=== PATIENT | female | born 1965 | race Two or more races ===

== ENCOUNTER 2016-11-06 18:39 | Inpatient (IN) | payer MEDICARE, OTHER ==
--- NOTE | 2016-11-06 19:38 | C.PDOC ---
History Of Present Illness pt presents with an expanding left upper breast mass. Worsening over the last few months. No f/c. Serous sanguineous drainage, some moderate discomfort. No f/ c/n/v. Time Seen by Provider: 11/06/16 19:35 Chief Complaint (Nursing): Abnormal Skin Integrity History Per: Patient, Family History/Exam Limitations: no limitations Onset/Duration Of Symptoms: Days (90), Gradual Current Symptoms Are (Timing): Worse Location Of Injury: Left: Chest (breast) Quality Of Symptoms: Painful, Swollen, Draining Severity: Moderate Pain Scale Rating Of: 6 Recent travel outside of the [place]: No Additional History Per: Family Past Medical History Reviewed: Historical Data, Nursing Documentation, Vital Signs Vital Signs: Last Vital Signs Temp 98.4 F 11/06/16 18:57 Pulse 120 H 11/06/16 20:30 Resp 20 11/06/16 20:30 BP 124/79 11/06/16 20:30 Pulse Ox 98 11/06/16 21:29 - Medical History PMH: Anemia, Arthritis, Rheumatoid Arthritis Family History: States: No Known Family Hx - Social History Hx Tobacco Use: No Hx Alcohol Use: No Hx Substance Use: No - Immunization History Hx Tetanus Toxoid Vaccination: No Hx Influenza Vaccination: Yes Hx Pneumococcal Vaccination: Yes Review Of Systems Constitutional: Negative for: Fever, Chills ENT: Negative for: Throat Pain Cardiovascular: Negative for: Chest Pain, Palpitations Respiratory: Negative for: Shortness of Breath Gastrointestinal: Negative for: Nausea, Vomiting, Abdominal Pain Genitourinary: Negative for: Dysuria Musculoskeletal: Negative for: Back Pain Skin: Positive for: Lesions (left breast) Neurological: Negative for: Weakness Psych: Negative for: Anxiety Physical Exam - Physical Exam Appears: Non-toxic Skin: Warm, Other (4x6 cm raised mass, tender, with some bloody exudates oozing) Head: Normacephalic Eye(s): bilateral: Normal Inspection Oral Mucosa: Moist Neck: Trachea Midline, Supple Lymphatic: Adenopathy (left axilla) Chest: Symmetrical, Other (left upper quadrant mass, tender, oozing sero sanguinous material,) Cardiovascular: Rhythm Regular Respiratory: No Rales, No Rhonchi, No Wheezing Gastrointestinal/Abdominal: Soft, No Tenderness Back: No CVA Tenderness Extremity: Tenderness, Other (b/l hand arthitis changes) Extremity: Bilateral: Atraumatic Neurological/Psych: Oriented x3, Normal Speech, Normal Cognition Gait: Steady ED Course And Treatment - Laboratory Results Result Diagrams: 11/06/16 19:59 11/06/16 19:59 O2 Sat by Pulse Oximetry: 98 (RA) Pulse Ox Interpretation: Normal - CT Scan/US CT Chest w/o contrast Other Rad Studies (CT/US): Interpreted By Me, Read By Radiologist CT/US Interpretation: EXAM: CT Chest Without Intravenous Contrast. CLINICAL HISTORY: 50 years old, female; Signs and symptoms; Mass, lump, or swelling in the chest; Additional info: Left. breast mass. TECHNIQUE: Axial computed tomography images of the chest without intravenous contrast. This CT exam was. performed using one or more of the following dose reduction techniques: automated exposure. control, adjustment of the mA and/or kV according to patient size, and/or use of iterative. reconstruction technique. Coronal and sagittal reformatted images were created and reviewed. EXAM DATE/TIME: 2016 7:51 PM. COMPARISON: There are no prior studies for comparison. FINDINGS : Lungs and pleural spaces: Trachea and main bronchi are patent. There is a 5.3 mm right lower lobe. pulmonary nodule. There is a 3 mm right upper lobe peripheral pulmonary nodule. There is a 7.6. mm left upper lobe nodule. There is minimal atelectasis and scarring at the right base. There is a left. effusion. There is compressive atelectasis at the left base. Heart and vasculature: Heart size is normal. There is no pericardial effusion.Aorta and main. pulmonary artery are normal in caliber.There are vascular calcifications. Mediastinum: Esophagus is not optimally demonstrated. There is shotty mediastinal nodes.[facility] are. not optimally evaluated without contrast material. Thyroid: Thyroid is unremarkable. Bones/joints: There is a focal lucent lesion in the L1 vertebral body. There is an infiltrative lesion at. T8. Soft tissues: There is edema in the left chest wall. There is paucity of body fat. Lymph nodes: There is a mass in the left breast. Mass is incompletely imaged. Lesion measures. at least 5.2 x 4 x 4.3 cm. there is left axillary adenopathy. There are shotty right axillary nodes. Upper abdomen: Streak and motion limited evaluation of the upper abdomen. There are bilateral. nonobstructing renal stones. IMPRESSION: 5.2 x 4 x 4.3 cm incompletely imaged left breast mass, left axillary adenopathy,. pulmonary nodules and bone lesions. Findings are suspicious for malignancy and metastatic disease. Biopsy and PET CT advised Progress Note: blood work, ct chest Disposition Discussed With Dr.: Shan Martinez Comment: accepted the pt on his service adn took over the care at 9:26 PM Doctor Will See Patient In The: Hospital Counseled Patient/Family Regarding: Studies Performed, Diagnosis - Disposition Disposition: HOSPITALIZED Disposition Time: 19:38 Condition: FAIR - POA Present On Arrival: Poor Glycemic Control - Clinical Impression Clinical Impression: Breast mass, left, Anemia Decision To Admit - Pt Status Changed To: Hospital Disposition Of: Inpatient - Admit Certification Admit to Inpatient:: After my assessment, the patient will require hospitalization for at least two midnights. This is because of the severity of symptoms shown, intensity of services needed, and/or the medical risk in this patient being treated as an outpatient. - InPatient: Physician Admission Certification: I certify that this patient requires 2 or more midnights of care for the following reason:: After my assessment, the patient will require hospitalization for at least two midnights. This is because of the severity of symptoms shown, intensity of services needed, and/or the medical risk in this patient being treated as an outpatient. - . Bed Request Type: Regular Admitting Physician: Shan Martinez Patient Diagnosis: Breast mass, left, Anemia
[2016-11-06] MEDS ORDERED: Sodium Chloride 0.9% 1,000 ML IV ONE (19:51)
[2016-11-06 20:04] LABS: BASO # 0.1 K/uL (0.0-0.2); EOS # 0.2 K/uL (0.0-0.7); EOS % 3.6 % (0.0-4.0); LYMPH # 1.4 K/uL (1.0-4.3); MONO # 0.2 K/uL (0.0-0.8); WHITE BLOOD COUNT 6.9 K/uL (4.8-10.8)
[2016-11-06 20:12] LABS: BASO % 1.8 % (0.0-2.0); HEMATOCRIT 24.7 % (34.0-47.0); LYMPH % 20.5 % (20.0-40.0); MEAN CORPUSCULAR HEMOGLOBIN 15.2 pg (27.0-31.0); MEAN CORPUSCULAR HGB CONC 28.9 g/dL (33.0-37.0); NRBC % 0.1 % (0.0-2.0); RED CELL DISTRIBUTION WIDTH 21.3 % (11.5-14.5)
[2016-11-06 20:13] LABS: MEAN CELL VOLUME 52.5 fL (81.0-99.0)
[2016-11-06 20:14] LABS: CHLORIDE 101 mmol/L (98-107); INR 1.1
[2016-11-06 20:15] LABS: POTASSIUM 4.1 mmol/L (3.6-5.2); SODIUM 135 mmol/L (132-148)
[2016-11-06 20:17] LABS: GFR AFRICAN-AMERICAN > 60
[2016-11-06 20:18] LABS: ALB/GLOB RATIO 0.7 (1.0-2.1); ALKALINE PHOSPHATASE 111 U/L (38-126); ALT/SGPT 17 U/L (9-52); AST/SGOT 31 U/L (14-36); BILIRUBIN,TOTAL 0.6 mg/dL (0.2-1.3); BLOOD UREA NITROGEN 13 mg/dL (7-17); CALCIUM 8.9 mg/dl (8.6-10.4); CARBON DIOXIDE 22 mmol/L (22-30); GLUCOSE,RANDOM 145 mg/dL (65-105)
--- NOTE | 2016-11-06 21:15 | CT ---
EXAM: CT Chest Without Intravenous Contrast CLINICAL HISTORY: 50 years old, female; Signs and symptoms; Mass, lump, or swelling in the chest; Additional info: Left breast mass TECHNIQUE: Axial computed tomography images of the chest without intravenous contrast. This CT exam was performed using one or more of the following dose reduction techniques: automated exposure control, adjustment of the mA and/or kV according to patient size, and/or use of iterative reconstruction technique. Coronal and sagittal reformatted images were created and reviewed. EXAM DATE/TIME: 11/06/2016 7:51 PM COMPARISON: There are no prior studies for comparison. FINDINGS: Lungs and pleural spaces: Trachea and main bronchi are patent. There is a 5.3 mm right lower lobe pulmonary nodule. There is a 3 mm right upper lobe peripheral pulmonary nodule. There is a 7.6 mm left upper lobe nodule. There is minimal atelectasis and scarring at the right base. There is a left effusion. There is compressive atelectasis at the left base Heart and vasculature: Heart size is normal. There is no pericardial effusion.Aorta and main pulmonary artery are normal in caliber.There are vascular calcifications. Mediastinum: Esophagus is not optimally demonstrated. There is shotty mediastinal nodes.Mercy are not optimally evaluated without contrast material. Thyroid: Thyroid is unremarkable. Bones/joints: There is a focal lucent lesion in the L1 vertebral body. There is an infiltrative lesion at T8. Soft tissues: There is edema in the left chest wall. There is paucity of body fat. Lymph nodes: There is a mass in the left breast. Mass is incompletely imaged. Lesion measures at least 5.2 x 4 x 4.3 cm. there is left axillary adenopathy. There are shotty right axillary nodes. Upper abdomen: Streak and motion limited evaluation of the upper abdomen. There are bilateral nonobstructing renal stones IMPRESSION: 5.2 x 4 x 4.3 cm incompletely imaged left breast mass, left axillary adenopathy, pulmonary nodules and bone lesions Findings are suspicious for malignancy and metastatic disease Biopsy and PET CT advised
[2016-11-07] MEDS ORDERED: DiphenhydrAMINE 50 mg/ml Inj IVP ONE (04:00)
[2016-11-07] MEDS ORDERED: Acetaminophen 650mg/20.3ml solution UD PO ONE (04:41)
--- NOTE | 2016-11-07 06:45 | CP.PCM.CON ---
History of Present Illness - History of Present Illness History of Present Illness: Surgery: Dr. Trinidad CC: L Breast mass HPI: 50F w. PMH of RA and anxiety presents w. L side breast mass. Pt states that she first noticed breast mass about a yr ago. She states that the mass was initially small but gradually grew over time. She states that the growth was rapid over the last 2 months. This is the first time she has seen a doctor to address the mass. She denies any pain. She states that over the last 2 month the mass bleeds on a daily basis, sometime there is a moderate amount of bleeding. She does report an unintentional 40lb weight loss over past yr. She reports decreased appetite, no N/V. She has constipation. She reports chronic neck/back pain. She denies fever, reports chills. No SANTOS, + blurred vision, no CP /palpitations, no SOB/cough. No Hematuria/dysuria PMH: see above PSH: x 2 Meds: MAR reviewed ALL: cipro, PCN Social: No ETOH/tobacco/drugs Fhx: No family hx of breast CA Review of Systems - Review of Systems All systems: reviewed and no additional remarkable complaints except (HPI) Past Patient History - Infectious Disease Hx of Infectious Diseases: None - Past Medical History & Family History Past Medical History?: Yes - Past Social History Smoking Status: Never Smoked - CARDIAC Hx Cardiac Disorders: No - PULMONARY Hx Respiratory Disorders: No - NEUROLOGICAL Hx Neurological Disorder: No - HEENT Hx HEENT Problems: No - RENAL Hx Chronic Kidney Disease: No - ENDOCRINE/METABOLIC Hx Endocrine Disorders: No - HEMATOLOGICAL/ONCOLOGICAL Hx Anemia: Yes Hx Blood Transfusions: Yes (2016) Hx Blood Transfusion Reaction: Yes (elevated temp) - INTEGUMENTARY Hx Dermatological Problems: Yes Other/Comment: left upper chest mass - MUSCULOSKELETAL/RHEUMATOLOGICAL Hx Musculoskeletal Disorders: Yes Hx Arthritis: Yes (severe athritis) Hx Falls: No Hx Rheumatoid Arthritis: Yes - GASTROINTESTINAL Hx Gastrointestinal Disorders: No - GENITOURINARY/GYNECOLOGICAL Other/Comment: menopausal - PSYCHIATRIC Hx Anxiety: Yes Hx Substance Use: No - SURGICAL HISTORY Hx Surgeries: Yes Hx Section: Yes (x2) Other/Comment: d&c - ANESTHESIA Hx Anesthesia: Yes Hx Anesthesia Reactions: No Meds Allergies/Adverse Reactions: Allergies Allergy/AdvReac Type Severity Reaction Status Date / Time ciprofloxacin [From Cipro] Allergy Verified 11/06/16 19:50 magnesium Allergy Verified 11/06/16 19:50 Penicillins Allergy Verified 11/06/16 19:50 - Medications Medications: Current Medications Morphine Sulfate (Morphine) 2 mg IVP Q6 PRN PRN Reason: pain Physical Exam - Constitutional Appears: Non-toxic, No Acute Distress - Head Exam Head Exam: ATRAUMATIC, NORMOCEPHALIC - Eye Exam Eye Exam: EOMI - ENT Exam ENT Exam: Mucous Membranes Moist, Normal External Ear Exam - Neck Exam Neck exam: Positive for: Full Rom - Respiratory Exam Respiratory Exam: NORMAL BREATHING PATTERN. absent: Accessory Muscle Use, Respiratory Distress - GI/Abdominal Exam GI & Abdominal Exam: Soft. absent: Tenderness - Extremities Exam Extremities exam: Negative for: calf tenderness, pedal edema - Skin Additional comments: R Breast: No palpable masses, no lymphadenopathy L Breast: ~4x5cm exophytic mass in LUQ, hard, nontender, +erythema w. bleeding, no fluctuance, + axillary lymphadenopathy Nurse present for exam Results - Vital Signs Recent Vital Signs: Last Vital Signs Temp 98.0 F 11/07/16 06:14 Pulse 92 H 11/07/16 06:14 Resp 20 11/07/16 06:14 BP 110/67 11/07/16 06:14 Pulse Ox 98 11/06/16 23:21 - Labs Result Diagrams: 11/06/16 19:59 11/06/16 19:59 - Imaging and Cardiology CT scan - chest Status: Image reviewed by me, Report reviewed by me Assessment & Plan - Assessment and Plan (Free Text) Assessment: 50F w. L breast mass -will plan for core needle bx at bedside today -d/w attending Marii PGY2
--- NOTE | 2016-11-07 12:08 | CP.PCM.PN ---
Subjective - Date & Time of Evaluation Date of Evaluation: 11/07/16 Time of Evaluation: 08:10 - Subjective Subjective: HPI: 50F w. PMH of RA, anemia, and anxiety presents w. L side breast mass. Pt states that she first noticed breast mass about 1 year ago. She states that the mass was initially small but gradually grew over time. She states that the growth was rapid over the last 2 months. This is the first time she has seen a doctor to address the mass. She denies any pain. She states that over the last 2 month the mass bleeds on a daily basis, sometime there is a moderate amount of bleeding. Over the past year, she admits to decreased appetite, but denies any major weight loss (daughter agrees, stating she has always had a hard time gaining weight). She has constipation. She reports chronic neck/back pain. She denies fever, reports chills. No SANTOS, + blurred vision, no CP/palpitations, no SOB/cough. No Hematuria/dysuria. PMH: RA, Anemia, anxiety, L breast mass PSH: x 2 Meds: MAR reviewed ALL: cipro, PCN Social: No ETOH/tobacco/drugs Fhx: No family hx of breast CA Objective - Vital Signs/Intake and Output Vital Signs (last 24 hours): Temp Pulse Resp BP Pulse Ox 98.2 F 82 20 121/72 99 11/07/16 08:32 11/07/16 08:32 11/07/16 08:32 11/07/16 08:32 11/07/16 07:27 Intake and Output: 11/07/16 11/07/16 06:59 18:59 Intake Total 130 475 Balance 130 475 - Medications Medications: Current Medications Morphine Sulfate (Morphine) 2 mg IVP Q6 PRN PRN Reason: pain - Labs Labs: PT 12.7 SECONDS (9.7-12.2) H 11/06/16 19:59 INR 1.1 11/06/16 19:59 APTT 22 SECONDS (21-34) 11/06/16 19:59 - Additional Findings Additional findings: - Constitutional Appears: Non-toxic, No Acute Distress - Head Exam Head Exam: ATRAUMATIC, NORMOCEPHALIC - Eye Exam Eye Exam: EOMI - ENT Exam ENT Exam: Mucous Membranes Moist, Normal External Ear Exam - Neck Exam Neck exam: Positive for: Full Rom - Respiratory Exam Respiratory Exam: NORMAL BREATHING PATTERN. absent: Accessory Muscle Use, Respiratory Distress - Cardiovascular Exam Cardiovascular Exam: REGULAR RHYTHM, +S1, +S2 - GI/Abdominal Exam GI & Abdominal Exam: Soft. absent: Tenderness - Extremities Exam Extremities exam: Negative for: calf tenderness, pedal edema - Skin Additional comments: R Breast: No palpable masses, no lymphadenopathy L Breast: 4x4cm mass in LUQ (hard, nontender, +erythema, + axillary lymphadenopathy) Assessment and Plan - Assessment and Plan (Free Text) Assessment: Breast Mass - Left -CT chest w/o contrast - 5.2 x 4 x 4.3 cm incompletely imaged left breast mass , left axillary adenopathy, pulmonary nodules and bone lesions. Findings are suspicious for malignancy and metastatic disease. Biopsy and PET CT advised -Consult Surgery, Dr. Trinidad, f/u recs -Plan for core needle bx at bedside today -Morphine Sulfate (Morphine) 2 mg IVP Q6 PRN, pain -Consult Pulm, Dr. Acosta, f/u recs (lung nodule, r/o mets) Anemia - Hgb 7.7, mcv 56.3 - Hgb 7.1 on admission -> transfused 1u PRBC - type and screen - UA with trace leuk esterase, negative nitrate, +squamous epith cells, likely contaminant. Patient asymptomatic. Prophylaxis - regular diet - pepcid 20mg po qd
[2016-11-07 13:15] LABS: RBC URINE 25 /hpf (0-3); URINE BACTERIA RARE (<OCC); URINE BILIRUBIN NEGATIVE (NEGATIVE); URINE BLOOD 1+ (NEGATIVE); URINE COLOR Yellow (YELLOW); URINE GLUCOSE (UA) NORMAL (Normal); URINE KETONE NEGATIVE (NEGATIVE); URINE LEUKOCYTE ESTERASE TRACE Leu/uL (Negative); URINE PROTEIN 1+ mg/dL (NEGATIVE); URINE UROBILINOGEN NORMAL mg/dL (0.2-1.0); WBC URINE 13 /hpf (0-5)
[2016-11-07 14:42] LABS: BASO % 0.3 % (0.0-2.0); EOS # 0.1 K/uL (0.0-0.7); EOS % 0.9 % (0.0-4.0); HEMATOCRIT 25.2 % (34.0-47.0); LYMPH # 0.7 K/uL (1.0-4.3); LYMPH % 6.7 % (20.0-40.0); MEAN CORPUSCULAR HEMOGLOBIN 17.1 pg (27.0-31.0); MEAN CORPUSCULAR HGB CONC 30.4 g/dL (33.0-37.0); MEAN PLATELET VOLUME 8.6 fL (7.2-11.7); MONO # 0.4 K/uL (0.0-0.8); MONO % 3.6 % (0.0-10.0)
[2016-11-07 14:50] LABS: WHITE BLOOD COUNT 10.5 K/uL (4.8-10.8)
[2016-11-07 14:51] LABS: MEAN CELL VOLUME 56.3 fL (81.0-99.0); PLATELET COUNT 448 K/uL (130-400)
[2016-11-07 14:55] LABS: CHLORIDE 105 mmol/L (98-107); POTASSIUM 3.6 mmol/L (3.6-5.2); SODIUM 137 mmol/L (132-148)
[2016-11-07 14:57] LABS: ALB/GLOB RATIO 0.7 (1.0-2.1); ALKALINE PHOSPHATASE 86 U/L (38-126); ALT/SGPT 8 U/L (9-52); AST/SGOT 22 U/L (14-36); BILIRUBIN,TOTAL 1.4 mg/dL (0.2-1.3); BLOOD UREA NITROGEN 14 mg/dL (7-17); CARBON DIOXIDE 24 mmol/L (22-30); GFR AFRICAN-AMERICAN > 60; TOTAL PROTEIN 7.6 g/dL (6.3-8.3)
[2016-11-07 14:58] LABS: CALCIUM 8.4 mg/dl (8.6-10.4); GLUCOSE,RANDOM 117 mg/dL (65-105); MAGNESIUM 1.9 mg/dL (1.6-2.3); PHOSPHOROUS 3.3 mg/dL (2.5-4.5)
--- NOTE | 2016-11-07 15:43 | CP.PCM.CON ---
Past Patient History - Infectious Disease Hx of Infectious Diseases: None - Past Medical History & Family History Past Medical History?: Yes - Past Social History Smoking Status: Never Smoked - CARDIAC Hx Cardiac Disorders: No - PULMONARY Hx Respiratory Disorders: No - NEUROLOGICAL Hx Neurological Disorder: No - HEENT Hx HEENT Problems: No - RENAL Hx Chronic Kidney Disease: No - ENDOCRINE/METABOLIC Hx Endocrine Disorders: No - HEMATOLOGICAL/ONCOLOGICAL Hx Anemia: Yes Hx Blood Transfusions: Yes (2016) Hx Blood Transfusion Reaction: Yes (elevated temp) - INTEGUMENTARY Hx Dermatological Problems: Yes Other/Comment: left upper chest mass - MUSCULOSKELETAL/RHEUMATOLOGICAL Hx Musculoskeletal Disorders: Yes Hx Arthritis: Yes (severe athritis) Hx Falls: No Hx Rheumatoid Arthritis: Yes - GASTROINTESTINAL Hx Gastrointestinal Disorders: No - GENITOURINARY/GYNECOLOGICAL Other/Comment: menopausal - PSYCHIATRIC Hx Anxiety: Yes Hx Substance Use: No - SURGICAL HISTORY Hx Surgeries: Yes Hx Section: Yes (x2) Other/Comment: d&c - ANESTHESIA Hx Anesthesia: Yes Hx Anesthesia Reactions: No Meds Allergies/Adverse Reactions: Allergies Allergy/AdvReac Type Severity Reaction Status Date / Time ciprofloxacin [From Cipro] Allergy Verified 11/06/16 19:50 magnesium Allergy Verified 11/06/16 19:50 Penicillins Allergy Verified 11/06/16 19:50 - Medications Medications: Current Medications Morphine Sulfate (Morphine) 2 mg IVP Q6 PRN PRN Reason: pain Results - Vital Signs Recent Vital Signs: Last Vital Signs Temp 98.2 F 11/07/16 08:32 Pulse 82 11/07/16 08:32 Resp 20 11/07/16 08:32 BP 121/72 11/07/16 08:32 Pulse Ox 99 11/07/16 07:27 - Labs Result Diagrams: 11/07/16 14:25 11/07/16 14:25 Labs: Laboratory Results - last 24 hr 11/07/16 11/07/16 11/07/16 12:53 14:25 14:25 WBC 10.5 D RBC 4.48 Hgb 7.7 L Hct 25.2 L MCV 56.3 L D MCH 17.1 L MCHC 30.4 L RDW 25.0 H Plt Count 448 H D MPV 8.6 Neut % (Auto) 88.5 H Lymph % (Auto) 6.7 L Nelson % (Auto) 3.6 Eos % (Auto) 0.9 Baso % (Auto) 0.3 Neut # 9.3 H Lymph # 0.7 L Nelson # 0.4 Eos # 0.1 Baso # 0.0 Sodium 137 Potassium 3.6 Chloride 105 Carbon Dioxide 24 Anion Gap 12 BUN 14 Creatinine 0.5 L Est GFR ( Amer) > 60 Est GFR (Non-Af Amer) > 60 Random Glucose 117 H Calcium 8.4 L Phosphorus 3.3 Magnesium 1.9 Total Bilirubin 1.4 H AST 22 ALT 8 L D Alkaline Phosphatase 86 Total Protein 7.6 Albumin 3.2 L Globulin 4.4 H Albumin/Globulin Ratio 0.7 L Urine Color Yellow Urine Clarity Clear Urine pH 5.0 Ur Specific [place] 1.028 Urine Protein 1+ H Urine Glucose (UA) Normal Urine Ketones Negative Urine Blood 1+ H Urine Nitrate Negative Urine Bilirubin Negative Urine Urobilinogen Normal Ur Leukocyte Esterase Trace Urine WBC (Auto) 13 H Urine RBC (Auto) 25 H Ur Squamous Epith Cells 7 H Urine Bacteria Rare Urine HCG, Qual Negative
[2016-11-07 16:06] LABS: NEUTROPHIL 90 % (50-75); TOTAL CELLS COUNTED 100
--- NOTE | 2016-11-07 16:06 | CP.PCM.HP ---
Past Patient History - Infectious Disease Hx of Infectious Diseases: None - Past Medical History & Family History Past Medical History?: Yes - Past Social History Smoking Status: Never Smoked - CARDIAC Hx Cardiac Disorders: No - PULMONARY Hx Respiratory Disorders: No - NEUROLOGICAL Hx Neurological Disorder: No - HEENT Hx HEENT Problems: No - RENAL Hx Chronic Kidney Disease: No - ENDOCRINE/METABOLIC Hx Endocrine Disorders: No - HEMATOLOGICAL/ONCOLOGICAL Hx Anemia: Yes Hx Blood Transfusions: Yes (2016) Hx Blood Transfusion Reaction: Yes (elevated temp) - INTEGUMENTARY Hx Dermatological Problems: Yes Other/Comment: left upper chest mass - MUSCULOSKELETAL/RHEUMATOLOGICAL Hx Musculoskeletal Disorders: Yes Hx Arthritis: Yes (severe athritis) Hx Falls: No Hx Rheumatoid Arthritis: Yes - GASTROINTESTINAL Hx Gastrointestinal Disorders: No - GENITOURINARY/GYNECOLOGICAL Other/Comment: menopausal - PSYCHIATRIC Hx Anxiety: Yes Hx Substance Use: No - SURGICAL HISTORY Hx Surgeries: Yes Hx Section: Yes (x2) Other/Comment: d&c - ANESTHESIA Hx Anesthesia: Yes Hx Anesthesia Reactions: No Meds Allergies/Adverse Reactions: Allergies Allergy/AdvReac Type Severity Reaction Status Date / Time ciprofloxacin [From Cipro] Allergy Verified 11/06/16 19:50 magnesium Allergy Verified 11/06/16 19:50 Penicillins Allergy Verified 11/06/16 19:50 Physical Exam - Constitutional Appears: Well - Head Exam Head Exam: ATRAUMATIC, NORMAL INSPECTION, NORMOCEPHALIC - Eye Exam Eye Exam: EOMI, Normal appearance, PERRL Pupil Exam: NORMAL ACCOMODATION, PERRL - ENT Exam ENT Exam: Mucous Membranes Moist, Normal Exam - Neck Exam Neck exam: Positive for: Normal Inspection - Respiratory Exam Respiratory Exam: Decreased Breath Sounds - Cardiovascular Exam Cardiovascular Exam: REGULAR RHYTHM, +S1, +S2 - GI/Abdominal Exam GI & Abdominal Exam: Diminished Bowel Sounds, Soft - Rectal Exam Rectal Exam: Deferred Results - Vital Signs Recent Vital Signs: Last Vital Signs Temp 98.2 F 11/07/16 08:32 Pulse 82 11/07/16 08:32 Resp 20 11/07/16 08:32 BP 121/72 11/07/16 08:32 Pulse Ox 99 11/07/16 07:27 - Labs Result Diagrams: 11/07/16 14:25 11/07/16 14:25 Labs: Laboratory Results - last 24 hr 11/07/16 11/07/16 11/07/16 12:53 14:25 14:25 WBC 10.5 D RBC 4.48 Hgb 7.7 L Hct 25.2 L MCV 56.3 L D MCH 17.1 L MCHC 30.4 L RDW 25.0 H Plt Count 448 H D MPV 8.6 Neut % (Auto) 88.5 H Lymph % (Auto) 6.7 L Elliott % (Auto) 3.6 Eos % (Auto) 0.9 Baso % (Auto) 0.3 Neut # 9.3 H Lymph # 0.7 L Elliott # 0.4 Eos # 0.1 Baso # 0.0 Sodium 137 Potassium 3.6 Chloride 105 Carbon Dioxide 24 Anion Gap 12 BUN 14 Creatinine 0.5 L Est GFR ( Amer) > 60 Est GFR (Non-Af Amer) > 60 Random Glucose 117 H Calcium 8.4 L Phosphorus 3.3 Magnesium 1.9 Total Bilirubin 1.4 H AST 22 ALT 8 L D Alkaline Phosphatase 86 Total Protein 7.6 Albumin 3.2 L Globulin 4.4 H Albumin/Globulin Ratio 0.7 L Urine Color Yellow Urine Clarity Clear Urine pH 5.0 Ur Specific [place] 1.028 Urine Protein 1+ H Urine Glucose (UA) Normal Urine Ketones Negative Urine Blood 1+ H Urine Nitrate Negative Urine Bilirubin Negative Urine Urobilinogen Normal Ur Leukocyte Esterase Trace Urine WBC (Auto) 13 H Urine RBC (Auto) 25 H Ur Squamous Epith Cells 7 H Urine Bacteria Rare Urine HCG, Qual Negative
[2016-11-08 06:34] LABS: BASO % 0.6 % (0.0-2.0); EOS # 0.3 K/uL (0.0-0.7); EOS % 5.8 % (0.0-4.0); HEMATOCRIT 23.5 % (34.0-47.0); LYMPH # 1.4 K/uL (1.0-4.3); LYMPH % 23.4 % (20.0-40.0); MEAN CELL VOLUME 56.2 fL (81.0-99.0); MEAN CORPUSCULAR HGB CONC 30.2 g/dL (33.0-37.0); MEAN PLATELET VOLUME 8.7 fL (7.2-11.7); MONO # 0.3 K/uL (0.0-0.8); RED CELL DISTRIBUTION WIDTH 25.7 % (11.5-14.5); WHITE BLOOD COUNT 5.9 K/uL (4.8-10.8)
[2016-11-08 06:54] LABS: CHLORIDE 107 mmol/L (98-107)
[2016-11-08 06:55] LABS: POTASSIUM 3.6 mmol/L (3.6-5.2); SODIUM 139 mmol/L (132-148)
[2016-11-08 06:57] LABS: ALB/GLOB RATIO 0.7 (1.0-2.1); ALKALINE PHOSPHATASE 80 U/L (38-126); AST/SGOT 30 U/L (14-36); BILIRUBIN,TOTAL 0.5 mg/dL (0.2-1.3); BLOOD UREA NITROGEN 13 mg/dL (7-17); CARBON DIOXIDE 25 mmol/L (22-30); GFR AFRICAN-AMERICAN > 60; TOTAL PROTEIN 7.3 g/dL (6.3-8.3)
[2016-11-08 06:58] LABS: CALCIUM 8.2 mg/dl (8.6-10.4); GLUCOSE,RANDOM 85 mg/dL (65-105); PHOSPHOROUS 3.2 mg/dL (2.5-4.5)
[2016-11-08 07:05] LABS: ALT/SGPT < 6 U/L (9-52)
--- NOTE | 2016-11-08 07:42 | PCM.SURG1 ---
Surgeon's Initial Post Op Note - Surgeon's Notes Surgeon: Amos Straw Hat Washer Operator: Constanza Pre-Operative Diagnosis: left breast mass Operative Findings: left breast mass Post-Operative Diagnosis: left breast mass Operation Performed: Left breast mass core biopsy. Patient was prepped and draped in sterile fashion at bedside with betadine and sterile towels. Prepped region was anesthesized with 5cc of 1% lidocaine. Sal-Cut biopsy needle was inserted through anesthesized region and via the mechanism on the device, 6 biopsy samples were taken and places in a formalin solution. Pressure dressing with surgicell and 4by4 was used to stop the oozing from the incision site. Specimen/Specimens Removed: left breat mass samples Estimated Blood Loss: EBL {In ML}: 20 Date of Surgery/Procedure: 11/08/16 Time of Surgery/Procedure: 16:30
--- NOTE | 2016-11-08 07:46 | CP.PCM.PN ---
Subjective - Date & Time of Evaluation Date of Evaluation: 11/08/16 Time of Evaluation: 07:43 - Subjective Subjective: SURGERY NOTE FOR DR. HINES 50F seen and examined at bedside. Patient resting comfortably, denies pain and denies further oozing of blood from the left breast mass. Objective - Vital Signs/Intake and Output Vital Signs (last 24 hours): Temp Pulse Resp BP Pulse Ox 98.5 F 106 H 20 112/72 98 11/07/16 23:19 11/07/16 23:19 11/07/16 23:19 11/07/16 23:19 11/07/16 23:19 Intake and Output: 11/08/16 11/08/16 06:59 18:59 Intake Total 320 Balance 320 - Medications Medications: Current Medications Famotidine (Pepcid) 20 mg PO DAILY DANNA Morphine Sulfate (Morphine) 2 mg IVP Q6 PRN PRN Reason: pain - Labs Labs: 11/08/16 06:15 11/08/16 06:15 PT 12.7 SECONDS (9.7-12.2) H 11/06/16 19:59 INR 1.1 11/06/16 19:59 APTT 22 SECONDS (21-34) 11/06/16 19:59 - Constitutional Appears: Non-toxic, No Acute Distress - Cardiovascular Exam Cardiovascular Exam: REGULAR RHYTHM, +S1, +S2 - GI/Abdominal Exam GI & Abdominal Exam: Soft. absent: Distended, Firm, Guarding, Rigid, Tenderness , Rebound - Neurological Exam Neurological Exam: Alert, Awake - Skin Skin Exam: Dry, Intact, Normal Color, Warm Additional comments: left breast mass present, erythematous skin on top of the mass, dressing and surgicell in place Assessment and Plan - Assessment and Plan (Free Text) Assessment: 50F with left breast mass, s/p bedside core needle biopsy POD1 - await pathology report - monitor dressing site Further recs discuss with Dr. Amos Apodaca, PGY1
--- NOTE | 2016-11-08 08:00 | CP.PCM.PN ---
Subjective - Date & Time of Evaluation Date of Evaluation: 11/07/16 Time of Evaluation: 16:00 - Subjective Subjective: Surgeon: Amos Pearl Diver: Constanza Date of procedure: 11/07/16 Left breast mass core biopsy. Patient was prepped and draped in sterile fashion at bedside with betadine and sterile towels. Prepped region was anesthesized with 5cc of 1% lidocaine. Sal-Cut biopsy needle was inserted through anesthesized region and via the mechanism on the device, 6 biopsy samples were taken and places in a formalin solution. Pressure dressing with surgicell and 4by4 was used to stop the oozing from the incision site. Nicolas Apodaca, PGY1 Objective - Vital Signs/Intake and Output Vital Signs (last 24 hours): Temp Pulse Resp BP Pulse Ox 98.5 F 106 H 20 112/72 98 11/07/16 23:19 11/07/16 23:19 11/07/16 23:19 11/07/16 23:19 11/07/16 23:19 Intake and Output: 11/08/16 11/08/16 06:59 18:59 Intake Total 320 Balance 320 - Medications Medications: Current Medications Famotidine (Pepcid) 20 mg PO DAILY [facility] Morphine Sulfate (Morphine) 2 mg IVP Q6 PRN PRN Reason: pain - Labs Labs: 11/08/16 06:15 11/08/16 06:15 PT 12.7 SECONDS (9.7-12.2) H 11/06/16 19:59 INR 1.1 11/06/16 19:59 APTT 22 SECONDS (21-34) 11/06/16 19:59
--- NOTE | 2016-11-08 11:30 | CP.PCM.PN ---
Subjective - Date & Time of Evaluation Date of Evaluation: 11/08/16 Time of Evaluation: 07:40 - Subjective Subjective: PGY2 Medicine Note - Dr. Martinez's Service Patient seen and examined at bedside. No overnight events per nursing. Patient reports biopsy procedure of L breast mass went well on 11/07. Awaiting path results. Patient denies pain at site of breast mass. Denies further oozing. Patient complains of mild constipation. Denies f/c, headache, blurry vision, chest pain, palpitations, SOB, abdominal pain, n/v, diarrhea, dysuria, urinary frequency, or any other acute complaints. Objective - Vital Signs/Intake and Output Vital Signs (last 24 hours): Temp Pulse Resp BP Pulse Ox 97.9 F 89 20 110/67 99 11/08/16 08:54 11/08/16 08:54 11/08/16 08:54 11/08/16 08:54 11/08/16 08:54 Intake and Output: 11/08/16 11/08/16 06:59 18:59 Intake Total 320 Balance 320 - Medications Medications: Current Medications Famotidine (Pepcid) 20 mg PO DAILY [facility] Last Admin: 11/08/16 10:32 Dose: 20 mg Morphine Sulfate (Morphine) 2 mg IVP Q6 PRN PRN Reason: pain - Labs Labs: 11/08/16 06:15 11/08/16 06:15 PT 12.7 SECONDS (9.7-12.2) H 11/06/16 19:59 INR 1.1 11/06/16 19:59 APTT 22 SECONDS (21-34) 11/06/16 19:59 - Additional Findings Additional findings: - Constitutional Appears: Non-toxic, No Acute Distress - Head Exam Head Exam: ATRAUMATIC, NORMOCEPHALIC - Eye Exam Eye Exam: EOMI - ENT Exam ENT Exam: Mucous Membranes Moist, Normal External Ear Exam - Neck Exam Neck exam: Positive for: Full Rom - Respiratory Exam Respiratory Exam: NORMAL BREATHING PATTERN. absent: Accessory Muscle Use, Respiratory Distress - Cardiovascular Exam Cardiovascular Exam: REGULAR RHYTHM, +S1, +S2 - GI/Abdominal Exam GI & Abdominal Exam: Soft. absent: Tenderness - Extremities Exam Extremities exam: Negative for: calf tenderness, pedal edema - Skin Additional comments: R Breast: No palpable masses, no lymphadenopathy L Breast: 4x4cm mass in LUQ (hard, nontender, +erythema, + axillary lymphadenopathy) - biopsy performed 11/07, site is CDI, no pain. Assessment and Plan - Assessment and Plan (Free Text) Assessment: Breast Mass - Left 11/08: f/u Core needle biopsy results (pending). f/u Dr. Acosta (Pulm) regarding recs for lung nodule, r/o mets. -CT chest w/o contrast - 5.2 x 4 x 4.3 cm incompletely imaged left breast mass , left axillary adenopathy, pulmonary nodules and bone lesions. Findings are suspicious for malignancy and metastatic disease. Biopsy and PET CT advised -Consult Surgery, Dr. Trniidad, f/u recs -Plan for core needle bx at bedside today -Morphine Sulfate (Morphine) 2 mg IVP Q6 PRN, pain -Consult Pulm, Dr. Acosta, f/u recs (lung nodule, r/o mets) Anemia 11/09: f/u Hgb (patient will receive 1u PRBC at 8AM 11/09) 11/08: Hgb 7.1 -> transfuse 1u PRBC today, and 1u PRBC tomorrow. - Hgb 7.7, mcv 56.3 - Hgb 7.1 on admission -> transfused 1u PRBC - type and screen - UA with trace leuk esterase, negative nitrate, +squamous epith cells, likely contaminant. Patient asymptomatic. Constipation - Colace 100mg PO BID Prophylaxis - regular diet - pepcid 20mg po qd - Heparin 5k u SC Q12
[2016-11-08] MEDS ORDERED: DiphenhydrAMINE 50 mg/ml Inj IVP ONE (11:43)
[2016-11-08] MEDS ORDERED: DiphenhydrAMINE 50 mg/ml Inj IVP STA (13:45)
[2016-11-08] MEDS ORDERED: Potassium Chloride 20 mEq ER Tab PO ONE (14:00)
--- NOTE | 2016-11-08 14:57 | CP.PCM.PN ---
Subjective - Date & Time of Evaluation Date of Evaluation: 11/08/16 Time of Evaluation: 14:57 Objective - Vital Signs/Intake and Output Vital Signs (last 24 hours): Temp Pulse Resp BP Pulse Ox 97.9 F 89 20 110/67 99 11/08/16 08:54 11/08/16 08:54 11/08/16 08:54 11/08/16 08:54 11/08/16 08:54 Intake and Output: 11/08/16 11/08/16 06:59 18:59 Intake Total 320 Balance 320 - Medications Medications: Current Medications Famotidine (Pepcid) 20 mg PO DAILY [facility] Last Admin: 11/08/16 10:32 Dose: 20 mg Morphine Sulfate (Morphine) 2 mg IVP Q6 PRN PRN Reason: pain - Labs Labs: 11/08/16 06:15 11/08/16 06:15 PT 12.7 SECONDS (9.7-12.2) H 11/06/16 19:59 INR 1.1 11/06/16 19:59 APTT 22 SECONDS (21-34) 11/06/16 19:59
--- NOTE | 2016-11-08 15:28 | CP.PCM.PN ---
Subjective - Date & Time of Evaluation Date of Evaluation: 11/08/16 Time of Evaluation: 09:20 - Subjective Subjective: clinically same Objective - Vital Signs/Intake and Output Vital Signs (last 24 hours): Temp Pulse Resp BP Pulse Ox 98.4 F 93 H 20 119/73 99 11/08/16 15:19 11/08/16 15:19 11/08/16 15:19 11/08/16 15:19 11/08/16 08:54 Intake and Output: 11/08/16 11/08/16 06:59 18:59 Intake Total 320 0 Balance 320 0 - Medications Medications: Current Medications Famotidine (Pepcid) 20 mg PO DAILY [facility] Last Admin: 11/08/16 10:32 Dose: 20 mg Morphine Sulfate (Morphine) 2 mg IVP Q6 PRN PRN Reason: pain - Labs Labs: 11/08/16 06:15 11/08/16 06:15 PT 12.7 SECONDS (9.7-12.2) H 11/06/16 19:59 INR 1.1 11/06/16 19:59 APTT 22 SECONDS (21-34) 11/06/16 19:59 - Constitutional Appears: Well - Head Exam Head Exam: ATRAUMATIC, NORMAL INSPECTION, NORMOCEPHALIC - Eye Exam Eye Exam: EOMI, Normal appearance, PERRL Pupil Exam: NORMAL ACCOMODATION, PERRL - ENT Exam ENT Exam: Mucous Membranes Moist, Normal Exam - Neck Exam Neck Exam: Full ROM, Normal Inspection. absent: Lymphadenopathy - Respiratory Exam Respiratory Exam: Decreased Breath Sounds - Cardiovascular Exam Cardiovascular Exam: REGULAR RHYTHM, +S1, +S2 - GI/Abdominal Exam GI & Abdominal Exam: Soft, Diminished Bowel Sounds - Rectal Exam Rectal Exam: Deferred
[2016-11-09 06:48] LABS: IRON 11 ug/dL (37-170)
[2016-11-09 06:54] LABS: CHLORIDE 104 mmol/L (98-107); POTASSIUM 3.4 mmol/L (3.6-5.2); SODIUM 137 mmol/L (132-148)
[2016-11-09 06:56] LABS: ALB/GLOB RATIO 0.7 (1.0-2.1); ALKALINE PHOSPHATASE 74 U/L (38-126); AST/SGOT 19 U/L (14-36); BASO % 0.5 % (0.0-2.0); BILIRUBIN,TOTAL 0.4 mg/dL (0.2-1.3); BLOOD UREA NITROGEN 11 mg/dL (7-17); CARBON DIOXIDE 25 mmol/L (22-30); EOS # 0.4 K/uL (0.0-0.7); EOS % 6.2 % (0.0-4.0); GFR AFRICAN-AMERICAN > 60; HEMATOCRIT 27.7 % (34.0-47.0); LYMPH # 1.2 K/uL (1.0-4.3); MEAN CORPUSCULAR HEMOGLOBIN 18.1 pg (27.0-31.0); MEAN CORPUSCULAR HGB CONC 30.6 g/dL (33.0-37.0); MEAN PLATELET VOLUME 8.6 fL (7.2-11.7); MONO # 0.4 K/uL (0.0-0.8); MONO % 5.9 % (0.0-10.0); NRBC % 0.1 % (0.0-2.0); RED CELL DISTRIBUTION WIDTH 28.7 % (11.5-14.5); TOTAL PROTEIN 7.4 g/dL (6.3-8.3); WHITE BLOOD COUNT 6.6 K/uL (4.8-10.8)
[2016-11-09 06:57] LABS: ALT/SGPT 9 U/L (9-52); CALCIUM 8.6 mg/dl (8.6-10.4); GLUCOSE,RANDOM 118 mg/dL (65-105); MAGNESIUM 1.9 mg/dL (1.6-2.3); PHOSPHOROUS 3.4 mg/dL (2.5-4.5)
--- NOTE | 2016-11-09 09:50 | CP.PCM.PN ---
Subjective - Date & Time of Evaluation Date of Evaluation: 11/09/16 Time of Evaluation: 07:05 - Subjective Subjective: PGY2 Medicine Note - Dr. Martinez's Service Patient seen and examined at bedside. No overnight events per nursing. Patient reports biopsy procedure of L breast mass went well on 11/07. Awaiting path results. Patient denies pain at site of breast mass. Denies further oozing. Patient reports constipation resolved with Colace. Denies f/c, headache, blurry vision, chest pain, palpitations, SOB, abdominal pain, n/v, diarrhea, dysuria, urinary frequency, or any other acute complaints. Objective - Vital Signs/Intake and Output Vital Signs (last 24 hours): Temp Pulse Resp BP Pulse Ox 97.8 F 73 20 110/63 97 11/09/16 07:32 11/09/16 07:32 11/09/16 07:32 11/09/16 07:32 11/09/16 07:32 Intake and Output: 11/09/16 11/09/16 06:59 18:59 Intake Total 770 Balance 770 - Medications Medications: Current Medications Famotidine (Pepcid) 20 mg PO DAILY [facility] Last Admin: 11/08/16 10:32 Dose: 20 mg Heparin Sodium (Porcine) (Heparin) 5,000 units SC Q12 [facility] Last Admin: 11/08/16 22:12 Dose: Not Given Lactulose (Enulose) 20 gm PO HS [facility] Last Admin: 11/08/16 22:09 Dose: Not Given Morphine Sulfate (Morphine) 2 mg IVP Q6 PRN PRN Reason: pain - Labs Labs: 11/09/16 06:23 11/09/16 06:23 PT 12.7 SECONDS (9.7-12.2) H 11/06/16 19:59 INR 1.1 11/06/16 19:59 APTT 29 SECONDS (21-34) D 11/09/16 06:23 - Additional Findings Additional findings: - Additional Findings Additional findings: - Constitutional Appears: Non-toxic, No Acute Distress - Head Exam Head Exam: ATRAUMATIC, NORMOCEPHALIC - Eye Exam Eye Exam: EOMI - ENT Exam ENT Exam: Mucous Membranes Moist, Normal External Ear Exam - Neck Exam Neck exam: Positive for: Full Rom - Respiratory Exam Respiratory Exam: NORMAL BREATHING PATTERN. absent: Accessory Muscle Use, Respiratory Distress - Cardiovascular Exam Cardiovascular Exam: REGULAR RHYTHM, +S1, +S2 - GI/Abdominal Exam GI & Abdominal Exam: Soft. absent: Tenderness - Extremities Exam Extremities exam: Negative for: calf tenderness, pedal edema - Skin Additional comments: R Breast: No palpable masses, no lymphadenopathy L Breast: 4x4cm mass in LUQ (hard, nontender, +erythema, + axillary lymphadenopathy) - biopsy performed 11/07, site is CDI, no pain. Assessment and Plan - Assessment and Plan (Free Text) Assessment: Breast Mass - Left 11/08-11/09: f/u Core needle biopsy results (pending). f/u Dr. Acosta (Pulm) regarding recs for lung nodule, r/o mets. -CT chest w/o contrast - 5.2 x 4 x 4.3 cm incompletely imaged left breast mass , left axillary adenopathy, pulmonary nodules and bone lesions. Findings are suspicious for malignancy and metastatic disease. Biopsy and PET CT advised -Consult Surgery, Dr. Trinidad, f/u recs -Plan for core needle bx at bedside today -Morphine Sulfate (Morphine) 2 mg IVP Q6 PRN, pain -Consult Pulm, Dr. Acosta, f/u recs (lung nodule, r/o mets) -Consult HemeOnc, Dr. Kenia Holt, f/u recs (breast mass) Anemia 11/09: Hg 8.5, Fe 11L, TIBC 325, %SAT 3L, Ferritin 36. -> Ferrlecit 125mg IVPB qd (5 doses total). Patient to receive 1u PRBC today. 11/08: Hgb 7.1 -> transfuse 1u PRBC today. - Hgb 7.7, mcv 56.3 - Hgb 7.1 on admission -> transfused 1u PRBC - type and screen - UA with trace leuk esterase, negative nitrate, +squamous epith cells, likely contaminant. Patient asymptomatic. Constipation - Resolving - Colace 100mg PO BID - Lactulose 20mg PO HS Prophylaxis - regular diet - pepcid 20mg po qd - Heparin 5k u SC Q12
[2016-11-09] MEDS ORDERED: Potassium Chloride 20 mEq ER Tab PO ONE ×4 (13:00→18:00)
[2016-11-09] MEDS ORDERED: Ferric Sodium Gluconat Complex 62.5 mg/5 ml Vial IVPB SCH (16:15)
--- NOTE | 2016-11-09 16:53 | CP.PCM.PN ---
Subjective - Date & Time of Evaluation Date of Evaluation: 11/09/16 Time of Evaluation: 08:20 - Subjective Subjective: clinically same Objective - Vital Signs/Intake and Output Vital Signs (last 24 hours): Temp Pulse Resp BP Pulse Ox 98.9 F 102 H 20 137/77 100 11/09/16 16:00 11/09/16 16:00 11/09/16 16:00 11/09/16 16:00 11/09/16 16:00 Intake and Output: 11/09/16 11/09/16 06:59 18:59 Intake Total 770 375 Balance 770 375 - Medications Medications: Current Medications Famotidine (Pepcid) 20 mg PO DAILY [facility] Last Admin: 11/09/16 10:52 Dose: Not Given Ferric Sodium Gluconate Complex (Ferrlecit) 125 mg IVPB DAILY [facility] Stop: 11/13/16 10:01 Heparin Sodium (Porcine) (Heparin) 5,000 units SC Q12 [facility] Last Admin: 11/09/16 10:52 Dose: Not Given Lactulose (Enulose) 20 gm PO HS [facility] Last Admin: 11/08/16 22:09 Dose: Not Given Morphine Sulfate (Morphine) 2 mg IVP Q6 PRN PRN Reason: pain Potassium Chloride (K-Dur 20 Meq Er Tab) 20 meq PO ONCE ONE Stop: 11/09/16 18:01 - Labs Labs: 11/09/16 06:23 11/09/16 06:23 PT 12.7 SECONDS (9.7-12.2) H 11/06/16 19:59 INR 1.1 11/06/16 19:59 APTT 29 SECONDS (21-34) D 11/09/16 06:23
--- NOTE | 2016-11-09 17:37 | CP.PCM.PN ---
Subjective - Date & Time of Evaluation Date of Evaluation: 11/09/16 Time of Evaluation: 17:36 Objective - Vital Signs/Intake and Output Vital Signs (last 24 hours): Temp Pulse Resp BP Pulse Ox 98.9 F 102 H 20 137/77 100 11/09/16 16:00 11/09/16 16:00 11/09/16 16:00 11/09/16 16:00 11/09/16 16:00 Intake and Output: 11/09/16 11/09/16 06:59 18:59 Intake Total 770 375 Balance 770 375 - Medications Medications: Current Medications Famotidine (Pepcid) 20 mg PO DAILY [facility] Last Admin: 11/09/16 10:52 Dose: Not Given Ferric Sodium Gluconate Complex (Ferrlecit) 125 mg IVPB DAILY [facility] Stop: 11/13/16 10:01 Heparin Sodium (Porcine) (Heparin) 5,000 units SC Q12 [facility] Last Admin: 11/09/16 10:52 Dose: Not Given Lactulose (Enulose) 20 gm PO HS [facility] Last Admin: 11/08/16 22:09 Dose: Not Given Morphine Sulfate (Morphine) 2 mg IVP Q6 PRN PRN Reason: pain Potassium Chloride (K-Dur 20 Meq Er Tab) 20 meq PO ONCE ONE Stop: 11/09/16 18:01 - Labs Labs: 11/09/16 06:23 11/09/16 06:23 PT 12.7 SECONDS (9.7-12.2) H 11/06/16 19:59 INR 1.1 11/06/16 19:59 APTT 29 SECONDS (21-34) D 11/09/16 06:23
[2016-11-09] MEDS ORDERED: DiphenhydrAMINE 50 mg/ml Inj IVP STA (18:11)
[2016-11-09] MEDS ORDERED: Sodium Chloride 0.9% 500 ML IV ONE (20:35)
[2016-11-09] MEDS: MethylPREDNISolone 40 mg Vial IVP SCH (21:38)
[2016-11-10] MEDS: MethylPREDNISolone 40 mg Vial IVP SCH ×3 (06:42→21:48)
[2016-11-10 08:04] LABS: BASO % 0.6 % (0.0-2.0); EOS # 0.3 K/uL (0.0-0.7); EOS % 4.2 % (0.0-4.0); HEMATOCRIT 30.5 % (34.0-47.0); LYMPH # 1.1 K/uL (1.0-4.3); LYMPH % 17.3 % (20.0-40.0); MEAN CORPUSCULAR HEMOGLOBIN 20.3 pg (27.0-31.0); MEAN CORPUSCULAR HGB CONC 32.4 g/dL (33.0-37.0); MEAN PLATELET VOLUME 8.8 fL (7.2-11.7); MONO # 0.4 K/uL (0.0-0.8); MONO % 5.8 % (0.0-10.0); RED CELL DISTRIBUTION WIDTH 32.2 % (11.5-14.5); WHITE BLOOD COUNT 6.2 K/uL (4.8-10.8)
[2016-11-10 08:23] LABS: MEAN CELL VOLUME 62.7 fL (81.0-99.0)
[2016-11-10 08:29] LABS: CHLORIDE 107 mmol/L (98-107)
[2016-11-10 08:30] LABS: POTASSIUM 3.5 mmol/L (3.6-5.2); SODIUM 140 mmol/L (132-148)
[2016-11-10 08:32] LABS: ALB/GLOB RATIO 0.6 (1.0-2.1); AST/SGOT 18 U/L (14-36); BILIRUBIN,TOTAL 0.6 mg/dL (0.2-1.3); CARBON DIOXIDE 24 mmol/L (22-30); GFR AFRICAN-AMERICAN > 60; TOTAL PROTEIN 7.3 g/dL (6.3-8.3)
[2016-11-10 08:33] LABS: ALKALINE PHOSPHATASE 69 U/L (38-126); ALT/SGPT 10 U/L (9-52); BLOOD UREA NITROGEN 12 mg/dL (7-17); CALCIUM 8.4 mg/dl (8.6-10.4); GLUCOSE,RANDOM 88 mg/dL (65-105); PHOSPHOROUS 3.6 mg/dL (2.5-4.5)
--- NOTE | 2016-11-10 09:13 | CP.PCM.PN ---
Subjective - Date & Time of Evaluation Date of Evaluation: 11/10/16 Time of Evaluation: 07:30 - Subjective Subjective: Medicine Note- Dr. Martinez's service Patient was seen and examined at bedside. Patient reports no acute complaints at this time. Per patient, she developed a fever last night while being transfused, so it was immediately stopped. Patient denies any chest pain, palpitations, dyspnea or fever at this time. Objective - Vital Signs/Intake and Output Vital Signs (last 24 hours): Temp Pulse Resp BP Pulse Ox 98.2 F 82 20 100/60 100 11/10/16 08:00 11/10/16 08:00 11/10/16 08:00 11/10/16 08:00 11/10/16 08:00 Intake and Output: 11/10/16 11/10/16 06:59 18:59 Intake Total 440 Balance 440 - Medications Medications: Current Medications Famotidine (Pepcid) 20 mg PO DAILY [facility] Last Admin: 11/09/16 10:52 Dose: Not Given Ferric Sodium Gluconate Complex (Ferrlecit) 125 mg IVPB DAILY [facility] Stop: 11/14/16 10:01 Heparin Sodium (Porcine) (Heparin) 5,000 units SC Q12 [facility] Last Admin: 11/09/16 21:37 Dose: Not Given Lactulose (Enulose) 20 gm PO HS [facility] Last Admin: 11/09/16 21:37 Dose: Not Given Methylprednisolone (Solu-Medrol) 40 mg IVP Q8 [facility] Last Admin: 11/10/16 06:42 Dose: Not Given Morphine Sulfate (Morphine) 2 mg IVP Q6 PRN PRN Reason: pain Potassium Chloride (K-Dur 20 Meq Er Tab) 40 meq PO ONCE ONE Stop: 11/10/16 09:11 - Labs Labs: 11/10/16 07:39 11/10/16 07:39 PT 12.7 SECONDS (9.7-12.2) H 11/06/16 19:59 INR 1.1 11/06/16 19:59 APTT 29 SECONDS (21-34) D 11/09/16 06:23 - Constitutional Appears: Non-toxic, No Acute Distress - Head Exam Head Exam: ATRAUMATIC, NORMAL INSPECTION, NORMOCEPHALIC - Eye Exam Pupil Exam: NORMAL ACCOMODATION, PERRL - ENT Exam ENT Exam: Mucous Membranes Moist - Neck Exam Neck Exam: Normal Inspection - Respiratory Exam Respiratory Exam: Clear to Ausculation Bilateral, NORMAL BREATHING PATTERN. absent: Rales, Rhonchi, Wheezes - Cardiovascular Exam Cardiovascular Exam: REGULAR RHYTHM, +S1, +S2 - GI/Abdominal Exam GI & Abdominal Exam: Soft, Normal Bowel Sounds - Extremities Exam Extremities Exam: Normal Capillary Refill - Neurological Exam Neurological Exam: Alert, Awake, Oriented x3 - Psychiatric Exam Psychiatric exam: Normal Affect, Normal Mood - Skin Skin Exam: Dry, Intact, Normal Color, Warm Assessment and Plan - Assessment and Plan (Free Text) Assessment: Breast Mass - Left 11/08-11/09: f/u Core needle biopsy results (pending). f/u Dr. Acosta (Pulm) regarding recs for lung nodule, r/o mets. -CT chest w/o contrast - 5.2 x 4 x 4.3 cm incompletely imaged left breast mass , left axillary adenopathy, pulmonary nodules and bone lesions. Findings are suspicious for malignancy and metastatic disease. Biopsy and PET CT advised -Consult Surgery, Dr. Trinidad, f/u recs -Plan for core needle bx at bedside today -Morphine Sulfate (Morphine) 2 mg IVP Q6 PRN, pain -Consult Pulm, Dr. Acosta, f/u recs (lung nodule, r/o mets) -Consult HemeOnc, Dr. Kenia Holt, f/u recs (breast mass) Anemia 11/10: Hgb 9.9, added Vitamin C for iron supplementation. PRBC transfusion interrupted due to developing fever. Currently on Solumedrol 40mg Q8h, refusing as per nursing notes. 11/09: Hg 8.5, Fe 11L, TIBC 325, %SAT 3L, Ferritin 36. -> Ferrlecit 125mg IVPB qd (5 doses total). Patient to receive 1u PRBC today. 11/08: Hgb 7.1 -> transfuse 1u PRBC today. - Hgb 7.7, mcv 56.3 - Hgb 7.1 on admission -> transfused 1u PRBC - type and screen - UA with trace leuk esterase, negative nitrate, +squamous epith cells, likely contaminant. Patient asymptomatic. Constipation - Resolving - Colace 100mg PO BID - Lactulose 20mg PO HS Prophylaxis - regular diet - pepcid 20mg po qd - Heparin 5k u SC Q12 Disposition: Will likely discharge tomorrow to followup in office if biopsy study has not resulted
[2016-11-10] MEDS ORDERED: Potassium Chloride 20 mEq ER Tab PO ONE ×2 (09:30→13:09)
[2016-11-10] MEDS: Ferric Sodium Gluconat Complex 62.5 mg/5 ml Vial IVPB SCH (10:24)
--- NOTE | 2016-11-10 13:36 | CP.PCM.CON ---
History of Present Illness - History of Present Illness History of Present Illness: 50 year old bed bound female with a history of rheumatoid arthritis admitted with breast mass s/p biopsy. The patient reports to rapidly enlarging breast mass in the last 2 months. She initially noticed this mass 1 year ago but was not concerned about it until it started to grow. She notes to oozing of blood from the mass. She also has had a diminished appetite with weightloss. CT chest revealed axillary, lung, bone lesions. Past medical history: rheumatoid arthritis Past surgical history: Family history: Denies hematologic and oncologic problems Social history: Denies tobacco, alcohol,and illicit drug use. Allergies: Several, see allergy list. Review of systems: All remaining review of systems including HEENT, cardiovascular, respiratory, gastrointestinal, genitourinary, musculoskeletal, dermatologic, neurologic, and psychiatric are negative unless mentioned in the HPI. Past Patient History - Infectious Disease Hx of Infectious Diseases: None - Past Medical History & Family History Past Medical History?: Yes - Past Social History Smoking Status: Never Smoked - CARDIAC Hx Cardiac Disorders: No - PULMONARY Hx Respiratory Disorders: No - NEUROLOGICAL Hx Neurological Disorder: No - HEENT Hx HEENT Problems: No - RENAL Hx Chronic Kidney Disease: No - ENDOCRINE/METABOLIC Hx Endocrine Disorders: No - HEMATOLOGICAL/ONCOLOGICAL Hx Anemia: Yes Hx Blood Transfusions: Yes (2016) Hx Blood Transfusion Reaction: Yes (elevated temp) - INTEGUMENTARY Hx Dermatological Problems: Yes Other/Comment: left upper chest mass - MUSCULOSKELETAL/RHEUMATOLOGICAL Hx Musculoskeletal Disorders: Yes Hx Arthritis: Yes (severe athritis) Hx Falls: No Hx Rheumatoid Arthritis: Yes - GASTROINTESTINAL Hx Gastrointestinal Disorders: No - GENITOURINARY/GYNECOLOGICAL Other/Comment: menopausal - PSYCHIATRIC Hx Anxiety: Yes Hx Substance Use: No - SURGICAL HISTORY Hx Surgeries: Yes Hx Section: Yes (x2) Other/Comment: d&c - ANESTHESIA Hx Anesthesia: Yes Hx Anesthesia Reactions: No Meds Allergies/Adverse Reactions: Allergies Allergy/AdvReac Type Severity Reaction Status Date / Time ciprofloxacin [From Cipro] Allergy SWELLING Verified 11/09/16 18:41 magnesium Allergy CONGESTION Verified 11/09/16 18:41 Penicillins Allergy SWELLING Verified 11/09/16 18:41 diphenhydramine AdvReac numbness Verified 11/09/16 18:41 [From Benadryl] on tongue and throath - Medications Medications: Current Medications Ascorbic Acid (Vitamin C 500 Mg Tab) 500 mg PO DAILY [facility] Last Admin: 11/10/16 10:03 Dose: Not Given Famotidine (Pepcid) 20 mg PO DAILY [facility] Last Admin: 11/10/16 10:02 Dose: 20 mg Ferric Sodium Gluconate Complex (Ferrlecit) 125 mg IVPB DAILY [facility] Stop: 11/14/16 10:01 Last Admin: 11/10/16 10:24 Dose: 125 mg Heparin Sodium (Porcine) (Heparin) 5,000 units SC Q12 [facility] Last Admin: 11/10/16 10:01 Dose: Not Given Lactulose (Enulose) 20 gm PO HS [facility] Last Admin: 11/09/16 21:37 Dose: Not Given Methylprednisolone (Solu-Medrol) 40 mg IVP Q8 [facility] Last Admin: 11/10/16 06:42 Dose: Not Given Morphine Sulfate (Morphine) 2 mg IVP Q6 PRN PRN Reason: pain Physical Exam - Head Exam Head Exam: ATRAUMATIC - Eye Exam Eye Exam: Normal appearance - ENT Exam ENT Exam: Mucous Membranes Dry - Respiratory Exam Respiratory Exam: NORMAL BREATHING PATTERN - Cardiovascular Exam Cardiovascular Exam: +S1, +S2 - GI/Abdominal Exam GI & Abdominal Exam: Normal Bowel Sounds - Neurological Exam Neurological exam: Oriented x3 - Psychiatric Exam Psychiatric exam: Normal Affect, Normal Mood - Skin Skin Exam: Warm Results - Vital Signs Recent Vital Signs: Last Vital Signs Temp 98.2 F 11/10/16 08:00 Pulse 82 11/10/16 08:00 Resp 20 11/10/16 08:00 BP 100/60 11/10/16 08:00 Pulse Ox 100 11/10/16 08:00 - Labs Result Diagrams: 11/10/16 07:39 11/10/16 07:39 Labs: Laboratory Results - last 24 hr 11/10/16 11/10/16 07:39 07:39 WBC 6.2 RBC 4.86 Hgb 9.9 L Hct 30.5 L MCV 62.7 L D MCH 20.3 L MCHC 32.4 L RDW 32.2 H Plt Count 388 MPV 8.8 Neut % (Auto) 72.1 Lymph % (Auto) 17.3 L [place] % (Auto) 5.8 Eos % (Auto) 4.2 H Baso % (Auto) 0.6 Neut # 4.5 Lymph # 1.1 [place] # 0.4 Eos # 0.3 Baso # 0.0 Differential Comment Sodium 140 Potassium 3.5 L Chloride 107 Carbon Dioxide 24 Anion Gap 12 BUN 12 Creatinine 0.4 L Est GFR ( Amer) > 60 Est GFR (Non-Af Amer) > 60 Random Glucose 88 Calcium 8.4 L Phosphorus 3.6 Magnesium 2.0 Total Bilirubin 0.6 AST 18 ALT 10 Alkaline Phosphatase 69 Total Protein 7.3 Albumin 2.8 L Globulin 4.5 H Albumin/Globulin Ratio 0.6 L Assessment & Plan (1) Breast mass, left Assessment and Plan: concerning for breast cancer with axillary LN, lung, bone metastasis s/p biopsy f/u pathology Status: Acute (2) Anemia Assessment and Plan: work up consistent with iron deficiency anemia ? related to chronic breast mass blood loss agree with IV iron transfusion support PRN Thank you for this interesting consult. Status: Acute
--- NOTE | 2016-11-10 15:51 | CP.PCM.PN ---
Subjective - Date & Time of Evaluation Date of Evaluation: 11/10/16 Time of Evaluation: 08:00 - Subjective Subjective: clinically same Objective - Vital Signs/Intake and Output Vital Signs (last 24 hours): Temp Pulse Resp BP Pulse Ox 98.2 F 82 20 100/60 100 11/10/16 08:00 11/10/16 08:00 11/10/16 08:00 11/10/16 08:00 11/10/16 08:00 Intake and Output: 11/10/16 11/10/16 06:59 18:59 Intake Total 440 340 Balance 440 340 - Medications Medications: Current Medications Ascorbic Acid (Vitamin C 500 Mg Tab) 500 mg PO DAILY [facility] Last Admin: 11/10/16 10:03 Dose: Not Given Famotidine (Pepcid) 20 mg PO DAILY [facility] Last Admin: 11/10/16 10:02 Dose: 20 mg Ferric Sodium Gluconate Complex (Ferrlecit) 125 mg IVPB DAILY [facility] Stop: 11/14/16 10:01 Last Admin: 11/10/16 10:24 Dose: 125 mg Heparin Sodium (Porcine) (Heparin) 5,000 units SC Q12 [facility] Last Admin: 11/10/16 10:01 Dose: Not Given Lactulose (Enulose) 20 gm PO HS [facility] Last Admin: 11/09/16 21:37 Dose: Not Given Methylprednisolone (Solu-Medrol) 40 mg IVP Q8 [facility] Last Admin: 11/10/16 14:37 Dose: Not Given Morphine Sulfate (Morphine) 2 mg IVP Q6 PRN PRN Reason: pain - Labs Labs: 11/10/16 07:39 11/10/16 07:39 PT 12.7 SECONDS (9.7-12.2) H 11/06/16 19:59 INR 1.1 11/06/16 19:59 APTT 29 SECONDS (21-34) D 11/09/16 06:23 - Constitutional Appears: Well - Head Exam Head Exam: ATRAUMATIC, NORMAL INSPECTION, NORMOCEPHALIC - Eye Exam Eye Exam: EOMI, Normal appearance, PERRL Pupil Exam: NORMAL ACCOMODATION, PERRL - ENT Exam ENT Exam: Mucous Membranes Moist, Normal Exam - Neck Exam Neck Exam: Full ROM, Normal Inspection. absent: Lymphadenopathy - Respiratory Exam Respiratory Exam: Decreased Breath Sounds - Cardiovascular Exam Cardiovascular Exam: REGULAR RHYTHM, +S1, +S2 - GI/Abdominal Exam GI & Abdominal Exam: Soft, Diminished Bowel Sounds - Rectal Exam Rectal Exam: Deferred
--- NOTE | 2016-11-10 16:50 | CP.PCM.PN ---
Subjective - Date & Time of Evaluation Date of Evaluation: 11/10/16 Time of Evaluation: 16:47 - Subjective Subjective: Pathology report reviewed. Patient has poorly differentiated infiltrating carcinoma of breast, ER/AK- and HER2+. Will need chemotherapy with targeted Herceptin; No role for surgery at this time unless for palliation of tumor ulceration if she does not respond to medical treatment. Objective - Vital Signs/Intake and Output Vital Signs (last 24 hours): Temp Pulse Resp BP Pulse Ox 98.3 F 86 20 119/77 99 11/10/16 15:20 11/10/16 15:20 11/10/16 15:20 11/10/16 15:20 11/10/16 15:20 Intake and Output: 11/10/16 11/10/16 06:59 18:59 Intake Total 440 340 Balance 440 340 - Medications Medications: Current Medications Ascorbic Acid (Vitamin C 500 Mg Tab) 500 mg PO DAILY [facility] Last Admin: 11/10/16 10:03 Dose: Not Given Famotidine (Pepcid) 20 mg PO DAILY [facility] Last Admin: 11/10/16 10:02 Dose: 20 mg Ferric Sodium Gluconate Complex (Ferrlecit) 125 mg IVPB DAILY [facility] Stop: 11/14/16 10:01 Last Admin: 11/10/16 10:24 Dose: 125 mg Heparin Sodium (Porcine) (Heparin) 5,000 units SC Q12 [facility] Last Admin: 11/10/16 10:01 Dose: Not Given Lactulose (Enulose) 20 gm PO HS [facility] Last Admin: 11/09/16 21:37 Dose: Not Given Methylprednisolone (Solu-Medrol) 40 mg IVP Q8 [facility] Last Admin: 11/10/16 14:37 Dose: Not Given Morphine Sulfate (Morphine) 2 mg IVP Q6 PRN PRN Reason: pain - Labs Labs: 11/10/16 07:39 11/10/16 07:39 PT 12.7 SECONDS (9.7-12.2) H 11/06/16 19:59 INR 1.1 11/06/16 19:59 APTT 29 SECONDS (21-34) D 11/09/16 06:23
--- NOTE | 2016-11-10 17:34 | CP.PCM.PN ---
Objective - Vital Signs/Intake and Output Vital Signs (last 24 hours): Temp Pulse Resp BP Pulse Ox 98.3 F 86 20 119/77 99 11/10/16 15:20 11/10/16 15:20 11/10/16 15:20 11/10/16 15:20 11/10/16 15:20 Intake and Output: 11/10/16 11/10/16 06:59 18:59 Intake Total 440 340 Balance 440 340 - Medications Medications: Current Medications Ascorbic Acid (Vitamin C 500 Mg Tab) 500 mg PO DAILY [facility] Last Admin: 11/10/16 10:03 Dose: Not Given Famotidine (Pepcid) 20 mg PO DAILY [facility] Last Admin: 11/10/16 10:02 Dose: 20 mg Ferric Sodium Gluconate Complex (Ferrlecit) 125 mg IVPB DAILY [facility] Stop: 11/14/16 10:01 Last Admin: 11/10/16 10:24 Dose: 125 mg Heparin Sodium (Porcine) (Heparin) 5,000 units SC Q12 [facility] Last Admin: 11/10/16 10:01 Dose: Not Given Lactulose (Enulose) 20 gm PO HS [facility] Last Admin: 11/09/16 21:37 Dose: Not Given Methylprednisolone (Solu-Medrol) 40 mg IVP Q8 [facility] Last Admin: 11/10/16 14:37 Dose: Not Given Morphine Sulfate (Morphine) 2 mg IVP Q6 PRN PRN Reason: pain - Labs Labs: 11/10/16 07:39 11/10/16 07:39 PT 12.7 SECONDS (9.7-12.2) H 11/06/16 19:59 INR 1.1 11/06/16 19:59 APTT 29 SECONDS (21-34) D 11/09/16 06:23
--- NOTE | 2016-11-11 01:27 | CP.PCM.PN ---
Subjective - Date & Time of Evaluation Date of Evaluation: 11/10/16 Time of Evaluation: 19:00 - Subjective Subjective: No complaints. Objective - Vital Signs/Intake and Output Vital Signs (last 24 hours): Temp Pulse Resp BP Pulse Ox 98.5 F 80 20 110/71 98 11/10/16 23:19 11/10/16 23:19 11/10/16 23:19 11/10/16 23:19 11/10/16 23:19 Intake and Output: 11/10/16 11/11/16 18:59 06:59 Intake Total 340 300 Balance 340 300 - Medications Medications: Current Medications Ascorbic Acid (Vitamin C 500 Mg Tab) 500 mg PO DAILY [facility] Last Admin: 11/10/16 10:03 Dose: Not Given Famotidine (Pepcid) 20 mg PO DAILY [facility] Last Admin: 11/10/16 10:02 Dose: 20 mg Ferric Sodium Gluconate Complex (Ferrlecit) 125 mg IVPB DAILY [facility] Stop: 11/14/16 10:01 Last Admin: 11/10/16 10:24 Dose: 125 mg Heparin Sodium (Porcine) (Heparin) 5,000 units SC Q12 [facility] Last Admin: 11/10/16 21:48 Dose: Not Given Lactulose (Enulose) 20 gm PO HS [facility] Last Admin: 11/10/16 21:48 Dose: Not Given Methylprednisolone (Solu-Medrol) 40 mg IVP Q8 [facility] Last Admin: 11/10/16 21:48 Dose: Not Given Morphine Sulfate (Morphine) 2 mg IVP Q6 PRN PRN Reason: pain - Labs Labs: 11/10/16 07:39 11/10/16 07:39 PT 12.7 SECONDS (9.7-12.2) H 11/06/16 19:59 INR 1.1 11/06/16 19:59 APTT 29 SECONDS (21-34) D 11/09/16 06:23 - Head Exam Head Exam: ATRAUMATIC - Eye Exam Eye Exam: Normal appearance - ENT Exam ENT Exam: Mucous Membranes Dry - Respiratory Exam Respiratory Exam: NORMAL BREATHING PATTERN - Cardiovascular Exam Cardiovascular Exam: +S1, +S2 - GI/Abdominal Exam GI & Abdominal Exam: Normal Bowel Sounds Assessment and Plan (1) Breast mass, left Assessment & Plan: path reveals invasive breast cancer ER/MI negative; HER2 positive portacath placement if pt agreeable to chemotherapy Status: Acute (2) Anemia Status: Acute
[2016-11-11] MEDS: MethylPREDNISolone 40 mg Vial IVP SCH ×3 (05:28→22:00)
[2016-11-11 08:18] LABS: BASO # 0.1 K/uL (0.0-0.2); BASO % 0.8 % (0.0-2.0); EOS # 0.4 K/uL (0.0-0.7); EOS % 6.6 % (0.0-4.0); HEMATOCRIT 31.5 % (34.0-47.0); LYMPH # 1.3 K/uL (1.0-4.3); LYMPH % 19.4 % (20.0-40.0); MEAN CELL VOLUME 62.6 fL (81.0-99.0); MEAN CORPUSCULAR HEMOGLOBIN 19.7 pg (27.0-31.0); MEAN CORPUSCULAR HGB CONC 31.4 g/dL (33.0-37.0); MEAN PLATELET VOLUME 8.6 fL (7.2-11.7); MONO # 0.4 K/uL (0.0-0.8); MONO % 5.9 % (0.0-10.0); RED CELL DISTRIBUTION WIDTH 32.6 % (11.5-14.5); WHITE BLOOD COUNT 6.5 K/uL (4.8-10.8)
[2016-11-11 08:35] LABS: CHLORIDE 108 mmol/L (98-107); POTASSIUM 3.7 mmol/L (3.6-5.2); SODIUM 139 mmol/L (132-148)
[2016-11-11 08:37] LABS: ALB/GLOB RATIO 0.6 (1.0-2.1); ALKALINE PHOSPHATASE 76 U/L (38-126); AST/SGOT 21 U/L (14-36); BILIRUBIN,TOTAL 0.5 mg/dL (0.2-1.3); CARBON DIOXIDE 25 mmol/L (22-30); GFR AFRICAN-AMERICAN > 60; TOTAL PROTEIN 7.4 g/dL (6.3-8.3)
[2016-11-11 08:38] LABS: ALT/SGPT 9 U/L (9-52); BLOOD UREA NITROGEN 11 mg/dL (7-17); CALCIUM 8.8 mg/dl (8.6-10.4); GLUCOSE,RANDOM 85 mg/dL (65-105); MAGNESIUM 2.1 mg/dL (1.6-2.3); PHOSPHOROUS 3.5 mg/dL (2.5-4.5)
--- NOTE | 2016-11-11 09:25 | CP.PCM.PN ---
Subjective - Date & Time of Evaluation Date of Evaluation: 11/11/16 Time of Evaluation: 09:25 - Subjective Subjective: Medicine Progress Note- Dr. Gisella Martinez's service: Patient seen and examined at bedside this morning. Patient is very weak, but was able to sleep through the night. She denies pain at this time. Patient is high dependent on all ADLs. She has been eating very poorly. Patient requesting dressing over left breast to be changed. No other complaints at this time. Objective - Vital Signs/Intake and Output Vital Signs (last 24 hours): Temp Pulse Resp BP Pulse Ox 98.2 F 88 20 108/69 98 11/11/16 08:00 11/11/16 08:00 11/11/16 08:00 11/11/16 08:00 11/11/16 08:00 Intake and Output: 11/11/16 11/11/16 06:59 18:59 Intake Total 540 Balance 540 - Medications Medications: Current Medications Ascorbic Acid (Vitamin C 500 Mg Tab) 500 mg PO DAILY [facility] Last Admin: 11/10/16 10:03 Dose: Not Given Famotidine (Pepcid) 20 mg PO DAILY [facility] Last Admin: 11/10/16 10:02 Dose: 20 mg Ferric Sodium Gluconate Complex (Ferrlecit) 125 mg IVPB DAILY [facility] Stop: 11/14/16 10:01 Last Admin: 11/10/16 10:24 Dose: 125 mg Heparin Sodium (Porcine) (Heparin) 5,000 units SC Q12 [facility] Last Admin: 11/10/16 21:48 Dose: Not Given Lactulose (Enulose) 20 gm PO HS [facility] Last Admin: 11/10/16 21:48 Dose: Not Given Methylprednisolone (Solu-Medrol) 40 mg IVP Q8 [facility] Last Admin: 11/11/16 05:28 Dose: Not Given Morphine Sulfate (Morphine) 2 mg IVP Q6 PRN PRN Reason: pain - Labs Labs: 11/11/16 08:04 11/11/16 08:04 PT 12.7 SECONDS (9.7-12.2) H 11/06/16 19:59 INR 1.1 11/06/16 19:59 APTT 29 SECONDS (21-34) D 11/09/16 06:23 - Constitutional Appears: No Acute Distress, Cachectic, Chronically Ill - Head Exam Head Exam: NORMAL INSPECTION, NORMOCEPHALIC - Eye Exam Eye Exam: EOMI, Normal appearance - ENT Exam ENT Exam: Mucous Membranes Dry - Neck Exam Neck Exam: Full ROM, Normal Inspection - Respiratory Exam Respiratory Exam: Clear to Ausculation Bilateral, NORMAL BREATHING PATTERN - Cardiovascular Exam Cardiovascular Exam: REGULAR RHYTHM, +S1, +S2 - GI/Abdominal Exam GI & Abdominal Exam: Soft. absent: Distended, Tenderness - Extremities Exam Extremities Exam: Full ROM, Normal Inspection. absent: Pedal Edema - Back Exam Back Exam: NORMAL INSPECTION - Neurological Exam Neurological Exam: Alert, Awake, Oriented x3 - Psychiatric Exam Psychiatric exam: Normal Affect, Normal Mood - Skin Skin Exam: Dry, Pallor, Warm Additional comments: +dressing over left breast. Assessment and Plan (1) Invasive ductal carcinoma of breast, stage 3 Assessment & Plan: Mas seen on chest CT .Biopsy report returned positive for Invasive Ductal Carcinoma of breast, Stage 3. Consult [facility], Dr. Kenia Holt- help appreciated As per Dr. Holt: ER/AZ negative; HER2 positive portacath placement if pt agreeable to chemotherapy Consult Surgery, Dr. Trinidad- help appreciated s/p bedside needle biopsy. As per Dr. Trinidad- Will need chemotherapy with targeted Herceptin; No role for surgery at this time unless for palliation of tumor ulceration if she does not respond to medical treatment. Dressings to be changed as per surgery team. Consult Pulm, Dr. Acosta for lung nodule, r/o mets- help appreciated f/u recommendations Continue Morphine Sulfate (Morphine) 2 mg IVP Q6 PRN, pain -CT chest w/o contrast - 5.2 x 4 x 4.3 cm incompletely imaged left breast mass , left axillary adenopathy, pulmonary nodules and bone lesions. Findings are suspicious for malignancy and metastatic disease. Status: Acute (2) Clinical decompensation Assessment & Plan: Patient is bed bound due to weakness secondary to advanced carcinoma of breast with possible metastasis to lung and anemia. Patient is fragile and highly dependent on others for ADLs. She is too weak to reposition herself. Patient will need hospital bed and wheelchair when stable for discharge. Follow up physical therapy evaluation. Status: Acute (3) Anemia Assessment & Plan: 11/11: Hgb: 9.9 this AM. Hemodynamically stable. 11/10: Hgb 9.9, added Vitamin C for iron supplementation. PRBC transfusion interrupted due to developing fever. Currently on Solumedrol 40mg Q8h, refusing as per nursing notes. 11/09: Hg 8.5, Fe 11L, TIBC 325, %SAT 3L, Ferritin 36. -> Ferrlecit 125mg IVPB qd (5 doses total). Patient to receive 1u PRBC today. 11/08: Hgb 7.1 -> transfuse 1u PRBC today. - Hgb 7.7, mcv 56.3 - Hgb 7.1 on admission -> transfused 1u PRBC - type and screen - UA with trace leuk esterase, negative nitrate, +squamous epith cells, likely contaminant. Patient asymptomatic. Status: Acute (4) Constipation Assessment & Plan: - Resolving - Colace 100mg PO BID - Lactulose 20mg PO HS Status: Acute (5) Prophylactic measure Assessment & Plan: - pepcid 20mg po qd - Heparin 5000 u SC Q12 Status: Acute - Assessment and Plan (Free Text) Assessment: All management as per Dr. Gisella Martinez.
[2016-11-11] MEDS: Ferric Sodium Gluconat Complex 62.5 mg/5 ml Vial IVPB SCH (10:50)
--- NOTE | 2016-11-11 10:54 | CP.PCM.PCO ---
Physician Communication Note - Physician Communication Note Physician Communication Note: dressing changed. OK change by nursing. Wet-2- dry 4x4 w/ tegaderm on top
--- NOTE | 2016-11-11 14:29 | CP.PCM.CON ---
History of Present Illness - History of Present Illness History of Present Illness: Palliative consult Requested by Gisella Martinez MD Reason: Goals of care discussion Patient is a 50 yo lady looking older than stated age, admitted from home with left breast mass. The mass begun as a small palpable nodule, which patient checked in Doctor's office and was advised to put on a worm compresse as per patient. Over the last few months , the size of nodule increased in size and begun draining serious discharge. Upon admission to the hospital Chest CT was significant for pulmonary nodules to [place] and RLL, left breast mass 5.2X4X4.3 cm and bone lesions. The Bx of left breast was significant for invasive left breast ductal Cancer, stage III. Patient was seen by Doctor Holt and decision onchemo Tx is pending by the patient. Family meeting today at [address] Jonathon to present patient and family with findings of Bx. PMH: severe OA with body image deformities, bed ridden X 5 years Soc. 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, daughter takes care of younger brother and most of house work Fam: Hx: patient denies knowledge of cancer in family, mother alive, has asthma , father alive has DM, 8 more siblings, all in [facility] Review of Systems - Constitutional Constitutional: Malaise, Weakness - EENT Eyes: absent: As Per HPI, Blind Spots, Blurred Vision, Change in Vision, Decreased Night Vision, Diplopia, Discharge, Dry Eye, Exophthalmos, Floaters, Irritation, Itchy Eyes, Loss of Peripheral Vision, Pain, Photophobia, Requires Corrective Lenses, Sees Flashes, Spots in Vision, Tunnel Vision, Other Visual Disturbances, Loss of Vision, Other Ears: absent: As Per HPI, Decreased Hearing, Ear Discharge, Ear Pain, Tinnitus, Abnormal Hearing, Disequilibrium, Dizziness, Other Nose/Mouth/Throat: absent: As Per HPI, Epistaxis, Nasal Congestion, Nasal Discharge, Nasal Obstruction, Nasal Trauma, Nose Pain, Post Nasal Drip, Sinus Pain, Sinus Pressure, Bleeding Gums, Change in Voice, Dental Pain, Dry Mouth, Dysphagia, Halitosis, Hoarsness, Lip Swelling, Mouth Lesions, Mouth Pain, Odynophagia, Sore Throat, Throat Swelling, Tongue Swelling, Facial Pain, Neck Pain, Neck Mass, Other - Breasts Breasts: Change in Shape, Mass, Nipple Discharge, Skin Changes, Swelling Additional comments: Left breast mass - Cardiovascular Cardiovascular: absent: As Per HPI, Acrocyanosis, Chest Pain, Chest Pain at Rest , Chest Pain with Activity, Claudication, Diaphoresis, Dyspnea, Dyspnea on Exertion, Edema, Irregular Heart Rhythm, Pain Radiating to Arm/Neck/Jaw, Leg Edema, Leg Ulcers, Lightheadedness, Orthopnea, Palpitations, Paroxysmal Nocturnal Dyspnea, Pedal Edema, Radiating Pain, Rapid Heart Rate, Slow Heart Rate, Syncope, Other - Respiratory Respiratory: absent: As Per HPI, Cough, Dyspnea, Hemoptysis, Dyspnea on Exertion , Wheezing, Snoring, Stridor, Pain on Inspiration, Chest Congestion, Excessive Mucous Production, Change in Mucous Color, Pain with Coughing, Other - Gastrointestinal Gastrointestinal: absent: As Per HPI, Abdominal Pain, Belching, Bloating, Change in Bowel Habits, Change in Stool Character, Coffee Ground Emesis, Constipation, Cramping, Diarrhea, Dyspepsia, Dysphagia, Early Satiety, Excessive Flatus, Fecal Incontinence, Heartburn, Hematemesis, Hematochezia, Loose Stools, Melena, Nausea, Odynophagia, Temesmus, Vomiting, Other - Genitourinary Genitourinary: absent: As Per HPI, Change in Urinary Stream, Difficulty Urinating, Dysuria, Flank Pain, Hematuria, Pyuria, Nocturia, Urinary Incontinence, Urinary Frequency, Urinary Hesitance, Urinary Urgency, Voiding Freq/Small Amts, Freq UTI, Hx Renal/Bladder Calculi, Hx /Renal Surgery, Bladder Distension, Other - Reproductive: Female Reproductive:Female: Post Menopausal - Menstruation Menstruation: Post Menopausal - Musculoskeletal Musculoskeletal: Arthralgias, Deformity, Joint Swelling, Limited Range of Motion , Loss of Height, Stiffness - Integumentary Integumentary: Lesions, Wounds - Neurological Neurological: Weakness - Psychiatric Psychiatric: Anxiety, Hopelessness - Endocrine Endocrine: absent: As Per HPI, Change in Body Appearance, Change in Libido, Cold Intolorance, Deepening of Voice, Excessive Sweating, Fatigue, Flushing, Heat Intolorance, Increase in Ring/Shoe/Hat Size, Palpitations, Polydipsia, Polyphagia, Polyuria, Other - Hematologic/Lymphatic Hematologic: absent: As Per HPI, Easy Bleeding, Easy Bruising, Lymphadenopathy, Other Past Patient History - Infectious Disease Hx of Infectious Diseases: None - Past Medical History & Family History Past Medical History?: Yes - Past Social History Smoking Status: Never Smoked - CARDIAC Hx Cardiac Disorders: No - PULMONARY Hx Respiratory Disorders: No - NEUROLOGICAL Hx Neurological Disorder: No - HEENT Hx HEENT Problems: No - RENAL Hx Chronic Kidney Disease: No - ENDOCRINE/METABOLIC Hx Endocrine Disorders: No - HEMATOLOGICAL/ONCOLOGICAL Hx Anemia: Yes Hx Blood Transfusions: Yes (2016) Hx Blood Transfusion Reaction: Yes (elevated temp) - INTEGUMENTARY Hx Dermatological Problems: Yes Other/Comment: left upper chest mass - MUSCULOSKELETAL/RHEUMATOLOGICAL Hx Musculoskeletal Disorders: Yes Hx Arthritis: Yes (severe athritis) Hx Falls: No Hx Rheumatoid Arthritis: Yes - GASTROINTESTINAL Hx Gastrointestinal Disorders: No - GENITOURINARY/GYNECOLOGICAL Other/Comment: menopausal - PSYCHIATRIC Hx Anxiety: Yes Hx Substance Use: No - SURGICAL HISTORY Hx Surgeries: Yes Hx Section: Yes (x2) Other/Comment: d&c - ANESTHESIA Hx Anesthesia: Yes Hx Anesthesia Reactions: No Meds Allergies/Adverse Reactions: Allergies Allergy/AdvReac Type Severity Reaction Status Date / Time ciprofloxacin [From Cipro] Allergy SWELLING Verified 11/09/16 18:41 magnesium Allergy CONGESTION Verified 11/09/16 18:41 Penicillins Allergy SWELLING Verified 11/09/16 18:41 diphenhydramine AdvReac numbness Verified 11/09/16 18:41 [From Benadryl] on tongue and throath - Medications Medications: Current Medications Ascorbic Acid (Vitamin C 500 Mg Tab) 500 mg PO DAILY [facility] Last Admin: 11/11/16 10:50 Dose: 500 mg Famotidine (Pepcid) 20 mg PO DAILY [facility] Last Admin: 11/11/16 10:50 Dose: 20 mg Ferric Sodium Gluconate Complex (Ferrlecit) 125 mg IVPB DAILY [facility] Stop: 11/14/16 10:01 Last Admin: 11/11/16 10:50 Dose: 125 mg Heparin Sodium (Porcine) (Heparin) 5,000 units SC Q12 [facility] Last Admin: 11/11/16 10:51 Dose: 5,000 units Lactulose (Enulose) 20 gm PO HS [facility] Last Admin: 11/10/16 21:48 Dose: Not Given Methylprednisolone (Solu-Medrol) 40 mg IVP Q8 [facility] Last Admin: 11/11/16 14:07 Dose: Not Given Morphine Sulfate (Morphine) 2 mg IVP Q6 PRN PRN Reason: pain Physical Exam - Constitutional Appears: Chronically Ill - Head Exam Head Exam: ATRAUMATIC, NORMAL INSPECTION, NORMOCEPHALIC - Eye Exam Eye Exam: EOMI, Normal appearance, PERRL Pupil Exam: NORMAL ACCOMODATION, PERRL - ENT Exam ENT Exam: Mucous Membranes Moist, Normal Exam - Neck Exam Neck exam: Positive for: Normal Inspection - Respiratory Exam Respiratory Exam: Clear to Auscultation Bilateral, NORMAL BREATHING PATTERN - Cardiovascular Exam Cardiovascular Exam: REGULAR RHYTHM, +S1, +S2 - GI/Abdominal Exam GI & Abdominal Exam: Normal Bowel Sounds, Soft - Rectal Exam Rectal Exam: Deferred - Extremities Exam Extremities exam: Positive for: joint swelling Additional comments: limited ROM, stifness, bed ridden - Back Exam Back exam: NORMAL INSPECTION - Neurological Exam Neurological exam: Alert, Oriented x3 - Psychiatric Exam Psychiatric exam: Normal Affect, Normal Mood - Skin Skin Exam: Normal Color Results - Vital Signs Recent Vital Signs: Last Vital Signs Temp 98.2 F 11/11/16 08:00 Pulse 88 11/11/16 08:00 Resp 20 11/11/16 08:00 BP 108/69 11/11/16 08:00 Pulse Ox 98 11/11/16 08:00 - Labs Result Diagrams: 11/11/16 08:04 11/11/16 08:04 Labs: Laboratory Results - last 24 hr 11/11/16 11/11/16 08:04 08:04 WBC 6.5 RBC 5.03 Hgb 9.9 L Hct 31.5 L MCV 62.6 L MCH 19.7 L MCHC 31.4 L RDW 32.6 H Plt Count 372 MPV 8.6 Neut % (Auto) 67.3 Lymph % (Auto) 19.4 L [place] % (Auto) 5.9 Eos % (Auto) 6.6 H Baso % (Auto) 0.8 Neut # 4.4 Lymph # 1.3 [place] # 0.4 Eos # 0.4 Baso # 0.1 Sodium 139 Potassium 3.7 Chloride 108 H Carbon Dioxide 25 Anion Gap 10 BUN 11 Creatinine 0.4 L Est GFR ( Amer) > 60 Est GFR (Non-Af Amer) > 60 Random Glucose 85 Calcium 8.8 Phosphorus 3.5 Magnesium 2.1 Total Bilirubin 0.5 AST 21 ALT 9 Alkaline Phosphatase 76 Total Protein 7.4 Albumin 2.9 L Globulin 4.5 H Albumin/Globulin Ratio 0.6 L Assessment & Plan - Assessment and Plan (Free Text) Plan: Palliative consult Code status Full Code, no advance directive on the chart, PPS 20% I reviewed medical records, all diagnostic studies, examined and interviewed patient in nt bed with her daughter at bed side. Patient is alert, oriented X 3, in no acute distress, looking chronically ill. There is severe joints deformity due to OA and patient is bed ridden requiring max assistance with ADLs. Patient denied any pain to left breast. States concern about the cancer diagnosis and is waiting for Doctor Holt to further discuss treatments option with the patient. patient is not awre of cancer stage and mets to bones and lungs. Patient aware of chemo tx as only option for her condition. her concern is that her existing anemia would get even worse onchemo. Further patient states feeling weak and eating very little at present and is afraid that chemo would further affect her appetite. I did not want to disclose any further information to patient before taking to Doctor Holt. After discussing the patient Doctor Holt said I could tell patient about her diagnosis and options of chemo vs Hospice care. Impression * This is newly diagnosed left breast cancer with mets to bones and lungs * Patient is already severely deformed by the OA * patient is partially aware of diagnosis but does not know details, she expecting to hear the worse * Patient is debiting about the chemo Tx; afraid it will make her feeling even weaker * Oncology suggests chemo vs Hospice Suggestion * Patient to chose between chemo and hospice after presented with diagnosis and her options * Patient will need a lot of emotional and spiritual support as she is already expecting to hear bad news * Doctor Holt will speak to patient and family later this evening I will update my notes once I speak to patient and family about her diagnosis and treatment options
--- NOTE | 2016-11-11 17:39 | CP.PCM.PN ---
Subjective - Date & Time of Evaluation Date of Evaluation: 11/11/16 Time of Evaluation: 08:00 - Subjective Subjective: clinically same Objective - Vital Signs/Intake and Output Vital Signs (last 24 hours): Temp Pulse Resp BP Pulse Ox 98.9 F 90 19 112/69 98 11/11/16 15:00 11/11/16 15:00 11/11/16 15:00 11/11/16 15:00 11/11/16 15:00 Intake and Output: 11/11/16 11/11/16 06:59 18:59 Intake Total 540 500 Balance 540 500 - Medications Medications: Current Medications Ascorbic Acid (Vitamin C 500 Mg Tab) 500 mg PO DAILY [facility] Last Admin: 11/11/16 10:50 Dose: 500 mg Famotidine (Pepcid) 20 mg PO DAILY [facility] Last Admin: 11/11/16 10:50 Dose: 20 mg Ferric Sodium Gluconate Complex (Ferrlecit) 125 mg IVPB DAILY [facility] Stop: 11/14/16 10:01 Last Admin: 11/11/16 10:50 Dose: 125 mg Heparin Sodium (Porcine) (Heparin) 5,000 units SC Q12 [facility] Last Admin: 11/11/16 10:51 Dose: 5,000 units Lactulose (Enulose) 20 gm PO HS [facility] Last Admin: 11/10/16 21:48 Dose: Not Given Methylprednisolone (Solu-Medrol) 40 mg IVP Q8 [facility] Last Admin: 11/11/16 14:07 Dose: Not Given Morphine Sulfate (Morphine) 2 mg IVP Q6 PRN PRN Reason: pain - Labs Labs: 11/11/16 08:04 11/11/16 08:04 PT 12.7 SECONDS (9.7-12.2) H 11/06/16 19:59 INR 1.1 11/06/16 19:59 APTT 29 SECONDS (21-34) D 11/09/16 06:23 - Constitutional Appears: Well - Head Exam Head Exam: ATRAUMATIC, NORMAL INSPECTION, NORMOCEPHALIC - Eye Exam Eye Exam: EOMI, Normal appearance, PERRL Pupil Exam: NORMAL ACCOMODATION, PERRL - ENT Exam ENT Exam: Mucous Membranes Moist, Normal Exam - Neck Exam Neck Exam: Full ROM, Normal Inspection. absent: Lymphadenopathy - Respiratory Exam Respiratory Exam: Decreased Breath Sounds - Cardiovascular Exam Cardiovascular Exam: REGULAR RHYTHM, +S1, +S2 - GI/Abdominal Exam GI & Abdominal Exam: Soft, Diminished Bowel Sounds - Rectal Exam Rectal Exam: Deferred
[2016-11-12 01:39] VITALS: RESP 20; O2SAT 97
--- NOTE | 2016-11-12 03:49 | CP.PCM.PN ---
Subjective - Date & Time of Evaluation Date of Evaluation: 11/11/16 Time of Evaluation: 19:30 - Subjective Subjective: No complaints. Discussed biopsy results, systemic treatment options and portacath insertion with pt and her family at length pt to think about options outpatient f/u Objective - Vital Signs/Intake and Output Vital Signs (last 24 hours): Temp Pulse Resp BP Pulse Ox 98.7 F 96 H 20 117/78 97 11/12/16 00:00 11/12/16 00:00 11/12/16 00:00 11/12/16 00:00 11/12/16 00:00 Intake and Output: 11/11/16 11/12/16 18:59 06:59 Intake Total 500 Balance 500 - Medications Medications: Current Medications Ascorbic Acid (Vitamin C 500 Mg Tab) 500 mg PO DAILY [facility] Last Admin: 11/11/16 10:50 Dose: 500 mg Famotidine (Pepcid) 20 mg PO DAILY [facility] Last Admin: 11/11/16 10:50 Dose: 20 mg Ferric Sodium Gluconate Complex (Ferrlecit) 125 mg IVPB DAILY [facility] Stop: 11/14/16 10:01 Last Admin: 11/11/16 10:50 Dose: 125 mg Lactulose (Enulose) 20 gm PO HS [facility] Last Admin: 11/11/16 22:44 Dose: Not Given Methylprednisolone (Solu-Medrol) 40 mg IVP Q8 [facility] Last Admin: 11/11/16 22:00 Dose: Not Given Morphine Sulfate (Morphine) 2 mg IVP Q6 PRN PRN Reason: pain - Labs Labs: 11/11/16 08:04 11/11/16 08:04 PT 12.7 SECONDS (9.7-12.2) H 11/06/16 19:59 INR 1.1 11/06/16 19:59 APTT 29 SECONDS (21-34) D 11/09/16 06:23 - Head Exam Head Exam: ATRAUMATIC - Eye Exam Eye Exam: Normal appearance - ENT Exam ENT Exam: Mucous Membranes Dry - Neck Exam Neck Exam: Normal Inspection - Cardiovascular Exam Cardiovascular Exam: +S1, +S2 - GI/Abdominal Exam GI & Abdominal Exam: Normal Bowel Sounds Assessment and Plan (1) Breast mass, left Status: Acute (2) Anemia Status: Acute
[2016-11-12] MEDS: MethylPREDNISolone 40 mg Vial IVP SCH (06:00)
[2016-11-12 07:29] LABS: BASO % 0.6 % (0.0-2.0); EOS # 0.4 K/uL (0.0-0.7); EOS % 6.1 % (0.0-4.0); HEMATOCRIT 29.9 % (34.0-47.0); LYMPH # 1.3 K/uL (1.0-4.3); LYMPH % 20.2 % (20.0-40.0); MEAN CELL VOLUME 62.9 fL (81.0-99.0); MEAN CORPUSCULAR HEMOGLOBIN 19.8 pg (27.0-31.0); MEAN CORPUSCULAR HGB CONC 31.4 g/dL (33.0-37.0); MEAN PLATELET VOLUME 8.7 fL (7.2-11.7); MONO # 0.4 K/uL (0.0-0.8); RED CELL DISTRIBUTION WIDTH 33.3 % (11.5-14.5); WHITE BLOOD COUNT 6.5 K/uL (4.8-10.8)
[2016-11-12 07:40] LABS: CHLORIDE 107 mmol/L (98-107); POTASSIUM 3.6 mmol/L (3.6-5.2); SODIUM 138 mmol/L (132-148)
[2016-11-12 07:42] VITALS: BP 96/62; PULSE 88; TEMP 98
[2016-11-12 07:42] LABS: ALB/GLOB RATIO 0.7 (1.0-2.1); ALKALINE PHOSPHATASE 79 U/L (38-126); AST/SGOT 21 U/L (14-36); BILIRUBIN,TOTAL 0.6 mg/dL (0.2-1.3); BLOOD UREA NITROGEN 11 mg/dL (7-17); CARBON DIOXIDE 24 mmol/L (22-30); GFR AFRICAN-AMERICAN > 60; TOTAL PROTEIN 7.3 g/dL (6.3-8.3)
[2016-11-12 07:43] LABS: ALT/SGPT 15 U/L (9-52); CALCIUM 8.7 mg/dl (8.6-10.4); GLUCOSE,RANDOM 88 mg/dL (65-105); PHOSPHOROUS 3.8 mg/dL (2.5-4.5)
[2016-11-12] MEDS: Ferric Sodium Gluconat Complex 62.5 mg/5 ml Vial IVPB SCH (10:07)
--- NOTE | 2016-11-12 10:09 | CP.PCM.PN ---
Subjective - Date & Time of Evaluation Date of Evaluation: 11/12/16 Time of Evaluation: 08:00 - Subjective Subjective: clinically same Objective - Vital Signs/Intake and Output Vital Signs (last 24 hours): Temp Pulse Resp BP Pulse Ox 98 F 88 20 96/62 L 97 11/12/16 07:39 11/12/16 07:39 11/12/16 07:39 11/12/16 07:39 11/12/16 07:39 - Medications Medications: Current Medications Ascorbic Acid (Vitamin C 500 Mg Tab) 500 mg PO DAILY [facility] Last Admin: 11/11/16 10:50 Dose: 500 mg Famotidine (Pepcid) 20 mg PO DAILY [facility] Last Admin: 11/11/16 10:50 Dose: 20 mg Ferric Sodium Gluconate Complex (Ferrlecit) 125 mg IVPB DAILY [facility] Stop: 11/14/16 10:01 Last Admin: 11/11/16 10:50 Dose: 125 mg Lactulose (Enulose) 20 gm PO HS [facility] Last Admin: 11/11/16 22:44 Dose: Not Given Methylprednisolone (Solu-Medrol) 40 mg IVP Q8 [facility] Last Admin: 11/12/16 06:00 Dose: Not Given Morphine Sulfate (Morphine) 2 mg IVP Q6 PRN PRN Reason: pain - Labs Labs: 11/12/16 07:15 11/12/16 07:11 PT 12.7 SECONDS (9.7-12.2) H 11/06/16 19:59 INR 1.1 11/06/16 19:59 APTT 29 SECONDS (21-34) D 11/09/16 06:23 - Constitutional Appears: Well - Head Exam Head Exam: ATRAUMATIC, NORMAL INSPECTION, NORMOCEPHALIC - Eye Exam Eye Exam: EOMI, Normal appearance, PERRL Pupil Exam: NORMAL ACCOMODATION, PERRL - ENT Exam ENT Exam: Mucous Membranes Moist, Normal Exam - Neck Exam Neck Exam: Full ROM, Normal Inspection. absent: Lymphadenopathy - Respiratory Exam Respiratory Exam: Decreased Breath Sounds - Cardiovascular Exam Cardiovascular Exam: REGULAR RHYTHM, +S1, +S2 - GI/Abdominal Exam GI & Abdominal Exam: Soft, Diminished Bowel Sounds - Rectal Exam Rectal Exam: Deferred
--- NOTE | 2016-11-12 10:30 | CP.PCM.PN ---
Objective - Vital Signs/Intake and Output Vital Signs (last 24 hours): Temp Pulse Resp BP Pulse Ox 98 F 88 20 96/62 L 97 11/12/16 07:39 11/12/16 07:39 11/12/16 07:39 11/12/16 07:39 11/12/16 07:39 - Medications Medications: Current Medications Ascorbic Acid (Vitamin C 500 Mg Tab) 500 mg PO DAILY [facility] Last Admin: 11/12/16 10:07 Dose: Not Given Famotidine (Pepcid) 20 mg PO DAILY [facility] Last Admin: 11/12/16 10:07 Dose: Not Given Ferric Sodium Gluconate Complex (Ferrlecit) 125 mg IVPB DAILY [facility] Stop: 11/14/16 10:01 Last Admin: 11/12/16 10:07 Dose: Not Given Lactulose (Enulose) 20 gm PO HS [facility] Last Admin: 11/11/16 22:44 Dose: Not Given Methylprednisolone (Solu-Medrol) 40 mg IVP Q8 [facility] Last Admin: 11/12/16 06:00 Dose: Not Given Morphine Sulfate (Morphine) 2 mg IVP Q6 PRN PRN Reason: pain - Labs Labs: 11/12/16 07:15 11/12/16 07:11 PT 12.7 SECONDS (9.7-12.2) H 11/06/16 19:59 INR 1.1 11/06/16 19:59 APTT 29 SECONDS (21-34) D 11/09/16 06:23
== END 2016-11-12 11:40 | disposition home or self-care (01) | DRG 584 ==
LOC: C.ER 18:39 → C.9E 21:29 → C.3T 22:30
PROVIDERS: ADMIT Internal Medicine Nephrology; ATTEND Internal Medicine Nephrology
PROC: 0HBU0ZX Excision of Left Breast, Open Approach, Diagnostic (ICD-10-PCS; principal; 2016-11-07)
DX: C50.812 Malignant neoplasm of overlapping sites of left female breast (principal); C78.01 Secondary malignant neoplasm of right lung; C79.51 Secondary malignant neoplasm of bone; C78.02 Secondary malignant neoplasm of left lung; K59.00 Constipation, unspecified; M06.9 Rheumatoid arthritis, unspecified; D50.9 Iron deficiency anemia, unspecified; Z74.01 Bed confinement status

== ENCOUNTER 2016-11-18 14:36 | Emergency (ER) | payer MEDICARE, OTHER ==
[2016-11-18 14:59] VITALS: RESP 18; O2SAT 100
--- NOTE | 2016-11-18 15:25 | C.PDOC ---
History Of Present Illness 50 YO FEMALE, HISTORY OF METASTATIC BREAST CANCER, PRESENTS TO ED STATUS POST LEFT BREAST BIOPSY C/O BLEEDING FROM BIOPSY SITE. PT STATES BLEEDING HAS BENE PERSISTENT. DENIES FEVER, CHILLS, VOMITING, DIARRHEA. PT STATES SHE HAS BEEN EATING AND DRINKING NORMALLY AT HOME. DENIES ANY OTHER COMPLAINTS AT THIS TIME. Time Seen by Provider: 11/18/16 14:57 Chief Complaint (Nursing): Abnormal Skin Integrity History Per: Patient History/Exam Limitations: no limitations Onset/Duration Of Symptoms: Persistent Current Symptoms Are (Timing): Still Present Location Of Injury: Left: Chest, Anterior: Chest Recent travel outside of the [place]: No Past Medical History Reviewed: Historical Data, Nursing Documentation, Vital Signs Vital Signs: Last Vital Signs Temp 98.2 F 11/18/16 14:54 Pulse 102 H 11/18/16 14:54 Resp 18 11/18/16 14:54 BP 99/68 L 11/18/16 14:54 Pulse Ox 100 11/18/16 17:01 - Medical History PMH: Anemia, Anxiety, Arthritis (severe athritis), Malignancy, Rheumatoid Arthritis Denies: Chronic Kidney Disease - [facility] Procedures EXCISION OF LEFT BREAST, OPEN APPROACH, DIAGNOSTIC (11/06/16) Family History: States: Unknown Family Hx - Social History Hx Tobacco Use: No Hx Alcohol Use: No Hx Substance Use: No - Immunization History Hx Tetanus Toxoid Vaccination: No Hx Influenza Vaccination: No Hx Pneumococcal Vaccination: No Review Of Systems Except As Marked, All Systems Reviewed And Found Negative. Constitutional: Negative for: Fever, Chills Cardiovascular: Negative for: Chest Pain, Palpitations Respiratory: Negative for: Cough, Shortness of Breath, Wheezing Gastrointestinal: Negative for: Nausea, Vomiting Skin: Positive for: Other (BLEEDING FROM LEFT BREAST BIOPSY SITE). Negative for : Rash Physical Exam - Physical Exam Appears: Non-toxic, No Acute Distress Skin: Warm, Dry Head: Atraumatic, Normacephalic Chest: Symmetrical, Other (FUNGATING LEFT BREAST MASS LEFT CHEST, NO ACTIVE BLEEDING, DRIED ON BLOOD AND SURGISEAL ON MASS) Cardiovascular: Rhythm Regular Respiratory: Normal Breath Sounds, No Rales, No Rhonchi, No Wheezing Gastrointestinal/Abdominal: Soft, No Tenderness, No Guarding, No Rebound Back: Normal Inspection Extremity: Normal ROM, Capillary Refill (< 2 SEC.) Neurological/Psych: Oriented x3, Normal Speech, Normal Cognition ED Course And Treatment - Laboratory Results Result Diagrams: 11/18/16 15:41 11/18/16 15:41 O2 Sat by Pulse Oximetry: 100 (RA) Pulse Ox Interpretation: Normal Progress - Re-Evaluation Re-evaluation Note: 11/18/16 17:00 D/W SURG RESIDENT WILL EVAL IN ER - Data Reviewed Data Reviewed: Lab, Old records - Continuity of Care Discussed pt. case with consultant rn/specialty: General Surgery Disposition Counseled Patient/Family Regarding: Studies Performed, Diagnosis, Need For Followup - Disposition Referrals: YOUR,PMD [Other] Disposition: HOME/ ROUTINE Disposition Time: 17:45 Condition: IMPROVED Instructions: Chronic Wound Care (ED) - Clinical Impression Clinical Impression: Bleeding from breast, Breast mass, left - Scribe Statement The provider has reviewed the documentation as recorded by the Scribe Provider Attestation: LISA JUDGE All medical record entries made by the Scribe were at my direction and personally dictated by me. I have reviewed the chart and agree that the record accurately reflects my personal performance of the history, physical exam, medical decision making, and the department course for this patient. I have also personally directed, reviewed, and agree with the discharge instructions and disposition.
[2016-11-18 15:46] LABS: BASO # 0.1 K/uL (0.0-0.2); BASO % 1.1 % (0.0-2.0); EOS # 0.3 K/uL (0.0-0.7); EOS % 4.5 % (0.0-4.0); HEMATOCRIT 30.1 % (34.0-47.0); LYMPH # 0.8 K/uL (1.0-4.3); LYMPH % 11.3 % (20.0-40.0); MEAN CELL VOLUME 64.4 fL (81.0-99.0); MEAN CORPUSCULAR HEMOGLOBIN 19.5 pg (27.0-31.0); MEAN CORPUSCULAR HGB CONC 30.2 g/dL (33.0-37.0); MEAN PLATELET VOLUME 8.9 fL (7.2-11.7); MONO # 0.4 K/uL (0.0-0.8); MONO % 4.9 % (0.0-10.0); RED CELL DISTRIBUTION WIDTH 33.9 % (11.5-14.5); WHITE BLOOD COUNT 7.2 K/uL (4.8-10.8)
[2016-11-18 15:57] LABS: CHLORIDE 101 mmol/L (98-107); SODIUM 134 mmol/L (132-148)
[2016-11-18 16:00] LABS: CARBON DIOXIDE 24 mmol/L (22-30); GFR AFRICAN-AMERICAN > 60
[2016-11-18 16:01] LABS: BLOOD UREA NITROGEN 18 mg/dL (7-17); CALCIUM 8.1 mg/dl (8.6-10.4); GLUCOSE,RANDOM 115 mg/dL (65-105)
[2016-11-18 16:04] LABS: POTASSIUM 4.3 mmol/L (3.6-5.2)
[2016-11-18] MEDS ORDERED: Absorbable Gelatin Sponge Size 12-7 ONE (17:16)
[2016-11-18 19:13] VITALS: BP 113/77; PULSE 86; TEMP 98.5
== END 2016-11-18 19:05 | disposition home or self-care (01) ==
LOC: C.ER 14:36
DX: N63 Unspecified lump in breast (principal); N64.89 Other specified disorders of breast

== ENCOUNTER 2016-12-18 17:17 | Inpatient (IN) | payer MEDICARE, OTHER ==
--- NOTE | 2016-12-18 17:39 | C.PDOC ---
History Of Present Illness 50 year old female presents to the emergency department with complaints of drainage of a tumor on the left breast beginning 30 minutes prior to arrival. Patient denies fever, trauma, or any other complaints at this time. Time Seen by Provider: 12/18/16 17:27 Chief Complaint (Nursing): Abnormal Skin Integrity History Per: Patient History/Exam Limitations: no limitations Onset/Duration Of Symptoms: Mins (drainage beginning just prior to arrival ), Persistent (left breast tumor present for over one year) Current Symptoms Are (Timing): Still Present Quality Of Symptoms: Draining Recent travel outside of the [place]: No Past Medical History Reviewed: Historical Data, Nursing Documentation, Vital Signs Vital Signs: Last Vital Signs Temp 98.6 F 12/23/16 16:00 Pulse 91 H 12/23/16 16:00 Resp 20 12/23/16 16:00 BP 112/72 12/23/16 16:00 Pulse Ox 99 12/23/16 16:00 - Medical History PMH: Anemia, Anxiety, Arthritis (severe athritis), Malignancy, Rheumatoid Arthritis - [facility] Procedures EXCISION OF LEFT BREAST, OPEN APPROACH, DIAGNOSTIC (11/06/16) Family History: States: Unknown Family Hx - Social History Hx Tobacco Use: No Hx Alcohol Use: No Hx Substance Use: No - Immunization History Hx Tetanus Toxoid Vaccination: No Hx Influenza Vaccination: No Hx Pneumococcal Vaccination: No Review Of Systems Except As Marked, All Systems Reviewed And Found Negative. Constitutional: Negative for: Fever, Chills Cardiovascular: Negative for: Chest Pain, Palpitations Respiratory: Negative for: Cough, Shortness of Breath Gastrointestinal: Negative for: Nausea, Vomiting Skin: Positive for: Other (Tumor in the left breast present for over one year ) Physical Exam - Physical Exam Appears: Non-toxic, No Acute Distress Skin: Warm, Dry Head: Atraumatic Eye(s): bilateral: Normal Inspection, PERRL, EOMI Ear(s): Bilateral: Normal Oral Mucosa: Moist Neck: Supple Chest: Symmetrical, Other (Large fungating mass in the left lateral breast with foul order and purulent discharge. No active bleeding. ) Cardiovascular: Rhythm Regular Respiratory: Normal Breath Sounds, No Rhonchi, No Wheezing Gastrointestinal/Abdominal: Soft, No Tenderness, No Distention, No Guarding, No Rebound Extremity: Normal ROM, No Tenderness, No Calf Tenderness, Capillary Refill ( good capillary refill, less than two seconds ), No Swelling Neurological/Psych: Oriented x3, Normal Speech, Normal Cognition, Normal Cranial Nerves, Normal Motor, Normal Sensation ED Course And Treatment - Laboratory Results Result Diagrams: 12/23/16 06:44 12/23/16 06:44 O2 Sat by Pulse Oximetry: 100 Disposition - Disposition Disposition: HOSPITALIZED Disposition Time: 18:06 Condition: STABLE - Clinical Impression Clinical Impression: Breast mass, left, Bleeding from breast, Invasive ductal carcinoma of breast, stage 3 - Scribe Statement The provider has reviewed the documentation as recorded by the Leslyibravindra Alston All medical record entries made by the Grant were at my direction and personally dictated by me. I have reviewed the chart and agree that the record accurately reflects my personal performance of the history, physical exam, medical decision making, and the department course for this patient. I have also personally directed, reviewed, and agree with the discharge instructions and disposition.
[2016-12-18 18:16] LABS: BASO # 0.1 K/uL (0.0-0.2); BASO % 0.8 % (0.0-2.0); EOS # 0.3 K/uL (0.0-0.7); EOS % 3.4 % (0.0-4.0); HEMOGLOBIN 9.3 g/dL (11.0-16.0); LYMPH # 1.4 K/uL (1.0-4.3); MEAN CELL VOLUME 68.2 fL (81.0-99.0); MEAN CORPUSCULAR HEMOGLOBIN 21.8 pg (27.0-31.0); MEAN CORPUSCULAR HGB CONC 31.9 g/dL (33.0-37.0); MEAN PLATELET VOLUME 8.5 fL (7.2-11.7); MONO # 0.4 K/uL (0.0-0.8); MONO % 4.9 % (0.0-10.0); NEUT # 6.1 K/uL (1.8-7.0); NEUT % 73.9 % (50.0-75.0); RBC 4.27 Mil/uL (3.80-5.20); RED CELL DISTRIBUTION WIDTH 31.7 % (11.5-14.5); WHITE BLOOD COUNT 8.3 K/uL (4.8-10.8)
[2016-12-18 18:25] LABS: ALBUMIN 3.3 g/dL (3.5-5.0)
[2016-12-18 18:28] LABS: ALB/GLOB RATIO 0.7 (1.0-2.1); AST/SGOT 28 U/L (14-36); BLOOD UREA NITROGEN 15 mg/dL (7-17); GFR AFRICAN-AMERICAN > 60; GFR NON-AFRICAN AMERICAN > 60
[2016-12-18 18:29] LABS: ALT/SGPT 23 U/L (9-52); CALCIUM 8.5 mg/dl (8.6-10.4)
[2016-12-18] MEDS ORDERED: HYDROmorphone 0.5 mg/0.5 ml ISec IVP PRN (20:10)
--- NOTE | 2016-12-18 21:05 | CP.PCM.CON ---
History of Present Illness - History of Present Illness History of Present Illness: 50F w/ PMHx of rheumatoid arthritis, anxiety, vertigo, breast CA, presented to the ED w/ complaints of bloody drainage from tumor located on the left breast along left upper and left lower breast quadrants. At time of examination patient has multiple vaseline gauze dressings and 4x4's which appeared to be stuck on tumor. Patient admits to not having change the dressings on the tumor since last Monday. Patient reported she was scared of removing the dressings in fear that the mass may bleed. Today she noticed blood seeping through the dressings on breast and decided to come into ED. Patient also complains of malodor coming from site. At times of examination patient appeared anxious. Old dressings were soaked with normal saline irrigation and slowly peeled away. No active bleeding was encountered. Patient has large fungating mass which according to son who was at bedside, has grown in size. Site was irrigated and clean moist sterile dressings were applied to the area. Patient denies f/c, chest pain, SOB, abdominal pain. PMHx: as stated above Allergies: Cipro, ibuprofren, Penicillins, Benadryl Review of Systems - Review of Systems Review of Systems: 12 pt ROS carried out, unremarkable, except as stated in HPI Past Patient History - Infectious Disease Hx of Infectious Diseases: None - Past Medical History & Family History Past Medical History?: Yes - Past Social History Smoking Status: Never Smoked - CARDIAC Hx Cardiac Disorders: No - PULMONARY Hx Respiratory Disorders: No - NEUROLOGICAL Hx Neurological Disorder: No - HEENT Hx HEENT Problems: No - RENAL Hx Chronic Kidney Disease: No - ENDOCRINE/METABOLIC Hx Endocrine Disorders: No - HEMATOLOGICAL/ONCOLOGICAL Hx Anemia: Yes - INTEGUMENTARY Hx Dermatological Problems: Yes Other/Comment: left upper chest mass - MUSCULOSKELETAL/RHEUMATOLOGICAL Hx Arthritis: Yes (severe athritis) Hx Rheumatoid Arthritis: Yes - GASTROINTESTINAL Hx Gastrointestinal Disorders: No - GENITOURINARY/GYNECOLOGICAL Other/Comment: menopausal - PSYCHIATRIC Hx Anxiety: Yes Hx Substance Use: No - SURGICAL HISTORY Hx Surgeries: Yes Hx Section: Yes (x2) Other/Comment: d&c - ANESTHESIA Hx Anesthesia: Yes Hx Anesthesia Reactions: No Meds Allergies/Adverse Reactions: Allergies Allergy/AdvReac Type Severity Reaction Status Date / Time ciprofloxacin [From Cipro] Allergy SWELLING Verified 11/09/16 18:41 ibuprofen Allergy Verified 12/18/16 17:32 magnesium Allergy CONGESTION Verified 11/09/16 18:41 Penicillins Allergy SWELLING Verified 11/09/16 18:41 diphenhydramine AdvReac numbness Verified 11/09/16 18:41 [From Benadryl] on tongue and throath - Medications Medications: Current Medications Hydromorphone HCl (Dilaudid) 0.5 mg IVP Q8H PRN PRN Reason: pain Clindamycin Phosphate 300 mg/ (Dextrose) 52 mls @ 100 mls/hr IVPB Q6H [facility] Last Admin: 12/18/16 18:38 Dose: 100 mls/hr Pantoprazole Sodium (Protonix Inj) 40 mg IVP DAILY [facility] Physical Exam - Constitutional Appears: Cachectic, Chronically Ill - Head Exam Head Exam: NORMOCEPHALIC - Eye Exam Eye Exam: Normal appearance - ENT Exam ENT Exam: Mucous Membranes Moist - Respiratory Exam Respiratory Exam: NORMAL BREATHING PATTERN - Cardiovascular Exam Cardiovascular Exam: +S1, +S2 - GI/Abdominal Exam GI & Abdominal Exam: Soft - Extremities Exam Extremities exam: Negative for: pedal edema - Neurological Exam Neurological exam: Alert, Oriented x3 - Skin Additional comments: large fungating mass along 3-5 o'clock region of left breast w/ malodor emanating from site No palpable masses felt on opposing breast Patient lacks upper extremity mobility 2/2 RA Results - Vital Signs Recent Vital Signs: Last Vital Signs Temp 99.3 F 12/18/16 17:29 Pulse 123 H 12/18/16 18:39 Resp 16 12/18/16 18:39 BP 136/66 12/18/16 18:39 Pulse Ox 100 12/18/16 18:41 - Labs Result Diagrams: 12/18/16 18:10 12/18/16 18:10 Labs: Laboratory Results - last 24 hr 12/18/16 12/18/16 18:10 18:10 WBC 8.3 RBC 4.27 Hgb 9.3 L Hct 29.2 L MCV 68.2 L D MCH 21.8 L MCHC 31.9 L RDW 31.7 H Plt Count 351 MPV 8.5 Neut % (Auto) 73.9 Lymph % (Auto) 17.0 L [place] % (Auto) 4.9 Eos % (Auto) 3.4 Baso % (Auto) 0.8 Neut # 6.1 Lymph # 1.4 [place] # 0.4 Eos # 0.3 Baso # 0.1 Sodium 138 Potassium 4.6 Chloride 99 Carbon Dioxide 25 Anion Gap 18 BUN 15 Creatinine 0.4 L Est GFR ( Amer) > 60 Est GFR (Non-Af Amer) > 60 Random Glucose 118 H Calcium 8.5 L Total Bilirubin 0.5 AST 28 ALT 23 Alkaline Phosphatase 115 Total Protein 7.9 Albumin 3.3 L Globulin 4.6 H Albumin/Globulin Ratio 0.7 L Assessment & Plan - Assessment and Plan (Free Text) Assessment: 50F w/ large left fungating breast tumor found to be invasive ductal CA.Her-2 dave + -Abx -Sterile dressing changes -Monitor site for bleeding -F/u heme onc recs -Further recs per Dr. Godinez
[2016-12-19 00:52] VITALS: RESP 20
--- NOTE | 2016-12-19 15:58 | CP.PCM.PN ---
Subjective - Date & Time of Evaluation Date of Evaluation: 12/19/16 Time of Evaluation: 15:49 - Subjective Subjective: Surgery: Dr. Trinidad Patient states the mass is no longer bleeding. She reports dressing being changed last night. She denies any new complaints. She states that she does not want any further surgeries for mass because it will only make it bleed. Objective - Vital Signs/Intake and Output Vital Signs (last 24 hours): Temp Pulse Resp BP Pulse Ox 99.1 F 97 H 20 110/72 99 12/19/16 15:44 12/19/16 15:44 12/19/16 15:44 12/19/16 15:44 12/19/16 15:44 Intake and Output: 12/19/16 12/19/16 06:59 18:59 Intake Total 100 100 Balance 100 100 - Medications Medications: Current Medications Hydromorphone HCl (Dilaudid) 0.5 mg IVP Q8H PRN PRN Reason: pain Clindamycin Phosphate 300 mg/ (Dextrose) 52 mls @ 100 mls/hr IVPB Q6H [facility] Last Admin: 12/19/16 12:03 Dose: 100 mls/hr Pantoprazole Sodium (Protonix Inj) 40 mg IVP DAILY [facility] Last Admin: 12/19/16 09:48 Dose: 40 mg Pneumococcal Polyvalent Vaccine (Pneumovax 23 Vaccine) 0.5 ml IM .ONCE ONE Stop: 12/20/16 10:01 - Labs Labs: 12/18/16 18:10 12/18/16 18:10 - Constitutional Appears: Cachectic, Chronically Ill - Head Exam Head Exam: ATRAUMATIC, NORMOCEPHALIC - Eye Exam Eye Exam: EOMI - ENT Exam ENT Exam: Mucous Membranes Dry - Respiratory Exam Respiratory Exam: NORMAL BREATHING PATTERN. absent: Respiratory Distress - Cardiovascular Exam Cardiovascular Exam: REGULAR RHYTHM. absent: Tachycardia - Skin Additional comments: large fungating breast mass in left axilla, tissue appears friable. no active bleeding noted. Dressing is clean and dry Assessment and Plan - Assessment and Plan (Free Text) Assessment: 50 y/o female w/ left axilla breast mass, biopsy proven breast invasive CA, HER2 + Plan: -keep mass covered with dressing -tissue friable so irrigate w/ saline prior to dressing changes to prevent bleeding -biopsy performed 1 month ago -further recs per Dr. Trinidad -rec heme/onc evalution -no acute surgical intervention at this time -d/w Dr. Trinidad [facility] PGY3
--- NOTE | 2016-12-19 18:11 | CP.PCM.HP ---
Past Patient History - Infectious Disease Hx of Infectious Diseases: None - Past Medical History & Family History Past Medical History?: Yes - Past Social History Smoking Status: Never Smoked - CARDIAC Hx Cardiac Disorders: No - PULMONARY Hx Respiratory Disorders: No - NEUROLOGICAL Hx Neurological Disorder: No - HEENT Hx HEENT Problems: No - RENAL Hx Chronic Kidney Disease: No - ENDOCRINE/METABOLIC Hx Endocrine Disorders: No - HEMATOLOGICAL/ONCOLOGICAL Hx Anemia: Yes - INTEGUMENTARY Hx Dermatological Problems: Yes Other/Comment: left upper chest mass - MUSCULOSKELETAL/RHEUMATOLOGICAL Hx Arthritis: Yes (severe athritis) Hx Rheumatoid Arthritis: Yes - GASTROINTESTINAL Hx Gastrointestinal Disorders: No - GENITOURINARY/GYNECOLOGICAL Other/Comment: menopausal - PSYCHIATRIC Hx Anxiety: Yes Hx Substance Use: No - SURGICAL HISTORY Hx Surgeries: Yes Hx Section: Yes (x2) Other/Comment: d&c - ANESTHESIA Hx Anesthesia: Yes Hx Anesthesia Reactions: No Meds Allergies/Adverse Reactions: Allergies Allergy/AdvReac Type Severity Reaction Status Date / Time ciprofloxacin [From Cipro] Allergy SWELLING Verified 11/09/16 18:41 ibuprofen Allergy Verified 12/18/16 17:32 magnesium Allergy CONGESTION Verified 11/09/16 18:41 Penicillins Allergy SWELLING Verified 11/09/16 18:41 diphenhydramine AdvReac numbness Verified 11/09/16 18:41 [From Benadryl] on tongue and throath Physical Exam - Constitutional Appears: Well - Head Exam Head Exam: ATRAUMATIC, NORMAL INSPECTION, NORMOCEPHALIC - Eye Exam Eye Exam: EOMI, Normal appearance, PERRL Pupil Exam: NORMAL ACCOMODATION, PERRL - ENT Exam ENT Exam: Mucous Membranes Moist, Normal Exam - Neck Exam Neck exam: Positive for: Normal Inspection - Respiratory Exam Respiratory Exam: Decreased Breath Sounds - Cardiovascular Exam Cardiovascular Exam: REGULAR RHYTHM, +S1, +S2 - GI/Abdominal Exam GI & Abdominal Exam: Diminished Bowel Sounds, Soft - Rectal Exam Rectal Exam: Deferred Results - Vital Signs Recent Vital Signs: Last Vital Signs Temp 99.1 F 12/19/16 15:44 Pulse 97 H 12/19/16 15:44 Resp 20 12/19/16 15:44 BP 110/72 12/19/16 15:44 Pulse Ox 99 12/19/16 15:44 - Labs Result Diagrams: 12/18/16 18:10 12/18/16 18:10 Labs: Laboratory Results - last 24 hr 12/18/16 12/18/16 18:10 18:10 WBC 8.3 RBC 4.27 Hgb 9.3 L Hct 29.2 L MCV 68.2 L D MCH 21.8 L MCHC 31.9 L RDW 31.7 H Plt Count 351 MPV 8.5 Neut % (Auto) 73.9 Lymph % (Auto) 17.0 L [place] % (Auto) 4.9 Eos % (Auto) 3.4 Baso % (Auto) 0.8 Neut # 6.1 Lymph # 1.4 [place] # 0.4 Eos # 0.3 Baso # 0.1 Sodium 138 Potassium 4.6 Chloride 99 Carbon Dioxide 25 Anion Gap 18 BUN 15 Creatinine 0.4 L Est GFR ( Amer) > 60 Est GFR (Non-Af Amer) > 60 Random Glucose 118 H Calcium 8.5 L Total Bilirubin 0.5 AST 28 ALT 23 Alkaline Phosphatase 115 Total Protein 7.9 Albumin 3.3 L Globulin 4.6 H Albumin/Globulin Ratio 0.7 L
[2016-12-20] MEDS ORDERED: Pneumococcal 23-Valent Vaccine IM ONE (10:00)
--- NOTE | 2016-12-20 12:00 | CP.PCM.PN ---
Subjective - Date & Time of Evaluation Date of Evaluation: 12/20/16 Time of Evaluation: 07:55 - Subjective Subjective: General Surgery- Dr. Trinidad Pt S&E at bedside this AM. No acute events overnight. Dressing changed at bedside. Blood oozing from the inferior portion of the mass. Denies F/C SOB N/ V. Tolerating diet. Objective - Vital Signs/Intake and Output Vital Signs (last 24 hours): Temp Pulse Resp BP Pulse Ox 97.6 F 98 H 20 108/68 99 12/20/16 07:57 12/20/16 07:57 12/20/16 07:57 12/20/16 07:57 12/20/16 07:57 Intake and Output: 12/20/16 12/20/16 06:59 18:59 Intake Total 120 Balance 120 - Medications Medications: Current Medications Hydromorphone HCl (Dilaudid) 0.5 mg IVP Q8H PRN PRN Reason: pain Clindamycin Phosphate 300 mg/ (Dextrose) 52 mls @ 100 mls/hr IVPB Q6H [facility] Last Admin: 12/20/16 11:20 Dose: Not Given Pantoprazole Sodium (Protonix Inj) 40 mg IVP DAILY [facility] Last Admin: 12/20/16 09:51 Dose: Not Given - Labs Labs: 12/18/16 18:10 12/18/16 18:10 - Constitutional Appears: No Acute Distress - Eye Exam Eye Exam: EOMI - Respiratory Exam Respiratory Exam: NORMAL BREATHING PATTERN. absent: Accessory Muscle Use - Cardiovascular Exam Cardiovascular Exam: +S1, +S2 - GI/Abdominal Exam GI & Abdominal Exam: Soft, Normal Bowel Sounds. absent: Tenderness, Diminished Bowel Sounds - Neurological Exam Neurological Exam: Awake, Oriented x3 - Skin Additional comments: Left breast mass. peduncaluated. Oozing from inferior boarder of the mass. Dressing changed with xeroform, gauze, abd, then tape Assessment and Plan - Assessment and Plan (Free Text) Assessment: 50 y/o female w/ left axilla breast mass, biopsy proven breast invasive CA, HER2 + Plan: -change dressing q2-3 days. -irrigate w/ saline prior to dressing changeso -further recs per Dr. Trinidad -no acute surgical intervention at this time d/w Dr. Amos Ma PGY1
--- NOTE | 2016-12-20 16:52 | CP.PCM.PN ---
Subjective - Date & Time of Evaluation Date of Evaluation: 12/20/16 Time of Evaluation: 09:20 - Subjective Subjective: clinically same Objective - Vital Signs/Intake and Output Vital Signs (last 24 hours): Temp Pulse Resp BP Pulse Ox 97.6 F 98 H 20 108/68 99 12/20/16 07:57 12/20/16 07:57 12/20/16 07:57 12/20/16 07:57 12/20/16 07:57 - Medications Medications: Current Medications Hydromorphone HCl (Dilaudid) 0.5 mg IVP Q8H PRN PRN Reason: pain Clindamycin Phosphate 300 mg/ (Dextrose) 52 mls @ 100 mls/hr IVPB Q6H [facility] Last Admin: 12/20/16 11:20 Dose: Not Given Pantoprazole Sodium (Protonix Inj) 40 mg IVP DAILY [facility] Last Admin: 12/20/16 09:51 Dose: Not Given - Constitutional Appears: Well - Head Exam Head Exam: ATRAUMATIC, NORMAL INSPECTION, NORMOCEPHALIC - Eye Exam Eye Exam: EOMI, Normal appearance, PERRL Pupil Exam: NORMAL ACCOMODATION, PERRL - ENT Exam ENT Exam: Mucous Membranes Moist, Normal Exam - Neck Exam Neck Exam: Full ROM, Normal Inspection. absent: Lymphadenopathy - Respiratory Exam Respiratory Exam: Decreased Breath Sounds - Cardiovascular Exam Cardiovascular Exam: REGULAR RHYTHM, +S1, +S2 - GI/Abdominal Exam GI & Abdominal Exam: Soft, Diminished Bowel Sounds - Rectal Exam Rectal Exam: Deferred Assessment and Plan - Assessment and Plan (Free Text) Plan: Follow-up the surgery follow-up with the child playing follow-up with the oncologist and discussed with Dr. Rice today to discuss with the patient about possible does not don'ts of the chemotherapy continue same
--- NOTE | 2016-12-20 19:25 | CP.PCM.CON ---
History of Present Illness - History of Present Illness History of Present Illness: 50 year old bed bound female with a history of rheumatoid arthritis, stage IV ER /[place] negative, HER 2 positive breast cancer diagnosed 10/2016, admitted with bleeding breast mass. The patient reports to rapidly enlarging breast mass in the last 3 months. She initially noticed this mass 1 year ago but was not concerned about it until it started to grow. She notes to oozing of blood from the mass. She also has had a diminished appetite with weightloss. CT chest revealed axillary, lung, bone lesions. She has been hesitant to start systemic treatment due to possibility of side effects. Past medical history: rheumatoid arthritis Past surgical history: Family history: Denies hematologic and oncologic problems Social history: Denies tobacco, alcohol,and illicit drug use. Allergies: Several, see allergy list. Review of systems: All remaining review of systems including HEENT, cardiovascular, respiratory, gastrointestinal, genitourinary, musculoskeletal, dermatologic, neurologic, and psychiatric are negative unless mentioned in the HPI. Past Patient History - Infectious Disease Hx of Infectious Diseases: None - Past Medical History & Family History Past Medical History?: Yes - Past Social History Smoking Status: Never Smoked - CARDIAC Hx Cardiac Disorders: No - PULMONARY Hx Respiratory Disorders: No - NEUROLOGICAL Hx Neurological Disorder: No - HEENT Hx HEENT Problems: No - RENAL Hx Chronic Kidney Disease: No - ENDOCRINE/METABOLIC Hx Endocrine Disorders: No - HEMATOLOGICAL/ONCOLOGICAL Hx Anemia: Yes - INTEGUMENTARY Hx Dermatological Problems: Yes Other/Comment: left upper chest mass - MUSCULOSKELETAL/RHEUMATOLOGICAL Hx Arthritis: Yes (severe athritis) Hx Rheumatoid Arthritis: Yes - GASTROINTESTINAL Hx Gastrointestinal Disorders: No - GENITOURINARY/GYNECOLOGICAL Other/Comment: menopausal - PSYCHIATRIC Hx Anxiety: Yes Hx Substance Use: No - SURGICAL HISTORY Hx Surgeries: Yes Hx Section: Yes (x2) Other/Comment: d&c - ANESTHESIA Hx Anesthesia: Yes Hx Anesthesia Reactions: No Meds Allergies/Adverse Reactions: Allergies Allergy/AdvReac Type Severity Reaction Status Date / Time ciprofloxacin [From Cipro] Allergy SWELLING Verified 11/09/16 18:41 ibuprofen Allergy Verified 12/18/16 17:32 magnesium Allergy CONGESTION Verified 11/09/16 18:41 Penicillins Allergy SWELLING Verified 11/09/16 18:41 diphenhydramine AdvReac numbness Verified 11/09/16 18:41 [From Benadryl] on tongue and throath - Medications Medications: Current Medications Hydromorphone HCl (Dilaudid) 0.5 mg IVP Q8H PRN PRN Reason: pain Clindamycin Phosphate 300 mg/ (Dextrose) 52 mls @ 100 mls/hr IVPB Q6H [facility] Last Admin: 12/20/16 17:44 Dose: 100 mls/hr Pantoprazole Sodium (Protonix Inj) 40 mg IVP DAILY [facility] Last Admin: 12/20/16 09:51 Dose: Not Given Physical Exam - Head Exam Head Exam: ATRAUMATIC - ENT Exam ENT Exam: Mucous Membranes Dry - Respiratory Exam Respiratory Exam: NORMAL BREATHING PATTERN - Cardiovascular Exam Cardiovascular Exam: +S1, +S2 - GI/Abdominal Exam GI & Abdominal Exam: Normal Bowel Sounds - Extremities Exam Extremities exam: Positive for: normal inspection - Neurological Exam Neurological exam: Oriented x3 - Psychiatric Exam Psychiatric exam: Normal Affect, Normal Mood - Skin Skin Exam: Warm Results - Vital Signs Recent Vital Signs: Last Vital Signs Temp 98.8 F 12/20/16 15:05 Pulse 90 12/20/16 15:05 Resp 20 12/20/16 15:05 BP 102/66 12/20/16 15:05 Pulse Ox 97 12/20/16 15:05 - Labs Result Diagrams: 12/18/16 18:10 12/18/16 18:10 Assessment & Plan (1) Anemia Assessment and Plan: prior iron deficiency related to chronic breast mass bleeding will repeat ferritin to evaluate iron stores Status: Acute (2) Breast cancer Assessment and Plan: stage IV hesistant to start treatment due to possibility of side effects supportive care Thank you for this interesting consult. Status: Acute
--- NOTE | 2016-12-20 19:27 | CP.PCM.PN ---
Subjective - Date & Time of Evaluation Date of Evaluation: 12/20/16 Time of Evaluation: 13:10 - Subjective Subjective: No complaints. Objective - Vital Signs/Intake and Output Vital Signs (last 24 hours): Temp Pulse Resp BP Pulse Ox 98.8 F 90 20 102/66 97 12/20/16 15:05 12/20/16 15:05 12/20/16 15:05 12/20/16 15:05 12/20/16 15:05 - Medications Medications: Current Medications Hydromorphone HCl (Dilaudid) 0.5 mg IVP Q8H PRN PRN Reason: pain Clindamycin Phosphate 300 mg/ (Dextrose) 52 mls @ 100 mls/hr IVPB Q6H [facility] Last Admin: 12/20/16 17:44 Dose: 100 mls/hr Pantoprazole Sodium (Protonix Inj) 40 mg IVP DAILY [facility] Last Admin: 12/20/16 09:51 Dose: Not Given - Head Exam Head Exam: ATRAUMATIC - Eye Exam Eye Exam: Normal appearance - ENT Exam ENT Exam: Mucous Membranes Dry - Respiratory Exam Respiratory Exam: NORMAL BREATHING PATTERN - Cardiovascular Exam Cardiovascular Exam: +S1, +S2 - GI/Abdominal Exam GI & Abdominal Exam: Normal Bowel Sounds - Extremities Exam Extremities Exam: Normal Inspection Assessment and Plan (1) Anemia Assessment & Plan: f/u ferritin Status: Acute (2) Breast cancer Assessment & Plan: stage IV hesitant to start treatment due to possibility of side effects supportive care Status: Acute
--- NOTE | 2016-12-21 08:33 | CP.PCM.PN ---
Subjective - Date & Time of Evaluation Date of Evaluation: 12/21/16 Time of Evaluation: 07:50 - Subjective Subjective: SURGERY NOTE FOR DR HINES 50F seen and examined at bedside. Patient resting comfortable, states that left breast mass continues to ooze blood on and off. Objective - Vital Signs/Intake and Output Vital Signs (last 24 hours): Temp Pulse Resp BP Pulse Ox 98.0 F 96 H 20 98/63 L 96 12/21/16 08:02 12/21/16 08:02 12/21/16 08:02 12/21/16 08:02 12/21/16 08:02 Intake and Output: 12/21/16 12/21/16 06:59 18:59 Intake Total 230 100 Balance 230 100 - Medications Medications: Current Medications Hydromorphone HCl (Dilaudid) 0.5 mg IVP Q8H PRN PRN Reason: pain Clindamycin Phosphate 300 mg/ (Dextrose) 52 mls @ 100 mls/hr IVPB Q6H [facility] Last Admin: 12/21/16 06:12 Dose: Not Given Pantoprazole Sodium (Protonix Inj) 40 mg IVP DAILY [facility] Last Admin: 12/20/16 09:51 Dose: Not Given - Constitutional Appears: Non-toxic, No Acute Distress, Cachectic - Respiratory Exam Respiratory Exam: Clear to Ausculation Bilateral, NORMAL BREATHING PATTERN - Cardiovascular Exam Cardiovascular Exam: REGULAR RHYTHM, +S1, +S2 - Neurological Exam Neurological Exam: Alert, Awake - Additional Findings Additional findings: breast mass dressed with multiple layers of 4*4 gauze, no active oozing appreciated Assessment and Plan - Assessment and Plan (Free Text) Assessment: 50F with left breast mass, invasive ductal carcinoma, oozing blood, controlled Plan: - monitor for further bleeding, dressing changes Q2days Further recs discuss with Dr. Amos Apodaca, PGY2
--- NOTE | 2016-12-21 11:02 | CP.PCM.PN ---
Subjective - Date & Time of Evaluation Date of Evaluation: 12/21/16 Time of Evaluation: 09:00 - Subjective Subjective: clinically same Objective - Vital Signs/Intake and Output Vital Signs (last 24 hours): Temp Pulse Resp BP Pulse Ox 98.0 F 96 H 20 98/63 L 96 12/21/16 08:02 12/21/16 08:02 12/21/16 08:02 12/21/16 08:02 12/21/16 08:02 Intake and Output: 12/21/16 12/21/16 06:59 18:59 Intake Total 230 100 Balance 230 100 - Medications Medications: Current Medications Hydromorphone HCl (Dilaudid) 0.5 mg IVP Q8H PRN PRN Reason: pain Clindamycin Phosphate 300 mg/ (Dextrose) 52 mls @ 100 mls/hr IVPB Q6H [facility] Last Admin: 12/21/16 06:12 Dose: Not Given Pantoprazole Sodium (Protonix Inj) 40 mg IVP DAILY [facility] Last Admin: 12/20/16 09:51 Dose: Not Given - Constitutional Appears: Well - Head Exam Head Exam: ATRAUMATIC, NORMAL INSPECTION, NORMOCEPHALIC - Eye Exam Eye Exam: EOMI, Normal appearance, PERRL Pupil Exam: NORMAL ACCOMODATION, PERRL - ENT Exam ENT Exam: Mucous Membranes Moist, Normal Exam - Neck Exam Neck Exam: Full ROM, Normal Inspection. absent: Lymphadenopathy - Respiratory Exam Respiratory Exam: Decreased Breath Sounds - Cardiovascular Exam Cardiovascular Exam: REGULAR RHYTHM, +S1, +S2 - GI/Abdominal Exam GI & Abdominal Exam: Soft, Diminished Bowel Sounds - Rectal Exam Rectal Exam: Deferred Assessment and Plan (1) Breast cancer Status: Acute (2) Anemia Status: Acute (3) Bleeding from breast Status: Acute (4) Breast mass, left Status: Acute (5) Chest pain Status: Acute (6) Clinical decompensation Status: Acute (7) Constipation Status: Acute (8) Invasive ductal carcinoma of breast, stage 3 Status: Acute (9) Prophylactic measure Status: Acute - Assessment and Plan (Free Text) Plan: Extensive discussion with the patient's about going to the rehab S patient's especially LTAC patient advised that does not don'ts patient still have a bleeding somewhat and the pain at the left breast mass patient was seen and discussed about the different chemotherapy options by Dr. perla and will continue to talk to the patient's
[2016-12-21 11:16] LABS: BASO % 0.5 % (0.0-2.0); EOS # 0.3 K/uL (0.0-0.7); EOS % 5.9 % (0.0-4.0); HEMOGLOBIN 8.3 g/dL (11.0-16.0); LYMPH # 0.9 K/uL (1.0-4.3); LYMPH % 15.3 % (20.0-40.0); MEAN CELL VOLUME 68.5 fL (81.0-99.0); MEAN CORPUSCULAR HEMOGLOBIN 22.1 pg (27.0-31.0); MEAN CORPUSCULAR HGB CONC 32.3 g/dL (33.0-37.0); MEAN PLATELET VOLUME 8.6 fL (7.2-11.7); MONO # 0.3 K/uL (0.0-0.8); MONO % 5.8 % (0.0-10.0); NEUT # 4.2 K/uL (1.8-7.0); NEUT % 72.5 % (50.0-75.0); RBC 3.74 Mil/uL (3.80-5.20); RED CELL DISTRIBUTION WIDTH 30.2 % (11.5-14.5); WHITE BLOOD COUNT 5.8 K/uL (4.8-10.8)
[2016-12-21 11:37] LABS: ALB/GLOB RATIO 0.7 (1.0-2.1); ALT/SGPT 17 U/L (9-52); AST/SGOT 23 U/L (14-36); BLOOD UREA NITROGEN 11 mg/dL (7-17); CALCIUM 8.3 mg/dl (8.6-10.4); GFR AFRICAN-AMERICAN > 60; GFR NON-AFRICAN AMERICAN > 60
--- NOTE | 2016-12-21 11:57 | CP.PCM.PN ---
Subjective - Date & Time of Evaluation Date of Evaluation: 12/21/16 Time of Evaluation: 10:00 - Subjective Subjective: PGY3 on heme/onc Dr. Holt service: Pt seen and examined at bedside this morning. No complaints at this time. No acute distress and resting well on bed. Objective - Vital Signs/Intake and Output Vital Signs (last 24 hours): Temp Pulse Resp BP Pulse Ox 98.0 F 96 H 20 98/63 L 96 12/21/16 08:02 12/21/16 08:02 12/21/16 08:02 12/21/16 08:02 12/21/16 08:02 Intake and Output: 12/21/16 12/21/16 06:59 18:59 Intake Total 230 100 Balance 230 100 - Medications Medications: Current Medications Hydromorphone HCl (Dilaudid) 0.5 mg IVP Q8H PRN PRN Reason: pain Clindamycin Phosphate 300 mg/ (Dextrose) 52 mls @ 100 mls/hr IVPB Q6H [facility] Last Admin: 12/21/16 06:12 Dose: Not Given Pantoprazole Sodium (Protonix Inj) 40 mg IVP DAILY [facility] Last Admin: 12/20/16 09:51 Dose: Not Given - Labs Labs: 12/21/16 11:06 12/21/16 11:06 - Constitutional Appears: Non-toxic, No Acute Distress - Head Exam Head Exam: NORMOCEPHALIC - Eye Exam Eye Exam: Normal appearance - Respiratory Exam Respiratory Exam: NORMAL BREATHING PATTERN - Cardiovascular Exam Cardiovascular Exam: REGULAR RHYTHM, +S1, +S2. absent: Gallop, Rubs - GI/Abdominal Exam GI & Abdominal Exam: Normal Bowel Sounds - Neurological Exam Neurological Exam: Alert, Awake, Oriented x3 - Psychiatric Exam Psychiatric exam: Normal Mood Assessment and Plan - Assessment and Plan (Free Text) Assessment: (1) Anemia Assessment & Plan: F/U ferritin Status: Acute (2) Breast cancer Assessment & Plan: stage IV hesitant to start treatment due to possibility of side effects supportive care for now Status: Acute
[2016-12-21 12:10] LABS: FERRITIN 35.6 ng/mL
--- NOTE | 2016-12-22 10:22 | CP.PCM.PN ---
Subjective - Date & Time of Evaluation Date of Evaluation: 12/22/16 Time of Evaluation: 09:45 - Subjective Subjective: SURGERY NOTE FOR DR. HINES 50F seen and examined at bedside. Patient is resting in bed, continuos to complain of watery oozing from the mass under the bandages. No F/C overnight. Objective - Vital Signs/Intake and Output Vital Signs (last 24 hours): Temp Pulse Resp BP Pulse Ox 98.6 F 91 H 20 98/63 L 100 12/22/16 07:45 12/22/16 07:45 12/22/16 07:45 12/22/16 07:45 12/22/16 07:45 Intake and Output: 12/22/16 12/22/16 06:59 18:59 Intake Total 450 Balance 450 - Medications Medications: Current Medications Hydromorphone HCl (Dilaudid) 0.5 mg IVP Q8H PRN PRN Reason: pain Clindamycin Phosphate 300 mg/ (Dextrose) 52 mls @ 100 mls/hr IVPB Q6H [facility] Last Admin: 12/22/16 07:15 Dose: Not Given Pantoprazole Sodium (Protonix Inj) 40 mg IVP DAILY [facility] Last Admin: 12/21/16 12:09 Dose: Not Given - Labs Labs: 12/21/16 11:06 12/21/16 11:06 - Constitutional Appears: Non-toxic, No Acute Distress, Cachectic - Cardiovascular Exam Cardiovascular Exam: REGULAR RHYTHM, +S1, +S2 - Neurological Exam Neurological Exam: Alert, Awake - Additional Findings Additional findings: left breast mass bandaged with 4by4 gauze, stained with serousang fluid Assessment and Plan - Assessment and Plan (Free Text) Assessment: 50F with left breast mass, invasive ductal carcinoma, oozing blood, controlled - Dressing change today with further evaluation - dressing changes Q2 Further recs discuss with Dr. Amos Apodaca, PGY2
[2016-12-22 14:11] LABS: BASO % 0.4 % (0.0-2.0); EOS # 0.3 K/uL (0.0-0.7); HEMOGLOBIN 8.2 g/dL (11.0-16.0); LYMPH # 0.9 K/uL (1.0-4.3); LYMPH % 12.7 % (20.0-40.0); MEAN CELL VOLUME 68.6 fL (81.0-99.0); MEAN CORPUSCULAR HGB CONC 32.1 g/dL (33.0-37.0); MEAN PLATELET VOLUME 8.5 fL (7.2-11.7); MONO # 0.2 K/uL (0.0-0.8); MONO % 3.2 % (0.0-10.0); NEUT # 5.4 K/uL (1.8-7.0); NEUT % 79.7 % (50.0-75.0); RBC 3.72 Mil/uL (3.80-5.20); WHITE BLOOD COUNT 6.8 K/uL (4.8-10.8)
[2016-12-22 14:24] LABS: ALBUMIN 3.1 g/dL (3.5-5.0)
[2016-12-22 14:27] LABS: ALB/GLOB RATIO 0.7 (1.0-2.1); ALT/SGPT 20 U/L (9-52); AST/SGOT 21 U/L (14-36); BLOOD UREA NITROGEN 12 mg/dL (7-17); GFR AFRICAN-AMERICAN > 60; GFR NON-AFRICAN AMERICAN > 60
[2016-12-22 14:28] LABS: CALCIUM 8.3 mg/dl (8.6-10.4)
--- NOTE | 2016-12-22 15:17 | CP.PCM.PN ---
Subjective - Date & Time of Evaluation Date of Evaluation: 12/22/16 Time of Evaluation: 08:40 - Subjective Subjective: clinically same Objective - Vital Signs/Intake and Output Vital Signs (last 24 hours): Temp Pulse Resp BP Pulse Ox 98.6 F 91 H 20 98/63 L 100 12/22/16 07:45 12/22/16 07:45 12/22/16 07:45 12/22/16 07:45 12/22/16 07:45 Intake and Output: 12/22/16 12/22/16 06:59 18:59 Intake Total 450 Balance 450 - Medications Medications: Current Medications Hydromorphone HCl (Dilaudid) 0.5 mg IVP Q8H PRN PRN Reason: pain Clindamycin Phosphate 300 mg/ (Dextrose) 52 mls @ 100 mls/hr IVPB Q6H [facility] Last Admin: 12/22/16 14:46 Dose: Not Given Pantoprazole Sodium (Protonix Inj) 40 mg IVP DAILY [facility] Last Admin: 12/22/16 10:39 Dose: 40 mg - Labs Labs: 12/22/16 14:03 12/22/16 14:03 - Constitutional Appears: Well - Head Exam Head Exam: ATRAUMATIC, NORMAL INSPECTION, NORMOCEPHALIC - Eye Exam Eye Exam: EOMI, Normal appearance, PERRL Pupil Exam: NORMAL ACCOMODATION, PERRL - ENT Exam ENT Exam: Mucous Membranes Moist, Normal Exam - Neck Exam Neck Exam: Full ROM, Normal Inspection. absent: Lymphadenopathy - Respiratory Exam Respiratory Exam: Decreased Breath Sounds - Cardiovascular Exam Cardiovascular Exam: REGULAR RHYTHM, +S1, +S2 - GI/Abdominal Exam GI & Abdominal Exam: Soft, Diminished Bowel Sounds - Rectal Exam Rectal Exam: Deferred Assessment and Plan (1) Breast cancer Status: Acute (2) Anemia Status: Acute (3) Bleeding from breast Status: Acute (4) Breast mass, left Status: Acute (5) Chest pain Status: Acute (6) Clinical decompensation Status: Acute (7) Constipation Status: Acute (8) Invasive ductal carcinoma of breast, stage 3 Status: Acute (9) Prophylactic measure Status: Acute
[2016-12-22] MEDS: Ferric Sodium Gluconat Complex 62.5 mg/5 ml Vial IVPB SCH (17:45)
--- NOTE | 2016-12-22 17:47 | CP.PCM.PN ---
Subjective - Date & Time of Evaluation Date of Evaluation: 12/22/16 Time of Evaluation: 10:00 - Subjective Subjective: PGY3 on heme/onc Dr. Holt service: Pt seen and examined at bedside this morning. Resting on bed with poor appetite. No acute distress. Patient wishes to go home. Objective - Vital Signs/Intake and Output Vital Signs (last 24 hours): Temp Pulse Resp BP Pulse Ox 98.8 F 110 H 20 122/61 98 12/22/16 15:00 12/22/16 15:00 12/22/16 15:00 12/22/16 15:00 12/22/16 15:00 Intake and Output: 12/22/16 12/22/16 06:59 18:59 Intake Total 450 Balance 450 - Medications Medications: Current Medications Ferric Sodium Gluconate Complex (Ferrlecit) 125 mg IVPB DAILY [facility] Stop: 12/30/16 17:16 Hydromorphone HCl (Dilaudid) 0.5 mg IVP Q8H PRN PRN Reason: pain Clindamycin Phosphate 300 mg/ (Dextrose) 52 mls @ 100 mls/hr IVPB Q6H [facility] Last Admin: 12/22/16 14:46 Dose: Not Given Pantoprazole Sodium (Protonix Inj) 40 mg IVP DAILY [facility] Last Admin: 12/22/16 10:39 Dose: 40 mg - Labs Labs: 12/22/16 14:03 12/22/16 14:03 - Constitutional Appears: Non-toxic, No Acute Distress, Cachectic - Head Exam Head Exam: ATRAUMATIC - Eye Exam Eye Exam: Normal appearance Pupil Exam: NORMAL ACCOMODATION - Respiratory Exam Respiratory Exam: NORMAL BREATHING PATTERN - Cardiovascular Exam Cardiovascular Exam: REGULAR RHYTHM - GI/Abdominal Exam GI & Abdominal Exam: Soft - Neurological Exam Neurological Exam: Alert, Awake, Oriented x3 - Psychiatric Exam Psychiatric exam: Normal Mood Assessment and Plan - Assessment and Plan (Free Text) Assessment: (1) Anemia Assessment & Plan: Ferritin 35.8 Will start Ferrlecit 125mg IVPB daily Patient may benefit from PO iron outpatient Status: Acute (2) Breast cancer Assessment & Plan: stage IV hesitant to start treatment due to possibility of side effects supportive care for now Status: Acute
--- NOTE | 2016-12-22 18:02 | CP.PCM.PN ---
Subjective - Date & Time of Evaluation Date of Evaluation: 12/22/16 Time of Evaluation: 17:59 - Subjective Subjective: PT SEEN AND EXAMINED TODAY BY DR Dani GRAMAJO, GAY NAY PAIN, SOB, RESP EASY AND UNLABORED. NAD Objective - Vital Signs/Intake and Output Vital Signs (last 24 hours): Temp Pulse Resp BP Pulse Ox 98.8 F 110 H 20 122/61 98 12/22/16 15:00 12/22/16 15:00 12/22/16 15:00 12/22/16 15:00 12/22/16 15:00 Intake and Output: 12/22/16 12/22/16 06:59 18:59 Intake Total 450 Balance 450 - Medications Medications: Current Medications Ferric Sodium Gluconate Complex (Ferrlecit) 125 mg IVPB DAILY [facility] Stop: 12/30/16 17:16 Hydromorphone HCl (Dilaudid) 0.5 mg IVP Q8H PRN PRN Reason: pain Clindamycin Phosphate 300 mg/ (Dextrose) 52 mls @ 100 mls/hr IVPB Q6H [facility] Last Admin: 12/22/16 14:46 Dose: Not Given Pantoprazole Sodium (Protonix Inj) 40 mg IVP DAILY [facility] Last Admin: 12/22/16 10:39 Dose: 40 mg - Labs Labs: 12/22/16 14:03 12/22/16 14:03 Assessment and Plan - Assessment and Plan (Free Text) Plan: PT ADMITTED FOR LEFT BREAST CANCER STAGE IV, BLEEDING BREAST TUMOR, ANEMIA IV CLINDAMYCIN PICC INSERTION IN AM FOR OUTPT IV ABX THERAPY IV FERRLECIT PER DR DUKE IRON PO UPON DISCHARGE AM LABS, PROPHYLAXIS DVT FOLLOW UP WITH PMD, DR DUKE
[2016-12-23 07:08] LABS: ALB/GLOB RATIO 0.7 (1.0-2.1); ALT/SGPT 16 U/L (9-52); AST/SGOT 20 U/L (14-36); BLOOD UREA NITROGEN 11 mg/dL (7-17); CALCIUM 8.3 mg/dl (8.6-10.4); GFR AFRICAN-AMERICAN > 60; GFR NON-AFRICAN AMERICAN > 60
[2016-12-23 08:27] LABS: BASO % 0.7 % (0.0-2.0); EOS # 0.4 K/uL (0.0-0.7); EOS % 6.5 % (0.0-4.0); HEMOGLOBIN 8.3 g/dL (11.0-16.0); LYMPH # 1.5 K/uL (1.0-4.3); LYMPH % 23.1 % (20.0-40.0); MEAN CELL VOLUME 69.4 fL (81.0-99.0); MEAN CORPUSCULAR HGB CONC 31.7 g/dL (33.0-37.0); MEAN PLATELET VOLUME 8.9 fL (7.2-11.7); MONO # 0.4 K/uL (0.0-0.8); MONO % 5.3 % (0.0-10.0); NEUT # 4.3 K/uL (1.8-7.0); NEUT % 64.4 % (50.0-75.0); NRBC % 0.7 % (0.0-2.0); RBC 3.79 Mil/uL (3.80-5.20); WHITE BLOOD COUNT 6.6 K/uL (4.8-10.8)
--- NOTE | 2016-12-23 08:42 | CP.PCM.PN ---
Subjective - Date & Time of Evaluation Date of Evaluation: 12/23/16 Time of Evaluation: 06:50 - Subjective Subjective: Surgery Note- Dr. Trinidad Pt S&E at bedside this AM. No acute events overnight. Dressing C/D/I. did not change dressing this AM. Tolerating current diet. Denies N/V CP/SOB F/C/SANTOS Objective - Vital Signs/Intake and Output Vital Signs (last 24 hours): Temp Pulse Resp BP Pulse Ox 98.5 F 89 20 106/64 97 12/23/16 00:15 12/23/16 00:15 12/23/16 00:15 12/23/16 00:15 12/23/16 00:15 - Medications Medications: Current Medications Ferric Sodium Gluconate Complex (Ferrlecit) 125 mg IVPB DAILY [facility] Stop: 12/30/16 17:16 Last Admin: 12/22/16 17:45 Dose: Not Given Clindamycin Phosphate 300 mg/ (Dextrose) 52 mls @ 100 mls/hr IVPB Q6H [facility] Last Admin: 12/23/16 07:30 Dose: Not Given Pantoprazole Sodium (Protonix Inj) 40 mg IVP DAILY [facility] Last Admin: 12/22/16 10:39 Dose: 40 mg - Labs Labs: 12/23/16 06:44 12/23/16 06:44 - Constitutional Appears: Well, No Acute Distress - Eye Exam Eye Exam: EOMI - Respiratory Exam Respiratory Exam: NORMAL BREATHING PATTERN. absent: Accessory Muscle Use, Rales , Rhonchi, Wheezes - Cardiovascular Exam Cardiovascular Exam: RRR, +S1, +S2 - GI/Abdominal Exam GI & Abdominal Exam: Soft, Normal Bowel Sounds. absent: Distended, Rigid, Tenderness - Neurological Exam Neurological Exam: Alert, Awake, Oriented x3 - Psychiatric Exam Psychiatric exam: Normal Affect - Skin Additional comments: Left breast dressing C/D/I no strike through. Assessment and Plan - Assessment and Plan (Free Text) Assessment: 50F with left breast mass, invasive ductal carcinoma, oozing blood, controlled Plan: - Dressing change tomorrow with further evaluation - dressing changes Q2 - no surgical intervention at this time Further rec[facility]
[2016-12-23] MEDS: Ferric Sodium Gluconat Complex 62.5 mg/5 ml Vial IVPB SCH (10:47)
--- NOTE | 2016-12-23 12:03 | CP.PCM.PN ---
Subjective - Date & Time of Evaluation Date of Evaluation: 12/23/16 Time of Evaluation: 12:03 - Subjective Subjective: PT TO BE D/C HOME TODAY WITH PICC LINE AND 2 WEEKS IV CLINDAMYCIN. JALEESA, PICC RN UNABLE TO DO INSERTION AT BEDSIDE 2/2 PT LIMITED TO RIGHT ARM ONLY AND SHE IS CONTRACTED. DR. CREWS IN IR AND PT REFUSED TO HAVE PICC DONE WITH HIM BECAUSE SHE WAS "NERVOUS AND WANTED TO WAIT A COUPLE HOURS." DISCUSSED CONCERNS W PT. ALSO MUST BE NOTED THAT THE PT HAS BEEN CONTINUOUSLY REFUSING IV CLINDA HERE INPATIENT, MISSING ALMOST EVERY DOSE. I DISCUSSED WITH HER THAT IN ORDER FOR HER INFECTED WOUND TO BREAST TO HEAL SHE NEEDS TO ADHERE TO ABX REGIMEN. AFTER SEVERAL CONVERSATIONS W THE PT REGARDING THIS SHE ADMITS THAT TABLETS WOULD WORK BETTER FOR HER. DIRECTORY CARRIER DISCUSSED THIS WITH DR. GRAMAJO AND OK PER HIM. PT TO CONTINUE CLINDA PO X2 WEEKS. WOUND CARE PER SURGERY; DIRECTORY CARRIER PROVIDED RX FOR WOUND CARE SUPPLIES. TO F/U WITH DR. Gisella GRAMAJO ON MONDAY OR MONDAY IN OFFICE AND WITH DR. HINES WITHIN 1-2 WEEKS. NO FURTHER ORDERS. D/C INSTRUCTIONS PROVIDED: FOLLOW UP WITH DR. Dani GRAMAJO IN THE OFFICE ON MONDAY OR MONDAY---CALL THE OFFICE FOR APPT TIME. FOLLOW UP WITH DR. HINES (SURGEON) IN HER OFFICE IN 1-2 WEEKS--CALL THE OFFICE FOR APPT TIME. WOUND CARE FOR THE LEFT BREAST: Dressing change with xeroform gauze followed by 4x4 and ABD, then medipore tape placed on top to secure dressing. Change dressing every 2 days. ANY WORSENING APPEARANCE TO THE AREA, REPORT IT TO YOUR DOCTOR IMMEDIATELY. MAKE SURE YOU TAKE THE ANTIBIOTIC EVERY 6 HOURS AND EXACTLY PRESCRIBED. IT IS VERY IMPORTANT THAT YOU CONTINUE THE MEDICINE FOR 2 WEEKS TOTAL (START AND LAST DOSE TO BE GIVEN ON 01/07/17). IF YOU HAVE FURTHER CONCERNS OR QUESTIONS, CONTACT YOUR DOCTOR. Objective - Vital Signs/Intake and Output Vital Signs (last 24 hours): Temp Pulse Resp BP Pulse Ox 98.3 F 80 20 96/58 L 99 12/23/16 08:41 12/23/16 08:41 12/23/16 08:41 12/23/16 08:41 12/23/16 08:41 - Medications Medications: Current Medications Ferric Sodium Gluconate Complex (Ferrlecit) 125 mg IVPB DAILY [facility] Stop: 12/30/16 17:16 Last Admin: 12/23/16 10:47 Dose: 125 mg Clindamycin Phosphate 300 mg/ (Dextrose) 52 mls @ 100 mls/hr IVPB Q6H [facility] Last Admin: 12/23/16 07:30 Dose: Not Given Pantoprazole Sodium (Protonix Inj) 40 mg IVP DAILY [facility] Last Admin: 12/23/16 10:48 Dose: 40 mg - Labs Labs: 12/23/16 06:44 12/23/16 06:44
--- NOTE | 2016-12-23 14:52 | CP.PCM.PN ---
Subjective - Date & Time of Evaluation Date of Evaluation: 12/23/16 Time of Evaluation: 10:00 - Subjective Subjective: PGY3 on heme/onc Dr. Holt service: Pt seen and examined at bedside this morning. Complains of fatigue as usual. For PICC placement today. Objective - Vital Signs/Intake and Output Vital Signs (last 24 hours): Temp Pulse Resp BP Pulse Ox 98.3 F 80 20 96/58 L 99 12/23/16 08:41 12/23/16 08:41 12/23/16 08:41 12/23/16 08:41 12/23/16 08:41 - Medications Medications: Current Medications Ferric Sodium Gluconate Complex (Ferrlecit) 125 mg IVPB DAILY COUNTS INCLUDE 234 BEDS AT THE [facility] Stop: 12/30/16 17:16 Last Admin: 12/23/16 10:47 Dose: 125 mg Clindamycin Phosphate 300 mg/ (Dextrose) 52 mls @ 100 mls/hr IVPB Q6H COUNTS INCLUDE 234 BEDS AT THE [facility] Last Admin: 12/23/16 14:23 Dose: 100 mls/hr Pantoprazole Sodium (Protonix Inj) 40 mg IVP DAILY COUNTS INCLUDE 234 BEDS AT THE [facility] Last Admin: 12/23/16 10:48 Dose: 40 mg - Labs Labs: 12/23/16 06:44 12/23/16 06:44 - Constitutional Appears: Non-toxic, No Acute Distress, Chronically Ill - Head Exam Head Exam: NORMOCEPHALIC - Respiratory Exam Respiratory Exam: NORMAL BREATHING PATTERN - Cardiovascular Exam Cardiovascular Exam: REGULAR RHYTHM - Neurological Exam Neurological Exam: Alert, Awake, Oriented x3 - Psychiatric Exam Psychiatric exam: Normal Mood - Skin Additional comments: left chest dressing intact. Assessment and Plan - Assessment and Plan (Free Text) Assessment: (1) Anemia Assessment & Plan: Ferritin 35.8 Will start Ferrlecit 125mg IVPB daily Patient may benefit from PO iron outpatient Status: Acute (2) Breast cancer Assessment & Plan: stage IV hesitant to start treatment due to possibility of side effects supportive care for now Status: Acute
--- NOTE | 2016-12-23 16:29 | CP.PCM.PN ---
Subjective - Date & Time of Evaluation Date of Evaluation: 12/23/16 Time of Evaluation: 08:20 - Subjective Subjective: Clinically same Objective - Vital Signs/Intake and Output Vital Signs (last 24 hours): Temp Pulse Resp BP Pulse Ox 98.3 F 80 20 96/58 L 99 12/23/16 08:41 12/23/16 08:41 12/23/16 08:41 12/23/16 08:41 12/23/16 08:41 - Medications Medications: Current Medications Ferric Sodium Gluconate Complex (Ferrlecit) 125 mg IVPB DAILY [facility] Stop: 12/30/16 17:16 Last Admin: 12/23/16 10:47 Dose: 125 mg Clindamycin Phosphate 300 mg/ (Dextrose) 52 mls @ 100 mls/hr IVPB Q6H [facility] Last Admin: 12/23/16 14:23 Dose: 100 mls/hr Pantoprazole Sodium (Protonix Inj) 40 mg IVP DAILY [facility] Last Admin: 12/23/16 10:48 Dose: 40 mg - Labs Labs: 12/23/16 06:44 12/23/16 06:44 - Constitutional Appears: Well - Head Exam Head Exam: ATRAUMATIC, NORMAL INSPECTION, NORMOCEPHALIC - Eye Exam Eye Exam: EOMI, Normal appearance, PERRL Pupil Exam: NORMAL ACCOMODATION, PERRL - ENT Exam ENT Exam: Mucous Membranes Moist, Normal Exam - Neck Exam Neck Exam: Full ROM, Normal Inspection. absent: Lymphadenopathy - Respiratory Exam Respiratory Exam: Decreased Breath Sounds, Clear to Ausculation Bilateral, NORMAL BREATHING PATTERN - Cardiovascular Exam Cardiovascular Exam: REGULAR RHYTHM, +S1, +S2 - GI/Abdominal Exam GI & Abdominal Exam: Soft, Diminished Bowel Sounds - Rectal Exam Rectal Exam: Deferred Assessment and Plan (1) Breast cancer Status: Acute (2) Anemia Status: Acute (3) Bleeding from breast Status: Acute (4) Breast mass, left Status: Acute (5) Chest pain Status: Acute (6) Clinical decompensation Status: Acute (7) Constipation Status: Acute (8) Invasive ductal carcinoma of breast, stage 3 Status: Acute (9) Prophylactic measure Status: Acute
[2016-12-23 16:37] VITALS: BP 112/72; PULSE 91; TEMP 98.6
[2016-12-23 19:33] VITALS: O2SAT 100
== END 2016-12-23 20:35 | disposition home or self-care (01) | DRG 599 ==
LOC: C.ER 17:17 → C.9E 18:06 → C.3T 18:33 → OBSVTOIN 12-20 11:43
PROVIDERS: ADMIT Internal Medicine Nephrology; ATTEND Internal Medicine Nephrology
DX: C50.812 Malignant neoplasm of overlapping sites of left female breast (principal); E61.1 Iron deficiency; M06.9 Rheumatoid arthritis, unspecified; Z17.0 Estrogen receptor positive status [ER+]; Z74.01 Bed confinement status; K59.00 Constipation, unspecified

== ENCOUNTER 2017-01-08 22:48 | Inpatient (IN) | payer MEDICARE, OTHER ==
[2017-01-08] MEDS ORDERED: Sodium Chloride 0.9% 1,000 ML IV ONE (23:07)
--- NOTE | 2017-01-08 23:16 | C.PDOC ---
History Of Present Illness Patient BIBA for evaluation of bleeding from left breast tumor since approx 9: 30pm today. Patient has h/o breast CA, has had prior episodes of similar symptoms. Patient was seen by Dr. Trinidad & her team during prior admission, given surgicel to apply in case in bleeding. Patient states she tried the surgicel, but it has not worked. However she states it has not worked, and she has had a large amount of bleeding from area. Time Seen by Provider: 01/08/17 22:49 Chief Complaint (Nursing): Abnormal Skin Integrity History Per: Patient History/Exam Limitations: no limitations Onset/Duration Of Symptoms: Hrs Current Symptoms Are (Timing): Still Present Severity: Moderate Past Medical History Reviewed: Historical Data, Nursing Documentation, Vital Signs Vital Signs: Last Vital Signs Temp 98.4 F 01/13/17 15:54 Pulse 99 H 01/13/17 15:54 Resp 20 01/13/17 15:54 BP 125/72 01/13/17 15:54 Pulse Ox 99 01/13/17 15:54 - Medical History PMH: Anemia, Anxiety, Arthritis (severe athritis), Malignancy, Rheumatoid Arthritis - [facility] Procedures EXCISION OF LEFT BREAST, OPEN APPROACH, DIAGNOSTIC (11/06/16) Family History: States: No Known Family Hx - Social History Hx Tobacco Use: No Hx Alcohol Use: No Hx Substance Use: No - Immunization History Hx Tetanus Toxoid Vaccination: No Hx Influenza Vaccination: No Hx Pneumococcal Vaccination: No Review Of Systems Except As Marked, All Systems Reviewed And Found Negative. Constitutional: Negative for: Fever, Chills Cardiovascular: Negative for: Chest Pain Respiratory: Negative for: Cough, Shortness of Breath Skin: Positive for: Other (left breast tumor with bleeding) Physical Exam - Physical Exam Appears: Well, Non-toxic, In Acute Distress (mild), Chronically Ill, Other ( cachectic) Skin: Other (left breast lateral aspect - large, foul smelling breast mass with various areas of oozing/bleeding) Oral Mucosa: Moist Cardiovascular: Rhythm Regular (tachycardic ) Respiratory: Normal Breath Sounds, No Rales, No Rhonchi, No Wheezing Gastrointestinal/Abdominal: Normal Exam, Bowel Sounds, Soft, No Tenderness Neurological/Psych: Oriented x3 ED Course And Treatment - Laboratory Results Result Diagrams: 01/12/17 11:18 01/12/17 11:18 ECG: Interpreted By Me, Viewed By Me (sinus tachycardia 139 bpm, normal axis, no acute T/T wave changes) ECG Interpretation: Abnormal O2 Sat by Pulse Oximetry: 100 (RA) Pulse Ox Interpretation: Normal Progress Note: Blood work, EKG, CXR ordered and reviewed. Patient anemic and had had bleding for several hours from breast - transfusion of PRBcs ordered. 11:15pm- Surgery resident spoken with and aware of patient in ED/consult. 1: 40am- Discussed with PMD Dr. Gisella Martinez - he is away, would like admission under Dr. Acosta. 1:55am- Dr. Acosta spoken with, agrees with admission to his service. - Physician Consult Information Physician Contacted: Fawad Acosta Critical Care Time - Critical Care Note Total Time (in mins): 35 Documented critical care: time excludes all time spent performing seperately billable procedures. Disposition - Disposition Disposition: HOME/ ROUTINE Disposition Time: 01:41 Condition: FAIR - Clinical Impression Clinical Impression: Anemia, Breast cancer, Bleeding, Tachycardia Decision To Admit - Pt Status Changed To: Hospital Disposition Of: Inpatient - Admit Certification Admit to Inpatient:: After my assessment, the patient will require hospitalization for at least two midnights. This is because of the severity of symptoms shown, intensity of services needed, and/or the medical risk in this patient being treated as an outpatient. - InPatient: Physician Admission Certification: I certify that this patient requires 2 or more midnights of care for the following reason:: see notes - . Bed Request Type: Telemetry Admitting Physician: Fawad Acosta Patient Diagnosis: Breast cancer, Bleeding, Anemia, Tachycardia
[2017-01-09 00:36] LABS: BASO % 0.3 % (0.0-2.0); EOS # 0.1 K/uL (0.0-0.7); EOS % 1.2 % (0.0-4.0); HEMATOCRIT 26.8 % (34.0-47.0); LYMPH # 0.9 K/uL (1.0-4.3); LYMPH % 6.8 % (20.0-40.0); MEAN CELL VOLUME 68.9 fL (81.0-99.0); MEAN CORPUSCULAR HEMOGLOBIN 21.3 pg (27.0-31.0); MEAN CORPUSCULAR HGB CONC 30.9 g/dL (33.0-37.0); MEAN PLATELET VOLUME 8.7 fL (7.2-11.7); MONO # 0.4 K/uL (0.0-0.8); MONO % 3.4 % (0.0-10.0); PLATELET COUNT 408 K/uL (130-400); RED CELL DISTRIBUTION WIDTH 25.5 % (11.5-14.5); WHITE BLOOD COUNT 12.7 K/uL (4.8-10.8)
[2017-01-09 00:39] LABS: INR 1.2
[2017-01-09 00:51] LABS: ALB/GLOB RATIO 0.7 (1.0-2.1); ALKALINE PHOSPHATASE 108 U/L (38-126); ALT/SGPT 19 U/L (9-52); AST/SGOT 22 U/L (14-36); BILIRUBIN,TOTAL 0.1 mg/dL (0.2-1.3); BLOOD UREA NITROGEN 13 mg/dL (7-17); CALCIUM 8.7 mg/dl (8.6-10.4); CARBON DIOXIDE 23 mmol/L (22-30); CHLORIDE 100 mmol/L (98-107); GFR AFRICAN-AMERICAN > 60; GLUCOSE,RANDOM 161 mg/dL (65-105); POTASSIUM 4.2 mmol/L (3.6-5.2); SODIUM 134 mmol/L (132-148); TOTAL PROTEIN 7.4 g/dL (6.3-8.3)
--- NOTE | 2017-01-09 01:33 | CP.PCM.CON ---
History of Present Illness - History of Present Illness History of Present Illness: General Surgery Consult Re: Bleeding L breast mass HPI: 51F well known to surgical service presented to ED with bleeding from left breast tumor since approx 9:30pm. Patient has had prior episodes of same, was seen by the surgery team during prior admission, given surgicel to apply to stop bleeding. This has not worked this time, and she has had a large amount of bleeding from area. PMH: rheumatoid arthritis, anxiety, vertigo, breast CA PSH: C section x 2, D&C Meds: See MAR Allergies: Cipro, ibuprofren, Penicillins, Benadryl Review of Systems - Review of Systems All systems: reviewed and no additional remarkable complaints except (as per HPI ) Past Patient History - Infectious Disease Hx of Infectious Diseases: None - Past Medical History & Family History Past Medical History?: Yes - Past Social History Smoking Status: Never Smoked - CARDIAC Hx Cardiac Disorders: No - PULMONARY Hx Respiratory Disorders: No - NEUROLOGICAL Hx Neurological Disorder: No - HEENT Hx HEENT Problems: No - RENAL Hx Chronic Kidney Disease: No - ENDOCRINE/METABOLIC Hx Endocrine Disorders: No - HEMATOLOGICAL/ONCOLOGICAL Hx Anemia: Yes - INTEGUMENTARY Hx Dermatological Problems: Yes Other/Comment: left upper chest mass - MUSCULOSKELETAL/RHEUMATOLOGICAL Hx Arthritis: Yes (severe athritis) Hx Rheumatoid Arthritis: Yes - GASTROINTESTINAL Hx Gastrointestinal Disorders: No - GENITOURINARY/GYNECOLOGICAL Other/Comment: menopausal - PSYCHIATRIC Hx Anxiety: Yes Hx Substance Use: No - SURGICAL HISTORY Hx Surgeries: Yes Hx Section: Yes (x2) Other/Comment: d&c - ANESTHESIA Hx Anesthesia: Yes Hx Anesthesia Reactions: No Meds Allergies/Adverse Reactions: Allergies Allergy/AdvReac Type Severity Reaction Status Date / Time ciprofloxacin [From Cipro] Allergy SWELLING Verified 11/09/16 18:41 ibuprofen Allergy Verified 12/18/16 17:32 magnesium Allergy CONGESTION Verified 11/09/16 18:41 Penicillins Allergy SWELLING Verified 11/09/16 18:41 diphenhydramine AdvReac numbness Verified 11/09/16 18:41 [From Benadryl] on tongue and throath Physical Exam - Constitutional Appears: Non-toxic, Other (anxious) - Head Exam Head Exam: ATRAUMATIC, NORMOCEPHALIC - Eye Exam Eye Exam: EOMI. absent: Scleral icterus - ENT Exam ENT Exam: Mucous Membranes Moist - Respiratory Exam Respiratory Exam: NORMAL BREATHING PATTERN. absent: Respiratory Distress - Cardiovascular Exam Cardiovascular Exam: Tachycardia, +S1, +S2 - GI/Abdominal Exam GI & Abdominal Exam: Soft. absent: Distended, Tenderness - Extremities Exam Extremities exam: Positive for: normal capillary refill. Negative for: calf tenderness, pedal edema - Neurological Exam Neurological exam: Alert, Oriented x3 - Psychiatric Exam Psychiatric exam: Anxious - Skin Skin Exam: Dry, Warm - Additional Findings Additional findings: Left fungating, bleeding breast mass with most bleeding from posteriolateral aspect Results - Vital Signs Recent Vital Signs: Last Vital Signs Temp 99.9 F H 01/08/17 22:57 Pulse 144 H 01/08/17 22:57 Resp 18 01/08/17 22:57 BP 122/57 L 01/08/17 22:57 Pulse Ox 100 01/08/17 23:20 - Labs Result Diagrams: 01/09/17 00:27 01/09/17 00:27 Labs: Laboratory Results - last 24 hr 01/09/17 01/09/17 01/09/17 00:27 00:27 00:27 WBC 12.7 H D RBC 3.89 Hgb 8.3 L Hct 26.8 L MCV 68.9 L MCH 21.3 L MCHC 30.9 L RDW 25.5 H Plt Count 408 H D MPV 8.7 Neut % (Auto) 88.3 H Lymph % (Auto) 6.8 L [place] % (Auto) 3.4 Eos % (Auto) 1.2 Baso % (Auto) 0.3 Neut # 11.2 H Lymph # 0.9 L [place] # 0.4 Eos # 0.1 Baso # 0.0 PT 13.1 H INR 1.2 APTT 29 Sodium 134 Potassium 4.2 Chloride 100 Carbon Dioxide 23 Anion Gap 16 BUN 13 Creatinine 0.3 L Est GFR ( Amer) > 60 Est GFR (Non-Af Amer) > 60 Random Glucose 161 H Calcium 8.7 Total Bilirubin 0.1 L AST 22 ALT 19 Alkaline Phosphatase 108 Troponin I < 0.0120 Total Protein 7.4 Albumin 3.1 L Globulin 4.2 H Albumin/Globulin Ratio 0.7 L Assessment & Plan - Assessment and Plan (Free Text) Assessment: 51F with stage 4 breast CA with large bleeding mass on L breast Plan: IVF Transfuse as needed for Hgb < 7.0 AM Labs Cautery pen ready if needed. Surgicel dressing with xeroform and kerlex gauze over the top. Pressure applied x 10 minutes. Bleeding appears to have stopped at this time. Monitor for bleeding. Will D/W Dr. Amos Perez PGY4
[2017-01-09 02:52] LABS: NEUTROPHIL 87 % (50-75); TOTAL CELLS COUNTED 100
[2017-01-09] MEDS ORDERED: LANOLIN TP PRN (06:46)
[2017-01-09] MEDS ORDERED: PRAMOXINE HCL TP PRN (06:46)
[2017-01-09] MEDS ORDERED: PETROLATUM WHITE TP PRN (06:46)
--- NOTE | 2017-01-09 09:49 | RAD ---
PROCEDURE: CHEST RADIOGRAPH, 1 VIEW HISTORY: bleeding COMPARISON: Comparison made with chest radiograph 04/28/[address] scan of the abdomen and pelvis dated 11/06/2016. . . FINDINGS: LUNGS: Small nodule right lower lobe of less well seen on this exam compared to high-resolution CT scan. PLEURA: No pneumothorax or pleural fluid seen. CARDIOVASCULAR: Normal. OSSEOUS STRUCTURES: Mild multilevel degenerative spondylosis of the thoracic spine. Previously noted infiltrative lesion the T8 segment is not appreciated on this study compared to high-resolution CT scan. VISUALIZED UPPER ABDOMEN: Normal. OTHER FINDINGS: Re- demonstrated is a apparent left breast mass which overlies the axillary region. Previously noted left-sided effusion minor left basilar atelectasis resolved. IMPRESSION: No acute infiltrates. Small nodule right lung base poorly seen compared to high-resolution CT scan. Apparent resolution small left-sided effusion and minor left basilar atelectasis Large left breast mass.
[2017-01-09] MEDS ORDERED: FERROUS SULFATE 324 MG PO SCH (10:00)
[2017-01-09] MEDS ORDERED: Vitamins A & D Oint UD Foilpak EXT PRN (10:15)
[2017-01-09] MEDS: Ferrous Sulfate 300 mg/5 mL Liq UD PO SCH (10:58)
[2017-01-09] MEDS: Saccharomyces Boulardi 250 mg Cap PO SCH ×2 (10:58→17:35)
[2017-01-09] MEDS ORDERED: Sodium Chloride 0.9% 1,000 ML ONE (11:01)
[2017-01-09] MEDS: Sodium Chloride 0.9% 1,000 ML IV SCH ×2 (11:02→22:37)
--- NOTE | 2017-01-09 13:38 | CP.PCM.HP ---
History of Present Illness - History of Present Illness History of Present Illness: Patient MARGARITA for evaluation of bleeding from left breast tumor since approx 9: 30pm. Patient has had prior episodes of same, was seen by Dr. Trinidad & her surgery team during prior admission, given surgicel to apply. However she states it has not worked, and she has had a large amount of bleeding from area. Present on Admission - Present on Admission Any Indicators Present on Admission: No History of DVT/PE: No History of Uncontrolled Diabetes: No Urinary Catheter: No Decubitus Ulcer Present: No Review of Systems - Review of Systems All systems: reviewed and no additional remarkable complaints except (As per HPI ) Past Patient History - Infectious Disease Hx of Infectious Diseases: None - Past Medical History & Family History Past Medical History?: Yes - Past Social History Smoking Status: Never Smoked - CARDIAC Hx Cardiac Disorders: No - PULMONARY Hx Respiratory Disorders: No - NEUROLOGICAL Hx Neurological Disorder: No - HEENT Hx HEENT Problems: No - RENAL Hx Chronic Kidney Disease: No - ENDOCRINE/METABOLIC Hx Endocrine Disorders: No - HEMATOLOGICAL/ONCOLOGICAL Hx Anemia: Yes - INTEGUMENTARY Hx Dermatological Problems: Yes Other/Comment: left upper chest mass - MUSCULOSKELETAL/RHEUMATOLOGICAL Hx Arthritis: Yes (severe athritis) Hx Rheumatoid Arthritis: Yes - GASTROINTESTINAL Hx Gastrointestinal Disorders: No - GENITOURINARY/GYNECOLOGICAL Other/Comment: menopausal - PSYCHIATRIC Hx Anxiety: Yes Hx Substance Use: No - SURGICAL HISTORY Hx Surgeries: Yes Hx Section: Yes (x2) Other/Comment: d&c - ANESTHESIA Hx Anesthesia: Yes Hx Anesthesia Reactions: No Meds Allergies/Adverse Reactions: Allergies Allergy/AdvReac Type Severity Reaction Status Date / Time ciprofloxacin [From Cipro] Allergy SWELLING Verified 11/09/16 18:41 ibuprofen Allergy Verified 12/18/16 17:32 magnesium Allergy CONGESTION Verified 11/09/16 18:41 Penicillins Allergy SWELLING Verified 11/09/16 18:41 diphenhydramine AdvReac numbness Verified 11/09/16 18:41 [From Benadryl] on tongue and throath Physical Exam - Head Exam Head Exam: NORMAL INSPECTION - Eye Exam Eye Exam: Normal appearance - ENT Exam ENT Exam: Mucous Membranes Moist - Respiratory Exam Respiratory Exam: Clear to Auscultation Bilateral, NORMAL BREATHING PATTERN - Cardiovascular Exam Cardiovascular Exam: REGULAR RHYTHM, +S1, +S2 - GI/Abdominal Exam GI & Abdominal Exam: Normal Bowel Sounds, Soft - Extremities Exam Extremities exam: Positive for: normal inspection - Psychiatric Exam Psychiatric exam: Normal Affect, Normal Mood Results - Vital Signs Recent Vital Signs: Last Vital Signs Temp 98.7 F 01/09/17 10:54 Pulse 96 H 01/09/17 10:54 Resp 15 01/09/17 10:54 BP 98/58 L 01/09/17 10:54 Pulse Ox 100 01/09/17 10:54 - Labs Result Diagrams: 01/09/17 14:13 01/09/17 14:13 Assessment & Plan (1) Anemia Status: Acute (2) Bleeding from breast Status: Acute (3) Breast cancer Status: Acute - Assessment and Plan (Free Text) Assessment: Surgery consult Wound care Transfuse 2 units PRBCs Oncology consult Pain control DVT GI prophylaxis
[2017-01-09 14:18] LABS: BASO % 0.2 % (0.0-2.0); EOS # 0.1 K/uL (0.0-0.7); EOS % 1.4 % (0.0-4.0); HEMATOCRIT 23.8 % (34.0-47.0); LYMPH # 1.1 K/uL (1.0-4.3); LYMPH % 17.2 % (20.0-40.0); MEAN CORPUSCULAR HEMOGLOBIN 23.2 pg (27.0-31.0); MEAN CORPUSCULAR HGB CONC 31.7 g/dL (33.0-37.0); MEAN PLATELET VOLUME 8.4 fL (7.2-11.7); MONO # 0.4 K/uL (0.0-0.8); MONO % 6.3 % (0.0-10.0); RED CELL DISTRIBUTION WIDTH 23.3 % (11.5-14.5)
[2017-01-09 14:19] LABS: MEAN CELL VOLUME 73.2 fL (81.0-99.0); WHITE BLOOD COUNT 6.2 K/uL (4.8-10.8)
[2017-01-09 14:25] LABS: CHLORIDE 106 mmol/L (98-107); POTASSIUM 3.9 mmol/L (3.6-5.2); SODIUM 136 mmol/L (132-148)
[2017-01-09 14:26] LABS: INR 1.2
[2017-01-09 14:28] LABS: BLOOD UREA NITROGEN 9 mg/dL (7-17); CARBON DIOXIDE 22 mmol/L (22-30); GFR AFRICAN-AMERICAN > 60
[2017-01-09 14:29] LABS: CALCIUM 7.7 mg/dl (8.6-10.4); GLUCOSE,RANDOM 108 mg/dL (65-105)
[2017-01-09] MEDS: Vitamins A & D Oint UD Foilpak EXT PRN (17:37)
[2017-01-10] MEDS: Sodium Chloride 0.9% 1,000 ML IV SCH ×2 (10:25→21:20)
[2017-01-10] MEDS: Vitamins A & D Oint UD Foilpak EXT PRN (10:54)
[2017-01-10] MEDS: Ferrous Sulfate 300 mg/5 mL Liq UD PO SCH (11:00)
[2017-01-10] MEDS: Saccharomyces Boulardi 250 mg Cap PO SCH ×3 (11:00→18:11)
--- NOTE | 2017-01-10 16:24 | CP.PCM.PN ---
Subjective - Date & Time of Evaluation Date of Evaluation: 01/10/17 Time of Evaluation: 16:24 - Subjective Subjective: Patient seen and examined No reported bleeding from the breast mass Objective - Vital Signs/Intake and Output Vital Signs (last 24 hours): Temp Pulse Resp BP Pulse Ox 98.2 F 87 18 106/64 100 01/10/17 07:30 01/10/17 12:13 01/10/17 07:30 01/10/17 07:30 01/10/17 07:30 Intake and Output: 01/10/17 01/10/17 06:59 18:59 Intake Total 1105 1000 Balance 1105 1000 - Medications Medications: Current Medications Acetaminophen (Tylenol 325mg Tab) 325 mg PO Q4 PRN PRN Reason: pain Ferrous Sulfate (Feosol Liq) 300 mg PO DAILY [facility] Last Admin: 01/10/17 11:00 Dose: Not Given Sodium Chloride (Sodium Chloride 0.9%) 1,000 mls @ 75 mls/hr IV .[id number] [facility] Last Admin: 01/10/17 10:25 Dose: Not Given Ondansetron HCl (Zofran Inj) 4 mg IVP Q6 PRN PRN Reason: nausea and vomiting Saccharomyces Boulardii (Florastor) 250 mg PO TID [facility] Last Admin: 01/10/17 13:33 Dose: Not Given Vitamin A (Vitamin A & D Oint Ud Foilpak) 1 ea EXT BID PRN PRN Reason: Dry skin Last Admin: 01/10/17 10:54 Dose: 1 ea - Labs Labs: 01/09/17 14:13 01/09/17 14:13 PT 13.8 SECONDS (9.7-12.2) H 01/09/17 14:13 INR 1.2 01/09/17 14:13 APTT 29 SECONDS (21-34) 01/09/17 14:13 - Head Exam Head Exam: NORMAL INSPECTION - Eye Exam Eye Exam: Normal appearance - ENT Exam ENT Exam: Mucous Membranes Moist - Respiratory Exam Respiratory Exam: Clear to Ausculation Bilateral, NORMAL BREATHING PATTERN - Cardiovascular Exam Cardiovascular Exam: REGULAR RHYTHM, +S1, +S2 - GI/Abdominal Exam GI & Abdominal Exam: Soft, Hypoactive Bowel Sounds - Extremities Exam Extremities Exam: absent: Normal Inspection - Skin Additional comments: Left breast mass with the dressing Assessment and Plan (1) Malnutrition Status: Acute (2) Anemia Status: Acute (3) Bleeding from breast Status: Acute (4) Breast cancer Status: Acute (5) Breast mass, left Status: Acute - Assessment and Plan (Free Text) Assessment: Transfuse 1 unit PRBC Wound care Oncology consult Pain control Repeat CBC in the morning DVT GI prophylaxis
--- NOTE | 2017-01-10 19:02 | CARD ---
APPROVED REPORT EKG Measurement Heart [id number] <Conclusion> Sinus tachycardia Otherwise normal ECG
[2017-01-11 07:41] LABS: HEMATOCRIT 25.9 % (34.0-47.0); MEAN CELL VOLUME 75.1 fL (81.0-99.0); MEAN CORPUSCULAR HEMOGLOBIN 24.3 pg (27.0-31.0); MEAN CORPUSCULAR HGB CONC 32.3 g/dL (33.0-37.0); MEAN PLATELET VOLUME 8.6 fL (7.2-11.7); RED CELL DISTRIBUTION WIDTH 22.9 % (11.5-14.5); WHITE BLOOD COUNT 7.8 K/uL (4.8-10.8)
[2017-01-11 07:49] LABS: INR 1.1
[2017-01-11 07:55] LABS: CHLORIDE 108 mmol/L (98-107); POTASSIUM 3.3 mmol/L (3.6-5.2); SODIUM 137 mmol/L (132-148)
[2017-01-11 07:57] LABS: GFR AFRICAN-AMERICAN > 60
[2017-01-11 07:58] LABS: ALB/GLOB RATIO 0.6 (1.0-2.1); ALKALINE PHOSPHATASE 83 U/L (38-126); ALT/SGPT 20 U/L (9-52); AST/SGOT 18 U/L (14-36); BILIRUBIN,TOTAL 0.4 mg/dL (0.2-1.3); BLOOD UREA NITROGEN 6 mg/dL (7-17); CARBON DIOXIDE 24 mmol/L (22-30); GLUCOSE,RANDOM 82 mg/dL (65-105)
[2017-01-11] MEDS: Ferrous Sulfate 300 mg/5 mL Liq UD PO SCH (11:00)
[2017-01-11] MEDS: Saccharomyces Boulardi 250 mg Cap PO SCH ×3 (11:00→17:14)
[2017-01-11] MEDS: Sodium Chloride 0.9% 1,000 ML IV SCH ×2 (13:00→15:00)
--- NOTE | 2017-01-11 14:49 | CP.PCM.PN ---
Subjective - Date & Time of Evaluation Date of Evaluation: 01/11/17 Time of Evaluation: 14:49 - Subjective Subjective: Patient seen and examined Feels better today Denies any bleeding from the breast mass Reports orders smell from the wound Objective - Vital Signs/Intake and Output Vital Signs (last 24 hours): Temp Pulse Resp BP Pulse Ox 98.1 F 68 20 110/67 96 01/11/17 08:25 01/11/17 08:25 01/11/17 08:25 01/11/17 08:25 01/11/17 08:25 Intake and Output: 01/11/17 01/11/17 06:59 18:59 Intake Total 720 Balance 720 - Labs Labs: 01/11/17 07:34 01/11/17 07:34 PT 12.6 SECONDS (9.7-12.2) H 01/11/17 07:34 INR 1.1 01/11/17 07:34 APTT 29 SECONDS (21-34) 01/11/17 07:34 - Head Exam Head Exam: NORMAL INSPECTION - Eye Exam Eye Exam: Normal appearance - ENT Exam ENT Exam: Mucous Membranes Moist - Respiratory Exam Respiratory Exam: Clear to Ausculation Bilateral, NORMAL BREATHING PATTERN - Cardiovascular Exam Cardiovascular Exam: REGULAR RHYTHM, +S1, +S2 - GI/Abdominal Exam GI & Abdominal Exam: Soft, Normal Bowel Sounds - Extremities Exam Extremities Exam: Normal Inspection Assessment and Plan (1) Anemia Status: Acute (2) Bleeding from breast Status: Acute (3) Breast cancer Status: Acute (4) Malnutrition Status: Acute - Assessment and Plan (Free Text) Plan: Dr. Holt to evaluate patient for adjunctive chemotherapy Patient agrees she will need Port-A-Cath placement We will request surgery follow-up for wound inspection this patient reports orders drainage from wound Pain control Follow CBC DVT GI prophylaxis Megace Encourage oral intake
[2017-01-11] MEDS ORDERED: Potassium Chloride 20 mEq ER Tab PO ONE (15:30)
[2017-01-12] MEDS: Sodium Chloride 0.9% 1,000 ML IV SCH ×2 (03:15→13:40)
--- NOTE | 2017-01-12 08:49 | CP.PCM.CON ---
History of Present Illness - History of Present Illness History of Present Illness: 51 year old bed bound female with a history of rheumatoid arthritis, stage IV ER /MS negative, HER 2 positive breast cancer diagnosed 10/2016, admitted with recurrent bleeding breast mass. The patient reports to rapidly enlarging breast mass in the last 3 months. She initially noticed this mass 1 year ago but was not concerned about it until it started to grow. She notes to oozing of blood from the mass. She also has had a diminished appetite with weightloss. CT chest revealed axillary, lung, bone lesions. I have seen her several times in the past with discussions of systemic chemotherapy with her and her family. She has been hesitant to start systemic treatment due to possibility of side effects. Past medical history: rheumatoid arthritis Past surgical history: Family history: Denies hematologic and oncologic problems Social history: Denies tobacco, alcohol,and illicit drug use. Allergies: Several, see allergy list. Review of systems: All remaining review of systems including HEENT, cardiovascular, respiratory, gastrointestinal, genitourinary, musculoskeletal, dermatologic, neurologic, and psychiatric are negative unless mentioned in the HPI. Past Patient History - Infectious Disease Hx of Infectious Diseases: None - Past Medical History & Family History Past Medical History?: Yes - Past Social History Smoking Status: Never Smoked - CARDIAC Hx Cardiac Disorders: No - PULMONARY Hx Respiratory Disorders: No - NEUROLOGICAL Hx Neurological Disorder: No - HEENT Hx HEENT Problems: No - RENAL Hx Chronic Kidney Disease: No - ENDOCRINE/METABOLIC Hx Endocrine Disorders: No - HEMATOLOGICAL/ONCOLOGICAL Hx Anemia: Yes - INTEGUMENTARY Hx Dermatological Problems: Yes Other/Comment: left upper chest mass - MUSCULOSKELETAL/RHEUMATOLOGICAL Hx Arthritis: Yes (severe athritis) Hx Rheumatoid Arthritis: Yes - GASTROINTESTINAL Hx Gastrointestinal Disorders: No - GENITOURINARY/GYNECOLOGICAL Other/Comment: menopausal - PSYCHIATRIC Hx Anxiety: Yes Hx Substance Use: No - SURGICAL HISTORY Hx Surgeries: Yes Hx Section: Yes (x2) Other/Comment: d&c - ANESTHESIA Hx Anesthesia: Yes Hx Anesthesia Reactions: No Meds Allergies/Adverse Reactions: Allergies Allergy/AdvReac Type Severity Reaction Status Date / Time ciprofloxacin [From Cipro] Allergy SWELLING Verified 11/09/16 18:41 ibuprofen Allergy Verified 12/18/16 17:32 magnesium Allergy CONGESTION Verified 11/09/16 18:41 Penicillins Allergy SWELLING Verified 11/09/16 18:41 diphenhydramine AdvReac numbness Verified 11/09/16 18:41 [From Benadryl] on tongue and throath - Medications Medications: Current Medications Acetaminophen (Tylenol 325mg Tab) 325 mg PO Q4 PRN PRN Reason: pain Ferrous Sulfate (Feosol Liq) 300 mg PO DAILY [facility] Last Admin: 01/11/17 11:00 Dose: Not Given Sodium Chloride (Sodium Chloride 0.9%) 1,000 mls @ 75 mls/hr IV .[id number] [facility] Last Admin: 01/12/17 03:15 Dose: 75 mls/hr Ondansetron HCl (Zofran Inj) 4 mg IVP Q6 PRN PRN Reason: nausea and vomiting Saccharomyces Boulardii (Florastor) 250 mg PO TID [facility] Last Admin: 01/11/17 17:14 Dose: Not Given Vitamin A (Vitamin A & D Oint Ud Foilpak) 1 ea EXT BID PRN PRN Reason: Dry skin Last Admin: 01/10/17 10:54 Dose: 1 ea Physical Exam - Head Exam Head Exam: ATRAUMATIC - Eye Exam Eye Exam: Normal appearance - ENT Exam ENT Exam: Mucous Membranes Dry - Respiratory Exam Respiratory Exam: NORMAL BREATHING PATTERN - Cardiovascular Exam Cardiovascular Exam: +S1, +S2 - GI/Abdominal Exam GI & Abdominal Exam: Normal Bowel Sounds Results - Vital Signs Recent Vital Signs: Last Vital Signs Temp 98.4 F 01/12/17 07:10 Pulse 89 01/12/17 07:10 Resp 18 01/12/17 07:10 BP 109/70 01/12/17 07:10 Pulse Ox 100 01/12/17 07:10 - Labs Result Diagrams: 01/11/17 07:34 01/11/17 07:34 Assessment & Plan (1) Anemia Assessment and Plan: iron deficiency from chronic bleeding from breast tumor will start IV ferrlecit Status: Acute (2) Breast cancer Assessment and Plan: stage IV I had an at length discussion with her about systemic chemotherapy; she cont. to be hesistant about this she would like to think about it some more with her family I will f/u with her tomorrow Thank you for this interesting consult. Status: Acute
[2017-01-12] MEDS: Ferric Sodium Gluconat Complex 62.5 mg/5 ml Vial IVPB SCH (09:27)
[2017-01-12] MEDS: Ferrous Sulfate 300 mg/5 mL Liq UD PO SCH (09:28)
[2017-01-12] MEDS: Saccharomyces Boulardi 250 mg Cap PO SCH ×3 (09:28→17:38)
[2017-01-12] MEDS: Vitamins A & D Oint UD Foilpak EXT PRN (11:32)
[2017-01-12 11:33] LABS: HEMATOCRIT 27.1 % (34.0-47.0); MEAN CELL VOLUME 75.8 fL (81.0-99.0); MEAN CORPUSCULAR HEMOGLOBIN 24.2 pg (27.0-31.0); MEAN CORPUSCULAR HGB CONC 31.9 g/dL (33.0-37.0); MEAN PLATELET VOLUME 8.7 fL (7.2-11.7); RED CELL DISTRIBUTION WIDTH 23.3 % (11.5-14.5)
[2017-01-12 11:43] LABS: CHLORIDE 107 mmol/L (98-107); POTASSIUM 3.7 mmol/L (3.6-5.2); SODIUM 139 mmol/L (132-148)
[2017-01-12 11:45] LABS: GFR AFRICAN-AMERICAN > 60
[2017-01-12 11:46] LABS: BLOOD UREA NITROGEN 4 mg/dL (7-17); CALCIUM 8.1 mg/dl (8.6-10.4); CARBON DIOXIDE 24 mmol/L (22-30); GLUCOSE,RANDOM 82 mg/dL (65-105)
--- NOTE | 2017-01-12 16:33 | CP.PCM.PN ---
Subjective - Date & Time of Evaluation Date of Evaluation: 01/12/17 Time of Evaluation: 14:40 - Subjective Subjective: No complaints, family at bedside Objective - Vital Signs/Intake and Output Vital Signs (last 24 hours): Temp Pulse Resp BP Pulse Ox 98.4 F 89 20 107/65 100 01/12/17 16:27 01/12/17 16:27 01/12/17 16:27 01/12/17 16:27 01/12/17 16:27 Intake and Output: 01/12/17 01/12/17 06:59 18:59 Intake Total 700 900 Balance 700 900 - Medications Medications: Current Medications Acetaminophen (Tylenol 325mg Tab) 325 mg PO Q4 PRN PRN Reason: pain Ferric Sodium Gluconate Complex (Ferrlecit) 125 mg IVPB DAILY [facility] Stop: 01/20/17 10:01 Last Admin: 01/12/17 09:27 Dose: 125 mg Ferrous Sulfate (Feosol Liq) 300 mg PO DAILY [facility] Last Admin: 01/12/17 09:28 Dose: Not Given Sodium Chloride (Sodium Chloride 0.9%) 1,000 mls @ 75 mls/hr IV .[id number] [facility] Last Admin: 01/12/17 13:40 Dose: Not Given Ondansetron HCl (Zofran Inj) 4 mg IVP Q6 PRN PRN Reason: nausea and vomiting Saccharomyces Boulardii (Florastor) 250 mg PO TID [facility] Last Admin: 01/12/17 13:29 Dose: Not Given Vitamin A (Vitamin A & D Oint Ud Foilpak) 1 ea EXT BID PRN PRN Reason: Dry skin Last Admin: 01/12/17 11:32 Dose: 1 ea - Labs Labs: 01/12/17 11:18 01/12/17 11:18 PT 12.6 SECONDS (9.7-12.2) H 01/11/17 07:34 INR 1.1 01/11/17 07:34 APTT 29 SECONDS (21-34) 01/11/17 07:34 - Head Exam Head Exam: ATRAUMATIC, NORMAL INSPECTION - ENT Exam ENT Exam: Mucous Membranes Dry - Respiratory Exam Respiratory Exam: NORMAL BREATHING PATTERN - Cardiovascular Exam Cardiovascular Exam: +S1, +S2 - GI/Abdominal Exam GI & Abdominal Exam: Normal Bowel Sounds Assessment and Plan (1) Anemia Assessment & Plan: iron deficiency from chronic bleeding from breast mass on IV iron Status: Acute (2) Breast cancer Assessment & Plan: stage IV ER/RI negative, HER2 positive declined systemic treatment Status: Acute
--- NOTE | 2017-01-12 19:30 | CP.PCM.PN ---
Subjective - Date & Time of Evaluation Date of Evaluation: 01/12/17 Time of Evaluation: 19:30 - Subjective Subjective: Patient seen and examined No events overnight Patient refused chemotherapy Objective - Vital Signs/Intake and Output Vital Signs (last 24 hours): Temp Pulse Resp BP Pulse Ox 98.4 F 86 20 107/65 100 01/12/17 15:27 01/12/17 16:00 01/12/17 15:27 01/12/17 15:27 01/12/17 15:27 Intake and Output: 01/12/17 01/13/17 18:59 06:59 Intake Total 900 Balance 900 - Medications Medications: Current Medications Acetaminophen (Tylenol 325mg Tab) 325 mg PO Q4 PRN PRN Reason: pain Ferric Sodium Gluconate Complex (Ferrlecit) 125 mg IVPB DAILY [facility] Stop: 01/20/17 10:01 Last Admin: 01/12/17 09:27 Dose: 125 mg Ferrous Sulfate (Feosol Liq) 300 mg PO DAILY [facility] Last Admin: 01/12/17 09:28 Dose: Not Given Sodium Chloride (Sodium Chloride 0.9%) 1,000 mls @ 75 mls/hr IV .[id number] [facility] Last Admin: 01/12/17 13:40 Dose: Not Given Ondansetron HCl (Zofran Inj) 4 mg IVP Q6 PRN PRN Reason: nausea and vomiting Saccharomyces Boulardii (Florastor) 250 mg PO TID [facility] Last Admin: 01/12/17 17:38 Dose: Not Given Vitamin A (Vitamin A & D Oint Ud Foilpak) 1 ea EXT BID PRN PRN Reason: Dry skin Last Admin: 01/12/17 11:32 Dose: 1 ea - Labs Labs: 01/12/17 11:18 01/12/17 11:18 PT 12.6 SECONDS (9.7-12.2) H 01/11/17 07:34 INR 1.1 01/11/17 07:34 APTT 29 SECONDS (21-34) 01/11/17 07:34 - Head Exam Head Exam: NORMAL INSPECTION - Eye Exam Eye Exam: Normal appearance - ENT Exam ENT Exam: Mucous Membranes Moist - Respiratory Exam Respiratory Exam: Clear to Ausculation Bilateral, NORMAL BREATHING PATTERN - Cardiovascular Exam Cardiovascular Exam: REGULAR RHYTHM, +S1, +S2 - GI/Abdominal Exam GI & Abdominal Exam: Soft, Normal Bowel Sounds - Extremities Exam Extremities Exam: Normal Inspection - Neurological Exam Neurological Exam: Alert, Oriented x3 Assessment and Plan (1) Anemia Status: Acute (2) Bleeding from breast Status: Acute (3) Breast cancer Status: Acute (4) Malnutrition Status: Acute - Assessment and Plan (Free Text) Plan: Patient refused chemotherapy Pain control Follow CBC DVT GI prophylaxis Megace Encourage oral intake DC planning for a.m. DVT GI prophylaxis
[2017-01-13] MEDS: Sodium Chloride 0.9% 1,000 ML IV SCH (08:00)
[2017-01-13] MEDS: Saccharomyces Boulardi 250 mg Cap PO SCH ×2 (10:30→14:08)
[2017-01-13] MEDS: Ferrous Sulfate 300 mg/5 mL Liq UD PO SCH (10:30)
[2017-01-13] MEDS: Ferric Sodium Gluconat Complex 62.5 mg/5 ml Vial IVPB SCH (10:30)
--- NOTE | 2017-01-13 11:01 | CP.PCM.PN ---
Subjective - Date & Time of Evaluation Date of Evaluation: 01/13/17 Time of Evaluation: 11:24 - Subjective Subjective: PT SEEN AND EXAMINED TODAY, DENIES ANY PAIN, SOB, RESP EASY AND UNLABORED. NAD. DAUGHTER AT THE BEDSIDE. Objective - Vital Signs/Intake and Output Vital Signs (last 24 hours): Temp Pulse Resp BP Pulse Ox 98.1 F 98 H 18 117/72 99 01/13/17 08:00 01/13/17 08:00 01/13/17 08:00 01/13/17 08:00 01/13/17 08:00 Intake and Output: 01/13/17 01/13/17 06:59 18:59 Intake Total 1620 Balance 1620 - Medications Medications: Current Medications Acetaminophen (Tylenol 325mg Tab) 325 mg PO Q4 PRN PRN Reason: pain Ferric Sodium Gluconate Complex (Ferrlecit) 125 mg IVPB DAILY [facility] Stop: 01/20/17 10:01 Last Admin: 01/12/17 09:27 Dose: 125 mg Ferrous Sulfate (Feosol Liq) 300 mg PO DAILY [facility] Last Admin: 01/12/17 09:28 Dose: Not Given Sodium Chloride (Sodium Chloride 0.9%) 1,000 mls @ 75 mls/hr IV .[id number] [facility] Last Admin: 01/12/17 13:40 Dose: Not Given Ondansetron HCl (Zofran Inj) 4 mg IVP Q6 PRN PRN Reason: nausea and vomiting Saccharomyces Boulardii (Florastor) 250 mg PO TID [facility] Last Admin: 01/12/17 17:38 Dose: Not Given Vitamin A (Vitamin A & D Oint Ud Foilpak) 1 ea EXT BID PRN PRN Reason: Dry skin Last Admin: 01/12/17 11:32 Dose: 1 ea - Labs Labs: 01/12/17 11:18 01/12/17 11:18 PT 12.6 SECONDS (9.7-12.2) H 01/11/17 07:34 INR 1.1 01/11/17 07:34 APTT 29 SECONDS (21-34) 01/11/17 07:34 Assessment and Plan - Assessment and Plan (Free Text) Plan: 51 Y/O FEMALE WITH PMHX BREAST CANCER PT ADMITTED FOR BLEEDING FROM BREAST, ANEMIA DR DUKE AND DR SEGURA (SURGERY) CONSULTED PT CLEARED FOR DISCHARGE PER DR RANDALL, DR HINES, DR DUKE WOUND CARE INSTRUCTION GIVEN, PO IRON PER DR DUKE F/U W/DR GRAMAJO, DR DUKE IN THE OFFICE RETURN TO ED IF ANY WORSENING S/S AGREE, VERBALIZE UNDERSTANDING
--- NOTE | 2017-01-13 13:31 | CP.PCM.PN ---
Subjective - Date & Time of Evaluation Date of Evaluation: 01/13/17 Time of Evaluation: 10:30 - Subjective Subjective: No complaints. Objective - Vital Signs/Intake and Output Vital Signs (last 24 hours): Temp Pulse Resp BP Pulse Ox 98.1 F 98 H 18 117/72 99 01/13/17 08:00 01/13/17 08:00 01/13/17 08:00 01/13/17 08:00 01/13/17 08:00 Intake and Output: 01/13/17 01/13/17 06:59 18:59 Intake Total 1620 Balance 1620 - Medications Medications: Current Medications Acetaminophen (Tylenol 325mg Tab) 325 mg PO Q4 PRN PRN Reason: pain Ferric Sodium Gluconate Complex (Ferrlecit) 125 mg IVPB DAILY [facility] Stop: 01/20/17 10:01 Last Admin: 01/13/17 10:30 Dose: 125 mg Ferrous Sulfate (Feosol Liq) 300 mg PO DAILY [facility] Last Admin: 01/13/17 10:30 Dose: Not Given Sodium Chloride (Sodium Chloride 0.9%) 1,000 mls @ 75 mls/hr IV .[id number] [facility] Last Admin: 01/13/17 08:00 Dose: 75 mls/hr Ondansetron HCl (Zofran Inj) 4 mg IVP Q6 PRN PRN Reason: nausea and vomiting Saccharomyces Boulardii (Florastor) 250 mg PO TID [facility] Last Admin: 01/13/17 10:30 Dose: Not Given Vitamin A (Vitamin A & D Oint Ud Foilpak) 1 ea EXT BID PRN PRN Reason: Dry skin Last Admin: 01/12/17 11:32 Dose: 1 ea - Labs Labs: 01/12/17 11:18 01/12/17 11:18 PT 12.6 SECONDS (9.7-12.2) H 01/11/17 07:34 INR 1.1 01/11/17 07:34 APTT 29 SECONDS (21-34) 01/11/17 07:34 - Head Exam Head Exam: ATRAUMATIC - Eye Exam Eye Exam: Normal appearance - ENT Exam ENT Exam: Mucous Membranes Dry - Respiratory Exam Respiratory Exam: NORMAL BREATHING PATTERN - Cardiovascular Exam Cardiovascular Exam: +S1, +S2 - GI/Abdominal Exam GI & Abdominal Exam: Normal Bowel Sounds Assessment and Plan (1) Anemia Assessment & Plan: iron deficiency s/p IV iron D/C with PO iron Status: Acute (2) Breast cancer Assessment & Plan: stage IV deferred treatment Status: Acute
[2017-01-13] MEDS: Vitamins A & D Oint UD Foilpak EXT PRN (14:17)
--- NOTE | 2017-01-13 14:42 | CP.PCM.PN ---
Subjective - Date & Time of Evaluation Date of Evaluation: 01/13/17 Time of Evaluation: 14:42 Objective - Vital Signs/Intake and Output Vital Signs (last 24 hours): Temp Pulse Resp BP Pulse Ox 98.1 F 98 H 18 117/72 99 01/13/17 08:00 01/13/17 08:00 01/13/17 08:00 01/13/17 08:00 01/13/17 08:00 Intake and Output: 01/13/17 01/13/17 06:59 18:59 Intake Total 1620 720 Balance 1620 720 - Medications Medications: Current Medications Acetaminophen (Tylenol 325mg Tab) 325 mg PO Q4 PRN PRN Reason: pain Ferric Sodium Gluconate Complex (Ferrlecit) 125 mg IVPB DAILY [facility] Stop: 01/20/17 10:01 Last Admin: 01/13/17 10:30 Dose: 125 mg Ferrous Sulfate (Feosol Liq) 300 mg PO DAILY [facility] Last Admin: 01/13/17 10:30 Dose: Not Given Sodium Chloride (Sodium Chloride 0.9%) 1,000 mls @ 75 mls/hr IV .[id number] [facility] Last Admin: 01/13/17 08:00 Dose: 75 mls/hr Ondansetron HCl (Zofran Inj) 4 mg IVP Q6 PRN PRN Reason: nausea and vomiting Saccharomyces Boulardii (Florastor) 250 mg PO TID [facility] Last Admin: 01/13/17 14:08 Dose: Not Given Vitamin A (Vitamin A & D Oint Ud Foilpak) 1 ea EXT BID PRN PRN Reason: Dry skin Last Admin: 01/13/17 14:17 Dose: 1 ea - Labs Labs: 01/12/17 11:18 01/12/17 11:18 PT 12.6 SECONDS (9.7-12.2) H 01/11/17 07:34 INR 1.1 01/11/17 07:34 APTT 29 SECONDS (21-34) 01/11/17 07:34 Assessment and Plan (1) Anemia Status: Acute (2) Bleeding from breast Status: Acute (3) Breast cancer Status: Acute (4) Malnutrition Status: Acute
[2017-01-13 15:56] VITALS: BP 125/72; PULSE 99; RESP 20; TEMP 98.4
[2017-01-14 12:20] VITALS: O2SAT 100
--- NOTE | 2017-01-17 02:19 | CP.PCM.DIS ---
Provider - Provider Date of Admission: 01/09/17 01:41 Attending physician: Fawad Acosta MD Time Spent in preparation of Discharge (in minutes): 25 Diagnosis - Discharge Diagnosis (1) Anemia Status: Acute (2) Bleeding from breast Status: Acute (3) Breast cancer Status: Acute (4) Malnutrition Status: Acute Hospital Course - Lab Results Lab Results: Most Recent Lab Values WBC 6.0 K/uL (4.8-10.8) 01/12/17 11:18 RBC 3.57 Mil/uL (3.80-5.20) L 01/12/17 11:18 Hgb 8.6 g/dL (11.0-16.0) L 01/12/17 11:18 Hct 27.1 % (34.0-47.0) L 01/12/17 11:18 MCV 75.8 fL (81.0-99.0) L 01/12/17 11:18 MCH 24.2 pg (27.0-31.0) L 01/12/17 11:18 MCHC 31.9 g/dL (33.0-37.0) L 01/12/17 11:18 RDW 23.3 % (11.5-14.5) H 01/12/17 11:18 Plt Count 268 K/uL (130-400) 01/12/17 11:18 MPV 8.7 fL (7.2-11.7) 01/12/17 11:18 Neut % (Auto) 74.9 % (50.0-75.0) 01/09/17 14:13 Lymph % (Auto) 17.2 % (20.0-40.0) L 01/09/17 14:13 [place] % (Auto) 6.3 % (0.0-10.0) 01/09/17 14:13 Eos % (Auto) 1.4 % (0.0-4.0) 01/09/17 14:13 Baso % (Auto) 0.2 % (0.0-2.0) 01/09/17 14:13 Neut # 4.7 K/uL (1.8-7.0) 01/09/17 14:13 Lymph # 1.1 K/uL (1.0-4.3) 01/09/17 14:13 [place] # 0.4 K/uL (0.0-0.8) 01/09/17 14:13 Eos # 0.1 K/uL (0.0-0.7) 01/09/17 14:13 Baso # 0.0 K/uL (0.0-0.2) 01/09/17 14:13 Neutrophils % (Manual) 87 % (50-75) H 01/09/17 00:27 Band Neutrophils % 1 % (0-2) 01/09/17 00:27 Lymphocytes % (Manual) 8 % (20-40) L 01/09/17 00:27 Monocytes % (Manual) 4 % (0-10) 01/09/17 00:27 Platelet Estimate Normal (NORMAL) 01/09/17 00:27 Poikilocytosis (manual Moderate 01/09/17 00:27 Anisocytosis (manual) Moderate 01/09/17 00:27 PT 12.6 SECONDS (9.7-12.2) H 01/11/17 07:34 INR 1.1 01/11/17 07:34 APTT 29 SECONDS (21-34) 01/11/17 07:34 Sodium 139 mmol/L (132-148) 01/12/17 11:18 Potassium 3.7 mmol/L (3.6-5.2) 01/12/17 11:18 Chloride 107 mmol/L (98-107) 01/12/17 11:18 Carbon Dioxide 24 mmol/L (22-30) 01/12/17 11:18 Anion Gap 12 (10-20) 01/12/17 11:18 BUN 4 mg/dL (7-17) L 01/12/17 11:18 Creatinine 0.3 MG/DL (0.7-1.2) L 01/12/17 11:18 Est GFR ( Amer) > 60 01/12/17 11:18 Est GFR (Non-Af Amer) > 60 01/12/17 11:18 Random Glucose 82 mg/dL (65-105) 01/12/17 11:18 Calcium 8.1 mg/dl (8.6-10.4) L 01/12/17 11:18 Total Bilirubin 0.4 mg/dL (0.2-1.3) 01/11/17 07:34 AST 18 U/L (14-36) 01/11/17 07:34 ALT 20 U/L (9-52) 01/11/17 07:34 Alkaline Phosphatase 83 U/L (38-126) 01/11/17 07:34 Troponin I < 0.0120 ng/mL (0.00-0.120) 01/09/17 00:27 Total Protein 6.0 g/dL (6.3-8.3) L 01/11/17 07:34 Albumin 2.3 g/dL (3.5-5.0) L D 01/11/17 07:34 Globulin 3.7 gm/dL (2.2-3.9) 01/11/17 07:34 Albumin/Globulin Ratio 0.6 (1.0-2.1) L 01/11/17 07:34 Blood Type B POSITIVE 01/09/17 00:27 Antibody Screen Positive 01/09/17 00:27 Antibody Identification Anti C Anti K 01/09/17 00:27 Antibody Identification Anti C Anti K 01/09/17 00:27 - Hospital Course Hospital Course: Patient initially presented with bleeding from her breast mass. Patient was evaluated by surgery and bleeding stopped after initial packing. Patient was also evaluated by oncology for adjunctive chemotherapy which she again refused. Patient was discharged home to be followed up as outpatient by PMD and oncology. Discharge Exam - Head Exam Head Exam: ATRAUMATIC - ENT Exam ENT Exam: Mucous Membranes Moist - Respiratory Exam Respiratory Exam: Chest Wall Tenderness, Clear to PA & Lateral - Cardiovascular Exam Cardiovascular Exam: REGULAR RHYTHM, +S1, +S2 - GI/Abdominal Exam GI & Abdominal Exam: Normal Bowel Sounds - Extremities Exam Extremities exam: normal inspection Discharge Plan - Discharge Medications Prescriptions: Ferrous Sulfate [Feosol] 324 mg PO DAILY #30 ect Petrolatum,White/Lanolin [Vitamin A & D Ointment] 113 gm TP BID PRN #1 tub PRN Reason: Dry Skin - Follow Up Plan Condition: FAIR Disposition: HOME/ ROUTINE Instructions: Iron Supplements (By mouth), Anemia (DC) Additional Instructions: FOLLOW UP WITH DR Dani MARTINEZ IN THE OFFICE IN 3-5 DAYS-- CALL FOR AN APPOINTMENT FOLLOW UP WITH DR HOLT IN THE OFFICE IN 3-5 DAYS-- CALL FOR AN APPOINTMENT CONTINUE MEDS PER MED REC CLEAN WOUND WITH NS, SURGICAL DRESSING WITH XEROFOAM AND KERLEX GAUZE OVER THE TOP. CALL DR MARTINEZ'S OFFICE IF ANY FURTHER QUESTIONS Referrals: Sam Holt MD [Staff Provider] - Jocelyn Trinidad MD [Staff Provider] - Shan Martinez MD [Staff Provider] -
== END 2017-01-13 16:28 | disposition home or self-care (01) | DRG 598 ==
LOC: C.ER 22:48 → C.9E 01-09 01:41 → C.6T 01-09 14:15 → UNDODISIN 01-11 14:45 → C.6T 01-13 02:23
PROVIDERS: ADMIT Internal Medicine Critical Care Medicine; ATTEND Internal Medicine Critical Care Medicine
DX: C50.912 Malignant neoplasm of unspecified site of left female breast (principal); E46 Unspecified protein-calorie malnutrition; Z68.1 Body mass index [BMI] 19.9 or less, adult; E61.1 Iron deficiency; R00.0 Tachycardia, unspecified; Z74.01 Bed confinement status; M06.9 Rheumatoid arthritis, unspecified

== ENCOUNTER 2017-02-20 18:16 | Inpatient (IN) | payer MEDICARE, OTHER ==
[2017-02-20 18:33] VITALS: BMI 18.1
--- NOTE | 2017-02-20 18:55 | C.PDOC ---
History Of Present Illness 51 year old female with a history of rheumatoid arthritis, vertigo, and breast cancer presents to the ED with complaints of bloody drainage from left breast. Patient is requesting for her surgeon to be the only person to open her dressing to evaluate wound. According to patient, she has had bleeding from the left breast to the point of needing transfusions. She called her surgeon but they did not answer. Patient called her PMD, Dr. Nikolas Martinez, who referred her to the ED for evaluation. She denies fever, nausea, or vomiting. Chief Complaint (Nursing): Abnormal Skin Integrity History Per: Patient History/Exam Limitations: no limitations Onset/Duration Of Symptoms: Persistent (chronic ) Current Symptoms Are (Timing): Still Present Location Of Injury: Left: Chest (breast) Quality Of Symptoms: Draining (bloody drainage ) Recent travel outside of the [place]: No Additional History Per: Prior Records Past Medical History Reviewed: Historical Data, Nursing Documentation, Vital Signs Vital Signs: Last Vital Signs Temp 98.6 F 02/20/17 18:34 Pulse 108 H 02/20/17 19:53 Resp 16 02/20/17 19:53 BP 115/63 02/20/17 19:53 Pulse Ox 100 02/20/17 21:11 - Medical History PMH: Anemia, Anxiety, Arthritis (severe athritis), Malignancy, Rheumatoid Arthritis - [facility] Procedures EXCISION OF LEFT BREAST, OPEN APPROACH, DIAGNOSTIC (11/06/16) Family History: States: Unknown Family Hx - Social History Hx Tobacco Use: No Hx Alcohol Use: No Hx Substance Use: No - Immunization History Hx Tetanus Toxoid Vaccination: No Hx Influenza Vaccination: No Hx Pneumococcal Vaccination: No Review Of Systems Constitutional: Negative for: Fever, Chills Cardiovascular: Negative for: Chest Pain, Palpitations Respiratory: Negative for: Cough, Shortness of Breath Gastrointestinal: Negative for: Nausea, Vomiting Skin: Positive for: Other (bloody drainage of left breast ) Physical Exam - Physical Exam Appears: Non-toxic, Other (cachectic, generalized wasting ) Skin: Warm, Dry Head: Atraumatic, Normacephalic Eye(s): bilateral: Normal Inspection, PERRL, EOMI Oral Mucosa: Moist Neck: Supple Chest: Other (left breast tumor eroding through skin, active bleeding at site of tumor erosin of skin. 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 Martinez regarding patient, agrees to come see patient at bed side before determining if patient will be admitted. Disposition - Disposition Disposition: HOSPITALIZED Disposition Time: 21:11 Condition: FAIR Forms: Kahub (Estonian) - Clinical Impression Clinical Impression: Breast cancer - Scribe Statement The provider has reviewed the documentation as recorded by the Scribe Stacey Alston All medical record entries made by the Scribe were at my direction and personally dictated by me. I have reviewed the chart and agree that the record accurately reflects my personal performance of the history, physical exam, medical decision making, and the department course for this patient. I have also personally directed, reviewed, and agree with the discharge instructions and disposition.
[2017-02-20] MEDS ORDERED: Vancomycin 1 GM 1 GM/250 ML BAG IVPB ONE (23:19)
[2017-02-20] MEDS: Sodium Chloride 0.9% 1,000 ML IV SCH (23:21)
[2017-02-21 01:19] LABS: BASO % 0.3 % (0.0-2.0); EOS # 0.3 K/uL (0.0-0.7); EOS % 3.8 % (0.0-4.0); HEMATOCRIT 29.4 % (34.0-47.0); LYMPH # 0.9 K/uL (1.0-4.3); LYMPH % 10.9 % (20.0-40.0); MEAN CELL VOLUME 72.4 fL (81.0-99.0); MEAN CORPUSCULAR HEMOGLOBIN 23.8 pg (27.0-31.0); MEAN CORPUSCULAR HGB CONC 32.9 g/dL (33.0-37.0); MEAN PLATELET VOLUME 7.1 fL (7.2-11.7); MONO # 0.4 K/uL (0.0-0.8); MONO % 5.1 % (0.0-10.0); RED CELL DISTRIBUTION WIDTH 18.3 % (11.5-14.5); WHITE BLOOD COUNT 8.4 K/uL (4.8-10.8)
[2017-02-21 01:20] LABS: CHLORIDE 101 mmol/L (98-107); POTASSIUM 3.6 mmol/L (3.6-5.2); SODIUM 136 mmol/L (132-148)
[2017-02-21 01:22] LABS: ALB/GLOB RATIO 0.6 (1.0-2.1); ALKALINE PHOSPHATASE 88 U/L (38-126); AST/SGOT 18 U/L (14-36); BILIRUBIN,TOTAL 0.2 mg/dL (0.2-1.3); CARBON DIOXIDE 21 mmol/L (22-30); GFR AFRICAN-AMERICAN > 60; TOTAL PROTEIN 7.6 g/dL (6.3-8.3)
[2017-02-21 01:23] LABS: ALT/SGPT 18 U/L (9-52); BLOOD UREA NITROGEN 11 mg/dL (7-17); CALCIUM 8.3 mg/dl (8.6-10.4); GLUCOSE,RANDOM 127 mg/dL (65-105)
--- NOTE | 2017-02-21 01:32 | CP.PCM.CON ---
History of Present Illness - History of Present Illness History of Present Illness: General Surgery consult note for Dr. Godinez Consulted for: bleeding left breast mass Patient is a 51F with PMH significant for anemia and an unresectable left breast invasive ductal carcinoma mass with PSH of breast mass biopsy by Dr. Trinidad 4 months ago. Patient states that she is supposed to have her dressing over the mass changed every 5 days, but that it can begin to bleed heavily when changed inappropriately. Patient states that after a previous bleed after a dressing change she had to receive a blood transfusion. Patient states the her home nurses refuse to change the dressing and that her PMD says she should come to the hospital when she needs it changed. Patient states that it bled a little yesterday but it is no longer bleeding. Dressing was due to be changed today and that it needs surgicel in case of bleeding. Patient denies any chest pain, Dyspnea, fevers, chills, focal weakness or any other symptoms PMH: Rheumatoid arthritis, breast carcinoma with fungating mass, anemia, vertigo PSH: core needle biopsy left breast mass All: cipro, ibuprofen, magnesium, PCN, diphenhydramine Review of Systems - Review of Systems All systems: reviewed and no additional remarkable complaints except (as per HPI ) - Constitutional Constitutional: absent: Chills, Fever - Breasts Breasts: Change in Shape, Mass, Pain Additional comments: bleeding mass - Cardiovascular Cardiovascular: absent: Chest Pain, Chest Pain at Rest, Dyspnea - Respiratory Respiratory: absent: Cough, Dyspnea, Dyspnea on Exertion - Gastrointestinal Gastrointestinal: absent: Abdominal Pain, Diarrhea, Nausea - Musculoskeletal Musculoskeletal: absent: Muscle Weakness, Numbness, Tingling - Integumentary Additional comments: chronic skin ulceration over left breast - Neurological Neurological: Dizziness. absent: Numbness, Tingling - Hematologic/Lymphatic Hematologic: Easy Bleeding. absent: Easy Bruising Past Patient History - Infectious Disease Hx of Infectious Diseases: None - Past Medical History & Family History Past Medical History?: Yes - Past Social History Smoking Status: Never Smoked - CARDIAC Hx Cardiac Disorders: No - PULMONARY Hx Respiratory Disorders: No - NEUROLOGICAL Hx Neurological Disorder: No - HEENT Hx HEENT Problems: No - RENAL Hx Chronic Kidney Disease: No - ENDOCRINE/METABOLIC Hx Endocrine Disorders: No - HEMATOLOGICAL/ONCOLOGICAL Hx Anemia: Yes - INTEGUMENTARY Hx Dermatological Problems: Yes Other/Comment: left upper chest mass - MUSCULOSKELETAL/RHEUMATOLOGICAL Hx Arthritis: Yes (severe athritis) Hx Rheumatoid Arthritis: Yes - GASTROINTESTINAL Hx Gastrointestinal Disorders: No - GENITOURINARY/GYNECOLOGICAL Other/Comment: menopausal. breast CA - PSYCHIATRIC Hx Anxiety: Yes Hx Substance Use: No - SURGICAL HISTORY Hx Surgeries: Yes Hx Breast Biopsy: Yes Hx Section: Yes (x2) Other/Comment: d&c - ANESTHESIA Hx Anesthesia: Yes Hx Anesthesia Reactions: No Meds Allergies/Adverse Reactions: Allergies Allergy/AdvReac Type Severity Reaction Status Date / Time ciprofloxacin [From Cipro] Allergy SWELLING Verified 02/20/17 18:32 ibuprofen Allergy Verified 02/20/17 18:32 magnesium Allergy CONGESTION Verified 02/20/17 18:32 Penicillins Allergy SWELLING Verified 02/20/17 18:32 diphenhydramine AdvReac numbness Verified 02/20/17 18:32 [From Benadryl] on tongue and throath - Medications Medications: Current Medications Enoxaparin Sodium (Lovenox) 40 mg SC DAILY [facility] Sodium Chloride (Sodium Chloride 0.9%) 1,000 mls @ 50 mls/hr IV .Q20H [facility] Last Admin: 02/20/17 23:21 Dose: 50 mls/hr Vancomycin HCl 1 gm/ Sodium (Chloride) 250 mls @ 166.7 mls/hr IVPB Q24H [facility] Last Admin: 02/20/17 23:26 Dose: 166.7 mls/hr Physical Exam - Constitutional Appears: Non-toxic, No Acute Distress, Older Than Stated Age, Chronically Ill - Head Exam Head Exam: ATRAUMATIC, NORMOCEPHALIC - Eye Exam Eye Exam: Normal appearance. absent: Conjunctival injection, Scleral icterus - ENT Exam ENT Exam: Mucous Membranes Moist, Normal Oropharynx Additional comments: poor dental hygiene - Neck Exam Neck exam: Positive for: Full Rom, Normal Inspection - Respiratory Exam Respiratory Exam: NORMAL BREATHING PATTERN. absent: Accessory Muscle Use, Respiratory Distress - Cardiovascular Exam Cardiovascular Exam: RRR - GI/Abdominal Exam GI & Abdominal Exam: Soft. absent: Distended, Tenderness - Extremities Exam Extremities exam: Negative for: calf tenderness, pedal edema, tenderness Additional comments: deviated fingers d/t RA - Neurological Exam Neurological exam: Alert, Oriented x3 - Psychiatric Exam Psychiatric exam: Normal Affect, Normal Mood - Skin Skin Exam: Dry, Normal Color, Warm - Additional Findings Additional findings: left lateral breast covered in a bulky dressing C/D/I with a foul smelling odor but no sanguinous saturation Results - Vital Signs Recent Vital Signs: Last Vital Signs Temp 98.6 F 02/20/17 18:34 Pulse 107 H 02/20/17 23:10 Resp 15 02/20/17 23:10 BP 123/74 02/20/17 23:10 Pulse Ox 99 02/20/17 23:10 - Labs Result Diagrams: 02/21/17 01:06 02/21/17 01:06 Labs: Laboratory Results - last 24 hr 02/21/17 02/21/17 01:06 01:06 WBC 8.4 RBC 4.06 Hgb 9.7 L Hct 29.4 L MCV 72.4 L D MCH 23.8 L MCHC 32.9 L RDW 18.3 H Plt Count 321 MPV 7.1 L Neut % (Auto) 79.9 H Lymph % (Auto) 10.9 L [place] % (Auto) 5.1 Eos % (Auto) 3.8 Baso % (Auto) 0.3 Neut # 6.7 Lymph # 0.9 L [place] # 0.4 Eos # 0.3 Baso # 0.0 Sodium 136 Potassium 3.6 Chloride 101 Carbon Dioxide 21 L Anion Gap 18 BUN 11 Creatinine 0.3 L Est GFR ( Amer) > 60 Est GFR (Non-Af Amer) > 60 Random Glucose 127 H Calcium 8.3 L Total Bilirubin 0.2 AST 18 ALT 18 Alkaline Phosphatase 88 Total Protein 7.6 Albumin 3.0 L D Globulin 4.7 H Albumin/Globulin Ratio 0.6 L Assessment & Plan - Assessment and Plan (Free Text) Assessment: 51F with large invasive ductal carcinoma mass with chronic skin and soft-tissue breakdown Plan: - Patient is currently hemodynamically stable with H/H higher than her normal level - Mass not currently bleeding - Change dressing tomorrow AM with possible surgicel dressing - Monitor for bleeding Thank you for this consult Further recs per Dr. Gretchen Monsivais, PGY2
[2017-02-21] MEDS ORDERED: Enoxaparin 40 mg Syringe SC SCH (10:00)
--- NOTE | 2017-02-21 11:10 | CP.PCM.CON ---
<Carlyn PalmerJose Luis - Last Filed: 02/21/17 13:04> History of Present Illness - History of Present Illness History of Present Illness: Patient is a 51 year old female with past medical history of anemia and rheumatoid arthritis, who initially presents to the hospital with a bleeding left breast mass. She reports she noticed the mass approximately one year ago, but at that time, it was very small. She states the mass grew rapidly and started to bleed in September 2016. She had a biopsy of the breast mass in October, which showed invasive ductal carcinoma, grade 3, HER2 positive. She reports she was sent home with 3 months worth of wound care materials, and recently ran out 1 month ago, which is why she came to the hospital. She is requesting Surgicel for home care. She reports she changes the bandage every 1-3 days. She notes that when she changes the bandage, there is black tissue, clear "water" draining , and blood- sometimes there is "a lot of bleeding that won't stop", which is why she states she needs the Surgicel. She says that "it has bled so much that it worsens her anemia". Currently, she has no complaints and is only requesting a supply of Surgicel because she cannot get it at the pharmacy. Mother is at bedside. PMHx: anemia, RA, invasive ductal carcinoma, grade 3, HER2+ SurgHx: Cesarian section (1995, 2003); left breast biopsy 10/2016 FamHx: denies Heme/Onc Hx: left invasive ductal carcinoma, grade 3, HER2+ SocHx: denies tobacco, alcohol, and drug use; unemployed; bedridden since 2006 due to pain/RA Allergies: Advil, Penicillin, Ciprofloxacin, Benadryl, Magnesium Medications: Iron, Tylenol Review of Systems - Constitutional Constitutional: absent: Fever, Headache - EENT Ears: Dizziness ("due to antibiotics") - Breasts Breasts: Mass (left breast). absent: Pain - Cardiovascular Cardiovascular: absent: Chest Pain, Dyspnea - Respiratory Respiratory: absent: Cough, Dyspnea - Gastrointestinal Gastrointestinal: absent: Abdominal Pain, Constipation, Diarrhea, Nausea, Vomiting - Musculoskeletal Musculoskeletal: Arthralgias, Limited Range of Motion - Integumentary Integumentary: Bleeding Lesions (left breast mass) Past Patient History - Infectious Disease Hx of Infectious Diseases: None - Past Medical History & Family History Past Medical History?: Yes - Past Social History Smoking Status: Never Smoked - CARDIAC Hx Cardiac Disorders: No - PULMONARY Hx Respiratory Disorders: No - NEUROLOGICAL Hx Neurological Disorder: No - HEENT Hx HEENT Problems: No - RENAL Hx Chronic Kidney Disease: No - ENDOCRINE/METABOLIC Hx Endocrine Disorders: No - HEMATOLOGICAL/ONCOLOGICAL Hx Anemia: Yes - INTEGUMENTARY Hx Dermatological Problems: Yes Other/Comment: left upper chest mass - MUSCULOSKELETAL/RHEUMATOLOGICAL Hx Arthritis: Yes (severe athritis) Hx Rheumatoid Arthritis: Yes - GASTROINTESTINAL Hx Gastrointestinal Disorders: No - GENITOURINARY/GYNECOLOGICAL Other/Comment: menopausal. breast CA - PSYCHIATRIC Hx Anxiety: Yes Hx Substance Use: No - SURGICAL HISTORY Hx Surgeries: Yes Hx Breast Biopsy: Yes Hx Section: Yes (x2) Other/Comment: d&c - ANESTHESIA Hx Anesthesia: Yes Hx Anesthesia Reactions: No Meds Allergies/Adverse Reactions: Allergies Allergy/AdvReac Type Severity Reaction Status Date / Time ciprofloxacin [From Cipro] Allergy SWELLING Verified 02/20/17 18:32 ibuprofen Allergy Verified 02/20/17 18:32 magnesium Allergy CONGESTION Verified 02/20/17 18:32 Penicillins Allergy SWELLING Verified 02/20/17 18:32 diphenhydramine AdvReac numbness Verified 02/20/17 18:32 [From Benadryl] on tongue and throath - Medications Medications: Current Medications Sodium Chloride (Sodium Chloride 0.9%) 1,000 mls @ 50 mls/hr IV .Q20H [facility] Last Admin: 02/20/17 23:21 Dose: 50 mls/hr Vancomycin HCl 1 gm/ Sodium (Chloride) 250 mls @ 166.7 mls/hr IVPB Q24H [facility] Last Admin: 02/20/17 23:26 Dose: 166.7 mls/hr Physical Exam - Head Exam Head Exam: ATRAUMATIC, NORMAL INSPECTION - Eye Exam Eye Exam: EOMI, Normal appearance - ENT Exam ENT Exam: Mucous Membranes Dry - Respiratory Exam Respiratory Exam: Decreased Breath Sounds, NORMAL BREATHING PATTERN. absent: Rhonchi, Wheezes, Respiratory Distress - Cardiovascular Exam Cardiovascular Exam: REGULAR RHYTHM, +S1, +S2 - GI/Abdominal Exam GI & Abdominal Exam: Normal Bowel Sounds, Soft. absent: Tenderness - Extremities Exam Extremities exam: Negative for: full ROM, normal inspection, pedal edema Additional comments: Joint and extremity changes secondary to RA - Neurological Exam Neurological exam: Alert, Oriented x3 - Psychiatric Exam Psychiatric exam: Normal Affect, Normal Mood - Skin Skin Exam: Normal Color, Warm Additional comments: Patient deferred left breast exam. Bandage clean, dry, intact; Foul odor present. Results - Vital Signs Recent Vital Signs: Last Vital Signs Temp 98.6 F 02/21/17 08:39 Pulse 90 02/21/17 08:39 Resp 21 02/21/17 08:39 BP 104/66 02/21/17 08:39 Pulse Ox 100 02/21/17 08:39 - Labs Result Diagrams: 02/21/17 01:06 02/21/17 01:06 Labs: Laboratory Results - last 24 hr 02/21/17 02/21/17 01:06 01:06 WBC 8.4 RBC 4.06 Hgb 9.7 L Hct 29.4 L MCV 72.4 L D MCH 23.8 L MCHC 32.9 L RDW 18.3 H Plt Count 321 MPV 7.1 L Neut % (Auto) 79.9 H Lymph % (Auto) 10.9 L [place] % (Auto) 5.1 Eos % (Auto) 3.8 Baso % (Auto) 0.3 Neut # 6.7 Lymph # 0.9 L [place] # 0.4 Eos # 0.3 Baso # 0.0 Sodium 136 Potassium 3.6 Chloride 101 Carbon Dioxide 21 L Anion Gap 18 BUN 11 Creatinine 0.3 L Est GFR ( Amer) > 60 Est GFR (Non-Af Amer) > 60 Random Glucose 127 H Calcium 8.3 L Total Bilirubin 0.2 AST 18 ALT 18 Alkaline Phosphatase 88 Total Protein 7.6 Albumin 3.0 L D Globulin 4.7 H Albumin/Globulin Ratio 0.6 L Assessment & Plan (1) Invasive ductal carcinoma of breast, stage 3 Assessment and Plan: Stage IV, ER/PA negative, HER2 positive. Declined systemic treatment. Supportive treatment and wound care. Status: Acute (2) Anemia Assessment and Plan: Iron deficiency anemia. Repeat ferritin- follow up results. Replace iron as needed. Status: Acute <Sam Holt - Last Filed: 02/21/17 19:23> Meds - Medications Medications: Current Medications Sodium Chloride (Sodium Chloride 0.9%) 1,000 mls @ 50 mls/hr IV .Q20H [facility] Last Admin: 02/20/17 23:21 Dose: 50 mls/hr Vancomycin HCl 1 gm/ Sodium (Chloride) 250 mls @ 166.7 mls/hr IVPB Q24H [facility] Last Admin: 02/20/17 23:26 Dose: 166.7 mls/hr Doxycycline Hyclate 100 mg/ (Sodium Chloride) 100 mls @ 100 mls/hr IVPB Q12H [facility] Last Admin: 02/21/17 14:40 Dose: 100 mls/hr Results - Vital Signs Recent Vital Signs: Last Vital Signs Temp 98.7 F 02/21/17 15:00 Pulse 94 H 02/21/17 15:00 Resp 20 02/21/17 15:00 BP 106/67 02/21/17 15:00 Pulse Ox 99 02/21/17 15:00 - Labs Result Diagrams: 02/21/17 01:06 02/21/17 01:06 Labs: Laboratory Results - last 24 hr 02/21/17 02/21/17 01:06 01:06 WBC 8.4 RBC 4.06 Hgb 9.7 L Hct 29.4 L MCV 72.4 L D MCH 23.8 L MCHC 32.9 L RDW 18.3 H Plt Count 321 MPV 7.1 L Neut % (Auto) 79.9 H Lymph % (Auto) 10.9 L [place] % (Auto) 5.1 Eos % (Auto) 3.8 Baso % (Auto) 0.3 Neut # 6.7 Lymph # 0.9 L [place] # 0.4 Eos # 0.3 Baso # 0.0 Sodium 136 Potassium 3.6 Chloride 101 Carbon Dioxide 21 L Anion Gap 18 BUN 11 Creatinine 0.3 L Est GFR ( Amer) > 60 Est GFR (Non-Af Amer) > 60 Random Glucose 127 H Calcium 8.3 L Total Bilirubin 0.2 AST 18 ALT 18 Alkaline Phosphatase 88 Total Protein 7.6 Albumin 3.0 L D Globulin 4.7 H Albumin/Globulin Ratio 0.6 L Assessment & Plan - Assessment and Plan (Free Text) Assessment: Pt seen and examined, agree with residents consult. Pt well known to me with ER /PA negative, HER2 positive breast cancer. She has deferred systemic therapy and prefers local wound care. Pt to notify me in the future if she is agreeable to systemic therapy. Hx of iron deficiency anemia secondary to bleeding breast mass; repeat ferritin and will treat with IV iron if iron deficient. Thank you for this interesting consult.
--- NOTE | 2017-02-21 11:27 | CP.PCM.CON ---
History of Present Illness - History of Present Illness History of Present Illness: INFECTIOUS DISEASE CONSULT; HPI; Patient is a 51F with PMH significant for anemia and an unresectable left breast invasive ductal carcinoma mass with PSH of breast mass biopsy IN October by Dr. Trinidad. Patient states that she is supposed to have her dressing over the mass changed every 5 days, but that it can begin to bleed heavily when changed inappropriately. Patient states that after a previous bleed after a dressing change she had to receive a blood transfusion. Patient states the her home nurses refuse to change the dressing and that her PMD says she should come to the hospital when she needs it changed. Patient states that it bled a little yesterday but it is no longer bleeding. Dressing was due to be changed today and that it needs surgicel in case of bleeding. Patient denies any chest pain, Dyspnea, fevers, chills, focal weakness or any other symptoms. pt was started on iv vancomycin by PMD. PT HAS MANY ALLERGIES. INFECTIOUS DISEASE CONSULT REQUESTED BY PMD FOR EVALUATION AND ANTIBIOTICS. PMH: Rheumatoid arthritis, breast carcinoma with fungating mass, anemia, vertigo PSH: core needle biopsy left breast mass All: cipro, ibuprofen, magnesium, PCN, diphenhydramine Review of Systems - Constitutional Constitutional: absent: Chills, Fever, Headache - EENT Eyes: absent: Change in Vision Nose/Mouth/Throat: absent: Mouth Lesions - Cardiovascular Cardiovascular: absent: Chest Pain, Dyspnea - Respiratory Respiratory: absent: Cough, Change in Mucous Color, Pain with Coughing - Gastrointestinal Gastrointestinal: absent: Abdominal Pain, Constipation, Diarrhea - Genitourinary Genitourinary: absent: Dysuria, Freq UTI - Reproductive: Female Reproductive:Female: Post Menopausal - Musculoskeletal Musculoskeletal: Deformity, Loss of Height - Integumentary Integumentary: Skin Ulcer (left breast with fungating mass/serosanguineous drainage and malodorous discharge.) - Hematologic/Lymphatic Hematologic: As Per HPI Past Patient History - Infectious Disease Hx of Infectious Diseases: None - Past Medical History & Family History Past Medical History?: Yes - Past Social History Smoking Status: Never Smoked - CARDIAC Hx Cardiac Disorders: No - PULMONARY Hx Respiratory Disorders: No - NEUROLOGICAL Hx Neurological Disorder: No - HEENT Hx HEENT Problems: No - RENAL Hx Chronic Kidney Disease: No - ENDOCRINE/METABOLIC Hx Endocrine Disorders: No - HEMATOLOGICAL/ONCOLOGICAL Hx Anemia: Yes - INTEGUMENTARY Hx Dermatological Problems: Yes Other/Comment: left upper chest mass - MUSCULOSKELETAL/RHEUMATOLOGICAL Hx Arthritis: Yes (severe athritis) Hx Rheumatoid Arthritis: Yes - GASTROINTESTINAL Hx Gastrointestinal Disorders: No - GENITOURINARY/GYNECOLOGICAL Other/Comment: menopausal. breast CA - PSYCHIATRIC Hx Anxiety: Yes Hx Substance Use: No - SURGICAL HISTORY Hx Surgeries: Yes Hx Breast Biopsy: Yes Hx Section: Yes (x2) Other/Comment: d&c - ANESTHESIA Hx Anesthesia: Yes Hx Anesthesia Reactions: No Meds Allergies/Adverse Reactions: Allergies Allergy/AdvReac Type Severity Reaction Status Date / Time ciprofloxacin [From Cipro] Allergy SWELLING Verified 02/20/17 18:32 ibuprofen Allergy Verified 02/20/17 18:32 magnesium Allergy CONGESTION Verified 02/20/17 18:32 Penicillins Allergy SWELLING Verified 02/20/17 18:32 diphenhydramine AdvReac numbness Verified 02/20/17 18:32 [From Benadryl] on tongue and throath - Medications Medications: Current Medications Sodium Chloride (Sodium Chloride 0.9%) 1,000 mls @ 50 mls/hr IV .Q20H [facility] Last Admin: 02/20/17 23:21 Dose: 50 mls/hr Vancomycin HCl 1 gm/ Sodium (Chloride) 250 mls @ 166.7 mls/hr IVPB Q24H [facility] Last Admin: 02/20/17 23:26 Dose: 166.7 mls/hr Physical Exam - Constitutional Appears: No Acute Distress, Older Than Stated Age, Cachectic, Chronically Ill - Head Exam Head Exam: NORMAL INSPECTION - Eye Exam Eye Exam: EOMI, PERRL - ENT Exam ENT Exam: Mucous Membranes Moist (poor oral hygiene with many tooth missing.) - Neck Exam Neck exam: Positive for: Normal Inspection. Negative for: Thyromegaly - Respiratory Exam Respiratory Exam: Chest Wall Tenderness (dressing in place on left breast. Patient refuses to open the dressing.), Decreased Breath Sounds - Cardiovascular Exam Cardiovascular Exam: REGULAR RHYTHM, +S1, +S2 - GI/Abdominal Exam GI & Abdominal Exam: Normal Bowel Sounds, Soft. absent: Tenderness - Extremities Exam Extremities exam: Positive for: pedal pulses present. Negative for: calf tenderness, pedal edema Additional comments: deformity of both hands secondary to rheumatoid arthritis. Onychomycosis of the nails. - Neurological Exam Neurological exam: Alert, CN II-XII Intact, Oriented x3 - Psychiatric Exam Psychiatric exam: Normal Mood - Skin Skin Exam: Dry, Warm - Additional Findings Additional findings: left breast with a bulky dressing which is C/D/I. MALODOROUS SMELL WITH BLACKISH ESHCAR SEEN FROM THE PERIPHERY OF THE DRESSING. Patient denies to have the dressing removed. Results - Vital Signs Recent Vital Signs: Last Vital Signs Temp 98.6 F 02/21/17 08:39 Pulse 90 02/21/17 08:39 Resp 21 02/21/17 08:39 BP 104/66 02/21/17 08:39 Pulse Ox 100 02/21/17 08:39 - Labs Result Diagrams: 02/21/17 01:06 02/21/17 01:06 Labs: Laboratory Results - last 24 hr 02/21/17 02/21/17 01:06 01:06 WBC 8.4 RBC 4.06 Hgb 9.7 L Hct 29.4 L MCV 72.4 L D MCH 23.8 L MCHC 32.9 L RDW 18.3 H Plt Count 321 MPV 7.1 L Neut % (Auto) 79.9 H Lymph % (Auto) 10.9 L [place] % (Auto) 5.1 Eos % (Auto) 3.8 Baso % (Auto) 0.3 Neut # 6.7 Lymph # 0.9 L [place] # 0.4 Eos # 0.3 Baso # 0.0 Sodium 136 Potassium 3.6 Chloride 101 Carbon Dioxide 21 L Anion Gap 18 BUN 11 Creatinine 0.3 L Est GFR ( Amer) > 60 Est GFR (Non-Af Amer) > 60 Random Glucose 127 H Calcium 8.3 L Total Bilirubin 0.2 AST 18 ALT 18 Alkaline Phosphatase 88 Total Protein 7.6 Albumin 3.0 L D Globulin 4.7 H Albumin/Globulin Ratio 0.6 L Assessment & Plan (1) Breast mass, left Status: Acute (2) Invasive ductal carcinoma of breast, stage 3 Status: Acute (3) Bleeding from breast Status: Acute (4) Anemia Status: Acute (5) Malnutrition Status: Acute - Assessment and Plan (Free Text) Plan: PLAN; pANCULTURES WOUND CULTURE LEFT BREAST. CONTINUE iv VANCOMYCIN 1 G ONCE A DAY DAILY.02/20/17 ADD iv VIBRAMYCIN 100 MG EVERY 12 HOURLY FOR GRAM-NEGATIVE COVERAGE WHILE AWAITING CULTURES.02/21/17. LOCAL WOUND CARE INCREASE NUTRITION. DIETITIAN TO SEE THE PATIENT. SURGERY ON BOARD ..
[2017-02-21 16:07] VITALS: RESP 20
--- NOTE | 2017-02-21 17:40 | CP.PCM.HP ---
History of Present Illness - History of Present Illness History of Present Illness: A 51 year old female with P/M/HRA, vertigo and unresectable left breast invasive ductal carcinoma presents to the ER with C/Obloody drainage from her left breast. Left breast mass biopsy was done by Dr. Trinidad 4 months ago and she was advised to have her dressing changed every 5 days or it wouls start bleeding heavily and inappropriately. The home nurses also refused to change her dressing as she was advised to go to the hospital and get it done. Patient also states that during her last dressing it bled to the extent that she needed transfusion. Dressing is due to be changed today and it might need a Surgicel in case of continuous bleeding according to the patient. The patient denies any C/Ochest pain, SOB, fever, chills or pain in the left breast. Past Patient History - Infectious Disease Hx of Infectious Diseases: None - Past Medical History & Family History Past Medical History?: Yes - Past Social History Smoking Status: Never Smoked - CARDIAC Hx Cardiac Disorders: No - PULMONARY Hx Respiratory Disorders: No - NEUROLOGICAL Hx Neurological Disorder: No - HEENT Hx HEENT Problems: No - RENAL Hx Chronic Kidney Disease: No - ENDOCRINE/METABOLIC Hx Endocrine Disorders: No - HEMATOLOGICAL/ONCOLOGICAL Hx Anemia: Yes - INTEGUMENTARY Hx Dermatological Problems: Yes Other/Comment: left upper chest mass - MUSCULOSKELETAL/RHEUMATOLOGICAL Hx Arthritis: Yes (severe athritis) Hx Rheumatoid Arthritis: Yes - GASTROINTESTINAL Hx Gastrointestinal Disorders: No - GENITOURINARY/GYNECOLOGICAL Other/Comment: menopausal. breast CA - PSYCHIATRIC Hx Anxiety: Yes Hx Substance Use: No - SURGICAL HISTORY Hx Surgeries: Yes Hx Breast Biopsy: Yes Hx Section: Yes (x2) Other/Comment: d&c - ANESTHESIA Hx Anesthesia: Yes Hx Anesthesia Reactions: No Meds Home Medications: Home Medication List Medication Instructions Recorded Confirmed Type Doxycycline Oral Susp [Vibramycin 25 mg PO BID 10 Days #400 ml 02/23/17 Rx Oral Susp] Ondansetron ODT [Zofran ODT] 8 mg PO Q8H PRN #20 odt 02/23/17 Rx Saccharomyces Boulardi [Florastor] 250 mg PO DAILY #30 cap 02/23/17 Rx Allergies/Adverse Reactions: Allergies Allergy/AdvReac Type Severity Reaction Status Date / Time ciprofloxacin [From Cipro] Allergy SWELLING Verified 02/20/17 18:32 ibuprofen Allergy Verified 02/20/17 18:32 magnesium Allergy CONGESTION Verified 02/20/17 18:32 Penicillins Allergy SWELLING Verified 02/20/17 18:32 diphenhydramine AdvReac numbness Verified 02/20/17 18:32 [From Benadryl] on tongue and throath Physical Exam - Constitutional Appears: Well - Head Exam Head Exam: ATRAUMATIC, NORMAL INSPECTION, NORMOCEPHALIC - Eye Exam Eye Exam: EOMI, Normal appearance, PERRL Pupil Exam: NORMAL ACCOMODATION, PERRL - ENT Exam ENT Exam: Mucous Membranes Moist, Normal Exam - Neck Exam Neck exam: Positive for: Normal Inspection - Respiratory Exam Respiratory Exam: Decreased Breath Sounds - Cardiovascular Exam Cardiovascular Exam: REGULAR RHYTHM, +S1, +S2 - GI/Abdominal Exam GI & Abdominal Exam: Diminished Bowel Sounds, Soft - Rectal Exam Rectal Exam: Deferred Results - Vital Signs Recent Vital Signs: Last Vital Signs Temp 98.7 F 02/21/17 15:00 Pulse 94 H 02/21/17 15:00 Resp 20 02/21/17 15:00 BP 106/67 02/21/17 15:00 Pulse Ox 99 02/21/17 15:00 - Labs Result Diagrams: 02/23/17 08:09 02/23/17 08:09 Labs: Laboratory Results - last 24 hr 02/21/17 02/21/17 01:06 01:06 WBC 8.4 RBC 4.06 Hgb 9.7 L Hct 29.4 L MCV 72.4 L D MCH 23.8 L MCHC 32.9 L RDW 18.3 H Plt Count 321 MPV 7.1 L Neut % (Auto) 79.9 H Lymph % (Auto) 10.9 L Sutton % (Auto) 5.1 Eos % (Auto) 3.8 Baso % (Auto) 0.3 Neut # 6.7 Lymph # 0.9 L Sutton # 0.4 Eos # 0.3 Baso # 0.0 Sodium 136 Potassium 3.6 Chloride 101 Carbon Dioxide 21 L Anion Gap 18 BUN 11 Creatinine 0.3 L Est GFR ( Amer) > 60 Est GFR (Non-Af Amer) > 60 Random Glucose 127 H Calcium 8.3 L Total Bilirubin 0.2 AST 18 ALT 18 Alkaline Phosphatase 88 Total Protein 7.6 Albumin 3.0 L D Globulin 4.7 H Albumin/Globulin Ratio 0.6 L
[2017-02-21] MEDS: Sodium Chloride 0.9% 1,000 ML IV SCH (19:42)
--- NOTE | 2017-02-22 09:46 | CP.PCM.PN ---
Subjective - Date & Time of Evaluation Date of Evaluation: 02/22/17 Time of Evaluation: 09:44 - Subjective Subjective: Patient was seen and examined at bedside in no acute distress. Family was at bedside. She reports she feels a little dizzy from the antibiotics, but otherwise has no complaints. Dressing was changed yesterday. Patient reports there was "a lot of bleeding" when the dressing was removed. Patient denies having fevers, chest pain, nausea, vomiting, pain at the left breast mass, and difficulty breathing. Objective - Vital Signs/Intake and Output Vital Signs (last 24 hours): Temp Pulse Resp BP Pulse Ox 98.1 F 97 H 20 103/58 L 99 02/22/17 08:23 02/22/17 08:23 02/22/17 08:23 02/22/17 08:23 02/22/17 08:23 Intake and Output: 02/22/17 02/22/17 06:59 18:59 Intake Total 600 400 Balance 600 400 - Medications Medications: Current Medications Sodium Chloride (Sodium Chloride 0.9%) 1,000 mls @ 50 mls/hr IV .Q20H [facility] Last Admin: 02/21/17 19:42 Dose: 50 mls/hr Vancomycin HCl 1 gm/ Sodium (Chloride) 250 mls @ 166.7 mls/hr IVPB Q24H [facility] Last Admin: 02/21/17 22:37 Dose: 166.7 mls/hr Doxycycline Hyclate 100 mg/ (Sodium Chloride) 100 mls @ 100 mls/hr IVPB Q12H [facility] Last Admin: 02/22/17 02:23 Dose: Not Given - Labs Labs: 02/21/17 01:06 02/21/17 01:06 - Head Exam Head Exam: ATRAUMATIC, NORMAL INSPECTION - Eye Exam Eye Exam: EOMI, Normal appearance - ENT Exam ENT Exam: Mucous Membranes Dry - Respiratory Exam Respiratory Exam: Decreased Breath Sounds, Clear to Ausculation Bilateral, NORMAL BREATHING PATTERN. absent: Rhonchi, Wheezes, Respiratory Distress - Cardiovascular Exam Cardiovascular Exam: REGULAR RHYTHM, +S1, +S2 - GI/Abdominal Exam GI & Abdominal Exam: Soft, Normal Bowel Sounds. absent: Distended, Tenderness - Extremities Exam Extremities Exam: Normal Inspection (Joint and extremity changes secondary to RA ). absent: Pedal Edema - Neurological Exam Neurological Exam: Alert, Awake, Oriented x3 - Psychiatric Exam Psychiatric exam: Normal Affect, Normal Mood - Skin Skin Exam: Dry, Intact, Normal Color, Warm Additional comments: Left breast- dressing clean, dry, and intact. Assessment and Plan (1) Invasive ductal carcinoma of breast, stage 3 Assessment & Plan: Stage IV, ER/NH negative, HER2 positive. Patient declined systemic treatment. Continue supportive treatment and local wound care. Status: Acute (2) Anemia Assessment & Plan: Iron deficiency anemia. Repeat ferritin- follow up results. Replace iron as needed. Status: Acute
--- NOTE | 2017-02-22 10:07 | CP.PCM.PN ---
<Ke Fisher - Last Filed: 02/22/17 18:22> Subjective - Date & Time of Evaluation Date of Evaluation: 02/22/17 Time of Evaluation: 10:00 - Subjective Subjective: PGY3 on medicine Dr. Martinez service: Pt seen and examined at bedside this morning. S/P dressing change yesterday with bleeding, but not anymore. Pt also reports dizziness from antibiotics use. Pt also request having daughter to stay with her overnight. No other complaints at this time. Objective - Vital Signs/Intake and Output Vital Signs (last 24 hours): Temp Pulse Resp BP Pulse Ox 98.1 F 97 H 20 103/58 L 99 02/22/17 08:23 02/22/17 08:23 02/22/17 08:23 02/22/17 08:23 02/22/17 08:23 Intake and Output: 02/22/17 02/22/17 06:59 18:59 Intake Total 600 400 Balance 600 400 - Medications Medications: Current Medications Sodium Chloride (Sodium Chloride 0.9%) 1,000 mls @ 50 mls/hr IV .Q20H [facility] Last Admin: 02/21/17 19:42 Dose: 50 mls/hr Vancomycin HCl 1 gm/ Sodium (Chloride) 250 mls @ 166.7 mls/hr IVPB Q24H [facility] Last Admin: 02/21/17 22:37 Dose: 166.7 mls/hr Doxycycline Hyclate 100 mg/ (Sodium Chloride) 100 mls @ 100 mls/hr IVPB Q12H [facility] Last Admin: 02/22/17 02:23 Dose: Not Given - Labs Labs: 02/21/17 01:06 02/21/17 01:06 - Constitutional Appears: Non-toxic, No Acute Distress, Cachectic, Chronically Ill - Head Exam Head Exam: NORMOCEPHALIC - Eye Exam Eye Exam: Normal appearance Pupil Exam: NORMAL ACCOMODATION - Respiratory Exam Respiratory Exam: Clear to Ausculation Bilateral, NORMAL BREATHING PATTERN. absent: Chest Wall Tenderness, Wheezes Additional comments: left chest dressing c/d/i - Cardiovascular Exam Cardiovascular Exam: REGULAR RHYTHM, +S1, +S2. absent: Gallop, Rubs - GI/Abdominal Exam GI & Abdominal Exam: Soft, Normal Bowel Sounds. absent: Tenderness - Neurological Exam Neurological Exam: Alert, Awake, Oriented x3 - Psychiatric Exam Psychiatric exam: Normal Mood - Skin Skin Exam: Intact Assessment and Plan - Assessment and Plan (Free Text) Assessment: Left breast wound ID Dr. Lopez consulted, help appreciated. Wound culture positive for gram negative xena. Vanco 1g IV q24 (02/20) Pt refused Vibramycin IV, will attempt Vibramycin 100mg PO q12H. F/U final wound culture. Stage IV invasive ductal carcinoma Heme/onc Dr. Holt consulted, help appreciated. Declined systemic treatment. Continue wound care. Anemia Heme/onc Dr. Holt consulted, help appreciated. Management as per Dr. Holt. Prophylactic measure SCD. Management as per Dr. Martinez. <Shan Martinez S - Last Filed: 03/27/17 18:07> Objective - Vital Signs/Intake and Output Vital Signs (last 24 hours): Temp Pulse Resp BP Pulse Ox 99.0 F 91 H 20 116/64 99 02/23/17 15:00 02/23/17 15:00 02/23/17 15:00 02/23/17 15:00 02/23/17 15:00 - Labs Labs: 02/23/17 08:09 02/23/17 08:09 Attending/Attestation - Attestation I have personally seen and examined this patient.: Yes I have fully participated in the care of the patient.: Yes I have reviewed all pertinent clinical information, including history, physical exam and plan: Yes Notes (Text): Patient examined. No bleeding from dressing since yesterday. Continue antibiotic vancomycin.
[2017-02-22] MEDS: Sodium Chloride 0.9% 1,000 ML IV SCH ×2 (14:00→15:04)
[2017-02-22 17:28] LABS: BASO % 0.5 % (0.0-2.0); EOS # 0.3 K/uL (0.0-0.7); EOS % 4.3 % (0.0-4.0); HEMATOCRIT 28.8 % (34.0-47.0); MEAN CORPUSCULAR HEMOGLOBIN 23.8 pg (27.0-31.0); MEAN CORPUSCULAR HGB CONC 32.2 g/dL (33.0-37.0); MEAN PLATELET VOLUME 7.9 fL (7.2-11.7); MONO # 0.2 K/uL (0.0-0.8); MONO % 3.5 % (0.0-10.0); NRBC % 0.1 % (0.0-2.0)
[2017-02-22 17:32] LABS: CHLORIDE 107 mmol/L (98-107); POTASSIUM 4.2 mmol/L (3.6-5.2); SODIUM 135 mmol/L (132-148)
[2017-02-22 17:35] LABS: BLOOD UREA NITROGEN 11 mg/dL (7-17); CARBON DIOXIDE 20 mmol/L (22-30); GFR AFRICAN-AMERICAN > 60; GLUCOSE,RANDOM 115 mg/dL (65-105)
[2017-02-22 17:36] LABS: CALCIUM 8.4 mg/dl (8.6-10.4)
--- NOTE | 2017-02-22 18:28 | CP.PCM.PN ---
Subjective - Date & Time of Evaluation Date of Evaluation: 02/22/17 Time of Evaluation: 07:00 - Subjective Subjective: General Surgery Dr. Trinidad Pt S&E @bedside. NAEO. no complaints. denies N/V, F/C. tolerating diet Objective - Vital Signs/Intake and Output Vital Signs (last 24 hours): Temp Pulse Resp BP Pulse Ox 98.6 F 77 20 113/78 96 02/22/17 16:00 02/22/17 16:00 02/22/17 16:00 02/22/17 16:00 02/22/17 16:00 Intake and Output: 02/22/17 02/22/17 06:59 18:59 Intake Total 600 800 Balance 600 800 - Medications Medications: Current Medications Doxycycline Hyclate (Doryx) 100 mg PO Q12H [facility] Sodium Chloride (Sodium Chloride 0.9%) 1,000 mls @ 50 mls/hr IV .Q20H [facility] Last Admin: 02/22/17 15:04 Dose: 50 mls/hr Vancomycin HCl 1 gm/ Sodium (Chloride) 250 mls @ 166.7 mls/hr IVPB Q24H [facility] Last Admin: 02/21/17 22:37 Dose: 166.7 mls/hr - Labs Labs: 02/22/17 17:14 02/22/17 17:14 - Constitutional Appears: Non-toxic, No Acute Distress - Head Exam Head Exam: NORMAL INSPECTION - Eye Exam Eye Exam: Normal appearance - ENT Exam ENT Exam: Mucous Membranes Moist - Respiratory Exam Respiratory Exam: NORMAL BREATHING PATTERN. absent: Accessory Muscle Use, Respiratory Distress - GI/Abdominal Exam GI & Abdominal Exam: absent: Distended - Extremities Exam Extremities Exam: Normal Inspection - Neurological Exam Neurological Exam: Alert, Awake, Oriented x3 - Psychiatric Exam Psychiatric exam: Normal Affect, Normal Mood - Skin Skin Exam: Dry, Intact, Normal Color, Warm Assessment and Plan - Assessment and Plan (Free Text) Assessment: 51 y/o F w/ bleeding L breast cancer - dressing changes PRN - recommend wound care consult - discussed palliative mass excision - cont medical management Pt discussed w/ Dr. Amos Banuelos DO PGY2
--- NOTE | 2017-02-22 19:39 | CP.PCM.PN ---
Subjective - Date & Time of Evaluation Date of Evaluation: 02/22/17 Time of Evaluation: 07:40 - Subjective Subjective: clinically same Objective - Vital Signs/Intake and Output Vital Signs (last 24 hours): Temp Pulse Resp BP Pulse Ox 98.6 F 77 20 113/78 96 02/22/17 16:00 02/22/17 16:00 02/22/17 16:00 02/22/17 16:00 02/22/17 16:00 Intake and Output: 02/22/17 02/23/17 18:59 06:59 Intake Total 800 Balance 800 - Medications Medications: Current Medications Doxycycline Hyclate (Doryx) 100 mg PO Q12H [facility] Sodium Chloride (Sodium Chloride 0.9%) 1,000 mls @ 50 mls/hr IV .Q20H [facility] Last Admin: 02/22/17 15:04 Dose: 50 mls/hr Vancomycin HCl 1 gm/ Sodium (Chloride) 250 mls @ 166.7 mls/hr IVPB Q24H [facility] Last Admin: 02/21/17 22:37 Dose: 166.7 mls/hr - Labs Labs: 02/22/17 17:14 02/22/17 17:14 - Constitutional Appears: Well - Head Exam Head Exam: ATRAUMATIC, NORMAL INSPECTION, NORMOCEPHALIC - Eye Exam Eye Exam: EOMI, Normal appearance, PERRL Pupil Exam: NORMAL ACCOMODATION, PERRL - ENT Exam ENT Exam: Mucous Membranes Moist, Normal Exam - Neck Exam Neck Exam: Full ROM, Normal Inspection. absent: Lymphadenopathy - Respiratory Exam Respiratory Exam: Decreased Breath Sounds - Cardiovascular Exam Cardiovascular Exam: REGULAR RHYTHM, +S1, +S2 - GI/Abdominal Exam GI & Abdominal Exam: Soft, Diminished Bowel Sounds - Rectal Exam Rectal Exam: Deferred - Back Exam Back Exam: NORMAL INSPECTION - Neurological Exam Neurological Exam: Alert, Awake, CN II-XII Intact, Normal Gait, Oriented x3 - Psychiatric Exam Psychiatric exam: Normal Affect, Normal Mood - Skin Skin Exam: Dry, Intact, Normal Color, Warm Assessment and Plan (1) Anemia Status: Acute (2) Anemia Status: Acute (3) Bleeding Status: Acute (4) Bleeding from breast Status: Acute (5) Breast cancer Status: Acute (6) Breast cancer Status: Acute (7) Breast mass, left Status: Acute (8) Chest pain Status: Acute (9) Clinical decompensation Status: Acute (10) Constipation Status: Acute (11) Invasive ductal carcinoma of breast, stage 3 Status: Acute (12) Malnutrition Status: Acute (13) 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 Minimal discharge from the breast dressing. Continue supportive care.
--- NOTE | 2017-02-22 22:53 | CP.PCM.PN ---
Subjective - Date & Time of Evaluation Date of Evaluation: 02/22/17 Time of Evaluation: 22:53 - Subjective Subjective: afebrile, No acute events overnight DRESSING CHANGED YESTERDAY WITH SOME BLEEDING. dENIES ANY NAUSEA OR VOMITING. REFUSING iv VIBRAMYCIN. LABS; WOUND CULTURE +VE GRAM-NEGATIVE MARIE. BLOOD CULTURES NEGATIVE TO DATE. Objective - Vital Signs/Intake and Output Vital Signs (last 24 hours): Temp Pulse Resp BP Pulse Ox 98.6 F 77 20 113/78 96 02/22/17 16:00 02/22/17 16:00 02/22/17 16:00 02/22/17 16:00 02/22/17 16:00 Intake and Output: 02/22/17 02/23/17 18:59 06:59 Intake Total 800 Balance 800 - Medications Medications: Current Medications Doxycycline Hyclate (Doryx) 100 mg PO Q12H [facility] Last Admin: 02/22/17 22:17 Dose: 100 mg Sodium Chloride (Sodium Chloride 0.9%) 1,000 mls @ 50 mls/hr IV .Q20H [facility] Last Admin: 02/22/17 15:04 Dose: 50 mls/hr Vancomycin HCl 1 gm/ Sodium (Chloride) 250 mls @ 166.7 mls/hr IVPB Q24H [facility] Last Admin: 02/22/17 22:15 Dose: 166.7 mls/hr - Labs Labs: 02/22/17 17:14 02/22/17 17:14 - Constitutional Appears: No Acute Distress, Cachectic, Chronically Ill - Head Exam Head Exam: NORMAL INSPECTION - Eye Exam Eye Exam: EOMI, PERRL (POOR ORAL HYGIENE ,MANY TEETH MISSING.) - ENT Exam ENT Exam: Mucous Membranes Moist - Respiratory Exam Respiratory Exam: Clear to Ausculation Bilateral, NORMAL BREATHING PATTERN - Cardiovascular Exam Cardiovascular Exam: REGULAR RHYTHM, +S1, +S2 - GI/Abdominal Exam GI & Abdominal Exam: Soft, Normal Bowel Sounds - Extremities Exam Extremities Exam: absent: Calf Tenderness, Pedal Edema - Neurological Exam Neurological Exam: Awake, CN II-XII Intact, Oriented x3, Reflexes Normal - Skin Skin Exam: Warm - Additional Findings Additional findings: Chest Wall Tenderness (dressing in place on left breast. Patient refuses to open the dressing.). MALODOROUS DISCHARGE. Assessment and Plan (1) Breast mass, left Status: Acute (2) Invasive ductal carcinoma of breast, stage 3 Status: Acute (3) Bleeding from breast Status: Acute (4) Anemia Status: Acute (5) Protein calorie malnutrition Status: Acute - Assessment and Plan (Free Text) Plan: WOUND CULTURE LEFT BREAST-P -IDENTIFICATION. F/U CULTURES TO ADJUST ANTIBIOTICS. CONTINUE iv VANCOMYCIN 1 G ONCE A DAY DAILY.02/20/17 DC iv VIBRAMYCIN 100 MG EVERY 12 HOURLY FOR GRAM-NEGATIVE COVERAGE WHILE AWAITING CULTURES.02/21/17. CAN SWITCH TO BY MOUTH vIBRAMYCIN 100 MG TWICE A DAY CASE DISCUSSED WITH RESIDENT DR HERMELINDA GALLAGHER. LOCAL WOUND CARE PER SURGERY INCREASE NUTRITION. HIGH-CALORIE DIET HIGH PROTEINS. DIETITIAN TO SEE THE PATIENT. SURGERY ON BOARD ..
[2017-02-23 08:31] LABS: CHLORIDE 107 mmol/L (98-107); POTASSIUM 3.4 mmol/L (3.6-5.2); SODIUM 137 mmol/L (132-148)
[2017-02-23 08:32] LABS: BASO % 0.3 % (0.0-2.0); EOS # 0.4 K/uL (0.0-0.7); EOS % 6.7 % (0.0-4.0); HEMATOCRIT 27.4 % (34.0-47.0); LYMPH # 1.1 K/uL (1.0-4.3); MEAN CELL VOLUME 73.9 fL (81.0-99.0); MEAN CORPUSCULAR HEMOGLOBIN 23.7 pg (27.0-31.0); MEAN CORPUSCULAR HGB CONC 32.1 g/dL (33.0-37.0); MEAN PLATELET VOLUME 7.4 fL (7.2-11.7); MONO # 0.4 K/uL (0.0-0.8); MONO % 5.5 % (0.0-10.0); NRBC % 0.1 % (0.0-2.0); RED CELL DISTRIBUTION WIDTH 17.8 % (11.5-14.5); WHITE BLOOD COUNT 6.5 K/uL (4.8-10.8)
[2017-02-23 08:33] LABS: BILIRUBIN,TOTAL 0.3 mg/dL (0.2-1.3); GFR AFRICAN-AMERICAN > 60
[2017-02-23 08:34] LABS: ALB/GLOB RATIO 0.6 (1.0-2.1); ALKALINE PHOSPHATASE 76 U/L (38-126); ALT/SGPT 18 U/L (9-52); AST/SGOT 22 U/L (14-36); BLOOD UREA NITROGEN 7 mg/dL (7-17); CARBON DIOXIDE 21 mmol/L (22-30); GLUCOSE,RANDOM 77 mg/dL (65-105); TOTAL PROTEIN 7.2 g/dL (6.3-8.3)
[2017-02-23 08:35] LABS: CALCIUM 8.3 mg/dl (8.6-10.4)
--- NOTE | 2017-02-23 09:29 | CP.PCM.PN ---
Subjective - Date & Time of Evaluation Date of Evaluation: 02/23/17 Time of Evaluation: 07:40 - Subjective Subjective: clinically same Objective - Vital Signs/Intake and Output Vital Signs (last 24 hours): Temp Pulse Resp BP Pulse Ox 98.0 F 87 20 104/62 97 02/23/17 08:07 02/23/17 08:07 02/23/17 08:07 02/23/17 08:07 02/23/17 08:07 Intake and Output: 02/23/17 02/23/17 06:59 18:59 Intake Total 500 Balance 500 - Medications Medications: Current Medications Acetaminophen (Tylenol 325mg Tab) 975 mg PO Q6 PRN PRN Reason: Fever >100.4 F Docusate Sodium (Colace) 100 mg PO BID [facility] Doxycycline Hyclate (Doryx) 100 mg PO Q12H [facility] Last Admin: 02/22/17 22:17 Dose: 100 mg Sodium Chloride (Sodium Chloride 0.9%) 1,000 mls @ 50 mls/hr IV .Q20H [facility] Last Admin: 02/22/17 15:04 Dose: 50 mls/hr Vancomycin HCl 1 gm/ Sodium (Chloride) 250 mls @ 166.7 mls/hr IVPB Q24H [facility] Last Admin: 02/22/17 22:15 Dose: 166.7 mls/hr Morphine Sulfate (Morphine) 2 mg IVP Q6H PRN PRN Reason: Pain, severe (8-10) Tramadol HCl (Ultram) 50 mg PO TID PRN PRN Reason: Pain, moderate (4-7) - Labs Labs: 02/23/17 08:09 02/23/17 08:09 - Constitutional Appears: Well - Head Exam Head Exam: ATRAUMATIC, NORMAL INSPECTION, NORMOCEPHALIC - Eye Exam Eye Exam: EOMI, Normal appearance, PERRL Pupil Exam: NORMAL ACCOMODATION, PERRL - ENT Exam ENT Exam: Mucous Membranes Moist, Normal Exam - Neck Exam Neck Exam: Full ROM, Normal Inspection. absent: Lymphadenopathy - Respiratory Exam Respiratory Exam: Decreased Breath Sounds - Cardiovascular Exam Cardiovascular Exam: REGULAR RHYTHM, +S1, +S2 - GI/Abdominal Exam GI & Abdominal Exam: Soft, Diminished Bowel Sounds - Rectal Exam Rectal Exam: Deferred - Back Exam Back Exam: NORMAL INSPECTION - Neurological Exam Neurological Exam: Alert, Awake, CN II-XII Intact, Normal Gait, Oriented x3 - Psychiatric Exam Psychiatric exam: Normal Affect, Normal Mood - Skin Skin Exam: Dry, Intact, Normal Color, Warm Assessment and Plan (1) Anemia Status: Acute (2) Anemia Status: Acute (3) Bleeding Status: Acute (4) Bleeding from breast Status: Acute (5) Breast cancer Status: Acute (6) Breast cancer Status: Acute (7) Breast mass, left Status: Acute (8) Chest pain Status: Acute (9) Clinical decompensation Status: Acute (10) Constipation Status: Acute (11) Invasive ductal carcinoma of breast, stage 3 Status: Acute (12) Malnutrition Status: Acute (13) 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 Patient better. Minimal discharge. Continue supportive care.
--- NOTE | 2017-02-23 10:05 | CP.PCM.PN ---
Addendum entered and electronically signed by Deejay Hernández DO 02/23/17 15:43: we are recommending wound care at home, as printed in a home prescription and discussed with social work/case management at length. Original Note: <Deejay Hernández - Last Filed: 02/23/17 14:21> Subjective - Date & Time of Evaluation Date of Evaluation: 02/23/17 Time of Evaluation: 10:05 - Subjective Subjective: Patient seen and examined at bedside this AM; denies any complaints; denies fevers/chills, SANTOS, CP, SOB, abdominal pain, N/V/D, dysuria/freq/urg. Patient is stable for d/c as per Dr. Gisella shoemaker. Patient will need to crush all of her medicines as she cannot swallow pills but is not dysphagic to foods; will need to mix them all in to pudding/oatmeal. Objective - Vital Signs/Intake and Output Vital Signs (last 24 hours): Temp Pulse Resp BP Pulse Ox 98.0 F 87 20 104/62 97 02/23/17 08:07 02/23/17 08:07 02/23/17 08:07 02/23/17 08:07 02/23/17 08:07 Intake and Output: 02/23/17 02/23/17 06:59 18:59 Intake Total 500 Balance 500 - Medications Medications: Current Medications Acetaminophen (Tylenol 325mg Tab) 975 mg PO Q6 PRN PRN Reason: Fever >100.4 F Docusate Sodium (Colace) 100 mg PO BID [facility] Doxycycline Hyclate (Doryx) 100 mg PO Q12H [facility] Last Admin: 02/22/17 22:17 Dose: 100 mg Sodium Chloride (Sodium Chloride 0.9%) 1,000 mls @ 50 mls/hr IV .Q20H [facility] Last Admin: 02/22/17 15:04 Dose: 50 mls/hr Vancomycin HCl 1 gm/ Sodium (Chloride) 250 mls @ 166.7 mls/hr IVPB Q24H [facility] Last Admin: 02/22/17 22:15 Dose: 166.7 mls/hr Morphine Sulfate (Morphine) 2 mg IVP Q6H PRN PRN Reason: Pain, severe (8-10) Tramadol HCl (Ultram) 50 mg PO TID PRN PRN Reason: Pain, moderate (4-7) - Labs Labs: 02/23/17 08:09 02/23/17 08:09 - Constitutional Appears: Non-toxic - Head Exam Head Exam: ATRAUMATIC - Eye Exam Eye Exam: EOMI Pupil Exam: PERRL - ENT Exam ENT Exam: Mucous Membranes Moist - Neck Exam Neck Exam: absent: Lymphadenopathy - Respiratory Exam Respiratory Exam: Wheezes, NORMAL BREATHING PATTERN. absent: Clear to Ausculation Bilateral, Rales, Rhonchi - Cardiovascular Exam Cardiovascular Exam: REGULAR RHYTHM - GI/Abdominal Exam GI & Abdominal Exam: Soft, Normal Bowel Sounds - Extremities Exam Extremities Exam: absent: Calf Tenderness, Full ROM - Back Exam Back Exam: absent: CVA tenderness (L), CVA tenderness (R) - Neurological Exam Neurological Exam: Alert, Awake, Oriented x3 - Psychiatric Exam Psychiatric exam: Normal Affect Assessment and Plan - Assessment and Plan (Free Text) Assessment: Left breast wound; resolving ID Dr. Lopez consulted, help appreciated. Wound culture positive for gram negative xena. Vanco 1g IV q24 (02/20) Pt refused Vibramycin IV, will attempt Vibramycin 100mg PO q12H; patient is still refusing; says upsets stomach too much pt will be d/c on PO Vibramycin 100mg PO BID; will crush and mix into food Stage IV invasive ductal carcinoma Heme/onc Dr. Holt consulted, help appreciated. Declined systemic treatment; patient is very reluctant about all treatments Continue wound care. patient will need to f/u with Dr. Holt as an outpatient Dysphagia -as per son patient is having trouble swallowing food -patient denies; and is refusing swallow evaluation -aspiration precautions Anemia Heme/onc Dr. Holt consulted, help appreciated. Management as per Dr. Holt. Prophylactic measure SCD. Management as per Dr. Shoemaker. The patient is stable for d/c <Shan Shoemaker - Last Filed: 03/27/17 18:08> Objective - Vital Signs/Intake and Output Vital Signs (last 24 hours): Temp Pulse Resp BP Pulse Ox 99.0 F 91 H 20 116/64 99 02/23/17 15:00 02/23/17 15:00 02/23/17 15:00 02/23/17 15:00 02/23/17 15:00 - Labs Labs: 02/23/17 08:09 02/23/17 08:09 Attending/Attestation - Attestation I have personally seen and examined this patient.: Yes I have fully participated in the care of the patient.: Yes I have reviewed all pertinent clinical information, including history, physical exam and plan: Yes Notes (Text): Patient examined. No symptoms. Can be discharge. Continue supportive medications.
[2017-02-23] MEDS ORDERED: Potassium Chloride 20 mEq ER Tab PO ONE ×2 (10:07→14:00)
--- NOTE | 2017-02-23 11:03 | CP.PCM.PN ---
<Carlyn Palmer - Last Filed: 02/23/17 12:33> Subjective - Date & Time of Evaluation Date of Evaluation: 02/23/17 Time of Evaluation: 11:00 - Subjective Subjective: Patient was seen and examined at bedside. Patient was accompanied by her son at bedside. She reports she is feeling well and has no complaints. She states her dizziness (which she feels is due to the medication) is improving. 12 point review of systems otherwise negative. Objective - Vital Signs/Intake and Output Vital Signs (last 24 hours): Temp Pulse Resp BP Pulse Ox 98.0 F 87 20 104/62 97 02/23/17 08:07 02/23/17 08:07 02/23/17 08:07 02/23/17 08:07 02/23/17 08:07 Intake and Output: 02/23/17 02/23/17 06:59 18:59 Intake Total 500 Balance 500 - Medications Medications: Current Medications Acetaminophen (Tylenol 325mg Tab) 975 mg PO Q6 PRN PRN Reason: Fever >100.4 F Docusate Sodium (Colace) 100 mg PO BID [facility] Last Admin: 02/23/17 09:56 Dose: 100 mg Doxycycline Hyclate (Doryx) 100 mg PO Q12H [facility] Last Admin: 02/23/17 09:00 Dose: Not Given Sodium Chloride (Sodium Chloride 0.9%) 1,000 mls @ 50 mls/hr IV .Q20H [facility] Last Admin: 02/22/17 15:04 Dose: 50 mls/hr Vancomycin HCl 1 gm/ Sodium (Chloride) 250 mls @ 166.7 mls/hr IVPB Q24H [facility] Last Admin: 02/22/17 22:15 Dose: 166.7 mls/hr Morphine Sulfate (Morphine) 2 mg IVP Q6H PRN PRN Reason: Pain, severe (8-10) Tramadol HCl (Ultram) 50 mg PO TID PRN PRN Reason: Pain, moderate (4-7) - Labs Labs: 02/23/17 08:09 02/23/17 08:09 - Head Exam Head Exam: ATRAUMATIC, NORMAL INSPECTION - Eye Exam Eye Exam: EOMI - ENT Exam ENT Exam: Mucous Membranes Dry - Respiratory Exam Respiratory Exam: Decreased Breath Sounds, Clear to Ausculation Bilateral, NORMAL BREATHING PATTERN. absent: Rhonchi, Wheezes - Cardiovascular Exam Cardiovascular Exam: REGULAR RHYTHM, +S1, +S2 - GI/Abdominal Exam GI & Abdominal Exam: Soft, Normal Bowel Sounds. absent: Distended, Tenderness - Extremities Exam Extremities Exam: absent: Normal Inspection (joint deformities and changes secondary to RA.), Pedal Edema, Tenderness - Neurological Exam Neurological Exam: Alert, Awake, Oriented x3 - Psychiatric Exam Psychiatric exam: Normal Affect, Normal Mood - Skin Skin Exam: Dry, Normal Color, Warm Additional comments: Left breast dressing- clean, dry, intact. Assessment and Plan (1) Invasive ductal carcinoma of breast, stage 3 Assessment & Plan: Stage IV, ER/ME negative, HER2 positive. Patient declined systemic treatment. Continue supportive treatment and local wound care. Status: Acute (2) Anemia Assessment & Plan: Iron deficiency anemia. Replace iron as needed. Status: Acute <Sam Hlot - Last Filed: 02/23/17 12:42> Objective - Vital Signs/Intake and Output Vital Signs (last 24 hours): Temp Pulse Resp BP Pulse Ox 98.0 F 87 20 104/62 97 02/23/17 08:07 02/23/17 08:07 02/23/17 08:07 02/23/17 08:07 02/23/17 08:07 Intake and Output: 02/23/17 02/23/17 06:59 18:59 Intake Total 500 Balance 500 - Medications Medications: Current Medications Acetaminophen (Tylenol 325mg Tab) 975 mg PO Q6 PRN PRN Reason: Fever >100.4 F Docusate Sodium (Colace) 100 mg PO BID [facility] Last Admin: 02/23/17 09:56 Dose: 100 mg Doxycycline Hyclate (Doryx) 100 mg PO Q12H [facility] Last Admin: 02/23/17 09:00 Dose: Not Given Sodium Chloride (Sodium Chloride 0.9%) 1,000 mls @ 50 mls/hr IV .Q20H [facility] Last Admin: 02/22/17 15:04 Dose: 50 mls/hr Vancomycin HCl 1 gm/ Sodium (Chloride) 250 mls @ 166.7 mls/hr IVPB Q24H [facility] Last Admin: 02/22/17 22:15 Dose: 166.7 mls/hr Morphine Sulfate (Morphine) 2 mg IVP Q6H PRN PRN Reason: Pain, severe (8-10) Tramadol HCl (Ultram) 50 mg PO TID PRN PRN Reason: Pain, moderate (4-7) - Labs Labs: 02/23/17 08:09 02/23/17 08:09 Assessment and Plan - Assessment and Plan (Free Text) Assessment: Pt seen and examined, agree with residents note. Deferred systemic chemotherapy for breast cancer. Local wound care for chest wall/breast tumor.
--- NOTE | 2017-02-23 13:16 | CP.PCM.PN ---
Subjective - Date & Time of Evaluation Date of Evaluation: 02/23/17 Time of Evaluation: 10:45 - Subjective Subjective: General Surgery Dr. Trinidad Pt S&E @bedside. NAEO. no complaints. tolerating diet Objective - Vital Signs/Intake and Output Vital Signs (last 24 hours): Temp Pulse Resp BP Pulse Ox 98.0 F 87 20 104/62 97 02/23/17 08:07 02/23/17 08:07 02/23/17 08:07 02/23/17 08:07 02/23/17 08:07 Intake and Output: 02/23/17 02/23/17 06:59 18:59 Intake Total 500 Balance 500 - Medications Medications: Current Medications Acetaminophen (Tylenol 325mg Tab) 975 mg PO Q6 PRN PRN Reason: Fever >100.4 F Docusate Sodium (Colace) 100 mg PO BID [facility] Last Admin: 02/23/17 09:56 Dose: 100 mg Doxycycline Hyclate (Doryx) 100 mg PO Q12H [facility] Last Admin: 02/23/17 09:00 Dose: Not Given Sodium Chloride (Sodium Chloride 0.9%) 1,000 mls @ 50 mls/hr IV .Q20H [facility] Last Admin: 02/22/17 15:04 Dose: 50 mls/hr Vancomycin HCl 1 gm/ Sodium (Chloride) 250 mls @ 166.7 mls/hr IVPB Q24H [facility] Last Admin: 02/22/17 22:15 Dose: 166.7 mls/hr Morphine Sulfate (Morphine) 2 mg IVP Q6H PRN PRN Reason: Pain, severe (8-10) Tramadol HCl (Ultram) 50 mg PO TID PRN PRN Reason: Pain, moderate (4-7) - Labs Labs: 02/23/17 08:09 02/23/17 08:09 - Constitutional Appears: Non-toxic, No Acute Distress, Chronically Ill - Head Exam Head Exam: NORMAL INSPECTION - Eye Exam Eye Exam: Normal appearance - ENT Exam ENT Exam: Mucous Membranes Moist - Respiratory Exam Respiratory Exam: NORMAL BREATHING PATTERN. absent: Accessory Muscle Use, Respiratory Distress - Cardiovascular Exam Cardiovascular Exam: absent: Bradycardia, Tachycardia - GI/Abdominal Exam GI & Abdominal Exam: Soft. absent: Tenderness - Extremities Exam Extremities Exam: Normal Inspection - Neurological Exam Neurological Exam: Alert, Awake, Oriented x3 - Psychiatric Exam Psychiatric exam: Normal Affect, Normal Mood - Skin Skin Exam: Dry, Normal Color, Warm - Additional Findings Additional findings: L breast dressing c/d/i Assessment and Plan - Assessment and Plan (Free Text) Assessment: 51 y/o F w/ recurrent bleeding L breast mass - dressing changes QOD - discussed possible palliative chemo/radiation/surgery for recurrent bleeding - cont medical management - pt cleared for discharge fro surgical standpoint - Pt to follow up in clinic if needed Pt discussed w/ Dr. Amos Banuelos DO PGY2
[2017-02-23] MEDS: Sodium Chloride 0.9% 1,000 ML IV SCH (13:53)
--- NOTE | 2017-02-23 15:57 | CP.PCM.CON ---
History of Present Illness - History of Present Illness History of Present Illness: Palliative consult Requested by OceanaKaleb BARBOSA Reason: Goals of care discussion Patient is a 51 yo female admitted with infected left breast, draining wound. Patient was diagnosed with breast CA 4 months ago here at [facility]. Patient was fallowing up with Doctor jonathon and Doctor Amos as an outpatient. Patient declined chemo Tx all along. Recently the left beast mass begun bleeding. patient was given VNS for dressing changes, but as per patient, every time dressing was changed, bleeding was justin pronaunced. Once, the bleeding was severe to the point, that she needed blood transfusion. On this admission the left breast wound was positive for Pseudomonas and Gram Positive cocci. Vanco IV initiated. PMH: RA, bed ridden, body image disturbance, anemia, breast cancer Soc. hx: lives with parents and son and daughter Fam> Hx: father with HTN, mother with DM Review of Systems - Constitutional Constitutional: Weakness - EENT Eyes: absent: As Per HPI, Blind Spots, Blurred Vision, Change in Vision, Decreased Night Vision, Diplopia, Discharge, Dry Eye, Exophthalmos, Floaters, Irritation, Itchy Eyes, Loss of Peripheral Vision, Pain, Photophobia, Requires Corrective Lenses, Sees Flashes, Spots in Vision, Tunnel Vision, Other Visual Disturbances, Loss of Vision, Other Ears: absent: As Per HPI, Decreased Hearing, Ear Discharge, Ear Pain, Tinnitus, Abnormal Hearing, Disequilibrium, Dizziness, Other Nose/Mouth/Throat: absent: As Per HPI, Epistaxis, Nasal Congestion, Nasal Discharge, Nasal Obstruction, Nasal Trauma, Nose Pain, Post Nasal Drip, Sinus Pain, Sinus Pressure, Bleeding Gums, Change in Voice, Dental Pain, Dry Mouth, Dysphagia, Halitosis, Hoarsness, Lip Swelling, Mouth Lesions, Mouth Pain, Odynophagia, Sore Throat, Throat Swelling, Tongue Swelling, Facial Pain, Neck Pain, Neck Mass, Other - Breasts Additional comments: left breast wound - Cardiovascular Cardiovascular: absent: As Per HPI, Acrocyanosis, Chest Pain, Chest Pain at Rest , Chest Pain with Activity, Claudication, Diaphoresis, Dyspnea, Dyspnea on Exertion, Edema, Irregular Heart Rhythm, Pain Radiating to Arm/Neck/Jaw, Leg Edema, Leg Ulcers, Lightheadedness, Orthopnea, Palpitations, Paroxysmal Nocturnal Dyspnea, Pedal Edema, Radiating Pain, Rapid Heart Rate, Slow Heart Rate, Syncope, Other - Respiratory Respiratory: absent: As Per HPI, Cough, Dyspnea, Hemoptysis, Dyspnea on Exertion , Wheezing, Snoring, Stridor, Pain on Inspiration, Chest Congestion, Excessive Mucous Production, Change in Mucous Color, Pain with Coughing, Other - Gastrointestinal Gastrointestinal: absent: As Per HPI, Abdominal Pain, Belching, Bloating, Change in Bowel Habits, Change in Stool Character, Coffee Ground Emesis, Constipation, Cramping, Diarrhea, Dyspepsia, Dysphagia, Early Satiety, Excessive Flatus, Fecal Incontinence, Heartburn, Hematemesis, Hematochezia, Loose Stools, Melena, Nausea, Odynophagia, Temesmus, Vomiting, Other - Genitourinary Genitourinary: absent: As Per HPI, Change in Urinary Stream, Difficulty Urinating, Dysuria, Flank Pain, Hematuria, Pyuria, Nocturia, Urinary Incontinence, Urinary Frequency, Urinary Hesitance, Urinary Urgency, Voiding Freq/Small Amts, Freq UTI, Hx Renal/Bladder Calculi, Hx /Renal Surgery, Bladder Distension, Other - Reproductive: Female Reproductive:Female: Post Menopausal - Menstruation Menstruation: Post Menopausal - Musculoskeletal Musculoskeletal: Arthralgias, Deformity, Joint Swelling, Limited Range of Motion , Myalgias, Stiffness - Integumentary Integumentary: Non-Healing Lesions, Wounds - Neurological Neurological: absent: As Per HPI, Abnormal Gait, Abnormal Hearing, Abnormal Movements, Abnormal Speech, Behavioral Changes, Burning Sensations, Confusion, Convulsions, Disequilibrium, Dizziness, Numbness, Focal Weakness, Frequent Falls , Headaches, Lack of Coordination, Loss of Vision, Memory Loss, Paresthesias, Radicular Pain, Restless Legs, Sensory Deficit, Syncope, Tingling, Tremor, Vertigo, Weakness, Other Visual Disturbances, Other - Psychiatric Psychiatric: Anxiety - Endocrine Endocrine: absent: As Per HPI, Change in Body Appearance, Change in Libido, Cold Intolorance, Deepening of Voice, Excessive Sweating, Fatigue, Flushing, Heat Intolorance, Increase in Ring/Shoe/Hat Size, Palpitations, Polydipsia, Polyphagia, Polyuria, Other - Hematologic/Lymphatic Hematologic: absent: As Per HPI, Easy Bleeding, Easy Bruising, Lymphadenopathy, Other Past Patient History - Infectious Disease Hx of Infectious Diseases: None - Past Medical History & Family History Past Medical History?: Yes - Past Social History Smoking Status: Never Smoked - CARDIAC Hx Cardiac Disorders: No - PULMONARY Hx Respiratory Disorders: No - NEUROLOGICAL Hx Neurological Disorder: No - HEENT Hx HEENT Problems: No - RENAL Hx Chronic Kidney Disease: No - ENDOCRINE/METABOLIC Hx Endocrine Disorders: No - HEMATOLOGICAL/ONCOLOGICAL Hx Anemia: Yes - INTEGUMENTARY Hx Dermatological Problems: Yes Other/Comment: left upper chest mass - MUSCULOSKELETAL/RHEUMATOLOGICAL Hx Arthritis: Yes (severe athritis) Hx Rheumatoid Arthritis: Yes - GASTROINTESTINAL Hx Gastrointestinal Disorders: No - GENITOURINARY/GYNECOLOGICAL Other/Comment: menopausal. breast CA - PSYCHIATRIC Hx Anxiety: Yes Hx Substance Use: No - SURGICAL HISTORY Hx Surgeries: Yes Hx Breast Biopsy: Yes Hx Section: Yes (x2) Other/Comment: d&c - ANESTHESIA Hx Anesthesia: Yes Hx Anesthesia Reactions: No Meds Home Medications: Home Medication List Medication Instructions Recorded Confirmed Type Doxycycline Oral Susp [Vibramycin 25 mg PO BID 10 Days #400 ml 02/23/17 Rx Oral Susp] Ondansetron ODT [Zofran ODT] 8 mg PO Q8H PRN #20 odt 02/23/17 Rx Saccharomyces Boulardi [Florastor] 250 mg PO DAILY #30 cap 02/23/17 Rx Allergies/Adverse Reactions: Allergies Allergy/AdvReac Type Severity Reaction Status Date / Time ciprofloxacin [From Cipro] Allergy SWELLING Verified 02/20/17 18:32 ibuprofen Allergy Verified 02/20/17 18:32 magnesium Allergy CONGESTION Verified 02/20/17 18:32 Penicillins Allergy SWELLING Verified 02/20/17 18:32 diphenhydramine AdvReac numbness Verified 02/20/17 18:32 [From Benadryl] on tongue and throath - Medications Medications: Current Medications Acetaminophen (Tylenol 325mg Tab) 975 mg PO Q6 PRN PRN Reason: Fever >100.4 F Docusate Sodium (Colace) 100 mg PO BID [facility] Last Admin: 02/23/17 09:56 Dose: 100 mg Doxycycline Hyclate (Doryx) 100 mg PO Q12H [facility] Last Admin: 02/23/17 09:00 Dose: Not Given Sodium Chloride (Sodium Chloride 0.9%) 1,000 mls @ 50 mls/hr IV .Q20H [facility] Last Admin: 02/23/17 13:53 Dose: Not Given Vancomycin HCl 1 gm/ Sodium (Chloride) 250 mls @ 166.7 mls/hr IVPB Q24H [facility] Last Admin: 02/22/17 22:15 Dose: 166.7 mls/hr Morphine Sulfate (Morphine) 2 mg IVP Q6H PRN PRN Reason: Pain, severe (8-10) Tramadol HCl (Ultram) 50 mg PO TID PRN PRN Reason: Pain, moderate (4-7) Physical Exam - Constitutional Appears: Chronically Ill - Head Exam Head Exam: ATRAUMATIC, NORMAL INSPECTION, NORMOCEPHALIC - Eye Exam Eye Exam: EOMI, Normal appearance, PERRL Pupil Exam: NORMAL ACCOMODATION - ENT Exam ENT Exam: Mucous Membranes Moist, Normal Exam - Neck Exam Neck exam: Positive for: Normal Inspection - Respiratory Exam Respiratory Exam: Clear to Auscultation Bilateral, NORMAL BREATHING PATTERN - Cardiovascular Exam Cardiovascular Exam: REGULAR RHYTHM - GI/Abdominal Exam GI & Abdominal Exam: Normal Bowel Sounds, Soft - Rectal Exam Rectal Exam: Deferred - Extremities Exam Extremities exam: Positive for: normal inspection Additional comments: deformities to hands and feet due to osteoarthritis - Back Exam Back exam: NORMAL INSPECTION - Neurological Exam Neurological exam: Alert, Oriented x3 - Psychiatric Exam Psychiatric exam: Depressed - Skin Skin Exam: Normal Color, Warm Results - Vital Signs Recent Vital Signs: Last Vital Signs Temp 98.0 F 02/23/17 08:07 Pulse 87 02/23/17 08:07 Resp 20 02/23/17 08:07 BP 104/62 02/23/17 08:07 Pulse Ox 97 02/23/17 08:07 - Labs Result Diagrams: 02/23/17 08:09 02/23/17 08:09 Labs: Laboratory Results - last 24 hr 02/22/17 02/22/17 02/23/17 17:14 17:14 08:09 WBC 6.0 6.5 RBC 3.90 3.71 L Hgb 9.3 L 8.8 L Hct 28.8 L 27.4 L MCV 74.0 L 73.9 L MCH 23.8 L 23.7 L MCHC 32.2 L 32.1 L RDW 18.0 H 17.8 H Plt Count 164 D 302 D MPV 7.9 7.4 Neut % (Auto) 75.7 H 70.5 Lymph % (Auto) 16.0 L 17.0 L Alexander % (Auto) 3.5 5.5 Eos % (Auto) 4.3 H 6.7 H Baso % (Auto) 0.5 0.3 Neut # 4.5 4.6 Lymph # 1.0 1.1 Alexander # 0.2 0.4 Eos # 0.3 0.4 Baso # 0.0 0.0 Sodium 135 Potassium 4.2 Chloride 107 Carbon Dioxide 20 L Anion Gap 12 BUN 11 Creatinine 0.3 L Est GFR ( Amer) > 60 Est GFR (Non-Af Amer) > 60 Random Glucose 115 H Calcium 8.4 L Ferritin 85.8 Total Bilirubin AST ALT Alkaline Phosphatase Total Protein Albumin Globulin Albumin/Globulin Ratio 02/23/17 08:09 WBC RBC Hgb Hct MCV MCH MCHC RDW Plt Count MPV Neut % (Auto) Lymph % (Auto) Alexander % (Auto) Eos % (Auto) Baso % (Auto) Neut # Lymph # Alexander # Eos # Baso # Sodium 137 Potassium 3.4 L Chloride 107 Carbon Dioxide 21 L Anion Gap 12 BUN 7 Creatinine 0.4 L Est GFR ( Amer) > 60 Est GFR (Non-Af Amer) > 60 Random Glucose 77 Calcium 8.3 L Ferritin Total Bilirubin 0.3 AST 22 ALT 18 Alkaline Phosphatase 76 Total Protein 7.2 Albumin 2.7 L Globulin 4.5 H Albumin/Globulin Ratio 0.6 L Assessment & Plan - Assessment and Plan (Free Text) Assessment: Palliative consult Code status Full Code, no Advance Directive/ Living Will on chart. I reviewed medical records, all diagnostic studies, examined and interviewed patient in the bed. patient is alert, oriented X 3, looking chronically ill, in no acute distress. The fingers and oes are deformed due to OA. Limited ROM to LEs. Patient is bedridden. Left breast dressing in place. Patient prefers patient not to be touched as it is causing excessive bleeding. Denies pain. All organ systems reviewed and are negative except mentioned above. Goals of care discussed. Patient aware of her diagnosis. Doctor jonathon suggests chemo Tx what patient declines. I elicited her reason against chemo Tx. Patient is concerned with possible side effects. I corrected her knowledge on ususal progress of cancer. its symptoms and consequences if not treated. i also discussed the possible side effects of chemo therapy. However, I occuraged patient to reconsider one more time her decision against chemo Tx. This was discussed to Doctor Jonathon. Code status discussed. I reviewed Allow natural meaning. Patient was very clear that if her condition worsens and she looses quality of life where meaningful recovery was not expected, she woul want to be allowed natural . I suggest we put those wishes on the paper. By the time I returned with ADARSH, patient said she changed her mind after talking to her mother. Patient chose not to decide on Code status at this time . She would want her parents and her childrn to advocate for her if she looses ability making decision. Impression * This is a chronically ill patient diagnosed with breast cancer 4 months ago * Disease has progressed and is stage 3 now * patient refuses chemo tx s she is conceded with possible side effects * patient is undecided on Code status and wants her children and parents to advocate for her in case she looses ability to do so Suggestion * Symptoms treatment * Full Code * Discharge home with VNS for left breast wound care
[2017-02-23 16:21] VITALS: BP 116/64; PULSE 91; TEMP 99; O2SAT 99
[2017-02-23] MEDS ORDERED: Influenza Vaccine 60 mcg/0.5 mL SYR (4YR UP) IM ONE (17:00)
--- NOTE | 2017-02-23 22:44 | CP.PCM.PN ---
Subjective - Date & Time of Evaluation Date of Evaluation: 02/23/17 Time of Evaluation: 22:44 - Subjective Subjective: afebrile, TMAX 99.0 No acute events overnight. FEELING BETTER WOUND CULTURE LEFT BREAST +VE PSEUDOMONAS/GRAM-POSITIVE COCCI. ON iv VANCOMYCIN PO VIBRAMYCIN Objective - Vital Signs/Intake and Output Vital Signs (last 24 hours): Temp Pulse Resp BP Pulse Ox 99.0 F 91 H 20 116/64 99 02/23/17 15:00 02/23/17 15:00 02/23/17 15:00 02/23/17 15:00 02/23/17 15:00 - Medications Medications: Current Medications Acetaminophen (Tylenol 325mg Tab) 975 mg PO Q6 PRN PRN Reason: Fever >100.4 F Docusate Sodium (Colace) 100 mg PO BID [facility] Last Admin: 02/23/17 18:02 Dose: Not Given Doxycycline Hyclate (Doryx) 100 mg PO Q12H [facility] Last Admin: 02/23/17 20:14 Dose: Not Given Sodium Chloride (Sodium Chloride 0.9%) 1,000 mls @ 50 mls/hr IV .Q20H [facility] Last Admin: 02/23/17 13:53 Dose: Not Given Vancomycin HCl 1 gm/ Sodium (Chloride) 250 mls @ 166.7 mls/hr IVPB Q24H [facility] Last Admin: 02/22/17 22:15 Dose: 166.7 mls/hr Morphine Sulfate (Morphine) 2 mg IVP Q6H PRN PRN Reason: Pain, severe (8-10) Tramadol HCl (Ultram) 50 mg PO TID PRN PRN Reason: Pain, moderate (4-7) - Labs Labs: 02/23/17 08:09 02/23/17 08:09 - Constitutional Appears: No Acute Distress, Cachectic, Chronically Ill - Head Exam Head Exam: NORMAL INSPECTION - Eye Exam Eye Exam: EOMI, PERRL - ENT Exam ENT Exam: Mucous Membranes Moist (poor oral hygiene. Many teeth missing.) - Neck Exam Neck Exam: Normal Inspection - Respiratory Exam Respiratory Exam: Decreased Breath Sounds, NORMAL BREATHING PATTERN - Cardiovascular Exam Cardiovascular Exam: REGULAR RHYTHM, +S1, +S2 - GI/Abdominal Exam GI & Abdominal Exam: Soft, Normal Bowel Sounds - Extremities Exam Extremities Exam: absent: Calf Tenderness, Pedal Edema (bilateral feet and hands deformity secondary to rheumatoid arthritis. Onychomycosis of the nails.) - Neurological Exam Neurological Exam: Awake, Oriented x3 - Psychiatric Exam Psychiatric exam: Normal Mood - Skin Skin Exam: Rash (LEFT BREAST COVERED WITH DRESSING.), Warm Assessment and Plan (1) Breast mass, left Status: Acute (2) Invasive ductal carcinoma of breast, stage 3 Status: Acute (3) Bleeding from breast Status: Acute (4) Anemia Status: Acute (5) Protein calorie malnutrition Status: Acute - Assessment and Plan (Free Text) Plan: CONTINUE iv VANCOMYCIN 1 G ONCE A DAY DAILY.02/20/17 DC PO VIBRAMYCIN. START iv AZACTAM 500 MG EVERY 12 HOURLY IN A.M.( GIVE TEST DOSE 50 MG iv PIGGYBACK TO INFUSE OVER IN 90 MIN ) iF TOLERATED CAN START 500 EVERY 12 HOURLY. LOCAL WOUND CARE PER SURGERY. ADDENDUM; PER DISCUSSION WITH STAFF PT GABBY NOW DC AT 11.30PM.
== END 2017-02-23 23:37 | disposition home or self-care (01) | DRG 598 ==
LOC: C.ER 18:16 → C.9E 21:05 → C.3T 22:57 → OBSVTOIN 02-22 15:31
PROVIDERS: ADMIT Internal Medicine Nephrology; ATTEND Internal Medicine Nephrology
DX: C50.912 Malignant neoplasm of unspecified site of left female breast (principal); N61.1 Abscess of the breast and nipple; E46 Unspecified protein-calorie malnutrition; D50.9 Iron deficiency anemia, unspecified; M06.9 Rheumatoid arthritis, unspecified; R13.10 Dysphagia, unspecified; Z17.0 Estrogen receptor positive status [ER+]; Z74.01 Bed confinement status; Z88.1 Allergy status to other antibiotic agents; Z88.0 Allergy status to penicillin; Z88.8 Allergy status to other drugs, medicaments and biological substances

== ENCOUNTER 2017-04-05 16:47 | Inpatient (IN) | payer MEDICARE, OTHER ==
[2017-04-05 17:03] VITALS: BMI 23.2
[2017-04-05] MEDS ORDERED: Sodium Chloride 0.9% 1,000 ML IV ONE ×7 (18:07→22:50)
[2017-04-05] MEDS ORDERED: Sodium Chloride 0.9% 1,000 ML ONE (18:08)
[2017-04-05 18:11] LABS: BASO # 0.1 K/uL (0.0-0.2); BASO % 0.5 % (0.0-2.0); EOS # 0.2 K/uL (0.0-0.7); HEMATOCRIT 24.7 % (34.0-47.0); MEAN CORPUSCULAR HEMOGLOBIN 21.1 pg (27.0-31.0); MEAN PLATELET VOLUME 7.4 fL (7.2-11.7); MONO # 0.7 K/uL (0.0-0.8); MONO % 4.2 % (0.0-10.0); RED CELL DISTRIBUTION WIDTH 17.5 % (11.5-14.5)
[2017-04-05 18:14] LABS: MEAN CELL VOLUME 70.3 fL (81.0-99.0); PLATELET COUNT 492 K/uL (130-400); WHITE BLOOD COUNT 17.2 K/uL (4.8-10.8)
[2017-04-05 18:18] LABS: ALKALINE PHOSPHATASE 82 U/L (38-126); ALT/SGPT 26 U/L (9-52); AST/SGOT 25 U/L (14-36); BILIRUBIN,TOTAL 0.4 mg/dL (0.2-1.3); BLOOD UREA NITROGEN 16 mg/dL (7-17); CALCIUM 7.5 mg/dl (8.6-10.4); CARBON DIOXIDE 23 mmol/L (22-30); CHLORIDE 101 mmol/L (98-107); GFR AFRICAN-AMERICAN > 60; GLUCOSE,RANDOM 205 mg/dL (65-105); POTASSIUM 4.1 mmol/L (3.6-5.2); SODIUM 131 mmol/L (132-148); TOTAL PROTEIN 6.1 g/dL (6.3-8.3)
[2017-04-05 18:19] LABS: ALB/GLOB RATIO 0.7 (1.0-2.1)
[2017-04-05 18:27] LABS: NEUTROPHIL 88 % (50-75); TOTAL CELLS COUNTED 100
--- NOTE | 2017-04-05 18:30 | C.PDOC ---
History Of Present Illness 51 y/o female with a hx of metastatic left breast cancer, comes in c/o periodic bleeding to the left breast tissue that last occurred today. Patient reports that she refused surgery and chemotherapy for the cancer, but has to change the dressing covering her breast tissue periodically. Due to it being raw, it bleeds periodically and the dressing has to be changed periodically as well. Today while the visiting nurse was changing the dressing, her left breast began to bleed, which prompted the visit. Patient denies fever, chills, chest pain, SOB, or rash. Time Seen by Provider: 04/05/17 16:50 Chief Complaint (Nursing): Abnormal Skin Integrity History Per: Patient History/Exam Limitations: no limitations Onset/Duration Of Symptoms: Hrs Current Symptoms Are (Timing): Still Present Severity: Mild Recent travel outside of the [place]: No Additional History Per: Patient Past Medical History Reviewed: Historical Data, Nursing Documentation, Vital Signs Vital Signs: Last Vital Signs Temp 99.3 F 04/05/17 17:00 Pulse 110 H 04/05/17 18:31 Resp 16 04/05/17 18:31 BP 105/66 04/05/17 18:31 Pulse Ox 100 04/05/17 18:43 - Medical History PMH: Anemia, Anxiety, Arthritis (severe athritis), Malignancy, Rheumatoid Arthritis Denies: Chronic Kidney Disease - [facility] Procedures EXCISION OF LEFT BREAST, OPEN APPROACH, DIAGNOSTIC (11/06/16) Family History: States: Unknown Family Hx - Social History Hx Tobacco Use: No Hx Alcohol Use: No Hx Substance Use: No - Immunization History Hx Tetanus Toxoid Vaccination: No Hx Influenza Vaccination: No Hx Pneumococcal Vaccination: No Review Of Systems Except As Marked, All Systems Reviewed And Found Negative. Constitutional: Negative for: Fever, Chills Cardiovascular: Negative for: Chest Pain Respiratory: Negative for: Shortness of Breath Skin: Positive for: Other ( bleeding to the left breast tissue ). Negative for : Rash Physical Exam - Physical Exam Appears: No Acute Distress, Chronically Ill Skin: Warm, Dry, No Rash, Other (Dressing over left breast and axilla) Head: Atraumatic, Normacephalic Chest: Other (dressing over left axilla and breast moderate amounts ob bloody drainage) Cardiovascular: Rhythm Regular Respiratory: Normal Breath Sounds, No Rales, No Rhonchi, No Wheezing Gastrointestinal/Abdominal: Soft, No Tenderness Neurological/Psych: Oriented x3 ED Course And Treatment - Laboratory Results Result Diagrams: 04/05/17 18:02 04/05/17 18:02 Lab Interpretation: Abnormal O2 Sat by Pulse Oximetry: 100 (RA) Pulse Ox Interpretation: Normal Progress Note: Patient arrived via BLS with bleeding from left breast. Patient refuses to alow anyone to remove dressing in ED and request surgery to be notifies. Case discussed with resident manager who will evaluate in ED. Patient arrived tachycardic and hypotensive. treated with IVF NSS and B/P 100/ 60. Case discussed with Dr Gisella Martinez and agrees to admit Reassessment Condition: Improved - Physician Consult Information Physician Contacted: Shan Martinez Outcome Of Conversation: admit Medical Decision Making Medical Decision Making: Plans: * Blood labs * IV fluids * Admit Disposition Discussed With Dr.: Shan Martinez Doctor Will See Patient In The: Hospital - Disposition Disposition: HOSPITALIZED Disposition Time: 18:40 Condition: STABLE - POA Present On Arrival: None - Clinical Impression Clinical Impression: Skin irritation, Bleeding, Tachycardia, Breast cancer, Bleeding from breast - Scribe Statement The provider has reviewed the documentation as recorded by the Scribe Mini shipman All medical record entries made by the Scribe were at my direction and personally dictated by me. I have reviewed the chart and agree that the record accurately reflects my personal performance of the history, physical exam, medical decision making, and the department course for this patient. I have also personally directed, reviewed, and agree with the discharge instructions and disposition.
--- NOTE | 2017-04-05 19:38 | CP.PCM.HP ---
History of Present Illness - History of Present Illness History of Present Illness: A 51-year-old female with PMHmetastatic left breast cancer presents to the ER for C/Obleeding from her left breast tissue. C/Obleeding from the left breast tissue since 1 day. Patient has previously refused surgery and chemotherapy for cancer but has to change her dressing of her breast tissue periodically for 3-4 days. Bleeding was moderate in quantity , soaking 3-4 quadrant pain. C/O-raw area over the breast tissue. No C/Ofever, chills, chest pain, shortness of breath. Present on Admission - Present on Admission Any Indicators Present on Admission: No Past Patient History - Infectious Disease Hx of Infectious Diseases: None - Past Medical History & Family History Past Medical History?: Yes - Past Social History Smoking Status: Never Smoked - CARDIAC Hx Cardiac Disorders: No - PULMONARY Hx Respiratory Disorders: No - NEUROLOGICAL Hx Neurological Disorder: No - HEENT Hx HEENT Problems: No - RENAL Hx Chronic Kidney Disease: No - ENDOCRINE/METABOLIC Hx Endocrine Disorders: No - HEMATOLOGICAL/ONCOLOGICAL Hx Anemia: Yes - INTEGUMENTARY Hx Dermatological Problems: Yes Other/Comment: left upper chest mass - MUSCULOSKELETAL/RHEUMATOLOGICAL Hx Arthritis: Yes (severe athritis) Hx Rheumatoid Arthritis: Yes - GASTROINTESTINAL Hx Gastrointestinal Disorders: No - GENITOURINARY/GYNECOLOGICAL Other/Comment: menopausal. breast CA - PSYCHIATRIC Hx Anxiety: Yes Hx Substance Use: No - SURGICAL HISTORY Hx Surgeries: Yes Hx Breast Biopsy: Yes Hx Section: Yes (x2) Other/Comment: d&c - ANESTHESIA Hx Anesthesia: Yes Hx Anesthesia Reactions: No Meds Allergies/Adverse Reactions: Allergies Allergy/AdvReac Type Severity Reaction Status Date / Time ciprofloxacin [From Cipro] Allergy SWELLING Verified 04/05/17 17:03 ibuprofen Allergy Verified 04/05/17 17:03 magnesium Allergy CONGESTION Verified 04/05/17 17:03 Penicillins Allergy SWELLING Verified 04/05/17 17:03 diphenhydramine AdvReac numbness Verified 04/05/17 17:03 [From Benadryl] on tongue and throath Physical Exam - Constitutional Appears: Well - Head Exam Head Exam: ATRAUMATIC, NORMAL INSPECTION, NORMOCEPHALIC - Eye Exam Eye Exam: EOMI, Normal appearance, PERRL Pupil Exam: NORMAL ACCOMODATION, PERRL - ENT Exam ENT Exam: Mucous Membranes Moist, Normal Exam - Neck Exam Neck exam: Positive for: Normal Inspection - Respiratory Exam Respiratory Exam: Decreased Breath Sounds - Cardiovascular Exam Cardiovascular Exam: REGULAR RHYTHM, +S1, +S2 - GI/Abdominal Exam GI & Abdominal Exam: Diminished Bowel Sounds, Soft - Rectal Exam Rectal Exam: Deferred Results - Vital Signs Recent Vital Signs: Last Vital Signs Temp 99.3 F 04/05/17 17:00 Pulse 118 H 04/05/17 19:32 Resp 13 04/05/17 19:32 BP 95/49 L 04/05/17 19:32 Pulse Ox 100 04/05/17 19:32 - Labs Result Diagrams: 04/06/17 12:43 04/06/17 06:15 Labs: Laboratory Results - last 24 hr 04/05/17 04/05/17 04/05/17 18:02 18:02 18:07 WBC 17.2 H D RBC 3.51 L Hgb 7.4 L Hct 24.7 L MCV 70.3 L D MCH 21.1 L MCHC 30.0 L RDW 17.5 H Plt Count 492 H D MPV 7.4 Neut % (Auto) 88.3 H Lymph % (Auto) 6.0 L [place] % (Auto) 4.2 Eos % (Auto) 1.0 Baso % (Auto) 0.5 Neut # 15.2 H Lymph # 1.0 [place] # 0.7 Eos # 0.2 Baso # 0.1 Neutrophils % (Manual) 88 H Band Neutrophils % 2 Lymphocytes % (Manual) 4 L Monocytes % (Manual) 6 Platelet Estimate Normal Hypochromasia (manual) Moderate Poikilocytosis (manual Moderate Anisocytosis (manual) Moderate Microcytosis (manual) Slight Macrocytosis (manual) Slight Target Cells Slight Tear Drop Cells Slight Ovalocytes Slight Suad Cells Slight Sodium 131 L Potassium 4.1 Chloride 101 Carbon Dioxide 23 Anion Gap 11 BUN 16 Creatinine 0.5 L Est GFR ( Amer) > 60 Est GFR (Non-Af Amer) > 60 POC Glucose (mg/dL) 245 H Random Glucose 205 H Calcium 7.5 L Total Bilirubin 0.4 AST 25 ALT 26 Alkaline Phosphatase 82 Total Protein 6.1 L Albumin 2.5 L Globulin 3.6 Albumin/Globulin Ratio 0.7 L
[2017-04-05] MEDS ORDERED: Potassium Ch 20mEq in D5-1/2NS 1,000 ML IV SCH (19:45)
[2017-04-05] MEDS ORDERED: Absorbable Gelatin Sponge Size 100 MM ONE (21:10)
--- NOTE | 2017-04-05 22:22 | CP.PCM.CON ---
History of Present Illness - History of Present Illness History of Present Illness: 51 y/o female with a hx of metastatic left breast invasive ductal carcinoma grade 3, Rheumatoid arthritis,bed bound,anemia comes in c/o profuse bleeding to the left breast mass since 4:00pm.. Patient reports that she refused surgery and chemotherapy for the cancer, but has to change the dressing covering her breast tissue periodically. Due to it being raw, it bleeds and the dressing has to be changed .. Today while the visiting nurse was changing the dressing, her left breast began to bleed, which prompted the visit. Patient denies fever, chills, chest pain, SOB, or rash. In ER dressing changed multiple times due to soaked gauze with episodes of hypotension. c/o dizziness.denies pain In Er initial Hb was 7.4.Patient states her baseline Hb is between 9-10.Hb on was 8.8 She has been admitted to in december and February 2017 for the same complaint CT Chest 10/2016- 5.2 x 4 x 4.3 cm left breast mass with left axillary lymphadenopathy,pulmonary nodules and bone lesions Review of Systems - Review of Systems Systems not reviewed;Unavailable: Unstable Vital Signs - Constitutional Constitutional: Fatigue, Weight Loss. absent: Anorexia, Chills, Fever - EENT Eyes: absent: Blurred Vision, Loss of Vision Nose/Mouth/Throat: absent: Nasal Congestion, Bleeding Gums, Dysphagia - Breasts Breasts: Mass, Skin Changes - Cardiovascular Cardiovascular: Lightheadedness. absent: Chest Pain, Edema, Pedal Edema - Respiratory Respiratory: absent: Cough, Dyspnea, Pain on Inspiration - Gastrointestinal Gastrointestinal: Nausea. absent: Abdominal Pain, Change in Stool Character, Constipation, Diarrhea, Vomiting - Genitourinary Genitourinary: absent: Change in Urinary Stream, Hematuria - Musculoskeletal Musculoskeletal: Atrophy, Joint Swelling - Integumentary Integumentary: absent: Dry Skin, Jaundice - Neurological Neurological: Dizziness. absent: Numbness, Loss of Vision, Memory Loss, Tremor - Endocrine Endocrine: absent: Cold Intolorance, Palpitations Past Patient History - Infectious Disease Hx of Infectious Diseases: None - Past Medical History & Family History Past Medical History?: Yes - Past Social History Smoking Status: Never Smoked Chewing Tobacco Use: No Cigar Use: No Occupation: unemployed.worked in "management" Alcohol: None Drugs: Denies Home Situation {Lives}: With Family - CARDIAC Hx Cardiac Disorders: No - PULMONARY Hx Respiratory Disorders: No - NEUROLOGICAL Hx Neurological Disorder: No - HEENT Hx HEENT Problems: No - RENAL Hx Chronic Kidney Disease: No - ENDOCRINE/METABOLIC Hx Endocrine Disorders: No - HEMATOLOGICAL/ONCOLOGICAL Hx Anemia: Yes Hx Blood Transfusions: Yes - INTEGUMENTARY Hx Dermatological Problems: Yes Other/Comment: left upper chest mass - MUSCULOSKELETAL/RHEUMATOLOGICAL Hx Arthritis: Yes (severe athritis) Hx Rheumatoid Arthritis: Yes - GASTROINTESTINAL Hx Gastrointestinal Disorders: No - GENITOURINARY/GYNECOLOGICAL Other/Comment: menopausal. breast CA - PSYCHIATRIC Hx Anxiety: Yes Hx Substance Use: No - SURGICAL HISTORY Hx Surgeries: Yes Hx Breast Biopsy: Yes Hx Section: Yes (x2) Other/Comment: d&c - ANESTHESIA Hx Anesthesia: Yes Hx Anesthesia Reactions: No Meds Allergies/Adverse Reactions: Allergies Allergy/AdvReac Type Severity Reaction Status Date / Time ciprofloxacin [From Cipro] Allergy SWELLING Verified 04/05/17 17:03 ibuprofen Allergy Verified 04/05/17 17:03 magnesium Allergy CONGESTION Verified 04/05/17 17:03 Penicillins Allergy SWELLING Verified 04/05/17 17:03 diphenhydramine AdvReac numbness Verified 04/05/17 17:03 [From Benadryl] on tongue and throath - Medications Medications: Current Medications Acetaminophen (Tylenol 325mg Tab) 325 mg PO Q4 PRN PRN Reason: pain Ferrous Sulfate (Feosol) 325 mg PO BID [facility] Sodium Chloride (Sodium Chloride 0.9%) 1,000 mls @ 100 mls/hr IV .Q10H ONE Stop: 04/06/17 04:42 Last Admin: 04/05/17 19:32 Dose: 100 mls/hr Potassium Chloride/Dextrose/Sod Cl (Potassium Chl 20 Meq In D5-1/2ns) 1,000 mls @ 75 mls/hr IV .[id number] DANNA Stop: 04/06/17 09:04 Last Admin: 04/05/17 20:19 Dose: 75 mls/hr Ondansetron HCl (Zofran Odt) 8 mg PO Q8H PRN PRN Reason: Nausea/Vomiting Pantoprazole Sodium (Protonix Ec Tab) 40 mg PO DAILY [facility] Saccharomyces Boulardii (Florastor) 250 mg PO DAILY [facility] Physical Exam - Constitutional Appears: No Acute Distress, Chronically Ill Additional comments: Pallor + - Head Exam Head Exam: ATRAUMATIC, NORMAL INSPECTION, NORMOCEPHALIC - Eye Exam Eye Exam: EOMI, Normal appearance, PERRL. absent: Scleral icterus - ENT Exam ENT Exam: Mucous Membranes Dry - Neck Exam Neck exam: Positive for: Normal Inspection - Respiratory Exam Respiratory Exam: Clear to Auscultation Bilateral, NORMAL BREATHING PATTERN. absent: Respiratory Distress Additional comments: clear to auscultaion anteriorly,unable to sit pt to listen posteriorly - Cardiovascular Exam Cardiovascular Exam: Tachycardia. absent: JVD, Systolic Murmur - GI/Abdominal Exam GI & Abdominal Exam: Normal Bowel Sounds, Soft. absent: Tenderness - Rectal Exam Rectal Exam: Deferred - Extremities Exam Extremities exam: Positive for: joint swelling. Negative for: calf tenderness, pedal edema Additional comments: bilateral knee swelling,knees flexed.atrophied muscles lower extremities - Neurological Exam Neurological exam: Alert, CN II-XII Intact, Oriented x3 - Psychiatric Exam Psychiatric exam: Normal Affect - Skin Skin Exam: Dry, Intact, Pallor, Warm Additional comments: large mass left breast upper outer quadrant with bleeding.Unable to see mass well due to profuse bleeding when dressing is removed Results - Vital Signs Recent Vital Signs: Last Vital Signs Temp 99.3 F 04/05/17 17:00 Pulse 140 H 04/05/17 21:55 Resp 19 04/05/17 21:55 BP 80/38 L 04/05/17 21:55 Pulse Ox 100 04/05/17 21:55 - Labs Result Diagrams: 04/05/17 18:02 04/05/17 18:02 Labs: Laboratory Results - last 24 hr 04/05/17 04/05/17 04/05/17 18:02 18:02 18:07 WBC 17.2 H D RBC 3.51 L Hgb 7.4 L Hct 24.7 L MCV 70.3 L D MCH 21.1 L MCHC 30.0 L RDW 17.5 H Plt Count 492 H D MPV 7.4 Neut % (Auto) 88.3 H Lymph % (Auto) 6.0 L [place] % (Auto) 4.2 Eos % (Auto) 1.0 Baso % (Auto) 0.5 Neut # 15.2 H Lymph # 1.0 [place] # 0.7 Eos # 0.2 Baso # 0.1 Neutrophils % (Manual) 88 H Band Neutrophils % 2 Lymphocytes % (Manual) 4 L Monocytes % (Manual) 6 Platelet Estimate Normal Hypochromasia (manual) Moderate Poikilocytosis (manual Moderate Anisocytosis (manual) Moderate Microcytosis (manual) Slight Macrocytosis (manual) Slight Target Cells Slight Tear Drop Cells Slight Ovalocytes Slight Suad Cells Slight Sodium 131 L Potassium 4.1 Chloride 101 Carbon Dioxide 23 Anion Gap 11 BUN 16 Creatinine 0.5 L Est GFR ( Amer) > 60 Est GFR (Non-Af Amer) > 60 POC Glucose (mg/dL) 245 H Random Glucose 205 H Calcium 7.5 L Total Bilirubin 0.4 AST 25 ALT 26 Alkaline Phosphatase 82 Total Protein 6.1 L Albumin 2.5 L Globulin 3.6 Albumin/Globulin Ratio 0.7 L Crossmatch Enhanced Crossmatch 04/05/17 20:50 WBC RBC Hgb Hct MCV MCH MCHC RDW Plt Count MPV Neut % (Auto) Lymph % (Auto) [place] % (Auto) Eos % (Auto) Baso % (Auto) Neut # Lymph # [place] # Eos # Baso # Neutrophils % (Manual) Band Neutrophils % Lymphocytes % (Manual) Monocytes % (Manual) Platelet Estimate Hypochromasia (manual) Poikilocytosis (manual Anisocytosis (manual) Microcytosis (manual) Macrocytosis (manual) Target Cells Tear Drop Cells Ovalocytes Suad Cells Sodium Potassium Chloride Carbon Dioxide Anion Gap BUN Creatinine Est GFR ( Amer) Est GFR (Non-Af Amer) POC Glucose (mg/dL) Random Glucose Calcium Total Bilirubin AST ALT Alkaline Phosphatase Total Protein Albumin Globulin Albumin/Globulin Ratio Crossmatch See Detail Enhanced Crossmatch See Detail - EKG Data EKG Interpreted by: Myself Rate: Tachycardia - EKG Data EKG comments: sinus tachycardia with inverted/flattened T waves in inferior leads - Imaging and Cardiology Chest x-ray Additional comment: not done Assessment & Plan - Assessment and Plan (Free Text) Assessment: 1.metastatic invasive ductal carcinoma grade 3 (10/2016) presenting with breast mass.Pressure dressings applied with continuous bleeding Transfuse PRBC seen by surgery residents refused treatment in the past 2.Microcytic Anemia-chronic with transfusions in the past. 3.Leucocytosis-last admission culture of breast mass positive for pseudomonas and gram positive cocci will culture and start antibiotics 4.Arthritis analgesics PRN 5.Elevate glucose HbAIC,Fs with coverage 6.Hyponatremia-f/u lytess I spoke to patients family.They want to discuss code status with patient.During her last admission a Palliative care consult done.Patient didnot want to make decision
[2017-04-06] MEDS ORDERED: Sodium Chloride 0.9% 1,000 ML IV ONE ×2 (01:00)
--- NOTE | 2017-04-06 01:08 | PCM.PROC ---
Procedures Attestation:: I certify that I have explained the specified Operation(s) or Procedure(s), risks, benefits and reasonable alternatives to the Patient and/or other person responsible. The opportunity was given to ask questions and all questions answered - Central Line Placement Left Femoral Aseptic technique was employed throughout the procedure: Hand Hygiene done prior to procedure, Full sterile barriers (mask, hair cover, sterile gown, sterile gloves), Chloraprep Antiseptic: 2 minute prep for Femoral CVP Time Out Performed: Yes Pt. Placed on Pulse Ox Monitor: Yes Central Line Prep: Povidone-Iodine 1% Local Anesthesia Used: Lidocaine 1% Ultrasound Used for Placement: No Central Line Lumen Inserted: triple Post Procedure: Sutured in Place, Good Blood Return, All Ports Aspirated, Flushed, Capped, Sterile Dressing Applied Secured by: Suture Post procedure dressing: Chlorhexidine disc (Biopatch) Post Procedure X-Ray: No Patient Tolerated Procedure: Well
[2017-04-06 01:31] LABS: BASO % 0.2 % (0.0-2.0); EOS % 0.1 % (0.0-4.0); MEAN CORPUSCULAR HEMOGLOBIN 27.2 pg (27.0-31.0); MONO # 0.4 K/uL (0.0-0.8); MONO % 3.4 % (0.0-10.0)
[2017-04-06 01:36] LABS: HEMATOCRIT 19.4 % (34.0-47.0); LYMPH # 1.7 K/uL (1.0-4.3); LYMPH % 12.5 % (20.0-40.0); MEAN PLATELET VOLUME 7.9 fL (7.2-11.7); WHITE BLOOD COUNT 13.4 K/uL (4.8-10.8)
--- NOTE | 2017-04-06 03:57 | CP.PCM.CON ---
History of Present Illness - History of Present Illness History of Present Illness: General Surgery consult note for Dr. 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 Patient states she was at home getting a the dressing changed when the breast mass began to bleed profusely. Patient states that her dressing is changed every other day by a home nurse. Patient states that she has received blood transfusions in past for bleeding. In the ED, dressing changed was attempted and the patient began to bleed heavily. Patient became pale and hypotensive. She was put in trendelenburg position and fluids were optimized. Copious amounts of surgicel were applied to try to acheive hemostasis. Also, Several large wilfrid bandages were wrapped around the mass and around her. Patient was eventually stabilized and transferred to ICU. Admits to chest pain, palpitations, SOB, dizziness, vertigo. Denies fever/ chills, abdominal pain, nausea/vomiting, diarrhea. PMH: Rheumatoid arthritis, breast carcinoma with fungating mass, anemia, vertigo Meds: As per EMR Allergy: Ciprofloxacin, ibuprofen, magnesium, PCN, diphenhydramine PSH: core needle biopsy left breast mass Hosp: numerous related to breast CA FH: unknown Social: denies tobacco, EtOH, illicit drug use Review of Systems - Review of Systems All systems: reviewed and no additional remarkable complaints except (chest pain , palpitations, SOB, dizziness, vertigo) Past Patient History - Infectious Disease Hx of Infectious Diseases: None - Past Medical History & Family History Past Medical History?: Yes - Past Social History Smoking Status: Never Smoked Chewing Tobacco Use: No Cigar Use: No Occupation: unemployed.worked in "management" Alcohol: None Drugs: Denies Home Situation {Lives}: With Family - CARDIAC Hx Cardiac Disorders: No - PULMONARY Hx Respiratory Disorders: No - NEUROLOGICAL Hx Neurological Disorder: No - HEENT Hx HEENT Problems: No - RENAL Hx Chronic Kidney Disease: No - ENDOCRINE/METABOLIC Hx Endocrine Disorders: No - HEMATOLOGICAL/ONCOLOGICAL Hx Anemia: Yes Hx Blood Transfusions: Yes - INTEGUMENTARY Hx Dermatological Problems: Yes Other/Comment: left upper chest mass - MUSCULOSKELETAL/RHEUMATOLOGICAL Hx Falls: No - GASTROINTESTINAL Hx Gastrointestinal Disorders: No - GENITOURINARY/GYNECOLOGICAL Other/Comment: menopausal. breast CA - PSYCHIATRIC Hx Anxiety: Yes Hx Substance Use: No - SURGICAL HISTORY Hx Surgeries: Yes Hx Breast Biopsy: Yes Hx Section: Yes (x2) Other/Comment: d&c - ANESTHESIA Hx Anesthesia: Yes Hx Anesthesia Reactions: No Meds Allergies/Adverse Reactions: Allergies Allergy/AdvReac Type Severity Reaction Status Date / Time ciprofloxacin [From Cipro] Allergy SWELLING Verified 04/05/17 17:03 ibuprofen Allergy Verified 04/05/17 17:03 magnesium Allergy CONGESTION Verified 04/05/17 17:03 Penicillins Allergy SWELLING Verified 04/05/17 17:03 diphenhydramine AdvReac numbness Verified 04/05/17 17:03 [From Benadryl] on tongue and throath - Medications Medications: Current Medications Acetaminophen (Tylenol 325mg Tab) 325 mg PO Q4 PRN PRN Reason: pain Ferrous Sulfate (Feosol) 325 mg PO BID [facility] Sodium Chloride (Sodium Chloride 0.9%) 1,000 mls @ 100 mls/hr IV .Q10H ONE Stop: 04/06/17 04:42 Last Admin: 04/05/17 19:32 Dose: 100 mls/hr Potassium Chloride/Dextrose/Sod Cl (Potassium Chl 20 Meq In D5-1/2ns) 1,000 mls @ 75 mls/hr IV .[id number] DANNA Stop: 04/06/17 09:04 Last Admin: 04/05/17 20:19 Dose: 75 mls/hr Ondansetron HCl (Zofran Odt) 8 mg PO Q8H PRN PRN Reason: Nausea/Vomiting Pantoprazole Sodium (Protonix Ec Tab) 40 mg PO DAILY DANNA Saccharomyces Boulardii (Florastor) 250 mg PO DAILY DANNA Physical Exam - Constitutional Appears: Toxic, Cachectic, Chronically Ill - Head Exam Head Exam: ATRAUMATIC, NORMOCEPHALIC - Eye Exam Eye Exam: EOMI Pupil Exam: PERRL - ENT Exam ENT Exam: Mucous Membranes Moist - Respiratory Exam Respiratory Exam: NORMAL BREATHING PATTERN - Cardiovascular Exam Cardiovascular Exam: Tachycardia - GI/Abdominal Exam GI & Abdominal Exam: Soft. absent: Tenderness - Extremities Exam Extremities exam: Negative for: calf tenderness, pedal edema - Back Exam Back exam: absent: CVA tenderness (L), CVA tenderness (R) - Neurological Exam Neurological exam: Alert, Oriented x3 - Psychiatric Exam Psychiatric exam: Flat Affect - Skin Skin Exam: Dry, Warm Additional comments: left lateral breast fungating mass with foul odorous smell with extensive bleeding Results - Vital Signs Recent Vital Signs: Last Vital Signs Temp 97.2 F L 04/06/17 03:21 Pulse 114 H 04/06/17 03:21 Resp 13 04/06/17 03:21 BP 91/52 L 04/06/17 03:21 Pulse Ox 100 04/06/17 03:21 - Labs Result Diagrams: 04/06/17 06:15 04/06/17 06:15 Labs: Laboratory Results - last 24 hr 04/05/17 04/05/17 04/05/17 18:02 18:02 18:07 WBC 17.2 H D RBC 3.51 L Hgb 7.4 L Hct 24.7 L MCV 70.3 L D MCH 21.1 L MCHC 30.0 L RDW 17.5 H Plt Count 492 H D MPV 7.4 Neut % (Auto) 88.3 H Lymph % (Auto) 6.0 L [place] % (Auto) 4.2 Eos % (Auto) 1.0 Baso % (Auto) 0.5 Neut # 15.2 H Lymph # 1.0 [place] # 0.7 Eos # 0.2 Baso # 0.1 Neutrophils % (Manual) 88 H Band Neutrophils % 2 Lymphocytes % (Manual) 4 L Monocytes % (Manual) 6 Platelet Estimate Normal Hypochromasia (manual) Moderate Poikilocytosis (manual Moderate Anisocytosis (manual) Moderate Microcytosis (manual) Slight Macrocytosis (manual) Slight Target Cells Slight Tear Drop Cells Slight Ovalocytes Slight Suad Cells Slight Sodium 131 L Potassium 4.1 Chloride 101 Carbon Dioxide 23 Anion Gap 11 BUN 16 Creatinine 0.5 L Est GFR ( Amer) > 60 Est GFR (Non-Af Amer) > 60 POC Glucose (mg/dL) 245 H Random Glucose 205 H Calcium 7.5 L Total Bilirubin 0.4 AST 25 ALT 26 Alkaline Phosphatase 82 Total Protein 6.1 L Albumin 2.5 L Globulin 3.6 Albumin/Globulin Ratio 0.7 L Blood Type Antibody Screen Antibody Identification Crossmatch Enhanced Crossmatch 04/05/17 04/06/17 04/06/17 20:50 01:00 01:26 WBC 13.4 H RBC 2.28 L Hgb 6.2 L* Hct 19.4 L MCV 85.0 D MCH 27.2 MCHC 32.0 L RDW 16.0 H Plt Count 160 D MPV 7.9 Neut % (Auto) 83.8 H Lymph % (Auto) 12.5 L [place] % (Auto) 3.4 Eos % (Auto) 0.1 Baso % (Auto) 0.2 Neut # 11.2 H Lymph # 1.7 [place] # 0.4 Eos # 0.0 Baso # 0.0 Neutrophils % (Manual) Band Neutrophils % Lymphocytes % (Manual) Monocytes % (Manual) Platelet Estimate Hypochromasia (manual) Poikilocytosis (manual Anisocytosis (manual) Microcytosis (manual) Macrocytosis (manual) Target Cells Tear Drop Cells Ovalocytes Suad Cells Sodium Potassium Chloride Carbon Dioxide Anion Gap BUN Creatinine Est GFR ( Amer) Est GFR (Non-Af Amer) POC Glucose (mg/dL) Random Glucose Calcium Total Bilirubin AST ALT Alkaline Phosphatase Total Protein Albumin Globulin Albumin/Globulin Ratio Blood Type B POSITIVE B POSITIVE Antibody Screen Positive Positive Antibody Identification Anti C Anti C Crossmatch See Detail Enhanced Crossmatch See Detail Assessment & Plan - Assessment and Plan (Free Text) Plan: 51F with large invasive ductal carcinoma mass with chronic skin and soft-tissue breakdown -Monitor H/H, Transfuse PRN -Do NOT remove dressing at this time - Monitor for bleeding -Patient and family refusing any intervention regarding the Breast CA -Management as per ICU -Discussed with Dr. Amos Rico PGY1
[2017-04-06 06:22] LABS: HEMATOCRIT 38.1 % (34.0-47.0); LYMPH # 1.8 K/uL (1.0-4.3); LYMPH % 8.3 % (20.0-40.0); MEAN CELL VOLUME 84.9 fL (81.0-99.0); MEAN CORPUSCULAR HEMOGLOBIN 28.3 pg (27.0-31.0); MEAN CORPUSCULAR HGB CONC 33.3 g/dL (33.0-37.0); MONO # 1.2 K/uL (0.0-0.8); MONO % 5.6 % (0.0-10.0); NRBC % 0.1 % (0.0-2.0); PLATELET COUNT 150 K/uL (130-400); RBC URINE < 1 /hpf (0-3); RED CELL DISTRIBUTION WIDTH 15.4 % (11.5-14.5); URINE BILIRUBIN NEGATIVE (NEGATIVE); URINE BLOOD NEGATIVE (NEGATIVE); URINE COLOR Straw (YELLOW); URINE GLUCOSE (UA) 2+ mg/dL (Normal); URINE KETONE NEGATIVE (NEGATIVE); URINE LEUKOCYTE ESTERASE NEG Leu/uL (Negative); URINE PROTEIN NEGATIVE (NEGATIVE); URINE UROBILINOGEN NORMAL mg/dL (0.2-1.0); WBC URINE < 1 /hpf (0-5); WHITE BLOOD COUNT 21.7 K/uL (4.8-10.8)
[2017-04-06] MEDS: (Novolin R) Insulin Human Regular 100 units/ml vial SC SCH ×4 (06:22→23:41)
[2017-04-06 06:30] LABS: IRON 92 ug/dL (37-170)
[2017-04-06 06:33] LABS: ALB/GLOB RATIO 0.6 (1.0-2.1); CARBON DIOXIDE 15 mmol/L (22-30); CHLORIDE 114 mmol/L (98-107); GFR AFRICAN-AMERICAN > 60; GLUCOSE,RANDOM 172 mg/dL (65-105); INR 1.3; PHOSPHOROUS 4.2 mg/dL (2.5-4.5); POTASSIUM 3.9 mmol/L (3.6-5.2); SODIUM 138 mmol/L (132-148)
[2017-04-06 06:49] LABS: ALKALINE PHOSPHATASE 37 U/L (38-126); ALT/SGPT 31 U/L (9-52); AST/SGOT 25 U/L (14-36); BILIRUBIN,TOTAL 0.9 mg/dL (0.2-1.3); BLOOD UREA NITROGEN 14 mg/dL (7-17); CALCIUM 5.5 mg/dl (8.6-10.4); MAGNESIUM 1.5 mg/dL (1.6-2.3)
[2017-04-06] MEDS ORDERED: Calcium Gluconate 4.65 mEq/10 ml Inj IVP ONE (08:00)
[2017-04-06 08:16] LABS: NEUTROPHIL 90 % (50-75); TOTAL CELLS COUNTED 100
[2017-04-06] MEDS ORDERED: Magnesium Sulfate 1 gm in D5W 1 GM/100 ML BAG IVPB ONE (09:06)
--- NOTE | 2017-04-06 09:07 | CP.PCM.PN ---
Subjective - Date & Time of Evaluation Date of Evaluation: 04/06/17 Time of Evaluation: 11:00 - Subjective Subjective: clinically same Objective - Vital Signs/Intake and Output Vital Signs (last 24 hours): Temp Pulse Resp BP Pulse Ox 98.4 F 119 H 16 96/61 L 90 L 04/06/17 07:04 04/06/17 07:12 04/06/17 07:12 04/06/17 07:12 04/06/17 07:12 Intake and Output: 04/06/17 04/06/17 06:59 18:59 Intake Total 2650 Output Total 200 Balance 2450 - Medications Medications: Current Medications Acetaminophen (Tylenol 325mg Tab) 325 mg PO Q4 PRN PRN Reason: pain Ferrous Sulfate (Feosol) 325 mg PO BID DANNA Piperacillin Sod/Tazobactam Sod (Zosyn 3.375 Gm Iv Premix) 3.375 gm in 50 mls @ 100 mls/hr IVPB Q6H DANNA Vancomycin/Sodium Chloride (Vancomycin 1 Gm/Ns 200 Ml) 1 gm in 200 mls @ 166.7 mls/hr IVPB Q24H DANNA Stop: 04/11/17 10:01 Insulin Human Regular (Novolin R) 0 unit SC Q6 DANNA PRN Reason: Protocol Last Admin: 04/06/17 06:22 Dose: Not Given Ondansetron HCl (Zofran Odt) 8 mg PO Q8H PRN PRN Reason: Nausea/Vomiting Pantoprazole Sodium (Protonix Ec Tab) 40 mg PO DAILY DANNA Saccharomyces Boulardii (Florastor) 250 mg PO DAILY DANNA - Labs Labs: 04/06/17 06:15 04/06/17 06:15 PT 14.4 SECONDS (9.7-12.2) H 04/06/17 06:15 INR 1.3 04/06/17 06:15 APTT 28 SECONDS (21-34) 04/06/17 06:15 - Constitutional Appears: Well - Head Exam Head Exam: ATRAUMATIC, NORMAL INSPECTION, NORMOCEPHALIC - Eye Exam Eye Exam: EOMI, Normal appearance, PERRL Pupil Exam: NORMAL ACCOMODATION, PERRL - ENT Exam ENT Exam: Mucous Membranes Moist, Normal Exam - Neck Exam Neck Exam: Full ROM, Normal Inspection. absent: Lymphadenopathy - Respiratory Exam Respiratory Exam: Decreased Breath Sounds - Cardiovascular Exam Cardiovascular Exam: REGULAR RHYTHM, +S1, +S2 - GI/Abdominal Exam GI & Abdominal Exam: Soft, Diminished Bowel Sounds - Rectal Exam Rectal Exam: Deferred Assessment and Plan (1) Bleeding Status: Acute (2) Bleeding from breast Status: Acute (3) Breast cancer Status: Acute (4) DIC (disseminated intravascular coagulation) Status: Acute (5) Leukocytosis Status: Acute (6) Skin irritation Status: Acute (7) Tachycardia Status: Acute (8) Thrombocytopenia Status: Acute (9) Anemia Status: Acute (10) Anemia Status: Acute (11) Breast cancer Status: Acute (12) Breast mass, left Status: Acute (13) Chest pain Status: Acute (14) Clinical decompensation Status: Acute (15) Constipation Status: Acute (16) Invasive ductal carcinoma of breast, stage 3 Status: Acute (17) Malnutrition Status: Acute (18) 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 - Assessment and Plan (Free Text) Plan: Patient examined. Blood pressure still low, tachycardia still present. Continue piperacillin tazobactam, vancomycin. 2 red cell concentrate were transfused. Continue supportive care.
[2017-04-06] MEDS ORDERED: Piperacill/Tazo 3.375gm in Dex 3.375 GM/50 ML BAG IVPB SCH ×2 (09:15→10:00)
[2017-04-06] MEDS ORDERED: Enoxaparin 40 mg Syringe SC SCH (10:00)
[2017-04-06] MEDS: Vancomycin 1 gm/NS 200 ml 1 GM/200 ML BAG IVPB SCH (10:15)
[2017-04-06] MEDS: Pantoprazole 40 mg EC Tab PO SCH (10:16)
[2017-04-06] MEDS: Saccharomyces Boulardi 250 mg Cap PO SCH (10:16)
[2017-04-06] MEDS ORDERED: Calcium Gluconate 4.65 mEq/10 ml Inj ONE (11:27)
[2017-04-06] MEDS: Cefepime IV 1 gm in Dextrose 1 GM/50 ML BAG IVPB SCH ×2 (12:00→23:16)
--- NOTE | 2017-04-06 12:07 | CP.PCM.CON ---
History of Present Illness - History of Present Illness History of Present Illness: 51 year old female with large left breast invasive ductal carcinoma presented with bleeding mass. Mass friable and started bleeding profusely after dressing change. Patient stabilized and transferred to ICU. Admits to chest pain, palpitations, SOB, dizziness, vertigo. Denies fever/chills, abdominal pain, nausea/vomiting, diarrhea. Mass previously cultured and grew pseudomonas and GPC. IR consulted to evaluate for angiography and possible embolization. PMH: RA, breast carcinoma with fungating mass, anemia, vertigo Meds: Per EMR Allergy: Ciprofloxacin, ibuprofen, magnesium, PCN, diphenhydramine PSH: core needle biopsy left breast mass FH: unknown Social: denies tobacco, EtOH, illicit drug use Past Patient History - Infectious Disease Hx of Infectious Diseases: None - Past Medical History & Family History Past Medical History?: Yes - Past Social History Smoking Status: Never Smoked Chewing Tobacco Use: No Cigar Use: No Occupation: unemployed.worked in "[employer] Alcohol: None Drugs: Denies Home Situation {Lives}: With Family - CARDIAC Hx Cardiac Disorders: No - PULMONARY Hx Respiratory Disorders: No - NEUROLOGICAL Hx Neurological Disorder: No - HEENT Hx HEENT Problems: No - RENAL Hx Chronic Kidney Disease: No - ENDOCRINE/METABOLIC Hx Endocrine Disorders: No - HEMATOLOGICAL/ONCOLOGICAL Hx Anemia: Yes Hx Blood Transfusions: Yes - INTEGUMENTARY Hx Dermatological Problems: Yes Other/Comment: left upper chest mass - MUSCULOSKELETAL/RHEUMATOLOGICAL Hx Falls: No - GASTROINTESTINAL Hx Gastrointestinal Disorders: No - GENITOURINARY/GYNECOLOGICAL Other/Comment: menopausal. breast CA - PSYCHIATRIC Hx Anxiety: Yes Hx Substance Use: No - SURGICAL HISTORY Hx Surgeries: Yes Hx Breast Biopsy: Yes Hx Section: Yes (x2) Other/Comment: d&c - ANESTHESIA Hx Anesthesia: Yes Hx Anesthesia Reactions: No Meds Allergies/Adverse Reactions: Allergies Allergy/AdvReac Type Severity Reaction Status Date / Time ciprofloxacin [From Cipro] Allergy SWELLING Verified 04/05/17 17:03 ibuprofen Allergy Verified 04/05/17 17:03 magnesium Allergy CONGESTION Verified 04/05/17 17:03 Penicillins Allergy SWELLING Verified 04/05/17 17:03 diphenhydramine AdvReac numbness Verified 04/05/17 17:03 [From Benadryl] on tongue and throath - Medications Medications: Current Medications Acetaminophen (Tylenol 325mg Tab) 325 mg PO Q4 PRN PRN Reason: pain Ferrous Sulfate (Feosol) 325 mg PO BID [facility] Last Admin: 04/06/17 10:21 Dose: 325 mg Vancomycin/Sodium Chloride (Vancomycin 1 Gm/Ns 200 Ml) 1 gm in 200 mls @ 166.7 mls/hr IVPB Q24H DANNA Stop: 04/11/17 10:01 Last Admin: 04/06/17 10:15 Dose: 166.7 mls/hr Magnesium Sulfate/Dextrose (Magnesium Sulfate 1 Gm/100 Ml D5w) 1 gm in 100 mls @ 25 mls/hr IVPB ONCE ONE Stop: 04/06/17 13:05 Last Admin: 04/06/17 10:14 Dose: 25 mls/hr Calcium Gluconate 4.65 meq/ (Sodium Chloride) 110 mls @ 100 mls/hr IV ONCE ONE Stop: 04/06/17 12:05 Cefepime HCl (Maxipime Iv 1 Gm Premix) 1 gm in 50 mls @ 100 mls/hr IVPB Q12H [facility] Insulin Human Regular (Novolin R) 0 unit SC Q6 DANNA PRN Reason: Protocol Last Admin: 04/06/17 06:22 Dose: Not Given Ondansetron HCl (Zofran Odt) 8 mg PO Q8H PRN PRN Reason: Nausea/Vomiting Pantoprazole Sodium (Protonix Ec Tab) 40 mg PO DAILY [facility] Last Admin: 04/06/17 10:16 Dose: 40 mg Saccharomyces Boulardii (Florastor) 250 mg PO DAILY [facility] Last Admin: 04/06/17 10:16 Dose: 250 mg Physical Exam - Constitutional Appears: Chronically Ill - Respiratory Exam Respiratory Exam: Clear to Auscultation Bilateral - Cardiovascular Exam Cardiovascular Exam: REGULAR RHYTHM - GI/Abdominal Exam GI & Abdominal Exam: Normal Bowel Sounds, Soft. absent: Tenderness - Skin Additional comments: large left breast/axillary region mass Results - Vital Signs Recent Vital Signs: Last Vital Signs Temp 98.4 F 04/06/17 07:04 Pulse 119 H 04/06/17 07:12 Resp 16 04/06/17 07:12 BP 96/61 L 04/06/17 07:12 Pulse Ox 90 L 04/06/17 07:12 - Labs Result Diagrams: 04/06/17 06:15 04/06/17 06:15 Labs: Laboratory Results - last 24 hr 04/05/17 04/05/17 04/05/17 18:02 18:02 18:07 WBC 17.2 H D RBC 3.51 L Hgb 7.4 L Hct 24.7 L MCV 70.3 L D MCH 21.1 L MCHC 30.0 L RDW 17.5 H Plt Count 492 H D MPV 7.4 Neut % (Auto) 88.3 H Lymph % (Auto) 6.0 L [place] % (Auto) 4.2 Eos % (Auto) 1.0 Baso % (Auto) 0.5 Neut # 15.2 H Lymph # 1.0 [place] # 0.7 Eos # 0.2 Baso # 0.1 Neutrophils % (Manual) 88 H Band Neutrophils % 2 Lymphocytes % (Manual) 4 L Monocytes % (Manual) 6 Platelet Estimate Normal Polychromasia Hypochromasia (manual) Moderate Poikilocytosis (manual Moderate Anisocytosis (manual) Moderate Microcytosis (manual) Slight Macrocytosis (manual) Slight Target Cells Slight Tear Drop Cells Slight Ovalocytes Slight Suad Cells Slight PT INR APTT Sodium 131 L Potassium 4.1 Chloride 101 Carbon Dioxide 23 Anion Gap 11 BUN 16 Creatinine 0.5 L Est GFR ( Amer) > 60 Est GFR (Non-Af Amer) > 60 POC Glucose (mg/dL) 245 H Random Glucose 205 H Hemoglobin A1c Calcium 7.5 L Phosphorus Magnesium Iron TIBC % Saturation Total Bilirubin 0.4 AST 25 ALT 26 Alkaline Phosphatase 82 Total Protein 6.1 L Albumin 2.5 L Globulin 3.6 Albumin/Globulin Ratio 0.7 L Urine Color Urine Clarity Urine pH Ur Specific [place] Urine Protein Urine Glucose (UA) Urine Ketones Urine Blood Urine Nitrate Urine Bilirubin Urine Urobilinogen Ur Leukocyte Esterase Urine WBC (Auto) Urine RBC (Auto) Ur Squamous Epith Cells Blood Type Antibody Screen Antibody Identification Crossmatch Enhanced Crossmatch 04/05/17 04/06/17 04/06/17 20:50 01:00 01:26 WBC 13.4 H RBC 2.28 L Hgb 6.2 L* Hct 19.4 L MCV 85.0 D MCH 27.2 MCHC 32.0 L RDW 16.0 H Plt Count 160 D MPV 7.9 Neut % (Auto) 83.8 H Lymph % (Auto) 12.5 L [place] % (Auto) 3.4 Eos % (Auto) 0.1 Baso % (Auto) 0.2 Neut # 11.2 H Lymph # 1.7 [place] # 0.4 Eos # 0.0 Baso # 0.0 Neutrophils % (Manual) Band Neutrophils % Lymphocytes % (Manual) Monocytes % (Manual) Platelet Estimate Polychromasia Hypochromasia (manual) Poikilocytosis (manual Anisocytosis (manual) Microcytosis (manual) Macrocytosis (manual) Target Cells Tear Drop Cells Ovalocytes Suad Cells PT INR APTT Sodium Potassium Chloride Carbon Dioxide Anion Gap BUN Creatinine Est GFR ( Amer) Est GFR (Non-Af Amer) POC Glucose (mg/dL) Random Glucose Hemoglobin A1c Calcium Phosphorus Magnesium Iron TIBC % Saturation Total Bilirubin AST ALT Alkaline Phosphatase Total Protein Albumin Globulin Albumin/Globulin Ratio Urine Color Urine Clarity Urine pH Ur Specific [place] Urine Protein Urine Glucose (UA) Urine Ketones Urine Blood Urine Nitrate Urine Bilirubin Urine Urobilinogen Ur Leukocyte Esterase Urine WBC (Auto) Urine RBC (Auto) Ur Squamous Epith Cells Blood Type B POSITIVE B POSITIVE Antibody Screen Positive Positive Antibody Identification Anti C Anti C Crossmatch See Detail Enhanced Crossmatch See Detail 04/06/17 04/06/17 04/06/17 05:55 06:15 06:15 WBC RBC Hgb Hct MCV MCH MCHC RDW Plt Count MPV Neut % (Auto) Lymph % (Auto) [place] % (Auto) Eos % (Auto) Baso % (Auto) Neut # Lymph # [place] # Eos # Baso # Neutrophils % (Manual) Band Neutrophils % Lymphocytes % (Manual) Monocytes % (Manual) Platelet Estimate Polychromasia Hypochromasia (manual) Poikilocytosis (manual Anisocytosis (manual) Microcytosis (manual) Macrocytosis (manual) Target Cells Tear Drop Cells Ovalocytes Suad Cells PT INR APTT Sodium Potassium Chloride Carbon Dioxide Anion Gap BUN Creatinine Est GFR ( Amer) Est GFR (Non-Af Amer) POC Glucose (mg/dL) 180 H Random Glucose Hemoglobin A1c Calcium Phosphorus Magnesium Iron 92 TIBC 168 L % Saturation 55 Total Bilirubin AST ALT Alkaline Phosphatase Total Protein Albumin Globulin Albumin/Globulin Ratio Urine Color Straw Urine Clarity Clear Urine pH 6.0 Ur Specific [place] 1.009 Urine Protein Negative Urine Glucose (UA) 2+ H Urine Ketones Negative Urine Blood Negative Urine Nitrate Negative Urine Bilirubin Negative Urine Urobilinogen Normal Ur Leukocyte Esterase Neg Urine WBC (Auto) < 1 Urine RBC (Auto) < 1 Ur Squamous Epith Cells < 1 Blood Type Antibody Screen Antibody Identification Crossmatch Enhanced Crossmatch 04/06/17 04/06/17 04/06/17 06:15 06:15 06:15 WBC 21.7 H D RBC 4.49 Hgb 12.7 D Hct 38.1 MCV 84.9 MCH 28.3 MCHC 33.3 RDW 15.4 H Plt Count 150 MPV 8.0 Neut % (Auto) 86.1 H Lymph % (Auto) 8.3 L [place] % (Auto) 5.6 Eos % (Auto) 0.0 Baso % (Auto) 0.0 Neut # 18.7 H Lymph # 1.8 [place] # 1.2 H Eos # 0.0 Baso # 0.0 Neutrophils % (Manual) 90 H Band Neutrophils % 7 H Lymphocytes % (Manual) 1 L Monocytes % (Manual) 2 Platelet Estimate Normal Polychromasia Slight Hypochromasia (manual) Poikilocytosis (manual Anisocytosis (manual) Slight Microcytosis (manual) Macrocytosis (manual) Target Cells Tear Drop Cells Ovalocytes Slight [place] Cells Slight PT INR APTT Sodium 138 Potassium 3.9 Chloride 114 H Carbon Dioxide 15 L Anion Gap 12 BUN 14 Creatinine 0.4 L Est GFR ( Amer) > 60 Est GFR (Non-Af Amer) > 60 POC Glucose (mg/dL) Random Glucose 172 H Hemoglobin A1c 5.8 Calcium 5.5 L* D Phosphorus 4.2 Magnesium 1.5 L Iron TIBC % Saturation Total Bilirubin 0.9 AST 25 ALT 31 Alkaline Phosphatase 37 L D Total Protein 4.0 L Albumin 1.4 L D Globulin 2.6 Albumin/Globulin Ratio 0.6 L Urine Color Urine Clarity Urine pH Ur Specific [place] Urine Protein Urine Glucose (UA) Urine Ketones Urine Blood Urine Nitrate Urine Bilirubin Urine Urobilinogen Ur Leukocyte Esterase Urine WBC (Auto) Urine RBC (Auto) Ur Squamous Epith Cells Blood Type Antibody Screen Antibody Identification Crossmatch Enhanced Crossmatch 04/06/17 04/06/17 06:15 11:53 WBC RBC Hgb Hct MCV MCH MCHC RDW Plt Count MPV Neut % (Auto) Lymph % (Auto) [place] % (Auto) Eos % (Auto) Baso % (Auto) Neut # Lymph # [place] # Eos # Baso # Neutrophils % (Manual) Band Neutrophils % Lymphocytes % (Manual) Monocytes % (Manual) Platelet Estimate Polychromasia Hypochromasia (manual) Poikilocytosis (manual Anisocytosis (manual) Microcytosis (manual) Macrocytosis (manual) Target Cells Tear Drop Cells Ovalocytes Suad Cells PT 14.4 H INR 1.3 APTT 28 Sodium Potassium Chloride Carbon Dioxide Anion Gap BUN Creatinine Est GFR ( Amer) Est GFR (Non-Af Amer) POC Glucose (mg/dL) 111 H Random Glucose Hemoglobin A1c Calcium Phosphorus Magnesium Iron TIBC % Saturation Total Bilirubin AST ALT Alkaline Phosphatase Total Protein Albumin Globulin Albumin/Globulin Ratio Urine Color Urine Clarity Urine pH Ur Specific [place] Urine Protein Urine Glucose (UA) Urine Ketones Urine Blood Urine Nitrate Urine Bilirubin Urine Urobilinogen Ur Leukocyte Esterase Urine WBC (Auto) Urine RBC (Auto) Ur Squamous Epith Cells Blood Type Antibody Screen Antibody Identification Crossmatch Enhanced Crossmatch Assessment & Plan - Assessment and Plan (Free Text) Assessment: 51 yo female w/ bleeding fungating LEFT LABC Plan: --chart reviewed --obtain CTA chest today to assess mass and vascular supply --will schedule for IR angiography and possible embolization tomorrow AM (04/07) --keep NPO after midnight --if embolized, risk of partial tumor necrosis which may become superinfected given hx of prior mass infection. if this happens will likely need surgical i&d/ debridement. --above discussed with Dr. Trinidad --please call IR with any questions
--- NOTE | 2017-04-06 12:53 | CP.CCUPN ---
CCU Subjective - Physician Review Events Since Last Encounter (Free Text): Dressing continues to soak with blood 04/06/17 12:51 Subjective (Free Text): Patient seen and examined at bedside. Patient refused examination of left breast mass. Patient denies any pain. denies any dizziness. denies any chest pain. 04/06/17 12:50 CCU Objective - Vital Signs / Intake & Output Vital Signs (Last 4 hours): Vital Signs Temp Pulse Resp BP Pulse Ox 04/06/17 12:00 98.3 F 101 H 18 107/54 L 100 04/06/17 11:00 98.2 F 102 H 18 93/51 L 100 04/06/17 10:00 98.2 F 100 H 18 99/51 L 100 04/06/17 09:00 98.2 F 101 H 18 109/63 100 Intake and Output (Last 8hrs): Intake & Output 04/05/17 04/06/17 04/06/17 22:59 06:59 14:59 Intake Total 2650 750 Output Total 200 Balance 2450 750 Weight 119 lb 0.794 oz 93 lb 14.4 oz Intake: Intake, IV Amount 2000 650 Left Femoral 2000 650 Oral 0 100 Blood Product 650 Red Blood Cells Cpd As1 0 Lr Unit [id number] Output: Urine 200 Urine, Voided 200 - Physical Exam Physical Exam Limitations: Negative for: Altered Mental Status Head: Positive for: Atraumatic, Normocephalic Respiratory/Chest: Positive for: Clear to Auscultation, Good Air Exchange Cardiovascular: Positive for: Regular Rate and Rhythm Abdomen: Positive for: Normal Bowel Sounds. Negative for: Tenderness, Distention Upper Extremity: Positive for: Other (atrophy, poor pulses b/l radail and DP/PT) Skin: Positive for: Warm - Medications Active Medications: Active Medications Generic Name Dose Route Start Last Admin Trade Name Freq PRN Reason Stop Dose Admin Acetaminophen 325 mg 04/05/17 19:34 Tylenol 325mg Tab PO Q4 PRN pain Ferrous Sulfate 325 mg 04/06/17 10:00 04/06/17 10:21 Feosol PO 325 mg BID DANNA Administration Vancomycin/Sodium Chloride 1 gm in 200 mls @ 166.7 mls/hr 04/06/17 10:00 10:15 Vancomycin 1 Gm/Ns 200 Ml IVPB 04/11/17 10:01 166.7 mls/hr Q24H DANNA Administration Magnesium Sulfate/Dextrose 1 gm in 100 mls @ 25 mls/hr 04/06/17 09:06 10:14 Magnesium Sulfate 1 Gm/100 Ml D5w IVPB 04/06/17 13:05 25 mls/hr ONCE ONE Administration Cefepime HCl 1 gm in 50 mls @ 100 mls/hr 04/06/17 12:00 Maxipime Iv 1 Gm Premix IVPB Q12H DANNA Insulin Human Regular 0 unit 04/06/17 06:00 04/06/17 06:22 Novolin R SC Not Given Q6 [facility] Protocol Ondansetron HCl 8 mg 04/05/17 19:34 Zofran Odt PO Q8H PRN Nausea/Vomiting Pantoprazole Sodium 40 mg 04/06/17 10:00 04/06/17 10:16 Protonix Ec Tab PO 40 mg DAILY DANNA Administration Saccharomyces Boulardii 250 mg 04/06/17 10:00 04/06/17 10:16 Florastor PO 250 mg DAILY DANNA Administration - Patient Studies Lab Studies: Lab Studies 04/06/17 04/06/17 04/06/17 Range/Units 11:53 06:15 06:15 WBC (4.8-10.8) K/uL RBC (3.80-5.20) Mil/uL Hgb (11.0-16.0) g/dL Hct (34.0-47.0) % MCV (81.0-99.0) fL MCH (27.0-31.0) pg MCHC (33.0-37.0) g/dL RDW (11.5-14.5) % Plt Count (130-400) K/uL MPV (7.2-11.7) fL Neut % (Auto) (50.0-75.0) % Lymph % (Auto) (20.0-40.0) % [place] % (Auto) (0.0-10.0) % Eos % (Auto) (0.0-4.0) % Baso % (Auto) (0.0-2.0) % Neut # (1.8-7.0) K/uL Lymph # (1.0-4.3) K/uL [place] # (0.0-0.8) K/uL Eos # (0.0-0.7) K/uL Baso # (0.0-0.2) K/uL Neutrophils % (Manual) (50-75) % Band Neutrophils % (0-2) % Lymphocytes % (Manual) (20-40) % Monocytes % (Manual) (0-10) % Platelet Estimate (NORMAL) Polychromasia Hypochromasia (manual) Poikilocytosis (manual Anisocytosis (manual) Microcytosis (manual) Macrocytosis (manual) Target Cells Tear Drop Cells Ovalocytes [place] Cells PT 14.4 H (9.7-12.2) SECONDS INR 1.3 APTT 28 (21-34) SECONDS Sodium (132-148) mmol/L Potassium (3.6-5.2) mmol/L Chloride (98-107) mmol/L Carbon Dioxide (22-30) mmol/L Anion Gap (10-20) BUN (7-17) mg/dL Creatinine (0.7-1.2) mg/dL Est GFR ( Amer) Est GFR (Non-Af Amer) POC Glucose (mg/dL) 111 H (65-110) mg/dL Random Glucose (65-105) mg/dL Hemoglobin A1c 5.8 (4.2-6.5) % Calcium (8.6-10.4) mg/dl Phosphorus (2.5-4.5) mg/dL Magnesium (1.6-2.3) mg/dL Iron (37-170) ug/dL TIBC (250-450) ug/dL % Saturation (20-55) Total Bilirubin (0.2-1.3) mg/dL AST (14-36) U/L ALT (9-52) U/L Alkaline Phosphatase (38-126) U/L Total Protein (6.3-8.3) g/dL Albumin (3.5-5.0) g/dL Globulin (2.2-3.9) gm/dL Albumin/Globulin Ratio (1.0-2.1) Urine Color (YELLOW) Urine Clarity (Clear) Urine pH (5.0-8.0) Ur Specific [place] (1.003-1.030) Urine Protein (NEGATIVE) mg/dL Urine Glucose (UA) (Normal) mg/dL Urine Ketones (NEGATIVE) mg/dL Urine Blood (NEGATIVE) Urine Nitrate (NEGATIVE) Urine Bilirubin (NEGATIVE) Urine Urobilinogen (0.2-1.0) mg/dL Ur Leukocyte Esterase (Negative) Cesar/uL Urine WBC (Auto) (0-5) /hpf Urine RBC (Auto) (0-3) /hpf Ur Squamous Epith Cells (0-5) /hpf Blood Type Antibody Screen Antibody Identification Crossmatch Enhanced Crossmatch 04/06/17 04/06/17 04/06/17 Range/Units 06:15 06:15 06:15 WBC 21.7 H D (4.8-10.8) K/uL RBC 4.49 (3.80-5.20) Mil/uL Hgb 12.7 D (11.0-16.0) g/dL Hct 38.1 (34.0-47.0) % MCV 84.9 (81.0-99.0) fL MCH 28.3 (27.0-31.0) pg MCHC 33.3 (33.0-37.0) g/dL RDW 15.4 H (11.5-14.5) % Plt Count 150 (130-400) K/uL MPV 8.0 (7.2-11.7) fL Neut % (Auto) 86.1 H (50.0-75.0) % Lymph % (Auto) 8.3 L (20.0-40.0) % [place] % (Auto) 5.6 (0.0-10.0) % Eos % (Auto) 0.0 (0.0-4.0) % Baso % (Auto) 0.0 (0.0-2.0) % Neut # 18.7 H (1.8-7.0) K/uL Lymph # 1.8 (1.0-4.3) K/uL [place] # 1.2 H (0.0-0.8) K/uL Eos # 0.0 (0.0-0.7) K/uL Baso # 0.0 (0.0-0.2) K/uL Neutrophils % (Manual) 90 H (50-75) % Band Neutrophils % 7 H (0-2) % Lymphocytes % (Manual) 1 L (20-40) % Monocytes % (Manual) 2 (0-10) % Platelet Estimate Normal (NORMAL) Polychromasia Slight Hypochromasia (manual) Poikilocytosis (manual Anisocytosis (manual) Slight Microcytosis (manual) Macrocytosis (manual) Target Cells Tear Drop Cells Ovalocytes Slight [place] Cells Slight PT (9.7-12.2) SECONDS INR APTT (21-34) SECONDS Sodium 138 (132-148) mmol/L Potassium 3.9 (3.6-5.2) mmol/L Chloride 114 H (98-107) mmol/L Carbon Dioxide 15 L (22-30) mmol/L Anion Gap 12 (10-20) BUN 14 (7-17) mg/dL Creatinine 0.4 L (0.7-1.2) mg/dL Est GFR ( Amer) > 60 Est GFR (Non-Af Amer) > 60 POC Glucose (mg/dL) (65-110) mg/dL Random Glucose 172 H (65-105) mg/dL Hemoglobin A1c (4.2-6.5) % Calcium 5.5 L* D (8.6-10.4) mg/dl Phosphorus 4.2 (2.5-4.5) mg/dL Magnesium 1.5 L (1.6-2.3) mg/dL Iron 92 (37-170) ug/dL TIBC 168 L (250-450) ug/dL % Saturation 55 (20-55) Total Bilirubin 0.9 (0.2-1.3) mg/dL AST 25 (14-36) U/L ALT 31 (9-52) U/L Alkaline Phosphatase 37 L D (38-126) U/L Total Protein 4.0 L (6.3-8.3) g/dL Albumin 1.4 L D (3.5-5.0) g/dL Globulin 2.6 (2.2-3.9) gm/dL Albumin/Globulin Ratio 0.6 L (1.0-2.1) Urine Color (YELLOW) Urine Clarity (Clear) Urine pH (5.0-8.0) Ur Specific [place] (1.003-1.030) Urine Protein (NEGATIVE) mg/dL Urine Glucose (UA) (Normal) mg/dL Urine Ketones (NEGATIVE) mg/dL Urine Blood (NEGATIVE) Urine Nitrate (NEGATIVE) Urine Bilirubin (NEGATIVE) Urine Urobilinogen (0.2-1.0) mg/dL Ur Leukocyte Esterase (Negative) Cesar/uL Urine WBC (Auto) (0-5) /hpf Urine RBC (Auto) (0-3) /hpf Ur Squamous Epith Cells (0-5) /hpf Blood Type Antibody Screen Antibody Identification Crossmatch Enhanced Crossmatch 04/06/17 04/06/17 04/06/17 Range/Units 06:15 05:55 01:26 WBC 13.4 H (4.8-10.8) K/uL RBC 2.28 L (3.80-5.20) Mil/uL Hgb 6.2 L* (11.0-16.0) g/dL Hct 19.4 L (34.0-47.0) % MCV 85.0 D (81.0-99.0) fL MCH 27.2 (27.0-31.0) pg MCHC 32.0 L (33.0-37.0) g/dL RDW 16.0 H (11.5-14.5) % Plt Count 160 D (130-400) K/uL MPV 7.9 (7.2-11.7) fL Neut % (Auto) 83.8 H (50.0-75.0) % Lymph % (Auto) 12.5 L (20.0-40.0) % [place] % (Auto) 3.4 (0.0-10.0) % Eos % (Auto) 0.1 (0.0-4.0) % Baso % (Auto) 0.2 (0.0-2.0) % Neut # 11.2 H (1.8-7.0) K/uL Lymph # 1.7 (1.0-4.3) K/uL [place] # 0.4 (0.0-0.8) K/uL Eos # 0.0 (0.0-0.7) K/uL Baso # 0.0 (0.0-0.2) K/uL Neutrophils % (Manual) (50-75) % Band Neutrophils % (0-2) % Lymphocytes % (Manual) (20-40) % Monocytes % (Manual) (0-10) % Platelet Estimate (NORMAL) Polychromasia Hypochromasia (manual) Poikilocytosis (manual Anisocytosis (manual) Microcytosis (manual) Macrocytosis (manual) Target Cells Tear Drop Cells Ovalocytes [place] Cells PT (9.7-12.2) SECONDS INR APTT (21-34) SECONDS Sodium (132-148) mmol/L Potassium (3.6-5.2) mmol/L Chloride (98-107) mmol/L Carbon Dioxide (22-30) mmol/L Anion Gap (10-20) BUN (7-17) mg/dL Creatinine (0.7-1.2) mg/dL Est GFR ( Amer) Est GFR (Non-Af Amer) POC Glucose (mg/dL) 180 H (65-110) mg/dL Random Glucose (65-105) mg/dL Hemoglobin A1c (4.2-6.5) % Calcium (8.6-10.4) mg/dl Phosphorus (2.5-4.5) mg/dL Magnesium (1.6-2.3) mg/dL Iron (37-170) ug/dL TIBC (250-450) ug/dL % Saturation (20-55) Total Bilirubin (0.2-1.3) mg/dL AST (14-36) U/L ALT (9-52) U/L Alkaline Phosphatase (38-126) U/L Total Protein (6.3-8.3) g/dL Albumin (3.5-5.0) g/dL Globulin (2.2-3.9) gm/dL Albumin/Globulin Ratio (1.0-2.1) Urine Color Straw (YELLOW) Urine Clarity Clear (Clear) Urine pH 6.0 (5.0-8.0) Ur Specific [place] 1.009 (1.003-1.030) Urine Protein Negative (NEGATIVE) mg/dL Urine Glucose (UA) 2+ H (Normal) mg/dL Urine Ketones Negative (NEGATIVE) mg/dL Urine Blood Negative (NEGATIVE) Urine Nitrate Negative (NEGATIVE) Urine Bilirubin Negative (NEGATIVE) Urine Urobilinogen Normal (0.2-1.0) mg/dL Ur Leukocyte Esterase Neg (Negative) Cesar/uL Urine WBC (Auto) < 1 (0-5) /hpf Urine RBC (Auto) < 1 (0-3) /hpf Ur Squamous Epith Cells < 1 (0-5) /hpf Blood Type Antibody Screen Antibody Identification Crossmatch Enhanced Crossmatch 04/06/17 04/05/17 04/05/17 Range/Units 01:00 20:50 18:07 WBC (4.8-10.8) K/uL RBC (3.80-5.20) Mil/uL Hgb (11.0-16.0) g/dL Hct (34.0-47.0) % MCV (81.0-99.0) fL MCH (27.0-31.0) pg MCHC (33.0-37.0) g/dL RDW (11.5-14.5) % Plt Count (130-400) K/uL MPV (7.2-11.7) fL Neut % (Auto) (50.0-75.0) % Lymph % (Auto) (20.0-40.0) % [place] % (Auto) (0.0-10.0) % Eos % (Auto) (0.0-4.0) % Baso % (Auto) (0.0-2.0) % Neut # (1.8-7.0) K/uL Lymph # (1.0-4.3) K/uL [place] # (0.0-0.8) K/uL Eos # (0.0-0.7) K/uL Baso # (0.0-0.2) K/uL Neutrophils % (Manual) (50-75) % Band Neutrophils % (0-2) % Lymphocytes % (Manual) (20-40) % Monocytes % (Manual) (0-10) % Platelet Estimate (NORMAL) Polychromasia Hypochromasia (manual) Poikilocytosis (manual Anisocytosis (manual) Microcytosis (manual) Macrocytosis (manual) Target Cells Tear Drop Cells Ovalocytes [place] Cells PT (9.7-12.2) SECONDS INR APTT (21-34) SECONDS Sodium (132-148) mmol/L Potassium (3.6-5.2) mmol/L Chloride (98-107) mmol/L Carbon Dioxide (22-30) mmol/L Anion Gap (10-20) BUN (7-17) mg/dL Creatinine (0.7-1.2) mg/dL Est GFR ( Amer) Est GFR (Non-Af Amer) POC Glucose (mg/dL) 245 H (65-110) mg/dL Random Glucose (65-105) mg/dL Hemoglobin A1c (4.2-6.5) % Calcium (8.6-10.4) mg/dl Phosphorus (2.5-4.5) mg/dL Magnesium (1.6-2.3) mg/dL Iron (37-170) ug/dL TIBC (250-450) ug/dL % Saturation (20-55) Total Bilirubin (0.2-1.3) mg/dL AST (14-36) U/L ALT (9-52) U/L Alkaline Phosphatase (38-126) U/L Total Protein (6.3-8.3) g/dL Albumin (3.5-5.0) g/dL Globulin (2.2-3.9) gm/dL Albumin/Globulin Ratio (1.0-2.1) Urine Color (YELLOW) Urine Clarity (Clear) Urine pH (5.0-8.0) Ur Specific [place] (1.003-1.030) Urine Protein (NEGATIVE) mg/dL Urine Glucose (UA) (Normal) mg/dL Urine Ketones (NEGATIVE) mg/dL Urine Blood (NEGATIVE) Urine Nitrate (NEGATIVE) Urine Bilirubin (NEGATIVE) Urine Urobilinogen (0.2-1.0) mg/dL Ur Leukocyte Esterase (Negative) Cesar/uL Urine WBC (Auto) (0-5) /hpf Urine RBC (Auto) (0-3) /hpf Ur Squamous Epith Cells (0-5) /hpf Blood Type B POSITIVE B POSITIVE Antibody Screen Positive Positive Antibody Identification Anti C Anti C Crossmatch See Detail Enhanced Crossmatch See Detail 04/05/17 04/05/17 Range/Units 18:02 18:02 WBC 17.2 H D (4.8-10.8) K/uL RBC 3.51 L (3.80-5.20) Mil/uL Hgb 7.4 L (11.0-16.0) g/dL Hct 24.7 L (34.0-47.0) % MCV 70.3 L D (81.0-99.0) fL MCH 21.1 L (27.0-31.0) pg MCHC 30.0 L (33.0-37.0) g/dL RDW 17.5 H (11.5-14.5) % Plt Count 492 H D (130-400) K/uL MPV 7.4 (7.2-11.7) fL Neut % (Auto) 88.3 H (50.0-75.0) % Lymph % (Auto) 6.0 L (20.0-40.0) % [place] % (Auto) 4.2 (0.0-10.0) % Eos % (Auto) 1.0 (0.0-4.0) % Baso % (Auto) 0.5 (0.0-2.0) % Neut # 15.2 H (1.8-7.0) K/uL Lymph # 1.0 (1.0-4.3) K/uL [place] # 0.7 (0.0-0.8) K/uL Eos # 0.2 (0.0-0.7) K/uL Baso # 0.1 (0.0-0.2) K/uL Neutrophils % (Manual) 88 H (50-75) % Band Neutrophils % 2 (0-2) % Lymphocytes % (Manual) 4 L (20-40) % Monocytes % (Manual) 6 (0-10) % Platelet Estimate Normal (NORMAL) Polychromasia Hypochromasia (manual) Moderate Poikilocytosis (manual Moderate Anisocytosis (manual) Moderate Microcytosis (manual) Slight Macrocytosis (manual) Slight Target Cells Slight Tear Drop Cells Slight Ovalocytes Slight [place] Cells Slight PT (9.7-12.2) SECONDS INR APTT (21-34) SECONDS Sodium 131 L (132-148) mmol/L Potassium 4.1 (3.6-5.2) mmol/L Chloride 101 (98-107) mmol/L Carbon Dioxide 23 (22-30) mmol/L Anion Gap 11 (10-20) BUN 16 (7-17) mg/dL Creatinine 0.5 L (0.7-1.2) mg/dL Est GFR ( Amer) > 60 Est GFR (Non-Af Amer) > 60 POC Glucose (mg/dL) (65-110) mg/dL Random Glucose 205 H (65-105) mg/dL Hemoglobin A1c (4.2-6.5) % Calcium 7.5 L (8.6-10.4) mg/dl Phosphorus (2.5-4.5) mg/dL Magnesium (1.6-2.3) mg/dL Iron (37-170) ug/dL TIBC (250-450) ug/dL % Saturation (20-55) Total Bilirubin 0.4 (0.2-1.3) mg/dL AST 25 (14-36) U/L ALT 26 (9-52) U/L Alkaline Phosphatase 82 (38-126) U/L Total Protein 6.1 L (6.3-8.3) g/dL Albumin 2.5 L (3.5-5.0) g/dL Globulin 3.6 (2.2-3.9) gm/dL Albumin/Globulin Ratio 0.7 L (1.0-2.1) Urine Color (YELLOW) Urine Clarity (Clear) Urine pH (5.0-8.0) Ur Specific [place] (1.003-1.030) Urine Protein (NEGATIVE) mg/dL Urine Glucose (UA) (Normal) mg/dL Urine Ketones (NEGATIVE) mg/dL Urine Blood (NEGATIVE) Urine Nitrate (NEGATIVE) Urine Bilirubin (NEGATIVE) Urine Urobilinogen (0.2-1.0) mg/dL Ur Leukocyte Esterase (Negative) Cesar/uL Urine WBC (Auto) (0-5) /hpf Urine RBC (Auto) (0-3) /hpf Ur Squamous Epith Cells (0-5) /hpf Blood Type Antibody Screen Antibody Identification Crossmatch Enhanced Crossmatch Laboratory Results - last 24 hr 04/05/17 04/05/17 04/05/17 18:02 18:02 18:07 WBC 17.2 H D RBC 3.51 L Hgb 7.4 L Hct 24.7 L MCV 70.3 L D MCH 21.1 L MCHC 30.0 L RDW 17.5 H Plt Count 492 H D MPV 7.4 Neut % (Auto) 88.3 H Lymph % (Auto) 6.0 L [place] % (Auto) 4.2 Eos % (Auto) 1.0 Baso % (Auto) 0.5 Neut # 15.2 H Lymph # 1.0 [place] # 0.7 Eos # 0.2 Baso # 0.1 Neutrophils % (Manual) 88 H Band Neutrophils % 2 Lymphocytes % (Manual) 4 L Monocytes % (Manual) 6 Platelet Estimate Normal Polychromasia Hypochromasia (manual) Moderate Poikilocytosis (manual Moderate Anisocytosis (manual) Moderate Microcytosis (manual) Slight Macrocytosis (manual) Slight Target Cells Slight Tear Drop Cells Slight Ovalocytes Slight [place] Cells Slight PT INR APTT Sodium 131 L Potassium 4.1 Chloride 101 Carbon Dioxide 23 Anion Gap 11 BUN 16 Creatinine 0.5 L Est GFR ( Amer) > 60 Est GFR (Non-Af Amer) > 60 POC Glucose (mg/dL) 245 H Random Glucose 205 H Hemoglobin A1c Calcium 7.5 L Phosphorus Magnesium Iron TIBC % Saturation Total Bilirubin 0.4 AST 25 ALT 26 Alkaline Phosphatase 82 Total Protein 6.1 L Albumin 2.5 L Globulin 3.6 Albumin/Globulin Ratio 0.7 L Urine Color Urine Clarity Urine pH Ur Specific [place] Urine Protein Urine Glucose (UA) Urine Ketones Urine Blood Urine Nitrate Urine Bilirubin Urine Urobilinogen Ur Leukocyte Esterase Urine WBC (Auto) Urine RBC (Auto) Ur Squamous Epith Cells Blood Type Antibody Screen Antibody Identification Crossmatch Enhanced Crossmatch 04/05/17 04/06/17 04/06/17 20:50 01:00 01:26 WBC 13.4 H RBC 2.28 L Hgb 6.2 L* Hct 19.4 L MCV 85.0 D MCH 27.2 MCHC 32.0 L RDW 16.0 H Plt Count 160 D MPV 7.9 Neut % (Auto) 83.8 H Lymph % (Auto) 12.5 L [place] % (Auto) 3.4 Eos % (Auto) 0.1 Baso % (Auto) 0.2 Neut # 11.2 H Lymph # 1.7 [place] # 0.4 Eos # 0.0 Baso # 0.0 Neutrophils % (Manual) Band Neutrophils % Lymphocytes % (Manual) Monocytes % (Manual) Platelet Estimate Polychromasia Hypochromasia (manual) Poikilocytosis (manual Anisocytosis (manual) Microcytosis (manual) Macrocytosis (manual) Target Cells Tear Drop Cells Ovalocytes [place] Cells PT INR APTT Sodium Potassium Chloride Carbon Dioxide Anion Gap BUN Creatinine Est GFR ( Amer) Est GFR (Non-Af Amer) POC Glucose (mg/dL) Random Glucose Hemoglobin A1c Calcium Phosphorus Magnesium Iron TIBC % Saturation Total Bilirubin AST ALT Alkaline Phosphatase Total Protein Albumin Globulin Albumin/Globulin Ratio Urine Color Urine Clarity Urine pH Ur Specific [place] Urine Protein Urine Glucose (UA) Urine Ketones Urine Blood Urine Nitrate Urine Bilirubin Urine Urobilinogen Ur Leukocyte Esterase Urine WBC (Auto) Urine RBC (Auto) Ur Squamous Epith Cells Blood Type B POSITIVE B POSITIVE Antibody Screen Positive Positive Antibody Identification Anti C Anti C Crossmatch See Detail Enhanced Crossmatch See Detail 04/06/17 04/06/17 04/06/17 05:55 06:15 06:15 WBC RBC Hgb Hct MCV MCH MCHC RDW Plt Count MPV Neut % (Auto) Lymph % (Auto) [place] % (Auto) Eos % (Auto) Baso % (Auto) Neut # Lymph # [place] # Eos # Baso # Neutrophils % (Manual) Band Neutrophils % Lymphocytes % (Manual) Monocytes % (Manual) Platelet Estimate Polychromasia Hypochromasia (manual) Poikilocytosis (manual Anisocytosis (manual) Microcytosis (manual) Macrocytosis (manual) Target Cells Tear Drop Cells Ovalocytes [place] Cells PT INR APTT Sodium Potassium Chloride Carbon Dioxide Anion Gap BUN Creatinine Est GFR ( Amer) Est GFR (Non-Af Amer) POC Glucose (mg/dL) 180 H Random Glucose Hemoglobin A1c Calcium Phosphorus Magnesium Iron 92 TIBC 168 L % Saturation 55 Total Bilirubin AST ALT Alkaline Phosphatase Total Protein Albumin Globulin Albumin/Globulin Ratio Urine Color Straw Urine Clarity Clear Urine pH 6.0 Ur Specific [place] 1.009 Urine Protein Negative Urine Glucose (UA) 2+ H Urine Ketones Negative Urine Blood Negative Urine Nitrate Negative Urine Bilirubin Negative Urine Urobilinogen Normal Ur Leukocyte Esterase Neg Urine WBC (Auto) < 1 Urine RBC (Auto) < 1 Ur Squamous Epith Cells < 1 Blood Type Antibody Screen Antibody Identification Crossmatch Enhanced Crossmatch 04/06/17 04/06/17 04/06/17 06:15 06:15 06:15 WBC 21.7 H D RBC 4.49 Hgb 12.7 D Hct 38.1 MCV 84.9 MCH 28.3 MCHC 33.3 RDW 15.4 H Plt Count 150 MPV 8.0 Neut % (Auto) 86.1 H Lymph % (Auto) 8.3 L [place] % (Auto) 5.6 Eos % (Auto) 0.0 Baso % (Auto) 0.0 Neut # 18.7 H Lymph # 1.8 [place] # 1.2 H Eos # 0.0 Baso # 0.0 Neutrophils % (Manual) 90 H Band Neutrophils % 7 H Lymphocytes % (Manual) 1 L Monocytes % (Manual) 2 Platelet Estimate Normal Polychromasia Slight Hypochromasia (manual) Poikilocytosis (manual Anisocytosis (manual) Slight Microcytosis (manual) Macrocytosis (manual) Target Cells Tear Drop Cells Ovalocytes Slight [place] Cells Slight PT INR APTT Sodium 138 Potassium 3.9 Chloride 114 H Carbon Dioxide 15 L Anion Gap 12 BUN 14 Creatinine 0.4 L Est GFR ( Amer) > 60 Est GFR (Non-Af Amer) > 60 POC Glucose (mg/dL) Random Glucose 172 H Hemoglobin A1c 5.8 Calcium 5.5 L* D Phosphorus 4.2 Magnesium 1.5 L Iron TIBC % Saturation Total Bilirubin 0.9 AST 25 ALT 31 Alkaline Phosphatase 37 L D Total Protein 4.0 L Albumin 1.4 L D Globulin 2.6 Albumin/Globulin Ratio 0.6 L Urine Color Urine Clarity Urine pH Ur Specific [place] Urine Protein Urine Glucose (UA) Urine Ketones Urine Blood Urine Nitrate Urine Bilirubin Urine Urobilinogen Ur Leukocyte Esterase Urine WBC (Auto) Urine RBC (Auto) Ur Squamous Epith Cells Blood Type Antibody Screen Antibody Identification Crossmatch Enhanced Crossmatch 04/06/17 04/06/17 06:15 11:53 WBC RBC Hgb Hct MCV MCH MCHC RDW Plt Count MPV Neut % (Auto) Lymph % (Auto) [place] % (Auto) Eos % (Auto) Baso % (Auto) Neut # Lymph # [place] # Eos # Baso # Neutrophils % (Manual) Band Neutrophils % Lymphocytes % (Manual) Monocytes % (Manual) Platelet Estimate Polychromasia Hypochromasia (manual) Poikilocytosis (manual Anisocytosis (manual) Microcytosis (manual) Macrocytosis (manual) Target Cells Tear Drop Cells Ovalocytes [place] Cells PT 14.4 H INR 1.3 APTT 28 Sodium Potassium Chloride Carbon Dioxide Anion Gap BUN Creatinine Est GFR ( Amer) Est GFR (Non-Af Amer) POC Glucose (mg/dL) 111 H Random Glucose Hemoglobin A1c Calcium Phosphorus Magnesium Iron TIBC % Saturation Total Bilirubin AST ALT Alkaline Phosphatase Total Protein Albumin Globulin Albumin/Globulin Ratio Urine Color Urine Clarity Urine pH Ur Specific Coral Urine Protein Urine Glucose (UA) Urine Ketones Urine Blood Urine Nitrate Urine Bilirubin Urine Urobilinogen Ur Leukocyte Esterase Urine WBC (Auto) Urine RBC (Auto) Ur Squamous Epith Cells Blood Type Antibody Screen Antibody Identification Crossmatch Enhanced Crossmatch EKG/Cardiology Studies: Cardiology / EKG Studies 04/05/17 17:03 EKG [ELECTROCARDIOGRAM] Stat Comment: Mode Of Transportation: BED Reason For Exam: cp Fingerstick Blood Sugar Results: 180 Review of Systems - Review of Systems Systems not reviewed;Unavailable: Uncooperative - Breasts Breasts: Other (pressure dressing left breast with bloody dressing) - Cardiovascular Cardiovascular: Rapid Heart Rate. absent: Chest Pain - Respiratory Respiratory: absent: Dyspnea on Exertion, Pain on Inspiration, Chest Congestion - Gastrointestinal Gastrointestinal: absent: Abdominal Pain - Genitourinary Genitourinary: absent: Change in Urinary Stream Critical Care Progress Note - Ventilator Checklist PUD Prophalyxis: Yes DVT Prophylaxis: Yes Oral Care with Chlorhexidine Gluconate {CHG}: Yes - Extremities/Vascular Does the Patient have a Central Venous Catheter?: Yes (Patient allows placement of femoral line only. Risks, benefits and alternat) Insertion Site: Femoral Vein Does the Patient need a Central Venous Catheter?: Yes Does the Patient have a Landry Catheter?: No Does the Patient need a [place] Catheter?: No - Nutrition Nutrition: Nutrition Category Date Time Status Liquid Diet [DIET] Diets 04/06/17 Breakfast Active Assessment/Plan - Assessment and Plan (Free Text) Plan: Acute Blood Loss Anemia: 2nd bleeding, left breast ca with possible invasion into axillary vasculature -Leukocytosis: with last culture grew pseudomonas and -DVT ppx scds -PUD ppx nexium/PPI -BGM q6hrs Proxy: Patient verbalized that she wanted Kinberly to be her proxy and her mother. (forms to be filled) -Patient informed of the benefits of source control. Surgery consult appreciated. IR for possible embolectomy. Patient claims to have allergies to magnesium and PCN. Patient notes she felt weakness and prasthesisa post mag sulfate infusion. Parethesia is not a contraindication to mag sulfate infusion and not a true allergy. Patient also claims to have allergy to IV contrast ( which family disagrees). Patient has likely metastatic breast cancer and underlying prognosis very poor. Patient has refused multiple diagnostic tests. -Palliative eval consulted due to patient's poor prognosis and refusal to diagnostic and treatment options. Patient was informed of possible shawn exsanguination and or possible left limb compromise with resultant left limb ischemia. Patient verbalized understanding. Risks benefits and alternatives explaiend to patient. -fibrinogen and lactic pending critical care time spent 40 minutes
[2017-04-06 12:57] LABS: HEMATOCRIT 21.8 % (34.0-47.0); MEAN CORPUSCULAR HEMOGLOBIN 28.1 pg (27.0-31.0); MEAN PLATELET VOLUME 7.9 fL (7.2-11.7); RED CELL DISTRIBUTION WIDTH 15.1 % (11.5-14.5); WHITE BLOOD COUNT 12.2 K/uL (4.8-10.8)
[2017-04-06 13:19] LABS: MEAN CELL VOLUME 82.7 fL (81.0-99.0)
--- NOTE | 2017-04-06 13:29 | CP.PCM.CON ---
History of Present Illness - History of Present Illness History of Present Illness: 51 year old bed bound female with a history of rheumatoid arthritis, stage IV ER /GA negative, HER 2 positive breast cancer diagnosed 10/2016, admitted with bleeding breast/axillary mass. The patient is well known to me from previous admissions. She has undergone surgical debridement of her breast/axillary mass in the past. She has deferred chemotherapy and radiation treatments. She has had significant bleeding with a decline in her hgb requiring several units of PRBC transfusion. She is being monitored closely by the ICU and surgical service. Past medical history: rheumatoid arthritis Past surgical history: Family history: Denies hematologic and oncologic problems Social history: Denies tobacco, alcohol,and illicit drug use. Allergies: Several, see allergy list. Review of systems: All remaining review of systems including HEENT, cardiovascular, respiratory, gastrointestinal, genitourinary, musculoskeletal, dermatologic, neurologic, and psychiatric are negative unless mentioned in the HPI. Past Patient History - Infectious Disease Hx of Infectious Diseases: None - Past Medical History & Family History Past Medical History?: Yes - Past Social History Smoking Status: Never Smoked Chewing Tobacco Use: No Cigar Use: No Occupation: unemployed.worked in "[employer]" Alcohol: None Drugs: Denies Home Situation {Lives}: With Family - CARDIAC Hx Cardiac Disorders: No - PULMONARY Hx Respiratory Disorders: No - NEUROLOGICAL Hx Neurological Disorder: No - HEENT Hx HEENT Problems: No - RENAL Hx Chronic Kidney Disease: No - ENDOCRINE/METABOLIC Hx Endocrine Disorders: No - HEMATOLOGICAL/ONCOLOGICAL Hx Anemia: Yes Hx Blood Transfusions: Yes - INTEGUMENTARY Hx Dermatological Problems: Yes Other/Comment: left upper chest mass - MUSCULOSKELETAL/RHEUMATOLOGICAL Hx Falls: No - GASTROINTESTINAL Hx Gastrointestinal Disorders: No - GENITOURINARY/GYNECOLOGICAL Other/Comment: menopausal. breast CA - PSYCHIATRIC Hx Anxiety: Yes Hx Substance Use: No - SURGICAL HISTORY Hx Surgeries: Yes Hx Breast Biopsy: Yes Hx Section: Yes (x2) Other/Comment: d&c - ANESTHESIA Hx Anesthesia: Yes Hx Anesthesia Reactions: No Meds Allergies/Adverse Reactions: Allergies Allergy/AdvReac Type Severity Reaction Status Date / Time ciprofloxacin [From Cipro] Allergy SWELLING Verified 04/05/17 17:03 ibuprofen Allergy Verified 04/05/17 17:03 magnesium Allergy CONGESTION Verified 04/05/17 17:03 Penicillins Allergy SWELLING Verified 04/05/17 17:03 diphenhydramine AdvReac numbness Verified 04/05/17 17:03 [From Benadryl] on tongue and throath - Medications Medications: Current Medications Acetaminophen (Tylenol 325mg Tab) 325 mg PO Q4 PRN PRN Reason: pain Diphenhydramine HCl (Benadryl) 50 mg IVP ONCE ONE Stop: 04/06/17 17:01 Ferrous Sulfate (Feosol) 325 mg PO BID [facility] Last Admin: 04/06/17 10:21 Dose: 325 mg Vancomycin/Sodium Chloride (Vancomycin 1 Gm/Ns 200 Ml) 1 gm in 200 mls @ 166.7 mls/hr IVPB Q24H [facility] Stop: 04/11/17 10:01 Last Admin: 04/06/17 10:15 Dose: 166.7 mls/hr Cefepime HCl (Maxipime Iv 1 Gm Premix) 1 gm in 50 mls @ 100 mls/hr IVPB Q12H [facility] Insulin Human Regular (Novolin R) 0 unit SC Q6 DANNA PRN Reason: Protocol Last Admin: 04/06/17 06:22 Dose: Not Given Ondansetron HCl (Zofran Odt) 8 mg PO Q8H PRN PRN Reason: Nausea/Vomiting Pantoprazole Sodium (Protonix Ec Tab) 40 mg PO DAILY [facility] Last Admin: 04/06/17 10:16 Dose: 40 mg Saccharomyces Boulardii (Florastor) 250 mg PO DAILY [facility] Last Admin: 04/06/17 10:16 Dose: 250 mg Physical Exam - Constitutional Appears: Cachectic - Head Exam Head Exam: ATRAUMATIC - ENT Exam ENT Exam: Mucous Membranes Dry - Respiratory Exam Respiratory Exam: NORMAL BREATHING PATTERN - Cardiovascular Exam Cardiovascular Exam: +S1, +S2 - GI/Abdominal Exam GI & Abdominal Exam: Normal Bowel Sounds - Neurological Exam Neurological exam: Oriented x3 - Psychiatric Exam Psychiatric exam: Anxious, Normal Affect - Skin Skin Exam: Warm Results - Vital Signs Recent Vital Signs: Last Vital Signs Temp 98.3 F 04/06/17 12:00 Pulse 101 H 04/06/17 12:00 Resp 18 04/06/17 12:00 BP 107/54 L 04/06/17 12:00 Pulse Ox 100 04/06/17 12:00 - Labs Result Diagrams: 04/06/17 12:43 04/06/17 06:15 Labs: Laboratory Results - last 24 hr 04/05/17 04/05/17 04/05/17 18:02 18:02 18:07 WBC 17.2 H D RBC 3.51 L Hgb 7.4 L Hct 24.7 L MCV 70.3 L D MCH 21.1 L MCHC 30.0 L RDW 17.5 H Plt Count 492 H D MPV 7.4 Neut % (Auto) 88.3 H Lymph % (Auto) 6.0 L [place] % (Auto) 4.2 Eos % (Auto) 1.0 Baso % (Auto) 0.5 Neut # 15.2 H Lymph # 1.0 [place] # 0.7 Eos # 0.2 Baso # 0.1 Neutrophils % (Manual) 88 H Band Neutrophils % 2 Lymphocytes % (Manual) 4 L Monocytes % (Manual) 6 Platelet Estimate Normal Polychromasia Hypochromasia (manual) Moderate Poikilocytosis (manual Moderate Anisocytosis (manual) Moderate Microcytosis (manual) Slight Macrocytosis (manual) Slight Target Cells Slight Tear Drop Cells Slight Ovalocytes Slight [place] Cells Slight PT INR APTT Fibrinogen Sodium 131 L Potassium 4.1 Chloride 101 Carbon Dioxide 23 Anion Gap 11 BUN 16 Creatinine 0.5 L Est GFR ( Amer) > 60 Est GFR (Non-Af Amer) > 60 POC Glucose (mg/dL) 245 H Random Glucose 205 H Hemoglobin A1c Lactic Acid Calcium 7.5 L Phosphorus Magnesium Iron TIBC % Saturation Total Bilirubin 0.4 AST 25 ALT 26 Alkaline Phosphatase 82 Total Protein 6.1 L Albumin 2.5 L Globulin 3.6 Albumin/Globulin Ratio 0.7 L Urine Color Urine Clarity Urine pH Ur Specific [place] Urine Protein Urine Glucose (UA) Urine Ketones Urine Blood Urine Nitrate Urine Bilirubin Urine Urobilinogen Ur Leukocyte Esterase Urine WBC (Auto) Urine RBC (Auto) Ur Squamous Epith Cells Blood Type Antibody Screen Antibody Identification Crossmatch Enhanced Crossmatch 04/05/17 04/06/17 04/06/17 20:50 01:00 01:26 WBC 13.4 H RBC 2.28 L Hgb 6.2 L* Hct 19.4 L MCV 85.0 D MCH 27.2 MCHC 32.0 L RDW 16.0 H Plt Count 160 D MPV 7.9 Neut % (Auto) 83.8 H Lymph % (Auto) 12.5 L [place] % (Auto) 3.4 Eos % (Auto) 0.1 Baso % (Auto) 0.2 Neut # 11.2 H Lymph # 1.7 [place] # 0.4 Eos # 0.0 Baso # 0.0 Neutrophils % (Manual) Band Neutrophils % Lymphocytes % (Manual) Monocytes % (Manual) Platelet Estimate Polychromasia Hypochromasia (manual) Poikilocytosis (manual Anisocytosis (manual) Microcytosis (manual) Macrocytosis (manual) Target Cells Tear Drop Cells Ovalocytes [place] Cells PT INR APTT Fibrinogen Sodium Potassium Chloride Carbon Dioxide Anion Gap BUN Creatinine Est GFR ( Amer) Est GFR (Non-Af Amer) POC Glucose (mg/dL) Random Glucose Hemoglobin A1c Lactic Acid Calcium Phosphorus Magnesium Iron TIBC % Saturation Total Bilirubin AST ALT Alkaline Phosphatase Total Protein Albumin Globulin Albumin/Globulin Ratio Urine Color Urine Clarity Urine pH Ur Specific [place] Urine Protein Urine Glucose (UA) Urine Ketones Urine Blood Urine Nitrate Urine Bilirubin Urine Urobilinogen Ur Leukocyte Esterase Urine WBC (Auto) Urine RBC (Auto) Ur Squamous Epith Cells Blood Type B POSITIVE B POSITIVE Antibody Screen Positive Positive Antibody Identification Anti C Anti C Crossmatch See Detail Enhanced Crossmatch See Detail 04/06/17 04/06/17 04/06/17 05:55 06:15 06:15 WBC RBC Hgb Hct MCV MCH MCHC RDW Plt Count MPV Neut % (Auto) Lymph % (Auto) [place] % (Auto) Eos % (Auto) Baso % (Auto) Neut # Lymph # [place] # Eos # Baso # Neutrophils % (Manual) Band Neutrophils % Lymphocytes % (Manual) Monocytes % (Manual) Platelet Estimate Polychromasia Hypochromasia (manual) Poikilocytosis (manual Anisocytosis (manual) Microcytosis (manual) Macrocytosis (manual) Target Cells Tear Drop Cells Ovalocytes [place] Cells PT INR APTT Fibrinogen Sodium Potassium Chloride Carbon Dioxide Anion Gap BUN Creatinine Est GFR ( Amer) Est GFR (Non-Af Amer) POC Glucose (mg/dL) 180 H Random Glucose Hemoglobin A1c Lactic Acid Calcium Phosphorus Magnesium Iron 92 TIBC 168 L % Saturation 55 Total Bilirubin AST ALT Alkaline Phosphatase Total Protein Albumin Globulin Albumin/Globulin Ratio Urine Color Straw Urine Clarity Clear Urine pH 6.0 Ur Specific [place] 1.009 Urine Protein Negative Urine Glucose (UA) 2+ H Urine Ketones Negative Urine Blood Negative Urine Nitrate Negative Urine Bilirubin Negative Urine Urobilinogen Normal Ur Leukocyte Esterase Neg Urine WBC (Auto) < 1 Urine RBC (Auto) < 1 Ur Squamous Epith Cells < 1 Blood Type Antibody Screen Antibody Identification Crossmatch Enhanced Crossmatch 04/06/17 04/06/17 04/06/17 06:15 06:15 06:15 WBC 21.7 H D RBC 4.49 Hgb 12.7 D Hct 38.1 MCV 84.9 MCH 28.3 MCHC 33.3 RDW 15.4 H Plt Count 150 MPV 8.0 Neut % (Auto) 86.1 H Lymph % (Auto) 8.3 L [place] % (Auto) 5.6 Eos % (Auto) 0.0 Baso % (Auto) 0.0 Neut # 18.7 H Lymph # 1.8 [place] # 1.2 H Eos # 0.0 Baso # 0.0 Neutrophils % (Manual) 90 H Band Neutrophils % 7 H Lymphocytes % (Manual) 1 L Monocytes % (Manual) 2 Platelet Estimate Normal Polychromasia Slight Hypochromasia (manual) Poikilocytosis (manual Anisocytosis (manual) Slight Microcytosis (manual) Macrocytosis (manual) Target Cells Tear Drop Cells Ovalocytes Slight [place] Cells Slight PT INR APTT Fibrinogen Sodium 138 Potassium 3.9 Chloride 114 H Carbon Dioxide 15 L Anion Gap 12 BUN 14 Creatinine 0.4 L Est GFR ( Amer) > 60 Est GFR (Non-Af Amer) > 60 POC Glucose (mg/dL) Random Glucose 172 H Hemoglobin A1c 5.8 Lactic Acid Calcium 5.5 L* D Phosphorus 4.2 Magnesium 1.5 L Iron TIBC % Saturation Total Bilirubin 0.9 AST 25 ALT 31 Alkaline Phosphatase 37 L D Total Protein 4.0 L Albumin 1.4 L D Globulin 2.6 Albumin/Globulin Ratio 0.6 L Urine Color Urine Clarity Urine pH Ur Specific [place] Urine Protein Urine Glucose (UA) Urine Ketones Urine Blood Urine Nitrate Urine Bilirubin Urine Urobilinogen Ur Leukocyte Esterase Urine WBC (Auto) Urine RBC (Auto) Ur Squamous Epith Cells Blood Type Antibody Screen Antibody Identification Crossmatch Enhanced Crossmatch 04/06/17 04/06/17 04/06/17 06:15 11:53 12:43 WBC 12.2 H RBC 2.63 L Hgb 7.4 L D Hct 21.8 L MCV 82.7 D MCH 28.1 MCHC 34.0 RDW 15.1 H Plt Count 107 L D MPV 7.9 Neut % (Auto) Lymph % (Auto) [place] % (Auto) Eos % (Auto) Baso % (Auto) Neut # Lymph # [place] # Eos # Baso # Neutrophils % (Manual) Band Neutrophils % Lymphocytes % (Manual) Monocytes % (Manual) Platelet Estimate Polychromasia Hypochromasia (manual) Poikilocytosis (manual Anisocytosis (manual) Microcytosis (manual) Macrocytosis (manual) Target Cells Tear Drop Cells Ovalocytes [place] Cells PT 14.4 H INR 1.3 APTT 28 Fibrinogen Sodium Potassium Chloride Carbon Dioxide Anion Gap BUN Creatinine Est GFR ( Amer) Est GFR (Non-Af Amer) POC Glucose (mg/dL) 111 H Random Glucose Hemoglobin A1c Lactic Acid Calcium Phosphorus Magnesium Iron TIBC % Saturation Total Bilirubin AST ALT Alkaline Phosphatase Total Protein Albumin Globulin Albumin/Globulin Ratio Urine Color Urine Clarity Urine pH Ur Specific [place] Urine Protein Urine Glucose (UA) Urine Ketones Urine Blood Urine Nitrate Urine Bilirubin Urine Urobilinogen Ur Leukocyte Esterase Urine WBC (Auto) Urine RBC (Auto) Ur Squamous Epith Cells Blood Type Antibody Screen Antibody Identification Crossmatch Enhanced Crossmatch 04/06/17 04/06/17 12:43 12:43 WBC RBC Hgb Hct MCV MCH MCHC RDW Plt Count MPV Neut % (Auto) Lymph % (Auto) [place] % (Auto) Eos % (Auto) Baso % (Auto) Neut # Lymph # [place] # Eos # Baso # Neutrophils % (Manual) Band Neutrophils % Lymphocytes % (Manual) Monocytes % (Manual) Platelet Estimate Polychromasia Hypochromasia (manual) Poikilocytosis (manual Anisocytosis (manual) Microcytosis (manual) Macrocytosis (manual) Target Cells Tear Drop Cells Ovalocytes [place] Cells PT INR APTT Fibrinogen 190 L Sodium Potassium Chloride Carbon Dioxide Anion Gap BUN Creatinine Est GFR ( Amer) Est GFR (Non-Af Amer) POC Glucose (mg/dL) Random Glucose Hemoglobin A1c Lactic Acid 0.9 Calcium Phosphorus Magnesium Iron TIBC % Saturation Total Bilirubin AST ALT Alkaline Phosphatase Total Protein Albumin Globulin Albumin/Globulin Ratio Urine Color Urine Clarity Urine pH Ur Specific [place] Urine Protein Urine Glucose (UA) Urine Ketones Urine Blood Urine Nitrate Urine Bilirubin Urine Urobilinogen Ur Leukocyte Esterase Urine WBC (Auto) Urine RBC (Auto) Ur Squamous Epith Cells Blood Type Antibody Screen Antibody Identification Crossmatch Enhanced Crossmatch Assessment & Plan (1) Anemia Assessment and Plan: acute blood loss from tumor ? vessel erosion surgical follow up transfusion support Status: Acute (2) DIC (disseminated intravascular coagulation) Assessment and Plan: dilutional coagulopathy recommend FFP transfusion alternating with PRBC cryopercipitate if fibrinogen < 100 Status: Acute (3) Thrombocytopenia Assessment and Plan: DIC; dilutional coagulopathy Status: Acute (4) Leukocytosis Assessment and Plan: on antibiotics Thank you for this interesting consult. Status: Acute (5) Breast cancer Assessment and Plan: has deferred treatment supportive care Thank you for this interesting consult Status: Acute
--- NOTE | 2017-04-06 13:54 | CP.PCM.CON ---
History of Present Illness - History of Present Illness History of Present Illness: Palliative consult requested by Marybeth FOSS for goals of care discussion Patient is a 51 yo female admitted from home with bleeding left breast wound. Patient was seeing by the VNS for the daily left breast wound change due to bleeding wound secondary to breast cancer. Patient was diagnosed recently with metastatic breast cancer and had refed any suggested surgery or chemo Tx. Upon admission to ED BP was 69/40, and Hb 6.2. patient was revitalized by NS IV bolus and blood transfusions. The Hb came up to 12.7 and dropped again to 7.4 this morning due to profuse bleeding. patient does not allow nursing to open the dressing and examine the bleeding wound. Doctoe Lydia the breast Sx, was to come and examine the patient. PMH: severe arthritis with physical debility, bed ridden, anxiety Soc. Hx: , has two children, parents alive Fam. Hx: no significant Hx Review of Systems - Constitutional Constitutional: Weakness - EENT Eyes: Decreased Night Vision Ears: absent: As Per HPI, Decreased Hearing, Ear Discharge, Ear Pain, Tinnitus, Abnormal Hearing, Disequilibrium, Dizziness, Other Nose/Mouth/Throat: absent: As Per HPI, Epistaxis, Nasal Congestion, Nasal Discharge, Nasal Obstruction, Nasal Trauma, Nose Pain, Post Nasal Drip, Sinus Pain, Sinus Pressure, Bleeding Gums, Change in Voice, Dental Pain, Dry Mouth, Dysphagia, Halitosis, Hoarsness, Lip Swelling, Mouth Lesions, Mouth Pain, Odynophagia, Sore Throat, Throat Swelling, Tongue Swelling, Facial Pain, Neck Pain, Neck Mass, Other - Breasts Additional comments: left breast bleeding wound covered with PAMELA wrap - Cardiovascular Cardiovascular: Rapid Heart Rate - Respiratory Respiratory: absent: As Per HPI, Cough, Dyspnea, Hemoptysis, Dyspnea on Exertion , Wheezing, Snoring, Stridor, Pain on Inspiration, Chest Congestion, Excessive Mucous Production, Change in Mucous Color, Pain with Coughing, Other - Gastrointestinal Gastrointestinal: absent: As Per HPI, Abdominal Pain, Belching, Bloating, Change in Bowel Habits, Change in Stool Character, Coffee Ground Emesis, Constipation, Cramping, Diarrhea, Dyspepsia, Dysphagia, Early Satiety, Excessive Flatus, Fecal Incontinence, Heartburn, Hematemesis, Hematochezia, Loose Stools, Melena, Nausea, Odynophagia, Temesmus, Vomiting, Other - Genitourinary Genitourinary: absent: As Per HPI, Change in Urinary Stream, Difficulty Urinating, Dysuria, Flank Pain, Hematuria, Pyuria, Nocturia, Urinary Incontinence, Urinary Frequency, Urinary Hesitance, Urinary Urgency, Voiding Freq/Small Amts, Freq UTI, Hx Renal/Bladder Calculi, Hx /Renal Surgery, Bladder Distension, Other - Reproductive: Female Reproductive:Female: Post Menopausal - Menstruation Menstruation: Post Menopausal - Musculoskeletal Musculoskeletal: Abnormal Gait, Arthralgias, Atrophy, Back Pain, Deformity, Joint Swelling, Limited Range of Motion, Muscle Weakness, Stiffness - Integumentary Integumentary: Bleeding Lesions - Neurological Neurological: Focal Weakness - Psychiatric Psychiatric: Anxiety - Endocrine Endocrine: absent: As Per HPI, Change in Body Appearance, Change in Libido, Cold Intolorance, Deepening of Voice, Excessive Sweating, Fatigue, Flushing, Heat Intolorance, Increase in Ring/Shoe/Hat Size, Palpitations, Polydipsia, Polyphagia, Polyuria, Other - Hematologic/Lymphatic Hematologic: Easy Bleeding Past Patient History - Infectious Disease Hx of Infectious Diseases: None - Past Medical History & Family History Past Medical History?: Yes - Past Social History Smoking Status: Never Smoked Chewing Tobacco Use: No Cigar Use: No Occupation: unemployed.worked in "management" Alcohol: None Drugs: Denies Home Situation {Lives}: With Family - CARDIAC Hx Cardiac Disorders: No - PULMONARY Hx Respiratory Disorders: No - NEUROLOGICAL Hx Neurological Disorder: No - HEENT Hx HEENT Problems: No - RENAL Hx Chronic Kidney Disease: No - ENDOCRINE/METABOLIC Hx Endocrine Disorders: No - HEMATOLOGICAL/ONCOLOGICAL Hx Anemia: Yes Hx Blood Transfusions: Yes - INTEGUMENTARY Hx Dermatological Problems: Yes Other/Comment: left upper chest mass - MUSCULOSKELETAL/RHEUMATOLOGICAL Hx Falls: No - GASTROINTESTINAL Hx Gastrointestinal Disorders: No - GENITOURINARY/GYNECOLOGICAL Other/Comment: menopausal. breast CA - PSYCHIATRIC Hx Anxiety: Yes Hx Substance Use: No - SURGICAL HISTORY Hx Surgeries: Yes Hx Breast Biopsy: Yes Hx Section: Yes (x2) Other/Comment: d&c - ANESTHESIA Hx Anesthesia: Yes Hx Anesthesia Reactions: No Meds Allergies/Adverse Reactions: Allergies Allergy/AdvReac Type Severity Reaction Status Date / Time ciprofloxacin [From Cipro] Allergy SWELLING Verified 04/05/17 17:03 ibuprofen Allergy Verified 04/05/17 17:03 magnesium Allergy CONGESTION Verified 04/05/17 17:03 Penicillins Allergy SWELLING Verified 04/05/17 17:03 diphenhydramine AdvReac numbness Verified 04/05/17 17:03 [From Benadryl] on tongue and throath - Medications Medications: Current Medications Acetaminophen (Tylenol 325mg Tab) 325 mg PO Q4 PRN PRN Reason: pain Diphenhydramine HCl (Benadryl) 50 mg IVP ONCE ONE Stop: 04/06/17 17:01 Ferrous Sulfate (Feosol) 325 mg PO BID [facility] Last Admin: 04/06/17 10:21 Dose: 325 mg Vancomycin/Sodium Chloride (Vancomycin 1 Gm/Ns 200 Ml) 1 gm in 200 mls @ 166.7 mls/hr IVPB Q24H [facility] Stop: 04/11/17 10:01 Last Admin: 04/06/17 10:15 Dose: 166.7 mls/hr Cefepime HCl (Maxipime Iv 1 Gm Premix) 1 gm in 50 mls @ 100 mls/hr IVPB Q12H [facility] Insulin Human Regular (Novolin R) 0 unit SC Q6 DANNA PRN Reason: Protocol Last Admin: 04/06/17 06:22 Dose: Not Given Ondansetron HCl (Zofran Odt) 8 mg PO Q8H PRN PRN Reason: Nausea/Vomiting Pantoprazole Sodium (Protonix Ec Tab) 40 mg PO DAILY [facility] Last Admin: 04/06/17 10:16 Dose: 40 mg Saccharomyces Boulardii (Florastor) 250 mg PO DAILY [facility] Last Admin: 04/06/17 10:16 Dose: 250 mg Physical Exam - Constitutional Appears: In Acute Distress, Chronically Ill - Head Exam Head Exam: ATRAUMATIC, NORMAL INSPECTION, NORMOCEPHALIC - Eye Exam Eye Exam: EOMI, Normal appearance, PERRL Pupil Exam: NORMAL ACCOMODATION, PERRL - ENT Exam ENT Exam: Mucous Membranes Moist, Normal Exam - Neck Exam Neck exam: Positive for: Normal Inspection - Respiratory Exam Respiratory Exam: Decreased Breath Sounds - Cardiovascular Exam Cardiovascular Exam: Tachycardia - GI/Abdominal Exam GI & Abdominal Exam: Normal Bowel Sounds, Soft - Rectal Exam Rectal Exam: Deferred - Extremities Exam Extremities exam: Positive for: joint swelling Additional comments: contractures, severe arthritis - Back Exam Back exam: NORMAL INSPECTION - Neurological Exam Neurological exam: Alert, Oriented x3 - Psychiatric Exam Psychiatric exam: Anxious - Skin Skin Exam: Pallor Results - Vital Signs Recent Vital Signs: Last Vital Signs Temp 98.3 F 04/06/17 12:00 Pulse 101 H 04/06/17 12:00 Resp 18 04/06/17 12:00 BP 107/54 L 04/06/17 12:00 Pulse Ox 100 04/06/17 12:00 - Labs Result Diagrams: 04/06/17 12:43 04/06/17 06:15 Labs: Laboratory Results - last 24 hr 04/05/17 04/05/17 04/05/17 18:02 18:02 18:07 WBC 17.2 H D RBC 3.51 L Hgb 7.4 L Hct 24.7 L MCV 70.3 L D MCH 21.1 L MCHC 30.0 L RDW 17.5 H Plt Count 492 H D MPV 7.4 Neut % (Auto) 88.3 H Lymph % (Auto) 6.0 L [place] % (Auto) 4.2 Eos % (Auto) 1.0 Baso % (Auto) 0.5 Neut # 15.2 H Lymph # 1.0 Mclennan # 0.7 Eos # 0.2 Baso # 0.1 Neutrophils % (Manual) 88 H Band Neutrophils % 2 Lymphocytes % (Manual) 4 L Monocytes % (Manual) 6 Platelet Estimate Normal Polychromasia Hypochromasia (manual) Moderate Poikilocytosis (manual Moderate Anisocytosis (manual) Moderate Microcytosis (manual) Slight Macrocytosis (manual) Slight Target Cells Slight Tear Drop Cells Slight Ovalocytes Slight Suad Cells Slight PT INR APTT Fibrinogen Sodium 131 L Potassium 4.1 Chloride 101 Carbon Dioxide 23 Anion Gap 11 BUN 16 Creatinine 0.5 L Est GFR ( Amer) > 60 Est GFR (Non-Af Amer) > 60 POC Glucose (mg/dL) 245 H Random Glucose 205 H Hemoglobin A1c Lactic Acid Calcium 7.5 L Phosphorus Magnesium Iron TIBC % Saturation Total Bilirubin 0.4 AST 25 ALT 26 Alkaline Phosphatase 82 Total Protein 6.1 L Albumin 2.5 L Globulin 3.6 Albumin/Globulin Ratio 0.7 L Urine Color Urine Clarity Urine pH Ur Specific [place] Urine Protein Urine Glucose (UA) Urine Ketones Urine Blood Urine Nitrate Urine Bilirubin Urine Urobilinogen Ur Leukocyte Esterase Urine WBC (Auto) Urine RBC (Auto) Ur Squamous Epith Cells Blood Type Antibody Screen Antibody Identification Crossmatch Enhanced Crossmatch 04/05/17 04/06/17 04/06/17 20:50 01:00 01:26 WBC 13.4 H RBC 2.28 L Hgb 6.2 L* Hct 19.4 L MCV 85.0 D MCH 27.2 MCHC 32.0 L RDW 16.0 H Plt Count 160 D MPV 7.9 Neut % (Auto) 83.8 H Lymph % (Auto) 12.5 L Mclennan % (Auto) 3.4 Eos % (Auto) 0.1 Baso % (Auto) 0.2 Neut # 11.2 H Lymph # 1.7 [place]cl[place]an # 0.4 Eos # 0.0 Baso # 0.0 Neutrophils % (Manual) Band Neutrophils % Lymphocytes % (Manual) Monocytes % (Manual) Platelet Estimate Polychromasia Hypochromasia (manual) Poikilocytosis (manual Anisocytosis (manual) Microcytosis (manual) Macrocytosis (manual) Target Cells Tear Drop Cells Ovalocytes Suad Cells PT INR APTT Fibrinogen Sodium Potassium Chloride Carbon Dioxide Anion Gap BUN Creatinine Est GFR ( Amer) Est GFR (Non-Af Amer) POC Glucose (mg/dL) Random Glucose Hemoglobin A1c Lactic Acid Calcium Phosphorus Magnesium Iron TIBC % Saturation Total Bilirubin AST ALT Alkaline Phosphatase Total Protein Albumin Globulin Albumin/Globulin Ratio Urine Color Urine Clarity Urine pH Ur Specific [place] Urine Protein Urine Glucose (UA) Urine Ketones Urine Blood Urine Nitrate Urine Bilirubin Urine Urobilinogen Ur Leukocyte Esterase Urine WBC (Auto) Urine RBC (Auto) Ur Squamous Epith Cells Blood Type B POSITIVE B POSITIVE Antibody Screen Positive Positive Antibody Identification Anti C Anti C Crossmatch See Detail Enhanced Crossmatch See Detail 04/06/17 04/06/17 04/06/17 05:55 06:15 06:15 WBC RBC Hgb Hct MCV MCH MCHC RDW Plt Count MPV Neut % (Auto) Lymph % (Auto) Mclennan % (Auto) Eos % (Auto) Baso % (Auto) Neut # Lymph # [place] # Eos # Baso # Neutrophils % (Manual) Band Neutrophils % Lymphocytes % (Manual) Monocytes % (Manual) Platelet Estimate Polychromasia Hypochromasia (manual) Poikilocytosis (manual Anisocytosis (manual) Microcytosis (manual) Macrocytosis (manual) Target Cells Tear Drop Cells Ovalocytes [place] Cells PT INR APTT Fibrinogen Sodium Potassium Chloride Carbon Dioxide Anion Gap BUN Creatinine Est GFR ( Amer) Est GFR (Non-Af Amer) POC Glucose (mg/dL) 180 H Random Glucose Hemoglobin A1c Lactic Acid Calcium Phosphorus Magnesium Iron 92 TIBC 168 L % Saturation 55 Total Bilirubin AST ALT Alkaline Phosphatase Total Protein Albumin Globulin Albumin/Globulin Ratio Urine Color Straw Urine Clarity Clear Urine pH 6.0 Ur Specific [place] 1.009 Urine Protein Negative Urine Glucose (UA) 2+ H Urine Ketones Negative Urine Blood Negative Urine Nitrate Negative Urine Bilirubin Negative Urine Urobilinogen Normal Ur Leukocyte Esterase Neg Urine WBC (Auto) < 1 Urine RBC (Auto) < 1 Ur Squamous Epith Cells < 1 Blood Type Antibody Screen Antibody Identification Crossmatch Enhanced Crossmatch 04/06/17 04/06/17 04/06/17 06:15 06:15 06:15 WBC 21.7 H D RBC 4.49 Hgb 12.7 D Hct 38.1 MCV 84.9 MCH 28.3 MCHC 33.3 RDW 15.4 H Plt Count 150 MPV 8.0 Neut % (Auto) 86.1 H Lymph % (Auto) 8.3 L Mclennan % (Auto) 5.6 Eos % (Auto) 0.0 Baso % (Auto) 0.0 Neut # 18.7 H Lymph # 1.8 Mclennan # 1.2 H Eos # 0.0 Baso # 0.0 Neutrophils % (Manual) 90 H Band Neutrophils % 7 H Lymphocytes % (Manual) 1 L Monocytes % (Manual) 2 Platelet Estimate Normal Polychromasia Slight Hypochromasia (manual) Poikilocytosis (manual Anisocytosis (manual) Slight Microcytosis (manual) Macrocytosis (manual) Target Cells Tear Drop Cells Ovalocytes Slight Suad Cells Slight PT INR APTT Fibrinogen Sodium 138 Potassium 3.9 Chloride 114 H Carbon Dioxide 15 L Anion Gap 12 BUN 14 Creatinine 0.4 L Est GFR ( Amer) > 60 Est GFR (Non-Af Amer) > 60 POC Glucose (mg/dL) Random Glucose 172 H Hemoglobin A1c 5.8 Lactic Acid Calcium 5.5 L* D Phosphorus 4.2 Magnesium 1.5 L Iron TIBC % Saturation Total Bilirubin 0.9 AST 25 ALT 31 Alkaline Phosphatase 37 L D Total Protein 4.0 L Albumin 1.4 L D Globulin 2.6 Albumin/Globulin Ratio 0.6 L Urine Color Urine Clarity Urine pH Ur Specific [place] Urine Protein Urine Glucose (UA) Urine Ketones Urine Blood Urine Nitrate Urine Bilirubin Urine Urobilinogen Ur Leukocyte Esterase Urine WBC (Auto) Urine RBC (Auto) Ur Squamous Epith Cells Blood Type Antibody Screen Antibody Identification Crossmatch Enhanced Crossmatch 04/06/17 04/06/17 04/06/17 06:15 11:53 12:43 WBC 12.2 H RBC 2.63 L Hgb 7.4 L D Hct 21.8 L MCV 82.7 D MCH 28.1 MCHC 34.0 RDW 15.1 H Plt Count 107 L D MPV 7.9 Neut % (Auto) Lymph % (Auto) Mclennan % (Auto) Eos % (Auto) Baso % (Auto) Neut # Lymph # [place] # Eos # Baso # Neutrophils % (Manual) Band Neutrophils % Lymphocytes % (Manual) Monocytes % (Manual) Platelet Estimate Polychromasia Hypochromasia (manual) Poikilocytosis (manual Anisocytosis (manual) Microcytosis (manual) Macrocytosis (manual) Target Cells Tear Drop Cells Ovalocytes Suad Cells PT 14.4 H INR 1.3 APTT 28 Fibrinogen Sodium Potassium Chloride Carbon Dioxide Anion Gap BUN Creatinine Est GFR ( Amer) Est GFR (Non-Af Amer) POC Glucose (mg/dL) 111 H Random Glucose Hemoglobin A1c Lactic Acid Calcium Phosphorus Magnesium Iron TIBC % Saturation Total Bilirubin AST ALT Alkaline Phosphatase Total Protein Albumin Globulin Albumin/Globulin Ratio Urine Color Urine Clarity Urine pH Ur Specific [place] Urine Protein Urine Glucose (UA) Urine Ketones Urine Blood Urine Nitrate Urine Bilirubin Urine Urobilinogen Ur Leukocyte Esterase Urine WBC (Auto) Urine RBC (Auto) Ur Squamous Epith Cells Blood Type Antibody Screen Antibody Identification Crossmatch Enhanced Crossmatch 04/06/17 04/06/17 12:43 12:43 WBC RBC Hgb Hct MCV MCH MCHC RDW Plt Count MPV Neut % (Auto) Lymph % (Auto) [place]clennan % (Auto) Eos % (Auto) Baso % (Auto) Neut # Lymph # [place] # Eos # Baso # Neutrophils % (Manual) Band Neutrophils % Lymphocytes % (Manual) Monocytes % (Manual) Platelet Estimate Polychromasia Hypochromasia (manual) Poikilocytosis (manual Anisocytosis (manual) Microcytosis (manual) Macrocytosis (manual) Target Cells Tear Drop Cells Ovalocytes [place] Cells PT INR APTT Fibrinogen 190 L Sodium Potassium Chloride Carbon Dioxide Anion Gap BUN Creatinine Est GFR ( Amer) Est GFR (Non-Af Amer) POC Glucose (mg/dL) Random Glucose Hemoglobin A1c Lactic Acid 0.9 Calcium Phosphorus Magnesium Iron TIBC % Saturation Total Bilirubin AST ALT Alkaline Phosphatase Total Protein Albumin Globulin Albumin/Globulin Ratio Urine Color Urine Clarity Urine pH Ur Specific [place] Urine Protein Urine Glucose (UA) Urine Ketones Urine Blood Urine Nitrate Urine Bilirubin Urine Urobilinogen Ur Leukocyte Esterase Urine WBC (Auto) Urine RBC (Auto) Ur Squamous Epith Cells Blood Type Antibody Screen Antibody Identification Crossmatch Enhanced Crossmatch Assessment & Plan - Assessment and Plan (Free Text) Plan: Palliative consult Code status DNR/DNI, advance directive on chart, PPS 10% I reviewed medical records, all diagnostic studies, examined and interviewed patient in the bed. Patient is alert, oriented X 3, very anxious, with pool of blood and blood cloths to her left breast. Patient has been bleeding since arrival to ED and was not allow any one to touch the wound unless Doctor Amos was present. The dressing is saturated with blood, the smell of blood is sensed in the room, the linen under patient is saturated with blood. Latest Hb 7.4 after blood and plasma transfusion. BP 107/54, HR 101. Two more units of PRBs were ordered. There is limited ROM to left arm and condition is guarded. The hands and feet joints are all deformed due to arthritis. Patient is bed ridden. The surgical dressing maker and Doctor Jonathon were at bed side discussing plan of care with patient. It was proposed that CT scan with contrast be administered when condition permits to identify the source of bleeding. Patient demonstrated severely anxious behavior during the discussion, sending mixed signals of fear, uncertainty, and denial . After being reassured of her safety , patient agreed with the diagnostic study. Due to active bleeding and stated allergies to IV contrast patient will be stabilized before any procedure done. I discussed goals of care with patient. two friends and the mother were at bed side. Patient admitted knowledge of her diagnosis and very critical condition . patient also admits to severe anxiety and fear of any interventions . Patient expresses desire to be feeling good, but when it comes to discussing details of care, patient admits to fear of pain and " fear of dying". Patient offers has not slept all night last night. In phone conversation with patient's daughter Jennifer, I was told that patient wanted her to be the surrogate decision maker. Jennifer feels that her mother has suffered a lot and her, her brother and father, all wanted patient to be allowed natural if all other prudent medical interventions do not bring about any benefices for the patient. Jennifer signed DNR/DNI last night . Impression * This is chronically and most likely ill patient with metastatic breast cancer and actively bleeding breast wound * Patient has refused surgical interventions in the past as well as chemo Tx * Patient is fully aware of her diagnosis but appears irrational when it comes to care planing * There is severe anxiety that prevents patient from receiving adequate care * There is a psychosocial distress * Family very supportive and is advocating or comfort care only Suggestion * Control bleeding * Would medicate for anxiety * Reassure of safety * Pastoral care for spiritual support * Agree with DNR/DNI I will fallow up with patient and family and offer support Thank you for consulting palliative care
[2017-04-06] MEDS ORDERED: Iodixanol 320 mg/ml 150 ml Bottle IV ONE (14:45)
--- NOTE | 2017-04-06 15:43 | VASCLAB ---
PROCEDURE: Lower Extremity Venous Duplex Exam. HISTORY: r/o dvt PRIORS: None. TECHNIQUE: Bilateral common femoral, femoral, popliteal and posterior tibial, peroneal and great saphenous veins were evaluated. Flow was assessed with color Doppler, compressibility, assessment of phasic flow and augmentation response. Report prepared by BLUE Amaro, RVT FINDINGS: RIGHT: 1. Common Femoral Vein: 1.1. Compressibility - Fully compressible: Thrombus - None : Flow - Phasic: Augmentation -Normal: Reflux - None. 2. Femoral Vein: 2.1. Not well visualized. 3. Popliteal Vein: 3.1. Compressibility - Fully compressible: Thrombus - None : Flow - Phasic: Augmentation -Normal: Reflux - None. 4. Posterior Tibial Vein: 4.1. Not well visualized. 5. Peroneal Vein: 5.1. Not well-visualized. 6. Great Saphenous Vein: 6.1. Not well-visualized. LEFT: 1. Common Femoral Vein: 1.1. Not well-visualized. 2. Femoral Vein: 2.1. Compressibility - Fully compressible: Thrombus - None: Flow - Phasic: Augmentation -Normal: Reflux - None. 3. Popliteal Vein: 3.1. Not well-visualized. 4. Posterior Tibial Vein: 4.1. Not well-visualized. 5. Peroneal Vein: 5.1. Not well visualized. 6. Great Saphenous Vein: 6.1. Not well-visualized. OTHER FINDINGS: Technically difficult and very limited study due to patient contracted body position. IMPRESSION: Right: No evidence of deep vein thrombosis of the right common femoral and popliteal veins. Left: No evidence of deep vein thrombosis of the left femoral vein.
--- NOTE | 2017-04-06 16:19 | CT ---
PROCEDURE: CT Chest with contrast HISTORY: Bleeding/Fungating L breast mass COMPARISON: 11/06/2016 TECHNIQUE: CT angiography/venography of the chest was performed following the intravenous administration of contrast material. Contiguous 2.5 mm axial sections were acquired through the chest. Sagittal and coronal images were reformatted from the axial images. Images were acquired both during the arterial and venous phases of enhancement. IV contrast: 100 mL Visipaque 320 Radiation dose (DLP): 535.81 mGy-cm. This CT exam was performed using one or more of the following dose reduction techniques: Automated exposure control, adjustment of the mA and/or kV according to patient size, and/or use of iterative reconstruction technique. FINDINGS: LUNGS: No pulmonary infiltrate. Stable 4 mm left upper lobe pulmonary nodule, abutting the major fissure. Stable 4 mm right lower lobe pulmonary nodule. Small bilateral pleural effusion, left greater than right. Left lower lobe compressive atelectasis. MEDIASTINUM: Unremarkable thoracic aorta. No aneurysm or dissection. Normal sized heart. Main pulmonary artery unremarkable. No vascular congestion. No mediastinal or hilar lymphadenopathy. Left axillary lymphadenopathy is noted. There is a left antro lateral fungating chest wall mass extending to the axillary tail of the left breast. This mass measures approximately 8.8 x 9.6 by 10.9 cm. This has increased in size from prior chest CT examination of 11/06/2016. The mass appears heterogeneously necrotic with ill-defined areas of nonenhancement. Small feeding arterial vessels are seen arising from the left lateral chest wall as well as the upper anterior left chest wall. . There is no evidence of encroachment upon or invasion of the left axillary/ brachial artery or vein. PLEURA: As above BONES: Multiple lytic osseous lesions. There is a mixed lytic and sclerotic lesion in the left side of the T8 vertebra extending into the posterior elements on the left side. This is not evident previously. There is a large lytic lesion of the T6 vertebral body new since prior. There is a new lytic lesion of the posterior T3 vertebral body, new since prior. There is a small lytic lesion of the posterior T4 vertebral body along its left side. This is new since prior. UPPER ABDOMEN: There is a 1.2 cm nonspecific low-density mass in the anterior right hepatic lobe and a 1.5 cm nonspecific low-attenuation mass in the lateral left hepatic lobe. There is a not evident on prior noncontrast chest CT examination of 11/06/2016. OTHER FINDINGS: None. IMPRESSION: Large partially necrotic left chest wall/ breast mass. Left axillary lymphadenopathy. Multiple lytic osseous metastases. No evidence of invasion of large vessels of the left axilla/upper extremity. Additional minor findings as above.
[2017-04-06] MEDS ORDERED: Lactated Ringer's 1,000 ML IV ONE (16:28)
[2017-04-06] MEDS ORDERED: DiphenhydrAMINE 50 mg/ml Inj IVP ONE (17:00)
[2017-04-06] MEDS: Lactated Ringer's 1,000 ML IV SCH (17:09)
--- NOTE | 2017-04-06 17:47 | CP.PCM.CON ---
History of Present Illness - History of Present Illness History of Present Illness: 51 year old female with large left breast invasive ductal carcinoma presented with bleeding mass. Mass friable and started bleeding profusely after dressing change. Patient stabilized and transferred to ICU. Admits to chest pain, palpitations, SOB, dizziness, vertigo. Denies fever/chills, abdominal pain, nausea/vomiting, diarrhea. Mass previously cultured and grew pseudomonas and GPC. ID consulted for antibiotic management PMH: RA, breast carcinoma with fungating mass, anemia, vertigo Meds: Per EMR Allergy: Ciprofloxacin, ibuprofen, magnesium, PCN, diphenhydramine PSH: core needle biopsy left breast mass FH: unknown Social: denies tobacco, EtOH, illicit drug use Review of Systems - Review of Systems All systems: reviewed and no additional remarkable complaints except - Constitutional Constitutional: As Per HPI - EENT Eyes: absent: As Per HPI, Blind Spots, Blurred Vision, Change in Vision, Decreased Night Vision, Diplopia, Discharge, Dry Eye, Exophthalmos, Floaters, Irritation, Itchy Eyes, Loss of Peripheral Vision, Pain, Photophobia, Requires Corrective Lenses, Sees Flashes, Spots in Vision, Tunnel Vision, Other Visual Disturbances, Loss of Vision, Other Ears: absent: As Per HPI, Decreased Hearing, Ear Discharge, Ear Pain, Tinnitus, Abnormal Hearing, Disequilibrium, Dizziness, Other Nose/Mouth/Throat: absent: As Per HPI, Epistaxis, Nasal Congestion, Nasal Discharge, Nasal Obstruction, Nasal Trauma, Nose Pain, Post Nasal Drip, Sinus Pain, Sinus Pressure, Bleeding Gums, Change in Voice, Dental Pain, Dry Mouth, Dysphagia, Halitosis, Hoarsness, Lip Swelling, Mouth Lesions, Mouth Pain, Odynophagia, Sore Throat, Throat Swelling, Tongue Swelling, Facial Pain, Neck Pain, Neck Mass, Other - Breasts Breasts: As Per HPI - Cardiovascular Cardiovascular: absent: As Per HPI, Acrocyanosis, Chest Pain, Chest Pain at Rest , Chest Pain with Activity, Claudication, Diaphoresis, Dyspnea, Dyspnea on Exertion, Edema, Irregular Heart Rhythm, Pain Radiating to Arm/Neck/Jaw, Leg Edema, Leg Ulcers, Lightheadedness, Orthopnea, Palpitations, Paroxysmal Nocturnal Dyspnea, Pedal Edema, Radiating Pain, Rapid Heart Rate, Slow Heart Rate, Syncope, Other - Respiratory Respiratory: absent: As Per HPI, Cough, Dyspnea, Hemoptysis, Dyspnea on Exertion , Wheezing, Snoring, Stridor, Pain on Inspiration, Chest Congestion, Excessive Mucous Production, Change in Mucous Color, Pain with Coughing, Other - Gastrointestinal Gastrointestinal: absent: As Per HPI, Abdominal Pain, Belching, Bloating, Change in Bowel Habits, Change in Stool Character, Coffee Ground Emesis, Constipation, Cramping, Diarrhea, Dyspepsia, Dysphagia, Early Satiety, Excessive Flatus, Fecal Incontinence, Heartburn, Hematemesis, Hematochezia, Loose Stools, Melena, Nausea, Odynophagia, Temesmus, Vomiting, Other - Genitourinary Genitourinary: absent: As Per HPI, Change in Urinary Stream, Difficulty Urinating, Dysuria, Flank Pain, Hematuria, Pyuria, Nocturia, Urinary Incontinence, Urinary Frequency, Urinary Hesitance, Urinary Urgency, Voiding Freq/Small Amts, Freq UTI, Hx Renal/Bladder Calculi, Hx /Renal Surgery, Bladder Distension, Other - Reproductive: Female Reproductive:Female: absent: As Per HPI, Amenorrhea, Amenorrhea/ Control, Currently Menstual, Cycle <21 Days, Cycle >35 Days, Cycle Variable, Menses 1-7 Days, Menses >/= 8 Days, Menses Variable, Cycle > 4 Weeks Between, No Menses for 6 Months, Heavy Menses, Light Menses, Normal Menses, Spotting Between Cycles , S/P Hysterectomy, Menopausal, Post Menopausal, Premenarche, Abnormal Vaginal Bleeding, Dysmenorrhea, Dyspareunia, Genital Lesions, Genital Pruritis, Pelvic Pain, Prolapse Symptoms, Sexual Dysfunction, Vaginal Discharge, Vaginal Dryness , Vaginal Odor, Vaginal Pruritis, Other - Menstruation Menstruation: absent: As Per HPI, Amenorrhea, Amenorrhea/ Control, Currently Menstual, Cycle <21 Days, Cycle >35 Days, Cycle Variable, Menses 1-7 Days, Menses >/= 8 Days, Menses Variable, Cycle > 4 Weeks Between, No Menses for 6 Months, Heavy Menses, Light Menses, Normal Menses, Spotting Between Cycles , S/P Hysterectomy, Menopausal, Post Menopausal, Premenarche, Abnormal Vaginal Bleeding, Dysmenorrhea, Other - Musculoskeletal Musculoskeletal: absent: As Per HPI, Abnormal Gait, Arthralgias, Atrophy, Back Pain, Deformity, Joint Swelling, Limited Range of Motion, Loss of Height, Muscle Cramps, Muscle Weakness, Myalgias, Neck Pain, Numbness, Radiating Pain into Limb, Stiffness, Tingling, Other - Integumentary Integumentary: As Per HPI - Neurological Neurological: absent: As Per HPI, Abnormal Gait, Abnormal Hearing, Abnormal Movements, Abnormal Speech, Behavioral Changes, Burning Sensations, Confusion, Convulsions, Disequilibrium, Dizziness, Numbness, Focal Weakness, Frequent Falls , Headaches, Lack of Coordination, Loss of Vision, Memory Loss, Paresthesias, Radicular Pain, Restless Legs, Sensory Deficit, Syncope, Tingling, Tremor, Vertigo, Weakness, Other Visual Disturbances, Other - Psychiatric Psychiatric: absent: As Per HPI, Abnormal Sleep Pattern, Anhedonia, Anxiety, Auditory Hallucinations, Behavioral Changes, Change in Appetite, Change in Libido, Confusion, Depression, Difficulty Concentrating, Hallucinations, Homicidal Ideation, Hopelessness, Irritability, Memory Loss, Mood Swings, Panic Attacks, Paranoia, Suicidal Ideation, Visual Hallucinations, Tactile Hallucinations, Other - Endocrine Endocrine: absent: As Per HPI, Change in Body Appearance, Change in Libido, Cold Intolorance, Deepening of Voice, Excessive Sweating, Fatigue, Flushing, Heat Intolorance, Increase in Ring/Shoe/Hat Size, Palpitations, Polydipsia, Polyphagia, Polyuria, Other - Hematologic/Lymphatic Hematologic: absent: As Per HPI, Easy Bleeding, Easy Bruising, Lymphadenopathy, Other Past Patient History - Infectious Disease Hx of Infectious Diseases: None - Past Medical History & Family History Past Medical History?: Yes - Past Social History Smoking Status: Never Smoked - CARDIAC Hx Cardiac Disorders: No - PULMONARY Hx Respiratory Disorders: No - NEUROLOGICAL Hx Neurological Disorder: No - HEENT Hx HEENT Problems: No - RENAL Hx Chronic Kidney Disease: No - ENDOCRINE/METABOLIC Hx Endocrine Disorders: No - HEMATOLOGICAL/ONCOLOGICAL Hx Anemia: Yes - INTEGUMENTARY Hx Dermatological Problems: Yes Other/Comment: left upper chest mass - MUSCULOSKELETAL/RHEUMATOLOGICAL Hx Arthritis: Yes (severe athritis) Hx Rheumatoid Arthritis: Yes - GASTROINTESTINAL Hx Gastrointestinal Disorders: No - GENITOURINARY/GYNECOLOGICAL Other/Comment: menopausal. breast CA - PSYCHIATRIC Hx Anxiety: Yes Hx Substance Use: No - SURGICAL HISTORY Hx Surgeries: Yes Hx Breast Biopsy: Yes Hx Section: Yes (x2) Other/Comment: d&c - ANESTHESIA Hx Anesthesia: Yes Hx Anesthesia Reactions: No Meds Allergies/Adverse Reactions: Allergies Allergy/AdvReac Type Severity Reaction Status Date / Time ciprofloxacin [From Cipro] Allergy SWELLING Verified 04/05/17 17:03 ibuprofen Allergy Verified 04/05/17 17:03 magnesium Allergy CONGESTION Verified 04/05/17 17:03 Penicillins Allergy SWELLING Verified 04/05/17 17:03 diphenhydramine AdvReac numbness Verified 04/05/17 17:03 [From Benadryl] on tongue and throath - Medications Medications: Current Medications Acetaminophen (Tylenol 325mg Tab) 325 mg PO Q4 PRN PRN Reason: pain Ferrous Sulfate (Feosol) 325 mg PO BID [facility] Last Admin: 04/06/17 10:21 Dose: 325 mg Vancomycin/Sodium Chloride (Vancomycin 1 Gm/Ns 200 Ml) 1 gm in 200 mls @ 166.7 mls/hr IVPB Q24H [facility] Stop: 04/11/17 10:01 Last Admin: 04/06/17 10:15 Dose: 166.7 mls/hr Cefepime HCl (Maxipime Iv 1 Gm Premix) 1 gm in 50 mls @ 100 mls/hr IVPB Q12H [facility] Last Admin: 04/06/17 12:00 Dose: 100 mls/hr Lactated Ringer's (Lactated Ringer's) 1,000 mls @ 105 mls/hr IV .[id number] [facility] Last Admin: 04/06/17 17:09 Dose: 105 mls/hr Insulin Human Regular (Novolin R) 0 unit SC Q6 DANNA PRN Reason: Protocol Last Admin: 04/06/17 12:00 Dose: Not Given Ondansetron HCl (Zofran Odt) 8 mg PO Q8H PRN PRN Reason: Nausea/Vomiting Pantoprazole Sodium (Protonix Ec Tab) 40 mg PO DAILY [facility] Last Admin: 04/06/17 10:16 Dose: 40 mg Saccharomyces Boulardii (Florastor) 250 mg PO DAILY [facility] Last Admin: 04/06/17 10:16 Dose: 250 mg Physical Exam - Constitutional Appears: Non-toxic, Chronically Ill - Head Exam Head Exam: NORMOCEPHALIC - Eye Exam Eye Exam: PERRL - ENT Exam ENT Exam: Mucous Membranes Dry - Neck Exam Neck exam: Negative for: Lymphadenopathy - Respiratory Exam Respiratory Exam: Decreased Breath Sounds - Cardiovascular Exam Cardiovascular Exam: REGULAR RHYTHM - GI/Abdominal Exam GI & Abdominal Exam: Diminished Bowel Sounds - Rectal Exam Rectal Exam: Deferred - Exam Exam: NORMAL INSPECTION - Extremities Exam Extremities exam: Negative for: pedal edema - Back Exam Back exam: absent: CVA tenderness (L), CVA tenderness (R) - Neurological Exam Neurological exam: Alert, CN II-XII Intact, Oriented x3, Reflexes Normal - Psychiatric Exam Psychiatric exam: Depressed - Skin Skin Exam: Dry Results - Vital Signs Recent Vital Signs: Last Vital Signs Temp 98.1 F 04/06/17 17:30 Pulse 91 H 04/06/17 17:30 Resp 18 04/06/17 17:30 BP 84/44 L 04/06/17 17:30 Pulse Ox 100 04/06/17 17:00 - Labs Result Diagrams: 04/06/17 12:43 04/06/17 06:15 Labs: Laboratory Results - last 24 hr 04/05/17 04/05/17 04/05/17 18:02 18:02 18:07 WBC 17.2 H D RBC 3.51 L Hgb 7.4 L Hct 24.7 L MCV 70.3 L D MCH 21.1 L MCHC 30.0 L RDW 17.5 H Plt Count 492 H D MPV 7.4 Neut % (Auto) 88.3 H Lymph % (Auto) 6.0 L [place] % (Auto) 4.2 Eos % (Auto) 1.0 Baso % (Auto) 0.5 Neut # 15.2 H Lymph # 1.0 [place] # 0.7 Eos # 0.2 Baso # 0.1 Neutrophils % (Manual) 88 H Band Neutrophils % 2 Lymphocytes % (Manual) 4 L Monocytes % (Manual) 6 Platelet Estimate Normal Polychromasia Hypochromasia (manual) Moderate Poikilocytosis (manual Moderate Anisocytosis (manual) Moderate Microcytosis (manual) Slight Macrocytosis (manual) Slight Target Cells Slight Tear Drop Cells Slight Ovalocytes Slight [place] Cells Slight PT INR APTT Fibrinogen Sodium 131 L Potassium 4.1 Chloride 101 Carbon Dioxide 23 Anion Gap 11 BUN 16 Creatinine 0.5 L Est GFR ( Amer) > 60 Est GFR (Non-Af Amer) > 60 POC Glucose (mg/dL) 245 H Random Glucose 205 H Hemoglobin A1c Lactic Acid Calcium 7.5 L Phosphorus Magnesium Iron TIBC % Saturation Total Bilirubin 0.4 AST 25 ALT 26 Alkaline Phosphatase 82 Total Protein 6.1 L Albumin 2.5 L Globulin 3.6 Albumin/Globulin Ratio 0.7 L Urine Color Urine Clarity Urine pH Ur Specific [place] Urine Protein Urine Glucose (UA) Urine Ketones Urine Blood Urine Nitrate Urine Bilirubin Urine Urobilinogen Ur Leukocyte Esterase Urine WBC (Auto) Urine RBC (Auto) Ur Squamous Epith Cells Blood Type Antibody Screen Antibody Identification Crossmatch Enhanced Crossmatch 04/05/17 04/06/17 04/06/17 20:50 01:00 01:26 WBC 13.4 H RBC 2.28 L Hgb 6.2 L* Hct 19.4 L MCV 85.0 D MCH 27.2 MCHC 32.0 L RDW 16.0 H Plt Count 160 D MPV 7.9 Neut % (Auto) 83.8 H Lymph % (Auto) 12.5 L [place] % (Auto) 3.4 Eos % (Auto) 0.1 Baso % (Auto) 0.2 Neut # 11.2 H Lymph # 1.7 [place] # 0.4 Eos # 0.0 Baso # 0.0 Neutrophils % (Manual) Band Neutrophils % Lymphocytes % (Manual) Monocytes % (Manual) Platelet Estimate Polychromasia Hypochromasia (manual) Poikilocytosis (manual Anisocytosis (manual) Microcytosis (manual) Macrocytosis (manual) Target Cells Tear Drop Cells Ovalocytes [place] Cells PT INR APTT Fibrinogen Sodium Potassium Chloride Carbon Dioxide Anion Gap BUN Creatinine Est GFR ( Amer) Est GFR (Non-Af Amer) POC Glucose (mg/dL) Random Glucose Hemoglobin A1c Lactic Acid Calcium Phosphorus Magnesium Iron TIBC % Saturation Total Bilirubin AST ALT Alkaline Phosphatase Total Protein Albumin Globulin Albumin/Globulin Ratio Urine Color Urine Clarity Urine pH Ur Specific [place] Urine Protein Urine Glucose (UA) Urine Ketones Urine Blood Urine Nitrate Urine Bilirubin Urine Urobilinogen Ur Leukocyte Esterase Urine WBC (Auto) Urine RBC (Auto) Ur Squamous Epith Cells Blood Type B POSITIVE B POSITIVE Antibody Screen Positive Positive Antibody Identification Anti C Anti C Crossmatch See Detail Enhanced Crossmatch See Detail 04/06/17 04/06/17 04/06/17 05:55 06:15 06:15 WBC RBC Hgb Hct MCV MCH MCHC RDW Plt Count MPV Neut % (Auto) Lymph % (Auto) [place] % (Auto) Eos % (Auto) Baso % (Auto) Neut # Lymph # [place] # Eos # Baso # Neutrophils % (Manual) Band Neutrophils % Lymphocytes % (Manual) Monocytes % (Manual) Platelet Estimate Polychromasia Hypochromasia (manual) Poikilocytosis (manual Anisocytosis (manual) Microcytosis (manual) Macrocytosis (manual) Target Cells Tear Drop Cells Ovalocytes [place] Cells PT INR APTT Fibrinogen Sodium Potassium Chloride Carbon Dioxide Anion Gap BUN Creatinine Est GFR ( Amer) Est GFR (Non-Af Amer) POC Glucose (mg/dL) 180 H Random Glucose Hemoglobin A1c Lactic Acid Calcium Phosphorus Magnesium Iron 92 TIBC 168 L % Saturation 55 Total Bilirubin AST ALT Alkaline Phosphatase Total Protein Albumin Globulin Albumin/Globulin Ratio Urine Color Straw Urine Clarity Clear Urine pH 6.0 Ur Specific [place] 1.009 Urine Protein Negative Urine Glucose (UA) 2+ H Urine Ketones Negative Urine Blood Negative Urine Nitrate Negative Urine Bilirubin Negative Urine Urobilinogen Normal Ur Leukocyte Esterase Neg Urine WBC (Auto) < 1 Urine RBC (Auto) < 1 Ur Squamous Epith Cells < 1 Blood Type Antibody Screen Antibody Identification Crossmatch Enhanced Crossmatch 04/06/17 04/06/17 04/06/17 06:15 06:15 06:15 WBC 21.7 H D RBC 4.49 Hgb 12.7 D Hct 38.1 MCV 84.9 MCH 28.3 MCHC 33.3 RDW 15.4 H Plt Count 150 MPV 8.0 Neut % (Auto) 86.1 H Lymph % (Auto) 8.3 L [place] % (Auto) 5.6 Eos % (Auto) 0.0 Baso % (Auto) 0.0 Neut # 18.7 H Lymph # 1.8 [place] # 1.2 H Eos # 0.0 Baso # 0.0 Neutrophils % (Manual) 90 H Band Neutrophils % 7 H Lymphocytes % (Manual) 1 L Monocytes % (Manual) 2 Platelet Estimate Normal Polychromasia Slight Hypochromasia (manual) Poikilocytosis (manual Anisocytosis (manual) Slight Microcytosis (manual) Macrocytosis (manual) Target Cells Tear Drop Cells Ovalocytes Slight [place] Cells Slight PT INR APTT Fibrinogen Sodium 138 Potassium 3.9 Chloride 114 H Carbon Dioxide 15 L Anion Gap 12 BUN 14 Creatinine 0.4 L Est GFR ( Amer) > 60 Est GFR (Non-Af Amer) > 60 POC Glucose (mg/dL) Random Glucose 172 H Hemoglobin A1c 5.8 Lactic Acid Calcium 5.5 L* D Phosphorus 4.2 Magnesium 1.5 L Iron TIBC % Saturation Total Bilirubin 0.9 AST 25 ALT 31 Alkaline Phosphatase 37 L D Total Protein 4.0 L Albumin 1.4 L D Globulin 2.6 Albumin/Globulin Ratio 0.6 L Urine Color Urine Clarity Urine pH Ur Specific [place] Urine Protein Urine Glucose (UA) Urine Ketones Urine Blood Urine Nitrate Urine Bilirubin Urine Urobilinogen Ur Leukocyte Esterase Urine WBC (Auto) Urine RBC (Auto) Ur Squamous Epith Cells Blood Type Antibody Screen Antibody Identification Crossmatch Enhanced Crossmatch 04/06/17 04/06/17 04/06/17 06:15 11:53 12:43 WBC 12.2 H RBC 2.63 L Hgb 7.4 L D Hct 21.8 L MCV 82.7 D MCH 28.1 MCHC 34.0 RDW 15.1 H Plt Count 107 L D MPV 7.9 Neut % (Auto) Lymph % (Auto) [place] % (Auto) Eos % (Auto) Baso % (Auto) Neut # Lymph # [place] # Eos # Baso # Neutrophils % (Manual) Band Neutrophils % Lymphocytes % (Manual) Monocytes % (Manual) Platelet Estimate Polychromasia Hypochromasia (manual) Poikilocytosis (manual Anisocytosis (manual) Microcytosis (manual) Macrocytosis (manual) Target Cells Tear Drop Cells Ovalocytes [place] Cells PT 14.4 H INR 1.3 APTT 28 Fibrinogen Sodium Potassium Chloride Carbon Dioxide Anion Gap BUN Creatinine Est GFR ( Amer) Est GFR (Non-Af Amer) POC Glucose (mg/dL) 111 H Random Glucose Hemoglobin A1c Lactic Acid Calcium Phosphorus Magnesium Iron TIBC % Saturation Total Bilirubin AST ALT Alkaline Phosphatase Total Protein Albumin Globulin Albumin/Globulin Ratio Urine Color Urine Clarity Urine pH Ur Specific [place] Urine Protein Urine Glucose (UA) Urine Ketones Urine Blood Urine Nitrate Urine Bilirubin Urine Urobilinogen Ur Leukocyte Esterase Urine WBC (Auto) Urine RBC (Auto) Ur Squamous Epith Cells Blood Type Antibody Screen Antibody Identification Crossmatch Enhanced Crossmatch 04/06/17 04/06/17 04/06/17 12:43 12:43 17:40 WBC RBC Hgb Hct MCV MCH MCHC RDW Plt Count MPV Neut % (Auto) Lymph % (Auto) [place] % (Auto) Eos % (Auto) Baso % (Auto) Neut # Lymph # [place] # Eos # Baso # Neutrophils % (Manual) Band Neutrophils % Lymphocytes % (Manual) Monocytes % (Manual) Platelet Estimate Polychromasia Hypochromasia (manual) Poikilocytosis (manual Anisocytosis (manual) Microcytosis (manual) Macrocytosis (manual) Target Cells Tear Drop Cells Ovalocytes [place] Cells PT INR APTT Fibrinogen 190 L Sodium Potassium Chloride Carbon Dioxide Anion Gap BUN Creatinine Est GFR ( Amer) Est GFR (Non-Af Amer) POC Glucose (mg/dL) 149 H Random Glucose Hemoglobin A1c Lactic Acid 0.9 Calcium Phosphorus Magnesium Iron TIBC % Saturation Total Bilirubin AST ALT Alkaline Phosphatase Total Protein Albumin Globulin Albumin/Globulin Ratio Urine Color Urine Clarity Urine pH Ur Specific [place] Urine Protein Urine Glucose (UA) Urine Ketones Urine Blood Urine Nitrate Urine Bilirubin Urine Urobilinogen Ur Leukocyte Esterase Urine WBC (Auto) Urine RBC (Auto) Ur Squamous Epith Cells Blood Type Antibody Screen Antibody Identification Crossmatch Enhanced Crossmatch Assessment & Plan (1) Bleeding from breast Status: Acute (2) Breast cancer Status: Acute - Assessment and Plan (Free Text) Assessment: hx of previously infected breast mass cultures sent IV rx in progress
--- NOTE | 2017-04-06 22:20 | CARD ---
APPROVED REPORT EKG Measurement Heart [id number] <Conclusion> Sinus tachycardia Nonspecific T wave abnormality, Abnormal ECG
[2017-04-06 22:22] LABS: BASO % 0.2 % (0.0-2.0); LYMPH # 1.4 K/uL (1.0-4.3); MEAN CORPUSCULAR HEMOGLOBIN 29.8 pg (27.0-31.0); MEAN CORPUSCULAR HGB CONC 34.4 g/dL (33.0-37.0); MEAN PLATELET VOLUME 7.3 fL (7.2-11.7); MONO # 0.6 K/uL (0.0-0.8); MONO % 4.4 % (0.0-10.0); NRBC % 0.1 % (0.0-2.0); RED CELL DISTRIBUTION WIDTH 16.2 % (11.5-14.5); WHITE BLOOD COUNT 13.7 K/uL (4.8-10.8)
[2017-04-06 22:39] LABS: MEAN CELL VOLUME 86.6 fL (81.0-99.0)
[2017-04-07] MEDS: Lactated Ringer's 1,000 ML IV SCH ×3 (03:00→21:27)
[2017-04-07] MEDS: (Novolin R) Insulin Human Regular 100 units/ml vial SC SCH ×3 (06:35→18:51)
[2017-04-07 06:59] LABS: BASO % 0.1 % (0.0-2.0); HEMATOCRIT 31.1 % (34.0-47.0); LYMPH # 1.6 K/uL (1.0-4.3); LYMPH % 13.1 % (20.0-40.0); MEAN CELL VOLUME 86.8 fL (81.0-99.0); MEAN CORPUSCULAR HEMOGLOBIN 30.2 pg (27.0-31.0); MEAN CORPUSCULAR HGB CONC 34.8 g/dL (33.0-37.0); MEAN PLATELET VOLUME 7.9 fL (7.2-11.7); MONO # 0.8 K/uL (0.0-0.8); MONO % 6.5 % (0.0-10.0); NRBC % 0.1 % (0.0-2.0); RED CELL DISTRIBUTION WIDTH 16.8 % (11.5-14.5); WHITE BLOOD COUNT 12.1 K/uL (4.8-10.8)
[2017-04-07 07:23] LABS: ALB/GLOB RATIO 0.8 (1.0-2.1); ALKALINE PHOSPHATASE 50 U/L (38-126); ALT/SGPT 25 U/L (9-52); AST/SGOT 29 U/L (14-36); BILIRUBIN,TOTAL 1.2 mg/dL (0.2-1.3); BLOOD UREA NITROGEN 10 mg/dL (7-17); CALCIUM 7.2 mg/dl (8.6-10.4); CARBON DIOXIDE 21 mmol/L (22-30); CHLORIDE 109 mmol/L (98-107); GFR AFRICAN-AMERICAN > 60; GLUCOSE,RANDOM 83 mg/dL (65-105); MAGNESIUM 1.9 mg/dL (1.6-2.3); PHOSPHOROUS 2.4 mg/dL (2.5-4.5); POTASSIUM 3.6 mmol/L (3.6-5.2); SODIUM 134 mmol/L (132-148); TOTAL PROTEIN 4.2 g/dL (6.3-8.3)
--- NOTE | 2017-04-07 08:37 | CP.CCUPN ---
CCU Subjective - Physician Review Subjective (Free Text): Patient seen and examined at bedside. Patient still has pain from left breast mass and bleeding. Patient to go for IR embolization this morning. CCU Objective - Vital Signs / Intake & Output Vital Signs (Last 4 hours): Vital Signs Pulse Resp BP Pulse Ox 04/07/17 06:00 88 11 L 100 04/07/17 05:51 88 13 96/51 L 04/07/17 05:00 82 14 100 04/07/17 04:51 74 12 103/57 L Intake and Output (Last 8hrs): Intake & Output 04/06/17 04/07/17 04/07/17 22:59 06:59 14:59 Intake Total 2290 840 Output Total 565 580 Balance 1725 260 Weight 93 lb Intake: Intake, IV Amount 1715 840 Left Femoral 1715 840 Oral 150 Blood Product 325 Apheresis Rbc Cp2d As3 Lr 325 2nd Unit [id number] Red Blood Cells Cpd As1 0 Lr Unit [id number] Other 100 Apheresis Rbc Cp2d As3 Lr 100 2nd Unit [id number] Output: Urine 565 580 Urethral (Landry) 565 580 Other: # Bowel Movements 1 - Physical Exam Head: Positive for: Atraumatic, Normocephalic Respiratory/Chest: Positive for: Clear to Auscultation, Good Air Exchange Cardiovascular: Positive for: Regular Rate and Rhythm Abdomen: Positive for: Normal Bowel Sounds. Negative for: Tenderness, Distention Breast/Axillary: Positive for: Other (left breast mass bleeding through dressing ) Upper Extremity: Positive for: Other (atrophy, poor pulses b/l radial and DP/PT) Skin: Positive for: Warm - Medications Active Medications: Active Medications Generic Name Dose Route Start Last Admin Trade Name Freq PRN Reason Stop Dose Admin Acetaminophen 325 mg 04/05/17 19:34 Tylenol 325mg Tab PO Q4 PRN pain Ferrous Sulfate 325 mg 04/06/17 10:00 04/06/17 18:11 Feosol PO Not Given BID DANNA Vancomycin/Sodium Chloride 1 gm in 200 mls @ 166.7 mls/hr 04/06/17 10:00 10:15 Vancomycin 1 Gm/Ns 200 Ml IVPB 04/11/17 10:01 166.7 mls/hr Q24H DANNA Administration Cefepime HCl 1 gm in 50 mls @ 100 mls/hr 04/06/17 12:00 04/06/17 23:16 Maxipime Iv 1 Gm Premix IVPB 100 mls/hr Q12H DANNA Administration Lactated Ringer's 1,000 mls @ 105 mls/hr 04/06/17 16:30 04/07/17 03:00 Lactated Ringer's IV 105 mls/hr .[id number] DANNA Administration Insulin Human Regular 0 unit 04/06/17 06:00 04/07/17 06:35 Novolin R SC Not Given Q6 [facility] Protocol Ondansetron HCl 8 mg 04/05/17 19:34 Zofran Odt PO Q8H PRN Nausea/Vomiting Pantoprazole Sodium 40 mg 04/06/17 10:00 04/06/17 10:16 Protonix Ec Tab PO 40 mg DAILY DANNA Administration Potassium Phos/Sodium Phos 1 pkt 04/07/17 08:00 Neutra-Phos PO BIDCC [facility] Saccharomyces Boulardii 250 mg 04/06/17 10:00 04/06/17 10:16 Florastor PO 250 mg DAILY DANNA Administration - Patient Studies Lab Studies: Microbiology Studies 04/06/17 00:30 Blood Culture - Preliminary Blood NO GROWTH AFTER 24 HOURS 04/06/17 00:30 Blood Culture - Preliminary Blood NO GROWTH AFTER 24 HOURS Lab Studies 04/07/17 04/07/17 04/07/17 Range/Units 06:44 06:44 06:44 WBC 12.1 H (4.8-10.8) K/uL RBC 3.58 L (3.80-5.20) Mil/uL Hgb 10.8 L (11.0-16.0) g/dL Hct 31.1 L (34.0-47.0) % MCV 86.8 (81.0-99.0) fL MCH 30.2 (27.0-31.0) pg MCHC 34.8 (33.0-37.0) g/dL RDW 16.8 H (11.5-14.5) % Plt Count 131 (130-400) K/uL MPV 7.9 (7.2-11.7) fL Neut % (Auto) 80.3 H (50.0-75.0) % Lymph % (Auto) 13.1 L (20.0-40.0) % [place] % (Auto) 6.5 (0.0-10.0) % Eos % (Auto) 0.0 (0.0-4.0) % Baso % (Auto) 0.1 (0.0-2.0) % Neut # 9.7 H (1.8-7.0) K/uL Lymph # 1.6 (1.0-4.3) K/uL [place] # 0.8 (0.0-0.8) K/uL Eos # 0.0 (0.0-0.7) K/uL Baso # 0.0 (0.0-0.2) K/uL PT 11.4 (9.7-12.2) SECONDS INR 1.0 APTT 24 (21-34) SECONDS Fibrinogen 191 L (200-400) mg/dL Sodium 134 (132-148) mmol/L Potassium 3.6 (3.6-5.2) mmol/L Chloride 109 H (98-107) mmol/L Carbon Dioxide 21 L (22-30) mmol/L Anion Gap 8 L (10-20) BUN 10 (7-17) mg/dL Creatinine 0.3 L (0.7-1.2) mg/dL Est GFR ( Amer) > 60 Est GFR (Non-Af Amer) > 60 POC Glucose (mg/dL) (65-110) mg/dL Random Glucose 83 (65-105) mg/dL Hemoglobin A1c (4.2-6.5) % Lactic Acid (0.7-2.1) mmol/L Calcium 7.2 L (8.6-10.4) mg/dl Phosphorus 2.4 L (2.5-4.5) mg/dL Magnesium 1.9 (1.6-2.3) mg/dL Total Bilirubin 1.2 (0.2-1.3) mg/dL AST 29 (14-36) U/L ALT 25 (9-52) U/L Alkaline Phosphatase 50 (38-126) U/L Total Protein 4.2 L (6.3-8.3) g/dL Albumin 1.9 L D (3.5-5.0) g/dL Globulin 2.3 (2.2-3.9) gm/dL Albumin/Globulin Ratio 0.8 L (1.0-2.1) Blood Type Antibody Screen Antibody Identification Crossmatch Enhanced Crossmatch 04/07/17 04/06/17 04/06/17 Range/Units 05:50 23:38 23:38 WBC (4.8-10.8) K/uL RBC (3.80-5.20) Mil/uL Hgb (11.0-16.0) g/dL Hct (34.0-47.0) % MCV (81.0-99.0) fL MCH (27.0-31.0) pg MCHC (33.0-37.0) g/dL RDW (11.5-14.5) % Plt Count (130-400) K/uL MPV (7.2-11.7) fL Neut % (Auto) (50.0-75.0) % Lymph % (Auto) (20.0-40.0) % [place] % (Auto) (0.0-10.0) % Eos % (Auto) (0.0-4.0) % Baso % (Auto) (0.0-2.0) % Neut # (1.8-7.0) K/uL Lymph # (1.0-4.3) K/uL [place] # (0.0-0.8) K/uL Eos # (0.0-0.7) K/uL Baso # (0.0-0.2) K/uL PT (9.7-12.2) SECONDS INR APTT (21-34) SECONDS Fibrinogen (200-400) mg/dL Sodium (132-148) mmol/L Potassium (3.6-5.2) mmol/L Chloride (98-107) mmol/L Carbon Dioxide (22-30) mmol/L Anion Gap (10-20) BUN (7-17) mg/dL Creatinine (0.7-1.2) mg/dL Est GFR ( Amer) Est GFR (Non-Af Amer) POC Glucose (mg/dL) 90 170 H 170 H (65-110) mg/dL Random Glucose (65-105) mg/dL Hemoglobin A1c (4.2-6.5) % Lactic Acid (0.7-2.1) mmol/L Calcium (8.6-10.4) mg/dl Phosphorus (2.5-4.5) mg/dL Magnesium (1.6-2.3) mg/dL Total Bilirubin (0.2-1.3) mg/dL AST (14-36) U/L ALT (9-52) U/L Alkaline Phosphatase (38-126) U/L Total Protein (6.3-8.3) g/dL Albumin (3.5-5.0) g/dL Globulin (2.2-3.9) gm/dL Albumin/Globulin Ratio (1.0-2.1) Blood Type Antibody Screen Antibody Identification Crossmatch Enhanced Crossmatch 04/06/17 04/06/17 04/06/17 Range/Units 22:19 17:40 12:43 WBC 13.7 H (4.8-10.8) K/uL RBC 3.35 L (3.80-5.20) Mil/uL Hgb 10.0 L D (11.0-16.0) g/dL Hct 29.0 L (34.0-47.0) % MCV 86.6 D (81.0-99.0) fL MCH 29.8 (27.0-31.0) pg MCHC 34.4 (33.0-37.0) g/dL RDW 16.2 H (11.5-14.5) % Plt Count 110 L (130-400) K/uL MPV 7.3 (7.2-11.7) fL Neut % (Auto) 85.4 H (50.0-75.0) % Lymph % (Auto) 10.0 L (20.0-40.0) % [place] % (Auto) 4.4 (0.0-10.0) % Eos % (Auto) 0.0 (0.0-4.0) % Baso % (Auto) 0.2 (0.0-2.0) % Neut # 11.7 H (1.8-7.0) K/uL Lymph # 1.4 (1.0-4.3) K/uL [place] # 0.6 (0.0-0.8) K/uL Eos # 0.0 (0.0-0.7) K/uL Baso # 0.0 (0.0-0.2) K/uL PT (9.7-12.2) SECONDS INR APTT (21-34) SECONDS Fibrinogen (200-400) mg/dL Sodium (132-148) mmol/L Potassium (3.6-5.2) mmol/L Chloride (98-107) mmol/L Carbon Dioxide (22-30) mmol/L Anion Gap (10-20) BUN (7-17) mg/dL Creatinine (0.7-1.2) mg/dL Est GFR ( Amer) Est GFR (Non-Af Amer) POC Glucose (mg/dL) 149 H (65-110) mg/dL Random Glucose (65-105) mg/dL Hemoglobin A1c (4.2-6.5) % Lactic Acid 0.9 (0.7-2.1) mmol/L Calcium (8.6-10.4) mg/dl Phosphorus (2.5-4.5) mg/dL Magnesium (1.6-2.3) mg/dL Total Bilirubin (0.2-1.3) mg/dL AST (14-36) U/L ALT (9-52) U/L Alkaline Phosphatase (38-126) U/L Total Protein (6.3-8.3) g/dL Albumin (3.5-5.0) g/dL Globulin (2.2-3.9) gm/dL Albumin/Globulin Ratio (1.0-2.1) Blood Type Antibody Screen Antibody Identification Crossmatch Enhanced Crossmatch 04/06/17 04/06/17 04/06/17 Range/Units 12:43 12:43 11:53 WBC 12.2 H (4.8-10.8) K/uL RBC 2.63 L (3.80-5.20) Mil/uL Hgb 7.4 L D (11.0-16.0) g/dL Hct 21.8 L (34.0-47.0) % MCV 82.7 D (81.0-99.0) fL MCH 28.1 (27.0-31.0) pg MCHC 34.0 (33.0-37.0) g/dL RDW 15.1 H (11.5-14.5) % Plt Count 107 L D (130-400) K/uL MPV 7.9 (7.2-11.7) fL Neut % (Auto) (50.0-75.0) % Lymph % (Auto) (20.0-40.0) % [place] % (Auto) (0.0-10.0) % Eos % (Auto) (0.0-4.0) % Baso % (Auto) (0.0-2.0) % Neut # (1.8-7.0) K/uL Lymph # (1.0-4.3) K/uL [place] # (0.0-0.8) K/uL Eos # (0.0-0.7) K/uL Baso # (0.0-0.2) K/uL PT (9.7-12.2) SECONDS INR APTT (21-34) SECONDS Fibrinogen 190 L (200-400) mg/dL Sodium (132-148) mmol/L Potassium (3.6-5.2) mmol/L Chloride (98-107) mmol/L Carbon Dioxide (22-30) mmol/L Anion Gap (10-20) BUN (7-17) mg/dL Creatinine (0.7-1.2) mg/dL Est GFR ( Amer) Est GFR (Non-Af Amer) POC Glucose (mg/dL) 111 H (65-110) mg/dL Random Glucose (65-105) mg/dL Hemoglobin A1c (4.2-6.5) % Lactic Acid (0.7-2.1) mmol/L Calcium (8.6-10.4) mg/dl Phosphorus (2.5-4.5) mg/dL Magnesium (1.6-2.3) mg/dL Total Bilirubin (0.2-1.3) mg/dL AST (14-36) U/L ALT (9-52) U/L Alkaline Phosphatase (38-126) U/L Total Protein (6.3-8.3) g/dL Albumin (3.5-5.0) g/dL Globulin (2.2-3.9) gm/dL Albumin/Globulin Ratio (1.0-2.1) Blood Type Antibody Screen Antibody Identification Crossmatch Enhanced Crossmatch 04/06/17 04/06/17 04/05/17 Range/Units 06:15 01:00 20:50 WBC (4.8-10.8) K/uL RBC (3.80-5.20) Mil/uL Hgb (11.0-16.0) g/dL Hct (34.0-47.0) % MCV (81.0-99.0) fL MCH (27.0-31.0) pg MCHC (33.0-37.0) g/dL RDW (11.5-14.5) % Plt Count (130-400) K/uL MPV (7.2-11.7) fL Neut % (Auto) (50.0-75.0) % Lymph % (Auto) (20.0-40.0) % [place] % (Auto) (0.0-10.0) % Eos % (Auto) (0.0-4.0) % Baso % (Auto) (0.0-2.0) % Neut # (1.8-7.0) K/uL Lymph # (1.0-4.3) K/uL [place] # (0.0-0.8) K/uL Eos # (0.0-0.7) K/uL Baso # (0.0-0.2) K/uL PT (9.7-12.2) SECONDS INR APTT (21-34) SECONDS Fibrinogen (200-400) mg/dL Sodium (132-148) mmol/L Potassium (3.6-5.2) mmol/L Chloride (98-107) mmol/L Carbon Dioxide (22-30) mmol/L Anion Gap (10-20) BUN (7-17) mg/dL Creatinine (0.7-1.2) mg/dL Est GFR ( Amer) Est GFR (Non-Af Amer) POC Glucose (mg/dL) (65-110) mg/dL Random Glucose (65-105) mg/dL Hemoglobin A1c 5.8 (4.2-6.5) % Lactic Acid (0.7-2.1) mmol/L Calcium (8.6-10.4) mg/dl Phosphorus (2.5-4.5) mg/dL Magnesium (1.6-2.3) mg/dL Total Bilirubin (0.2-1.3) mg/dL AST (14-36) U/L ALT (9-52) U/L Alkaline Phosphatase (38-126) U/L Total Protein (6.3-8.3) g/dL Albumin (3.5-5.0) g/dL Globulin (2.2-3.9) gm/dL Albumin/Globulin Ratio (1.0-2.1) Blood Type B POSITIVE Antibody Screen Positive Antibody Identification Anti C Crossmatch See Detail Enhanced Crossmatch See Detail Laboratory Results - last 24 hr 04/05/17 04/06/17 04/06/17 20:50 01:00 06:15 WBC RBC Hgb Hct MCV MCH MCHC RDW Plt Count MPV Neut % (Auto) Lymph % (Auto) [place] % (Auto) Eos % (Auto) Baso % (Auto) Neut # Lymph # [place] # Eos # Baso # PT INR APTT Fibrinogen Sodium Potassium Chloride Carbon Dioxide Anion Gap BUN Creatinine Est GFR ( Amer) Est GFR (Non-Af Amer) POC Glucose (mg/dL) Random Glucose Hemoglobin A1c 5.8 Lactic Acid Calcium Phosphorus Magnesium Total Bilirubin AST ALT Alkaline Phosphatase Total Protein Albumin Globulin Albumin/Globulin Ratio Blood Type B POSITIVE Antibody Screen Positive Antibody Identification Anti C Crossmatch See Detail Enhanced Crossmatch See Detail 04/06/17 04/06/17 04/06/17 11:53 12:43 12:43 WBC 12.2 H RBC 2.63 L Hgb 7.4 L D Hct 21.8 L MCV 82.7 D MCH 28.1 MCHC 34.0 RDW 15.1 H Plt Count 107 L D MPV 7.9 Neut % (Auto) Lymph % (Auto) [place] % (Auto) Eos % (Auto) Baso % (Auto) Neut # Lymph # [place] # Eos # Baso # PT INR APTT Fibrinogen 190 L Sodium Potassium Chloride Carbon Dioxide Anion Gap BUN Creatinine Est GFR ( Amer) Est GFR (Non-Af Amer) POC Glucose (mg/dL) 111 H Random Glucose Hemoglobin A1c Lactic Acid Calcium Phosphorus Magnesium Total Bilirubin AST ALT Alkaline Phosphatase Total Protein Albumin Globulin Albumin/Globulin Ratio Blood Type Antibody Screen Antibody Identification Crossmatch Enhanced Crossmatch 04/06/17 04/06/17 04/06/17 12:43 17:40 22:19 WBC 13.7 H RBC 3.35 L Hgb 10.0 L D Hct 29.0 L MCV 86.6 D MCH 29.8 MCHC 34.4 RDW 16.2 H Plt Count 110 L MPV 7.3 Neut % (Auto) 85.4 H Lymph % (Auto) 10.0 L [place] % (Auto) 4.4 Eos % (Auto) 0.0 Baso % (Auto) 0.2 Neut # 11.7 H Lymph # 1.4 [place] # 0.6 Eos # 0.0 Baso # 0.0 PT INR APTT Fibrinogen Sodium Potassium Chloride Carbon Dioxide Anion Gap BUN Creatinine Est GFR ( Amer) Est GFR (Non-Af Amer) POC Glucose (mg/dL) 149 H Random Glucose Hemoglobin A1c Lactic Acid 0.9 Calcium Phosphorus Magnesium Total Bilirubin AST ALT Alkaline Phosphatase Total Protein Albumin Globulin Albumin/Globulin Ratio Blood Type Antibody Screen Antibody Identification Crossmatch Enhanced Crossmatch 04/06/17 04/06/17 04/07/17 23:38 23:38 05:50 WBC RBC Hgb Hct MCV MCH MCHC RDW Plt Count MPV Neut % (Auto) Lymph % (Auto) [place] % (Auto) Eos % (Auto) Baso % (Auto) Neut # Lymph # [place] # Eos # Baso # PT INR APTT Fibrinogen Sodium Potassium Chloride Carbon Dioxide Anion Gap BUN Creatinine Est GFR ( Amer) Est GFR (Non-Af Amer) POC Glucose (mg/dL) 170 H 170 H 90 Random Glucose Hemoglobin A1c Lactic Acid Calcium Phosphorus Magnesium Total Bilirubin AST ALT Alkaline Phosphatase Total Protein Albumin Globulin Albumin/Globulin Ratio Blood Type Antibody Screen Antibody Identification Crossmatch Enhanced Crossmatch 04/07/17 04/07/17 04/07/17 06:44 06:44 06:44 WBC 12.1 H RBC 3.58 L Hgb 10.8 L Hct 31.1 L MCV 86.8 MCH 30.2 MCHC 34.8 RDW 16.8 H Plt Count 131 MPV 7.9 Neut % (Auto) 80.3 H Lymph % (Auto) 13.1 L [place] % (Auto) 6.5 Eos % (Auto) 0.0 Baso % (Auto) 0.1 Neut # 9.7 H Lymph # 1.6 [place] # 0.8 Eos # 0.0 Baso # 0.0 PT 11.4 INR 1.0 APTT 24 Fibrinogen 191 L Sodium 134 Potassium 3.6 Chloride 109 H Carbon Dioxide 21 L Anion Gap 8 L BUN 10 Creatinine 0.3 L Est GFR ( Amer) > 60 Est GFR (Non-Af Amer) > 60 POC Glucose (mg/dL) Random Glucose 83 Hemoglobin A1c Lactic Acid Calcium 7.2 L Phosphorus 2.4 L Magnesium 1.9 Total Bilirubin 1.2 AST 29 ALT 25 Alkaline Phosphatase 50 Total Protein 4.2 L Albumin 1.9 L D Globulin 2.3 Albumin/Globulin Ratio 0.8 L Blood Type Antibody Screen Antibody Identification Crossmatch Enhanced Crossmatch Fingerstick Blood Sugar Results: 180 Critical Care Progress Note - Nutrition Nutrition: Nutrition Category Date Time Status NPO Diet [DIET] Diets 04/07/17 Breakfast Active Assessment/Plan - Assessment and Plan (Free Text) Assessment: 51F with 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 Neuro: patient reluctant to accept any treatment Endo: ISS Heme: monitor H/H will transfuse as needed Skin: left breast mass ID: [id number] 1gm q24h
[2017-04-07] MEDS ORDERED: Ketamine 50 mg/ml Inj (10 ml) ONE (09:00)
[2017-04-07] MEDS ORDERED: Midazolam 2 MG/2 ML VIAL ONE ×2 (09:01→12:36)
[2017-04-07] MEDS ORDERED: Sodium Chloride 0.9% 1,000 ML IV ONE ×6 (09:56→22:40)
--- NOTE | 2017-04-07 10:04 | CP.PCM.PN ---
Subjective - Date & Time of Evaluation Date of Evaluation: 04/07/17 Time of Evaluation: 10:04 - Subjective Subjective: Patient came from [facility] tchycardia, hr 160s, left shoulder bleeding shawn blood. Massive transfusion protocol initiated (4 units blood, 4 units ffp and 2 units of platelets). Patient is having brisk bleeding from suspected vasular source, axillary branch. Will attempt to contact any surgeon for assistance. Objective - Vital Signs/Intake and Output Vital Signs (last 24 hours): Temp Pulse Resp BP Pulse Ox 98.1 F 73 11 L 99/51 L 100 04/07/17 04:00 04/07/17 08:00 04/07/17 08:00 04/07/17 07:51 04/07/17 08:00 Intake and Output: 04/07/17 04/07/17 06:59 18:59 Intake Total 1405 105 Output Total 1000 120 Balance 405 -15 - Medications Medications: Current Medications Acetaminophen (Tylenol 325mg Tab) 325 mg PO Q4 PRN PRN Reason: pain Ferrous Sulfate (Feosol) 325 mg PO BID [facility] Last Admin: 04/06/17 18:11 Dose: Not Given Vancomycin/Sodium Chloride (Vancomycin 1 Gm/Ns 200 Ml) 1 gm in 200 mls @ 166.7 mls/hr IVPB Q24H [facility] Stop: 04/11/17 10:01 Last Admin: 04/06/17 10:15 Dose: 166.7 mls/hr Cefepime HCl (Maxipime Iv 1 Gm Premix) 1 gm in 50 mls @ 100 mls/hr IVPB Q12H [facility] Last Admin: 04/06/17 23:16 Dose: 100 mls/hr Lactated Ringer's (Lactated Ringer's) 1,000 mls @ 105 mls/hr IV .[id number] [facility] Last Admin: 04/07/17 03:00 Dose: 105 mls/hr Norepinephrine Bitartrate 4 mg (/ Dextrose) 254 mls @ 15.24 mls/hr IV .[id number] PRN; Protocol; 4 MCG/MIN PRN Reason: TITRATE PER MD ORDER Sodium Chloride (Sodium Chloride 0.9%) 1,000 mls @ 1,000 mls/hr IV .Q1H ONE Stop: 04/07/17 10:55 Insulin Human Regular (Novolin R) 0 unit SC Q6 [facility] PRN Reason: Protocol Last Admin: 04/07/17 06:35 Dose: Not Given Ondansetron HCl (Zofran Odt) 8 mg PO Q8H PRN PRN Reason: Nausea/Vomiting Pantoprazole Sodium (Protonix Ec Tab) 40 mg PO DAILY [facility] Last Admin: 04/06/17 10:16 Dose: 40 mg Potassium Phos/Sodium Phos (Neutra-Phos) 1 pkt PO BIDCC [facility] Saccharomyces Boulardii (Florastor) 250 mg PO DAILY [facility] Last Admin: 04/06/17 10:16 Dose: 250 mg - Labs Labs: 04/07/17 06:44 04/07/17 06:44 PT 11.4 SECONDS (9.7-12.2) 04/07/17 06:44 INR 1.0 04/07/17 06:44 APTT 24 SECONDS (21-34) 04/07/17 06:44
[2017-04-07] MEDS ORDERED: Etomidate 20 mg/10ml Inj IV ONE ×2 (10:05→10:07)
[2017-04-07] MEDS ORDERED: Succinylcholine Chloride 20 mg/ml Syr (5 ml) IV ONE (10:05)
[2017-04-07] MEDS ORDERED: Phenylephrine 10 mg/ml Inj ONE (10:05)
[2017-04-07] MEDS ORDERED: ePHEDrine 50 mg/ml Inj ONE (10:05)
--- NOTE | 2017-04-07 12:35 | PCM.IRP ---
Chief Complaint: Extensive discussion was had with the patient and her son prior to the attempted embolization procedure with Dr. Scott from anesthesia present as well as full time staff interpreter. Patient and son are in agreement they would like to temporarily rescind DNR/DNI order for the procedure and post-procedure care. Code status is FULL CODE at the time of this progress note. DNR/DNI order to be reinstated after the procedure by the ICU team. Objective - Vital Signs/Intake and Output Vital Signs (last 24 hours): Vital Signs - 24 hr 04/06/17 04/06/17 04/06/17 13:00 13:42 13:45 Temperature 98.2 F 98.2 F 98.2 F Pulse Rate 102 H 102 H 110 H Respiratory 18 18 18 Rate Blood Pressure 128/57 L 113/53 L 113/53 L O2 Sat by Pulse 100 100 Oximetry 04/06/17 04/06/17 04/06/17 13:57 14:00 14:12 Temperature 98.3 F 98.3 F 98.1 F Pulse Rate 104 H 104 H 103 H Respiratory 18 20 18 Rate Blood Pressure 103/60 103/60 108/55 L O2 Sat by Pulse 100 Oximetry 04/06/17 04/06/17 04/06/17 14:15 14:42 15:00 Temperature 98.3 F 98.2 F 98.3 F Pulse Rate 108 H 101 H 98 H Respiratory 18 18 18 Rate Blood Pressure 97/48 L 98/55 L 102/55 L O2 Sat by Pulse 100 100 Oximetry 04/06/17 04/06/17 04/06/17 16:00 16:32 16:50 Temperature 98.2 F 98.1 F 98.2 F Pulse Rate 94 H 90 88 Respiratory 20 18 18 Rate Blood Pressure 80/40 L 86/42 L 86/42 L O2 Sat by Pulse 100 Oximetry 04/06/17 04/06/17 04/06/17 17:00 17:30 18:00 Temperature 98.3 F 98.1 F Pulse Rate 87 91 H 84 Respiratory 18 18 20 Rate Blood Pressure 86/42 L 84/44 L 101/46 L O2 Sat by Pulse 100 100 Oximetry 04/06/17 04/06/17 04/06/17 18:44 19:00 19:06 Temperature 97.6 F Pulse Rate 90 84 84 Respiratory 18 11 L 10 L Rate Blood Pressure 102/46 L 92/46 L 82/46 L O2 Sat by Pulse 100 100 Oximetry 04/06/17 04/06/17 04/06/17 19:32 19:34 19:36 Temperature Pulse Rate 82 80 82 Respiratory 10 L 11 L 10 L Rate Blood Pressure 82/46 L 82/46 L 82/43 L O2 Sat by Pulse 100 100 100 Oximetry 04/06/17 04/06/17 04/06/17 19:51 20:00 20:51 Temperature 97.8 F Pulse Rate 89 74 81 Respiratory 18 11 L 11 L Rate Blood Pressure 105/52 L 85/48 L O2 Sat by Pulse 95 100 100 Oximetry 04/06/17 04/06/17 04/06/17 21:00 21:51 22:00 Temperature Pulse Rate 82 92 H 102 H Respiratory 15 12 12 Rate Blood Pressure 99/57 L O2 Sat by Pulse 100 95 100 Oximetry 04/06/17 04/06/17 04/06/17 22:51 23:00 23:51 Temperature Pulse Rate 96 H 104 H 105 H Respiratory 13 15 13 Rate Blood Pressure 103/61 110/61 O2 Sat by Pulse 100 100 Oximetry 04/07/17 04/07/17 04/07/17 00:00 00:33 00:51 Temperature 98 F Pulse Rate 103 H 100 H 100 H Respiratory 14 13 12 Rate Blood Pressure 120/61 O2 Sat by Pulse 100 100 Oximetry 04/07/17 04/07/17 04/07/17 01:00 01:51 02:00 Temperature Pulse Rate 98 H 86 88 Respiratory 11 L 11 L 12 Rate Blood Pressure 106/52 L O2 Sat by Pulse 100 99 99 Oximetry 04/07/17 04/07/17 04/07/17 02:51 03:00 03:51 Temperature Pulse Rate 86 80 80 Respiratory 12 10 L 11 L Rate Blood Pressure 97/55 L 94/49 L O2 Sat by Pulse 100 99 Oximetry 04/07/17 04/07/17 04/07/17 04:00 04:51 05:00 Temperature 98.1 F Pulse Rate 81 74 82 Respiratory 11 L 12 14 Rate Blood Pressure 103/57 L O2 Sat by Pulse 99 100 Oximetry 04/07/17 04/07/17 04/07/17 05:51 06:00 06:51 Temperature Pulse Rate 88 88 84 Respiratory 13 11 L 14 Rate Blood Pressure 96/51 L 105/51 L O2 Sat by Pulse 100 100 Oximetry 04/07/17 04/07/17 04/07/17 07:00 07:51 08:00 Temperature Pulse Rate 79 82 73 Respiratory 12 13 11 L Rate Blood Pressure 99/51 L O2 Sat by Pulse 99 100 Oximetry 04/07/17 04/07/17 04/07/17 09:47 09:49 09:50 Temperature Pulse Rate 76 147 H 181 H Respiratory 13 18 17 Rate Blood Pressure 114/70 138/69 O2 Sat by Pulse 100 100 Oximetry 04/07/17 04/07/17 04/07/17 09:51 09:52 09:53 Temperature Pulse Rate 174 H 170 H 170 H Respiratory 16 14 16 Rate Blood Pressure 149/62 120/69 116/63 O2 Sat by Pulse 100 100 100 Oximetry 04/07/17 04/07/17 04/07/17 09:55 10:00 10:16 Temperature Pulse Rate 162 H 151 H 134 H Respiratory 17 14 13 Rate Blood Pressure 127/55 L 115/56 L O2 Sat by Pulse 100 100 100 Oximetry 04/07/17 04/07/17 04/07/17 10:24 10:30 10:39 Temperature Pulse Rate 118 H 115 H 113 H Respiratory 18 12 14 Rate Blood Pressure 124/61 129/68 141/57 L O2 Sat by Pulse 100 99 100 Oximetry 04/07/17 04/07/17 04/07/17 10:54 11:00 11:09 Temperature Pulse Rate 113 H 108 H 107 H Respiratory 17 14 13 Rate Blood Pressure 147/61 149/66 O2 Sat by Pulse 100 100 100 Oximetry Intake and Output (last 12 hours): Intake & Output 04/06/17 04/07/17 04/07/17 18:59 06:59 18:59 Intake Total 2575 1730 3807 Output Total 195 1000 450 Balance 2380 730 3357 Weight 93 lb Intake: Intake, IV Amount 2050 1255 3207 Left Distal Port 999 Left Femoral 2050 1255 210 Left Proximal Port 1998 Femoral Oral 100 150 0 Blood Product 325 325 600 Apheresis Rbc Cp2d As3 Lr 325 2nd Unit [id number] Red Blood Cells Cpd As1 325 Lr Unit [id number] Red Blood Cells Cpd As1 0 Lr Unit [id number] Other 100 Apheresis Rbc Cp2d As3 Lr 100 2nd Unit [id number] Output: Urine 195 1000 450 Urethral (Landry) 195 1000 450 Other: # Bowel Movements 1 - Medications Medications: Current Medications Acetaminophen (Tylenol 325mg Tab) 325 mg PO Q4 PRN PRN Reason: pain Ferrous Sulfate (Feosol) 325 mg PO BID [facility] Last Admin: 04/06/17 18:11 Dose: Not Given Vancomycin/Sodium Chloride (Vancomycin 1 Gm/Ns 200 Ml) 1 gm in 200 mls @ 166.7 mls/hr IVPB Q24H [facility] Stop: 04/11/17 10:01 Last Admin: 04/06/17 10:15 Dose: 166.7 mls/hr Cefepime HCl (Maxipime Iv 1 Gm Premix) 1 gm in 50 mls @ 100 mls/hr IVPB Q12H [facility] Last Admin: 04/06/17 23:16 Dose: 100 mls/hr Lactated Ringer's (Lactated Ringer's) 1,000 mls @ 105 mls/hr IV .Q9H32M [facility] Last Admin: 04/07/17 03:00 Dose: 105 mls/hr Norepinephrine Bitartrate 4 mg (/ Dextrose) 254 mls @ 15.24 mls/hr IV .[id number] PRN; Protocol; 4 MCG/MIN PRN Reason: TITRATE PER MD ORDER Insulin Human Regular (Novolin R) 0 unit SC Q6 [facility] PRN Reason: Protocol Last Admin: 04/07/17 06:35 Dose: Not Given Ondansetron HCl (Zofran Odt) 8 mg PO Q8H PRN PRN Reason: Nausea/Vomiting Pantoprazole Sodium (Protonix Ec Tab) 40 mg PO DAILY [facility] Last Admin: 04/06/17 10:16 Dose: 40 mg Potassium Phos/Sodium Phos (Neutra-Phos) 1 pkt PO [facility]ID[facility] Saccharomyces Boulardii (Florastor) 250 mg PO DAILY [facility] Last Admin: 04/06/17 10:16 Dose: 250 mg - Labs Labs (last 24 hours): Laboratory Results - last 24 hr 04/05/17 04/06/17 04/06/17 20:50 01:00 12:43 WBC 12.2 H RBC 2.63 L Hgb 7.4 L D Hct 21.8 L MCV 82.7 D MCH 28.1 MCHC 34.0 RDW 15.1 H Plt Count 107 L D MPV 7.9 Neut % (Auto) Lymph % (Auto) Bay % (Auto) Eos % (Auto) Baso % (Auto) Neut # Lymph # Bay # Eos # Baso # PT INR APTT Fibrinogen Sodium Potassium Chloride Carbon Dioxide Anion Gap BUN Creatinine Est GFR ( Amer) Est GFR (Non-Af Amer) POC Glucose (mg/dL) Random Glucose Lactic Acid Calcium Phosphorus Magnesium Total Bilirubin AST ALT Alkaline Phosphatase Total Protein Albumin Globulin Albumin/Globulin Ratio Blood Type B POSITIVE Antibody Screen Positive Antibody Identification Anti C Crossmatch See Detail Enhanced Crossmatch See Detail 04/06/17 04/06/17 04/06/17 12:43 12:43 17:40 WBC RBC Hgb Hct MCV MCH MCHC RDW Plt Count MPV Neut % (Auto) Lymph % (Auto) Bay % (Auto) Eos % (Auto) Baso % (Auto) Neut # Lymph # Bay # Eos # Baso # PT INR APTT Fibrinogen 190 L Sodium Potassium Chloride Carbon Dioxide Anion Gap BUN Creatinine Est GFR ( Amer) Est GFR (Non-Af Amer) POC Glucose (mg/dL) 149 H Random Glucose Lactic Acid 0.9 Calcium Phosphorus Magnesium Total Bilirubin AST ALT Alkaline Phosphatase Total Protein Albumin Globulin Albumin/Globulin Ratio Blood Type Antibody Screen Antibody Identification Crossmatch Enhanced Crossmatch 04/06/17 04/06/17 04/06/17 22:19 23:38 23:38 WBC 13.7 H RBC 3.35 L Hgb 10.0 L D Hct 29.0 L MCV 86.6 D MCH 29.8 MCHC 34.4 RDW 16.2 H Plt Count 110 L MPV 7.3 Neut % (Auto) 85.4 H Lymph % (Auto) 10.0 L Bay % (Auto) 4.4 Eos % (Auto) 0.0 Baso % (Auto) 0.2 Neut # 11.7 H Lymph # 1.4 Bay # 0.6 Eos # 0.0 Baso # 0.0 PT INR APTT Fibrinogen Sodium Potassium Chloride Carbon Dioxide Anion Gap BUN Creatinine Est GFR ( Amer) Est GFR (Non-Af Amer) POC Glucose (mg/dL) 170 H 170 H Random Glucose Lactic Acid Calcium Phosphorus Magnesium Total Bilirubin AST ALT Alkaline Phosphatase Total Protein Albumin Globulin Albumin/Globulin Ratio Blood Type Antibody Screen Antibody Identification Crossmatch Enhanced Crossmatch 04/07/17 04/07/17 04/07/17 05:50 06:44 06:44 WBC 12.1 H RBC 3.58 L Hgb 10.8 L Hct 31.1 L MCV 86.8 MCH 30.2 MCHC 34.8 RDW 16.8 H Plt Count 131 MPV 7.9 Neut % (Auto) 80.3 H Lymph % (Auto) 13.1 L Bay % (Auto) 6.5 Eos % (Auto) 0.0 Baso % (Auto) 0.1 Neut # 9.7 H Lymph # 1.6 Bay # 0.8 Eos # 0.0 Baso # 0.0 PT INR APTT Fibrinogen Sodium 134 Potassium 3.6 Chloride 109 H Carbon Dioxide 21 L Anion Gap 8 L BUN 10 Creatinine 0.3 L Est GFR ( Amer) > 60 Est GFR (Non-Af Amer) > 60 POC Glucose (mg/dL) 90 Random Glucose 83 Lactic Acid Calcium 7.2 L Phosphorus 2.4 L Magnesium 1.9 Total Bilirubin 1.2 AST 29 ALT 25 Alkaline Phosphatase 50 Total Protein 4.2 L Albumin 1.9 L D Globulin 2.3 Albumin/Globulin Ratio 0.8 L Blood Type Antibody Screen Antibody Identification Crossmatch Enhanced Crossmatch 04/07/17 04/07/17 06:44 11:21 WBC RBC Hgb Hct MCV MCH MCHC RDW Plt Count MPV Neut % (Auto) Lymph % (Auto) Bay % (Auto) Eos % (Auto) Baso % (Auto) Neut # Lymph # Bay # Eos # Baso # PT 11.4 INR 1.0 APTT 24 Fibrinogen 191 L Sodium Potassium Chloride Carbon Dioxide Anion Gap BUN Creatinine Est GFR ( Amer) Est GFR (Non-Af Amer) POC Glucose (mg/dL) 135 H Random Glucose Lactic Acid Calcium Phosphorus Magnesium Total Bilirubin AST ALT Alkaline Phosphatase Total Protein Albumin Globulin Albumin/Globulin Ratio Blood Type Antibody Screen Antibody Identification Crossmatch Enhanced Crossmatch
[2017-04-07] MEDS ORDERED: Absorbable Gelatin Sponge Size 12-7 ONE (13:48)
[2017-04-07] MEDS ORDERED: HEPARIN-NS 5,000 UNITS/500 ML 10,000 UNIT/1,000 ML BAG IV ONE (13:49)
[2017-04-07] MEDS ORDERED: Calcium Gluconate 4.65 mEq/10 ml Inj ONE (13:51)
[2017-04-07 14:28] LABS: BASO % 0.1 % (0.0-2.0); EOS % 0.1 % (0.0-4.0); HEMATOCRIT 20.6 % (34.0-47.0); LYMPH # 0.8 K/uL (1.0-4.3); LYMPH % 7.6 % (20.0-40.0); MEAN CELL VOLUME 88.3 fL (81.0-99.0); MEAN CORPUSCULAR HEMOGLOBIN 30.7 pg (27.0-31.0); MEAN CORPUSCULAR HGB CONC 34.7 g/dL (33.0-37.0); MEAN PLATELET VOLUME 7.6 fL (7.2-11.7); MONO # 0.2 K/uL (0.0-0.8); MONO % 2.4 % (0.0-10.0); NRBC % 0.1 % (0.0-2.0); RED CELL DISTRIBUTION WIDTH 15.2 % (11.5-14.5); WHITE BLOOD COUNT 10.4 K/uL (4.8-10.8)
[2017-04-07 14:35] LABS: VENOUS BLOOD GAS BASE EXCESS -8.8 mmol/L (0.0-2.0); VENOUS BLOOD GAS PCO2 41 mmHg (40-60); VENOUS BLOOD PH 7.25 (7.32-7.43)
[2017-04-07 14:39] LABS: INR 1.4
[2017-04-07] MEDS ORDERED: Racepinephrine 2.25% Inhal Soln 0.5 ML UD ONE ×2 (14:47→14:51)
[2017-04-07] MEDS ORDERED: Racepinephrine 2.25% Inhal Soln 0.5 ML UD INH STA ×2 (14:47→14:54)
[2017-04-07 14:48] LABS: PLATELET COUNT 97 K/uL (130-400)
[2017-04-07 14:54] LABS: ALKALINE PHOSPHATASE 35 U/L (38-126); ALT/SGPT 33 U/L (9-52); AST/SGOT 19 U/L (14-36); BILIRUBIN,TOTAL 1.4 mg/dL (0.2-1.3); BLOOD UREA NITROGEN 10 mg/dL (7-17); CALCIUM 7.5 mg/dl (8.6-10.4); CARBON DIOXIDE 22 mmol/L (22-30); CHLORIDE 107 mmol/L (98-107); GFR AFRICAN-AMERICAN > 60; GLUCOSE,RANDOM 147 mg/dL (65-105); POTASSIUM 2.9 mmol/L (3.6-5.2); SODIUM 136 mmol/L (132-148); TOTAL PROTEIN 3.3 g/dL (6.3-8.3)
[2017-04-07 15:29] LABS: NEUTROPHIL 78 % (50-75); NUCLEATED RED BLOOD CELL 1 % (0-0); TOTAL CELLS COUNTED 100
[2017-04-07] MEDS: Saccharomyces Boulardi 250 mg Cap PO SCH (16:01)
[2017-04-07] MEDS: Cefepime IV 1 gm in Dextrose 1 GM/50 ML BAG IVPB SCH (16:02)
[2017-04-07] MEDS: Potassium & Sodium Phosphate PO SCH ×2 (16:03→18:09)
[2017-04-07] MEDS: Vancomycin 1 gm/NS 200 ml 1 GM/200 ML BAG IVPB SCH (16:04)
[2017-04-07] MEDS: Pantoprazole 40 mg EC Tab PO SCH (16:07)
[2017-04-07 16:21] LABS: ABG ALLEN TEST POS; ARTERIAL BLOOD HGB O2 SAT 95.5 % (95.0-98.0); CARBOXYHEMOGLOBIN 2.6 % (0.5-1.5); DRAW SITE RRA; HHB 0.4 % (0.0-5.0); METHEMOGLOBIN 1.5 % (0.0-3.0)
--- NOTE | 2017-04-07 16:48 | CP.PCM.PN ---
Subjective - Date & Time of Evaluation Date of Evaluation: 04/07/17 Time of Evaluation: 07:00 - Subjective Subjective: GENERAL SURGERY PROGRESS NOTE FOR DR. HINES Patient seen and examined at bedside. She is going for IR embolization procedure today. She is NPO. Objective - Vital Signs/Intake and Output Vital Signs (last 24 hours): Temp Pulse Resp BP Pulse Ox 98 F 109 H 12 128/82 99 04/07/17 12:00 04/07/17 12:00 04/07/17 12:00 04/07/17 12:00 04/07/17 12:00 Intake and Output: 04/07/17 04/07/17 06:59 18:59 Intake Total 1730 4262 Output Total 1000 700 Balance 730 3562 - Medications Medications: Current Medications Acetaminophen (Tylenol 325mg Tab) 325 mg PO Q4 PRN PRN Reason: pain Ferrous Sulfate (Feosol) 325 mg PO BID [facility] Last Admin: 04/07/17 16:00 Dose: Not Given Vancomycin/Sodium Chloride (Vancomycin 1 Gm/Ns 200 Ml) 1 gm in 200 mls @ 166.7 mls/hr IVPB Q24H [facility] Stop: 04/11/17 10:01 Last Admin: 04/07/17 16:04 Dose: Not Given Cefepime HCl (Maxipime Iv 1 Gm Premix) 1 gm in 50 mls @ 100 mls/hr IVPB Q12H [facility] Last Admin: 04/07/17 16:02 Dose: Not Given Lactated Ringer's (Lactated Ringer's) 1,000 mls @ 105 mls/hr IV .Q9H32M [facility] Last Admin: 04/07/17 16:02 Dose: Not Given Norepinephrine Bitartrate 4 mg (/ Dextrose) 254 mls @ 15.24 mls/hr IV .[id number] PRN; Protocol; 4 MCG/MIN PRN Reason: TITRATE PER MD ORDER Insulin Human Regular (Novolin R) 0 unit SC Q6 [facility] PRN Reason: Protocol Last Admin: 04/07/17 16:03 Dose: Not Given Ondansetron HCl (Zofran Odt) 8 mg PO Q8H PRN PRN Reason: Nausea/Vomiting Pantoprazole Sodium (Protonix Ec Tab) 40 mg PO DAILY [facility] Last Admin: 04/07/17 16:07 Dose: Not Given Potassium Phos/Sodium Phos (Neutra-Phos) 1 pkt PO BIDCC [facility] Last Admin: 04/07/17 16:03 Dose: Not Given Saccharomyces Boulardii (Florastor) 250 mg PO DAILY [facility] Last Admin: 04/07/17 16:01 Dose: Not Given - Labs Labs: 04/07/17 14:22 04/07/17 14:22 PT 15.4 SECONDS (9.7-12.2) H 04/07/17 14:22 INR 1.4 04/07/17 14:22 APTT 34 SECONDS (21-34) D 04/07/17 14:22 - Constitutional Appears: No Acute Distress, Cachectic, Chronically Ill - Respiratory Exam Respiratory Exam: NORMAL BREATHING PATTERN. absent: Respiratory Distress - Cardiovascular Exam Cardiovascular Exam: +S1, +S2 - GI/Abdominal Exam GI & Abdominal Exam: absent: Distended, Firm - Neurological Exam Neurological Exam: Alert, Awake - Psychiatric Exam Psychiatric exam: Anxious - Skin Additional comments: Left breast mass with saturated dressing Assessment and Plan - Assessment and Plan (Free Text) Assessment: 51F with bleeding large invasive ductal carcinoma mass - Had CTA chest to evaluate tumor blood supply - Going for IR angiography and embolization today - Monitor H/H, Transfuse PRN - Monitor for bleeding - Patient and family refusing any intervention regarding the Breast CA including surgery and chemo - Management as per ICU - Discussed with Dr. Amos Fonseca PGY-3
--- NOTE | 2017-04-07 17:43 | PCM.SURG1 ---
Surgeon's Initial Post Op Note - Surgeon's Notes Surgeon: Rock Kennedy MD Producer Arborist Manager: None Type of Anesthesia: MAC Pre-Operative Diagnosis: Hemorrhagic left breast mass Operative Findings: multiple neovessels supplying left breast tumor arising from branches of internal mammary artery and thoracromial artery Post-Operative Diagnosis: successful particle embolization with significant tumoral devascularization Operation Performed: left upper extremity angiography; particle embolization Specimen/Specimens Removed: n/a Estimated Blood Loss: EBL {In ML}: 500 (see anesthesia record for more accurate estimate) Blood Products Given: PRBC (see anesthesia record), FFP (see anesthesia record) Post-Op Condition: Good Date of Surgery/Procedure: 04/07/17 Time of Surgery/Procedure: 16:15
[2017-04-07] MEDS ORDERED: HYDROmorphone 0.5 mg/0.5 ml ISec IVP PRN (18:18)
--- NOTE | 2017-04-07 18:50 | CP.PCM.PN ---
Subjective - Date & Time of Evaluation Date of Evaluation: 04/07/17 Time of Evaluation: 12:40 - Subjective Subjective: Spoke to the patient and her son via survey operations director Carlos Lamar, [phone] via in demand. Spoke in detail and the family and the patient agreed pt waNTED everything done ,all resuscitative measures, DNR/DNI to remain rescinded throughout the surgery , breast embolization. Objective - Vital Signs/Intake and Output Vital Signs (last 24 hours): Temp Pulse Resp BP Pulse Ox 95.5 F L 90 12 132/70 100 04/07/17 16:00 04/07/17 18:10 04/07/17 18:10 04/07/17 18:10 04/07/17 18:10 Intake and Output: 04/07/17 04/07/17 06:59 18:59 Intake Total 1730 4612 Output Total 1000 1500 Balance 730 3112 - Medications Medications: Current Medications Acetaminophen (Tylenol 325mg Tab) 325 mg PO Q4 PRN PRN Reason: pain Ferrous Sulfate (Feosol) 325 mg PO BID [facility] Last Admin: 04/07/17 18:08 Dose: Not Given Hydromorphone HCl (Dilaudid) 0.5 mg IVP Q5M PRN PRN Reason: Pain, moderate (4-7) Stop: 04/07/17 20:19 Vancomycin/Sodium Chloride (Vancomycin 1 Gm/Ns 200 Ml) 1 gm in 200 mls @ 166.7 mls/hr IVPB Q24H [facility] Stop: 04/11/17 10:01 Last Admin: 04/07/17 16:04 Dose: Not Given Cefepime HCl (Maxipime Iv 1 Gm Premix) 1 gm in 50 mls @ 100 mls/hr IVPB Q12H [facility] Last Admin: 04/07/17 16:02 Dose: Not Given Lactated Ringer's (Lactated Ringer's) 1,000 mls @ 105 mls/hr IV .Q9H32M [facility] Last Admin: 04/07/17 16:02 Dose: Not Given Norepinephrine Bitartrate 4 mg (/ Dextrose) 254 mls @ 15.24 mls/hr IV .[id number] PRN; Protocol; 4 MCG/MIN PRN Reason: TITRATE PER MD ORDER Insulin Human Regular (Novolin R) 0 unit SC Q6 [facility] PRN Reason: Protocol Last Admin: 04/07/17 16:03 Dose: Not Given Ondansetron HCl (Zofran Odt) 8 mg PO Q8H PRN PRN Reason: Nausea/Vomiting Ondansetron HCl (Zofran Inj) 4 mg IVP ONCE PRN PRN Reason: Nausea/Vomiting Stop: 04/07/17 20:19 Pantoprazole Sodium (Protonix Ec Tab) 40 mg PO DAILY [facility] Last Admin: 04/07/17 16:07 Dose: Not Given Potassium Phos/Sodium Phos (Neutra-Phos) 1 pkt PO BIDCC [facility] Last Admin: 04/07/17 18:09 Dose: Not Given Saccharomyces Boulardii (Florastor) 250 mg PO DAILY [facility] Last Admin: 04/07/17 16:01 Dose: Not Given - Labs Labs: 04/07/17 14:22 04/07/17 14:22 PT 15.4 SECONDS (9.7-12.2) H 04/07/17 14:22 INR 1.4 04/07/17 14:22 APTT 34 SECONDS (21-34) D 04/07/17 14:22
--- NOTE | 2017-04-07 19:55 | CP.PCM.PN ---
Subjective - Date & Time of Evaluation Date of Evaluation: 04/07/17 Time of Evaluation: 11:00 - Subjective Subjective: clinically same Objective - Vital Signs/Intake and Output Vital Signs (last 24 hours): Temp Pulse Resp BP Pulse Ox 95.5 F L 90 12 132/70 100 04/07/17 16:00 04/07/17 18:10 04/07/17 18:10 04/07/17 18:10 04/07/17 18:10 Intake and Output: 04/07/17 04/08/17 18:59 06:59 Intake Total 4612 Output Total 1500 Balance 3112 - Medications Medications: Current Medications Acetaminophen (Tylenol 325mg Tab) 325 mg PO Q4 PRN PRN Reason: pain Ferrous Sulfate (Feosol) 325 mg PO BID [facility] Last Admin: 04/07/17 18:08 Dose: Not Given Hydromorphone HCl (Dilaudid) 0.5 mg IVP Q5M PRN PRN Reason: Pain, moderate (4-7) Stop: 04/07/17 20:19 Vancomycin/Sodium Chloride (Vancomycin 1 Gm/Ns 200 Ml) 1 gm in 200 mls @ 166.7 mls/hr IVPB Q24H [facility] Stop: 04/11/17 10:01 Last Admin: 04/07/17 16:04 Dose: Not Given Cefepime HCl (Maxipime Iv 1 Gm Premix) 1 gm in 50 mls @ 100 mls/hr IVPB Q12H [facility] Last Admin: 04/07/17 16:02 Dose: Not Given Lactated Ringer's (Lactated Ringer's) 1,000 mls @ 105 mls/hr IV .Q9H32M [facility] Last Admin: 04/07/17 16:02 Dose: Not Given Norepinephrine Bitartrate 4 mg (/ Dextrose) 254 mls @ 15.24 mls/hr IV .[id number] PRN; Protocol; 4 MCG/MIN PRN Reason: TITRATE PER MD ORDER Insulin Human Regular (Novolin R) 0 unit SC Q6 [facility] PRN Reason: Protocol Last Admin: 04/07/17 18:51 Dose: Not Given Ondansetron HCl (Zofran Odt) 8 mg PO Q8H PRN PRN Reason: Nausea/Vomiting Ondansetron HCl (Zofran Inj) 4 mg IVP ONCE PRN PRN Reason: Nausea/Vomiting Stop: 04/07/17 20:19 Pantoprazole Sodium (Protonix Ec Tab) 40 mg PO DAILY [facility] Last Admin: 04/07/17 16:07 Dose: Not Given Potassium Phos/Sodium Phos (Neutra-Phos) 1 pkt PO BIDCC [facility] Last Admin: 04/07/17 18:09 Dose: Not Given Saccharomyces Boulardii (Florastor) 250 mg PO DAILY [facility] Last Admin: 04/07/17 16:01 Dose: Not Given - Labs Labs: 04/07/17 14:22 04/07/17 14:22 PT 15.4 SECONDS (9.7-12.2) H 04/07/17 14:22 INR 1.4 04/07/17 14:22 APTT 34 SECONDS (21-34) D 04/07/17 14:22 - Constitutional Appears: Well - Head Exam Head Exam: ATRAUMATIC, NORMAL INSPECTION, NORMOCEPHALIC - Eye Exam Eye Exam: EOMI, Normal appearance, PERRL Pupil Exam: NORMAL ACCOMODATION, PERRL - ENT Exam ENT Exam: Mucous Membranes Moist, Normal Exam - Neck Exam Neck Exam: Full ROM, Normal Inspection. absent: Lymphadenopathy - Respiratory Exam Respiratory Exam: Decreased Breath Sounds - Cardiovascular Exam Cardiovascular Exam: REGULAR RHYTHM, +S1, +S2 - GI/Abdominal Exam GI & Abdominal Exam: Soft, Diminished Bowel Sounds - Rectal Exam Rectal Exam: Deferred Assessment and Plan (1) Bleeding Status: Acute (2) Bleeding from breast Status: Acute (3) Breast cancer Status: Acute (4) DIC (disseminated intravascular coagulation) Status: Acute (5) Leukocytosis Status: Acute (6) Skin irritation Status: Acute (7) Tachycardia Status: Acute (8) Thrombocytopenia Status: Acute (9) Anemia Status: Acute (10) Anemia Status: Acute (11) Breast cancer Status: Acute (12) Breast mass, left Status: Acute (13) Chest pain Status: Acute (14) Clinical decompensation Status: Acute (15) Constipation Status: Acute (16) Invasive ductal carcinoma of breast, stage 3 Status: Acute (17) Malnutrition Status: Acute (18) 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
[2017-04-07 21:14] LABS: BASO % 0.1 % (0.0-2.0); LYMPH # 0.4 K/uL (1.0-4.3); LYMPH % 2.5 % (20.0-40.0); MEAN CORPUSCULAR HEMOGLOBIN 29.2 pg (27.0-31.0); MEAN CORPUSCULAR HGB CONC 34.5 g/dL (33.0-37.0); MEAN PLATELET VOLUME 7.4 fL (7.2-11.7); MONO # 0.3 K/uL (0.0-0.8); MONO % 1.7 % (0.0-10.0); RED CELL DISTRIBUTION WIDTH 14.8 % (11.5-14.5); WHITE BLOOD COUNT 14.8 K/uL (4.8-10.8)
[2017-04-07 21:21] LABS: MEAN CELL VOLUME 84.6 fL (81.0-99.0); PLATELET COUNT 57 K/uL (130-400)
[2017-04-07] MEDS ORDERED: [UNRECOGNIZED DRUG - OTHER] IV PRN (21:26)
[2017-04-07 22:07] LABS: NEUTROPHIL 96 % (50-75); TOTAL CELLS COUNTED 100
--- NOTE | 2017-04-07 22:30 | CP.PCM.PN ---
Subjective - Date & Time of Evaluation Date of Evaluation: 04/07/17 Time of Evaluation: 11:00 - Subjective Subjective: For IR embolization Objective - Vital Signs/Intake and Output Vital Signs (last 24 hours): Temp Pulse Resp BP Pulse Ox 96.6 F L 99 H 12 115/69 100 04/07/17 21:00 04/07/17 21:24 04/07/17 21:24 04/07/17 21:24 04/07/17 21:24 Intake and Output: 04/07/17 04/08/17 18:59 06:59 Intake Total 4662 255 Output Total 2200 1525 Balance 2462 -1270 - Medications Medications: Current Medications Acetaminophen (Tylenol 325mg Tab) 650 mg PO Q4 PRN PRN Reason: Pain, Mild (1-3) Ferrous Sulfate (Feosol) 325 mg PO BID [facility] Last Admin: 04/07/17 18:08 Dose: Not Given Vancomycin/Sodium Chloride (Vancomycin 1 Gm/Ns 200 Ml) 1 gm in 200 mls @ 166.7 mls/hr IVPB Q24H [facility] Stop: 04/11/17 10:01 Last Admin: 04/07/17 16:04 Dose: Not Given Cefepime HCl (Maxipime Iv 1 Gm Premix) 1 gm in 50 mls @ 100 mls/hr IVPB Q12H [facility] Last Admin: 04/07/17 16:02 Dose: Not Given Lactated Ringer's (Lactated Ringer's) 1,000 mls @ 105 mls/hr IV .Q9H32M [facility] Last Admin: 04/07/17 21:27 Dose: Not Given Norepinephrine Bitartrate 4 mg (/ Dextrose) 254 mls @ 15.24 mls/hr IV .[id number] PRN; Protocol; 4 MCG/MIN PRN Reason: TITRATE PER MD ORDER Insulin Human Regular (Novolin R) 0 unit SC Q6 [facility] PRN Reason: Protocol Last Admin: 04/07/17 18:51 Dose: Not Given Morphine Sulfate (Morphine) 2 mg IVP Q4 PRN PRN Reason: Pain, moderate (4-7) Last Admin: 04/07/17 21:39 Dose: 2 mg Morphine Sulfate (Morphine) 4 mg IV Q4 PRN PRN Reason: Pain, severe (8-10) Ondansetron HCl (Zofran Odt) 8 mg PO Q8H PRN PRN Reason: Nausea/Vomiting Pantoprazole Sodium (Protonix Ec Tab) 40 mg PO DAILY [facility] Last Admin: 04/07/17 16:07 Dose: Not Given Potassium Phos/Sodium Phos (Neutra-Phos) 1 pkt PO BIDCC [facility] Last Admin: 04/07/17 18:09 Dose: Not Given Saccharomyces Boulardii (Florastor) 250 mg PO DAILY [facility] Last Admin: 04/07/17 16:01 Dose: Not Given - Labs Labs: 04/07/17 21:11 04/07/17 14:22 PT 15.4 SECONDS (9.7-12.2) H 04/07/17 14:22 INR 1.4 04/07/17 14:22 APTT 34 SECONDS (21-34) D 04/07/17 14:22 - Head Exam Head Exam: ATRAUMATIC - Eye Exam Eye Exam: Normal appearance - ENT Exam ENT Exam: Mucous Membranes Dry - Respiratory Exam Respiratory Exam: NORMAL BREATHING PATTERN - Cardiovascular Exam Cardiovascular Exam: +S1, +S2 - GI/Abdominal Exam GI & Abdominal Exam: Normal Bowel Sounds Assessment and Plan (1) Anemia Assessment & Plan: acute blood loss; for embolization, surgical f/u transfusion support Status: Acute (2) DIC (disseminated intravascular coagulation) Assessment & Plan: dilutional from massive transfusion FFP and cryopercipitate Status: Acute (3) Thrombocytopenia Assessment & Plan: dilutional DIC plt transfusion PRN Status: Acute (4) Leukocytosis Assessment & Plan: on antibiotics likely reactive component to bleeding Status: Acute (5) Breast cancer Assessment & Plan: for IR embolization will rediscuss outpatient treatment Status: Acute
[2017-04-08] MEDS: Cefepime IV 1 gm in Dextrose 1 GM/50 ML BAG IVPB SCH ×3 (00:30→23:30)
[2017-04-08 06:41] LABS: HEMATOCRIT 19.6 % (34.0-47.0); LYMPH # 0.6 K/uL (1.0-4.3); MEAN CELL VOLUME 84.8 fL (81.0-99.0); MEAN CORPUSCULAR HEMOGLOBIN 30.1 pg (27.0-31.0); MEAN CORPUSCULAR HGB CONC 35.4 g/dL (33.0-37.0); MEAN PLATELET VOLUME 7.8 fL (7.2-11.7); MONO # 0.3 K/uL (0.0-0.8); PLATELET COUNT 65 K/uL (130-400); RED CELL DISTRIBUTION WIDTH 14.9 % (11.5-14.5); WHITE BLOOD COUNT 9.5 K/uL (4.8-10.8)
[2017-04-08 07:25] LABS: BLOOD UREA NITROGEN 8 mg/dL (7-17); CALCIUM 7.6 mg/dl (8.6-10.4); CARBON DIOXIDE 28 mmol/L (22-30); CHLORIDE 97 mmol/L (98-107); GFR AFRICAN-AMERICAN > 60; GLUCOSE,RANDOM 124 mg/dL (65-105); MAGNESIUM 1.4 mg/dL (1.6-2.3); PHOSPHOROUS 3.1 mg/dL (2.5-4.5); SODIUM 138 mmol/L (132-148)
[2017-04-08 07:26] LABS: ALB/GLOB RATIO 1.2 (1.0-2.1); ALKALINE PHOSPHATASE 50 U/L (38-126); ALT/SGPT 27 U/L (9-52); AST/SGOT 23 U/L (14-36); BILIRUBIN,TOTAL 1.6 mg/dL (0.2-1.3); TOTAL PROTEIN 4.7 g/dL (6.3-8.3)
[2017-04-08 07:27] LABS: POTASSIUM 2.1 mmol/L (3.6-5.2)
[2017-04-08] MEDS: Lactated Ringer's 1,000 ML IV SCH ×2 (07:38→16:00)
[2017-04-08 08:39] LABS: HEMATOCRIT 19.3 % (34.0-47.0); LYMPH # 0.6 K/uL (1.0-4.3); MEAN CELL VOLUME 84.9 fL (81.0-99.0); MEAN CORPUSCULAR HEMOGLOBIN 29.8 pg (27.0-31.0); MEAN CORPUSCULAR HGB CONC 35.1 g/dL (33.0-37.0); MEAN PLATELET VOLUME 7.6 fL (7.2-11.7); MONO # 0.4 K/uL (0.0-0.8); MONO % 4.4 % (0.0-10.0); RED CELL DISTRIBUTION WIDTH 14.7 % (11.5-14.5); WHITE BLOOD COUNT 8.9 K/uL (4.8-10.8)
[2017-04-08 08:49] LABS: NEUTROPHIL 91 % (50-75); TOTAL CELLS COUNTED 100
--- NOTE | 2017-04-08 08:49 | CP.PCM.PN ---
Subjective - Date & Time of Evaluation Date of Evaluation: 04/08/17 Time of Evaluation: 06:45 - Subjective Subjective: General Surgery Dr. Trinidad Pt S&E @bedside. Pt underwent IR embolization yesterday for bleeding breast mass. Surgery was present in case of significant bleeding. Pt received multiple blood products yesterday w/ no adverse reactions noted per nursing. Nursing reports some bleeding overnight which was reinforced w/ gauze and abd. This morning pt reports occasional dizziness and feeling hungry. pt deies F/C, N/V, SOB, CP. Objective - Vital Signs/Intake and Output Vital Signs (last 24 hours): Temp Pulse Resp BP Pulse Ox 98.3 F 88 14 102/52 L 100 04/08/17 02:45 04/08/17 07:33 04/08/17 07:33 04/08/17 07:33 04/08/17 07:33 Intake and Output: 04/08/17 04/08/17 06:59 18:59 Intake Total 429 Output Total 2800 Balance -2371 - Medications Medications: Current Medications Acetaminophen (Tylenol 325mg Tab) 650 mg PO Q4 PRN PRN Reason: Pain, Mild (1-3) Ferrous Sulfate (Feosol) 325 mg PO BID [facility] Last Admin: 04/07/17 18:08 Dose: Not Given Vancomycin/Sodium Chloride (Vancomycin 1 Gm/Ns 200 Ml) 1 gm in 200 mls @ 166.7 mls/hr IVPB Q24H [facility] Stop: 04/11/17 10:01 Last Admin: 04/07/17 16:04 Dose: Not Given Cefepime HCl (Maxipime Iv 1 Gm Premix) 1 gm in 50 mls @ 100 mls/hr IVPB Q12H [facility] Last Admin: 04/08/17 00:30 Dose: 100 mls/hr Lactated Ringer's (Lactated Ringer's) 1,000 mls @ 105 mls/hr IV .[id number] [facility] Last Admin: 04/08/17 07:38 Dose: 105 mls/hr Norepinephrine Bitartrate 4 mg (/ Dextrose) 254 mls @ 15.24 mls/hr IV .[id number] PRN; Protocol; 4 MCG/MIN PRN Reason: TITRATE PER MD ORDER Insulin Human Regular (Novolin R) 0 unit SC Q6 DANNA PRN Reason: Protocol Last Admin: 04/08/17 00:00 Dose: Not Given Morphine Sulfate (Morphine) 2 mg IVP Q4 PRN PRN Reason: Pain, moderate (4-7) Last Admin: 04/07/17 21:39 Dose: 2 mg Morphine Sulfate (Morphine) 4 mg IV Q4 PRN PRN Reason: Pain, severe (8-10) Ondansetron HCl (Zofran Odt) 8 mg PO Q8H PRN PRN Reason: Nausea/Vomiting Pantoprazole Sodium (Protonix Ec Tab) 40 mg PO DAILY [facility] Last Admin: 04/07/17 16:07 Dose: Not Given Potassium Phos/Sodium Phos (Neutra-Phos) 1 pkt PO BIDCC [facility] Last Admin: 04/07/17 18:09 Dose: Not Given Saccharomyces Boulardii (Florastor) 250 mg PO DAILY [facility] Last Admin: 04/07/17 16:01 Dose: Not Given - Labs Labs: 04/08/17 08:32 04/08/17 06:35 PT 15.4 SECONDS (9.7-12.2) H 04/07/17 14:22 INR 1.4 04/07/17 14:22 APTT 34 SECONDS (21-34) D 04/07/17 14:22 - Constitutional Appears: Non-toxic, No Acute Distress, Chronically Ill - Head Exam Head Exam: NORMAL INSPECTION - Eye Exam Eye Exam: Normal appearance - ENT Exam ENT Exam: Mucous Membranes Moist - Respiratory Exam Respiratory Exam: NORMAL BREATHING PATTERN. absent: Accessory Muscle Use, Respiratory Distress - Cardiovascular Exam Cardiovascular Exam: absent: Bradycardia, Tachycardia - GI/Abdominal Exam GI & Abdominal Exam: Soft. absent: Distended, Tenderness - Extremities Exam Extremities Exam: Normal Inspection - Neurological Exam Neurological Exam: Alert, Awake, Oriented x3 - Psychiatric Exam Psychiatric exam: Normal Affect, Normal Mood - Skin Skin Exam: Dry, Normal Color, Warm - Additional Findings Additional findings: L breast w/ large bleeding mass present blood pooling around axilla xeroform and jared drains in place. Assessment and Plan - Assessment and Plan (Free Text) Assessment: 51 y/ F w/ large, bleeding invasive ductal carcinoma POD#1 s/p IR embolization - CLD - pain management - Monitor H/H, Transfuse PRN - dressing changes PRN --> Xeroform covering mass w/ 4x4 and ABD reinforcement - cont medical management per Critical Care - GI PPx - encourage OOB to chair/IS use Pt discussed w/ Dr. Amos Banuelos DO PGY2
[2017-04-08] MEDS: (Novolin R) Insulin Human Regular 100 units/ml vial SC SCH ×4 (09:11→18:00)
[2017-04-08] MEDS: Potassium & Sodium Phosphate PO SCH (09:24)
[2017-04-08] MEDS: Saccharomyces Boulardi 250 mg Cap PO SCH (09:27)
[2017-04-08] MEDS: Pantoprazole 40 mg EC Tab PO SCH (09:28)
--- NOTE | 2017-04-08 09:48 | CP.CCUPN ---
CCU Subjective - Physician Review Events Since Last Encounter (Free Text): 04/08/17 09:45 patient is a 50-year-old female with a left breast ulcerated cancer, complicated with the bleeding arterial. Patient had a significant bleeding yesterday, and he received 6 units of PRBC, 4 units of FFP, cryoprecipitate, and platelets. She also underwent arterial embolization by interventional radiologist to be Today she is feeling slightly better. No weakness noted. The dressing in the left side the chest area soaked with the blood Today's labs revealed Vital signs otherwise stable. Temp Pulse Resp BP Pulse Ox 98.3 F 88 14 102/52 L 100 04/08/17 02:45 04/08/17 07:33 04/08/17 07:33 04/08/17 07:33 04/08/17 07:33 chest good air entry Melanie Abdomen soft Nontender abdomen 04/08/17 08:32 04/08/17 06:35 assessment and recommendation: 50-year-old female with ulcerated left breast mass, massive bleeding, status post multiple intervention. patient is still having significant bruising. Femoral catheter noted. Please given 1 more unit of blood transfusion now We'll repeat the CBCSupplement the potassium. procedure monitor. And will follow the patient. No aspirin. No anticoagulate at this time. CCU Objective - Vital Signs / Intake & Output Vital Signs (Last 4 hours): Vital Signs Pulse Resp BP Pulse Ox 04/08/17 07:33 88 14 102/52 L 100 04/08/17 07:00 76 14 100 04/08/17 06:00 74 11 L 99 Intake and Output (Last 8hrs): Intake & Output 04/07/17 04/08/17 04/08/17 22:59 06:59 14:59 Intake Total 655 539 Output Total 3275 1999 Balance -4356 -2002 Weight 92 lb 9.6 oz Intake: Blood Product 655 539 Output: Urine 3275 1999 Urethral (Landry) 3275 1999 - Physical Exam Head: Positive for: Atraumatic, Normocephalic Respiratory/Chest: Positive for: Clear to Auscultation, Good Air Exchange Cardiovascular: Positive for: Regular Rate and Rhythm Abdomen: Positive for: Normal Bowel Sounds. Negative for: Tenderness, Distention Breast/Axillary: Positive for: Other (left breast mass bleeding through dressing ) Upper Extremity: Positive for: Other (atrophy, poor pulses b/l radial and DP/PT) Skin: Positive for: Warm - Medications Active Medications: Active Medications Generic Name Dose Route Start Last Admin Trade Name Freq PRN Reason Stop Dose Admin Acetaminophen 650 mg 04/07/17 21:25 Tylenol 325mg Tab PO Q4 PRN Pain, Mild (1-3) Ferrous Sulfate 300 mg 04/08/17 10:00 Feosol Liq PO BID DANNA Vancomycin/Sodium Chloride 1 gm in 200 mls @ 166.7 mls/hr 04/06/17 10:00 16:04 Vancomycin 1 Gm/Ns 200 Ml IVPB 04/11/17 10:01 Not Given Q24H DANNA Cefepime HCl 1 gm in 50 mls @ 100 mls/hr 04/06/17 12:00 04/08/17 00:30 Maxipime Iv 1 Gm Premix IVPB 100 mls/hr Q12H DANNA Administration Lactated Ringer's 1,000 mls @ 105 mls/hr 04/06/17 16:30 04/08/17 07:38 Lactated Ringer's IV 105 mls/hr .[id number] DANNA Administration Norepinephrine Bitartrate 4 mg 254 mls @ 15.24 mls/hr 04/07/17 09:55 / Dextrose IV .[id number] PRN TITRATE PER MD ORDER Protocol 4 MCG/MIN Insulin Human Regular 0 unit 04/06/17 06:00 04/08/17 09:11 Novolin R SC Not Given Q6 DANNA Protocol Morphine Sulfate 2 mg 04/07/17 21:25 04/07/17 21:39 Morphine IVP 2 mg Q4 PRN Administration Pain, moderate (4-7) Morphine Sulfate 4 mg 04/07/17 21:26 Morphine IV Q4 PRN Pain, severe (8-10) Ondansetron HCl 8 mg 04/05/17 19:34 Zofran Odt PO Q8H PRN Nausea/Vomiting Pantoprazole Sodium 40 mg 04/06/17 10:00 04/08/17 09:28 Protonix Ec Tab PO Not Given DAILY DANNA Potassium Phos/Sodium Phos 1 pkt 04/07/17 08:00 04/08/17 09:24 Neutra-Phos PO 1 pkt BIDCC DANNA Administration Saccharomyces Boulardii 250 mg 04/06/17 10:00 04/08/17 09:27 Florastor PO 250 mg DAILY DANNA Administration - Patient Studies Lab Studies: Microbiology Studies 04/06/17 00:30 Blood Culture - Preliminary Blood NO GROWTH AFTER 48 HOURS 04/06/17 00:30 Blood Culture - Preliminary Blood NO GROWTH AFTER 48 HOURS 04/05/17 23:30 MRSA Culture (Admit) - Final Nose MRSA NOT DETECTED Lab Studies 04/08/17 04/08/17 04/08/17 Range/Units 08:32 06:35 06:35 WBC 8.9 9.5 (4.8-10.8) K/uL RBC 2.27 L 2.31 L (3.80-5.20) Mil/uL Hgb 6.8 L 6.9 L D (11.0-16.0) g/dL Hct 19.3 L 19.6 L (34.0-47.0) % MCV 84.9 84.8 (81.0-99.0) fL MCH 29.8 30.1 (27.0-31.0) pg MCHC 35.1 35.4 (33.0-37.0) g/dL RDW 14.7 H 14.9 H (11.5-14.5) % Plt Count 68 L 65 L (130-400) K/uL MPV 7.6 7.8 (7.2-11.7) fL Neut % (Auto) 88.6 H 91.0 H (50.0-75.0) % Lymph % (Auto) 7.0 L 6.0 L (20.0-40.0) % [place] % (Auto) 4.4 3.0 (0.0-10.0) % Eos % (Auto) 0.0 0.0 (0.0-4.0) % Baso % (Auto) 0.0 0.0 (0.0-2.0) % Neut # 7.8 H 8.6 H (1.8-7.0) K/uL Lymph # 0.6 L 0.6 L (1.0-4.3) K/uL [place] # 0.4 0.3 (0.0-0.8) K/uL Eos # 0.0 0.0 (0.0-0.7) K/uL Baso # 0.0 0.0 (0.0-0.2) K/uL Neutrophils % (Manual) 91 H (50-75) % Band Neutrophils % 2 (0-2) % Lymphocytes % (Manual) 4 L (20-40) % Monocytes % (Manual) 3 (0-10) % Nucleated RBC % (0-0) % Differential Comment Platelet Estimate Normal (NORMAL) Polychromasia Slight Hypochromasia (manual) Slight Poikilocytosis (manual Basophilic Stippling Slight Anisocytosis (manual) Slight Ovalocytes PT (9.7-12.2) SECONDS INR APTT (21-34) SECONDS Puncture Site pCO2 (35-45) mm/Hg pO2 (30-55) mm/Hg HCO3 (21-28) mmol/L ABG pH (7.35-7.45) ABG Total CO2 (22-28) mmol/L ABG O2 Saturation (95-98) % ABG Base Excess (-2.0-3.0) mmol/L ABG Hemoglobin (11.7-17.4) g/dL ABG Carboxyhemoglobin (0.5-1.5) % POC ABG HHb (Measured) (0.0-5.0) % ABG Methemoglobin (0.0-3.0) % Oswaldo Test VBG pH (7.32-7.43) VBG pCO2 (40-60) mmHg VBG HCO3 mmol/L VBG Total CO2 (22-28) mmol/L VBG O2 Sat (Calc) (40-65) % VBG Base Excess (0.0-2.0) mmol/L VBG Potassium (3.6-5.2) mmol/L A-a O2 Difference mm/Hg Respiratory Index Hgb O2 Saturation (95.0-98.0) % Glucose (65-105) mg/dl Lactate (0.7-2.1) mmol/L FiO2 % Crit Value Called To Crit Value Called By Crit Value Read Back Blood Gas Notified Time Sodium 138 (132-148) mmol/L Potassium 2.1 L* D (3.6-5.2) mmol/L Chloride 97 L (98-107) mmol/L Carbon Dioxide 28 (22-30) mmol/L Anion Gap 15 (10-20) BUN 8 (7-17) mg/dL Creatinine 0.5 L (0.7-1.2) mg/dL Est GFR ( Amer) > 60 Est GFR (Non-Af Amer) > 60 POC Glucose (mg/dL) (65-110) mg/dL Random Glucose 124 H (65-105) mg/dL Calcium 7.6 L (8.6-10.4) mg/dl Phosphorus 3.1 (2.5-4.5) mg/dL Magnesium 1.4 L (1.6-2.3) mg/dL Total Bilirubin 1.6 H (0.2-1.3) mg/dL AST 23 (14-36) U/L ALT 27 (9-52) U/L Alkaline Phosphatase 50 (38-126) U/L Total Protein 4.7 L (6.3-8.3) g/dL Albumin 2.6 L D (3.5-5.0) g/dL Globulin 2.2 (2.2-3.9) gm/dL Albumin/Globulin Ratio 1.2 (1.0-2.1) Venous Blood Potassium (3.6-5.2) mmol/L Blood Type Antibody Screen Antibody Identification 04/07/17 04/07/17 04/07/17 Range/Units 23:46 21:11 17:29 WBC 14.8 H (4.8-10.8) K/uL RBC 3.31 L (3.80-5.20) Mil/uL Hgb 9.7 L D (11.0-16.0) g/dL Hct 28.0 L (34.0-47.0) % MCV 84.6 D (81.0-99.0) fL MCH 29.2 (27.0-31.0) pg MCHC 34.5 (33.0-37.0) g/dL RDW 14.8 H (11.5-14.5) % Plt Count 57 L D (130-400) K/uL MPV 7.4 (7.2-11.7) fL Neut % (Auto) 95.7 H (50.0-75.0) % Lymph % (Auto) 2.5 L (20.0-40.0) % [place] % (Auto) 1.7 (0.0-10.0) % Eos % (Auto) 0.0 (0.0-4.0) % Baso % (Auto) 0.1 (0.0-2.0) % Neut # 14.1 H (1.8-7.0) K/uL Lymph # 0.4 L (1.0-4.3) K/uL [place] # 0.3 (0.0-0.8) K/uL Eos # 0.0 (0.0-0.7) K/uL Baso # 0.0 (0.0-0.2) K/uL Neutrophils % (Manual) 96 H (50-75) % Band Neutrophils % (0-2) % Lymphocytes % (Manual) 3 L (20-40) % Monocytes % (Manual) 1 (0-10) % Nucleated RBC % (0-0) % Differential Comment Platelet Estimate Markedly decreased L (NORMAL) Polychromasia Hypochromasia (manual) Poikilocytosis (manual Slight Basophilic Stippling Anisocytosis (manual) Slight Ovalocytes Slight PT (9.7-12.2) SECONDS INR APTT (21-34) SECONDS Puncture Site pCO2 (35-45) mm/Hg pO2 (30-55) mm/Hg HCO3 (21-28) mmol/L ABG pH (7.35-7.45) ABG Total CO2 (22-28) mmol/L ABG O2 Saturation (95-98) % ABG Base Excess (-2.0-3.0) mmol/L ABG Hemoglobin (11.7-17.4) g/dL ABG Carboxyhemoglobin (0.5-1.5) % POC ABG HHb (Measured) (0.0-5.0) % ABG Methemoglobin (0.0-3.0) % Oswaldo Test VBG pH (7.32-7.43) VBG pCO2 (40-60) mmHg VBG HCO3 mmol/L VBG Total CO2 (22-28) mmol/L VBG O2 Sat (Calc) (40-65) % VBG Base Excess (0.0-2.0) mmol/L VBG Potassium (3.6-5.2) mmol/L A-a O2 Difference mm/Hg Respiratory Index Hgb O2 Saturation (95.0-98.0) % Glucose (65-105) mg/dl Lactate (0.7-2.1) mmol/L FiO2 % Crit Value Called To Crit Value Called By Crit Value Read Back Blood Gas Notified Time Sodium (132-148) mmol/L Potassium (3.6-5.2) mmol/L Chloride (98-107) mmol/L Carbon Dioxide (22-30) mmol/L Anion Gap (10-20) BUN (7-17) mg/dL Creatinine (0.7-1.2) mg/dL Est GFR ( Amer) Est GFR (Non-Af Amer) POC Glucose (mg/dL) 175 H 173 H (65-110) mg/dL Random Glucose (65-105) mg/dL Calcium (8.6-10.4) mg/dl Phosphorus (2.5-4.5) mg/dL Magnesium (1.6-2.3) mg/dL Total Bilirubin (0.2-1.3) mg/dL AST (14-36) U/L ALT (9-52) U/L Alkaline Phosphatase (38-126) U/L Total Protein (6.3-8.3) g/dL Albumin (3.5-5.0) g/dL Globulin (2.2-3.9) gm/dL Albumin/Globulin Ratio (1.0-2.1) Venous Blood Potassium (3.6-5.2) mmol/L Blood Type Antibody Screen Antibody Identification 04/07/17 04/07/17 04/07/17 Range/Units 16:10 14:31 14:22 WBC (4.8-10.8) K/uL RBC (3.80-5.20) Mil/uL Hgb (11.0-16.0) g/dL Hct (34.0-47.0) % MCV (81.0-99.0) fL MCH (27.0-31.0) pg MCHC (33.0-37.0) g/dL RDW (11.5-14.5) % Plt Count (130-400) K/uL MPV (7.2-11.7) fL Neut % (Auto) (50.0-75.0) % Lymph % (Auto) (20.0-40.0) % [place] % (Auto) (0.0-10.0) % Eos % (Auto) (0.0-4.0) % Baso % (Auto) (0.0-2.0) % Neut # (1.8-7.0) K/uL Lymph # (1.0-4.3) K/uL [place] # (0.0-0.8) K/uL Eos # (0.0-0.7) K/uL Baso # (0.0-0.2) K/uL Neutrophils % (Manual) (50-75) % Band Neutrophils % (0-2) % Lymphocytes % (Manual) (20-40) % Monocytes % (Manual) (0-10) % Nucleated RBC % (0-0) % Differential Comment Platelet Estimate (NORMAL) Polychromasia Hypochromasia (manual) Poikilocytosis (manual Basophilic Stippling Anisocytosis (manual) Ovalocytes PT (9.7-12.2) SECONDS INR APTT (21-34) SECONDS Puncture Site Rra pCO2 45 (35-45) mm/Hg pO2 258 H 373 H (30-55) mm/Hg HCO3 23.3 (21-28) mmol/L ABG pH 7.33 L (7.35-7.45) ABG Total CO2 25.1 (22-28) mmol/L ABG O2 Saturation 99.6 H (95-98) % ABG Base Excess -2.1 L (-2.0-3.0) mmol/L ABG Hemoglobin 6.0 L (11.7-17.4) g/dL ABG Carboxyhemoglobin 2.6 H (0.5-1.5) % POC ABG HHb (Measured) 0.4 (0.0-5.0) % ABG Methemoglobin 1.5 (0.0-3.0) % Oswaldo Test Pos VBG pH 7.25 L (7.32-7.43) VBG pCO2 41 (40-60) mmHg VBG HCO3 18.1 mmol/L VBG Total CO2 19.3 L (22-28) mmol/L VBG O2 Sat (Calc) 100.0 H (40-65) % VBG Base Excess -8.8 L (0.0-2.0) mmol/L VBG Potassium 2.1 L* (3.6-5.2) mmol/L A-a O2 Difference 399.0 mm/Hg Respiratory Index 1.5 Hgb O2 Saturation 95.5 (95.0-98.0) % Glucose 127 H (65-105) mg/dl Lactate 1.1 (0.7-2.1) mmol/L FiO2 100.0 % Crit Value Called To electrode turner and finishermichael crum Crit Value Called By Jb rangel commercial account executive Crit Value Read Back Y Y Blood Gas Notified Time 1620 1440 Sodium 145.0 136 (132-148) mmol/L Potassium 2.9 L (3.6-5.2) mmol/L Chloride 121.0 H 107 (98-107) mmol/L Carbon Dioxide 22 (22-30) mmol/L Anion Gap 10 (10-20) BUN 10 (7-17) mg/dL Creatinine 0.3 L (0.7-1.2) mg/dL Est GFR ( Amer) > 60 Est GFR (Non-Af Amer) > 60 POC Glucose (mg/dL) (65-110) mg/dL Random Glucose 147 H (65-105) mg/dL Calcium 7.5 L (8.6-10.4) mg/dl Phosphorus (2.5-4.5) mg/dL Magnesium (1.6-2.3) mg/dL Total Bilirubin 1.4 H (0.2-1.3) mg/dL AST 19 (14-36) U/L ALT 33 (9-52) U/L Alkaline Phosphatase 35 L D (38-126) U/L Total Protein 3.3 L (6.3-8.3) g/dL Albumin 1.6 L (3.5-5.0) g/dL Globulin 1.7 L (2.2-3.9) gm/dL Albumin/Globulin Ratio 1.0 (1.0-2.1) Venous Blood Potassium 2.1 L* (3.6-5.2) mmol/L Blood Type Antibody Screen Antibody Identification 04/07/17 04/07/17 04/07/17 Range/Units 14:22 14:22 11:21 WBC 10.4 (4.8-10.8) K/uL RBC 2.33 L (3.80-5.20) Mil/uL Hgb 7.1 L D (11.0-16.0) g/dL Hct 20.6 L (34.0-47.0) % MCV 88.3 (81.0-99.0) fL MCH 30.7 (27.0-31.0) pg MCHC 34.7 (33.0-37.0) g/dL RDW 15.2 H (11.5-14.5) % Plt Count 97 L D (130-400) K/uL MPV 7.6 (7.2-11.7) fL Neut % (Auto) 89.8 H (50.0-75.0) % Lymph % (Auto) 7.6 L (20.0-40.0) % [place] % (Auto) 2.4 (0.0-10.0) % Eos % (Auto) 0.1 (0.0-4.0) % Baso % (Auto) 0.1 (0.0-2.0) % Neut # 9.3 H (1.8-7.0) K/uL Lymph # 0.8 L (1.0-4.3) K/uL [place] # 0.2 (0.0-0.8) K/uL Eos # 0.0 (0.0-0.7) K/uL Baso # 0.0 (0.0-0.2) K/uL Neutrophils % (Manual) 78 H (50-75) % Band Neutrophils % 14 H* (0-2) % Lymphocytes % (Manual) 5 L (20-40) % Monocytes % (Manual) 3 (0-10) % Nucleated RBC % 1 H (0-0) % Differential Comment Platelet Estimate Decreased L (NORMAL) Polychromasia Slight Hypochromasia (manual) Slight Poikilocytosis (manual Basophilic Stippling Anisocytosis (manual) Slight Ovalocytes PT 15.4 H (9.7-12.2) SECONDS INR 1.4 APTT 34 D (21-34) SECONDS Puncture Site pCO2 (35-45) mm/Hg pO2 (30-55) mm/Hg HCO3 (21-28) mmol/L ABG pH (7.35-7.45) ABG Total CO2 (22-28) mmol/L ABG O2 Saturation (95-98) % ABG Base Excess (-2.0-3.0) mmol/L ABG Hemoglobin (11.7-17.4) g/dL ABG Carboxyhemoglobin (0.5-1.5) % POC ABG HHb (Measured) (0.0-5.0) % ABG Methemoglobin (0.0-3.0) % Oswaldo Test VBG pH (7.32-7.43) VBG pCO2 (40-60) mmHg VBG HCO3 mmol/L VBG Total CO2 (22-28) mmol/L VBG O2 Sat (Calc) (40-65) % VBG Base Excess (0.0-2.0) mmol/L VBG Potassium (3.6-5.2) mmol/L A-a O2 Difference mm/Hg Respiratory Index Hgb O2 Saturation (95.0-98.0) % Glucose (65-105) mg/dl Lactate (0.7-2.1) mmol/L FiO2 % Crit Value Called To Crit Value Called By Crit Value Read Back Blood Gas Notified Time Sodium (132-148) mmol/L Potassium (3.6-5.2) mmol/L Chloride (98-107) mmol/L Carbon Dioxide (22-30) mmol/L Anion Gap (10-20) BUN (7-17) mg/dL Creatinine (0.7-1.2) mg/dL Est GFR ( Amer) Est GFR (Non-Af Amer) POC Glucose (mg/dL) 135 H (65-110) mg/dL Random Glucose (65-105) mg/dL Calcium (8.6-10.4) mg/dl Phosphorus (2.5-4.5) mg/dL Magnesium (1.6-2.3) mg/dL Total Bilirubin (0.2-1.3) mg/dL AST (14-36) U/L ALT (9-52) U/L Alkaline Phosphatase (38-126) U/L Total Protein (6.3-8.3) g/dL Albumin (3.5-5.0) g/dL Globulin (2.2-3.9) gm/dL Albumin/Globulin Ratio (1.0-2.1) Venous Blood Potassium (3.6-5.2) mmol/L Blood Type Antibody Screen Antibody Identification 04/06/17 Range/Units 01:00 WBC (4.8-10.8) K/uL RBC (3.80-5.20) Mil/uL Hgb (11.0-16.0) g/dL Hct (34.0-47.0) % MCV (81.0-99.0) fL MCH (27.0-31.0) pg MCHC (33.0-37.0) g/dL RDW (11.5-14.5) % Plt Count (130-400) K/uL MPV (7.2-11.7) fL Neut % (Auto) (50.0-75.0) % Lymph % (Auto) (20.0-40.0) % [place] % (Auto) (0.0-10.0) % Eos % (Auto) (0.0-4.0) % Baso % (Auto) (0.0-2.0) % Neut # (1.8-7.0) K/uL Lymph # (1.0-4.3) K/uL [place] # (0.0-0.8) K/uL Eos # (0.0-0.7) K/uL Baso # (0.0-0.2) K/uL Neutrophils % (Manual) (50-75) % Band Neutrophils % (0-2) % Lymphocytes % (Manual) (20-40) % Monocytes % (Manual) (0-10) % Nucleated RBC % (0-0) % Differential Comment Platelet Estimate (NORMAL) Polychromasia Hypochromasia (manual) Poikilocytosis (manual Basophilic Stippling Anisocytosis (manual) Ovalocytes PT (9.7-12.2) SECONDS INR APTT (21-34) SECONDS Puncture Site pCO2 (35-45) mm/Hg pO2 (30-55) mm/Hg HCO3 (21-28) mmol/L ABG pH (7.35-7.45) ABG Total CO2 (22-28) mmol/L ABG O2 Saturation (95-98) % ABG Base Excess (-2.0-3.0) mmol/L ABG Hemoglobin (11.7-17.4) g/dL ABG Carboxyhemoglobin (0.5-1.5) % POC ABG HHb (Measured) (0.0-5.0) % ABG Methemoglobin (0.0-3.0) % Oswaldo Test VBG pH (7.32-7.43) VBG pCO2 (40-60) mmHg VBG HCO3 mmol/L VBG Total CO2 (22-28) mmol/L VBG O2 Sat (Calc) (40-65) % VBG Base Excess (0.0-2.0) mmol/L VBG Potassium (3.6-5.2) mmol/L A-a O2 Difference mm/Hg Respiratory Index Hgb O2 Saturation (95.0-98.0) % Glucose (65-105) mg/dl Lactate (0.7-2.1) mmol/L FiO2 % Crit Value Called To Crit Value Called By Crit Value Read Back Blood Gas Notified Time Sodium (132-148) mmol/L Potassium (3.6-5.2) mmol/L Chloride (98-107) mmol/L Carbon Dioxide (22-30) mmol/L Anion Gap (10-20) BUN (7-17) mg/dL Creatinine (0.7-1.2) mg/dL Est GFR ( Amer) Est GFR (Non-Af Amer) POC Glucose (mg/dL) (65-110) mg/dL Random Glucose (65-105) mg/dL Calcium (8.6-10.4) mg/dl Phosphorus (2.5-4.5) mg/dL Magnesium (1.6-2.3) mg/dL Total Bilirubin (0.2-1.3) mg/dL AST (14-36) U/L ALT (9-52) U/L Alkaline Phosphatase (38-126) U/L Total Protein (6.3-8.3) g/dL Albumin (3.5-5.0) g/dL Globulin (2.2-3.9) gm/dL Albumin/Globulin Ratio (1.0-2.1) Venous Blood Potassium (3.6-5.2) mmol/L Blood Type B POSITIVE Antibody Screen Positive Antibody Identification Anti C Laboratory Results - last 24 hr 04/06/17 04/07/17 04/07/17 01:00 11:21 14:22 WBC 10.4 RBC 2.33 L Hgb 7.1 L D Hct 20.6 L MCV 88.3 MCH 30.7 MCHC 34.7 RDW 15.2 H Plt Count 97 L D MPV 7.6 Neut % (Auto) 89.8 H Lymph % (Auto) 7.6 L [place] % (Auto) 2.4 Eos % (Auto) 0.1 Baso % (Auto) 0.1 Neut # 9.3 H Lymph # 0.8 L [place] # 0.2 Eos # 0.0 Baso # 0.0 Neutrophils % (Manual) 78 H Band Neutrophils % 14 H* Lymphocytes % (Manual) 5 L Monocytes % (Manual) 3 Nucleated RBC % 1 H Differential Comment Platelet Estimate Decreased L Polychromasia Slight Hypochromasia (manual) Slight Poikilocytosis (manual Basophilic Stippling Anisocytosis (manual) Slight Ovalocytes PT INR APTT Puncture Site pCO2 pO2 HCO3 ABG pH ABG Total CO2 ABG O2 Saturation ABG Base Excess ABG Hemoglobin ABG Carboxyhemoglobin POC ABG HHb (Measured) ABG Methemoglobin Oswaldo Test VBG pH VBG pCO2 VBG HCO3 VBG Total CO2 VBG O2 Sat (Calc) VBG Base Excess VBG Potassium A-a O2 Difference Respiratory Index Hgb O2 Saturation Glucose Lactate FiO2 Crit Value Called To Crit Value Called By Crit Value Read Back Blood Gas Notified Time Sodium Potassium Chloride Carbon Dioxide Anion Gap BUN Creatinine Est GFR ( Amer) Est GFR (Non-Af Amer) POC Glucose (mg/dL) 135 H Random Glucose Calcium Phosphorus Magnesium Total Bilirubin AST ALT Alkaline Phosphatase Total Protein Albumin Globulin Albumin/Globulin Ratio Venous Blood Potassium Blood Type B POSITIVE Antibody Screen Positive Antibody Identification Anti C 04/07/17 04/07/17 04/07/17 14:22 14:22 14:31 WBC RBC Hgb Hct MCV MCH MCHC RDW Plt Count MPV Neut % (Auto) Lymph % (Auto) [place] % (Auto) Eos % (Auto) Baso % (Auto) Neut # Lymph # [place] # Eos # Baso # Neutrophils % (Manual) Band Neutrophils % Lymphocytes % (Manual) Monocytes % (Manual) Nucleated RBC % Differential Comment Platelet Estimate Polychromasia Hypochromasia (manual) Poikilocytosis (manual Basophilic Stippling Anisocytosis (manual) Ovalocytes PT 15.4 H INR 1.4 APTT 34 D Puncture Site pCO2 pO2 373 H HCO3 ABG pH ABG Total CO2 ABG O2 Saturation ABG Base Excess ABG Hemoglobin ABG Carboxyhemoglobin POC ABG HHb (Measured) ABG Methemoglobin Oswaldo Test VBG pH 7.25 L VBG pCO2 41 VBG HCO3 18.1 VBG Total CO2 19.3 L VBG O2 Sat (Calc) 100.0 H VBG Base Excess -8.8 L VBG Potassium 2.1 L* A-a O2 Difference Respiratory Index Hgb O2 Saturation Glucose 127 H Lactate 1.1 FiO2 Crit Value Called To Dr crum Crit Value Called By Sylwia rangel commercial account executive Crit Value Read Back Y Blood Gas Notified Time 1440 Sodium 136 145.0 Potassium 2.9 L Chloride 107 121.0 H Carbon Dioxide 22 Anion Gap 10 BUN 10 Creatinine 0.3 L Est GFR ( Amer) > 60 Est GFR (Non-Af Amer) > 60 POC Glucose (mg/dL) Random Glucose 147 H Calcium 7.5 L Phosphorus Magnesium Total Bilirubin 1.4 H AST 19 ALT 33 Alkaline Phosphatase 35 L D Total Protein 3.3 L Albumin 1.6 L Globulin 1.7 L Albumin/Globulin Ratio 1.0 Venous Blood Potassium 2.1 L* Blood Type Antibody Screen Antibody Identification 04/07/17 04/07/17 04/07/17 16:10 17:29 21:11 WBC 14.8 H RBC 3.31 L Hgb 9.7 L D Hct 28.0 L MCV 84.6 D MCH 29.2 MCHC 34.5 RDW 14.8 H Plt Count 57 L D MPV 7.4 Neut % (Auto) 95.7 H Lymph % (Auto) 2.5 L [place] % (Auto) 1.7 Eos % (Auto) 0.0 Baso % (Auto) 0.1 Neut # 14.1 H Lymph # 0.4 L [place] # 0.3 Eos # 0.0 Baso # 0.0 Neutrophils % (Manual) 96 H Band Neutrophils % Lymphocytes % (Manual) 3 L Monocytes % (Manual) 1 Nucleated RBC % Differential Comment Platelet Estimate Markedly decreased L Polychromasia Hypochromasia (manual) Poikilocytosis (manual Slight Basophilic Stippling Anisocytosis (manual) Slight Ovalocytes Slight PT INR APTT Puncture Site Rra pCO2 45 pO2 258 H HCO3 23.3 ABG pH 7.33 L ABG Total CO2 25.1 ABG O2 Saturation 99.6 H ABG Base Excess -2.1 L ABG Hemoglobin 6.0 L ABG Carboxyhemoglobin 2.6 H POC ABG HHb (Measured) 0.4 ABG Methemoglobin 1.5 Oswaldo Test Pos VBG pH VBG pCO2 VBG HCO3 VBG Total CO2 VBG O2 Sat (Calc) VBG Base Excess VBG Potassium A-a O2 Difference 399.0 Respiratory Index 1.5 Hgb O2 Saturation 95.5 Glucose Lactate FiO2 100.0 Crit Value Called To electrode turner and finishermichael rios Crit Value Called By Jb atm Crit Value Read Back Y Blood Gas Notified Time 1620 Sodium Potassium Chloride Carbon Dioxide Anion Gap BUN Creatinine Est GFR ( Amer) Est GFR (Non-Af Amer) POC Glucose (mg/dL) 173 H Random Glucose Calcium Phosphorus Magnesium Total Bilirubin AST ALT Alkaline Phosphatase Total Protein Albumin Globulin Albumin/Globulin Ratio Venous Blood Potassium Blood Type Antibody Screen Antibody Identification 04/07/17 04/08/17 04/08/17 23:46 06:35 06:35 WBC 9.5 RBC 2.31 L Hgb 6.9 L D Hct 19.6 L MCV 84.8 MCH 30.1 MCHC 35.4 RDW 14.9 H Plt Count 65 L MPV 7.8 Neut % (Auto) 91.0 H Lymph % (Auto) 6.0 L [place] % (Auto) 3.0 Eos % (Auto) 0.0 Baso % (Auto) 0.0 Neut # 8.6 H Lymph # 0.6 L [place] # 0.3 Eos # 0.0 Baso # 0.0 Neutrophils % (Manual) 91 H Band Neutrophils % 2 Lymphocytes % (Manual) 4 L Monocytes % (Manual) 3 Nucleated RBC % Differential Comment Platelet Estimate Normal Polychromasia Slight Hypochromasia (manual) Slight Poikilocytosis (manual Basophilic Stippling Slight Anisocytosis (manual) Slight Ovalocytes PT INR APTT Puncture Site pCO2 pO2 HCO3 ABG pH ABG Total CO2 ABG O2 Saturation ABG Base Excess ABG Hemoglobin ABG Carboxyhemoglobin POC ABG HHb (Measured) ABG Methemoglobin Oswaldo Test VBG pH VBG pCO2 VBG HCO3 VBG Total CO2 VBG O2 Sat (Calc) VBG Base Excess VBG Potassium A-a O2 Difference Respiratory Index Hgb O2 Saturation Glucose Lactate FiO2 Crit Value Called To Crit Value Called By Crit Value Read Back Blood Gas Notified Time Sodium 138 Potassium 2.1 L* D Chloride 97 L Carbon Dioxide 28 Anion Gap 15 BUN 8 Creatinine 0.5 L Est GFR ( Amer) > 60 Est GFR (Non-Af Amer) > 60 POC Glucose (mg/dL) 175 H Random Glucose 124 H Calcium 7.6 L Phosphorus 3.1 Magnesium 1.4 L Total Bilirubin 1.6 H AST 23 ALT 27 Alkaline Phosphatase 50 Total Protein 4.7 L Albumin 2.6 L D Globulin 2.2 Albumin/Globulin Ratio 1.2 Venous Blood Potassium Blood Type Antibody Screen Antibody Identification 04/08/17 08:32 WBC 8.9 RBC 2.27 L Hgb 6.8 L Hct 19.3 L MCV 84.9 MCH 29.8 MCHC 35.1 RDW 14.7 H Plt Count 68 L MPV 7.6 Neut % (Auto) 88.6 H Lymph % (Auto) 7.0 L [place] % (Auto) 4.4 Eos % (Auto) 0.0 Baso % (Auto) 0.0 Neut # 7.8 H Lymph # 0.6 L [place] # 0.4 Eos # 0.0 Baso # 0.0 Neutrophils % (Manual) Band Neutrophils % Lymphocytes % (Manual) Monocytes % (Manual) Nucleated RBC % Differential Comment Platelet Estimate Polychromasia Hypochromasia (manual) Poikilocytosis (manual Basophilic Stippling Anisocytosis (manual) Ovalocytes PT INR APTT Puncture Site pCO2 pO2 HCO3 ABG pH ABG Total CO2 ABG O2 Saturation ABG Base Excess ABG Hemoglobin ABG Carboxyhemoglobin POC ABG HHb (Measured) ABG Methemoglobin Oswaldo Test VBG pH VBG pCO2 VBG HCO3 VBG Total CO2 VBG O2 Sat (Calc) VBG Base Excess VBG Potassium A-a O2 Difference Respiratory Index Hgb O2 Saturation Glucose Lactate FiO2 Crit Value Called To Crit Value Called By Crit Value Read Back Blood Gas Notified Time Sodium Potassium Chloride Carbon Dioxide Anion Gap BUN Creatinine Est GFR ( Amer) Est GFR (Non-Af Amer) POC Glucose (mg/dL) Random Glucose Calcium Phosphorus Magnesium Total Bilirubin AST ALT Alkaline Phosphatase Total Protein Albumin Globulin Albumin/Globulin Ratio Venous Blood Potassium Blood Type Antibody Screen Antibody Identification Fingerstick Blood Sugar Results: 175 Critical Care Progress Note - Nutrition Nutrition: Nutrition Category Date Time Status Liquid Diet [DIET] Diets 11/18/17 Breakfast Active
[2017-04-08] MEDS: Vancomycin 1 gm/NS 200 ml 1 GM/200 ML BAG IVPB SCH (09:56)
[2017-04-08] MEDS ORDERED: Ferrous Sulfate 300 mg/5 mL Liq UD PO SCH (10:00)
[2017-04-08] MEDS: Pantoprazole 40 mg Susp UD PO SCH (10:00)
--- NOTE | 2017-04-08 16:08 | CP.PCM.PN ---
Subjective - Date & Time of Evaluation Date of Evaluation: 04/08/17 Time of Evaluation: 12:20 - Subjective Subjective: clinically same Objective - Vital Signs/Intake and Output Vital Signs (last 24 hours): Temp Pulse Resp BP Pulse Ox 98.5 F 79 13 111/58 L 100 04/08/17 15:00 04/08/17 15:00 04/08/17 15:00 04/08/17 15:00 04/08/17 07:33 Intake and Output: 04/08/17 04/08/17 06:59 18:59 Intake Total 794 325 Output Total 3775 Balance -2981 325 - Medications Medications: Current Medications Acetaminophen (Tylenol 325mg Tab) 650 mg PO Q4 PRN PRN Reason: Pain, Mild (1-3) Vancomycin/Sodium Chloride (Vancomycin 1 Gm/Ns 200 Ml) 1 gm in 200 mls @ 166.7 mls/hr IVPB Q24H [facility] Stop: 04/11/17 10:01 Last Admin: 04/08/17 09:56 Dose: 166.7 mls/hr Cefepime HCl (Maxipime Iv 1 Gm Premix) 1 gm in 50 mls @ 100 mls/hr IVPB Q12H [facility] Last Admin: 04/08/17 14:34 Dose: 100 mls/hr Lactated Ringer's (Lactated Ringer's) 1,000 mls @ 105 mls/hr IV .[id number] [facility] Last Admin: 04/08/17 07:38 Dose: 105 mls/hr Insulin Human Regular (Novolin R) 0 unit SC Q6 DANNA PRN Reason: Protocol Last Admin: 04/08/17 14:12 Dose: Not Given Morphine Sulfate (Morphine) 2 mg IVP Q4 PRN PRN Reason: Pain, moderate (4-7) Last Admin: 04/07/17 21:39 Dose: 2 mg Morphine Sulfate (Morphine) 4 mg IV Q4 PRN PRN Reason: Pain, severe (8-10) Ondansetron HCl (Zofran Odt) 8 mg PO Q8H PRN PRN Reason: Nausea/Vomiting Pantoprazole Sodium (Protonix Susp) 40 mg PO DAILY [facility] Last Admin: 04/08/17 10:00 Dose: 40 mg Pantoprazole Sodium (Protonix Susp) 40 mg PO 0600 [facility] Saccharomyces Boulardii (Florastor) 250 mg PO DAILY [facility] Last Admin: 04/08/17 09:27 Dose: 250 mg - Labs Labs: 04/08/17 08:32 04/08/17 06:35 PT 15.4 SECONDS (9.7-12.2) H 04/07/17 14:22 INR 1.4 04/07/17 14:22 APTT 34 SECONDS (21-34) D 04/07/17 14:22 - Constitutional Appears: Well - Head Exam Head Exam: ATRAUMATIC, NORMAL INSPECTION, NORMOCEPHALIC - Eye Exam Eye Exam: EOMI, Normal appearance, PERRL Pupil Exam: NORMAL ACCOMODATION, PERRL - ENT Exam ENT Exam: Mucous Membranes Moist, Normal Exam - Neck Exam Neck Exam: Full ROM, Normal Inspection. absent: Lymphadenopathy - Respiratory Exam Respiratory Exam: Decreased Breath Sounds - Cardiovascular Exam Cardiovascular Exam: REGULAR RHYTHM, +S1, +S2 - GI/Abdominal Exam GI & Abdominal Exam: Soft, Diminished Bowel Sounds - Rectal Exam Rectal Exam: Deferred Assessment and Plan (1) Bleeding Status: Acute (2) Bleeding from breast Status: Acute (3) Breast cancer Status: Acute (4) DIC (disseminated intravascular coagulation) Status: Acute (5) Leukocytosis Status: Acute (6) Skin irritation Status: Acute (7) Tachycardia Status: Acute (8) Thrombocytopenia Status: Acute (9) Anemia Status: Acute (10) Anemia Status: Acute (11) Breast cancer Status: Acute (12) Breast mass, left Status: Acute (13) Chest pain Status: Acute (14) Clinical decompensation Status: Acute (15) Constipation Status: Acute (16) Invasive ductal carcinoma of breast, stage 3 Status: Acute (17) Malnutrition Status: Acute (18) 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
[2017-04-08 17:45] LABS: BASO % 0.1 % (0.0-2.0); HEMATOCRIT 22.8 % (34.0-47.0); LYMPH # 0.9 K/uL (1.0-4.3); LYMPH % 8.2 % (20.0-40.0); MEAN CELL VOLUME 76.5 fL (81.0-99.0); MEAN CORPUSCULAR HEMOGLOBIN 25.5 pg (27.0-31.0); MEAN CORPUSCULAR HGB CONC 33.3 g/dL (33.0-37.0); MEAN PLATELET VOLUME 7.2 fL (7.2-11.7); MONO # 0.6 K/uL (0.0-0.8); MONO % 5.7 % (0.0-10.0); PLATELET COUNT 90 K/uL (130-400); RED CELL DISTRIBUTION WIDTH 25.5 % (11.5-14.5)
[2017-04-08 17:54] LABS: INR 1.2
[2017-04-08 18:13] LABS: ALKALINE PHOSPHATASE 50 U/L (38-126); ALT/SGPT 34 U/L (9-52); AST/SGOT 17 U/L (14-36); BILIRUBIN,TOTAL 1.3 mg/dL (0.2-1.3); BLOOD UREA NITROGEN 8 mg/dL (7-17); CALCIUM 7.3 mg/dl (8.6-10.4); CARBON DIOXIDE 25 mmol/L (22-30); CHLORIDE 98 mmol/L (98-107); GFR AFRICAN-AMERICAN > 60; GLUCOSE,RANDOM 100 mg/dL (65-105); POTASSIUM 2.5 mmol/L (3.6-5.2); SODIUM 136 mmol/L (132-148); TOTAL PROTEIN 4.5 g/dL (6.3-8.3)
[2017-04-08 19:11] LABS: LARGE PLATELETS PRESENT; NEUTROPHIL 85 % (50-75); TOTAL CELLS COUNTED 100
--- NOTE | 2017-04-08 21:31 | CP.PCM.PN ---
Subjective - Date & Time of Evaluation Date of Evaluation: 04/08/17 Time of Evaluation: 17:00 - Subjective Subjective: Feeling better post IR arterial embolization Objective - Vital Signs/Intake and Output Vital Signs (last 24 hours): Temp Pulse Resp BP Pulse Ox 98.5 F 67 19 114/54 L 100 04/08/17 19:34 04/08/17 20:00 04/08/17 20:00 04/08/17 20:00 04/08/17 20:00 Intake and Output: 04/08/17 04/09/17 18:59 06:59 Intake Total 1015 0 Output Total 540 45 Balance 475 -45 - Medications Medications: Current Medications Acetaminophen (Tylenol 325mg Tab) 650 mg PO Q4 PRN PRN Reason: Pain, Mild (1-3) Vancomycin/Sodium Chloride (Vancomycin 1 Gm/Ns 200 Ml) 1 gm in 200 mls @ 166.7 mls/hr IVPB Q24H [facility] Stop: 04/11/17 10:01 Last Admin: 04/08/17 09:56 Dose: 166.7 mls/hr Cefepime HCl (Maxipime Iv 1 Gm Premix) 1 gm in 50 mls @ 100 mls/hr IVPB Q12H [facility] Last Admin: 04/08/17 14:34 Dose: 100 mls/hr Insulin Human Regular (Novolin R) 0 unit SC Q6 [facility]AN[facility] PRN Reason: Protocol Last Admin: 04/08/17 18:00 Dose: Not Given Morphine Sulfate (Morphine) 2 mg IVP Q4 PRN PRN Reason: Pain, moderate (4-7) Last Admin: 04/07/17 21:39 Dose: 2 mg Morphine Sulfate (Morphine) 4 mg IV Q4 PRN PRN Reason: Pain, severe (8-10) Ondansetron HCl (Zofran Odt) 8 mg PO Q8H PRN PRN Reason: Nausea/Vomiting Pantoprazole Sodium (Protonix Susp) 40 mg PO DAILY [facility] Last Admin: 04/08/17 10:00 Dose: 40 mg Pantoprazole Sodium (Protonix Susp) 40 mg PO 0600 [facility] Saccharomyces Boulardii (Florastor) 250 mg PO DAILY [facility] Last Admin: 04/08/17 09:27 Dose: 250 mg - Labs Labs: 04/08/17 17:42 04/08/17 17:42 PT 13.4 SECONDS (9.7-12.2) H 04/08/17 17:42 INR 1.2 04/08/17 17:42 APTT 25 SECONDS (21-34) D 04/08/17 17:42 - Head Exam Head Exam: ATRAUMATIC - Eye Exam Eye Exam: Normal appearance - ENT Exam ENT Exam: Mucous Membranes Dry - Respiratory Exam Respiratory Exam: NORMAL BREATHING PATTERN - Cardiovascular Exam Cardiovascular Exam: +S1, +S2 - GI/Abdominal Exam GI & Abdominal Exam: Normal Bowel Sounds Assessment and Plan (1) Anemia Assessment & Plan: acute bleeding; s/p IR arterial embolization transfusion support PRN Status: Acute (2) DIC (disseminated intravascular coagulation) Assessment & Plan: dilutional coagulopathy s/p cryopercipitate and FFP Status: Acute (3) Thrombocytopenia Assessment & Plan: improved dilutional coagulopathy/DIC Status: Acute (4) Leukocytosis Assessment & Plan: on antibiotics Status: Acute (5) Breast cancer Assessment & Plan: s/p IR arterial embolization outpatient treatment if patient agreeable Status: Acute
[2017-04-09 05:45] LABS: EOS % 0.2 % (0.0-4.0); LYMPH % 8.9 % (20.0-40.0); MEAN CELL VOLUME 80.8 fL (81.0-99.0); MEAN CORPUSCULAR HEMOGLOBIN 26.9 pg (27.0-31.0); MEAN CORPUSCULAR HGB CONC 33.3 g/dL (33.0-37.0); MEAN PLATELET VOLUME 7.2 fL (7.2-11.7); MONO # 0.6 K/uL (0.0-0.8); MONO % 5.6 % (0.0-10.0); PLATELET COUNT 88 K/uL (130-400); RED CELL DISTRIBUTION WIDTH 24.5 % (11.5-14.5); WHITE BLOOD COUNT 11.5 K/uL (4.8-10.8)
[2017-04-09 06:27] LABS: ALB/GLOB RATIO 0.7 (1.0-2.1); ALKALINE PHOSPHATASE 53 U/L (38-126); ALT/SGPT 32 U/L (9-52); AST/SGOT 18 U/L (14-36); BILIRUBIN,TOTAL 0.8 mg/dL (0.2-1.3); BLOOD UREA NITROGEN 6 mg/dL (7-17); CALCIUM 7.4 mg/dl (8.6-10.4); CARBON DIOXIDE 25 mmol/L (22-30); CHLORIDE 100 mmol/L (98-107); GFR AFRICAN-AMERICAN > 60; GLUCOSE,RANDOM 64 mg/dL (65-105); MAGNESIUM 1.5 mg/dL (1.6-2.3); PHOSPHOROUS 2.1 mg/dL (2.5-4.5); POTASSIUM 3.5 mmol/L (3.6-5.2); SODIUM 134 mmol/L (132-148); TOTAL PROTEIN 5.5 g/dL (6.3-8.3)
[2017-04-09] MEDS: Pantoprazole 40 mg Susp UD PO SCH ×2 (07:30→10:10)
--- NOTE | 2017-04-09 08:26 | CP.PCM.PN ---
Subjective - Date & Time of Evaluation Date of Evaluation: 04/09/17 Time of Evaluation: 07:15 - Subjective Subjective: General Surgery- Dr. Trinidad Patient seen and examined at bedside this AM. No acute events overnight. Dressing Intact with no strikethrough. Coban still in place. Patient denies fevers, chills, shortness of breath, nausea, vomiting, diarrhea. Objective - Vital Signs/Intake and Output Vital Signs (last 24 hours): Temp Pulse Resp BP Pulse Ox 98.1 F 61 10 L 111/57 L 100 04/09/17 04:00 04/09/17 06:01 04/09/17 06:01 04/09/17 06:01 04/09/17 06:01 Intake and Output: 04/09/17 04/09/17 06:59 18:59 Intake Total 1100 Output Total 685 Balance 415 - Medications Medications: Current Medications Acetaminophen (Tylenol 325mg Tab) 650 mg PO Q4 PRN PRN Reason: Pain, Mild (1-3) Vancomycin/Sodium Chloride (Vancomycin 1 Gm/Ns 200 Ml) 1 gm in 200 mls @ 166.7 mls/hr IVPB Q24H [facility] Stop: 04/11/17 10:01 Last Admin: 04/08/17 09:56 Dose: 166.7 mls/hr Cefepime HCl (Maxipime Iv 1 Gm Premix) 1 gm in 50 mls @ 100 mls/hr IVPB Q12H [facility] Last Admin: 04/08/17 23:30 Dose: 100 mls/hr Morphine Sulfate (Morphine) 2 mg IVP Q4 PRN PRN Reason: Pain, moderate (4-7) Last Admin: 04/07/17 21:39 Dose: 2 mg Morphine Sulfate (Morphine) 4 mg IV Q4 PRN PRN Reason: Pain, severe (8-10) Ondansetron HCl (Zofran Odt) 8 mg PO Q8H PRN PRN Reason: Nausea/Vomiting Pantoprazole Sodium (Protonix Susp) 40 mg PO DAILY [facility] Last Admin: 04/08/17 10:00 Dose: 40 mg Pantoprazole Sodium (Protonix Susp) 40 mg PO 0600 [facility] Last Admin: 04/09/17 07:30 Dose: 40 mg Saccharomyces Boulardii (Florastor) 250 mg PO DAILY [facility] Last Admin: 04/08/17 09:27 Dose: 250 mg - Labs Labs: 04/09/17 05:42 04/09/17 05:42 PT 13.4 SECONDS (9.7-12.2) H 04/08/17 17:42 INR 1.2 04/08/17 17:42 APTT 25 SECONDS (21-34) D 04/08/17 17:42 - Constitutional Appears: No Acute Distress, Chronically Ill - Eye Exam Eye Exam: EOMI. absent: Scleral icterus - ENT Exam ENT Exam: Mucous Membranes Moist - Respiratory Exam Respiratory Exam: NORMAL BREATHING PATTERN. absent: Accessory Muscle Use, Respiratory Distress - Cardiovascular Exam Cardiovascular Exam: +S1, +S2. absent: Bradycardia, Tachycardia - GI/Abdominal Exam GI & Abdominal Exam: Soft. absent: Firm, Guarding, Rigid, Tenderness - Exam Additional comments: Breast exam. dressing xeroform, surgicel, abd, and coban. dressing dry and intact. - Neurological Exam Neurological Exam: Alert, Awake, Oriented x3 - Skin Skin Exam: Normal Color, Warm Assessment and Plan - Assessment and Plan (Free Text) Assessment: 51 y/ F w/ large, bleeding invasive ductal carcinoma, s/p IR embolization and jared placement POD#2 - Dressing change PRN (xeroform, surgicel, abd, coban) - pain control PRN - f/u Hg/Hct, Transfuse PRN - medical management per Critical Care - GI/ PPx - encourage IS - further recs per Dr. Amos Ma PGY1
[2017-04-09 08:46] LABS: NEUTROPHIL 88 % (50-75); TOTAL CELLS COUNTED 100
[2017-04-09] MEDS: Magnesium Sulfate 1 gm in D5W 1 GM/100 ML BAG IVPB SCH ×2 (09:43→10:11)
[2017-04-09] MEDS: Saccharomyces Boulardi 250 mg Cap PO SCH (09:43)
[2017-04-09] MEDS: Vancomycin 1 gm/NS 200 ml 1 GM/200 ML BAG IVPB SCH (09:48)
[2017-04-09] MEDS ORDERED: Potassium Phosphate 15 MMOLE in Sodium Chloride 0.9% 250 ML IVPB ONE (10:00)
[2017-04-09] MEDS: Cefepime IV 1 gm in Dextrose 1 GM/50 ML BAG IVPB SCH (11:49)
--- NOTE | 2017-04-09 12:16 | CP.CCUPN ---
CCU Subjective - Physician Review Events Since Last Encounter (Free Text): 04/09/17 12:14 Patient seen and examined in the intensive care unit. Case discussed with house staff 51-year-old female WITH large, bleeding invasive ductal carcinoma, s/p IR embolization and jared placement, status post transfusion of 6 units packed RBCs, 4 units of FFP, cryoprecipitate and platelets. No active bleeding Patient seen by surgery Patient is awake and responsive CCU Objective - Vital Signs / Intake & Output Vital Signs (Last 4 hours): Vital Signs Pulse Resp BP Pulse Ox 04/09/17 10:58 48 L 11 L 129/52 L 100 04/09/17 09:58 60 12 123/54 L 100 Intake and Output (Last 8hrs): Intake & Output 04/08/17 04/09/17 04/09/17 22:59 06:59 14:59 Intake Total 800 300 318.0 Output Total 475 390 140 Balance 325 -90 178.0 Weight 91 lb 12.8 oz Intake: Intake, IV Amount 50 300 218.0 Left Distal Port 50 250 85.0 Left Proximal Port 50 133 Femoral Oral 100 Blood Product 650 Red Blood Cells Cpd As1 325 Lr Unit [id number] Other 100 Red Blood Cells Cpd As1 50 Lr Unit [id number] Output: Urine 475 390 140 Urethral (Landry) 475 390 140 Other: # Bowel Movements 1 - Physical Exam Head: Positive for: Atraumatic, Normocephalic Mouth: Positive for: Moist Mucous Membranes Respiratory/Chest: Positive for: Clear to Auscultation, Good Air Exchange Cardiovascular: Positive for: Regular Rate and Rhythm Abdomen: Positive for: Normal Bowel Sounds. Negative for: Tenderness, Distention Breast/Axillary: Positive for: Other (left breast mass bleeding through dressing ) Upper Extremity: Positive for: Other (atrophy, poor pulses b/l radial and DP/PT) Skin: Positive for: Warm - Medications Active Medications: Active Medications Generic Name Dose Route Start Last Admin Trade Name Freq PRN Reason Stop Dose Admin Acetaminophen 650 mg 04/07/17 21:25 Tylenol 325mg Tab PO Q4 PRN Pain, Mild (1-3) Vancomycin/Sodium Chloride 1 gm in 200 mls @ 166.7 mls/hr 04/06/17 10:00 09:48 Vancomycin 1 Gm/Ns 200 Ml IVPB 04/11/17 10:01 166.7 mls/hr Q24H DANNA Administration Cefepime HCl 1 gm in 50 mls @ 100 mls/hr 04/06/17 12:00 04/09/17 11:49 Maxipime Iv 1 Gm Premix IVPB 100 mls/hr Q12H DANNA Administration Potassium Phosphate 15 mmole/ 255 mls @ 42.5 mls/hr 04/09/17 10:00 04/09/17 09:48 Sodium Chloride IVPB 04/09/17 15:59 42.5 mls/hr ONCE ONE Administration Morphine Sulfate 2 mg 04/07/17 21:25 04/07/17 21:39 Morphine IVP 2 mg Q4 PRN Administration Pain, moderate (4-7) Morphine Sulfate 4 mg 04/07/17 21:26 Morphine IV Q4 PRN Pain, severe (8-10) Ondansetron HCl 8 mg 04/05/17 19:34 Zofran Odt PO Q8H PRN Nausea/Vomiting Pantoprazole Sodium 40 mg 04/08/17 10:00 04/09/17 10:10 Protonix Susp PO Not Given DAILY [facility] Pantoprazole Sodium 40 mg 04/09/17 06:00 04/09/17 07:30 Protonix Susp PO 40 mg 0600 DANNA Administration Saccharomyces Boulardii 250 mg 04/06/17 10:00 04/09/17 09:43 Florastor PO 250 mg DAILY DANNA Administration - Patient Studies Lab Studies: Microbiology Studies 04/06/17 00:30 Blood Culture - Preliminary Blood NO GROWTH AFTER 3 DAYS 04/06/17 00:30 Blood Culture - Preliminary Blood NO GROWTH AFTER 3 DAYS Lab Studies 04/09/17 04/09/17 04/08/17 Range/Units 05:42 05:42 17:48 WBC 11.5 H (4.8-10.8) K/uL RBC 3.71 L (3.80-5.20) Mil/uL Hgb 10.0 L D (11.0-16.0) g/dL Hct 30.0 L (34.0-47.0) % MCV 80.8 L D (81.0-99.0) fL MCH 26.9 L (27.0-31.0) pg MCHC 33.3 (33.0-37.0) g/dL RDW 24.5 H (11.5-14.5) % Plt Count 88 L (130-400) K/uL MPV 7.2 (7.2-11.7) fL Neut % (Auto) 85.3 H (50.0-75.0) % Lymph % (Auto) 8.9 L (20.0-40.0) % [place] % (Auto) 5.6 (0.0-10.0) % Eos % (Auto) 0.2 (0.0-4.0) % Baso % (Auto) 0.0 (0.0-2.0) % Neut # 9.8 H (1.8-7.0) K/uL Lymph # 1.0 (1.0-4.3) K/uL [place] # 0.6 (0.0-0.8) K/uL Eos # 0.0 (0.0-0.7) K/uL Baso # 0.0 (0.0-0.2) K/uL Neutrophils % (Manual) 88 H (50-75) % Lymphocytes % (Manual) 8 L (20-40) % Monocytes % (Manual) 4 (0-10) % Platelet Estimate Decreased L (NORMAL) Large Platelets Polychromasia Slight Hypochromasia (manual) Slight Poikilocytosis (manual Slight Anisocytosis (manual) Moderate Microcytosis (manual) Slight Ovalocytes Slight Suad Cells Slight PT (9.7-12.2) SECONDS INR APTT (21-34) SECONDS Sodium 134 (132-148) mmol/L Potassium 3.5 L (3.6-5.2) mmol/L Chloride 100 (98-107) mmol/L Carbon Dioxide 25 (22-30) mmol/L Anion Gap 12 (10-20) BUN 6 L (7-17) mg/dL Creatinine 0.4 L (0.7-1.2) mg/dL Est GFR ( Amer) > 60 Est GFR (Non-Af Amer) > 60 POC Glucose (mg/dL) 133 H (65-110) mg/dL Random Glucose 64 L (65-105) mg/dL Calcium 7.4 L (8.6-10.4) mg/dl Phosphorus 2.1 L (2.5-4.5) mg/dL Magnesium 1.5 L (1.6-2.3) mg/dL Total Bilirubin 0.8 (0.2-1.3) mg/dL AST 18 (14-36) U/L ALT 32 (9-52) U/L Alkaline Phosphatase 53 (38-126) U/L Total Protein 5.5 L (6.3-8.3) g/dL Albumin 2.3 L (3.5-5.0) g/dL Globulin 3.2 (2.2-3.9) gm/dL Albumin/Globulin Ratio 0.7 L (1.0-2.1) Blood Type Antibody Screen Antibody Identification 04/08/17 04/08/17 04/08/17 Range/Units 17:42 17:42 17:42 WBC 11.0 H (4.8-10.8) K/uL RBC 2.98 L (3.80-5.20) Mil/uL Hgb 7.6 L (11.0-16.0) g/dL Hct 22.8 L (34.0-47.0) % MCV 76.5 L D (81.0-99.0) fL MCH 25.5 L (27.0-31.0) pg MCHC 33.3 (33.0-37.0) g/dL RDW 25.5 H (11.5-14.5) % Plt Count 90 L D (130-400) K/uL MPV 7.2 (7.2-11.7) fL Neut % (Auto) 86.0 H (50.0-75.0) % Lymph % (Auto) 8.2 L (20.0-40.0) % [place] % (Auto) 5.7 (0.0-10.0) % Eos % (Auto) 0.0 (0.0-4.0) % Baso % (Auto) 0.1 (0.0-2.0) % Neut # 9.5 H (1.8-7.0) K/uL Lymph # 0.9 L (1.0-4.3) K/uL [place] # 0.6 (0.0-0.8) K/uL Eos # 0.0 (0.0-0.7) K/uL Baso # 0.0 (0.0-0.2) K/uL Neutrophils % (Manual) 85 H (50-75) % Lymphocytes % (Manual) 12 L (20-40) % Monocytes % (Manual) 3 (0-10) % Platelet Estimate Decreased L (NORMAL) Large Platelets Present Polychromasia Slight Hypochromasia (manual) Moderate Poikilocytosis (manual Slight Anisocytosis (manual) Slight Microcytosis (manual) Moderate Ovalocytes Slight [place] Cells PT 13.4 H (9.7-12.2) SECONDS INR 1.2 APTT 25 D (21-34) SECONDS Sodium 136 (132-148) mmol/L Potassium 2.5 L* (3.6-5.2) mmol/L Chloride 98 (98-107) mmol/L Carbon Dioxide 25 (22-30) mmol/L Anion Gap 15 (10-20) BUN 8 (7-17) mg/dL Creatinine 0.5 L (0.7-1.2) mg/dL Est GFR ( Amer) > 60 Est GFR (Non-Af Amer) > 60 POC Glucose (mg/dL) (65-110) mg/dL Random Glucose 100 (65-105) mg/dL Calcium 7.3 L (8.6-10.4) mg/dl Phosphorus (2.5-4.5) mg/dL Magnesium (1.6-2.3) mg/dL Total Bilirubin 1.3 (0.2-1.3) mg/dL AST 17 (14-36) U/L ALT 34 (9-52) U/L Alkaline Phosphatase 50 (38-126) U/L Total Protein 4.5 L (6.3-8.3) g/dL Albumin 2.3 L (3.5-5.0) g/dL Globulin 2.2 (2.2-3.9) gm/dL Albumin/Globulin Ratio 1.0 (1.0-2.1) Blood Type Antibody Screen Antibody Identification 04/06/17 Range/Units 01:00 WBC (4.8-10.8) K/uL RBC (3.80-5.20) Mil/uL Hgb (11.0-16.0) g/dL Hct (34.0-47.0) % MCV (81.0-99.0) fL MCH (27.0-31.0) pg MCHC (33.0-37.0) g/dL RDW (11.5-14.5) % Plt Count (130-400) K/uL MPV (7.2-11.7) fL Neut % (Auto) (50.0-75.0) % Lymph % (Auto) (20.0-40.0) % [place] % (Auto) (0.0-10.0) % Eos % (Auto) (0.0-4.0) % Baso % (Auto) (0.0-2.0) % Neut # (1.8-7.0) K/uL Lymph # (1.0-4.3) K/uL [place] # (0.0-0.8) K/uL Eos # (0.0-0.7) K/uL Baso # (0.0-0.2) K/uL Neutrophils % (Manual) (50-75) % Lymphocytes % (Manual) (20-40) % Monocytes % (Manual) (0-10) % Platelet Estimate (NORMAL) Large Platelets Polychromasia Hypochromasia (manual) Poikilocytosis (manual Anisocytosis (manual) Microcytosis (manual) Ovalocytes [place] Cells PT (9.7-12.2) SECONDS INR APTT (21-34) SECONDS Sodium (132-148) mmol/L Potassium (3.6-5.2) mmol/L Chloride (98-107) mmol/L Carbon Dioxide (22-30) mmol/L Anion Gap (10-20) BUN (7-17) mg/dL Creatinine (0.7-1.2) mg/dL Est GFR ( Amer) Est GFR (Non-Af Amer) POC Glucose (mg/dL) (65-110) mg/dL Random Glucose (65-105) mg/dL Calcium (8.6-10.4) mg/dl Phosphorus (2.5-4.5) mg/dL Magnesium (1.6-2.3) mg/dL Total Bilirubin (0.2-1.3) mg/dL AST (14-36) U/L ALT (9-52) U/L Alkaline Phosphatase (38-126) U/L Total Protein (6.3-8.3) g/dL Albumin (3.5-5.0) g/dL Globulin (2.2-3.9) gm/dL Albumin/Globulin Ratio (1.0-2.1) Blood Type B POSITIVE Antibody Screen Positive Antibody Identification Anti C Laboratory Results - last 24 hr 04/06/17 04/08/17 04/08/17 01:00 17:42 17:42 WBC 11.0 H RBC 2.98 L Hgb 7.6 L Hct 22.8 L MCV 76.5 L D MCH 25.5 L MCHC 33.3 RDW 25.5 H Plt Count 90 L D MPV 7.2 Neut % (Auto) 86.0 H Lymph % (Auto) 8.2 L [place] % (Auto) 5.7 Eos % (Auto) 0.0 Baso % (Auto) 0.1 Neut # 9.5 H Lymph # 0.9 L [place] # 0.6 Eos # 0.0 Baso # 0.0 Neutrophils % (Manual) 85 H Lymphocytes % (Manual) 12 L Monocytes % (Manual) 3 Platelet Estimate Decreased L Large Platelets Present Polychromasia Slight Hypochromasia (manual) Moderate Poikilocytosis (manual Slight Anisocytosis (manual) Slight Microcytosis (manual) Moderate Ovalocytes Slight [place] Cells PT 13.4 H INR 1.2 APTT 25 D Sodium Potassium Chloride Carbon Dioxide Anion Gap BUN Creatinine Est GFR ( Amer) Est GFR (Non-Af Amer) POC Glucose (mg/dL) Random Glucose Calcium Phosphorus Magnesium Total Bilirubin AST ALT Alkaline Phosphatase Total Protein Albumin Globulin Albumin/Globulin Ratio Blood Type B POSITIVE Antibody Screen Positive Antibody Identification Anti C 04/08/17 04/08/17 04/09/17 17:42 17:48 05:42 WBC 11.5 H RBC 3.71 L Hgb 10.0 L D Hct 30.0 L MCV 80.8 L D MCH 26.9 L MCHC 33.3 RDW 24.5 H Plt Count 88 L MPV 7.2 Neut % (Auto) 85.3 H Lymph % (Auto) 8.9 L [place] % (Auto) 5.6 Eos % (Auto) 0.2 Baso % (Auto) 0.0 Neut # 9.8 H Lymph # 1.0 [place] # 0.6 Eos # 0.0 Baso # 0.0 Neutrophils % (Manual) 88 H Lymphocytes % (Manual) 8 L Monocytes % (Manual) 4 Platelet Estimate Decreased L Large Platelets Polychromasia Slight Hypochromasia (manual) Slight Poikilocytosis (manual Slight Anisocytosis (manual) Moderate Microcytosis (manual) Slight Ovalocytes Slight [place] Cells Slight PT INR APTT Sodium 136 Potassium 2.5 L* Chloride 98 Carbon Dioxide 25 Anion Gap 15 BUN 8 Creatinine 0.5 L Est GFR ( Amer) > 60 Est GFR (Non-Af Amer) > 60 POC Glucose (mg/dL) 133 H Random Glucose 100 Calcium 7.3 L Phosphorus Magnesium Total Bilirubin 1.3 AST 17 ALT 34 Alkaline Phosphatase 50 Total Protein 4.5 L Albumin 2.3 L Globulin 2.2 Albumin/Globulin Ratio 1.0 Blood Type Antibody Screen Antibody Identification 04/09/17 05:42 WBC RBC Hgb Hct MCV MCH MCHC RDW Plt Count MPV Neut % (Auto) Lymph % (Auto) [place] % (Auto) Eos % (Auto) Baso % (Auto) Neut # Lymph # [place] # Eos # Baso # Neutrophils % (Manual) Lymphocytes % (Manual) Monocytes % (Manual) Platelet Estimate Large Platelets Polychromasia Hypochromasia (manual) Poikilocytosis (manual Anisocytosis (manual) Microcytosis (manual) Ovalocytes G[place] Cells PT INR APTT Sodium 134 Potassium 3.5 L Chloride 100 Carbon Dioxide 25 Anion Gap 12 BUN 6 L Creatinine 0.4 L Est GFR ( Amer) > 60 Est GFR (Non-Af Amer) > 60 POC Glucose (mg/dL) Random Glucose 64 L Calcium 7.4 L Phosphorus 2.1 L Magnesium 1.5 L Total Bilirubin 0.8 AST 18 ALT 32 Alkaline Phosphatase 53 Total Protein 5.5 L Albumin 2.3 L Globulin 3.2 Albumin/Globulin Ratio 0.7 L Blood Type Antibody Screen Antibody Identification Fingerstick Blood Sugar Results: 133 Critical Care Progress Note - Nutrition Nutrition: Nutrition Category Date Time Status Liquid Diet [DIET] Diets 04/09/17 Lunch Active Assessment/Plan (1) Bleeding from breast Current Visit: Yes Status: Acute Comment: 51 y/ F w/ large, bleeding invasive ductal carcinoma, s/p IR embolization and jared placement Continue to monitor H&H Transfuse blood as necessary Dressing change per surgery Pain medication as needed
--- NOTE | 2017-04-09 12:39 | CP.PCM.PN ---
Subjective - Date & Time of Evaluation Date of Evaluation: 04/09/17 Time of Evaluation: 12:40 - Subjective Subjective: clinically same Objective - Vital Signs/Intake and Output Vital Signs (last 24 hours): Temp Pulse Resp BP Pulse Ox 98.2 F 48 L 11 L 129/52 L 100 04/09/17 08:00 04/09/17 10:58 04/09/17 10:58 04/09/17 10:58 04/09/17 10:58 Intake and Output: 04/09/17 04/09/17 06:59 18:59 Intake Total 1100 518.0 Output Total 685 80 Balance 415 438.0 - Medications Medications: Current Medications Acetaminophen (Tylenol 325mg Tab) 650 mg PO Q4 PRN PRN Reason: Pain, Mild (1-3) Vancomycin/Sodium Chloride (Vancomycin 1 Gm/Ns 200 Ml) 1 gm in 200 mls @ 166.7 mls/hr IVPB Q24H [facility] Stop: 04/11/17 10:01 Last Admin: 04/09/17 09:48 Dose: 166.7 mls/hr Cefepime HCl (Maxipime Iv 1 Gm Premix) 1 gm in 50 mls @ 100 mls/hr IVPB Q12H [facility] Last Admin: 04/09/17 11:49 Dose: 100 mls/hr Potassium Phosphate 15 mmole/ (Sodium Chloride) 255 mls @ 42.5 mls/hr IVPB ONCE ONE Stop: 04/09/17 15:59 Last Admin: 04/09/17 09:48 Dose: 42.5 mls/hr Morphine Sulfate (Morphine) 2 mg IVP Q4 PRN PRN Reason: Pain, moderate (4-7) Last Admin: 04/07/17 21:39 Dose: 2 mg Morphine Sulfate (Morphine) 4 mg IV Q4 PRN PRN Reason: Pain, severe (8-10) Ondansetron HCl (Zofran Odt) 8 mg PO Q8H PRN PRN Reason: Nausea/Vomiting Pantoprazole Sodium (Protonix Susp) 40 mg PO DAILY [facility] Last Admin: 04/09/17 10:10 Dose: Not Given Pantoprazole Sodium (Protonix Susp) 40 mg PO 0600 [facility] Last Admin: 04/09/17 07:30 Dose: 40 mg Saccharomyces Boulardii (Florastor) 250 mg PO DAILY [facility] Last Admin: 04/09/17 09:43 Dose: 250 mg - Labs Labs: 04/09/17 05:42 04/09/17 05:42 PT 13.4 SECONDS (9.7-12.2) H 04/08/17 17:42 INR 1.2 04/08/17 17:42 APTT 25 SECONDS (21-34) D 04/08/17 17:42 Assessment and Plan (1) Bleeding Status: Acute (2) Bleeding from breast Status: Acute (3) Breast cancer Status: Acute (4) DIC (disseminated intravascular coagulation) Status: Acute (5) Leukocytosis Status: Acute (6) Skin irritation Status: Acute (7) Tachycardia Status: Acute (8) Thrombocytopenia Status: Acute (9) Anemia Status: Acute (10) Anemia Status: Acute (11) Breast cancer Status: Acute (12) Breast mass, left Status: Acute (13) Chest pain Status: Acute (14) Clinical decompensation Status: Acute (15) Constipation Status: Acute (16) Invasive ductal carcinoma of breast, stage 3 Status: Acute (17) Malnutrition Status: Acute (18) 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
--- NOTE | 2017-04-09 12:49 | CP.PCM.PN ---
Subjective - Date & Time of Evaluation Date of Evaluation: 04/09/17 Time of Evaluation: 08:00 - Subjective Subjective: patient is resting comfortably in bed no recurrence of bleeding denies fever or chest pain Objective - Vital Signs/Intake and Output Vital Signs (last 24 hours): Temp Pulse Resp BP Pulse Ox 98.2 F 48 L 11 L 129/52 L 100 04/09/17 08:00 04/09/17 10:58 04/09/17 10:58 04/09/17 10:58 04/09/17 10:58 Intake and Output: 04/09/17 04/09/17 06:59 18:59 Intake Total 1100 518.0 Output Total 685 80 Balance 415 438.0 - Medications Medications: Current Medications Acetaminophen (Tylenol 325mg Tab) 650 mg PO Q4 PRN PRN Reason: Pain, Mild (1-3) Vancomycin/Sodium Chloride (Vancomycin 1 Gm/Ns 200 Ml) 1 gm in 200 mls @ 166.7 mls/hr IVPB Q24H [facility] Stop: 04/11/17 10:01 Last Admin: 04/09/17 09:48 Dose: 166.7 mls/hr Cefepime HCl (Maxipime Iv 1 Gm Premix) 1 gm in 50 mls @ 100 mls/hr IVPB Q12H [facility] Last Admin: 04/09/17 11:49 Dose: 100 mls/hr Potassium Phosphate 15 mmole/ (Sodium Chloride) 255 mls @ 42.5 mls/hr IVPB ONCE ONE Stop: 04/09/17 15:59 Last Admin: 04/09/17 09:48 Dose: 42.5 mls/hr Morphine Sulfate (Morphine) 2 mg IVP Q4 PRN PRN Reason: Pain, moderate (4-7) Last Admin: 04/07/17 21:39 Dose: 2 mg Morphine Sulfate (Morphine) 4 mg IV Q4 PRN PRN Reason: Pain, severe (8-10) Ondansetron HCl (Zofran Odt) 8 mg PO Q8H PRN PRN Reason: Nausea/Vomiting Pantoprazole Sodium (Protonix Susp) 40 mg PO DAILY [facility] Last Admin: 04/09/17 10:10 Dose: Not Given Pantoprazole Sodium (Protonix Susp) 40 mg PO 0600 [facility] Last Admin: 11/19/17 07:30 Dose: 40 mg Saccharomyces Boulardii (Florastor) 250 mg PO DAILY [facility] Last Admin: 04/09/17 09:43 Dose: 250 mg - Labs Labs: 04/09/17 05:42 04/09/17 05:42 PT 13.4 SECONDS (9.7-12.2) H 04/08/17 17:42 INR 1.2 04/08/17 17:42 APTT 25 SECONDS (21-34) D 04/08/17 17:42 - Constitutional Appears: Well, Non-toxic - Head Exam Head Exam: ATRAUMATIC, NORMAL INSPECTION, NORMOCEPHALIC - ENT Exam ENT Exam: Mucous Membranes Dry - Neck Exam Neck Exam: absent: Lymphadenopathy - Respiratory Exam Respiratory Exam: Decreased Breath Sounds, Clear to Ausculation Bilateral - Cardiovascular Exam Cardiovascular Exam: REGULAR RHYTHM, +S1, +S2 - GI/Abdominal Exam GI & Abdominal Exam: Distended, Soft. absent: Tenderness - Rectal Exam Rectal Exam: Deferred - Exam Exam: NORMAL INSPECTION - Extremities Exam Extremities Exam: absent: Pedal Edema - Back Exam Back Exam: absent: CVA tenderness (L), CVA tenderness (R) - Neurological Exam Neurological Exam: Alert, Awake, Oriented x3 Neuro motor strength exam: Left Upper Extremity: 5, Right Upper Extremity: 5, Left Lower Extremity: 5, Right Lower Extremity: 5 - Psychiatric Exam Psychiatric exam: Normal Mood - Skin Skin Exam: Dry Assessment and Plan (1) Bleeding from breast Status: Acute (2) Breast cancer Status: Acute - Assessment and Plan (Free Text) Assessment: cont iv rx and wound care all cultures neg to date
[2017-04-10] MEDS: Cefepime IV 1 gm in Dextrose 1 GM/50 ML BAG IVPB SCH ×2 (00:04→12:25)
[2017-04-10] MEDS: Pantoprazole 40 mg Susp UD PO SCH ×2 (06:07→09:01)
[2017-04-10 06:37] LABS: BASO % 0.1 % (0.0-2.0); EOS # 0.2 K/uL (0.0-0.7); EOS % 1.7 % (0.0-4.0); HEMATOCRIT 31.9 % (34.0-47.0); LYMPH # 1.2 K/uL (1.0-4.3); LYMPH % 8.3 % (20.0-40.0); MEAN CELL VOLUME 80.4 fL (81.0-99.0); MEAN CORPUSCULAR HEMOGLOBIN 27.8 pg (27.0-31.0); MEAN CORPUSCULAR HGB CONC 34.5 g/dL (33.0-37.0); MEAN PLATELET VOLUME 7.3 fL (7.2-11.7); MONO # 0.5 K/uL (0.0-0.8); MONO % 3.5 % (0.0-10.0); NRBC % 0.1 % (0.0-2.0); PLATELET COUNT 133 K/uL (130-400); RED CELL DISTRIBUTION WIDTH 24.6 % (11.5-14.5); WHITE BLOOD COUNT 14.2 K/uL (4.8-10.8)
[2017-04-10 06:49] LABS: ALB/GLOB RATIO 0.7 (1.0-2.1); ALKALINE PHOSPHATASE 61 U/L (38-126); ALT/SGPT 30 U/L (9-52); AST/SGOT 16 U/L (14-36); BILIRUBIN,TOTAL 0.9 mg/dL (0.2-1.3); BLOOD UREA NITROGEN 5 mg/dL (7-17); CALCIUM 7.6 mg/dl (8.6-10.4); CARBON DIOXIDE 28 mmol/L (22-30); CHLORIDE 97 mmol/L (98-107); GFR AFRICAN-AMERICAN > 60; GLUCOSE,RANDOM 70 mg/dL (65-105); MAGNESIUM 1.5 mg/dL (1.6-2.3); PHOSPHOROUS 2.7 mg/dL (2.5-4.5); POTASSIUM 2.6 mmol/L (3.6-5.2); SODIUM 134 mmol/L (132-148); TOTAL PROTEIN 5.5 g/dL (6.3-8.3)
[2017-04-10] MEDS ORDERED: Potassium Chloride 20 mEq ER Tab PO ONE (07:16)
[2017-04-10 08:22] LABS: EOSINOPHIL 3 % (0-4); NUCLEATED RED BLOOD CELL 1 % (0-0); TOTAL CELLS COUNTED 100
[2017-04-10 08:23] LABS: NEUTROPHIL 87 % (50-75)
[2017-04-10] MEDS: Saccharomyces Boulardi 250 mg Cap PO SCH (09:01)
--- NOTE | 2017-04-10 09:13 | CP.PCM.PN ---
Subjective - Date & Time of Evaluation Date of Evaluation: 04/10/17 Time of Evaluation: 07:00 - Subjective Subjective: GENERAL SURGERY PROGRESS NOTE FOR DR. HINES Patient seen and examined at bedside in the ICU. She does not report an more bleeding. Dressing in place. Pt refuses to move per nurse. Objective - Vital Signs/Intake and Output Vital Signs (last 24 hours): Temp Pulse Resp BP Pulse Ox 98.2 F 72 15 113/60 100 04/10/17 04:00 04/10/17 07:00 04/10/17 07:00 04/10/17 06:58 04/10/17 07:00 Intake and Output: 04/10/17 04/10/17 06:59 18:59 Intake Total 300 0 Output Total 430 30 Balance -130 -30 - Medications Medications: Current Medications Acetaminophen (Tylenol 325mg Tab) 650 mg PO Q4 PRN PRN Reason: Pain, Mild (1-3) Vancomycin/Sodium Chloride (Vancomycin 1 Gm/Ns 200 Ml) 1 gm in 200 mls @ 166.7 mls/hr IVPB Q24H [facility] Stop: 04/11/17 10:01 Last Admin: 04/09/17 09:48 Dose: 166.7 mls/hr Cefepime HCl (Maxipime Iv 1 Gm Premix) 1 gm in 50 mls @ 100 mls/hr IVPB Q12H [facility] Last Admin: 04/10/17 00:04 Dose: Not Given Potassium Chloride (Potassium Chloride 20 Meq/100 Ml) 20 meq in 100 mls @ 50 mls/hr IVPB ONCE ONE Stop: 04/10/17 09:19 Last Admin: 04/10/17 08:00 Dose: 50 mls/hr Potassium Chloride (Potassium Chloride 20 Meq/100 Ml) 20 meq in 100 mls @ 50 mls/hr IVPB ONCE ONE Stop: 04/10/17 11:20 Morphine Sulfate (Morphine) 2 mg IVP Q4 PRN PRN Reason: Pain, moderate (4-7) Last Admin: 04/07/17 21:39 Dose: 2 mg Morphine Sulfate (Morphine) 4 mg IV Q4 PRN PRN Reason: Pain, severe (8-10) Ondansetron HCl (Zofran Odt) 8 mg PO Q8H PRN PRN Reason: Nausea/Vomiting Pantoprazole Sodium (Protonix Susp) 40 mg PO DAILY [facility] Last Admin: 04/10/17 09:01 Dose: 40 mg Pantoprazole Sodium (Protonix Susp) 40 mg PO 0600 [facility] Last Admin: 04/10/17 06:07 Dose: 40 mg Saccharomyces Boulardii (Florastor) 250 mg PO DAILY [facility] Last Admin: 04/10/17 09:01 Dose: 250 mg - Labs Labs: 04/10/17 06:23 04/10/17 06:24 PT 13.4 SECONDS (9.7-12.2) H 04/08/17 17:42 INR 1.2 04/08/17 17:42 APTT 25 SECONDS (21-34) D 04/08/17 17:42 - Constitutional Appears: No Acute Distress, Cachectic, Chronically Ill - Head Exam Head Exam: ATRAUMATIC, NORMAL INSPECTION - Eye Exam Eye Exam: EOMI, Normal appearance - Respiratory Exam Respiratory Exam: NORMAL BREATHING PATTERN. absent: Respiratory Distress - Cardiovascular Exam Cardiovascular Exam: +S1, +S2 - Neurological Exam Neurological Exam: Alert, Awake - Psychiatric Exam Psychiatric exam: Normal Affect, Normal Mood - Skin Additional comments: Dressing clean/dry/intact Assessment and Plan - Assessment and Plan (Free Text) Assessment: 51 y/ F w/ large, bleeding invasive ductal carcinoma, s/p IR particle embolization POD#3 - Hemoglobin 11.0 today, no further bleeding noted - Hypokalemia K 2.6, being replaced by ICU team - Dressing loosened due to mild swelling on left arm - Dressing change PRN (xeroform, surgicel, abd, coban) - Pain control PRN - medical management per Critical Care - further recs per Dr. Amos Fonseca PGY-3
--- NOTE | 2017-04-10 10:17 | CP.CCUPN ---
CCU Subjective - Physician Review Subjective (Free Text): 04/10/17 10:14 Patient seen and examined at bedside this morning. Patient states her left breast pain has been well controlled. She has states her energy is much better today. She denies any reoccurrence of bleeding. CCU Objective - Vital Signs / Intake & Output Vital Signs (Last 4 hours): Vital Signs Pulse Resp BP Pulse Ox 04/10/17 09:00 87 13 100 04/10/17 08:58 82 12 116/58 L 100 04/10/17 08:00 80 14 119/84 100 04/10/17 07:58 88 15 121/63 100 04/10/17 07:00 72 15 100 04/10/17 06:58 72 14 113/60 100 Intake and Output (Last 8hrs): Intake & Output 04/09/17 04/10/17 04/10/17 22:59 06:59 14:59 Intake Total 200 100 120 Output Total 360 310 80 Balance -160 -210 40 Weight 88 lb 12.8 oz Intake: Oral 200 100 120 Output: Urine 360 310 80 Urethral (Landry) 360 310 80 Stool 0 - Physical Exam Head: Positive for: Atraumatic, Normocephalic Mouth: Positive for: Moist Mucous Membranes Respiratory/Chest: Positive for: Clear to Auscultation, Good Air Exchange Cardiovascular: Positive for: Regular Rate and Rhythm Abdomen: Positive for: Normal Bowel Sounds. Negative for: Tenderness, Distention Breast/Axillary: Positive for: Other (left breast mass bleeding through old dressing. Dressing has not been changed since procedure. Re-enforcing dressing for now. ) Upper Extremity: Positive for: Other (atrophy, poor pulses b/l radial and DP/PT) Skin: Positive for: Warm Psychiatric: Positive for: Alert, Oriented x 3, Normal Insight, Normal Concentration, Normal Affect, Normal Mood - Medications Active Medications: Active Medications Generic Name Dose Route Start Last Admin Trade Name Freq PRN Reason Stop Dose Admin Acetaminophen 650 mg 04/07/17 21:25 Tylenol 325mg Tab PO Q4 PRN Pain, Mild (1-3) Vancomycin/Sodium Chloride 1 gm in 200 mls @ 166.7 mls/hr 04/06/17 10:00 09:48 Vancomycin 1 Gm/Ns 200 Ml IVPB 04/11/17 10:01 166.7 mls/hr Q24H [facility] Administration Cefepime HCl 1 gm in 50 mls @ 100 mls/hr 04/06/17 12:00 04/10/17 00:04 Maxipime Iv 1 Gm Premix IVPB Not Given Q12H [facility] Potassium Chloride 20 meq in 100 mls @ 50 mls/hr 04/10/17 09:21 Potassium Chloride 20 Meq/100 Ml IVPB 04/10/17 11:20 ONCE ONE Morphine Sulfate 2 mg 04/07/17 21:25 04/07/17 21:39 Morphine IVP 2 mg Q4 PRN Administration Pain, moderate (4-7) Morphine Sulfate 4 mg 04/07/17 21:26 Morphine IV Q4 PRN Pain, severe (8-10) Ondansetron HCl 8 mg 04/05/17 19:34 Zofran Odt PO Q8H PRN Nausea/Vomiting Pantoprazole Sodium 40 mg 04/08/17 10:00 04/10/17 09:01 Protonix Susp PO 40 mg DAILY [facility] Administration Pantoprazole Sodium 40 mg 04/09/17 06:00 04/10/17 06:07 Protonix Susp PO 40 mg 0600 [facility] Administration Saccharomyces Boulardii 250 mg 04/06/17 10:00 04/10/17 09:01 Florastor PO 250 mg DAILY [facility] Administration - Patient Studies Lab Studies: Microbiology Studies 04/06/17 00:30 Blood Culture - Preliminary Blood NO GROWTH AFTER 4 DAYS 04/06/17 00:30 Blood Culture - Preliminary Blood NO GROWTH AFTER 4 DAYS Lab Studies 04/10/17 04/10/17 04/10/17 Range/Units 06:24 06:24 06:23 WBC 14.2 H (4.8-10.8) K/uL RBC 3.97 (3.80-5.20) Mil/uL Hgb 11.0 (11.0-16.0) g/dL Hct 31.9 L (34.0-47.0) % MCV 80.4 L (81.0-99.0) fL MCH 27.8 (27.0-31.0) pg MCHC 34.5 (33.0-37.0) g/dL RDW 24.6 H (11.5-14.5) % Plt Count 133 (130-400) K/uL MPV 7.3 (7.2-11.7) fL Neut % (Auto) 86.4 H (50.0-75.0) % Lymph % (Auto) 8.3 L (20.0-40.0) % [place] % (Auto) 3.5 (0.0-10.0) % Eos % (Auto) 1.7 (0.0-4.0) % Baso % (Auto) 0.1 (0.0-2.0) % Neut # 12.3 H (1.8-7.0) K/uL Lymph # 1.2 (1.0-4.3) K/uL [place] # 0.5 (0.0-0.8) K/uL Eos # 0.2 (0.0-0.7) K/uL Baso # 0.0 (0.0-0.2) K/uL Neutrophils % (Manual) 87 H (50-75) % Band Neutrophils % 1 (0-2) % Lymphocytes % (Manual) 6 L (20-40) % Monocytes % (Manual) 3 (0-10) % Eosinophils % (Manual) 3 (0-4) % Nucleated RBC % 1 H (0-0) % Platelet Estimate Normal (NORMAL) Hypochromasia (manual) Slight Poikilocytosis (manual Slight Anisocytosis (manual) Slight Sodium 134 (132-148) mmol/L Potassium 2.6 L (3.6-5.2) mmol/L Chloride 97 L (98-107) mmol/L Carbon Dioxide 28 (22-30) mmol/L Anion Gap 11 (10-20) BUN 5 L (7-17) mg/dL Creatinine 0.3 L (0.7-1.2) mg/dL Est GFR ( Amer) > 60 Est GFR (Non-Af Amer) > 60 Random Glucose 70 (65-105) mg/dL Calcium 7.6 L (8.6-10.4) mg/dl Phosphorus 2.7 (2.5-4.5) mg/dL Magnesium 1.5 L (1.6-2.3) mg/dL Total Bilirubin 0.9 (0.2-1.3) mg/dL AST 16 (14-36) U/L ALT 30 (9-52) U/L Alkaline Phosphatase 61 (38-126) U/L Total Protein 5.5 L (6.3-8.3) g/dL Albumin 2.3 L (3.5-5.0) g/dL Globulin 3.2 (2.2-3.9) gm/dL Albumin/Globulin Ratio 0.7 L (1.0-2.1) Vancomycin Trough 12.1 H (5.0-10.0) ug/mL Laboratory Results - last 24 hr 04/10/17 04/10/17 04/10/17 06:23 06:24 06:24 WBC 14.2 H RBC 3.97 Hgb 11.0 Hct 31.9 L MCV 80.4 L MCH 27.8 MCHC 34.5 RDW 24.6 H Plt Count 133 MPV 7.3 Neut % (Auto) 86.4 H Lymph % (Auto) 8.3 L [place] % (Auto) 3.5 Eos % (Auto) 1.7 Baso % (Auto) 0.1 Neut # 12.3 H Lymph # 1.2 [place] # 0.5 Eos # 0.2 Baso # 0.0 Neutrophils % (Manual) 87 H Band Neutrophils % 1 Lymphocytes % (Manual) 6 L Monocytes % (Manual) 3 Eosinophils % (Manual) 3 Nucleated RBC % 1 H Platelet Estimate Normal Hypochromasia (manual) Slight Poikilocytosis (manual Slight Anisocytosis (manual) Slight Sodium 134 Potassium 2.6 L Chloride 97 L Carbon Dioxide 28 Anion Gap 11 BUN 5 L Creatinine 0.3 L Est GFR ( Amer) > 60 Est GFR (Non-Af Amer) > 60 Random Glucose 70 Calcium 7.6 L Phosphorus 2.7 Magnesium 1.5 L Total Bilirubin 0.9 AST 16 ALT 30 Alkaline Phosphatase 61 Total Protein 5.5 L Albumin 2.3 L Globulin 3.2 Albumin/Globulin Ratio 0.7 L Vancomycin Trough 12.1 H Fingerstick Blood Sugar Results: 133 Review of Systems - Constitutional Constitutional: Weakness (improving). absent: Fever, Chills - EENT Eyes: UNREMARKABLE. absent: Change in Vision Ears: UNREMARKABLE Nose/Mouth/Throat: UNREMARKABLE - Breasts Breasts: Pain (well controlled) - Cardiovascular Cardiovascular: absent: Chest Pain - Respiratory Respiratory: UNREMARKABLE - Gastrointestinal Gastrointestinal: UNREMARKABLE (normal BM) - Genitourinary Genitourinary: UNREMARKABLE. absent: Change in Urinary Stream Critical Care Progress Note - Nutrition Nutrition: Nutrition Category Date Time Status Liquid Diet [DIET] Diets 04/09/17 Lunch Active Assessment/Plan - Assessment and Plan (Free Text) Assessment: 51F with large invasive ductal carcinoma mass of left breast with chronic skin and soft-tissue breakdown, s/p IR embolization and jared placement POD#3 Plan: Endo: K+ (2.6) - repleted with 40mEq oral and 20mEq IVPBx2 Heme: Monitor H/H - stable today .9 transfuse as needed : Landry cath discontinued Skin: Left breast mass, awaiting surgery for dressing changes. DO NOT change, re- enforce for now ID: Abx per ID, Cefepime 1gm IVPB q12h Vanco 1gm IVPB q24h Patient is stable and will be transferred to Med-Surg floor. Case discussed with Dr. Jimmy Silvan PGY1
[2017-04-10] MEDS: Vancomycin 1 gm/NS 200 ml 1 GM/200 ML BAG IVPB SCH (11:00)
--- NOTE | 2017-04-10 11:58 | RAD ---
PROCEDURE: Left breast mass embolization CLINICAL HISTORY: 51-year-old female with a fungating hemorrhagic left breast mass causing acute blood loss anemia from refused surgical intervention this referred to interventional radiology for angiography and possible embolization of the left breast mass. COMPARISON: CT angiography of the chest dated 04/06/2017. PROCEDURE: 1. Focused ultrasound of the left wrist vasculature. 2. Ultrasound-guided access. 3. Left subclavian artery angiography. 4. Left thoracoacromial artery and branch artery angiography. 5. Left thoracolumbar branch artery particle embolization x2. 6. Left internal mammary artery angiography. 7. Left internal mammary artery particle embolization. 8. Left lateral thoracic artery angiography. PRE-PROCEDURE FINDINGS: 1. Multiple small neovessels from branches of the left internal mammary artery and left thoracoacromial artery supplying exophytic left breast mass. POST-PROCEDURE FINDINGS: 1. Sluggish antegrade flow without appreciable flow to the exophytic mass. INTERVENTIONAL RADIOLOGIST: Rock Kennedy M.D. (the attending was present for the entire procedure.) ANESTHESIA: Provided by the attending anesthesiologist. Sedation was supervised by the anesthesiology attending with the presence of independent radiology nursing monitoring. Physiological data monitoring was performed throughout the entire procedure. The patient's blood pressure, EKG and pulse oximetry were recorded. The patient tolerated the procedure and sedation without untoward reactions. The intra-procedural sedation time was 180 minutes. MEDICATION: Lidocaine 1% for local subcutaneous analgesia. COMPLICATIONS: None. RADIATION DOSE: Fluoroscopy Time: 2454.7 seconds DAP: 206.0 mGy PROCEDURE DESCRIPTION AND FINDINGS: The risks, benefits, alternatives and possible complications of the procedure were fully discussed; all questions were answered and informed consent was obtained. The patient was brought into the interventional suite and a pre-procedure 'time-out' was performed. The patient was placed on the fluoroscopy table in the supine position. A modified Oswaldo test (Barbeau test) was performed on the left wrist to confirm patency of the ulnopalmar arch using pulse oximetry. A Barbeau B waveform was demonstrated. The left wrist was prepped and draped in the usual sterile fashion. Maximum sterile barrier precautions were maintained throughout the entire procedure. Preliminary ultrasound images of the left wrist vasculature demonstrate patency of the left radial artery. Following subcutaneous infiltration of 1% lidocaine for local analgesia, under ultrasound guidance, a 21-gauge needle was advanced into the left radial artery with real-time visualization of needle entry. The ultrasound images were permanently recorded and submitted to the PACS. A 0.018 guidewire was advanced centrally. A 6 Irish glide slender sheath was advanced over the guidewire. 5 Irish angled glide catheter was advanced over a Bentson wire into the subclavian artery. The left thoracoacromial artery was selected and digital subtraction angiography was performed which demonstrated multiple small neovessels supplying the exophytic left breast mass. 2.8 Irish Terumo Progreat micro catheter was coaxially loaded and used to sub select multiple distal branches of the thoraco acromial artery supplying the breast mass. Particle embolization was performed utilizing 500-700 micron embospheres. Post embolization angiography demonstrated sluggish antegrade flow without appreciable flow to the exophytic mass. The micro catheter was removed and the angled glide catheter was exchanged for an internal mammary angiographic catheter. The internal mammary artery was selected and digital subtraction angiography was performed which demonstrated multiple small neovessels supplying the exophytic left breast mass. The 2.8 Irish Terumo Progreat micro catheter was coaxially loaded. Small branches supplying the breast mass were too small to be catheterized. Particle embolization was performed from the main left internal mammary artery utilizing 500-700 micron embospheres. Post embolization angiography demonstrates sluggish antegrade flow without appreciable flow to the exophytic breast mass. The catheter was placed in the left subclavian artery and digital subtraction angiography was performed. No flow to the exophytic breast mass was appreciated. The lateral thoracic artery was selected and digital subtraction angiography was performed. No flow to the exophytic breast mass was appreciated. All catheters, guidewires and sheaths were removed. Adequate hemostasis was achieved utilizing a trans radial hemostatic bracelet. The patient tolerated the procedure well without immediate post-procedure complications and was transferred back to the ICU in stable condition. IMPRESSION: Numerous meal vessels from branches of the left internal mammary and thoracoacromial arteries supplying the exophytic left breast mass. Successful particle embolization of these vessels are without appreciable residual flow to the mass.
--- NOTE | 2017-04-10 18:56 | CP.PCM.PN ---
Subjective - Date & Time of Evaluation Date of Evaluation: 04/10/17 Time of Evaluation: 12:00 - Subjective Subjective: clinically same Objective - Vital Signs/Intake and Output Vital Signs (last 24 hours): Temp Pulse Resp BP Pulse Ox 98.2 F 86 20 118/51 L 100 04/10/17 16:00 04/10/17 17:00 04/10/17 17:00 04/10/17 16:58 04/10/17 17:00 Intake and Output: 04/10/17 04/10/17 06:59 18:59 Intake Total 300 580 Output Total 430 230 Balance -130 350 - Medications Medications: Current Medications Acetaminophen (Tylenol 325mg Tab) 650 mg PO Q4 PRN PRN Reason: Pain, Mild (1-3) Vancomycin/Sodium Chloride (Vancomycin 1 Gm/Ns 200 Ml) 1 gm in 200 mls @ 166.7 mls/hr IVPB Q24H [facility] Stop: 04/11/17 10:01 Last Admin: 04/10/17 11:00 Dose: 166.7 mls/hr Cefepime HCl (Maxipime Iv 1 Gm Premix) 1 gm in 50 mls @ 100 mls/hr IVPB Q12H [facility] Last Admin: 04/10/17 12:25 Dose: 100 mls/hr Morphine Sulfate (Morphine) 2 mg IVP Q4 PRN PRN Reason: Pain, moderate (4-7) Last Admin: 04/07/17 21:39 Dose: 2 mg Morphine Sulfate (Morphine) 4 mg IV Q4 PRN PRN Reason: Pain, severe (8-10) Ondansetron HCl (Zofran Odt) 8 mg PO Q8H PRN PRN Reason: Nausea/Vomiting Pantoprazole Sodium (Protonix Susp) 40 mg PO DAILY [facility] Last Admin: 04/10/17 09:01 Dose: 40 mg Pantoprazole Sodium (Protonix Susp) 40 mg PO 0600 [facility] Last Admin: 04/10/17 06:07 Dose: 40 mg Saccharomyces Boulardii (Florastor) 250 mg PO DAILY [facility] Last Admin: 04/10/17 09:01 Dose: 250 mg - Labs Labs: 04/10/17 06:23 04/10/17 06:24 PT 13.4 SECONDS (9.7-12.2) H 11/18/17 17:42 INR 1.2 04/08/17 17:42 APTT 25 SECONDS (21-34) D 04/08/17 17:42 Assessment and Plan (1) Bleeding Status: Acute (2) Bleeding from breast Status: Acute (3) Breast cancer Status: Acute (4) DIC (disseminated intravascular coagulation) Status: Acute (5) Leukocytosis Status: Acute (6) Skin irritation Status: Acute (7) Tachycardia Status: Acute (8) Thrombocytopenia Status: Acute (9) Anemia Status: Acute (10) Anemia Status: Acute (11) Breast cancer Status: Acute (12) Breast mass, left Status: Acute (13) Chest pain Status: Acute (14) Clinical decompensation Status: Acute (15) Constipation Status: Acute (16) Invasive ductal carcinoma of breast, stage 3 Status: Acute (17) Malnutrition Status: Acute (18) 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
[2017-04-11] MEDS: Cefepime IV 1 gm in Dextrose 1 GM/50 ML BAG IVPB SCH ×2 (00:21→12:34)
[2017-04-11 06:57] LABS: MAGNESIUM 1.6 mg/dL (1.6-2.3); PHOSPHOROUS 2.4 mg/dL (2.5-4.5)
--- NOTE | 2017-04-11 08:42 | CP.PCM.PN ---
Subjective - Date & Time of Evaluation Date of Evaluation: 04/11/17 Time of Evaluation: 07:00 - Subjective Subjective: GENERAL SURGERY PROGRESS NOTE FOR DR. HINES Patient seen and examined at bedside in the ICU. She does not report any more bleeding. Dressing in place. Landry was removed. Pt had BM yesterday. Objective - Vital Signs/Intake and Output Vital Signs (last 24 hours): Temp Pulse Resp BP Pulse Ox 97.7 F 65 12 112/57 L 100 04/11/17 04:00 04/11/17 05:00 04/11/17 05:00 04/11/17 04:00 04/11/17 05:00 - Medications Medications: Current Medications Acetaminophen (Tylenol 325mg Tab) 650 mg PO Q4 PRN PRN Reason: Pain, Mild (1-3) Vancomycin/Sodium Chloride (Vancomycin 1 Gm/Ns 200 Ml) 1 gm in 200 mls @ 166.7 mls/hr IVPB Q24H [facility] Stop: 04/11/17 10:01 Last Admin: 04/10/17 11:00 Dose: 166.7 mls/hr Cefepime HCl (Maxipime Iv 1 Gm Premix) 1 gm in 50 mls @ 100 mls/hr IVPB Q12H [facility] Last Admin: 04/11/17 00:21 Dose: 100 mls/hr Morphine Sulfate (Morphine) 2 mg IVP Q4 PRN PRN Reason: Pain, moderate (4-7) Last Admin: 04/07/17 21:39 Dose: 2 mg Morphine Sulfate (Morphine) 4 mg IV Q4 PRN PRN Reason: Pain, severe (8-10) Ondansetron HCl (Zofran Odt) 8 mg PO Q8H PRN PRN Reason: Nausea/Vomiting Pantoprazole Sodium (Protonix Susp) 40 mg PO DAILY [facility] Last Admin: 04/10/17 09:01 Dose: 40 mg Potassium Chloride (K-Dur 20 Meq Er Tab) 40 meq PO BRK [facility] Saccharomyces Boulardii (Florastor) 250 mg PO DAILY [facility] Last Admin: 04/10/17 09:01 Dose: 250 mg - Labs Labs: 04/10/17 06:23 04/10/17 06:24 PT 13.4 SECONDS (9.7-12.2) H 04/08/17 17:42 INR 1.2 04/08/17 17:42 APTT 25 SECONDS (21-34) D 04/08/17 17:42 - Constitutional Appears: Non-toxic, No Acute Distress, Cachectic, Chronically Ill - Eye Exam Eye Exam: EOMI, Normal appearance - Respiratory Exam Respiratory Exam: NORMAL BREATHING PATTERN. absent: Respiratory Distress - Cardiovascular Exam Cardiovascular Exam: +S1, +S2 - Neurological Exam Neurological Exam: Alert, Awake - Psychiatric Exam Psychiatric exam: Normal Affect, Normal Mood - Skin Skin Exam: Normal Color, Warm Additional comments: left breast dressing clean/dry/intact Assessment and Plan - Assessment and Plan (Free Text) Assessment: 51 y/ F w/ large, bleeding invasive ductal carcinoma, s/p IR particle embolization POD#4 - Afebrile, VSS - Hemoglobin 11.1 today (Hgb 11 yesterday) - No more bleeding noted - Will change dressing tomorrow - Pain control PRN - Patient up for transfer to floor - Pt requesting pureed diet, changed diet to pureed diet - Further recs per Dr. Amos Fonseca PGY-3
[2017-04-11 09:15] LABS: BASO % 0.1 % (0.0-2.0); EOS # 0.4 K/uL (0.0-0.7); EOS % 2.6 % (0.0-4.0); HEMATOCRIT 32.9 % (34.0-47.0); LYMPH # 1.1 K/uL (1.0-4.3); LYMPH % 7.8 % (20.0-40.0); MEAN CELL VOLUME 81.2 fL (81.0-99.0); MEAN CORPUSCULAR HEMOGLOBIN 27.5 pg (27.0-31.0); MEAN CORPUSCULAR HGB CONC 33.9 g/dL (33.0-37.0); MEAN PLATELET VOLUME 7.2 fL (7.2-11.7); MONO # 0.4 K/uL (0.0-0.8); PLATELET COUNT 178 K/uL (130-400); RED CELL DISTRIBUTION WIDTH 24.2 % (11.5-14.5); WHITE BLOOD COUNT 14.5 K/uL (4.8-10.8)
[2017-04-11 09:19] LABS: ALKALINE PHOSPHATASE 66 U/L (38-126); ALT/SGPT 31 U/L (9-52); AST/SGOT 19 U/L (14-36); BLOOD UREA NITROGEN 4 mg/dL (7-17); CALCIUM 7.4 mg/dl (8.6-10.4); CARBON DIOXIDE 28 mmol/L (22-30); CHLORIDE 99 mmol/L (98-107); GFR AFRICAN-AMERICAN > 60; GLUCOSE,RANDOM 78 mg/dL (65-105); POTASSIUM 2.8 mmol/L (3.6-5.2); SODIUM 132 mmol/L (132-148); TOTAL PROTEIN 4.7 g/dL (6.3-8.3)
[2017-04-11 09:21] LABS: ALB/GLOB RATIO 0.9 (1.0-2.1)
[2017-04-11 09:43] LABS: EOSINOPHIL 2 % (0-4); NEUTROPHIL 85 % (50-75); TOTAL CELLS COUNTED 100
[2017-04-11] MEDS: Saccharomyces Boulardi 250 mg Cap PO SCH (09:45)
[2017-04-11] MEDS: Vancomycin 1 gm/NS 200 ml 1 GM/200 ML BAG IVPB SCH (09:46)
[2017-04-11] MEDS: Potassium Chloride 20 mEq ER Tab PO SCH (09:46)
[2017-04-11] MEDS: Pantoprazole 40 mg EC Tab PO SCH (10:00)
[2017-04-11] MEDS ORDERED: Potassium Chloride 20 mEq ER Tab PO ONE ×2 (13:00→13:03)
--- NOTE | 2017-04-11 14:10 | CP.PCM.PN ---
Subjective - Date & Time of Evaluation Date of Evaluation: 04/10/17 Time of Evaluation: 20:40 - Subjective Subjective: Comfortable, bleeding appears resolved Objective - Vital Signs/Intake and Output Vital Signs (last 24 hours): Temp Pulse Resp BP Pulse Ox 97.7 F 65 12 112/57 L 100 04/11/17 04:00 04/11/17 05:00 04/11/17 05:00 04/11/17 04:00 04/11/17 05:00 - Medications Medications: Current Medications Acetaminophen (Tylenol 325mg Tab) 650 mg PO Q4 PRN PRN Reason: Pain, Mild (1-3) Potassium Chloride (Potassium Chloride 20 Meq/100 Ml) 20 meq in 100 mls @ 50 mls/hr IVPB ONCE ONE Stop: 04/11/17 15:00 Last Admin: 04/11/17 13:42 Dose: 50 mls/hr Morphine Sulfate (Morphine) 2 mg IVP Q4 PRN PRN Reason: Pain, moderate (4-7) Last Admin: 04/07/17 21:39 Dose: 2 mg Morphine Sulfate (Morphine) 4 mg IV Q4 PRN PRN Reason: Pain, severe (8-10) Ondansetron HCl (Zofran Odt) 8 mg PO Q8H PRN PRN Reason: Nausea/Vomiting Pantoprazole Sodium (Protonix Ec Tab) 40 mg PO DAILY [facility] Last Admin: 04/11/17 10:00 Dose: 40 mg Potassium Chloride (K-Dur 20 Meq Er Tab) 40 meq PO BRK [facility] Last Admin: 04/11/17 09:46 Dose: 40 meq Saccharomyces Boulardii (Florastor) 250 mg PO DAILY [facility] Last Admin: 04/11/17 09:45 Dose: 250 mg - Labs Labs: 04/11/17 09:00 04/11/17 06:36 PT 13.4 SECONDS (9.7-12.2) H 04/08/17 17:42 INR 1.2 04/08/17 17:42 APTT 25 SECONDS (21-34) D 04/08/17 17:42 - Head Exam Head Exam: ATRAUMATIC - Eye Exam Eye Exam: Normal appearance - ENT Exam ENT Exam: Mucous Membranes Dry - Respiratory Exam Respiratory Exam: NORMAL BREATHING PATTERN - Cardiovascular Exam Cardiovascular Exam: +S1, +S2 - GI/Abdominal Exam GI & Abdominal Exam: Normal Bowel Sounds Assessment and Plan (1) Anemia Assessment & Plan: anemia of blood loss; resolved anemia of chronic disease s/p PRBC transfusion Status: Acute (2) Thrombocytopenia Assessment & Plan: resolving dilutional Status: Acute (3) Leukocytosis Assessment & Plan: likely reactive Status: Acute (4) Breast cancer Assessment & Plan: outpatient treatment if agreeable Status: Acute
--- NOTE | 2017-04-11 14:11 | CP.PCM.PN ---
Subjective - Date & Time of Evaluation Date of Evaluation: 04/11/17 Time of Evaluation: 13:40 - Subjective Subjective: Comfortable, seen eating no bleeding Objective - Vital Signs/Intake and Output Vital Signs (last 24 hours): Temp Pulse Resp BP Pulse Ox 97.7 F 65 12 112/57 L 100 04/11/17 04:00 04/11/17 05:00 04/11/17 05:00 04/11/17 04:00 04/11/17 05:00 - Medications Medications: Current Medications Acetaminophen (Tylenol 325mg Tab) 650 mg PO Q4 PRN PRN Reason: Pain, Mild (1-3) Potassium Chloride (Potassium Chloride 20 Meq/100 Ml) 20 meq in 100 mls @ 50 mls/hr IVPB ONCE ONE Stop: 04/11/17 15:00 Last Admin: 04/11/17 13:42 Dose: 50 mls/hr Morphine Sulfate (Morphine) 2 mg IVP Q4 PRN PRN Reason: Pain, moderate (4-7) Last Admin: 04/07/17 21:39 Dose: 2 mg Morphine Sulfate (Morphine) 4 mg IV Q4 PRN PRN Reason: Pain, severe (8-10) Ondansetron HCl (Zofran Odt) 8 mg PO Q8H PRN PRN Reason: Nausea/Vomiting Pantoprazole Sodium (Protonix Ec Tab) 40 mg PO DAILY [facility] Last Admin: 04/11/17 10:00 Dose: 40 mg Potassium Chloride (K-Dur 20 Meq Er Tab) 40 meq PO BRK [facility] Last Admin: 04/11/17 09:46 Dose: 40 meq Saccharomyces Boulardii (Florastor) 250 mg PO DAILY [facility] Last Admin: 04/11/17 09:45 Dose: 250 mg - Labs Labs: 04/11/17 09:00 04/11/17 06:36 PT 13.4 SECONDS (9.7-12.2) H 04/08/17 17:42 INR 1.2 04/08/17 17:42 APTT 25 SECONDS (21-34) D 04/08/17 17:42 - Head Exam Head Exam: ATRAUMATIC - Eye Exam Eye Exam: Normal appearance - ENT Exam ENT Exam: Mucous Membranes Dry - Respiratory Exam Respiratory Exam: NORMAL BREATHING PATTERN - Cardiovascular Exam Cardiovascular Exam: +S1, +S2 - GI/Abdominal Exam GI & Abdominal Exam: Normal Bowel Sounds Assessment and Plan (1) Anemia Assessment & Plan: bleeding resolved anemia of chronic disease from malignancy Status: Acute (2) Leukocytosis Assessment & Plan: reactive Status: Acute (3) Breast cancer Assessment & Plan: outpatient treatment Status: Acute (4) Thrombocytopenia Assessment & Plan: resolved Status: Acute
--- NOTE | 2017-04-11 17:52 | CP.PCM.PN ---
Subjective - Date & Time of Evaluation Date of Evaluation: 04/11/17 Time of Evaluation: 11:20 - Subjective Subjective: clinically same Objective - Vital Signs/Intake and Output Vital Signs (last 24 hours): Temp Pulse Resp BP Pulse Ox 98.7 F 75 16 127/69 100 04/11/17 12:00 04/11/17 12:00 04/11/17 12:00 04/11/17 12:00 04/11/17 05:00 - Medications Medications: Current Medications Acetaminophen (Tylenol 325mg Tab) 650 mg PO Q4 PRN PRN Reason: Pain, Mild (1-3) Morphine Sulfate (Morphine) 2 mg IVP Q4 PRN PRN Reason: Pain, moderate (4-7) Last Admin: 04/07/17 21:39 Dose: 2 mg Morphine Sulfate (Morphine) 4 mg IV Q4 PRN PRN Reason: Pain, severe (8-10) Ondansetron HCl (Zofran Odt) 8 mg PO Q8H PRN PRN Reason: Nausea/Vomiting Pantoprazole Sodium (Protonix Ec Tab) 40 mg PO DAILY [facility] Last Admin: 04/11/17 10:00 Dose: 40 mg Potassium Chloride (K-Dur 20 Meq Er Tab) 40 meq PO BRK [facility] Last Admin: 04/11/17 09:46 Dose: 40 meq Saccharomyces Boulardii (Florastor) 250 mg PO DAILY [facility] Last Admin: 04/11/17 09:45 Dose: 250 mg - Labs Labs: 04/11/17 09:00 04/11/17 06:36 PT 13.4 SECONDS (9.7-12.2) H 04/08/17 17:42 INR 1.2 04/08/17 17:42 APTT 25 SECONDS (21-34) D 04/08/17 17:42 Assessment and Plan (1) Bleeding Status: Acute (2) Bleeding from breast Status: Acute (3) Breast cancer Status: Acute (4) DIC (disseminated intravascular coagulation) Status: Acute (5) Leukocytosis Status: Acute (6) Skin irritation Status: Acute (7) Tachycardia Status: Acute (8) Thrombocytopenia Status: Acute (9) Anemia Status: Acute (10) Anemia Status: Acute (11) Breast cancer Status: Acute (12) Breast mass, left Status: Acute (13) Chest pain Status: Acute (14) Clinical decompensation Status: Acute (15) Constipation Status: Acute (16) Invasive ductal carcinoma of breast, stage 3 Status: Acute (17) Malnutrition Status: Acute (18) 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
[2017-04-12 06:37] LABS: BASO % 0.2 % (0.0-2.0); EOS # 0.6 K/uL (0.0-0.7); EOS % 4.6 % (0.0-4.0); HEMATOCRIT 31.6 % (34.0-47.0); LYMPH # 1.3 K/uL (1.0-4.3); LYMPH % 10.6 % (20.0-40.0); MEAN CELL VOLUME 82.2 fL (81.0-99.0); MEAN CORPUSCULAR HEMOGLOBIN 27.4 pg (27.0-31.0); MEAN CORPUSCULAR HGB CONC 33.4 g/dL (33.0-37.0); MEAN PLATELET VOLUME 7.3 fL (7.2-11.7); MONO # 0.6 K/uL (0.0-0.8); MONO % 4.6 % (0.0-10.0); RED CELL DISTRIBUTION WIDTH 25.3 % (11.5-14.5); WHITE BLOOD COUNT 12.7 K/uL (4.8-10.8)
[2017-04-12 06:52] LABS: BLOOD UREA NITROGEN 5 mg/dL (7-17); CALCIUM 7.5 mg/dl (8.6-10.4); CARBON DIOXIDE 28 mmol/L (22-30); CHLORIDE 100 mmol/L (98-107); GFR AFRICAN-AMERICAN > 60; GLUCOSE,RANDOM 80 mg/dL (65-105); POTASSIUM 3.7 mmol/L (3.6-5.2); SODIUM 132 mmol/L (132-148)
[2017-04-12] MEDS: Potassium Chloride 20 mEq ER Tab PO SCH (08:03)
[2017-04-12] MEDS: Saccharomyces Boulardi 250 mg Cap PO SCH (10:00)
[2017-04-12] MEDS: Pantoprazole 40 mg EC Tab PO SCH ×2 (10:00→10:24)
--- NOTE | 2017-04-12 11:26 | CP.PCM.PN ---
Subjective - Date & Time of Evaluation Date of Evaluation: 04/12/17 Time of Evaluation: 11:00 - Subjective Subjective: General Surgery Note for Dr. Trinidad Patient seen and examined at bedside in the ICU. No acute event overnight. Patient states that she does not feel like mass is bleeding. She also states her arm is feeling better and seems like swelling has decreased. No complaints today. Dressing will be changed today. Objective - Vital Signs/Intake and Output Vital Signs (last 24 hours): Temp Pulse Resp BP Pulse Ox 98.1 F 78 20 121/60 100 04/12/17 08:00 04/12/17 08:00 04/12/17 08:00 04/12/17 08:00 04/12/17 08:00 Intake and Output: 04/12/17 04/12/17 06:59 18:59 Intake Total 720 Output Total 1000 Balance -280 - Medications Medications: Current Medications Acetaminophen (Tylenol 325mg Tab) 650 mg PO Q4 PRN PRN Reason: Pain, Mild (1-3) Morphine Sulfate (Morphine) 2 mg IVP Q4 PRN PRN Reason: Pain, moderate (4-7) Last Admin: 04/07/17 21:39 Dose: 2 mg Morphine Sulfate (Morphine) 4 mg IV Q4 PRN PRN Reason: Pain, severe (8-10) Ondansetron HCl (Zofran Odt) 8 mg PO Q8H PRN PRN Reason: Nausea/Vomiting Pantoprazole Sodium (Protonix Ec Tab) 40 mg PO DAILY [facility] Last Admin: 04/12/17 10:24 Dose: 40 mg Potassium Chloride (K-Dur 20 Meq Er Tab) 40 meq PO BRK [facility] Last Admin: 04/12/17 08:03 Dose: 40 meq Saccharomyces Boulardii (Florastor) 250 mg PO DAILY [facility] Last Admin: 04/11/17 09:45 Dose: 250 mg - Labs Labs: 04/12/17 06:25 04/12/17 06:26 PT 13.4 SECONDS (9.7-12.2) H 04/08/17 17:42 INR 1.2 04/08/17 17:42 APTT 25 SECONDS (21-34) D 04/08/17 17:42 - Constitutional Appears: No Acute Distress, Cachectic, Chronically Ill - Head Exam Head Exam: ATRAUMATIC, NORMOCEPHALIC - Eye Exam Eye Exam: Normal appearance - ENT Exam ENT Exam: Mucous Membranes Moist - Respiratory Exam Respiratory Exam: Clear to Ausculation Bilateral - Cardiovascular Exam Cardiovascular Exam: REGULAR RHYTHM - GI/Abdominal Exam GI & Abdominal Exam: Soft. absent: Tenderness - Extremities Exam Additional comments: LUE contracted and slightly edema LE's extremities contracted - Neurological Exam Neurological Exam: Alert, Awake, Oriented x3 - Psychiatric Exam Psychiatric exam: Normal Affect, Normal Mood - Skin Skin Exam: Dry, Warm Additional comments: left breast dressing is clean, dry, intact Assessment and Plan - Assessment and Plan (Free Text) Plan: 51 F with large, bleeding invasive ductal carcinoma, s/p IR particle embolization POD#5 - Hemoglobin stable - Dressing changes - Pain control PRN - Discussed with Dr. Amos Rico PGY1
--- NOTE | 2017-04-12 16:05 | CP.PCM.PN ---
Subjective - Date & Time of Evaluation Date of Evaluation: 04/12/17 Time of Evaluation: 09:00 - Subjective Subjective: EVENTS NOTED Objective - Vital Signs/Intake and Output Vital Signs (last 24 hours): Temp Pulse Resp BP Pulse Ox 98.6 F 113 H 17 128/62 100 04/12/17 12:00 04/12/17 14:40 04/12/17 14:40 04/12/17 14:40 04/12/17 14:40 Intake and Output: 04/12/17 04/12/17 06:59 18:59 Intake Total 720 600 Output Total 1000 Balance -280 600 - Medications Medications: Current Medications Acetaminophen (Tylenol 325mg Tab) 650 mg PO Q4 PRN PRN Reason: Pain, Mild (1-3) Morphine Sulfate (Morphine) 2 mg IVP Q4 PRN PRN Reason: Pain, moderate (4-7) Last Admin: 04/07/17 21:39 Dose: 2 mg Morphine Sulfate (Morphine) 4 mg IV Q4 PRN PRN Reason: Pain, severe (8-10) Last Admin: 04/12/17 14:42 Dose: 4 mg Ondansetron HCl (Zofran Odt) 8 mg PO Q8H PRN PRN Reason: Nausea/Vomiting Pantoprazole Sodium (Protonix Ec Tab) 40 mg PO DAILY [facility] Last Admin: 04/12/17 10:00 Dose: Not Given Potassium Chloride (K-Dur 20 Meq Er Tab) 40 meq PO BRK [facility] Last Admin: 04/12/17 08:03 Dose: 40 meq Saccharomyces Boulardii (Florastor) 250 mg PO DAILY [facility] Last Admin: 04/12/17 10:00 Dose: Not Given - Labs Labs: 04/12/17 06:25 04/12/17 06:26 PT 13.4 SECONDS (9.7-12.2) H 04/08/17 17:42 INR 1.2 04/08/17 17:42 APTT 25 SECONDS (21-34) D 04/08/17 17:42 - Constitutional Appears: Non-toxic, Cachectic, Chronically Ill - Head Exam Head Exam: NORMOCEPHALIC - Eye Exam Eye Exam: PERRL - ENT Exam ENT Exam: Mucous Membranes Dry - Neck Exam Neck Exam: absent: Lymphadenopathy - Respiratory Exam Respiratory Exam: Decreased Breath Sounds - Cardiovascular Exam Cardiovascular Exam: REGULAR RHYTHM - GI/Abdominal Exam GI & Abdominal Exam: Distended, Soft - Rectal Exam Rectal Exam: Deferred - Exam Exam: NORMAL INSPECTION Assessment and Plan (1) Bleeding from breast Status: Acute (2) Breast cancer Status: Acute
--- NOTE | 2017-04-12 19:19 | CP.PCM.PN ---
Subjective - Date & Time of Evaluation Date of Evaluation: 04/12/17 Time of Evaluation: 12:40 - Subjective Subjective: clinically same Objective - Vital Signs/Intake and Output Vital Signs (last 24 hours): Temp Pulse Resp BP Pulse Ox 98.6 F 89 16 124/72 100 04/12/17 16:00 04/12/17 16:00 04/12/17 16:00 04/12/17 16:00 04/12/17 16:00 Intake and Output: 04/12/17 04/13/17 18:59 06:59 Intake Total 720 Output Total 150 Balance 570 - Medications Medications: Current Medications Acetaminophen (Tylenol 325mg Tab) 650 mg PO Q4 PRN PRN Reason: Pain, Mild (1-3) Morphine Sulfate (Morphine) 2 mg IVP Q4 PRN PRN Reason: Pain, moderate (4-7) Last Admin: 04/07/17 21:39 Dose: 2 mg Morphine Sulfate (Morphine) 4 mg IV Q4 PRN PRN Reason: Pain, severe (8-10) Last Admin: 04/12/17 14:42 Dose: 4 mg Ondansetron HCl (Zofran Odt) 8 mg PO Q8H PRN PRN Reason: Nausea/Vomiting Pantoprazole Sodium (Protonix Ec Tab) 40 mg PO DAILY [facility] Last Admin: 04/12/17 10:00 Dose: Not Given Potassium Chloride (K-Dur 20 Meq Er Tab) 40 meq PO BRK [facility] Last Admin: 04/12/17 08:03 Dose: 40 meq Saccharomyces Boulardii (Florastor) 250 mg PO DAILY [facility] Last Admin: 04/12/17 10:00 Dose: Not Given - Labs Labs: 04/12/17 06:25 04/12/17 06:26 PT 13.4 SECONDS (9.7-12.2) H 04/08/17 17:42 INR 1.2 04/08/17 17:42 APTT 25 SECONDS (21-34) D 04/08/17 17:42 Assessment and Plan (1) Bleeding Status: Acute (2) Bleeding from breast Status: Acute (3) Breast cancer Status: Acute (4) DIC (disseminated intravascular coagulation) Status: Acute (5) Leukocytosis Status: Acute (6) Skin irritation Status: Acute (7) Tachycardia Status: Acute (8) Thrombocytopenia Status: Acute (9) Anemia Status: Acute (10) Anemia Status: Acute (11) Breast cancer Status: Acute (12) Breast mass, left Status: Acute (13) Chest pain Status: Acute (14) Clinical decompensation Status: Acute (15) Constipation Status: Acute (16) Invasive ductal carcinoma of breast, stage 3 Status: Acute (17) Malnutrition Status: Acute (18) 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
--- NOTE | 2017-04-13 07:37 | CP.PCM.PN ---
Subjective - Date & Time of Evaluation Date of Evaluation: 04/13/17 Time of Evaluation: 07:00 - Subjective Subjective: GENERAL SURGERY PROGRESS NOTE FOR DR. HINES Patient seen and examined at bedside. She was transferred out of the ICU to the floor this morning. The dressing was changed yesterday. She does not report any bleeding during or after the dressing change. Dressing in place. Patient refused dressing change this morning stating that she preferred to wait till tomorrow. She denies nausea or vomiting, fever or chills, CP or SOB. Objective - Vital Signs/Intake and Output Vital Signs (last 24 hours): Temp Pulse Resp BP Pulse Ox 98.1 F 90 20 111/68 98 04/13/17 07:00 04/13/17 07:00 04/13/17 07:00 04/13/17 07:00 04/13/17 07:00 Intake and Output: 04/13/17 04/13/17 06:59 18:59 Output Total 650 Balance -650 - Medications Medications: Current Medications Acetaminophen (Tylenol 325mg Tab) 650 mg PO Q4 PRN PRN Reason: Pain, Mild (1-3) Morphine Sulfate (Morphine) 2 mg IVP Q4 PRN PRN Reason: Pain, moderate (4-7) Last Admin: 04/07/17 21:39 Dose: 2 mg Morphine Sulfate (Morphine) 4 mg IV Q4 PRN PRN Reason: Pain, severe (8-10) Last Admin: 04/12/17 14:42 Dose: 4 mg Ondansetron HCl (Zofran Odt) 8 mg PO Q8H PRN PRN Reason: Nausea/Vomiting Pantoprazole Sodium (Protonix Ec Tab) 40 mg PO DAILY [facility] Last Admin: 04/12/17 10:00 Dose: Not Given Potassium Chloride (K-Dur 20 Meq Er Tab) 40 meq PO BRK [facility] Last Admin: 04/12/17 08:03 Dose: 40 meq Saccharomyces Boulardii (Florastor) 250 mg PO DAILY [facility] Last Admin: 04/12/17 10:00 Dose: Not Given - Labs Labs: 04/12/17 06:25 04/12/17 06:26 PT 13.4 SECONDS (9.7-12.2) H 04/08/17 17:42 INR 1.2 04/08/17 17:42 APTT 25 SECONDS (21-34) D 04/08/17 17:42 - Constitutional Appears: Non-toxic, No Acute Distress, Cachectic, Chronically Ill - Head Exam Head Exam: ATRAUMATIC, NORMAL INSPECTION - Respiratory Exam Respiratory Exam: NORMAL BREATHING PATTERN. absent: Respiratory Distress - Cardiovascular Exam Cardiovascular Exam: +S1, +S2 - Neurological Exam Neurological Exam: Alert, Awake - Psychiatric Exam Psychiatric exam: Normal Affect, Normal Mood - Skin Skin Exam: Normal Color, Warm Additional comments: Left breast dressing c/d/i Assessment and Plan - Assessment and Plan (Free Text) Assessment: 51 y/ F w/ large, bleeding invasive ductal carcinoma, s/p IR particle embolization POD#6 - Afebrile, VSS - Dressing changed yesterday, pt refused dressing change this morning - No more bleeding noted - Will change dressing tomorrow - Pain control PRN - Further recs per Dr. Amos Fonseca PGY-3
[2017-04-13] MEDS: Potassium Chloride 20 mEq ER Tab PO SCH (08:01)
[2017-04-13] MEDS: Saccharomyces Boulardi 250 mg Cap PO SCH (10:19)
[2017-04-13] MEDS: Pantoprazole 40 mg EC Tab PO SCH (10:19)
--- NOTE | 2017-04-13 16:53 | CP.PCM.PN ---
Subjective - Date & Time of Evaluation Date of Evaluation: 04/13/17 Objective - Vital Signs/Intake and Output Vital Signs (last 24 hours): Temp Pulse Resp BP Pulse Ox 97.7 F 81 21 112/69 98 04/13/17 08:36 04/13/17 08:36 04/13/17 08:36 04/13/17 08:36 04/13/17 08:36 Intake and Output: 04/13/17 04/13/17 06:59 18:59 Intake Total 325 Output Total 650 250 Balance -650 75 - Medications Medications: Current Medications Acetaminophen (Tylenol 325mg Tab) 650 mg PO Q4 PRN PRN Reason: Pain, Mild (1-3) Morphine Sulfate (Morphine) 2 mg IVP Q4 PRN PRN Reason: Pain, moderate (4-7) Last Admin: 04/07/17 21:39 Dose: 2 mg Morphine Sulfate (Morphine) 4 mg IV Q4 PRN PRN Reason: Pain, severe (8-10) Last Admin: 04/12/17 14:42 Dose: 4 mg Ondansetron HCl (Zofran Odt) 8 mg PO Q8H PRN PRN Reason: Nausea/Vomiting Pantoprazole Sodium (Protonix Ec Tab) 40 mg PO DAILY [facility] Last Admin: 04/13/17 10:19 Dose: Not Given Potassium Chloride (K-Dur 20 Meq Er Tab) 40 meq PO BRK [facility] Last Admin: 04/13/17 08:01 Dose: 40 meq Saccharomyces Boulardii (Florastor) 250 mg PO DAILY [facility] Last Admin: 04/13/17 10:19 Dose: Not Given - Labs Labs: 04/12/17 06:25 04/12/17 06:26 PT 13.4 SECONDS (9.7-12.2) H 04/08/17 17:42 INR 1.2 04/08/17 17:42 APTT 25 SECONDS (21-34) D 04/08/17 17:42 Assessment and Plan (1) Bleeding Status: Acute (2) Bleeding from breast Status: Acute (3) Breast cancer Status: Acute (4) DIC (disseminated intravascular coagulation) Status: Acute (5) Leukocytosis Status: Acute (6) Skin irritation Status: Acute (7) Tachycardia Status: Acute (8) Thrombocytopenia Status: Acute (9) Anemia Status: Acute (10) Anemia Status: Acute (11) Breast cancer Status: Acute (12) Breast mass, left Status: Acute (13) Chest pain Status: Acute (14) Clinical decompensation Status: Acute (15) Constipation Status: Acute (16) Invasive ductal carcinoma of breast, stage 3 Status: Acute (17) Malnutrition Status: Acute (18) 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
[2017-04-14 07:25] LABS: BASO % 0.3 % (0.0-2.0); EOS # 0.5 K/uL (0.0-0.7); EOS % 6.8 % (0.0-4.0); HEMATOCRIT 30.2 % (34.0-47.0); LYMPH # 1.2 K/uL (1.0-4.3); LYMPH % 15.6 % (20.0-40.0); MEAN CELL VOLUME 81.7 fL (81.0-99.0); MEAN CORPUSCULAR HEMOGLOBIN 28.2 pg (27.0-31.0); MEAN CORPUSCULAR HGB CONC 34.5 g/dL (33.0-37.0); MEAN PLATELET VOLUME 7.5 fL (7.2-11.7); MONO # 0.6 K/uL (0.0-0.8); RED CELL DISTRIBUTION WIDTH 24.6 % (11.5-14.5)
[2017-04-14 08:28] LABS: BLOOD UREA NITROGEN 8 mg/dL (7-17); CALCIUM 7.9 mg/dl (8.6-10.4); CARBON DIOXIDE 26 mmol/L (22-30); CHLORIDE 101 mmol/L (98-107); GFR AFRICAN-AMERICAN > 60; GLUCOSE,RANDOM 74 mg/dL (65-105); POTASSIUM 3.8 mmol/L (3.6-5.2); SODIUM 131 mmol/L (132-148)
[2017-04-14] MEDS: Potassium Chloride 20 mEq ER Tab PO SCH (08:52)
[2017-04-14] MEDS: Saccharomyces Boulardi 250 mg Cap PO SCH ×2 (08:52→10:01)
[2017-04-14] MEDS: Pantoprazole 40 mg EC Tab PO SCH ×2 (08:52→10:00)
--- NOTE | 2017-04-14 10:48 | CP.PCM.PN ---
Subjective - Date & Time of Evaluation Date of Evaluation: 04/14/17 Time of Evaluation: 06:40 - Subjective Subjective: General Surgery Note for Dr. Trinidad Patient seen and examined at bedside. No acute event overnight. Patient has no complaints. She states she is feeling much better in genral. Denies pain and bleeding. Dressing will be changed today. Objective - Vital Signs/Intake and Output Vital Signs (last 24 hours): Temp Pulse Resp BP Pulse Ox 98.5 F 67 20 116/72 97 04/14/17 00:00 04/14/17 00:00 04/14/17 00:00 04/14/17 00:00 04/14/17 00:00 Intake and Output: 04/14/17 04/14/17 06:59 18:59 Intake Total 540 Output Total 900 Balance -360 - Medications Medications: Current Medications Acetaminophen (Tylenol 325mg Tab) 650 mg PO Q4 PRN PRN Reason: Pain, Mild (1-3) Ondansetron HCl (Zofran Odt) 8 mg PO Q8H PRN PRN Reason: Nausea/Vomiting Pantoprazole Sodium (Protonix Ec Tab) 40 mg PO DAILY [facility] Last Admin: 04/14/17 10:00 Dose: Not Given Potassium Chloride (K-Dur 20 Meq Er Tab) 40 meq PO BRK [facility] Last Admin: 04/14/17 08:52 Dose: 40 meq Saccharomyces Boulardii (Florastor) 250 mg PO DAILY [facility] Last Admin: 04/14/17 10:01 Dose: Not Given - Labs Labs: 04/14/17 07:10 04/14/17 07:10 PT 13.4 SECONDS (9.7-12.2) H 04/08/17 17:42 INR 1.2 04/08/17 17:42 APTT 25 SECONDS (21-34) D 04/08/17 17:42 - Constitutional Appears: No Acute Distress, Cachectic, Chronically Ill - Eye Exam Eye Exam: Normal appearance - ENT Exam ENT Exam: Mucous Membranes Moist - Respiratory Exam Respiratory Exam: NORMAL BREATHING PATTERN - Cardiovascular Exam Cardiovascular Exam: REGULAR RHYTHM - GI/Abdominal Exam GI & Abdominal Exam: Soft. absent: Tenderness - Neurological Exam Neurological Exam: Alert, Awake, Oriented x3 - Psychiatric Exam Psychiatric exam: Normal Affect, Normal Mood - Skin Skin Exam: Dry, Warm Additional comments: breast dressing is clean, dry and intact Assessment and Plan - Assessment and Plan (Free Text) Plan: 51 F with fungating breast mass, invasive ductal CA, HER2+ -Dressing change today -Analgesics PRN -Discussed with Dr. Amos Rico PGY1
--- NOTE | 2017-04-14 12:07 | CP.PCM.PN ---
Subjective - Date & Time of Evaluation Date of Evaluation: 04/14/17 Time of Evaluation: 12:06 - Subjective Subjective: PGY2 Note for Dr. Gisella Martinez; all management as per Dr. Gisella Martinez This patient was seen and examined without attending physician Dr. Gisella Martinez; patient offers no complaints today and wishes to go home if she can. Denies bleeding since monday, denies fevers/'chills, SANTOS, CP, SOB, abdominal pain, N/V /D, dysuria/freq, urg or lower extremity pain/swelling. Objective - Vital Signs/Intake and Output Vital Signs (last 24 hours): Temp Pulse Resp BP Pulse Ox 98.5 F 67 20 116/72 97 04/14/17 00:00 04/14/17 00:00 04/14/17 00:00 04/14/17 00:00 04/14/17 00:00 Intake and Output: 04/14/17 04/14/17 06:59 18:59 Intake Total 540 Output Total 900 Balance -360 - Medications Medications: Current Medications Acetaminophen (Tylenol 325mg Tab) 650 mg PO Q4 PRN PRN Reason: Pain, Mild (1-3) Ondansetron HCl (Zofran Odt) 8 mg PO Q8H PRN PRN Reason: Nausea/Vomiting Pantoprazole Sodium (Protonix Ec Tab) 40 mg PO DAILY [facility] Last Admin: 04/14/17 10:00 Dose: Not Given Potassium Chloride (K-Dur 20 Meq Er Tab) 40 meq PO BRK [facility] Last Admin: 04/14/17 08:52 Dose: 40 meq Saccharomyces Boulardii (Florastor) 250 mg PO DAILY [facility] Last Admin: 04/14/17 10:01 Dose: Not Given - Labs Labs: 04/14/17 07:10 04/14/17 07:10 PT 13.4 SECONDS (9.7-12.2) H 04/08/17 17:42 INR 1.2 04/08/17 17:42 APTT 25 SECONDS (21-34) D 04/08/17 17:42 - Constitutional Appears: Non-toxic - Head Exam Head Exam: ATRAUMATIC - Eye Exam Eye Exam: EOMI - ENT Exam ENT Exam: Mucous Membranes Moist - Neck Exam Neck Exam: Full ROM - Respiratory Exam Respiratory Exam: Clear to Ausculation Bilateral Additional comments: no bleeding noted wound clean dry and intact - Cardiovascular Exam Cardiovascular Exam: REGULAR RHYTHM - Extremities Exam Extremities Exam: Full ROM. absent: Calf Tenderness - Back Exam Back Exam: absent: CVA tenderness (L), CVA tenderness (R) - Neurological Exam Neurological Exam: Alert, Awake, Oriented x3 - Psychiatric Exam Psychiatric exam: Normal Affect - Skin Skin Exam: Warm Assessment and Plan - Assessment and Plan (Free Text) Assessment: 51yo F admitted for symptomatic anemia 2/2 to bleeding invasive ductal carcinoma Anemia 2/2 to bleeding ductal carcinoma -stable at this point; H/H stable -dressing changes as per surgery -pain control Proph SCD 2/2 to bleeding; no lovenox even though in hypercoaguable state; patient understands risks Protonix OOB as tolerated Case discussed with attending physician; all management as per Dr. Gisella Martinez
--- NOTE | 2017-04-14 16:42 | CP.PCM.PN ---
Subjective - Date & Time of Evaluation Date of Evaluation: 04/14/17 Time of Evaluation: 07:20 - Subjective Subjective: clinically same Objective - Vital Signs/Intake and Output Vital Signs (last 24 hours): Temp Pulse Resp BP Pulse Ox 98.5 F 67 20 116/72 97 04/14/17 00:00 04/14/17 00:00 04/14/17 00:00 04/14/17 00:00 04/14/17 00:00 Intake and Output: 04/14/17 04/14/17 06:59 18:59 Intake Total 540 Output Total 900 Balance -360 - Medications Medications: Current Medications Acetaminophen (Tylenol 325mg Tab) 650 mg PO Q4 PRN PRN Reason: Pain, Mild (1-3) Ondansetron HCl (Zofran Odt) 8 mg PO Q8H PRN PRN Reason: Nausea/Vomiting Pantoprazole Sodium (Protonix Ec Tab) 40 mg PO DAILY [facility] Last Admin: 04/14/17 10:00 Dose: Not Given Potassium Chloride (K-Dur 20 Meq Er Tab) 40 meq PO BRK [facility] Last Admin: 04/14/17 08:52 Dose: 40 meq Saccharomyces Boulardii (Florastor) 250 mg PO DAILY [facility] Last Admin: 04/14/17 10:01 Dose: Not Given - Labs Labs: 04/14/17 07:10 04/14/17 07:10 PT 13.4 SECONDS (9.7-12.2) H 04/08/17 17:42 INR 1.2 04/08/17 17:42 APTT 25 SECONDS (21-34) D 04/08/17 17:42 - Constitutional Appears: Well - Head Exam Head Exam: ATRAUMATIC, NORMAL INSPECTION, NORMOCEPHALIC - Eye Exam Eye Exam: EOMI, Normal appearance, PERRL Pupil Exam: NORMAL ACCOMODATION, PERRL - ENT Exam ENT Exam: Mucous Membranes Moist, Normal Exam - Neck Exam Neck Exam: Full ROM, Normal Inspection. absent: Lymphadenopathy - Respiratory Exam Respiratory Exam: Decreased Breath Sounds - Cardiovascular Exam Cardiovascular Exam: REGULAR RHYTHM, +S1, +S2 - GI/Abdominal Exam GI & Abdominal Exam: Soft, Diminished Bowel Sounds - Rectal Exam Rectal Exam: Deferred Assessment and Plan (1) Bleeding Status: Acute (2) Bleeding from breast Status: Acute (3) Breast cancer Status: Acute (4) DIC (disseminated intravascular coagulation) Status: Acute (5) Leukocytosis Status: Acute (6) Skin irritation Status: Acute (7) Tachycardia Status: Acute (8) Thrombocytopenia Status: Acute (9) Anemia Status: Acute (10) Anemia Status: Acute (11) Breast cancer Status: Acute (12) Breast mass, left Status: Acute (13) Chest pain Status: Acute (14) Clinical decompensation Status: Acute (15) Constipation Status: Acute (16) Invasive ductal carcinoma of breast, stage 3 Status: Acute (17) Malnutrition Status: Acute (18) 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
[2017-04-15 00:25] VITALS: RESP 20
[2017-04-15] MEDS: Potassium Chloride 20 mEq ER Tab PO SCH (08:05)
[2017-04-15] MEDS: Saccharomyces Boulardi 250 mg Cap PO SCH (09:22)
[2017-04-15] MEDS: Pantoprazole 40 mg EC Tab PO SCH (09:22)
--- NOTE | 2017-04-15 14:16 | CP.PCM.PN ---
Subjective - Date & Time of Evaluation Date of Evaluation: 04/15/17 Time of Evaluation: 07:20 - Subjective Subjective: clinically same Objective - Vital Signs/Intake and Output Vital Signs (last 24 hours): Temp Pulse Resp BP Pulse Ox 98 F 82 20 99/63 L 99 04/15/17 08:00 04/15/17 08:00 04/15/17 08:00 04/15/17 08:00 04/15/17 08:00 Intake and Output: 04/15/17 04/15/17 06:59 18:59 Intake Total 620 Output Total 650 Balance -30 - Medications Medications: Current Medications Acetaminophen (Tylenol 325mg Tab) 650 mg PO Q4 PRN PRN Reason: Pain, Mild (1-3) Ondansetron HCl (Zofran Odt) 8 mg PO Q8H PRN PRN Reason: Nausea/Vomiting Pantoprazole Sodium (Protonix Ec Tab) 40 mg PO DAILY [facility] Last Admin: 04/15/17 09:22 Dose: Not Given Potassium Chloride (K-Dur 20 Meq Er Tab) 40 meq PO BRK [facility] Last Admin: 04/15/17 08:05 Dose: 40 meq Saccharomyces Boulardii (Florastor) 250 mg PO DAILY [facility] Last Admin: 04/15/17 09:22 Dose: Not Given - Labs Labs: 04/14/17 07:10 04/14/17 07:10 PT 13.4 SECONDS (9.7-12.2) H 04/08/17 17:42 INR 1.2 04/08/17 17:42 APTT 25 SECONDS (21-34) D 04/08/17 17:42 - Constitutional Appears: Well - Head Exam Head Exam: ATRAUMATIC, NORMAL INSPECTION, NORMOCEPHALIC - Eye Exam Eye Exam: EOMI, Normal appearance, PERRL Pupil Exam: NORMAL ACCOMODATION, PERRL - ENT Exam ENT Exam: Mucous Membranes Moist, Normal Exam - Neck Exam Neck Exam: Full ROM, Normal Inspection. absent: Lymphadenopathy - Respiratory Exam Respiratory Exam: Decreased Breath Sounds - Cardiovascular Exam Cardiovascular Exam: REGULAR RHYTHM, +S1, +S2 - GI/Abdominal Exam GI & Abdominal Exam: Soft, Diminished Bowel Sounds - Rectal Exam Rectal Exam: Deferred Assessment and Plan (1) Bleeding Status: Acute (2) Bleeding from breast Status: Acute (3) Breast cancer Status: Acute (4) DIC (disseminated intravascular coagulation) Status: Acute (5) Leukocytosis Status: Acute (6) Skin irritation Status: Acute (7) Tachycardia Status: Acute (8) Thrombocytopenia Status: Acute (9) Anemia Status: Acute (10) Anemia Status: Acute (11) Breast cancer Status: Acute (12) Breast mass, left Status: Acute (13) Chest pain Status: Acute (14) Clinical decompensation Status: Acute (15) Constipation Status: Acute (16) Invasive ductal carcinoma of breast, stage 3 Status: Acute (17) Malnutrition Status: Acute (18) 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
[2017-04-16] MEDS: Potassium Chloride 20 mEq ER Tab PO SCH (07:45)
[2017-04-16 08:17] LABS: BASO % 0.6 % (0.0-2.0); EOS # 0.4 K/uL (0.0-0.7); EOS % 5.5 % (0.0-4.0); HEMATOCRIT 28.2 % (34.0-47.0); LYMPH # 1.1 K/uL (1.0-4.3); MEAN CELL VOLUME 81.3 fL (81.0-99.0); MEAN CORPUSCULAR HEMOGLOBIN 28.4 pg (27.0-31.0); MEAN PLATELET VOLUME 7.2 fL (7.2-11.7); MONO # 0.7 K/uL (0.0-0.8); MONO % 10.7 % (0.0-10.0); NRBC % 0.1 % (0.0-2.0); RED CELL DISTRIBUTION WIDTH 24.5 % (11.5-14.5)
[2017-04-16 08:35] LABS: ALB/GLOB RATIO 0.9 (1.0-2.1); ALKALINE PHOSPHATASE 81 U/L (38-126); ALT/SGPT 15 U/L (9-52); AST/SGOT 16 U/L (14-36); BILIRUBIN,TOTAL 0.6 mg/dL (0.2-1.3); BLOOD UREA NITROGEN 10 mg/dL (7-17); CARBON DIOXIDE 26 mmol/L (22-30); CHLORIDE 101 mmol/L (98-107); GFR AFRICAN-AMERICAN > 60; GLUCOSE,RANDOM 80 mg/dL (65-105); POTASSIUM 3.6 mmol/L (3.6-5.2); SODIUM 133 mmol/L (132-148); TOTAL PROTEIN 5.8 g/dL (6.3-8.3)
[2017-04-16] MEDS: Saccharomyces Boulardi 250 mg Cap PO SCH (09:05)
[2017-04-16] MEDS: Pantoprazole 40 mg EC Tab PO SCH (09:05)
--- NOTE | 2017-04-16 12:09 | CP.PCM.PN ---
Subjective - Date & Time of Evaluation Date of Evaluation: 04/15/17 Time of Evaluation: 06:20 - Subjective Subjective: General Surgery- Dr. Trinidad Patient seen and examined at bedside this AM. no acute events overnight. Dressing was changed at bedside this AM. tolerating diet. Denies F/C CP/SOB N/V/ D SANTOS Objective - Vital Signs/Intake and Output Vital Signs (last 24 hours): Temp Pulse Resp BP Pulse Ox 98.2 F 87 20 102/64 98 04/16/17 08:16 04/16/17 08:16 04/16/17 08:16 04/16/17 08:16 04/16/17 08:16 Intake and Output: 04/16/17 04/16/17 06:59 18:59 Intake Total 440 Output Total 600 Balance -160 - Medications Medications: Current Medications Acetaminophen (Tylenol 325mg Tab) 650 mg PO Q4 PRN PRN Reason: Pain, Mild (1-3) Ondansetron HCl (Zofran Odt) 8 mg PO Q8H PRN PRN Reason: Nausea/Vomiting Pantoprazole Sodium (Protonix Ec Tab) 40 mg PO DAILY [facility] Last Admin: 04/16/17 09:05 Dose: Not Given Potassium Chloride (K-Dur 20 Meq Er Tab) 40 meq PO BRK [facility] Last Admin: 04/16/17 07:45 Dose: 40 meq Saccharomyces Boulardii (Florastor) 250 mg PO DAILY [facility] Last Admin: 04/16/17 09:05 Dose: Not Given - Labs Labs: 04/16/17 07:45 04/16/17 07:45 PT 13.4 SECONDS (9.7-12.2) H 04/08/17 17:42 INR 1.2 04/08/17 17:42 APTT 25 SECONDS (21-34) D 04/08/17 17:42 - Constitutional Appears: Non-toxic, No Acute Distress - Eye Exam Eye Exam: EOMI. absent: Scleral icterus - ENT Exam ENT Exam: absent: Mucous Membranes Moist - Respiratory Exam Respiratory Exam: NORMAL BREATHING PATTERN. absent: Accessory Muscle Use, Respiratory Distress - Cardiovascular Exam Cardiovascular Exam: +S1, +S2. absent: Bradycardia, Tachycardia - GI/Abdominal Exam GI & Abdominal Exam: Soft. absent: Distended, Firm, Guarding, Tenderness - Exam Additional comments: Breast exam: dressing changed at bedside. extensively irrigated, xeroform 4x4, abd, and tape was applied. - Neurological Exam Neurological Exam: Alert, Awake, Oriented x3 - Skin Skin Exam: Normal Color, Warm Assessment and Plan - Assessment and Plan (Free Text) Assessment: 51F L. invasive ductal CA w/ pedunculated fungating breast mass s/p embolization & jared placement Plan: - dressing change today * dressing change q2 - pain control PRN - monitor bandage - d/w Dr. Amos Ma PGY1
--- NOTE | 2017-04-16 16:47 | CP.PCM.PN ---
Subjective - Date & Time of Evaluation Date of Evaluation: 04/16/17 Time of Evaluation: 07:20 - Subjective Subjective: clinically same Objective - Vital Signs/Intake and Output Vital Signs (last 24 hours): Temp Pulse Resp BP Pulse Ox 98.5 F 112 H 20 103/69 94 L 04/16/17 16:43 04/16/17 16:43 04/16/17 16:43 04/16/17 16:43 04/16/17 16:43 Intake and Output: 04/16/17 04/16/17 06:59 18:59 Intake Total 440 200 Output Total 600 400 Balance -160 -200 - Medications Medications: Current Medications Acetaminophen (Tylenol 325mg Tab) 650 mg PO Q4 PRN PRN Reason: Pain, Mild (1-3) Ondansetron HCl (Zofran Odt) 8 mg PO Q8H PRN PRN Reason: Nausea/Vomiting Pantoprazole Sodium (Protonix Ec Tab) 40 mg PO DAILY [facility] Last Admin: 04/16/17 09:05 Dose: Not Given Potassium Chloride (K-Dur 20 Meq Er Tab) 40 meq PO BRK [facility] Last Admin: 04/16/17 07:45 Dose: 40 meq Saccharomyces Boulardii (Florastor) 250 mg PO DAILY [facility] Last Admin: 04/16/17 09:05 Dose: Not Given - Labs Labs: 04/16/17 07:45 04/16/17 07:45 PT 13.4 SECONDS (9.7-12.2) H 04/08/17 17:42 INR 1.2 04/08/17 17:42 APTT 25 SECONDS (21-34) D 04/08/17 17:42 Assessment and Plan (1) Bleeding Status: Acute (2) Bleeding from breast Status: Acute (3) Breast cancer Status: Acute (4) DIC (disseminated intravascular coagulation) Status: Acute (5) Leukocytosis Status: Acute (6) Skin irritation Status: Acute (7) Tachycardia Status: Acute (8) Thrombocytopenia Status: Acute (9) Anemia Status: Acute (10) Anemia Status: Acute (11) Breast cancer Status: Acute (12) Breast mass, left Status: Acute (13) Chest pain Status: Acute (14) Clinical decompensation Status: Acute (15) Constipation Status: Acute (16) Invasive ductal carcinoma of breast, stage 3 Status: Acute (17) Malnutrition Status: Acute (18) 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
--- NOTE | 2017-04-16 20:34 | CP.PCM.PN ---
Subjective - Date & Time of Evaluation Date of Evaluation: 04/16/17 Time of Evaluation: 06:10 - Subjective Subjective: General surgery- Dr. Trinidad Pt S&E at bedside this AM. no acute events overnight. pt denies feeling additional bleeding or strikethrough of L. Breast dressing. Denies F/C CP/SOB N/ V/D Objective - Vital Signs/Intake and Output Vital Signs (last 24 hours): Temp Pulse Resp BP Pulse Ox 98.5 F 112 H 20 103/69 94 L 04/16/17 16:43 04/16/17 16:43 04/16/17 16:43 04/16/17 16:43 04/16/17 16:43 Intake and Output: 04/16/17 04/17/17 18:59 06:59 Intake Total 200 Output Total 400 Balance -200 - Medications Medications: Current Medications Acetaminophen (Tylenol 325mg Tab) 650 mg PO Q4 PRN PRN Reason: Pain, Mild (1-3) Ondansetron HCl (Zofran Odt) 8 mg PO Q8H PRN PRN Reason: Nausea/Vomiting Pantoprazole Sodium (Protonix Ec Tab) 40 mg PO DAILY [facility] Last Admin: 04/16/17 09:05 Dose: Not Given Potassium Chloride (K-Dur 20 Meq Er Tab) 40 meq PO BRK [facility] Last Admin: 04/16/17 07:45 Dose: 40 meq Saccharomyces Boulardii (Florastor) 250 mg PO DAILY [facility] Last Admin: 04/16/17 09:05 Dose: Not Given - Labs Labs: 04/16/17 07:45 04/16/17 07:45 PT 13.4 SECONDS (9.7-12.2) H 04/08/17 17:42 INR 1.2 04/08/17 17:42 APTT 25 SECONDS (21-34) D 04/08/17 17:42 - Constitutional Appears: Non-toxic, No Acute Distress - Head Exam Head Exam: ATRAUMATIC - Eye Exam Eye Exam: EOMI. absent: Scleral icterus - ENT Exam ENT Exam: Mucous Membranes Moist - Respiratory Exam Respiratory Exam: absent: Accessory Muscle Use, Respiratory Distress - Cardiovascular Exam Cardiovascular Exam: +S1, +S2. absent: Bradycardia, Tachycardia - GI/Abdominal Exam GI & Abdominal Exam: Soft. absent: Distended, Firm, Guarding, Rigid, Tenderness - Exam Additional comments: Breast: L. breast dressing C/D/I minimal strike through, not saturated through - Extremities Exam Extremities Exam: Calf Tenderness. absent: Normal Inspection - Neurological Exam Neurological Exam: Alert, Awake, Oriented x3 - Psychiatric Exam Psychiatric exam: Normal Affect - Skin Skin Exam: Intact, Warm Assessment and Plan - Assessment and Plan (Free Text) Assessment: 51F L. invasive ductal CA w/ pedunculated fungating breast mass s/p embolization & jared placement - Dressing change tomorrow - pain control PRN - monitor bandage - d/w Dr. Amos Ma PGY1
[2017-04-17] MEDS: Saccharomyces Boulardi 250 mg Cap PO SCH ×2 (10:41→11:04)
[2017-04-17] MEDS: Pantoprazole 40 mg EC Tab PO SCH ×2 (10:41→11:04)
[2017-04-17] MEDS: Potassium Chloride 20 mEq ER Tab PO SCH ×2 (10:41→10:54)
--- NOTE | 2017-04-17 10:56 | CP.PCM.PN ---
Subjective - Date & Time of Evaluation Date of Evaluation: 04/17/17 Time of Evaluation: 07:15 - Subjective Subjective: PGY2 Resident - Medicine Progress Note Patient seen and examined at bedside. No acute distress. No overnight events. Patient reports pain is well controlled s/p sugical intervention of L breast mass on 04/07/17. She is tolerating her pureed diet. Denies fever, chills, headache, chest pain, palpitations, dyspnea, cough, abdominal pain, nausea/ vomiting, diarrhea/constipation, or any additional acute complaints. Objective - Vital Signs/Intake and Output Vital Signs (last 24 hours): Temp Pulse Resp BP Pulse Ox 97.7 F 95 H 20 97/60 L 98 04/17/17 08:01 04/17/17 08:01 04/17/17 08:01 04/17/17 08:01 04/17/17 08:01 Intake and Output: 04/17/17 04/17/17 06:59 18:59 Intake Total 370 Output Total 500 Balance -130 - Medications Medications: Current Medications Acetaminophen (Tylenol 325mg Tab) 650 mg PO Q4 PRN PRN Reason: Pain, Mild (1-3) Ondansetron HCl (Zofran Odt) 8 mg PO Q8H PRN PRN Reason: Nausea/Vomiting Pantoprazole Sodium (Protonix Ec Tab) 40 mg PO DAILY [facility] Last Admin: 04/17/17 10:41 Dose: 40 mg Potassium Chloride (K-Dur 20 Meq Er Tab) 40 meq PO BRK [facility] Last Admin: 04/17/17 10:41 Dose: 40 meq Saccharomyces Boulardii (Florastor) 250 mg PO DAILY [facility] Last Admin: 04/17/17 10:41 Dose: 250 mg - Labs Labs: 04/16/17 07:45 04/16/17 07:45 PT 13.4 SECONDS (9.7-12.2) H 04/08/17 17:42 INR 1.2 04/08/17 17:42 APTT 25 SECONDS (21-34) D 04/08/17 17:42 - Additional Findings Additional findings: - Constitutional Appears: Non-toxic, No Acute Distress - Head Exam Head Exam: ATRAUMATIC - Eye Exam Eye Exam: EOMI - ENT Exam ENT Exam: Mucous Membranes Moist - Neck Exam Neck Exam: Full ROM - Respiratory Exam Respiratory Exam: Clear to Ausculation Bilateral; absent: Accessory Muscle Use , Respiratory Distress - Cardiovascular Exam Cardiovascular Exam: REGULAR RHYTHM, +S1, +S2 - Extremities Exam Extremities Exam: Full ROM. absent: Calf Tenderness - Back Exam Back Exam: absent: CVA tenderness (L), CVA tenderness (R) - Neurological Exam Neurological Exam: Alert, Awake, Oriented x3 - Psychiatric Exam Psychiatric exam: Normal Affect, Normal Mood. - Skin Skin Exam: Warm Additional comments: L breast dressing CDI, no bleeding noted, no saturation. Assessment and Plan - Assessment and Plan (Free Text) Assessment: 51F with L. invasive ductal CA s/p embolization & jared placement (note: pedunculated fungating breast mass fell off spontaneously). 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 montior. dressing changed by surgical team today. Pain well controlled. -stable at this point; H/H stable -dressing changes as per surgery -pain control Proph SCD 2/2 to bleeding; no lovenox even though in hypercoaguable state; patient understands risks Protonix OOB as tolerated Disposition: Patient will be discharged home with nursing visits for home wound care Q2D (script in chart). Medicine team will f/u with Dr. Holt regarding outpatient chemo therapy treatment. Case discussed with attending physician; all management as per Dr. Gisella Martinez
--- NOTE | 2017-04-17 11:46 | CP.PCM.PN ---
Subjective - Date & Time of Evaluation Date of Evaluation: 04/17/17 Time of Evaluation: 07:15 - Subjective Subjective: General Surgery Note for Dr. Trinidad Patient seen and exam at bedside. No acute event overnight. patient had dressing changed today and the breast mass was found to be autoamputated. Patient recently had angioembolization to stop the bleeding. Wound still has foul odor. No bleeding. Patient denies pain. Objective - Vital Signs/Intake and Output Vital Signs (last 24 hours): Temp Pulse Resp BP Pulse Ox 97.7 F 95 H 20 97/60 L 98 04/17/17 08:01 04/17/17 08:01 04/17/17 08:01 04/17/17 08:01 04/17/17 08:01 Intake and Output: 04/17/17 04/17/17 06:59 18:59 Intake Total 370 Output Total 500 Balance -130 - Medications Medications: Current Medications Acetaminophen (Tylenol 325mg Tab) 650 mg PO Q4 PRN PRN Reason: Pain, Mild (1-3) Ondansetron HCl (Zofran Odt) 8 mg PO Q8H PRN PRN Reason: Nausea/Vomiting Pantoprazole Sodium (Protonix Ec Tab) 40 mg PO DAILY [facility] Last Admin: 04/17/17 11:04 Dose: Not Given Potassium Chloride (K-Dur 20 Meq Er Tab) 40 meq PO BRK [facility] Last Admin: 04/17/17 10:54 Dose: Not Given Saccharomyces Boulardii (Florastor) 250 mg PO DAILY [facility] Last Admin: 04/17/17 11:04 Dose: Not Given - Labs Labs: 04/16/17 07:45 04/16/17 07:45 PT 13.4 SECONDS (9.7-12.2) H 04/08/17 17:42 INR 1.2 04/08/17 17:42 APTT 25 SECONDS (21-34) D 04/08/17 17:42 - Constitutional Appears: No Acute Distress - Head Exam Head Exam: ATRAUMATIC, NORMOCEPHALIC - Eye Exam Eye Exam: Normal appearance - ENT Exam ENT Exam: Mucous Membranes Moist - Respiratory Exam Respiratory Exam: NORMAL BREATHING PATTERN - Cardiovascular Exam Cardiovascular Exam: REGULAR RHYTHM - GI/Abdominal Exam GI & Abdominal Exam: Soft. absent: Tenderness - Neurological Exam Neurological Exam: Alert, Awake, Oriented x3 - Psychiatric Exam Psychiatric exam: Normal Affect, Normal Mood - Skin Skin Exam: Dry, Warm Additional comments: Breast: L. breast with necrotic wound, jared still on pedicle, foul odor Assessment and Plan - Assessment and Plan (Free Text) Plan: 51 F L invasive ductal CA with pedunculated fungating breast mass s/p angioembolization, s/p autoamputation of necrotic mass -Dressing changed today -Change dressing every other day or more frequent if needed -f/u Heme/Onc recommendations -Management as per primary -Discussed with Dr. Amos Rico PGY1
[2017-04-17 12:09] LABS: BASO % 0.4 % (0.0-2.0); EOS # 0.2 K/uL (0.0-0.7); EOS % 2.6 % (0.0-4.0); HEMATOCRIT 27.7 % (34.0-47.0); LYMPH # 0.7 K/uL (1.0-4.3); LYMPH % 8.4 % (20.0-40.0); MEAN CELL VOLUME 81.6 fL (81.0-99.0); MEAN CORPUSCULAR HEMOGLOBIN 28.4 pg (27.0-31.0); MEAN CORPUSCULAR HGB CONC 34.8 g/dL (33.0-37.0); MEAN PLATELET VOLUME 7.2 fL (7.2-11.7); MONO # 0.6 K/uL (0.0-0.8); MONO % 7.6 % (0.0-10.0); PLATELET COUNT 359 K/uL (130-400); RED CELL DISTRIBUTION WIDTH 24.7 % (11.5-14.5); WHITE BLOOD COUNT 7.8 K/uL (4.8-10.8)
[2017-04-17 13:13] LABS: ALB/GLOB RATIO 0.9 (1.0-2.1); ALKALINE PHOSPHATASE 85 U/L (38-126); ALT/SGPT 24 U/L (9-52); AST/SGOT 24 U/L (14-36); BILIRUBIN,TOTAL 0.6 mg/dL (0.2-1.3); BLOOD UREA NITROGEN 13 mg/dL (7-17); CALCIUM 8.1 mg/dl (8.6-10.4); CARBON DIOXIDE 26 mmol/L (22-30); CHLORIDE 101 mmol/L (98-107); GFR AFRICAN-AMERICAN > 60; GLUCOSE,RANDOM 104 mg/dL (65-105); MAGNESIUM 1.7 mg/dL (1.6-2.3); PHOSPHOROUS 3.7 mg/dL (2.5-4.5); POTASSIUM 3.6 mmol/L (3.6-5.2); SODIUM 132 mmol/L (132-148); TOTAL PROTEIN 5.9 g/dL (6.3-8.3)
[2017-04-17 13:42] LABS: EOSINOPHIL 2 % (0-4); NEUTROPHIL 75 % (50-75); TOTAL CELLS COUNTED 100
--- NOTE | 2017-04-17 20:05 | CP.PCM.PN ---
Subjective - Date & Time of Evaluation Date of Evaluation: 04/17/17 Time of Evaluation: 07:20 - Subjective Subjective: clinically same Objective - Vital Signs/Intake and Output Vital Signs (last 24 hours): Temp Pulse Resp BP Pulse Ox 98.8 F 99 H 20 106/71 99 04/17/17 15:00 04/17/17 15:00 04/17/17 15:00 04/17/17 15:00 04/17/17 15:00 Intake and Output: 04/17/17 04/18/17 18:59 06:59 Intake Total 300 Output Total 100 Balance 200 - Medications Medications: Current Medications Acetaminophen (Tylenol 325mg Tab) 650 mg PO Q4 PRN PRN Reason: Pain, Mild (1-3) Ondansetron HCl (Zofran Odt) 8 mg PO Q8H PRN PRN Reason: Nausea/Vomiting Pantoprazole Sodium (Protonix Ec Tab) 40 mg PO DAILY [facility] Last Admin: 04/17/17 11:04 Dose: Not Given Potassium Chloride (K-Dur 20 Meq Er Tab) 40 meq PO BRK [facility] Last Admin: 04/17/17 10:54 Dose: Not Given Saccharomyces Boulardii (Florastor) 250 mg PO DAILY [facility] Last Admin: 04/17/17 11:04 Dose: Not Given - Labs Labs: 04/17/17 11:49 04/17/17 11:49 PT 13.4 SECONDS (9.7-12.2) H 04/08/17 17:42 INR 1.2 04/08/17 17:42 APTT 25 SECONDS (21-34) D 04/08/17 17:42 Assessment and Plan (1) Bleeding Status: Acute (2) Bleeding from breast Status: Acute (3) Breast cancer Status: Acute (4) DIC (disseminated intravascular coagulation) Status: Acute (5) Leukocytosis Status: Acute (6) Skin irritation Status: Acute (7) Tachycardia Status: Acute (8) Thrombocytopenia Status: Acute (9) Anemia Status: Acute (10) Anemia Status: Acute (11) Breast cancer Status: Acute (12) Breast mass, left Status: Acute (13) Chest pain Status: Acute (14) Clinical decompensation Status: Acute (15) Constipation Status: Acute (16) Invasive ductal carcinoma of breast, stage 3 Status: Acute (17) Malnutrition Status: Acute (18) 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
[2017-04-18 07:06] LABS: BASO % 0.6 % (0.0-2.0); EOS # 0.3 K/uL (0.0-0.7); EOS % 4.1 % (0.0-4.0); HEMATOCRIT 27.2 % (34.0-47.0); LYMPH # 0.9 K/uL (1.0-4.3); MEAN CELL VOLUME 82.4 fL (81.0-99.0); MEAN CORPUSCULAR HEMOGLOBIN 27.7 pg (27.0-31.0); MEAN CORPUSCULAR HGB CONC 33.7 g/dL (33.0-37.0); MEAN PLATELET VOLUME 7.1 fL (7.2-11.7); MONO # 0.6 K/uL (0.0-0.8); MONO % 9.3 % (0.0-10.0); WHITE BLOOD COUNT 6.8 K/uL (4.8-10.8)
[2017-04-18 07:47] LABS: ALB/GLOB RATIO 0.9 (1.0-2.1); ALKALINE PHOSPHATASE 84 U/L (38-126); ALT/SGPT 20 U/L (9-52); AST/SGOT 17 U/L (14-36); BILIRUBIN,TOTAL 0.6 mg/dL (0.2-1.3); BLOOD UREA NITROGEN 15 mg/dL (7-17); CARBON DIOXIDE 23 mmol/L (22-30); CHLORIDE 100 mmol/L (98-107); GFR AFRICAN-AMERICAN > 60; GLUCOSE,RANDOM 83 mg/dL (65-105); MAGNESIUM 1.6 mg/dL (1.6-2.3); PHOSPHOROUS 3.6 mg/dL (2.5-4.5); POTASSIUM 3.5 mmol/L (3.6-5.2); SODIUM 132 mmol/L (132-148); TOTAL PROTEIN 5.9 g/dL (6.3-8.3)
[2017-04-18] MEDS ORDERED: Potassium Chloride 20 mEq/15 ml LIQ UD PO SCH (08:00)
[2017-04-18] MEDS ORDERED: Potassium Chloride 20 mEq ER Tab PO STA (08:22)
[2017-04-18 08:25] VITALS: O2SAT 98
[2017-04-18] MEDS ORDERED: Potassium Chloride 20 mEq/15 ml LIQ UD PO STA (09:08)
[2017-04-18] MEDS: Saccharomyces Boulardi 250 mg Cap PO SCH (09:36)
[2017-04-18] MEDS: Pantoprazole 40 mg EC Tab PO SCH (09:37)
[2017-04-18] MEDS ORDERED: Petrolatum Oint Foilpak (5 gm) TOP PRN (10:00)
--- NOTE | 2017-04-18 10:14 | CP.PCM.PN ---
Subjective - Date & Time of Evaluation Date of Evaluation: 04/18/17 Time of Evaluation: 10:12 - Subjective Subjective: PGY2 Note for Dr. Gisella Martinez; all management as per Dr. Martinez This patient was seen and examined at bedside this AM; she has no complaints; she is tolerating diet well; she has no pain at the site where her mass was; she denies all symptoms; she wishes to go home as soon as possible. Will set up visiting nurse for wound changes. Objective - Vital Signs/Intake and Output Vital Signs (last 24 hours): Temp Pulse Resp BP Pulse Ox 98 F 90 20 106/66 98 04/18/17 08:24 04/18/17 08:24 04/18/17 08:24 04/18/17 08:24 04/18/17 08:24 Intake and Output: 04/18/17 04/18/17 06:59 18:59 Intake Total 420 Output Total 400 Balance 20 - Medications Medications: Current Medications Acetaminophen (Tylenol 325mg Tab) 650 mg PO Q4 PRN PRN Reason: Pain, Mild (1-3) Emollient Ointment (Vaseline Oint) 5 gm TOP BID PRN PRN Reason: DRY LIPS Ondansetron HCl (Zofran Odt) 8 mg PO Q8H PRN PRN Reason: Nausea/Vomiting Pantoprazole Sodium (Protonix Ec Tab) 40 mg PO DAILY [facility] Last Admin: 04/18/17 09:37 Dose: Not Given Potassium Chloride (Potassium Chloride Oral Soln) 40 meq PO BRK [facility] Saccharomyces Boulardii (Florastor) 250 mg PO DAILY [facility] Last Admin: 04/18/17 09:36 Dose: Not Given - Labs Labs: 04/18/17 06:50 04/18/17 06:50 PT 13.4 SECONDS (9.7-12.2) H 04/08/17 17:42 INR 1.2 04/08/17 17:42 APTT 25 SECONDS (21-34) D 04/08/17 17:42 - Constitutional Appears: Non-toxic, Chronically Ill - Head Exam Head Exam: ATRAUMATIC - Eye Exam Eye Exam: EOMI - ENT Exam ENT Exam: Mucous Membranes Moist - Neck Exam Neck Exam: Full ROM - Respiratory Exam Respiratory Exam: Clear to Ausculation Bilateral - Cardiovascular Exam Cardiovascular Exam: REGULAR RHYTHM - GI/Abdominal Exam GI & Abdominal Exam: Soft - Extremities Exam Extremities Exam: absent: Calf Tenderness - Back Exam Back Exam: absent: CVA tenderness (L), CVA tenderness (R) - Neurological Exam Neurological Exam: Alert, Awake, Oriented x3 - Psychiatric Exam Psychiatric exam: Normal Affect - Skin Skin Exam: Warm Assessment and Plan - Assessment and Plan (Free Text) Assessment: 51F with L. invasive ductal CA s/p embolization & jared placement (note: pedunculated fungating breast mass fell off spontaneously). 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 Pain well controlled. -stable at this point; H/H stable -dressing changes as per surgery -pain control -surgery has signed off; she will need to f/u with surgery as outpatient; recommending visiting nurse for wound changes; change every other day -patients hemoglobin has been stable for 1 week Proph SCD 2/2 to bleeding; no lovenox even though in hypercoaguable state; patient understands risks Protonix OOB as tolerated Disposition: Patient will be discharged home with nursing visits for home wound care Q2D (script in chart). Medicine team will f/u with Dr. Holt regarding outpatient chemo therapy treatment. Case discussed with attending physician; all management as per Dr. Gisella Martinez
--- NOTE | 2017-04-18 15:58 | CP.PCM.PN ---
Subjective - Date & Time of Evaluation Date of Evaluation: 04/18/17 Time of Evaluation: 07:20 - Subjective Subjective: clinically same Objective - Vital Signs/Intake and Output Vital Signs (last 24 hours): Temp Pulse Resp BP Pulse Ox 98 F 90 20 106/66 98 04/18/17 08:24 04/18/17 08:24 04/18/17 08:24 04/18/17 08:24 04/18/17 08:24 Intake and Output: 04/18/17 04/18/17 06:59 18:59 Intake Total 420 250 Output Total 400 Balance 20 250 - Medications Medications: Current Medications Acetaminophen (Tylenol 325mg Tab) 650 mg PO Q4 PRN PRN Reason: Pain, Mild (1-3) Emollient Ointment (Vaseline Oint) 5 gm TOP BID PRN PRN Reason: DRY LIPS Last Admin: 04/18/17 11:52 Dose: 5 gm Ondansetron HCl (Zofran Odt) 8 mg PO Q8H PRN PRN Reason: Nausea/Vomiting Pantoprazole Sodium (Protonix Ec Tab) 40 mg PO DAILY [facility] Last Admin: 04/18/17 09:37 Dose: Not Given Potassium Chloride (Potassium Chloride Oral Soln) 40 meq PO BRK [facility] Saccharomyces Boulardii (Florastor) 250 mg PO DAILY [facility] Last Admin: 04/18/17 09:36 Dose: Not Given - Labs Labs: 04/18/17 06:50 04/18/17 06:50 PT 13.4 SECONDS (9.7-12.2) H 04/08/17 17:42 INR 1.2 04/08/17 17:42 APTT 25 SECONDS (21-34) D 04/08/17 17:42 Assessment and Plan (1) Bleeding Status: Acute (2) Bleeding from breast Status: Acute (3) Breast cancer Status: Acute (4) DIC (disseminated intravascular coagulation) Status: Acute (5) Leukocytosis Status: Acute (6) Skin irritation Status: Acute (7) Tachycardia Status: Acute (8) Thrombocytopenia Status: Acute (9) Anemia Status: Acute (10) Anemia Status: Acute (11) Breast cancer Status: Acute (12) Breast mass, left Status: Acute (13) Chest pain Status: Acute (14) Clinical decompensation Status: Acute (15) Constipation Status: Acute (16) Invasive ductal carcinoma of breast, stage 3 Status: Acute (17) Malnutrition Status: Acute (18) 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
--- NOTE | 2017-04-18 15:59 | CP.PCM.PCO ---
Physician Communication Note - Physician Communication Note Physician Communication Note: Dressing changed with xeroform/gauze/abd pads. Patient clear for D/C.
[2017-04-18 16:50] VITALS: BP 127/71; PULSE 106; TEMP 98.4
--- NOTE | 2017-04-18 19:54 | CP.PCM.PN ---
Subjective - Date & Time of Evaluation Date of Evaluation: 04/18/17 Time of Evaluation: 17:00 - Subjective Subjective: No complaints. Objective - Vital Signs/Intake and Output Vital Signs (last 24 hours): Temp Pulse Resp BP Pulse Ox 98.4 F 106 H 20 127/71 98 04/18/17 16:00 04/18/17 16:00 04/18/17 16:00 04/18/17 16:00 04/18/17 16:00 Intake and Output: 04/18/17 04/19/17 18:59 06:59 Intake Total 250 Balance 250 - Medications Medications: Current Medications Acetaminophen (Tylenol 325mg Tab) 650 mg PO Q4 PRN PRN Reason: Pain, Mild (1-3) Emollient Ointment (Vaseline Oint) 5 gm TOP BID PRN PRN Reason: DRY LIPS Last Admin: 04/18/17 11:52 Dose: 5 gm Ondansetron HCl (Zofran Odt) 8 mg PO Q8H PRN PRN Reason: Nausea/Vomiting Pantoprazole Sodium (Protonix Ec Tab) 40 mg PO DAILY [facility] Last Admin: 04/18/17 09:37 Dose: Not Given Potassium Chloride (Potassium Chloride Oral Soln) 40 meq PO BRK [facility] Saccharomyces Boulardii (Florastor) 250 mg PO DAILY [facility] Last Admin: 04/18/17 09:36 Dose: Not Given - Labs Labs: 04/18/17 06:50 04/18/17 06:50 PT 13.4 SECONDS (9.7-12.2) H 04/08/17 17:42 INR 1.2 04/08/17 17:42 APTT 25 SECONDS (21-34) D 04/08/17 17:42 - Head Exam Head Exam: ATRAUMATIC - Eye Exam Eye Exam: Normal appearance - ENT Exam ENT Exam: Mucous Membranes Dry - Respiratory Exam Respiratory Exam: NORMAL BREATHING PATTERN - Cardiovascular Exam Cardiovascular Exam: +S1, +S2 - GI/Abdominal Exam GI & Abdominal Exam: Normal Bowel Sounds Assessment and Plan (1) Anemia Assessment & Plan: bleeding resolved H/H stable anemia of chronic disease Status: Acute (2) Breast cancer Assessment & Plan: stage IV outpatient treatment if agreeable Status: Acute
== END 2017-04-18 19:50 | disposition home or self-care (01) | DRG 981 ==
LOC: C.ER 16:47 → C.9E 18:28 → C.3T 19:03 → C.9E 21:07 → C.9I 21:40 → C.3T 04-13 06:46
PROVIDERS: ADMIT Internal Medicine Nephrology; ATTEND Internal Medicine Nephrology
PROC: 06HN33Z Insertion of Infusion Device into Left Femoral Vein, Percutaneous Approach (ICD-10-PCS; 2017-04-06)
PROC: 03L Upper Arteries, Occlusion (ICD-10-PCS; principal; 2017-04-07)
PROC: 03L Upper Arteries, Occlusion (ICD-10-PCS; 2017-04-07)
PROC: B31N1ZZ Fluoroscopy of Other Upper Arteries using Low Osmolar Contrast (ICD-10-PCS; 2017-04-07)
DX: C50.912 Malignant neoplasm of unspecified site of left female breast (principal); D65 Disseminated intravascular coagulation [defibrination syndrome]; E46 Unspecified protein-calorie malnutrition; D62 Acute posthemorrhagic anemia; E87.1 Hypo-osmolality and hyponatremia; M06.9 Rheumatoid arthritis, unspecified; Z17.1 Estrogen receptor negative status [ER-]; K59.00 Constipation, unspecified; Z51.5 Encounter for palliative care; Z66 Do not resuscitate

== ENCOUNTER 2017-06-03 14:41 | Inpatient (IN) | payer MEDICARE, OTHER ==
[2017-06-03 14:41] VITALS: BMI 23.2
--- NOTE | 2017-06-03 14:47 | C.PDOC ---
History Of Present Illness 51 y/o female hx breast cancer with multiple episodes of bleeding that required blood transfusion. The patient was brought by ems c/o dizziness and lightheadedness. The patient states that there was bleeding on the left chest wound which started 30 mins. prior to arrival. The sister applied pressure and surgicel to the wound and was able to stop the bleeding prior to arrival. The patient denies fever and diarrhea. Time Seen by Provider: 06/03/17 14:47 Chief Complaint (Nursing): Breast Problem History Per: EMS History/Exam Limitations: no limitations Onset/Duration Of Symptoms: Hrs Current Symptoms Are (Timing): Still Present Additional History Per: EMS Past Medical History Reviewed: Historical Data, Nursing Documentation, Vital Signs Vital Signs: Last Vital Signs Temp 97.1 F L 06/08/17 18:00 Pulse 99 H 06/08/17 12:00 Resp 20 06/08/17 12:00 BP 118/78 06/08/17 12:00 Pulse Ox 100 06/07/17 00:00 - Medical History PMH: Anemia, Anxiety, Arthritis (severe athritis), Malignancy, Rheumatoid Arthritis (SEVERE CONTRACTURES) Denies: Chronic Kidney [facility] EXCISION OF LEFT BREAST, OPEN APPROACH, DIAGNOSTIC (11/06/16) FLUOROSCOPY OF OTHER UPPER ARTERIES USING L OSM CONTRAST (04/05/17) INSERTION OF INFUSION DEV INTO L FEMOR VEIN, PERC APPROACH (04/05/17) OCCLUSION OF L AXILLA ART WITH INTRALUM DEV, PERC APPROACH (04/05/17) OCCLUSION OF L INT MAMM ART WITH INTRALUM DEV, PERC APPROACH (04/05/17) Family History: States: No Known Family Hx - Social History Hx Tobacco Use: No Hx Alcohol Use: No Hx Substance Use: No - Immunization History Hx Tetanus Toxoid Vaccination: No Hx Influenza Vaccination: No Hx Pneumococcal Vaccination: No Review Of Systems Except As Marked, All Systems Reviewed And Found Negative. Constitutional: Negative for: Fever Cardiovascular: Positive for: Light Headedness, Other (wound bleeding on left chest prior to arrival ). Negative for: Chest Pain Respiratory: Negative for: Cough Gastrointestinal: Negative for: Nausea, Vomiting, Diarrhea Skin: Negative for: Rash Neurological: Positive for: Dizziness Physical Exam - Physical Exam Appears: Chronically Ill Skin: Warm, Dry, Pale Head: Atraumatic, Normacephalic Eye(s): bilateral: PERRL Oral Mucosa: Moist Lips: No Swelling Chest: Other (a large bandage on the left chest wall with small amount of blood on the band laterally to the chest wall ) Cardiovascular: Rhythm Regular Respiratory: No Accessory Muscle Use, No Rales, No Rhonchi, No Wheezing Gastrointestinal/Abdominal: Soft, No Tenderness, No Guarding, No Rebound Back: No CVA Tenderness Extremity: No Swelling Pulses: Left Femoral: Normal Neurological/Psych: Oriented x3, Other (no focal deficits) ED Course And Treatment - Laboratory Results Result Diagrams: 06/08/17 01:34 06/07/17 06:30 Central Line Placement - Central Line Placement Indication: Unable To Obtain Adequate Peripheral Access Central Line Placement: Left: Femoral Area Was Locally Anesthetized With: Lidocaine 1% Procedure: Triple Lumen, Placed Using Standard Seldinger Technique, Catheter Was Sewn Into Place, Sterile Dressing Placed Over Line, Procedure Tolerated Well Disposition - Disposition Disposition: HOSPITALIZED Disposition Time: 16:57 Condition: SERIOUS - Clinical Impression Clinical Impression: Anemia, Bleeding from breast - Scribe Statement The provider has reviewed the documentation as recorded by the Scribravindra Graf
[2017-06-03] MEDS ORDERED: Sodium Chloride 0.9% 1,000 ML IV ONE ×2 (14:49→16:58)
[2017-06-03 16:21] LABS: BASO % 0.2 % (0.0-2.0); EOS # 0.1 K/uL (0.0-0.7); EOS % 0.8 % (0.0-4.0); LYMPH # 0.7 K/uL (1.0-4.3); LYMPH % 4.1 % (20.0-40.0); MEAN CELL VOLUME 78.7 fL (81.0-99.0); MEAN CORPUSCULAR HEMOGLOBIN 25.5 pg (27.0-31.0); MEAN CORPUSCULAR HGB CONC 32.4 g/dL (33.0-37.0); MEAN PLATELET VOLUME 7.3 fL (7.2-11.7); MONO # 0.6 K/uL (0.0-0.8); MONO % 3.8 % (0.0-10.0); NEUT # 15.3 K/uL (1.8-7.0); NEUT % 91.1 % (50.0-75.0); PLATELET COUNT 302 K/uL (130-400); RBC 1.67 Mil/uL (3.80-5.20); RED CELL DISTRIBUTION WIDTH 19.8 % (11.5-14.5); WHITE BLOOD COUNT 16.8 K/uL (4.8-10.8)
[2017-06-03 16:36] LABS: ALBUMIN 2.2 g/dL (3.5-5.0); ALT/SGPT 27 U/L (9-52); AST/SGOT 41 U/L (14-36); BLOOD UREA NITROGEN 10 mg/dL (7-17); CALCIUM 7.4 mg/dl (8.6-10.4); GFR AFRICAN-AMERICAN > 60; GFR NON-AFRICAN AMERICAN > 60
[2017-06-03 16:44] LABS: HEMOGLOBIN 4.3 g/dL (11.0-16.0)
[2017-06-03 16:45] LABS: ALB/GLOB RATIO 0.6 (1.0-2.1)
[2017-06-03 18:25] LABS: INR 1.4; PROTHROMBIN TIME 15.3 SECONDS (9.7-12.2)
[2017-06-03 18:51] LABS: PLATELET ESTIMATE NORMAL (NORMAL)
[2017-06-03 18:52] LABS: ANISOCYTOSIS SLIGHT; BANDS 8 % (0-2); EOSINOPHIL 2 % (0-4); HYPOCHROMIC MODERATE; LYMPHOCYTE 6 % (20-40); MICROCYTOSIS SLIGHT; MONOCYTE 5 % (0-10); NEUTROPHIL 79 % (50-75); POIKILOCYTOSIS SLIGHT; TOTAL CELLS COUNTED 100
[2017-06-03 18:53] LABS: HYPERSEGMENTATION PRESENT; LARGE PLATELETS PRESENT; SMUDGE CELLS PRESENT
[2017-06-04 07:07] LABS: BASO % 0.2 % (0.0-2.0); EOS # 0.1 K/uL (0.0-0.7); EOS % 0.6 % (0.0-4.0); LYMPH # 1.6 K/uL (1.0-4.3); LYMPH % 12.9 % (20.0-40.0); MEAN CORPUSCULAR HGB CONC 33.7 g/dL (33.0-37.0); MEAN PLATELET VOLUME 7.4 fL (7.2-11.7); MONO # 0.7 K/uL (0.0-0.8); MONO % 5.9 % (0.0-10.0); NEUT # 9.7 K/uL (1.8-7.0); NEUT % 80.4 % (50.0-75.0); NRBC % 0.1 % (0.0-2.0); RBC 2.77 Mil/uL (3.80-5.20); RED CELL DISTRIBUTION WIDTH 17.4 % (11.5-14.5)
[2017-06-04 07:11] LABS: HEMOGLOBIN 7.7 g/dL (11.0-16.0)
[2017-06-04 07:47] LABS: ALB/GLOB RATIO 0.7 (1.0-2.1); ALBUMIN 2.4 g/dL (3.5-5.0); ALT/SGPT 28 U/L (9-52); AST/SGOT 44 U/L (14-36); BLOOD UREA NITROGEN 8 mg/dL (7-17); CALCIUM 7.9 mg/dl (8.6-10.4); GFR AFRICAN-AMERICAN > 60; GFR NON-AFRICAN AMERICAN > 60; MAGNESIUM 1.5 mg/dL (1.6-2.3)
--- NOTE | 2017-06-04 12:55 | CP.PCM.HP ---
Past Patient History - Infectious Disease Hx of Infectious Diseases: None - Past Medical History & Family History Past Medical History?: Yes - Past Social History Smoking Status: Never Smoked - CARDIAC Hx Cardiac Disorders: No - PULMONARY Hx Respiratory Disorders: No - NEUROLOGICAL Hx Neurological Disorder: No - HEENT Hx HEENT Problems: No - RENAL Hx Chronic Kidney Disease: No - ENDOCRINE/METABOLIC Hx Endocrine Disorders: No - HEMATOLOGICAL/ONCOLOGICAL Hx Anemia: Yes - INTEGUMENTARY Hx Dermatological Problems: Yes (SEE COMMENT) Other/Comment: left upper chest mass - MUSCULOSKELETAL/RHEUMATOLOGICAL Hx Arthritis: Yes Hx Falls: No Other/Comment: both arms contracted signs noted - GASTROINTESTINAL Hx Gastrointestinal Disorders: No - GENITOURINARY/GYNECOLOGICAL Hx Genitourinary Disorders: Yes (SEE COMMENT) Other/Comment: menopausal. breast CA - PSYCHIATRIC Hx Substance Use: No - SURGICAL HISTORY Hx Surgeries: Yes (SEE COMMENT) Hx Breast Biopsy: Yes (BREAST CA) Hx Section: Yes (x2) Other/Comment: d&c. cauterization done left chest - ANESTHESIA Hx Anesthesia: Yes Hx Anesthesia Reactions: No Meds Allergies/Adverse Reactions: Allergies Allergy/AdvReac Type Severity Reaction Status Date / Time ciprofloxacin [From Cipro] Allergy SWELLING Verified 06/03/17 14:52 ibuprofen Allergy Verified 06/03/17 14:52 magnesium Allergy CONGESTION Verified 06/03/17 14:52 Penicillins Allergy SWELLING Verified 06/03/17 14:52 diphenhydramine AdvReac numbness Verified 06/03/17 14:52 [From Benadryl] on tongue and throath Results - Vital Signs Recent Vital Signs: Last Vital Signs Temp 98.5 F 06/04/17 06:37 Pulse 102 H 06/04/17 06:30 Resp 13 06/04/17 06:30 BP 116/62 06/04/17 06:22 Pulse Ox 100 06/04/17 06:30 - Labs Result Diagrams: 06/04/17 07:05 06/04/17 07:05 Labs: Laboratory Results - last 24 hr 06/03/17 06/03/17 06/03/17 14:44 16:13 16:13 WBC 16.8 H D RBC 1.67 L Hgb 4.3 L* D Hct 13.1 L MCV 78.7 L D MCH 25.5 L MCHC 32.4 L RDW 19.8 H Plt Count 302 MPV 7.3 Neut % (Auto) 91.1 H Lymph % (Auto) 4.1 L [place] % (Auto) 3.8 Eos % (Auto) 0.8 Baso % (Auto) 0.2 Neut # 15.3 H Lymph # 0.7 L [place] # 0.6 Eos # 0.1 Baso # 0.0 Neutrophils % (Manual) 79 H Band Neutrophils % 8 H Lymphocytes % (Manual) 6 L Monocytes % (Manual) 5 Eosinophils % (Manual) 2 Hypersegmented Polys Present Smudge Cells Present Platelet Estimate Normal Large Platelets Present Hypochromasia (manual) Moderate Poikilocytosis (manual Slight Anisocytosis (manual) Slight Microcytosis (manual) Slight PT INR APTT Sodium 133 Potassium 3.1 L Chloride 105 Carbon Dioxide 20 L Anion Gap 11 BUN 10 Creatinine 0.3 L Est GFR ( Amer) > 60 Est GFR (Non-Af Amer) > 60 POC Glucose (mg/dL) 165 H Random Glucose 144 H Calcium 7.4 L Phosphorus Magnesium Total Bilirubin 1.0 AST 41 H D ALT 27 Alkaline Phosphatase 124 Total Protein 5.6 L Albumin 2.2 L D Globulin 3.4 Albumin/Globulin Ratio 0.6 L Blood Type Antibody Screen Antibody Identification 06/03/17 06/03/17 06/04/17 16:44 18:05 07:05 WBC 12.0 H RBC 2.77 L Hgb 7.7 L D Hct 23.0 L MCV 83.0 D MCH 28.0 MCHC 33.7 RDW 17.4 H Plt Count 246 MPV 7.4 Neut % (Auto) 80.4 H Lymph % (Auto) 12.9 L [place] % (Auto) 5.9 Eos % (Auto) 0.6 Baso % (Auto) 0.2 Neut # 9.7 H Lymph # 1.6 [place] # 0.7 Eos # 0.1 Baso # 0.0 Neutrophils % (Manual) Band Neutrophils % Lymphocytes % (Manual) Monocytes % (Manual) Eosinophils % (Manual) Hypersegmented Polys Smudge Cells Platelet Estimate Large Platelets Hypochromasia (manual) Poikilocytosis (manual Anisocytosis (manual) Microcytosis (manual) PT 15.3 H INR 1.4 APTT 26 Sodium Potassium Chloride Carbon Dioxide Anion Gap BUN Creatinine Est GFR ( Amer) Est GFR (Non-Af Amer) POC Glucose (mg/dL) Random Glucose Calcium Phosphorus Magnesium Total Bilirubin AST ALT Alkaline Phosphatase Total Protein Albumin Globulin Albumin/Globulin Ratio Blood Type B POSITIVE Antibody Screen Positive Antibody Identification Non Specific Antibody 06/04/17 07:05 WBC RBC Hgb Hct MCV MCH MCHC RDW Plt Count MPV Neut % (Auto) Lymph % (Auto) [place] % (Auto) Eos % (Auto) Baso % (Auto) Neut # Lymph # [place] # Eos # Baso # Neutrophils % (Manual) Band Neutrophils % Lymphocytes % (Manual) Monocytes % (Manual) Eosinophils % (Manual) Hypersegmented Polys Smudge Cells Platelet Estimate Large Platelets Hypochromasia (manual) Poikilocytosis (manual Anisocytosis (manual) Microcytosis (manual) PT INR APTT Sodium 132 Potassium 3.3 L Chloride 103 Carbon Dioxide 22 Anion Gap 11 BUN 8 Creatinine 0.3 L Est GFR ( Amer) > 60 Est GFR (Non-Af Amer) > 60 POC Glucose (mg/dL) Random Glucose 69 Calcium 7.9 L Phosphorus 3.2 Magnesium 1.5 L Total Bilirubin 1.6 H AST 44 H ALT 28 Alkaline Phosphatase 119 Total Protein 6.0 L Albumin 2.4 L Globulin 3.6 Albumin/Globulin Ratio 0.7 L Blood Type Antibody Screen Antibody Identification
--- NOTE | 2017-06-04 17:42 | CP.PCM.CON ---
History of Present Illness - History of Present Illness History of Present Illness: 51 year old bed bound female with a history of rheumatoid arthritis admitted left breast mass and bleeding pt had severe bleeding externally and came to ed in ed she was tachy and pain weakness noted pt is awake and taking Past medical history: rheumatoid arthritis Past surgical history: Family history: Denies hematologic and oncologic problems Social history: Denies tobacco, alcohol,and illicit drug use. Allergies: Several, see allergy list. Review of systems: All remaining review of systems including HEENT, cardiovascular, respiratory, gastrointestinal, genitourinary, musculoskeletal, dermatologic, neurologic, and psychiatric are negative unless mentioned in the HPI. o/e: pt with left breast fungating mass no bleeding activiley now chest clear abd soft edema negative labs noted very low HG admit to icu transfusion keep the dressing as intact if bleed surgical eval no asa no blood thinners Past Patient History - Infectious Disease Hx of Infectious Diseases: None - Past Medical History & Family History Past Medical History?: Yes - Past Social History Smoking Status: Never Smoked - CARDIAC Hx Cardiac Disorders: No - PULMONARY Hx Respiratory Disorders: No - NEUROLOGICAL Hx Neurological Disorder: No - HEENT Hx HEENT Problems: No - RENAL Hx Chronic Kidney Disease: No - ENDOCRINE/METABOLIC Hx Endocrine Disorders: No - HEMATOLOGICAL/ONCOLOGICAL Hx Anemia: Yes - INTEGUMENTARY Hx Dermatological Problems: Yes (SEE COMMENT) Other/Comment: left upper chest mass - MUSCULOSKELETAL/RHEUMATOLOGICAL Hx Arthritis: Yes Hx Falls: No Other/Comment: both arms contracted signs noted - GASTROINTESTINAL Hx Gastrointestinal Disorders: No - GENITOURINARY/GYNECOLOGICAL Hx Genitourinary Disorders: Yes (SEE COMMENT) Other/Comment: menopausal. breast CA - PSYCHIATRIC Hx Substance Use: No - SURGICAL HISTORY Hx Surgeries: Yes (SEE COMMENT) Hx Breast Biopsy: Yes (BREAST CA) Hx Section: Yes (x2) Other/Comment: d&c. cauterization done left chest - ANESTHESIA Hx Anesthesia: Yes Hx Anesthesia Reactions: No Meds Allergies/Adverse Reactions: Allergies Allergy/AdvReac Type Severity Reaction Status Date / Time ciprofloxacin [From Cipro] Allergy SWELLING Verified 06/03/17 14:52 ibuprofen Allergy Verified 06/03/17 14:52 magnesium Allergy CONGESTION Verified 06/03/17 14:52 Penicillins Allergy SWELLING Verified 06/03/17 14:52 diphenhydramine AdvReac numbness Verified 06/03/17 14:52 [From Moo] on tongue and throath - Medications Medications: Current Medications Famotidine (Pepcid) 40 mg PO DAILY [facility] Last Admin: 06/04/17 11:34 Dose: 40 mg Results - Vital Signs Recent Vital Signs: Last Vital Signs Temp 98.3 F 06/04/17 16:00 Pulse 100 H 06/04/17 16:50 Resp 14 06/04/17 16:50 BP 113/63 06/04/17 16:22 Pulse Ox 100 06/04/17 16:50 - Labs Result Diagrams: 06/04/17 07:05 06/04/17 07:05 Labs: Laboratory Results - last 24 hr 06/03/17 06/03/17 06/03/17 16:13 16:44 18:05 WBC RBC Hgb Hct MCV MCH MCHC RDW Plt Count MPV Neut % (Auto) Lymph % (Auto) [place] % (Auto) Eos % (Auto) Baso % (Auto) Neut # Lymph # [place] # Eos # Baso # Neutrophils % (Manual) 79 H Band Neutrophils % 8 H Lymphocytes % (Manual) 6 L Monocytes % (Manual) 5 Eosinophils % (Manual) 2 Hypersegmented Polys Present Smudge Cells Present Platelet Estimate Normal Large Platelets Present Hypochromasia (manual) Moderate Poikilocytosis (manual Slight Anisocytosis (manual) Slight Microcytosis (manual) Slight PT 15.3 H INR 1.4 APTT 26 Sodium Potassium Chloride Carbon Dioxide Anion Gap BUN Creatinine Est GFR ( Amer) Est GFR (Non-Af Amer) Random Glucose Calcium Phosphorus Magnesium Total Bilirubin AST ALT Alkaline Phosphatase Total Protein Albumin Globulin Albumin/Globulin Ratio Blood Type B POSITIVE Antibody Screen Positive Antibody Identification Non Specific Antibody 06/04/17 06/04/17 07:05 07:05 WBC 12.0 H RBC 2.77 L Hgb 7.7 L D Hct 23.0 L MCV 83.0 D MCH 28.0 MCHC 33.7 RDW 17.4 H Plt Count 246 MPV 7.4 Neut % (Auto) 80.4 H Lymph % (Auto) 12.9 L [place] % (Auto) 5.9 Eos % (Auto) 0.6 Baso % (Auto) 0.2 Neut # 9.7 H Lymph # 1.6 [place] # 0.7 Eos # 0.1 Baso # 0.0 Neutrophils % (Manual) Band Neutrophils % Lymphocytes % (Manual) Monocytes % (Manual) Eosinophils % (Manual) Hypersegmented Polys Smudge Cells Platelet Estimate Large Platelets Hypochromasia (manual) Poikilocytosis (manual Anisocytosis (manual) Microcytosis (manual) PT INR APTT Sodium 132 Potassium 3.3 L Chloride 103 Carbon Dioxide 22 Anion Gap 11 BUN 8 Creatinine 0.3 L Est GFR ( Amer) > 60 Est GFR (Non-Af Amer) > 60 Random Glucose 69 Calcium 7.9 L Phosphorus 3.2 Magnesium 1.5 L Total Bilirubin 1.6 H AST 44 H ALT 28 Alkaline Phosphatase 119 Total Protein 6.0 L Albumin 2.4 L Globulin 3.6 Albumin/Globulin Ratio 0.7 L Blood Type Antibody Screen Antibody Identification
--- NOTE | 2017-06-04 17:43 | CP.CCUPN ---
CCU Subjective - Physician Review Events Since Last Encounter (Free Text): 06/04/17 17:43 50 year old bed bound female with a history of rheumatoid arthritis admitted with breast mass and bleeding Past medical history: rheumatoid arthritis Past surgical history: Family history: Denies hematologic and oncologic problems Social history: Denies tobacco, alcohol,and illicit drug use. Allergies: Several, see allergy list. Review of systems: All remaining review of systems including HEENT, cardiovascular, respiratory, gastrointestinal, genitourinary, musculoskeletal, dermatologic, neurologic, and psychiatric are negative unless mentioned in the HPI. received one unit of transfusion repeat labs transfuse if needed surgical eval continue current treatment will f/u CCU Objective - Vital Signs / Intake & Output Vital Signs (Last 4 hours): Vital Signs Temp Pulse Resp BP Pulse Ox 06/04/17 16:50 100 H 14 100 06/04/17 16:40 102 H 17 100 06/04/17 16:30 96 H 15 100 06/04/17 16:22 98 H 16 113/63 100 06/04/17 16:20 96 H 15 100 06/04/17 16:10 98 H 16 100 06/04/17 16:00 98.3 F 102 H 16 113/63 100 06/04/17 15:50 106 H 18 100 06/04/17 15:40 102 H 12 100 06/04/17 15:30 99 H 16 99 06/04/17 15:22 104 H 15 120/64 100 06/04/17 15:20 100 H 20 100 06/04/17 15:10 102 H 17 100 06/04/17 15:00 96 H 20 120/66 100 06/04/17 14:50 100 H 19 100 06/04/17 14:40 99 H 18 100 06/04/17 14:30 102 H 22 100 06/04/17 14:22 101 H 17 121/70 100 06/04/17 14:20 106 H 19 100 06/04/17 14:10 104 H 16 100 06/04/17 14:00 98.2 F 105 H 20 120/64 100 06/04/17 13:50 95 H 19 100 Intake and Output (Last 8hrs): Intake & Output 06/04/17 06/04/17 06/04/17 06:59 14:59 22:59 Intake Total 475 1080 320 Output Total 0 580 220 Balance 475 500 100 Weight 110 lb Intake: Oral 50 1080 320 Blood Product 325 Red Blood Cells Cpd As1 325 Lr Unit [id number] Other 100 Red Blood Cells Cpd As1 100 Lr Unit [id number] Output: Urine 0 580 220 Urine, Voided 0 580 220 Urine/Stool Mix 0 Other: # Bowel Movements 0 - Medications Active Medications: Active Medications Generic Name Dose Route Start Last Admin Trade Name Freq PRN Reason Stop Dose Admin Famotidine 40 mg 06/04/17 10:15 06/04/17 11:34 Pepcid PO 40 mg DAILY DANNA Administration - Patient Studies Lab Studies: Lab Studies 06/04/17 06/04/17 06/03/17 Range/Units 07:05 07:05 18:05 WBC 12.0 H (4.8-10.8) K/uL RBC 2.77 L (3.80-5.20) Mil/uL Hgb 7.7 L D (11.0-16.0) g/dL Hct 23.0 L (34.0-47.0) % MCV 83.0 D (81.0-99.0) fL MCH 28.0 (27.0-31.0) pg MCHC 33.7 (33.0-37.0) g/dL RDW 17.4 H (11.5-14.5) % Plt Count 246 (130-400) K/uL MPV 7.4 (7.2-11.7) fL Neut % (Auto) 80.4 H (50.0-75.0) % Lymph % (Auto) 12.9 L (20.0-40.0) % [place] % (Auto) 5.9 (0.0-10.0) % Eos % (Auto) 0.6 (0.0-4.0) % Baso % (Auto) 0.2 (0.0-2.0) % Neut # 9.7 H (1.8-7.0) K/uL Lymph # 1.6 (1.0-4.3) K/uL [place] # 0.7 (0.0-0.8) K/uL Eos # 0.1 (0.0-0.7) K/uL Baso # 0.0 (0.0-0.2) K/uL Neutrophils % (Manual) (50-75) % Band Neutrophils % (0-2) % Lymphocytes % (Manual) (20-40) % Monocytes % (Manual) (0-10) % Eosinophils % (Manual) (0-4) % Hypersegmented Polys Smudge Cells Platelet Estimate (NORMAL) Large Platelets Hypochromasia (manual) Poikilocytosis (manual Anisocytosis (manual) Microcytosis (manual) PT 15.3 H (9.7-12.2) SECONDS INR 1.4 APTT 26 (21-34) SECONDS Sodium 132 (132-148) mmol/L Potassium 3.3 L (3.6-5.2) mmol/L Chloride 103 (98-107) mmol/L Carbon Dioxide 22 (22-30) mmol/L Anion Gap 11 (10-20) BUN 8 (7-17) mg/dL Creatinine 0.3 L (0.7-1.2) mg/dL Est GFR ( Amer) > 60 Est GFR (Non-Af Amer) > 60 Random Glucose 69 (65-105) mg/dL Calcium 7.9 L (8.6-10.4) mg/dl Phosphorus 3.2 (2.5-4.5) mg/dL Magnesium 1.5 L (1.6-2.3) mg/dL Total Bilirubin 1.6 H (0.2-1.3) mg/dL AST 44 H (14-36) U/L ALT 28 (9-52) U/L Alkaline Phosphatase 119 (38-126) U/L Total Protein 6.0 L (6.3-8.3) g/dL Albumin 2.4 L (3.5-5.0) g/dL Globulin 3.6 (2.2-3.9) gm/dL Albumin/Globulin Ratio 0.7 L (1.0-2.1) Blood Type Antibody Screen Antibody Identification 06/03/17 06/03/17 Range/Units 16:44 16:13 WBC (4.8-10.8) K/uL RBC (3.80-5.20) Mil/uL Hgb (11.0-16.0) g/dL Hct (34.0-47.0) % MCV (81.0-99.0) fL MCH (27.0-31.0) pg MCHC (33.0-37.0) g/dL RDW (11.5-14.5) % Plt Count (130-400) K/uL MPV (7.2-11.7) fL Neut % (Auto) (50.0-75.0) % Lymph % (Auto) (20.0-40.0) % [place] % (Auto) (0.0-10.0) % Eos % (Auto) (0.0-4.0) % Baso % (Auto) (0.0-2.0) % Neut # (1.8-7.0) K/uL Lymph # (1.0-4.3) K/uL [place] # (0.0-0.8) K/uL Eos # (0.0-0.7) K/uL Baso # (0.0-0.2) K/uL Neutrophils % (Manual) 79 H (50-75) % Band Neutrophils % 8 H (0-2) % Lymphocytes % (Manual) 6 L (20-40) % Monocytes % (Manual) 5 (0-10) % Eosinophils % (Manual) 2 (0-4) % Hypersegmented Polys Present Smudge Cells Present Platelet Estimate Normal (NORMAL) Large Platelets Present Hypochromasia (manual) Moderate Poikilocytosis (manual Slight Anisocytosis (manual) Slight Microcytosis (manual) Slight PT (9.7-12.2) SECONDS INR APTT (21-34) SECONDS Sodium (132-148) mmol/L Potassium (3.6-5.2) mmol/L Chloride (98-107) mmol/L Carbon Dioxide (22-30) mmol/L Anion Gap (10-20) BUN (7-17) mg/dL Creatinine (0.7-1.2) mg/dL Est GFR ( Amer) Est GFR (Non-Af Amer) Random Glucose (65-105) mg/dL Calcium (8.6-10.4) mg/dl Phosphorus (2.5-4.5) mg/dL Magnesium (1.6-2.3) mg/dL Total Bilirubin (0.2-1.3) mg/dL AST (14-36) U/L ALT (9-52) U/L Alkaline Phosphatase (38-126) U/L Total Protein (6.3-8.3) g/dL Albumin (3.5-5.0) g/dL Globulin (2.2-3.9) gm/dL Albumin/Globulin Ratio (1.0-2.1) Blood Type B POSITIVE Antibody Screen Positive Antibody Identification Non Specific Antibody Laboratory Results - last 24 hr 06/03/17 06/03/17 06/03/17 16:13 16:44 18:05 WBC RBC Hgb Hct MCV MCH MCHC RDW Plt Count MPV Neut % (Auto) Lymph % (Auto) [place] % (Auto) Eos % (Auto) Baso % (Auto) Neut # Lymph # [place] # Eos # Baso # Neutrophils % (Manual) 79 H Band Neutrophils % 8 H Lymphocytes % (Manual) 6 L Monocytes % (Manual) 5 Eosinophils % (Manual) 2 Hypersegmented Polys Present Smudge Cells Present Platelet Estimate Normal Large Platelets Present Hypochromasia (manual) Moderate Poikilocytosis (manual Slight Anisocytosis (manual) Slight Microcytosis (manual) Slight PT 15.3 H INR 1.4 APTT 26 Sodium Potassium Chloride Carbon Dioxide Anion Gap BUN Creatinine Est GFR ( Amer) Est GFR (Non-Af Amer) Random Glucose Calcium Phosphorus Magnesium Total Bilirubin AST ALT Alkaline Phosphatase Total Protein Albumin Globulin Albumin/Globulin Ratio Blood Type B POSITIVE Antibody Screen Positive Antibody Identification Non Specific Antibody 06/04/17 06/04/17 07:05 07:05 WBC 12.0 H RBC 2.77 L Hgb 7.7 L D Hct 23.0 L MCV 83.0 D MCH 28.0 MCHC 33.7 RDW 17.4 H Plt Count 246 MPV 7.4 Neut % (Auto) 80.4 H Lymph % (Auto) 12.9 L [place] % (Auto) 5.9 Eos % (Auto) 0.6 Baso % (Auto) 0.2 Neut # 9.7 H Lymph # 1.6 [place] # 0.7 Eos # 0.1 Baso # 0.0 Neutrophils % (Manual) Band Neutrophils % Lymphocytes % (Manual) Monocytes % (Manual) Eosinophils % (Manual) Hypersegmented Polys Smudge Cells Platelet Estimate Large Platelets Hypochromasia (manual) Poikilocytosis (manual Anisocytosis (manual) Microcytosis (manual) PT INR APTT Sodium 132 Potassium 3.3 L Chloride 103 Carbon Dioxide 22 Anion Gap 11 BUN 8 Creatinine 0.3 L Est GFR ( Amer) > 60 Est GFR (Non-Af Amer) > 60 Random Glucose 69 Calcium 7.9 L Phosphorus 3.2 Magnesium 1.5 L Total Bilirubin 1.6 H AST 44 H ALT 28 Alkaline Phosphatase 119 Total Protein 6.0 L Albumin 2.4 L Globulin 3.6 Albumin/Globulin Ratio 0.7 L Blood Type Antibody Screen Antibody Identification Fingerstick Blood Sugar Results: 165 Critical Care Progress Note - Nutrition Nutrition: Nutrition Category Date Time Status Regular Diet [DIET] Diets 06/04/17 Breakfast Active
[2017-06-04 18:37] LABS: BASO % 0.2 % (0.0-2.0); EOS # 0.1 K/uL (0.0-0.7); HEMOGLOBIN 7.4 g/dL (11.0-16.0); LYMPH # 1.2 K/uL (1.0-4.3); LYMPH % 10.9 % (20.0-40.0); MEAN CELL VOLUME 81.3 fL (81.0-99.0); MEAN CORPUSCULAR HEMOGLOBIN 27.5 pg (27.0-31.0); MEAN CORPUSCULAR HGB CONC 33.8 g/dL (33.0-37.0); MEAN PLATELET VOLUME 7.3 fL (7.2-11.7); MONO # 0.6 K/uL (0.0-0.8); MONO % 5.4 % (0.0-10.0); NEUT # 9.3 K/uL (1.8-7.0); NEUT % 82.5 % (50.0-75.0); NRBC % 0.1 % (0.0-2.0); RBC 2.69 Mil/uL (3.80-5.20); RED CELL DISTRIBUTION WIDTH 17.9 % (11.5-14.5); WHITE BLOOD COUNT 11.2 K/uL (4.8-10.8)
[2017-06-05 06:33] LABS: BASO % 0.3 % (0.0-2.0); EOS # 0.2 K/uL (0.0-0.7); EOS % 1.2 % (0.0-4.0); HEMOGLOBIN 7.5 g/dL (11.0-16.0); LYMPH # 1.3 K/uL (1.0-4.3); LYMPH % 9.8 % (20.0-40.0); MEAN CELL VOLUME 81.9 fL (81.0-99.0); MEAN CORPUSCULAR HEMOGLOBIN 27.6 pg (27.0-31.0); MEAN CORPUSCULAR HGB CONC 33.8 g/dL (33.0-37.0); MEAN PLATELET VOLUME 7.6 fL (7.2-11.7); MONO # 0.8 K/uL (0.0-0.8); MONO % 6.1 % (0.0-10.0); NEUT # 11.2 K/uL (1.8-7.0); NEUT % 82.6 % (50.0-75.0); NRBC % 0.1 % (0.0-2.0); PLATELET COUNT 265 K/uL (130-400); RBC 2.71 Mil/uL (3.80-5.20); RED CELL DISTRIBUTION WIDTH 18.4 % (11.5-14.5); WHITE BLOOD COUNT 13.6 K/uL (4.8-10.8)
[2017-06-05 06:50] LABS: ALB/GLOB RATIO 0.7 (1.0-2.1); ALBUMIN 2.5 g/dL (3.5-5.0); ALT/SGPT 31 U/L (9-52); AST/SGOT 39 U/L (14-36); BLOOD UREA NITROGEN 7 mg/dL (7-17); CALCIUM 8.3 mg/dl (8.6-10.4); GFR AFRICAN-AMERICAN > 60; GFR NON-AFRICAN AMERICAN > 60; MAGNESIUM 1.5 mg/dL (1.6-2.3)
[2017-06-05] MEDS ORDERED: Magnesium Oxide 400 mg Tab UD PO ONE (07:47)
[2017-06-05 08:37] LABS: ANISOCYTOSIS SLIGHT; BANDS 12 % (0-2); HYPOCHROMIC SLIGHT; LYMPHOCYTE 12 % (20-40); MONOCYTE 3 % (0-10); MYELOCYTE 1 % (0-0); NEUTROPHIL 72 % (50-75); PLATELET ESTIMATE NORMAL (NORMAL); POIKILOCYTOSIS SLIGHT; TOTAL CELLS COUNTED 100
[2017-06-05 08:38] LABS: BURR CELLS SLIGHT; GIANT PLATELETS PRESENT; LARGE PLATELETS PRESENT; MICROCYTOSIS SLIGHT; TARGET CELLS SLIGHT; TOXIC GRANULATION PRESENT
--- NOTE | 2017-06-05 10:45 | CP.PCM.CON ---
History of Present Illness - History of Present Illness History of Present Illness: General Surgery consult note for Dr. 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 Pt states that bleeding started yesterday. Pt had similar episodes last month and had angioembolization in March 2017. Bleeding stopped at that time. With bleeding this time, hgb was found to be 4.5. Patient states that her dressing is changed every other day by a home nurse. Patient states that she has received blood transfusions in past for bleeding. Denies chest pain, palpitations, SOB, dizziness, vertigo. Denies fever/chills, abdominal pain, nausea/vomiting, diarrhea. PMH: Rheumatoid arthritis, breast carcinoma with fungating mass, anemia, vertigo Meds: As per EMR Allergy: Ciprofloxacin, ibuprofen, magnesium, PCN, diphenhydramine PSH: core needle biopsy left breast mass Hosp: numerous related to breast CA FH: unknown Social: denies tobacco, EtOH, illicit drug use Review of Systems - Review of Systems Review of Systems: See HPI Past Patient History - Infectious Disease Hx of Infectious Diseases: None - Past Medical History & Family History Past Medical History?: Yes - Past Social History Smoking Status: Never Smoked - CARDIAC Hx Cardiac Disorders: No - PULMONARY Hx Respiratory Disorders: No - NEUROLOGICAL Hx Neurological Disorder: No - HEENT Hx HEENT Problems: No - RENAL Hx Chronic Kidney Disease: No - ENDOCRINE/METABOLIC Hx Endocrine Disorders: No - HEMATOLOGICAL/ONCOLOGICAL Hx Anemia: Yes - INTEGUMENTARY Hx Dermatological Problems: Yes (SEE COMMENT) Other/Comment: left upper chest mass - MUSCULOSKELETAL/RHEUMATOLOGICAL Hx Arthritis: Yes Hx Falls: No Other/Comment: both arms contracted signs noted - GASTROINTESTINAL Hx Gastrointestinal Disorders: No - GENITOURINARY/GYNECOLOGICAL Hx Genitourinary Disorders: Yes (SEE COMMENT) Other/Comment: menopausal. breast CA - PSYCHIATRIC Hx Substance Use: No - SURGICAL HISTORY Hx Surgeries: Yes (SEE COMMENT) Hx Breast Biopsy: Yes (BREAST CA) Hx Section: Yes (x2) Other/Comment: d&c. cauterization done left chest - ANESTHESIA Hx Anesthesia: Yes Hx Anesthesia Reactions: No Meds Allergies/Adverse Reactions: Allergies Allergy/AdvReac Type Severity Reaction Status Date / Time ciprofloxacin [From Cipro] Allergy SWELLING Verified 06/03/17 14:52 ibuprofen Allergy Verified 06/03/17 14:52 magnesium Allergy CONGESTION Verified 06/03/17 14:52 Penicillins Allergy SWELLING Verified 06/03/17 14:52 diphenhydramine AdvReac numbness Verified 06/03/17 14:52 [From Benadryl] on tongue and throath - Medications Medications: Current Medications Famotidine (Pepcid) 40 mg PO DAILY [facility] Last Admin: 06/05/17 09:30 Dose: Not Given Potassium Chloride (K-Dur 20 Meq Er Tab) 20 meq PO DAILY [facility] Physical Exam - Constitutional Appears: No Acute Distress - Head Exam Head Exam: ATRAUMATIC, NORMAL INSPECTION, NORMOCEPHALIC - Eye Exam Eye Exam: EOMI, Normal appearance, PERRL Pupil Exam: NORMAL ACCOMODATION, PERRL - ENT Exam ENT Exam: Mucous Membranes Moist, Normal Exam - Neck Exam Neck exam: Positive for: Normal Inspection - Respiratory Exam Respiratory Exam: Clear to Auscultation Bilateral, NORMAL BREATHING PATTERN - Cardiovascular Exam Cardiovascular Exam: Bradycardia, REGULAR RHYTHM - GI/Abdominal Exam GI & Abdominal Exam: Normal Bowel Sounds, Soft. absent: Tenderness - Extremities Exam Extremities exam: Positive for: normal inspection - Back Exam Back exam: NORMAL INSPECTION - Neurological Exam Neurological exam: Alert, CN II-XII Intact, Normal Gait, Oriented x3, Reflexes Normal - Psychiatric Exam Psychiatric exam: Normal Affect, Normal Mood - Skin Skin Exam: Erythema, Warm - Expanded Skin Exam Expanded Type of lesion: Abrasion, Rash Distribution of rash: Chest Description of Rash: Erythematous, Tenderness (L breast. Dressing C/D/I. No active bleeding. ) Results - Vital Signs Recent Vital Signs: Last Vital Signs Temp 98.7 F 06/05/17 04:00 Pulse 101 H 06/05/17 07:00 Resp 17 06/05/17 07:00 BP 117/66 06/04/17 19:22 Pulse Ox 99 06/05/17 07:00 - Labs Result Diagrams: 06/05/17 06:25 06/05/17 06:25 Labs: Laboratory Results - last 24 hr 06/04/17 06/05/17 06/05/17 18:26 06:25 06:25 WBC 11.2 H 13.6 H RBC 2.69 L 2.71 L Hgb 7.4 L 7.5 L Hct 21.9 L 22.2 L MCV 81.3 81.9 MCH 27.5 27.6 MCHC 33.8 33.8 RDW 17.9 H 18.4 H Plt Count 261 265 MPV 7.3 7.6 Neut % (Auto) 82.5 H 82.6 H Lymph % (Auto) 10.9 L 9.8 L [place] % (Auto) 5.4 6.1 Eos % (Auto) 1.0 1.2 Baso % (Auto) 0.2 0.3 Neut # 9.3 H 11.2 H Lymph # 1.2 1.3 [place] # 0.6 0.8 Eos # 0.1 0.2 Baso # 0.0 0.0 Neutrophils % (Manual) 72 Band Neutrophils % 12 H* Lymphocytes % (Manual) 12 L Monocytes % (Manual) 3 Myelocytes % 1 H Toxic Granulation Present Platelet Estimate Normal Large Platelets Present Giant Platelets Present Hypochromasia (manual) Slight Poikilocytosis (manual Slight Anisocytosis (manual) Slight Microcytosis (manual) Slight Macrocytosis (manual) Slight Target Cells Slight [place] Cells Slight Sodium 129 L Potassium 3.2 L Chloride 99 Carbon Dioxide 26 Anion Gap 7 L BUN 7 Creatinine 0.3 L Est GFR ( Amer) > 60 Est GFR (Non-Af Amer) > 60 Random Glucose 98 Calcium 8.3 L Phosphorus 2.7 Magnesium 1.5 L Total Bilirubin 1.4 H AST 39 H ALT 31 Alkaline Phosphatase 136 H Total Protein 6.1 L Albumin 2.5 L Globulin 3.6 Albumin/Globulin Ratio 0.7 L Assessment & Plan - Assessment and Plan (Free Text) Assessment: L bleeding breast CA -Wound care -Monitor labs -MOnitor bleeding, monitor VS DW Dr. Trinidad
--- NOTE | 2017-06-05 10:49 | CP.CCUPN ---
CCU Subjective - Physician Review Events Since Last Encounter (Free Text): 06/05/17 10:48 Patient seen and examined at bedside. stable for transfer to regular bed CCU Objective - Vital Signs / Intake & Output Vital Signs (Last 4 hours): Vital Signs Pulse Resp Pulse Ox 06/05/17 07:00 101 H 17 99 06/05/17 06:50 103 H 17 100 Intake and Output (Last 8hrs): Intake & Output 06/04/17 06/05/17 06/05/17 22:59 06:59 14:59 Intake Total 640 75 200 Output Total 450 300 25 Balance 190 -225 175 Weight 110 lb Intake: Oral 640 75 200 Output: Urine 450 300 25 Urine, Voided 450 300 25 Other: # Bowel Movements 0 0 0 - Medications Active Medications: Active Medications Generic Name Dose Route Start Last Admin Trade Name Freq PRN Reason Stop Dose Admin Famotidine 40 mg 06/04/17 10:15 06/05/17 09:30 Pepcid PO Not Given DAILY DANNA Potassium Chloride 20 meq 06/05/17 10:00 K-Dur 20 Meq Er Tab PO DAILY DANNA - Patient Studies Lab Studies: Microbiology Studies 06/03/17 18:34 MRSA Culture (Admit) - Final Naris MRSA NOT DETECTED Lab Studies 06/05/17 06/05/17 06/04/17 Range/Units 06:25 06:25 18:26 WBC 13.6 H 11.2 H (4.8-10.8) K/uL RBC 2.71 L 2.69 L (3.80-5.20) Mil/uL Hgb 7.5 L 7.4 L (11.0-16.0) g/dL Hct 22.2 L 21.9 L (34.0-47.0) % MCV 81.9 81.3 (81.0-99.0) fL MCH 27.6 27.5 (27.0-31.0) pg MCHC 33.8 33.8 (33.0-37.0) g/dL RDW 18.4 H 17.9 H (11.5-14.5) % Plt Count 265 261 (130-400) K/uL MPV 7.6 7.3 (7.2-11.7) fL Neut % (Auto) 82.6 H 82.5 H (50.0-75.0) % Lymph % (Auto) 9.8 L 10.9 L (20.0-40.0) % [place] % (Auto) 6.1 5.4 (0.0-10.0) % Eos % (Auto) 1.2 1.0 (0.0-4.0) % Baso % (Auto) 0.3 0.2 (0.0-2.0) % Neut # 11.2 H 9.3 H (1.8-7.0) K/uL Lymph # 1.3 1.2 (1.0-4.3) K/uL [place] # 0.8 0.6 (0.0-0.8) K/uL Eos # 0.2 0.1 (0.0-0.7) K/uL Baso # 0.0 0.0 (0.0-0.2) K/uL Neutrophils % (Manual) 72 (50-75) % Band Neutrophils % 12 H* (0-2) % Lymphocytes % (Manual) 12 L (20-40) % Monocytes % (Manual) 3 (0-10) % Myelocytes % 1 H (0-0) % Toxic Granulation Present Platelet Estimate Normal (NORMAL) Large Platelets Present Giant Platelets Present Hypochromasia (manual) Slight Poikilocytosis (manual Slight Anisocytosis (manual) Slight Microcytosis (manual) Slight Macrocytosis (manual) Slight Target Cells Slight [place] Cells Slight Sodium 129 L (132-148) mmol/L Potassium 3.2 L (3.6-5.2) mmol/L Chloride 99 (98-107) mmol/L Carbon Dioxide 26 (22-30) mmol/L Anion Gap 7 L (10-20) BUN 7 (7-17) mg/dL Creatinine 0.3 L (0.7-1.2) mg/dL Est GFR ( Amer) > 60 Est GFR (Non-Af Amer) > 60 Random Glucose 98 (65-105) mg/dL Calcium 8.3 L (8.6-10.4) mg/dl Phosphorus 2.7 (2.5-4.5) mg/dL Magnesium 1.5 L (1.6-2.3) mg/dL Total Bilirubin 1.4 H (0.2-1.3) mg/dL AST 39 H (14-36) U/L ALT 31 (9-52) U/L Alkaline Phosphatase 136 H (38-126) U/L Total Protein 6.1 L (6.3-8.3) g/dL Albumin 2.5 L (3.5-5.0) g/dL Globulin 3.6 (2.2-3.9) gm/dL Albumin/Globulin Ratio 0.7 L (1.0-2.1) Laboratory Results - last 24 hr 06/04/17 06/05/17 06/05/17 18:26 06:25 06:25 WBC 11.2 H 13.6 H RBC 2.69 L 2.71 L Hgb 7.4 L 7.5 L Hct 21.9 L 22.2 L MCV 81.3 81.9 MCH 27.5 27.6 MCHC 33.8 33.8 RDW 17.9 H 18.4 H Plt Count 261 265 MPV 7.3 7.6 Neut % (Auto) 82.5 H 82.6 H Lymph % (Auto) 10.9 L 9.8 L [place] % (Auto) 5.4 6.1 Eos % (Auto) 1.0 1.2 Baso % (Auto) 0.2 0.3 Neut # 9.3 H 11.2 H Lymph # 1.2 1.3 [place] # 0.6 0.8 Eos # 0.1 0.2 Baso # 0.0 0.0 Neutrophils % (Manual) 72 Band Neutrophils % 12 H* Lymphocytes % (Manual) 12 L Monocytes % (Manual) 3 Myelocytes % 1 H Toxic Granulation Present Platelet Estimate Normal Large Platelets Present Giant Platelets Present Hypochromasia (manual) Slight Poikilocytosis (manual Slight Anisocytosis (manual) Slight Microcytosis (manual) Slight Macrocytosis (manual) Slight Target Cells Slight [place] Cells Slight Sodium 129 L Potassium 3.2 L Chloride 99 Carbon Dioxide 26 Anion Gap 7 L BUN 7 Creatinine 0.3 L Est GFR ( Amer) > 60 Est GFR (Non-Af Amer) > 60 Random Glucose 98 Calcium 8.3 L Phosphorus 2.7 Magnesium 1.5 L Total Bilirubin 1.4 H AST 39 H ALT 31 Alkaline Phosphatase 136 H Total Protein 6.1 L Albumin 2.5 L Globulin 3.6 Albumin/Globulin Ratio 0.7 L Fingerstick Blood Sugar Results: 165 Critical Care Progress Note - Nutrition Nutrition: Nutrition Category Date Time Status Regular Diet [DIET] Diets 06/04/17 Breakfast Active
--- NOTE | 2017-06-05 13:46 | CP.PCM.PN ---
Subjective - Date & Time of Evaluation Date of Evaluation: 06/05/17 Time of Evaluation: 13:45 Objective - Vital Signs/Intake and Output Vital Signs (last 24 hours): Temp Pulse Resp BP Pulse Ox 98.2 F 102 H 20 127/73 100 06/05/17 12:15 06/05/17 12:31 06/05/17 12:31 06/05/17 12:31 06/05/17 12:31 Intake and Output: 06/05/17 06/05/17 06:59 18:59 Intake Total 275 200 Output Total 430 25 Balance -155 175 - Medications Medications: Current Medications Famotidine (Pepcid) 40 mg PO DAILY REPLACED BY [facility] Last Admin: 06/05/17 09:30 Dose: Not Given Potassium Chloride (K-Dur 20 Meq Er Tab) 20 meq PO DAILY REPLACED BY [facility] - Labs Labs: 06/05/17 06:25 06/05/17 06:25 PT 15.3 SECONDS (9.7-12.2) H 06/03/17 18:05 INR 1.4 06/03/17 18:05 APTT 26 SECONDS (21-34) 06/03/17 18:05
[2017-06-05] MEDS: Potassium Chloride 20 mEq ER Tab PO SCH (14:00)
[2017-06-06 08:42] LABS: BASO % 0.2 % (0.0-2.0); EOS # 0.3 K/uL (0.0-0.7); EOS % 2.1 % (0.0-4.0); HEMOGLOBIN 9.3 g/dL (11.0-16.0); LYMPH # 1.1 K/uL (1.0-4.3); LYMPH % 8.5 % (20.0-40.0); MEAN CELL VOLUME 82.3 fL (81.0-99.0); MEAN CORPUSCULAR HEMOGLOBIN 28.4 pg (27.0-31.0); MEAN CORPUSCULAR HGB CONC 34.6 g/dL (33.0-37.0); MEAN PLATELET VOLUME 7.6 fL (7.2-11.7); MONO # 0.6 K/uL (0.0-0.8); MONO % 4.4 % (0.0-10.0); NEUT # 10.9 K/uL (1.8-7.0); NEUT % 84.8 % (50.0-75.0); NRBC % 0.1 % (0.0-2.0); PLATELET COUNT 222 K/uL (130-400); RBC 3.26 Mil/uL (3.80-5.20); RED CELL DISTRIBUTION WIDTH 17.8 % (11.5-14.5); WHITE BLOOD COUNT 12.9 K/uL (4.8-10.8)
[2017-06-06 08:54] LABS: ALB/GLOB RATIO 0.7 (1.0-2.1); ALBUMIN 2.6 g/dL (3.5-5.0); ALT/SGPT 22 U/L (9-52); AST/SGOT 38 U/L (14-36); BLOOD UREA NITROGEN 10 mg/dL (7-17); CALCIUM 8.1 mg/dl (8.6-10.4); GFR AFRICAN-AMERICAN > 60; GFR NON-AFRICAN AMERICAN > 60
--- NOTE | 2017-06-06 08:59 | CP.PCM.PN ---
Subjective - Date & Time of Evaluation Date of Evaluation: 06/06/17 Time of Evaluation: 08:56 - Subjective Subjective: Surgery Pt s&E. NAEON. Denies F/C/N/V/D/CP/SOB. Stopped bleeding. Objective - Vital Signs/Intake and Output Vital Signs (last 24 hours): Temp Pulse Resp BP Pulse Ox 98.9 F 95 H 18 125/69 100 06/06/17 04:00 06/06/17 06:38 06/06/17 06:38 06/06/17 06:38 06/06/17 06:38 Intake and Output: 06/06/17 06/06/17 06:59 18:59 Intake Total 350 Output Total 250 Balance 100 - Medications Medications: Current Medications Famotidine (Pepcid) 40 mg PO DAILY [facility] Last Admin: 06/05/17 09:30 Dose: Not Given Potassium Chloride (K-Dur 20 Meq Er Tab) 20 meq PO DAILY [facility] Last Admin: 06/05/17 14:00 Dose: Not Given - Labs Labs: 06/06/17 08:36 06/06/17 08:36 PT 15.3 SECONDS (9.7-12.2) H 06/03/17 18:05 INR 1.4 06/03/17 18:05 APTT 26 SECONDS (21-34) 06/03/17 18:05 - Constitutional Appears: No Acute Distress - Head Exam Head Exam: ATRAUMATIC, NORMAL INSPECTION, NORMOCEPHALIC - Eye Exam Eye Exam: EOMI, Normal appearance, PERRL Pupil Exam: NORMAL ACCOMODATION, PERRL - ENT Exam ENT Exam: Mucous Membranes Moist, Normal Exam - Neck Exam Neck Exam: Full ROM, Normal Inspection. absent: Lymphadenopathy - Respiratory Exam Respiratory Exam: Clear to Ausculation Bilateral, NORMAL BREATHING PATTERN - Cardiovascular Exam Cardiovascular Exam: REGULAR RHYTHM, +S1, +S2. absent: Murmur - GI/Abdominal Exam GI & Abdominal Exam: Soft, Normal Bowel Sounds. absent: Distended, Tenderness - Extremities Exam Extremities Exam: Full ROM, Normal Capillary Refill, Normal Inspection. absent : Joint Swelling, Pedal Edema - Back Exam Back Exam: NORMAL INSPECTION - Neurological Exam Neurological Exam: Alert, Awake, CN II-XII Intact, Normal Gait, Oriented x3 - Psychiatric Exam Psychiatric exam: Normal Affect, Normal Mood - Skin Skin Exam: Erythema, Warm Additional comments: L breast dressing C/D/I. Assessment and Plan - Assessment and Plan (Free Text) Assessment: L bleeding breast CA: Pt refusing breast exam. Resolving. -Wound care -Monitor labs -Monitor bleeding, monitor VS -Medical management SKINNY Trinidad
[2017-06-06] MEDS: Potassium Chloride 20 mEq ER Tab PO SCH (09:26)
[2017-06-06 09:44] LABS: ANISOCYTOSIS SLIGHT; BANDS 1 % (0-2); LYMPHOCYTE 9 % (20-40); MONOCYTE 6 % (0-10); NEUTROPHIL 84 % (50-75); PLATELET ESTIMATE NORMAL (NORMAL); TOTAL CELLS COUNTED 100
[2017-06-06 09:45] LABS: POIKILOCYTOSIS SLIGHT
--- NOTE | 2017-06-06 13:36 | CP.PCM.PN ---
Subjective - Date & Time of Evaluation Date of Evaluation: 06/06/17 Time of Evaluation: 13:36 Objective - Vital Signs/Intake and Output Vital Signs (last 24 hours): Temp Pulse Resp BP Pulse Ox 98.9 F 95 H 18 124/73 100 06/06/17 04:00 06/06/17 06:38 06/06/17 06:38 06/06/17 10:38 06/06/17 06:38 Intake and Output: 06/06/17 06/06/17 06:59 18:59 Intake Total 350 Output Total 250 Balance 100 - Medications Medications: Current Medications Famotidine (Pepcid) 40 mg PO DAILY [facility] Last Admin: 06/06/17 09:26 Dose: Not Given Potassium Chloride (K-Dur 20 Meq Er Tab) 20 meq PO DAILY [facility] Last Admin: 06/06/17 09:26 Dose: Not Given - Labs Labs: 06/06/17 08:36 06/06/17 08:36 PT 15.3 SECONDS (9.7-12.2) H 06/03/17 18:05 INR 1.4 06/03/17 18:05 APTT 26 SECONDS (21-34) 06/03/17 18:05
[2017-06-06] MEDS ORDERED: Silver Nitrate Topical - Stick TOP ONE ×2 (14:45→19:15)
[2017-06-06 21:57] VITALS: O2SAT 100
[2017-06-07 06:45] LABS: HEMOGLOBIN 8.7 g/dL (11.0-16.0); MEAN CORPUSCULAR HEMOGLOBIN 28.2 pg (27.0-31.0); MEAN CORPUSCULAR HGB CONC 34.5 g/dL (33.0-37.0); MEAN PLATELET VOLUME 7.8 fL (7.2-11.7); RBC 3.1 Mil/uL (3.80-5.20); RED CELL DISTRIBUTION WIDTH 18.4 % (11.5-14.5)
[2017-06-07 07:05] LABS: BLOOD UREA NITROGEN 10 mg/dL (7-17); CALCIUM 8.3 mg/dl (8.6-10.4); GFR AFRICAN-AMERICAN > 60; GFR NON-AFRICAN AMERICAN > 60
[2017-06-07] MEDS: Potassium Chloride 20 mEq ER Tab PO SCH (09:45)
--- NOTE | 2017-06-07 12:17 | CP.PCM.PN ---
Subjective - Date & Time of Evaluation Date of Evaluation: 06/07/17 Time of Evaluation: 12:17 Objective - Vital Signs/Intake and Output Vital Signs (last 24 hours): Temp Pulse Resp BP Pulse Ox 98.6 F 102 H 20 113/72 100 06/07/17 08:00 06/07/17 08:00 06/07/17 08:00 06/07/17 08:00 06/07/17 00:00 Intake and Output: 06/07/17 06/07/17 06:59 18:59 Intake Total 370 360 Output Total 350 Balance 20 360 - Medications Medications: Current Medications Famotidine (Pepcid) 40 mg PO DAILY [facility] Last Admin: 06/07/17 09:45 Dose: Not Given Potassium Chloride (K-Dur 20 Meq Er Tab) 20 meq PO DAILY [facility] Last Admin: 06/07/17 09:45 Dose: Not Given - Labs Labs: 06/07/17 06:27 06/07/17 06:30 PT 15.3 SECONDS (9.7-12.2) H 06/03/17 18:05 INR 1.4 06/03/17 18:05 APTT 26 SECONDS (21-34) 06/03/17 18:05
--- NOTE | 2017-06-07 12:39 | CP.PCM.PN ---
Subjective - Date & Time of Evaluation Date of Evaluation: 06/07/17 Time of Evaluation: 12:38 - Subjective Subjective: PT CLEARED FOR D/C HOME TODAY BY DR. RANDALL AND DR. HINES. PT GETS HOME AND WOUND CARE SERVICES THROUGH [email or web address]. RX GIVEN TO CONTINUE WOUND CARE WITH APPLICATION OF MEDIHONEY TO SURROUNDING SMALL TUMOR SKIN (TRIAL DONE TODAY WITH UBALDO NAVARRO RN AND PT IN AGREEMENT TO CONTINUE USING IT TO JHONY THAT DO NOT TYPICALLY BLEED). RX ALSO GIVEN FOR WEEKLY CBC TO MONITOR HGB X4 WEEKS. PT TO F/U WITH DR GRAMAJO IN THE OFFICE NEXT WEEK; HER AND SON RECOMMENDED TO DISCUSS WITH HIM POSS HOME VISITING SOLE EDGE INKER MACHINE. SURGICEL AND MEDIHONEY PROVIDED FOR HOME USE. RX SENT TO PT'S PHARMACY FOR MEDS NOTED BELOW. ALL CONCERNS AND QUESTIONS ADDRESSED. SW TO ARRANGE TRANSPORTATION VIA [facility] TODAY. NO FURTHER ORDERS. -FOLLOW UP WITH DR. Dani GRAMAJO IN THE OFFICE WITHIN 1 WEEK--CALL THE OFFICE FOR AN APPOINTMENT TIME. -FOLLOW UP WITH DR. HINES IN THE OFFICE ON -IF YOU ARE UNABLE TO SEE DR. GRAMAJO, FEEL FREE TO FOLLOW UP WITH DR. RANDALL UNTIL DR. Gisella GRAMAJO RETURNS FROM VACATION. -CONTINUE HOME MEDICATIONS USUAL. -NEW PRESCRIPTIONS INCLUDE: MULTIVITAMIN 1 TABLET (CRUSHED AND MIXED WITH PUDDING OR APPLE SAUCE) ONCE A DAY. MICANOZOLE CREAM REFILLED; TO BE USED TO FUNGAL INFECTION TO SKIN--USE DIRECTED. HYDROCORTISONE 1% OINTMENT TO BE USED ONLY IF NEEDED FOR AREAS OF ITCHINESS. OVER THE COUNTER--ALOE VERA-- NATURAL AND SOOTHING FOR SKIN--CAN BE USED NEEDED FOR ITCHINESS OR DRYNESS -WOUND CARE AND DRESSING CHANGES HAVE BEEN ARRANGED WITH YOUR HOME CARE COMPANY. THEY WILL ALSO CHECK YOUR BLOOD COUNT (HEMOGLOBIN) ONCE A WEEK FOR 4 WEEKS AND SEND THE RESULTS TO DR. GRAMAJO'S OFFICE. THIS IS TO MONITOR YOUR ANEMIA. -IF YOU HAVE AREAS OF MINIMAL BLEEDING, YOU CAN USE THE "SURGICEL" DRESSING TO STOP THE BLEEDING AND THEN REDRESS WITH A DRY GAUZE USUAL. -THE WOUND CARE NURSE AT HOME CAN CONTINUE TO USE THE MEDIHONEY TO AREAS AROUND THE BLEEDING. IF YOU NOTICE AN IMPROVEMENT, YOU CAN CONTINUE TO USE IT. -FOR ANY FURTHER CONCERNS OR QUESTIONS, FEEL FREE TO CONTACT YOUR DOCTOR'S OFFICE. Objective - Vital Signs/Intake and Output Vital Signs (last 24 hours): Temp Pulse Resp BP Pulse Ox 98.6 F 102 H 20 113/72 100 06/07/17 08:00 06/07/17 08:00 06/07/17 08:00 06/07/17 08:00 06/07/17 00:00 Intake and Output: 06/07/17 06/07/17 06:59 18:59 Intake Total 370 360 Output Total 350 Balance 20 360 - Medications Medications: Current Medications Famotidine (Pepcid) 40 mg PO DAILY [facility] Last Admin: 06/07/17 09:45 Dose: Not Given Potassium Chloride (K-Dur 20 Meq Er Tab) 20 meq PO DAILY [facility] Last Admin: 06/07/17 09:45 Dose: Not Given - Labs Labs: 06/07/17 06:27 06/07/17 06:30 PT 15.3 SECONDS (9.7-12.2) H 06/03/17 18:05 INR 1.4 06/03/17 18:05 APTT 26 SECONDS (21-34) 06/03/17 18:05
--- NOTE | 2017-06-07 14:31 | CP.PCM.PN ---
Subjective - Date & Time of Evaluation Date of Evaluation: 06/07/17 Time of Evaluation: 11:00 - Subjective Subjective: General Surgery Note for Dr. Trinidad Patient seen and examined at bedside. No acute event overnight. Dressing changed yesterday. Patient has no complaints. Objective - Vital Signs/Intake and Output Vital Signs (last 24 hours): Temp Pulse Resp BP Pulse Ox 98.5 F 100 H 18 109/66 100 06/07/17 12:00 06/07/17 12:00 06/07/17 12:00 06/07/17 12:00 06/07/17 00:00 Intake and Output: 06/07/17 06/07/17 06:59 18:59 Intake Total 370 360 Output Total 350 Balance 20 360 - Medications Medications: Current Medications Famotidine (Pepcid) 40 mg PO DAILY [facility] Last Admin: 06/07/17 09:45 Dose: Not Given Potassium Chloride (K-Dur 20 Meq Er Tab) 20 meq PO DAILY [facility] Last Admin: 06/07/17 09:45 Dose: Not Given - Labs Labs: 06/07/17 06:27 06/07/17 06:30 PT 15.3 SECONDS (9.7-12.2) H 06/03/17 18:05 INR 1.4 06/03/17 18:05 APTT 26 SECONDS (21-34) 06/03/17 18:05 - Constitutional Appears: No Acute Distress - Head Exam Head Exam: ATRAUMATIC, NORMOCEPHALIC - ENT Exam ENT Exam: Mucous Membranes Moist - Respiratory Exam Respiratory Exam: NORMAL BREATHING PATTERN - Cardiovascular Exam Cardiovascular Exam: REGULAR RHYTHM - GI/Abdominal Exam GI & Abdominal Exam: Soft, Normal Bowel Sounds. absent: Tenderness - Extremities Exam Extremities Exam: Normal Capillary Refill - Neurological Exam Neurological Exam: Alert, Awake, Oriented x3 - Psychiatric Exam Psychiatric exam: Normal Affect, Normal Mood - Skin Skin Exam: Dry, Warm Additional comments: left breast dressing clean dry and intact Assessment and Plan - Assessment and Plan (Free Text) Plan: 51 F with Left breast CA, bleeding, and wound -Clear for dischrage from surgical stnadpoint -Silver nitrate OTC for bleeding -Surgical for dressing changes given to patient -No surgical intervention needed at this time -Discussed with Dr. Amos Rico PGY1
[2017-06-08 01:36] LABS: HEMOGLOBIN 8.4 g/dL (11.0-16.0); MEAN CELL VOLUME 81.9 fL (81.0-99.0); MEAN CORPUSCULAR HEMOGLOBIN 28.4 pg (27.0-31.0); MEAN CORPUSCULAR HGB CONC 34.6 g/dL (33.0-37.0); RBC 2.97 Mil/uL (3.80-5.20); RED CELL DISTRIBUTION WIDTH 18.8 % (11.5-14.5); WHITE BLOOD COUNT 16.3 K/uL (4.8-10.8)
--- NOTE | 2017-06-08 09:27 | CP.PCM.PN ---
Subjective - Date & Time of Evaluation Date of Evaluation: 06/08/17 Time of Evaluation: 09:24 - Subjective Subjective: Surgery Pt s&e. Dressing change yesterday. MIld bleeding episode. Dressing C/D/I. Objective - Vital Signs/Intake and Output Vital Signs (last 24 hours): Temp Pulse Resp BP Pulse Ox 98.8 F 127 H 18 108/68 100 06/08/17 04:00 06/08/17 04:00 06/08/17 04:00 06/08/17 04:00 06/07/17 00:00 Intake and Output: 06/08/17 06/08/17 06:59 18:59 Intake Total 150 Balance 150 - Medications Medications: Current Medications Famotidine (Pepcid) 40 mg PO DAILY [facility] Last Admin: 06/07/17 09:45 Dose: Not Given Potassium Chloride (K-Dur 20 Meq Er Tab) 20 meq PO DAILY [facility] Last Admin: 06/07/17 09:45 Dose: Not Given - Labs Labs: 06/08/17 01:34 06/07/17 06:30 PT 15.3 SECONDS (9.7-12.2) H 06/03/17 18:05 INR 1.4 06/03/17 18:05 APTT 26 SECONDS (21-34) 06/03/17 18:05 - Constitutional Appears: No Acute Distress - Head Exam Head Exam: ATRAUMATIC, NORMAL INSPECTION, NORMOCEPHALIC - Eye Exam Eye Exam: EOMI, Normal appearance, PERRL Pupil Exam: NORMAL ACCOMODATION, PERRL - ENT Exam ENT Exam: Mucous Membranes Moist, Normal Exam - Neck Exam Neck Exam: Full ROM, Normal Inspection. absent: Lymphadenopathy - Respiratory Exam Respiratory Exam: Clear to Ausculation Bilateral, NORMAL BREATHING PATTERN - Cardiovascular Exam Cardiovascular Exam: REGULAR RHYTHM, +S1, +S2. absent: Murmur - GI/Abdominal Exam GI & Abdominal Exam: Soft, Normal Bowel Sounds. absent: Tenderness - Extremities Exam Extremities Exam: Full ROM, Normal Capillary Refill, Normal Inspection. absent : Joint Swelling, Pedal Edema - Back Exam Back Exam: NORMAL INSPECTION - Neurological Exam Neurological Exam: Alert, Awake, CN II-XII Intact, Oriented x3 - Psychiatric Exam Psychiatric exam: Normal Affect, Normal Mood - Skin Skin Exam: Erythema, Warm Additional comments: Breast L: multiple lesions. Dressing C/D/I Assessment and Plan - Assessment and Plan (Free Text) Assessment: 51 F with Left breast CA, bleeding, and wound Wound cx: G + C, G -R -No antibiotic needed for surface culture of tumor -Clear for dischrage from surgical stnadpoint -Silver nitrate OTC for bleeding -Surgical for dressing changes given to patient -No surgical intervention needed at this time -Discussed with Dr. Trinidad
[2017-06-08] MEDS ORDERED: Silver Nitrate Topical - Stick TOP ONE ×2 (11:33)
--- NOTE | 2017-06-08 14:05 | CP.PCM.PN ---
Subjective - Date & Time of Evaluation Date of Evaluation: 06/08/17 Time of Evaluation: 14:05 - Subjective Subjective: PT SEEN THIS MORNING BY DR. HINES AND SURGICAL TEAM DURING ROUNDS. WOUND CARE AND DRESSING CHANGE PRIOR TO D/C TO BE DONE BY CLINICAL SECRETARY PER PT AND SON' S REQUEST. THEY ARE ALSO STATING THAT THEY WILL NOT LEAVE THE HOSPITAL UNTIL THEY HAVE THE TWO BOXES OF SURGICEL ON HAND PRIOR TO D/C; STATING THEY WERE PROMISED BY SURGICAL TEAM THAT THEY WERE GOING TO ORDER 2 BOXES FOR THEM TO TAKE HOME WITH THEM. PT GIVEN 1 BOX, HOWEVER, WE NORMALLY DO NOT SUPPLY PT'S WITH THIS PRIOR TO A D/C. RX FOR THE SURGICEL SENT TO PT'S PHARMACY OR THEY CAN CONTRACT SHELTERED WORKSHOP SUPERVISOR FROM MEDICAL SUPPLY STORE OR HAVE IT ORDERED THROUGH [employer]. DISCUSSED ALL HOME WOUND CARE AND WEEKLY CBC WITH PT AND SON AND THEY VERBALIZE UNDERSTANDING OF ALL D/C INFORMATION. CM AWARE OF PLAN. DISCUSSED WITH PRIMARY RN PLAN FOR D/C TODAY. SW TO ARRANGE TRANSPORTATION HOME THIS AFTERNOON. NO FURTHER ORDERS. -FOLLOW UP WITH DR. Dani GRAMAJO IN THE OFFICE WITHIN 1 WEEK--CALL THE OFFICE FOR AN APPOINTMENT TIME. -FOLLOW UP WITH DR. HINES IN THE OFFICE ON -IF YOU ARE UNABLE TO SEE DR. GRAMAJO, FEEL FREE TO FOLLOW UP WITH DR. RANDALL UNTIL DR. Gisella GRAMAJO RETURNS FROM VACATION. -CONTINUE HOME MEDICATIONS USUAL. -NEW PRESCRIPTIONS INCLUDE: MULTIVITAMIN 1 TABLET (CRUSHED AND MIXED WITH PUDDING OR APPLE SAUCE) ONCE A DAY. MICANOZOLE CREAM REFILLED; TO BE USED TO FUNGAL INFECTION TO SKIN--USE DIRECTED. HYDROCORTISONE 1% OINTMENT TO BE USED ONLY IF NEEDED FOR AREAS OF ITCHINESS. OVER THE COUNTER--ALOE VERA-- NATURAL AND SOOTHING FOR SKIN--CAN BE USED NEEDED FOR ITCHINESS OR DRYNESS A PRESCRIPTION FOR SURGICEL HAS BEEN SENT TO YOUR PHARMACY WELL. -WOUND CARE AND DRESSING CHANGES HAVE BEEN ARRANGED WITH YOUR HOME CARE COMPANY. THEY WILL ALSO CHECK YOUR BLOOD COUNT (HEMOGLOBIN) ONCE A WEEK FOR 4 WEEKS AND SEND THE RESULTS TO DR. GRAMAJO'S OFFICE. THIS IS TO MONITOR YOUR ANEMIA. -IF YOU HAVE AREAS OF MINIMAL BLEEDING, YOU CAN USE THE "SURGICEL" DRESSING TO STOP THE BLEEDING AND THEN REDRESS WITH A DRY GAUZE USUAL. -FOR ANY FURTHER CONCERNS OR QUESTIONS, FEEL FREE TO CONTACT YOUR DOCTOR'S OFFICE. Objective - Vital Signs/Intake and Output Vital Signs (last 24 hours): Temp Pulse Resp BP Pulse Ox 98.8 F 127 H 18 108/68 100 06/08/17 04:00 06/08/17 04:00 06/08/17 04:00 06/08/17 04:00 06/07/17 00:00 Intake and Output: 06/08/17 06/08/17 06:59 18:59 Intake Total 150 Balance 150 - Medications Medications: Current Medications Famotidine (Pepcid) 40 mg PO DAILY [facility] Last Admin: 06/07/17 09:45 Dose: Not Given Potassium Chloride (K-Dur 20 Meq Er Tab) 20 meq PO DAILY [facility] Last Admin: 06/07/17 09:45 Dose: Not Given - Labs Labs: 06/08/17 01:34 06/07/17 06:30 PT 15.3 SECONDS (9.7-12.2) H 06/03/17 18:05 INR 1.4 06/03/17 18:05 APTT 26 SECONDS (21-34) 06/03/17 18:05
[2017-06-08 14:15] VITALS: BP 118/78; PULSE 99; RESP 20
[2017-06-08] MEDS: Potassium Chloride 20 mEq ER Tab PO SCH (15:01)
[2017-06-08 18:06] VITALS: TEMP 97.1
--- NOTE | 2017-06-08 18:52 | CP.PCM.PN ---
Subjective - Date & Time of Evaluation Date of Evaluation: 06/08/17 Time of Evaluation: 18:51 Objective - Vital Signs/Intake and Output Vital Signs (last 24 hours): Temp Pulse Resp BP Pulse Ox 97.1 F L 99 H 20 118/78 100 06/08/17 18:00 06/08/17 12:00 06/08/17 12:00 06/08/17 12:00 06/07/17 00:00 Intake and Output: 06/08/17 06/08/17 06:59 18:59 Intake Total 150 750 Balance 150 750 - Medications Medications: Current Medications Famotidine (Pepcid) 40 mg PO DAILY [facility] Last Admin: 06/08/17 15:02 Dose: Not Given Potassium Chloride (K-Dur 20 Meq Er Tab) 20 meq PO DAILY [facility] Last Admin: 06/08/17 15:01 Dose: Not Given - Labs Labs: 06/08/17 01:34 06/07/17 06:30 PT 15.3 SECONDS (9.7-12.2) H 06/03/17 18:05 INR 1.4 06/03/17 18:05 APTT 26 SECONDS (21-34) 06/03/17 18:05
== END 2017-06-08 20:22 | disposition home or self-care (01) | DRG 607 ==
LOC: C.ER 14:41 → C.9E 16:57 → C.9I 17:29
PROVIDERS: ADMIT Internal Medicine Critical Care Medicine; ATTEND Internal Medicine Critical Care Medicine
DX: B36.9 Superficial mycosis, unspecified (principal); C50.912 Malignant neoplasm of unspecified site of left female breast; D64.9 Anemia, unspecified; M06.9 Rheumatoid arthritis, unspecified; Z74.01 Bed confinement status; Z85.3 Personal history of malignant neoplasm of breast

== ENCOUNTER 2017-06-15 19:17 | Inpatient (IN) | payer MEDICARE, OTHER ==
[2017-06-15 19:17] VITALS: BMI 23.2
[2017-06-15] MEDS ORDERED: Tranexamic Acid 100 mg/ml IV STA (19:32)
--- NOTE | 2017-06-15 19:37 | C.PDOC ---
History Of Present Illness Patient is a 51 y/o F with anemia and fungating cancerous breast mass, with multiple prior visits for bleeding from mass, requiring embolization and transfusion presents today with bleeding from her mass today. Patient states she applied a pressure dressing on it but was unable to control the bleeding. Patient reports she will be starting hospice care soon but still wants full treatment until then. Denies chest pain, SOB, or abdominal pain. Time Seen by Provider: 06/15/17 19:24 Chief Complaint (Nursing): Abnormal Skin Integrity History Per: Patient History/Exam Limitations: no limitations Onset/Duration Of Symptoms: Hrs Current Symptoms Are (Timing): Still Present Recent travel outside of the [place]: No Past Medical History Reviewed: Historical Data, Nursing Documentation, Vital Signs Vital Signs: Last Vital Signs Temp 99.3 F 06/15/17 19:20 Pulse 146 H 06/15/17 22:49 Resp 19 06/15/17 22:49 BP 109/70 06/15/17 22:49 Pulse Ox 100 06/15/17 22:51 - Medical History PMH: Anemia, Anxiety, Arthritis (severe athritis), Malignancy, Rheumatoid Arthritis (SEVERE CONTRACTURES) - [facility] Procedures EXCISION OF LEFT BREAST, OPEN APPROACH, DIAGNOSTIC (11/06/16) FLUOROSCOPY OF OTHER UPPER ARTERIES USING L OSM CONTRAST (04/05/17) INSERTION OF INFUSION DEV INTO L FEMOR VEIN, PERC APPROACH (04/05/17) OCCLUSION OF L AXILLA ART WITH INTRALUM DEV, PERC APPROACH (04/05/17) OCCLUSION OF L INT MAMM ART WITH INTRALUM DEV, PERC APPROACH (04/05/17) Family History: States: Unknown Family Hx - Social History Hx Tobacco Use: No Hx Alcohol Use: No Hx Substance Use: No - Immunization History Hx Tetanus Toxoid Vaccination: No Hx Influenza Vaccination: Yes Hx Pneumococcal Vaccination: No Review Of Systems Except As Marked, All Systems Reviewed And Found Negative. Constitutional: Positive for: Other (Fatigue) Cardiovascular: Negative for: Chest Pain Respiratory: Negative for: Shortness of Breath Gastrointestinal: Negative for: Abdominal Pain Skin: Positive for: Other (Bleeding from mass) Physical Exam - Physical Exam Appears: Chronically Ill, Other (Cachectic) Skin: Warm, Dry Head: Atraumatic, Normacephalic Eye(s): bilateral: Normal Inspection Oral Mucosa: Moist Neck: Normal, Supple Chest: Other (Pressure dressing to left side(refuses to allow me to look)) Cardiovascular: Rhythm Regular Respiratory: Normal Breath Sounds, No Rales, No Rhonchi, No Wheezing Gastrointestinal/Abdominal: Soft, No Tenderness Neurological/Psych: Oriented x3, Normal Speech, Other (No focal deficits) ED Course And Treatment - Laboratory Results Result Diagrams: 06/15/17 20:31 06/15/17 20:31 O2 Sat by Pulse Oximetry: 100 (Room air) Pulse Ox Interpretation: Normal Central Line Placement - Central Line Placement Indication: Unable To Obtain Adequate Peripheral Access Central Line Placement: Left: Femoral The Area Was Thoroughly Prepared With: Betadine, Draped Using Sterile Technique Area Was Locally Anesthetized With: Lidocaine 1% Procedure: Triple Lumen, Placed Using Standard Seldinger Technique, Catheter Was Sewn Into Place, Sterile Dressing Placed Over Line, Procedure Tolerated Well , CXR Ordered To Confirm Placement Medical Decision Making Medical Decision Making: Plan: * Blood work * Tranexamic acid * * Patient refusing to let me see her pressure dressing. No bleeding through the dressing. Refusing EJ access. Arterial stick was performed for blood draw. Patient has no venous access on extremities available due to contractures. Patient consented to TLC placement for transfusion. General surgery resident called to bedside as patient will only allow surgeon to assess her bleeding mass. Spoke to Dr. Martinez who will admit for anemia requiring transfusion and surgical evaluation. Due to WBC 25 with bandemia, and fungating mass, he is requesting broad spectrum antibiotics ordered Disposition - Disposition Disposition: HOSPITALIZED Disposition Time: 22:18 Condition: FAIR - Clinical Impression Clinical Impression: Anemia, Breast mass, left - Scribe Statement The provider has reviewed the documentation as recorded by the Leslyibravindra Cárdenas All medical record entries made by the Leslyibravindra were at my direction and personally dictated by me. I have reviewed the chart and agree that the record accurately reflects my personal performance of the history, physical exam, medical decision making, and the department course for this patient. I have also personally directed, reviewed, and agree with the discharge instructions and disposition.
[2017-06-15 20:45] LABS: BASO # 0.2 K/uL (0.0-0.2); EOS # 0.1 K/uL (0.0-0.7); MEAN CELL VOLUME 85.1 fL (81.0-99.0); MONO # 0.8 K/uL (0.0-0.8); RBC 1.82 Mil/uL (3.80-5.20)
[2017-06-15 20:48] LABS: BASO % 0.8 % (0.0-2.0); EOS % 0.4 % (0.0-4.0); LYMPH # 1.4 K/uL (1.0-4.3); LYMPH % 5.4 % (20.0-40.0); MEAN CORPUSCULAR HEMOGLOBIN 28.3 pg (27.0-31.0); MEAN CORPUSCULAR HGB CONC 33.2 g/dL (33.0-37.0); MEAN PLATELET VOLUME 7.2 fL (7.2-11.7); MONO % 3.3 % (0.0-10.0); NEUT # 22.6 K/uL (1.8-7.0); NEUT % 90.1 % (50.0-75.0); NRBC % 1.1 % (0.0-2.0); PLATELET COUNT 463 K/uL (130-400); RED CELL DISTRIBUTION WIDTH 19.4 % (11.5-14.5); WHITE BLOOD COUNT 25.1 K/uL (4.8-10.8)
[2017-06-15 20:50] LABS: HEMOGLOBIN 5.1 g/dL (11.0-16.0)
[2017-06-15 20:56] LABS: ALB/GLOB RATIO 0.8 (1.0-2.1); ALBUMIN 2.7 g/dL (3.5-5.0); ALT/SGPT 30 U/L (9-52); AST/SGOT 56 U/L (14-36); BLOOD UREA NITROGEN 16 mg/dL (7-17); CALCIUM 8.6 mg/dl (8.6-10.4); GFR AFRICAN-AMERICAN > 60; GFR NON-AFRICAN AMERICAN > 60
[2017-06-15 21:55] LABS: BANDS 7 % (0-2); LYMPHOCYTE 5 % (20-40); MONOCYTE 4 % (0-10); NEUTROPHIL 84 % (50-75); TOTAL CELLS COUNTED 100
[2017-06-15 21:56] LABS: ANISOCYTOSIS SLIGHT; PLATELET ESTIMATE INCREASED (NORMAL); POIKILOCYTOSIS SLIGHT
[2017-06-15] MEDS ORDERED: Sodium Chloride 0.9% 1,000 ML IV ONE (22:19)
[2017-06-15 22:36] LABS: INR 1.3; PROTHROMBIN TIME 15.1 SECONDS (9.7-12.2)
[2017-06-15] MEDS ORDERED: Sodium Chloride 0.9% 1,000 ML ONE (22:48)
[2017-06-15] MEDS ORDERED: Cefepime IV 1 gm in Dextrose 1 GM/50 ML BAG IVPB STA (22:50)
[2017-06-15] MEDS ORDERED: Vancomycin 1 gm/NS 200 ml 1 GM/200 ML BAG IVPB ONE (23:00)
[2017-06-15] MEDS ORDERED: Silver Nitrate Topical - Stick TOP ONE (23:03)
[2017-06-16] MEDS ORDERED: Sodium Chloride 0.9% 2,000 ML IV ONE (00:14)
--- NOTE | 2017-06-16 00:36 | CP.PCM.CON ---
History of Present Illness - History of Present Illness History of Present Illness: General Surgery consult note for Dr. Rodríguez Espinoza, PGY-1 Pt S & E at bedside. 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 Pt states that bleeding started today. Was bleeding at home, EMS called with ED finding of Hgb of 5.1 Patient states that her dressing is changed every other day by a home nurse. Patient states that she has received blood transfusions in past for bleeding. Admits to dizziness, feels faint. Denies chest pain, palpitations, SOB , dizziness, vertigo, fever/chills, abdominal pain, nausea/vomiting, diarrhea. PMH: Rheumatoid arthritis, breast carcinoma with fungating mass, anemia, vertigo PSH: Core needle bx of L breast mass All: Ciprofloxacin, ibuprofen, magnesium, PCN, diphenhydramine SH: denies tobacco, EtOH, illicit drug use Review of Systems - Review of Systems All systems: reviewed and no additional remarkable complaints except - Constitutional Constitutional: Weakness. absent: Chills, Fever - EENT Ears: Dizziness - Cardiovascular Cardiovascular: absent: Chest Pain - Gastrointestinal Gastrointestinal: absent: Abdominal Pain, Nausea, Vomiting - Integumentary Integumentary: Rash - Psychiatric Psychiatric: Anxiety Past Patient History - Infectious Disease Hx of Infectious Diseases: None - Past Medical History & Family History Past Medical History?: Yes - Past Social History Smoking Status: Never Smoked - CARDIAC Hx Cardiac Disorders: No - PULMONARY Hx Respiratory Disorders: No - NEUROLOGICAL Hx Neurological Disorder: No - HEENT Hx HEENT Problems: No - RENAL Hx Chronic Kidney Disease: No - ENDOCRINE/METABOLIC Hx Endocrine Disorders: No - HEMATOLOGICAL/ONCOLOGICAL Hx Anemia: Yes - INTEGUMENTARY Hx Dermatological Problems: Yes (SEE COMMENT) Other/Comment: left upper chest mass - MUSCULOSKELETAL/RHEUMATOLOGICAL Hx Arthritis: Yes (severe athritis) Hx Rheumatoid Arthritis: Yes (SEVERE CONTRACTURES) - GASTROINTESTINAL Hx Gastrointestinal Disorders: No - GENITOURINARY/GYNECOLOGICAL Hx Genitourinary Disorders: Yes (SEE COMMENT) Other/Comment: menopausal. breast CA - PSYCHIATRIC Hx Anxiety: Yes Hx Substance Use: No - SURGICAL HISTORY Hx Surgeries: Yes (SEE COMMENT) Hx Breast Biopsy: Yes (BREAST CA) Hx Section: Yes (x2) Other/Comment: d&c. cauterization done left chest - ANESTHESIA Hx Anesthesia: Yes Hx Anesthesia Reactions: No Meds Allergies/Adverse Reactions: Allergies Allergy/AdvReac Type Severity Reaction Status Date / Time ciprofloxacin [From Cipro] Allergy SWELLING Verified 06/15/17 19:26 ibuprofen Allergy RASH Verified 06/15/17 19:26 magnesium Allergy CONGESTION Verified 06/15/17 19:26 Penicillins Allergy SWELLING Verified 06/15/17 19:26 diphenhydramine AdvReac numbness Verified 06/15/17 19:26 [From Benadryl] on tongue and throath - Medications Medications: Current Medications Enoxaparin Sodium (Lovenox) 40 mg SC DAILY [facility] Ferrous Sulfate (Feosol) 325 mg PO DAILY [facility] Sodium Chloride (Sodium Chloride 0.9%) 2,000 mls @ 1,000 mls/hr IV .Q2H ONE Stop: 06/16/17 02:13 Pantoprazole Sodium (Protonix Ec Tab) 40 mg PO DAILY [facility] Physical Exam - Constitutional Appears: Cachectic, Chronically Ill - Head Exam Head Exam: ATRAUMATIC, NORMAL INSPECTION, NORMOCEPHALIC - Eye Exam Eye Exam: EOMI, Normal appearance - ENT Exam ENT Exam: Mucous Membranes Moist, Normal Exam - Neck Exam Neck exam: Positive for: Full Rom, Normal Inspection - Respiratory Exam Respiratory Exam: Chest Wall Tenderness, NORMAL BREATHING PATTERN Additional comments: Large fungating, bleeding breast cancer lesion on lateral aspect of left chest wall Multiple smaller lesions, few bleeding, on anterior chest wall Dressing saturated with sanguinous output - Cardiovascular Exam Cardiovascular Exam: REGULAR RHYTHM, +S1, +S2 - GI/Abdominal Exam GI & Abdominal Exam: Normal Bowel Sounds, Soft. absent: Distended, Firm, Guarding, Hernia - Extremities Exam Extremities exam: Positive for: normal inspection Additional comments: cachexic - Neurological Exam Neurological exam: Alert, CN II-XII Intact, Oriented x3 - Psychiatric Exam Psychiatric exam: Normal Affect, Normal Mood - Skin Additional comments: see chest wall exam for skin findings Results - Vital Signs Recent Vital Signs: Last Vital Signs Temp 99.3 F 06/15/17 19:20 Pulse 146 H 06/15/17 22:49 Resp 19 06/15/17 22:49 BP 109/70 06/15/17 22:49 Pulse Ox 100 06/15/17 23:43 - Labs Result Diagrams: 06/15/17 20:31 06/15/17 20:31 Labs: Laboratory Results - last 24 hr 06/15/17 06/15/17 06/15/17 20:31 20:31 20:34 WBC 25.1 H D RBC 1.82 L Hgb 5.1 L* D Hct 15.4 L MCV 85.1 D MCH 28.3 MCHC 33.2 RDW 19.4 H Plt Count 463 H D MPV 7.2 Neut % (Auto) 90.1 H Lymph % (Auto) 5.4 L [place] % (Auto) 3.3 Eos % (Auto) 0.4 Baso % (Auto) 0.8 Neut # 22.6 H Lymph # 1.4 [place] # 0.8 Eos # 0.1 Baso # 0.2 Neutrophils % (Manual) 84 H Band Neutrophils % 7 H Lymphocytes % (Manual) 5 L Monocytes % (Manual) 4 Platelet Estimate Increased H Poikilocytosis (manual Slight Anisocytosis (manual) Slight Macrocytosis (manual) Slight PT INR APTT Sodium 125 L Potassium 4.0 Chloride 94 L Carbon Dioxide 25 Anion Gap 11 BUN 16 Creatinine 0.5 L Est GFR ( Amer) > 60 Est GFR (Non-Af Amer) > 60 Random Glucose 227 H Calcium 8.6 Total Bilirubin 1.5 H AST 56 H D ALT 30 Alkaline Phosphatase 223 H D Total Protein 6.2 L Albumin 2.7 L Globulin 3.5 Albumin/Globulin Ratio 0.8 L Blood Type B POSITIVE Antibody Screen Positive Antibody Identification Anti K 06/15/17 22:18 WBC RBC Hgb Hct MCV MCH MCHC RDW Plt Count MPV Neut % (Auto) Lymph % (Auto) [place] % (Auto) Eos % (Auto) Baso % (Auto) Neut # Lymph # [place] # Eos # Baso # Neutrophils % (Manual) Band Neutrophils % Lymphocytes % (Manual) Monocytes % (Manual) Platelet Estimate Poikilocytosis (manual Anisocytosis (manual) Macrocytosis (manual) PT 15.1 H INR 1.3 APTT 26 Sodium Potassium Chloride Carbon Dioxide Anion Gap BUN Creatinine Est GFR ( Amer) Est GFR (Non-Af Amer) Random Glucose Calcium Total Bilirubin AST ALT Alkaline Phosphatase Total Protein Albumin Globulin Albumin/Globulin Ratio Blood Type Antibody Screen Antibody Identification Assessment & Plan - Assessment and Plan (Free Text) Assessment: 51F w/bleeding breast cancer lesions of left and anterior chest wall Plan: Surgicel and nitro sticks to bleeding parts of fungating breast cancer Dressing applied Dressing changes PRN Pain control Abx IVF Monitor H/H Transfuse PRN Will follow [facility] attending Olga, PGY-1 - Date & Time Date: 06/16/17 Time: 00:32
--- NOTE | 2017-06-16 07:36 | RAD ---
HISTORY: Confirmed TLC placement COMPARISON: 01/08/2017 FINDINGS: LUNGS: Questionable left lower lobe infiltrate. PLEURA: No significant pleural effusion identified, no pneumothorax apparent. CARDIOVASCULAR: No radiographic findings to suggest acute or significant cardiovascular disease. OSSEOUS STRUCTURES: No significant abnormalities. VISUALIZED UPPER ABDOMEN: Normal. OTHER FINDINGS: Left IDC catheter partially obscured by the overlying mandible. The tip is in the left internal jugular vein above the confluence with the left subclavian vein. IMPRESSION: Questionable left lower lobe infiltrate. Left IJ catheter tip identified and marked on the study. No pneumothorax or other adverse finding.
[2017-06-16] MEDS ORDERED: Enoxaparin 40 mg Syringe SC SCH (10:00)
--- NOTE | 2017-06-16 10:27 | CP.PCM.CON ---
<Shavon Hagen - Last Filed: 06/16/17 14:31> History of Present Illness - History of Present Illness History of Present Illness: Heme/Onc Consult for Dr. Kenia Holt Reason: bleeding breast mass, breast cancer 51 year old female with a history of rheumatoid arthritis, stage IV ER/CO negative, HER 2 positive breast cancer diagnosed 10/2016, admitted with bleeding of left breast mass. Patient admitted for same during previous admissions. She has undergone surgical debridement of her breast/axillary mass in the past. She has deferred chemotherapy and radiation treatments. She comes in with bleeding from mass after pressure dressing would not control bleeding. Admits to history of multiple PRBC transfusion. Past medical history: rheumatoid arthritis, stage IV ER/CO negative, HER 2 positive breast cancer diagnosed 10/2016 Past surgical history: Family history: Denies hematologic and oncologic problems Social history: Denies tobacco, alcohol,and illicit drug use. Allergies: cipro, ibuprofen, magnesium, PCN, diphenhydramine. Review of systems: All remaining review of systems including HEENT, cardiovascular, respiratory, gastrointestinal, genitourinary, musculoskeletal, dermatologic, neurologic, and psychiatric are negative unless mentioned in the HPI. Review of Systems - Constitutional Constitutional: absent: Chills, Fever, Headache - Breasts Breasts: Mass, Pain - Cardiovascular Cardiovascular: absent: Chest Pain - Respiratory Respiratory: absent: Dyspnea - Gastrointestinal Gastrointestinal: absent: Abdominal Pain - Genitourinary Genitourinary: absent: Difficulty Urinating - Musculoskeletal Musculoskeletal: Back Pain. absent: Numbness, Tingling - Neurological Neurological: Weakness - Endocrine Endocrine: Fatigue - Hematologic/Lymphatic Hematologic: Easy Bleeding Past Patient History - Infectious Disease Hx of Infectious Diseases: None - Past Medical History & Family History Past Medical History?: Yes - Past Social History Smoking Status: Never Smoked - CARDIAC Hx Cardiac Disorders: No - PULMONARY Hx Respiratory Disorders: No - NEUROLOGICAL Hx Neurological Disorder: No - HEENT Hx HEENT Problems: No - RENAL Hx Chronic Kidney Disease: No - ENDOCRINE/METABOLIC Hx Endocrine Disorders: No - HEMATOLOGICAL/ONCOLOGICAL Hx Anemia: Yes - INTEGUMENTARY Hx Dermatological Problems: Yes (SEE COMMENT) Other/Comment: left upper chest mass - MUSCULOSKELETAL/RHEUMATOLOGICAL Hx Arthritis: Yes (severe athritis) Hx Rheumatoid Arthritis: Yes (SEVERE CONTRACTURES) - GASTROINTESTINAL Hx Gastrointestinal Disorders: No - GENITOURINARY/GYNECOLOGICAL Hx Genitourinary Disorders: Yes (SEE COMMENT) Other/Comment: menopausal. breast CA - PSYCHIATRIC Hx Anxiety: Yes Hx Substance Use: No - SURGICAL HISTORY Hx Surgeries: Yes (SEE COMMENT) Hx Breast Biopsy: Yes (BREAST CA) Hx Section: Yes (x2) Other/Comment: d&c. cauterization done left chest - ANESTHESIA Hx Anesthesia: Yes Hx Anesthesia Reactions: No Meds Allergies/Adverse Reactions: Allergies Allergy/AdvReac Type Severity Reaction Status Date / Time ciprofloxacin [From Cipro] Allergy SWELLING Verified 06/15/17 19:26 ibuprofen Allergy RASH Verified 06/15/17 19:26 magnesium Allergy CONGESTION Verified 06/15/17 19:26 Penicillins Allergy SWELLING Verified 06/15/17 19:26 diphenhydramine AdvReac numbness Verified 06/15/17 19:26 [From Benadryl] on tongue and throath - Medications Medications: Current Medications Ferrous Sulfate (Feosol) 325 mg PO DAILY [facility] Pantoprazole Sodium (Protonix Ec Tab) 40 mg PO DAILY [facility] Physical Exam - Constitutional Appears: No Acute Distress, Older Than Stated Age, Cachectic, Chronically Ill - Head Exam Head Exam: NORMAL INSPECTION, NORMOCEPHALIC - Eye Exam Eye Exam: EOMI, Normal appearance - ENT Exam ENT Exam: Mucous Membranes Dry - Neck Exam Neck exam: Positive for: Normal Inspection - Respiratory Exam Respiratory Exam: Clear to Auscultation Bilateral - Cardiovascular Exam Cardiovascular Exam: REGULAR RHYTHM, +S1, +S2 - GI/Abdominal Exam GI & Abdominal Exam: Normal Bowel Sounds, Soft - Extremities Exam Extremities exam: Positive for: pedal edema. Negative for: full ROM - Neurological Exam Neurological exam: Alert, Oriented x3 - Psychiatric Exam Psychiatric exam: Normal Affect, Normal Mood - Skin Skin Exam: Dry, Pallor, Warm Additional comments: +left breast wound covered with dressing. Dressing is dry and clean. Results - Vital Signs Recent Vital Signs: Last Vital Signs Temp 98.4 F 06/16/17 09:25 Pulse 108 H 06/16/17 10:06 Resp 16 06/16/17 10:06 BP 101/68 06/16/17 10:06 Pulse Ox 100 06/16/17 10:06 - Labs Result Diagrams: 06/15/17 20:31 06/15/17 20:31 Labs: Laboratory Results - last 24 hr 06/15/17 06/15/17 06/15/17 20:31 20:31 20:34 WBC 25.1 H D RBC 1.82 L Hgb 5.1 L* D Hct 15.4 L MCV 85.1 D MCH 28.3 MCHC 33.2 RDW 19.4 H Plt Count 463 H D MPV 7.2 Neut % (Auto) 90.1 H Lymph % (Auto) 5.4 L Stearns % (Auto) 3.3 Eos % (Auto) 0.4 Baso % (Auto) 0.8 Neut # 22.6 H Lymph # 1.4 Stearns # 0.8 Eos # 0.1 Baso # 0.2 Neutrophils % (Manual) 84 H Band Neutrophils % 7 H Lymphocytes % (Manual) 5 L Monocytes % (Manual) 4 Platelet Estimate Increased H Poikilocytosis (manual Slight Anisocytosis (manual) Slight Macrocytosis (manual) Slight PT INR APTT Sodium 125 L Potassium 4.0 Chloride 94 L Carbon Dioxide 25 Anion Gap 11 BUN 16 Creatinine 0.5 L Est GFR ( Amer) > 60 Est GFR (Non-Af Amer) > 60 Random Glucose 227 H Calcium 8.6 Total Bilirubin 1.5 H AST 56 H D ALT 30 Alkaline Phosphatase 223 H D Total Protein 6.2 L Albumin 2.7 L Globulin 3.5 Albumin/Globulin Ratio 0.8 L Blood Type B POSITIVE Antibody Screen Positive Antibody Identification Anti K 06/15/17 22:18 WBC RBC Hgb Hct MCV MCH MCHC RDW Plt Count MPV Neut % (Auto) Lymph % (Auto) Stearns % (Auto) Eos % (Auto) Baso % (Auto) Neut # Lymph # Stearns # Eos # Baso # Neutrophils % (Manual) Band Neutrophils % Lymphocytes % (Manual) Monocytes % (Manual) Platelet Estimate Poikilocytosis (manual Anisocytosis (manual) Macrocytosis (manual) PT 15.1 H INR 1.3 APTT 26 Sodium Potassium Chloride Carbon Dioxide Anion Gap BUN Creatinine Est GFR ( Amer) Est GFR (Non-Af Amer) Random Glucose Calcium Total Bilirubin AST ALT Alkaline Phosphatase Total Protein Albumin Globulin Albumin/Globulin Ratio Blood Type Antibody Screen Antibody Identification Assessment & Plan - Assessment and Plan (Free Text) Assessment: (1) Anemia Assessment and Plan: acute blood loss from tumor surgical follow up transfusion support Status: Acute (2) Breast cancer Assessment and Plan: supportive care Patient seen and examined during rounds with Dr. Holt. Recommendations above as per attending. Trudy Hagen, PGY 3 <Sam Holt - Last Filed: 06/16/17 22:32> Meds - Medications Medications: Current Medications Ferrous Sulfate (Feosol) 325 mg PO DAILY [facility] Last Admin: 06/16/17 11:36 Dose: Not Given Pantoprazole Sodium (Protonix Ec Tab) 40 mg PO DAILY [facility] Last Admin: 06/16/17 11:36 Dose: Not Given Results - Vital Signs Recent Vital Signs: Last Vital Signs Temp 97.7 F 06/16/17 17:03 Pulse 98 H 06/16/17 20:48 Resp 20 06/16/17 17:03 BP 119/71 06/16/17 17:03 Pulse Ox 99 06/16/17 17:03 - Labs Result Diagrams: 06/16/17 17:40 06/15/17 20:31 Labs: Laboratory Results - last 24 hr 06/15/17 06/15/17 06/16/17 20:34 22:18 17:40 WBC 14.2 H RBC 2.50 L Hgb 7.6 L D Hct 21.5 L MCV 85.8 MCH 30.3 MCHC 35.3 RDW 16.2 H Plt Count 210 D MPV 7.4 Neut % (Auto) 86.7 H Lymph % (Auto) 8.6 L Stearns % (Auto) 4.2 Eos % (Auto) 0.1 Baso % (Auto) 0.4 Neut # 12.3 H Lymph # 1.2 Stearns # 0.6 Eos # 0.0 Baso # 0.1 Neutrophils % (Manual) 85 H Band Neutrophils % 5 H Lymphocytes % (Manual) 8 L Monocytes % (Manual) 2 Platelet Estimate Normal Poikilocytosis (manual Slight Anisocytosis (manual) Slight Microcytosis (manual) Slight Macrocytosis (manual) Slight PT 15.1 H INR 1.3 APTT 26 Blood Type B POSITIVE Antibody Screen Positive Antibody Identification Anti K Assessment & Plan - Assessment and Plan (Free Text) Assessment: Pt seen and examined, agree with residents consult note. 51 year old female with a history of stage IV breast cancer (ER/CO negative, HER2 positive). Pt has had frequent admissions for bleeding from chest wall requiring PRBC transfusion and iron. She cont. to defer systemic therapy for her breast cancer. Thank you for this interesting consult.
[2017-06-16] MEDS: Pantoprazole 40 mg EC Tab PO SCH (11:36)
[2017-06-16 17:43] LABS: BASO # 0.1 K/uL (0.0-0.2); BASO % 0.4 % (0.0-2.0); EOS % 0.1 % (0.0-4.0); HEMOGLOBIN 7.6 g/dL (11.0-16.0); LYMPH # 1.2 K/uL (1.0-4.3); LYMPH % 8.6 % (20.0-40.0); MEAN CELL VOLUME 85.8 fL (81.0-99.0); MEAN CORPUSCULAR HEMOGLOBIN 30.3 pg (27.0-31.0); MEAN CORPUSCULAR HGB CONC 35.3 g/dL (33.0-37.0); MEAN PLATELET VOLUME 7.4 fL (7.2-11.7); MONO # 0.6 K/uL (0.0-0.8); MONO % 4.2 % (0.0-10.0); NEUT # 12.3 K/uL (1.8-7.0); NEUT % 86.7 % (50.0-75.0); NRBC % 0.1 % (0.0-2.0); PLATELET COUNT 210 K/uL (130-400); RED CELL DISTRIBUTION WIDTH 16.2 % (11.5-14.5); WHITE BLOOD COUNT 14.2 K/uL (4.8-10.8)
[2017-06-16 19:22] LABS: ANISOCYTOSIS SLIGHT; BANDS 5 % (0-2); LYMPHOCYTE 8 % (20-40); MICROCYTOSIS SLIGHT; MONOCYTE 2 % (0-10); NEUTROPHIL 85 % (50-75); POIKILOCYTOSIS SLIGHT; TOTAL CELLS COUNTED 100
[2017-06-16 19:23] LABS: PLATELET ESTIMATE NORMAL (NORMAL)
--- NOTE | 2017-06-16 21:58 | CP.PCM.HP ---
Past Patient History - Infectious Disease Hx of Infectious Diseases: None - Past Medical History & Family History Past Medical History?: Yes - Past Social History Smoking Status: Never Smoked - CARDIAC Hx Cardiac Disorders: No - PULMONARY Hx Respiratory Disorders: No - NEUROLOGICAL Hx Neurological Disorder: No - HEENT Hx HEENT Problems: No - RENAL Hx Chronic Kidney Disease: No - ENDOCRINE/METABOLIC Hx Endocrine Disorders: No - HEMATOLOGICAL/ONCOLOGICAL Hx Anemia: Yes - INTEGUMENTARY Hx Dermatological Problems: Yes (SEE COMMENT) Other/Comment: left upper chest mass - MUSCULOSKELETAL/RHEUMATOLOGICAL Hx Arthritis: Yes (severe athritis) Hx Rheumatoid Arthritis: Yes (SEVERE CONTRACTURES) - GASTROINTESTINAL Hx Gastrointestinal Disorders: No - GENITOURINARY/GYNECOLOGICAL Hx Genitourinary Disorders: Yes (SEE COMMENT) Other/Comment: menopausal. breast CA - PSYCHIATRIC Hx Anxiety: Yes Hx Substance Use: No - SURGICAL HISTORY Hx Surgeries: Yes (SEE COMMENT) Hx Breast Biopsy: Yes (BREAST CA) Hx Section: Yes (x2) Other/Comment: d&c. cauterization done left chest - ANESTHESIA Hx Anesthesia: Yes Hx Anesthesia Reactions: No Meds Allergies/Adverse Reactions: Allergies Allergy/AdvReac Type Severity Reaction Status Date / Time ciprofloxacin [From Cipro] Allergy SWELLING Verified 06/15/17 19:26 ibuprofen Allergy RASH Verified 06/15/17 19:26 magnesium Allergy CONGESTION Verified 06/15/17 19:26 Penicillins Allergy SWELLING Verified 06/15/17 19:26 diphenhydramine AdvReac numbness Verified 06/15/17 19:26 [From Benadryl] on tongue and throath Physical Exam - Constitutional Appears: Well - Head Exam Head Exam: ATRAUMATIC, NORMAL INSPECTION, NORMOCEPHALIC - Eye Exam Eye Exam: EOMI, Normal appearance, PERRL Pupil Exam: NORMAL ACCOMODATION, PERRL - ENT Exam ENT Exam: Mucous Membranes Moist, Normal Exam - Neck Exam Neck exam: Positive for: Normal Inspection - Respiratory Exam Respiratory Exam: Decreased Breath Sounds - Cardiovascular Exam Cardiovascular Exam: REGULAR RHYTHM, +S1, +S2 - GI/Abdominal Exam GI & Abdominal Exam: Diminished Bowel Sounds, Soft - Rectal Exam Rectal Exam: Deferred Results - Vital Signs Recent Vital Signs: Last Vital Signs Temp 97.7 F 06/16/17 17:03 Pulse 98 H 06/16/17 20:48 Resp 20 06/16/17 17:03 BP 119/71 06/16/17 17:03 Pulse Ox 99 06/16/17 17:03 - Labs Result Diagrams: 06/16/17 17:40 06/15/17 20:31 Labs: Laboratory Results - last 24 hr 06/15/17 06/15/17 06/16/17 20:34 22:18 17:40 WBC 14.2 H RBC 2.50 L Hgb 7.6 L D Hct 21.5 L MCV 85.8 MCH 30.3 MCHC 35.3 RDW 16.2 H Plt Count 210 D MPV 7.4 Neut % (Auto) 86.7 H Lymph % (Auto) 8.6 L Bell % (Auto) 4.2 Eos % (Auto) 0.1 Baso % (Auto) 0.4 Neut # 12.3 H Lymph # 1.2 Bell # 0.6 Eos # 0.0 Baso # 0.1 Neutrophils % (Manual) 85 H Band Neutrophils % 5 H Lymphocytes % (Manual) 8 L Monocytes % (Manual) 2 Platelet Estimate Normal Poikilocytosis (manual Slight Anisocytosis (manual) Slight Microcytosis (manual) Slight Macrocytosis (manual) Slight PT 15.1 H INR 1.3 APTT 26 Blood Type B POSITIVE Antibody Screen Positive Antibody Identification Anti K
[2017-06-17 07:26] LABS: BASO % 0.3 % (0.0-2.0); EOS # 0.1 K/uL (0.0-0.7); EOS % 0.7 % (0.0-4.0); HEMOGLOBIN 7.5 g/dL (11.0-16.0); LYMPH # 1.8 K/uL (1.0-4.3); MEAN CELL VOLUME 85.7 fL (81.0-99.0); MEAN CORPUSCULAR HEMOGLOBIN 30.4 pg (27.0-31.0); MEAN CORPUSCULAR HGB CONC 35.4 g/dL (33.0-37.0); MEAN PLATELET VOLUME 7.6 fL (7.2-11.7); MONO # 0.6 K/uL (0.0-0.8); MONO % 4.3 % (0.0-10.0); NEUT # 12.1 K/uL (1.8-7.0); NEUT % 82.7 % (50.0-75.0); NRBC % 0.5 % (0.0-2.0); RBC 2.46 Mil/uL (3.80-5.20); RED CELL DISTRIBUTION WIDTH 16.2 % (11.5-14.5); WHITE BLOOD COUNT 14.7 K/uL (4.8-10.8)
[2017-06-17 07:48] LABS: ALB/GLOB RATIO 0.6 (1.0-2.1); ALBUMIN 2.2 g/dL (3.5-5.0); ALT/SGPT 23 U/L (9-52); AST/SGOT 71 U/L (14-36); BLOOD UREA NITROGEN 16 mg/dL (7-17); CALCIUM 8.5 mg/dl (8.6-10.4); GFR AFRICAN-AMERICAN > 60; GFR NON-AFRICAN AMERICAN > 60
[2017-06-17] MEDS ORDERED: Ferric Sodium Gluconat Complex 62.5 mg/5 ml Vial IVPB SCH (10:00)
[2017-06-17] MEDS: Pantoprazole 40 mg EC Tab PO SCH (10:39)
[2017-06-17] MEDS: Ferric Sodium Gluconat Complex 125 MG in Sodium Chloride 0.9% 100 ML IVPB SCH (10:39)
[2017-06-17] MEDS ORDERED: Potassium Chloride 20 mEq/15 ml LIQ UD PO ONE (11:45)
--- NOTE | 2017-06-17 13:56 | CP.PCM.PN ---
Subjective - Date & Time of Evaluation Date of Evaluation: 06/17/17 Time of Evaluation: 13:54 - Subjective Subjective: General Surgery Progress Note for Dr. Trinidad Pt seen and examined this Am at bedside. No acute events overnight. Hgb stable at 7.5. Pts dressing in place non bloody refusing dressing changes this AM requesting only Dr. Perez or Jacky. Denies fevers chills chest pain or SOB. Objective - Vital Signs/Intake and Output Vital Signs (last 24 hours): Temp Pulse Resp BP Pulse Ox 98.1 F 104 H 20 121/73 99 06/17/17 08:00 06/17/17 08:00 06/17/17 08:00 06/17/17 08:00 06/17/17 08:00 - Medications Medications: Current Medications Ferrous Sulfate (Feosol) 325 mg PO DAILY [facility] Last Admin: 06/17/17 10:36 Dose: Not Given Ferric Sodium Gluconate Complex 125 mg/ Sodium Chloride 110 mls @ 220 mls/hr IVPB DAILY [facility] Stop: 06/25/17 10:01 Last Admin: 06/17/17 10:39 Dose: 220 mls/hr Potassium Chloride (Potassium Chloride 20 Meq/100 Ml) 20 meq in 100 mls @ 50 mls/hr IVPB ONCE ONE Stop: 06/17/17 15:22 Last Admin: 06/17/17 13:49 Dose: 50 mls/hr Ondansetron HCl (Zofran Inj) 4 mg IVP DAILY@ONCE PRN PRN Reason: Nausea/Vomiting Last Admin: 06/17/17 13:48 Dose: 4 mg Pantoprazole Sodium (Protonix Ec Tab) 40 mg PO DAILY [facility] Last Admin: 06/17/17 10:39 Dose: Not Given - Labs Labs: 06/17/17 07:07 06/17/17 07:07 PT 15.1 SECONDS (9.7-12.2) H 06/15/17 22:18 INR 1.3 06/15/17 22:18 APTT 26 SECONDS (21-34) 06/15/17 22:18 - Constitutional Appears: Cachectic, Chronically Ill - Head Exam Head Exam: ATRAUMATIC, NORMAL INSPECTION, NORMOCEPHALIC - Eye Exam Eye Exam: EOMI, Normal appearance - ENT Exam ENT Exam: Mucous Membranes Moist, Normal Exam - Neck Exam Neck exam: Positive for: Full Rom, Normal Inspection - Respiratory Exam Respiratory Exam: Chest Wall Tenderness, NORMAL BREATHING PATTERN dressing clean dry and intact - Cardiovascular Exam Cardiovascular Exam: REGULAR RHYTHM, +S1, +S2 - GI/Abdominal Exam GI & Abdominal Exam: Normal Bowel Sounds, Soft. absent: Distended, Firm, Guarding, Hernia - Extremities Exam Extremities exam: Positive for: normal inspection Additional comments: cachexic - Neurological Exam Neurological exam: Alert, CN II-XII Intact, Oriented x3 - Psychiatric Exam Psychiatric exam: Normal Affect, Normal Mood - Skin Additional comments: see chest wall exam for skin findings Assessment and Plan - Assessment and Plan (Free Text) Assessment: 51F w/bleeding breast cancer lesions of left and anterior chest wall Dressing Changes PRN ABX IVF Medical management per primary team Will follow [facility] attending Farhad Bedoya PGY2
--- NOTE | 2017-06-17 15:00 | CP.PCM.PN ---
Subjective - Date & Time of Evaluation Date of Evaluation: 06/17/17 Time of Evaluation: 09:40 - Subjective Subjective: clinically same Objective - Vital Signs/Intake and Output Vital Signs (last 24 hours): Temp Pulse Resp BP Pulse Ox 98.1 F 104 H 20 121/73 99 06/17/17 08:00 06/17/17 08:00 06/17/17 08:00 06/17/17 08:00 06/17/17 08:00 - Medications Medications: Current Medications Ferrous Sulfate (Feosol) 325 mg PO DAILY [facility] Last Admin: 06/17/17 10:36 Dose: Not Given Ferric Sodium Gluconate Complex 125 mg/ Sodium Chloride 110 mls @ 220 mls/hr IVPB DAILY [facility] Stop: 06/25/17 10:01 Last Admin: 06/17/17 10:39 Dose: Not Given Potassium Chloride (Potassium Chloride 20 Meq/100 Ml) 20 meq in 100 mls @ 50 mls/hr IVPB ONCE ONE Stop: 06/17/17 15:22 Last Admin: 06/17/17 13:49 Dose: 50 mls/hr Ondansetron HCl (Zofran Inj) 4 mg IVP DAILY@ONCE PRN PRN Reason: Nausea/Vomiting Last Admin: 06/17/17 13:48 Dose: 4 mg Pantoprazole Sodium (Protonix Ec Tab) 40 mg PO DAILY [facility] Last Admin: 06/17/17 10:39 Dose: Not Given - Labs Labs: 06/17/17 07:07 06/17/17 07:07 PT 15.1 SECONDS (9.7-12.2) H 06/15/17 22:18 INR 1.3 06/15/17 22:18 APTT 26 SECONDS (21-34) 06/15/17 22:18 - Constitutional Appears: Well - Head Exam Head Exam: ATRAUMATIC, NORMAL INSPECTION, NORMOCEPHALIC - Eye Exam Eye Exam: EOMI, Normal appearance, PERRL Pupil Exam: NORMAL ACCOMODATION, PERRL - ENT Exam ENT Exam: Mucous Membranes Moist, Normal Exam - Neck Exam Neck Exam: Full ROM, Normal Inspection. absent: Lymphadenopathy - Respiratory Exam Respiratory Exam: Decreased Breath Sounds - Cardiovascular Exam Cardiovascular Exam: REGULAR RHYTHM, +S1, +S2 - GI/Abdominal Exam GI & Abdominal Exam: Soft, Diminished Bowel Sounds - Rectal Exam Rectal Exam: Deferred
[2017-06-17] MEDS ORDERED: Potassium Chloride 20 mEq ER Tab PO STA (20:39)
[2017-06-18 07:10] LABS: BASO # 0.1 K/uL (0.0-0.2); BASO % 0.4 % (0.0-2.0); EOS # 0.1 K/uL (0.0-0.7); EOS % 0.5 % (0.0-4.0); HEMOGLOBIN 6.7 g/dL (11.0-16.0); LYMPH # 1.4 K/uL (1.0-4.3); MEAN CELL VOLUME 86.4 fL (81.0-99.0); MEAN CORPUSCULAR HEMOGLOBIN 28.9 pg (27.0-31.0); MEAN CORPUSCULAR HGB CONC 33.4 g/dL (33.0-37.0); MEAN PLATELET VOLUME 7.9 fL (7.2-11.7); MONO # 0.6 K/uL (0.0-0.8); MONO % 4.3 % (0.0-10.0); NEUT % 83.8 % (50.0-75.0); NRBC % 0.1 % (0.0-2.0); RBC 2.33 Mil/uL (3.80-5.20); WHITE BLOOD COUNT 13.1 K/uL (4.8-10.8)
[2017-06-18 07:38] LABS: ALB/GLOB RATIO 0.6 (1.0-2.1); ALBUMIN 2.3 g/dL (3.5-5.0); ALT/SGPT 24 U/L (9-52); AST/SGOT 69 U/L (14-36); BLOOD UREA NITROGEN 15 mg/dL (7-17); CALCIUM 8.4 mg/dl (8.6-10.4); GFR AFRICAN-AMERICAN > 60; GFR NON-AFRICAN AMERICAN > 60
[2017-06-18] MEDS ORDERED: Ferric Sodium Gluconat Complex 62.5 mg/5 ml Vial ONE (10:03)
[2017-06-18] MEDS: Pantoprazole 40 mg EC Tab PO SCH (10:17)
[2017-06-18] MEDS: Ferric Sodium Gluconat Complex 125 MG in Sodium Chloride 0.9% 100 ML IVPB SCH (10:23)
--- NOTE | 2017-06-18 12:44 | CP.PCM.PN ---
Subjective - Date & Time of Evaluation Date of Evaluation: 06/18/17 Time of Evaluation: 12:42 - Subjective Subjective: General surgery progress note for Dr. Rodríguez Espinoza, PGY-1 Pt S & E at bedside. Pt reports poor appetite, nausea, anxiety regarding potential for bleeding. Has not had dressing change since night. Denies emesis, F & C, CP, palpitations, dizziness, other complaints. Objective - Vital Signs/Intake and Output Vital Signs (last 24 hours): Temp Pulse Resp BP Pulse Ox 98.1 F 110 H 20 116/73 97 06/18/17 08:47 06/18/17 08:47 06/18/17 08:47 06/18/17 08:47 06/18/17 08:47 Intake and Output: 06/18/17 06/18/17 06:59 18:59 Intake Total 400 Balance 400 - Medications Medications: Current Medications Ferrous Sulfate (Feosol) 325 mg PO DAILY [facility] Last Admin: 06/18/17 10:17 Dose: 325 mg Ferric Sodium Gluconate Complex 125 mg/ Sodium Chloride 110 mls @ 220 mls/hr IVPB DAILY [facility] Stop: 06/25/17 10:01 Last Admin: 06/18/17 10:23 Dose: 220 mls/hr Ondansetron HCl (Zofran Inj) 4 mg IVP DAILY@ONCE PRN PRN Reason: Nausea/Vomiting Last Admin: 06/17/17 13:48 Dose: 4 mg Pantoprazole Sodium (Protonix Ec Tab) 40 mg PO DAILY [facility] Last Admin: 06/18/17 10:17 Dose: 40 mg - Labs Labs: 06/18/17 07:02 06/18/17 07:02 PT 15.1 SECONDS (9.7-12.2) H 06/15/17 22:18 INR 1.3 06/15/17 22:18 APTT 26 SECONDS (21-34) 06/15/17 22:18 - Constitutional Appears: Non-toxic, No Acute Distress, Cachectic - Head Exam Head Exam: ATRAUMATIC, NORMAL INSPECTION, NORMOCEPHALIC - Eye Exam Eye Exam: EOMI, Normal appearance - ENT Exam ENT Exam: Mucous Membranes Moist, Normal Exam - Neck Exam Neck Exam: Full ROM, Normal Inspection - Respiratory Exam Respiratory Exam: NORMAL BREATHING PATTERN. absent: Chest Wall Tenderness Additional comments: Multiple anterior cancerous lesions over chest wall, large fungating mass over left mid-axillary line with some bleeding from margins. - Cardiovascular Exam Cardiovascular Exam: REGULAR RHYTHM, +S1, +S2 - GI/Abdominal Exam GI & Abdominal Exam: Soft. absent: Distended, Firm, Guarding - Extremities Exam Extremities Exam: absent: Normal Inspection (cachexia and thickened joints) - Neurological Exam Neurological Exam: Alert, Awake, CN II-XII Intact, Oriented x3 - Psychiatric Exam Psychiatric exam: Anxious - Skin Skin Exam: Normal Color, Warm Additional comments: see chest exam for skin findings Assessment and Plan - Assessment and Plan (Free Text) Assessment: 51F w/bleeding breast cancer lesions of left and anterior chest wall Plan: Dressing Changes PRN as pt allows Will change dressing today when son returns ABX IVF Cont supplements Medical management per primary team Will follow [facility] attending Olga, PGY-1
--- NOTE | 2017-06-18 17:58 | CP.PCM.PN ---
Subjective - Date & Time of Evaluation Date of Evaluation: 06/18/17 Time of Evaluation: 09:20 - Subjective Subjective: clinically same Objective - Vital Signs/Intake and Output Vital Signs (last 24 hours): Temp Pulse Resp BP Pulse Ox 98.1 F 110 H 20 116/73 97 06/18/17 08:47 06/18/17 08:47 06/18/17 08:47 06/18/17 08:47 06/18/17 08:47 Intake and Output: 06/18/17 06/18/17 06:59 18:59 Intake Total 400 Balance 400 - Medications Medications: Current Medications Ferrous Sulfate (Feosol) 325 mg PO DAILY [facility] Last Admin: 06/18/17 10:17 Dose: 325 mg Ferric Sodium Gluconate Complex 125 mg/ Sodium Chloride 110 mls @ 220 mls/hr IVPB DAILY [facility] Stop: 06/25/17 10:01 Last Admin: 06/18/17 10:23 Dose: 220 mls/hr Ondansetron HCl (Zofran Inj) 4 mg IVP DAILY@ONCE PRN PRN Reason: Nausea/Vomiting Last Admin: 06/17/17 13:48 Dose: 4 mg Pantoprazole Sodium (Protonix Ec Tab) 40 mg PO DAILY [facility] Last Admin: 06/18/17 10:17 Dose: 40 mg - Labs Labs: 06/18/17 07:02 06/18/17 07:02 PT 15.1 SECONDS (9.7-12.2) H 06/15/17 22:18 INR 1.3 06/15/17 22:18 APTT 26 SECONDS (21-34) 06/15/17 22:18 - Constitutional Appears: Well - Head Exam Head Exam: ATRAUMATIC, NORMAL INSPECTION, NORMOCEPHALIC - Eye Exam Eye Exam: EOMI, Normal appearance, PERRL Pupil Exam: NORMAL ACCOMODATION, PERRL - ENT Exam ENT Exam: Mucous Membranes Moist, Normal Exam - Neck Exam Neck Exam: Full ROM, Normal Inspection. absent: Lymphadenopathy - Respiratory Exam Respiratory Exam: Decreased Breath Sounds - Cardiovascular Exam Cardiovascular Exam: REGULAR RHYTHM, +S1, +S2 - GI/Abdominal Exam GI & Abdominal Exam: Soft, Diminished Bowel Sounds - Rectal Exam Rectal Exam: Deferred
[2017-06-19] MEDS: Pantoprazole 40 mg EC Tab PO SCH (10:29)
[2017-06-19 10:31] LABS: BASO % 0.3 % (0.0-2.0); EOS # 0.1 K/uL (0.0-0.7); EOS % 0.7 % (0.0-4.0); HEMOGLOBIN 7.6 g/dL (11.0-16.0); LYMPH # 1.5 K/uL (1.0-4.3); LYMPH % 12.3 % (20.0-40.0); MEAN CORPUSCULAR HEMOGLOBIN 30.3 pg (27.0-31.0); MEAN CORPUSCULAR HGB CONC 34.8 g/dL (33.0-37.0); MEAN PLATELET VOLUME 8.3 fL (7.2-11.7); MONO # 0.5 K/uL (0.0-0.8); NEUT # 10.3 K/uL (1.8-7.0); NEUT % 82.7 % (50.0-75.0); NRBC % 0.1 % (0.0-2.0); RBC 2.52 Mil/uL (3.80-5.20); RED CELL DISTRIBUTION WIDTH 16.4 % (11.5-14.5); WHITE BLOOD COUNT 12.4 K/uL (4.8-10.8)
[2017-06-19 10:40] LABS: ALB/GLOB RATIO 0.7 (1.0-2.1); ALBUMIN 2.3 g/dL (3.5-5.0); ALT/SGPT 20 U/L (9-52); AST/SGOT 69 U/L (14-36); BLOOD UREA NITROGEN 16 mg/dL (7-17); CALCIUM 8.6 mg/dl (8.6-10.4); GFR AFRICAN-AMERICAN > 60; GFR NON-AFRICAN AMERICAN > 60
[2017-06-19] MEDS: Ferric Sodium Gluconat Complex 125 MG in Sodium Chloride 0.9% 100 ML IVPB SCH (10:42)
--- NOTE | 2017-06-19 15:24 | CP.PCM.PN ---
Subjective - Date & Time of Evaluation Date of Evaluation: 06/19/17 Time of Evaluation: 06:55 - Subjective Subjective: General surgery progress note for Dr. Trinidad Patient seen and examined at bedside. No acute event overnight. Patient denies pain. Patient states that there has not been any signs of bleeding since change. Patient reports anxiety due to chance of bleeding. She has no other complaints at this time. Objective - Vital Signs/Intake and Output Vital Signs (last 24 hours): Temp Pulse Resp BP Pulse Ox 98.6 F 103 H 20 109/73 97 06/18/17 23:42 06/19/17 08:00 06/18/17 23:42 06/18/17 23:42 06/18/17 23:42 Intake and Output: 06/19/17 06/19/17 06:59 18:59 Intake Total 600 Balance 600 - Medications Medications: Current Medications Ferrous Sulfate (Feosol) 325 mg PO DAILY [facility] Last Admin: 06/19/17 10:30 Dose: Not Given Ferric Sodium Gluconate Complex 125 mg/ Sodium Chloride 110 mls @ 220 mls/hr IVPB DAILY [facility] Stop: 06/25/17 10:01 Last Admin: 06/19/17 10:42 Dose: 220 mls/hr Megestrol Acetate (Megace) 40 mg PO DAILY [facility] Last Admin: 06/19/17 10:44 Dose: 40 mg Ondansetron HCl (Zofran Inj) 4 mg IVP DAILY@ONCE PRN PRN Reason: Nausea/Vomiting Last Admin: 06/17/17 13:48 Dose: 4 mg Pantoprazole Sodium (Protonix Ec Tab) 40 mg PO DAILY [facility] Last Admin: 06/19/17 10:29 Dose: Not Given - Labs Labs: 06/19/17 10:11 06/19/17 10:11 PT 15.1 SECONDS (9.7-12.2) H 06/15/17 22:18 INR 1.3 06/15/17 22:18 APTT 26 SECONDS (21-34) 06/15/17 22:18 - Constitutional Appears: No Acute Distress - Eye Exam Eye Exam: Normal appearance - ENT Exam ENT Exam: Mucous Membranes Moist - Respiratory Exam Respiratory Exam: NORMAL BREATHING PATTERN - Cardiovascular Exam Cardiovascular Exam: REGULAR RHYTHM - GI/Abdominal Exam GI & Abdominal Exam: Soft. absent: Distended, Tenderness - Extremities Exam Additional comments: extremities cachetic and contracted - Neurological Exam Neurological Exam: Alert, Awake, Oriented x3 - Psychiatric Exam Psychiatric exam: Normal Affect, Normal Mood - Skin Skin Exam: Dry, Normal Color, Warm Additional comments: breast dressing in place - clean,dry, intact Assessment and Plan - Assessment and Plan (Free Text) Plan: 51 F with bleeding tumors on chest wall -Hgb stable after transfusion -Dressing changes PRN -Patient clear for discharge from surgical standpoint -Discussed with Dr. Amos Rico PGY1
--- NOTE | 2017-06-19 19:48 | CP.PCM.PN ---
Subjective - Date & Time of Evaluation Date of Evaluation: 06/19/17 Time of Evaluation: 09:20 - Subjective Subjective: clinically same Objective - Vital Signs/Intake and Output Vital Signs (last 24 hours): Temp Pulse Resp BP Pulse Ox 98.3 F 120 H 22 122/74 97 06/19/17 19:36 06/19/17 19:36 06/19/17 19:36 06/19/17 19:36 06/18/17 23:42 Intake and Output: 06/19/17 06/20/17 18:59 06:59 Intake Total 0 Balance 0 - Medications Medications: Current Medications Ferrous Sulfate (Feosol) 325 mg PO DAILY [facility] Last Admin: 06/19/17 10:30 Dose: Not Given Ferric Sodium Gluconate Complex 125 mg/ Sodium Chloride 110 mls @ 220 mls/hr IVPB DAILY [facility] Stop: 06/25/17 10:01 Last Admin: 06/19/17 10:42 Dose: 220 mls/hr Megestrol Acetate (Megace) 40 mg PO DAILY [facility] Last Admin: 06/19/17 10:44 Dose: 40 mg Ondansetron HCl (Zofran Inj) 4 mg IVP DAILY@ONCE PRN PRN Reason: Nausea/Vomiting Last Admin: 06/17/17 13:48 Dose: 4 mg Pantoprazole Sodium (Protonix Ec Tab) 40 mg PO DAILY [facility] Last Admin: 06/19/17 10:29 Dose: Not Given - Labs Labs: 06/19/17 10:11 06/19/17 10:11 PT 15.1 SECONDS (9.7-12.2) H 06/15/17 22:18 INR 1.3 06/15/17 22:18 APTT 26 SECONDS (21-34) 06/15/17 22:18 - Constitutional Appears: Well - Head Exam Head Exam: ATRAUMATIC, NORMAL INSPECTION, NORMOCEPHALIC - Eye Exam Eye Exam: EOMI, Normal appearance, PERRL Pupil Exam: NORMAL ACCOMODATION, PERRL - ENT Exam ENT Exam: Mucous Membranes Moist, Normal Exam - Neck Exam Neck Exam: Full ROM, Normal Inspection. absent: Lymphadenopathy - Respiratory Exam Respiratory Exam: Decreased Breath Sounds - Cardiovascular Exam Cardiovascular Exam: REGULAR RHYTHM, +S1, +S2 - GI/Abdominal Exam GI & Abdominal Exam: Soft, Diminished Bowel Sounds - Rectal Exam Rectal Exam: Deferred
--- NOTE | 2017-06-19 21:52 | CP.PCM.PN ---
Subjective - Date & Time of Evaluation Date of Evaluation: 06/17/17 Time of Evaluation: 18:00 - Subjective Subjective: No complaints. Objective - Vital Signs/Intake and Output Vital Signs (last 24 hours): Temp Pulse Resp BP Pulse Ox 98.2 F 110 H 20 110/67 97 06/19/17 20:36 06/19/17 20:36 06/19/17 20:36 06/19/17 20:36 06/18/17 23:42 Intake and Output: 06/19/17 06/20/17 18:59 06:59 Intake Total 0 Balance 0 - Medications Medications: Current Medications Ferrous Sulfate (Feosol) 325 mg PO DAILY [facility] Last Admin: 06/19/17 10:30 Dose: Not Given Ferric Sodium Gluconate Complex 125 mg/ Sodium Chloride 110 mls @ 220 mls/hr IVPB DAILY [facility] Stop: 06/25/17 10:01 Last Admin: 06/19/17 10:42 Dose: 220 mls/hr Megestrol Acetate (Megace) 40 mg PO DAILY [facility] Last Admin: 06/19/17 10:44 Dose: 40 mg Ondansetron HCl (Zofran Inj) 4 mg IVP DAILY@ONCE PRN PRN Reason: Nausea/Vomiting Last Admin: 06/17/17 13:48 Dose: 4 mg Pantoprazole Sodium (Protonix Ec Tab) 40 mg PO DAILY [facility] Last Admin: 06/19/17 10:29 Dose: Not Given - Labs Labs: 06/19/17 10:11 06/19/17 10:11 PT 15.1 SECONDS (9.7-12.2) H 06/15/17 22:18 INR 1.3 06/15/17 22:18 APTT 26 SECONDS (21-34) 06/15/17 22:18 - Head Exam Head Exam: ATRAUMATIC - Eye Exam Eye Exam: Normal appearance - ENT Exam ENT Exam: Mucous Membranes Dry - Respiratory Exam Respiratory Exam: NORMAL BREATHING PATTERN - Cardiovascular Exam Cardiovascular Exam: +S1, +S2 - GI/Abdominal Exam GI & Abdominal Exam: Normal Bowel Sounds Assessment and Plan (1) Anemia Assessment & Plan: tumor bleeding check ferritin transfusion support Status: Acute (2) Breast cancer Assessment & Plan: stage IV HEr2 positive deferred systemic therapy Status: Acute
--- NOTE | 2017-06-19 21:53 | CP.PCM.PN ---
Subjective - Date & Time of Evaluation Date of Evaluation: 06/19/17 Time of Evaluation: 20:00 - Subjective Subjective: Feeling better with transfusion Objective - Vital Signs/Intake and Output Vital Signs (last 24 hours): Temp Pulse Resp BP Pulse Ox 98.2 F 110 H 20 110/67 97 06/19/17 20:36 06/19/17 20:36 06/19/17 20:36 06/19/17 20:36 06/18/17 23:42 Intake and Output: 06/19/17 06/20/17 18:59 06:59 Intake Total 0 Balance 0 - Medications Medications: Current Medications Ferrous Sulfate (Feosol) 325 mg PO DAILY [facility] Last Admin: 06/19/17 10:30 Dose: Not Given Ferric Sodium Gluconate Complex 125 mg/ Sodium Chloride 110 mls @ 220 mls/hr IVPB DAILY [facility] Stop: 06/25/17 10:01 Last Admin: 06/19/17 10:42 Dose: 220 mls/hr Megestrol Acetate (Megace) 40 mg PO DAILY [facility] Last Admin: 06/19/17 10:44 Dose: 40 mg Ondansetron HCl (Zofran Inj) 4 mg IVP DAILY@ONCE PRN PRN Reason: Nausea/Vomiting Last Admin: 06/17/17 13:48 Dose: 4 mg Pantoprazole Sodium (Protonix Ec Tab) 40 mg PO DAILY [facility] Last Admin: 06/19/17 10:29 Dose: Not Given - Labs Labs: 06/19/17 10:11 06/19/17 10:11 PT 15.1 SECONDS (9.7-12.2) H 06/15/17 22:18 INR 1.3 06/15/17 22:18 APTT 26 SECONDS (21-34) 06/15/17 22:18 - Head Exam Head Exam: ATRAUMATIC - Eye Exam Eye Exam: Normal appearance - ENT Exam ENT Exam: Mucous Membranes Dry - Respiratory Exam Respiratory Exam: NORMAL BREATHING PATTERN - Cardiovascular Exam Cardiovascular Exam: +S1, +S2 - GI/Abdominal Exam GI & Abdominal Exam: Normal Bowel Sounds Assessment and Plan (1) Anemia Assessment & Plan: chronic disease, tumor bleeding will order ferritin to evaluate iron stores Status: Acute (2) Breast cancer Assessment & Plan: stage IV deferred systemic therapy Status: Acute
[2017-06-20 07:55] VITALS: RESP 20
[2017-06-20] MEDS: Pantoprazole 40 mg EC Tab PO SCH (09:26)
[2017-06-20] MEDS: Ferric Sodium Gluconat Complex 125 MG in Sodium Chloride 0.9% 100 ML IVPB SCH (10:45)
[2017-06-20 12:20] LABS: BASO % 0.4 % (0.0-2.0); EOS # 0.1 K/uL (0.0-0.7); EOS % 0.8 % (0.0-4.0); HEMOGLOBIN 8.6 g/dL (11.0-16.0); LYMPH # 1.3 K/uL (1.0-4.3); MEAN CELL VOLUME 85.5 fL (81.0-99.0); MEAN CORPUSCULAR HEMOGLOBIN 30.5 pg (27.0-31.0); MEAN CORPUSCULAR HGB CONC 35.7 g/dL (33.0-37.0); MEAN PLATELET VOLUME 8.5 fL (7.2-11.7); MONO # 0.6 K/uL (0.0-0.8); MONO % 4.3 % (0.0-10.0); NEUT # 11.1 K/uL (1.8-7.0); NEUT % 84.5 % (50.0-75.0); RBC 2.81 Mil/uL (3.80-5.20); RED CELL DISTRIBUTION WIDTH 16.6 % (11.5-14.5); WHITE BLOOD COUNT 13.1 K/uL (4.8-10.8)
[2017-06-20 12:30] LABS: ALB/GLOB RATIO 0.7 (1.0-2.1); ALBUMIN 2.4 g/dL (3.5-5.0); ALT/SGPT 28 U/L (9-52); AST/SGOT 71 U/L (14-36); BLOOD UREA NITROGEN 19 mg/dL (7-17); CALCIUM 8.7 mg/dl (8.6-10.4); GFR AFRICAN-AMERICAN > 60; GFR NON-AFRICAN AMERICAN > 60; MAGNESIUM 1.8 mg/dL (1.6-2.3)
--- NOTE | 2017-06-20 17:00 | CP.PCM.PN ---
Subjective - Date & Time of Evaluation Date of Evaluation: 06/20/17 Time of Evaluation: 11:00 - Subjective Subjective: clinically same Objective - Vital Signs/Intake and Output Vital Signs (last 24 hours): Temp Pulse Resp BP Pulse Ox 98.1 F 111 H 20 121/71 99 06/20/17 16:02 06/20/17 16:02 06/20/17 16:02 06/20/17 16:02 06/20/17 16:02 Intake and Output: 06/20/17 06/20/17 06:59 18:59 Intake Total 850 Output Total 500 Balance 350 - Medications Medications: Current Medications Ferrous Sulfate (Feosol) 325 mg PO DAILY [facility] Last Admin: 06/20/17 09:26 Dose: Not Given Ferric Sodium Gluconate Complex 125 mg/ Sodium Chloride 110 mls @ 220 mls/hr IVPB DAILY [facility] Stop: 06/25/17 10:01 Last Admin: 06/20/17 10:45 Dose: Not Given Megestrol Acetate (Megace) 40 mg PO DAILY [facility] Last Admin: 06/20/17 09:26 Dose: Not Given Ondansetron HCl (Zofran Inj) 4 mg IVP DAILY@ONCE PRN PRN Reason: Nausea/Vomiting Last Admin: 06/17/17 13:48 Dose: 4 mg Pantoprazole Sodium (Protonix Ec Tab) 40 mg PO DAILY [facility] Last Admin: 06/20/17 09:26 Dose: Not Given - Labs Labs: 06/20/17 12:08 06/20/17 12:08 PT 15.1 SECONDS (9.7-12.2) H 06/15/17 22:18 INR 1.3 06/15/17 22:18 APTT 26 SECONDS (21-34) 06/15/17 22:18 - Constitutional Appears: Well - Head Exam Head Exam: ATRAUMATIC, NORMAL INSPECTION, NORMOCEPHALIC - Eye Exam Eye Exam: EOMI, Normal appearance, PERRL Pupil Exam: NORMAL ACCOMODATION, PERRL - ENT Exam ENT Exam: Mucous Membranes Moist, Normal Exam - Neck Exam Neck Exam: Full ROM, Normal Inspection. absent: Lymphadenopathy - Respiratory Exam Respiratory Exam: Decreased Breath Sounds - Cardiovascular Exam Cardiovascular Exam: REGULAR RHYTHM, +S1, +S2 - GI/Abdominal Exam GI & Abdominal Exam: Soft, Diminished Bowel Sounds - Rectal Exam Rectal Exam: Deferred
--- NOTE | 2017-06-20 22:18 | CP.PCM.PN ---
Subjective - Date & Time of Evaluation Date of Evaluation: 06/20/17 Time of Evaluation: 16:00 - Subjective Subjective: No complaints. Objective - Vital Signs/Intake and Output Vital Signs (last 24 hours): Temp Pulse Resp BP Pulse Ox 98.1 F 111 H 20 121/71 99 06/20/17 16:02 06/20/17 16:02 06/20/17 16:02 06/20/17 16:02 06/20/17 16:02 - Medications Medications: Current Medications Ferrous Sulfate (Feosol) 325 mg PO DAILY [facility] Last Admin: 06/20/17 09:26 Dose: Not Given Ferric Sodium Gluconate Complex 125 mg/ Sodium Chloride 110 mls @ 220 mls/hr IVPB DAILY [facility] Stop: 06/25/17 10:01 Last Admin: 06/20/17 10:45 Dose: Not Given Megestrol Acetate (Megace) 40 mg PO DAILY [facility] Last Admin: 06/20/17 09:26 Dose: Not Given Ondansetron HCl (Zofran Inj) 4 mg IVP DAILY@ONCE PRN PRN Reason: Nausea/Vomiting Last Admin: 06/17/17 13:48 Dose: 4 mg Pantoprazole Sodium (Protonix Ec Tab) 40 mg PO DAILY [facility] Last Admin: 06/20/17 09:26 Dose: Not Given - Labs Labs: 06/20/17 12:08 06/20/17 12:08 PT 15.1 SECONDS (9.7-12.2) H 06/15/17 22:18 INR 1.3 06/15/17 22:18 APTT 26 SECONDS (21-34) 06/15/17 22:18 - Head Exam Head Exam: ATRAUMATIC - Eye Exam Eye Exam: Normal appearance - ENT Exam ENT Exam: Mucous Membranes Dry - Respiratory Exam Respiratory Exam: NORMAL BREATHING PATTERN - Cardiovascular Exam Cardiovascular Exam: +S1, +S2 - GI/Abdominal Exam GI & Abdominal Exam: Normal Bowel Sounds Assessment and Plan (1) Anemia Assessment & Plan: chronic disease tumor bleed; appears resolved at this time Status: Acute (2) Breast cancer Assessment & Plan: deferred systemic therapy Status: Acute
[2017-06-21 07:57] LABS: ALB/GLOB RATIO 0.6 (1.0-2.1); ALBUMIN 2.4 g/dL (3.5-5.0); ALT/SGPT 19 U/L (9-52); AST/SGOT 75 U/L (14-36); BLOOD UREA NITROGEN 18 mg/dL (7-17); GFR AFRICAN-AMERICAN > 60; GFR NON-AFRICAN AMERICAN > 60
[2017-06-21 08:01] LABS: BASO # 0.1 K/uL (0.0-0.2); BASO % 0.4 % (0.0-2.0); EOS # 0.1 K/uL (0.0-0.7); HEMOGLOBIN 8.1 g/dL (11.0-16.0); LYMPH # 1.4 K/uL (1.0-4.3); LYMPH % 11.4 % (20.0-40.0); MEAN CELL VOLUME 85.3 fL (81.0-99.0); MEAN CORPUSCULAR HEMOGLOBIN 30.6 pg (27.0-31.0); MEAN CORPUSCULAR HGB CONC 35.8 g/dL (33.0-37.0); MEAN PLATELET VOLUME 8.5 fL (7.2-11.7); MONO # 0.6 K/uL (0.0-0.8); MONO % 4.9 % (0.0-10.0); NEUT # 10.4 K/uL (1.8-7.0); NEUT % 82.3 % (50.0-75.0); NRBC % 0.1 % (0.0-2.0); RBC 2.64 Mil/uL (3.80-5.20); RED CELL DISTRIBUTION WIDTH 16.7 % (11.5-14.5); WHITE BLOOD COUNT 12.7 K/uL (4.8-10.8)
[2017-06-21] MEDS: Ferric Sodium Gluconat Complex 125 MG in Sodium Chloride 0.9% 100 ML IVPB SCH (10:58)
[2017-06-21] MEDS: Pantoprazole 40 mg EC Tab PO SCH (11:36)
--- NOTE | 2017-06-21 13:39 | CP.PCM.PN ---
Subjective - Date & Time of Evaluation Date of Evaluation: 06/21/17 Time of Evaluation: 13:15 - Subjective Subjective: DISCUSSED LABS WITH DR. DUKE IN PREPARATION OF D/C HOME. TO TRANSFUSE ONE UNIT OF PR[facility] THEN OK TO D/C PT. DISCUSSED WITH PT AND SON AND THEY ARE IN AGREEMENT. TRANSFUSION ORDERED. SURGICAL RESIDENTS TO CHANGE PT'S DRESSING TODAY. NO FURTHER ORDERS. Objective - Vital Signs/Intake and Output Vital Signs (last 24 hours): Temp Pulse Resp BP Pulse Ox 98.5 F 102 H 20 123/74 97 06/21/17 07:00 06/21/17 07:57 06/21/17 07:00 06/21/17 07:00 06/21/17 07:00 Intake and Output: 06/21/17 06/21/17 06:59 18:59 Intake Total 150 Output Total 400 Balance -250 - Medications Medications: Current Medications Ferrous Sulfate (Feosol) 325 mg PO DAILY [facility] Last Admin: 06/21/17 11:36 Dose: Not Given Ferric Sodium Gluconate Complex 125 mg/ Sodium Chloride 110 mls @ 220 mls/hr IVPB DAILY [facility] Stop: 06/25/17 10:01 Last Admin: 06/21/17 10:58 Dose: 220 mls/hr Megestrol Acetate (Megace) 40 mg PO DAILY [facility] Last Admin: 06/21/17 11:36 Dose: Not Given Ondansetron HCl (Zofran Inj) 4 mg IVP DAILY@ONCE PRN PRN Reason: Nausea/Vomiting Last Admin: 06/17/17 13:48 Dose: 4 mg Pantoprazole Sodium (Protonix Ec Tab) 40 mg PO DAILY [facility] Last Admin: 06/21/17 11:36 Dose: Not Given - Labs Labs: 06/21/17 06:55 06/21/17 06:55 PT 15.1 SECONDS (9.7-12.2) H 06/15/17 22:18 INR 1.3 06/15/17 22:18 APTT 26 SECONDS (21-34) 06/15/17 22:18
--- NOTE | 2017-06-21 18:36 | CP.PCM.PN ---
Subjective - Date & Time of Evaluation Date of Evaluation: 06/21/17 Time of Evaluation: 09:40 - Subjective Subjective: clinically same Objective - Vital Signs/Intake and Output Vital Signs (last 24 hours): Temp Pulse Resp BP Pulse Ox 98.3 F 109 H 20 124/75 100 06/21/17 15:58 06/21/17 16:00 06/21/17 15:58 06/21/17 15:58 06/21/17 15:58 Intake and Output: 06/21/17 06/21/17 06:59 18:59 Intake Total 150 Output Total 400 Balance -250 - Medications Medications: Current Medications Ferrous Sulfate (Feosol) 325 mg PO DAILY [facility] Last Admin: 06/21/17 11:36 Dose: Not Given Ferric Sodium Gluconate Complex 125 mg/ Sodium Chloride 110 mls @ 220 mls/hr IVPB DAILY [facility] Stop: 06/25/17 10:01 Last Admin: 06/21/17 10:58 Dose: 220 mls/hr Megestrol Acetate (Megace) 40 mg PO DAILY [facility] Last Admin: 06/21/17 11:36 Dose: Not Given Ondansetron HCl (Zofran Inj) 4 mg IVP DAILY@ONCE PRN PRN Reason: Nausea/Vomiting Last Admin: 06/17/17 13:48 Dose: 4 mg Pantoprazole Sodium (Protonix Ec Tab) 40 mg PO DAILY [facility] Last Admin: 06/21/17 11:36 Dose: Not Given Potassium Chloride (K-Dur 20 Meq Er Tab) 20 meq PO DAILY [facility] - Labs Labs: 06/21/17 06:55 06/21/17 06:55 PT 15.1 SECONDS (9.7-12.2) H 06/15/17 22:18 INR 1.3 06/15/17 22:18 APTT 26 SECONDS (21-34) 06/15/17 22:18 - Constitutional Appears: Well - Head Exam Head Exam: ATRAUMATIC, NORMAL INSPECTION, NORMOCEPHALIC - Eye Exam Eye Exam: EOMI, Normal appearance, PERRL Pupil Exam: NORMAL ACCOMODATION, PERRL - ENT Exam ENT Exam: Mucous Membranes Moist, Normal Exam - Neck Exam Neck Exam: Full ROM, Normal Inspection. absent: Lymphadenopathy - Respiratory Exam Respiratory Exam: Decreased Breath Sounds - Cardiovascular Exam Cardiovascular Exam: REGULAR RHYTHM, +S1, +S2 - GI/Abdominal Exam GI & Abdominal Exam: Soft, Diminished Bowel Sounds - Rectal Exam Rectal Exam: Deferred
--- NOTE | 2017-06-21 22:26 | CP.PCM.PN ---
Subjective - Date & Time of Evaluation Date of Evaluation: 06/21/17 Time of Evaluation: 18:50 - Subjective Subjective: No complaints. Objective - Vital Signs/Intake and Output Vital Signs (last 24 hours): Temp Pulse Resp BP Pulse Ox 98.7 F 105 H 20 115/65 100 06/21/17 21:46 06/21/17 21:46 06/21/17 21:46 06/21/17 21:46 06/21/17 15:58 Intake and Output: 06/21/17 06/22/17 18:59 06:59 Intake Total 325 Output Total 300 Balance 25 - Medications Medications: Current Medications Ferrous Sulfate (Feosol) 325 mg PO DAILY [facility] Last Admin: 06/21/17 11:36 Dose: Not Given Ferric Sodium Gluconate Complex 125 mg/ Sodium Chloride 110 mls @ 220 mls/hr IVPB DAILY [facility] Stop: 06/25/17 10:01 Last Admin: 06/21/17 10:58 Dose: 220 mls/hr Megestrol Acetate (Megace) 40 mg PO DAILY [facility] Last Admin: 06/21/17 11:36 Dose: Not Given Ondansetron HCl (Zofran Inj) 4 mg IVP DAILY@ONCE PRN PRN Reason: Nausea/Vomiting Last Admin: 06/17/17 13:48 Dose: 4 mg Pantoprazole Sodium (Protonix Ec Tab) 40 mg PO DAILY [facility] Last Admin: 06/21/17 11:36 Dose: Not Given Potassium Chloride (K-Dur 20 Meq Er Tab) 20 meq PO DAILY [facility] - Labs Labs: 06/21/17 06:55 06/21/17 06:55 PT 15.1 SECONDS (9.7-12.2) H 06/15/17 22:18 INR 1.3 06/15/17 22:18 APTT 26 SECONDS (21-34) 06/15/17 22:18 - Head Exam Head Exam: ATRAUMATIC - Eye Exam Eye Exam: Normal appearance - ENT Exam ENT Exam: Mucous Membranes Dry - Respiratory Exam Respiratory Exam: NORMAL BREATHING PATTERN - Cardiovascular Exam Cardiovascular Exam: +S1, +S2 - GI/Abdominal Exam GI & Abdominal Exam: Normal Bowel Sounds Assessment and Plan (1) Anemia Assessment & Plan: chronic disease, tumor bleed which appears resolved transfusion support Status: Acute (2) Breast cancer Assessment & Plan: stage IV HER2 positive deferred systemic therapy Status: Acute
[2017-06-22] MEDS: Pantoprazole 40 mg EC Tab PO SCH (10:00)
[2017-06-22] MEDS ORDERED: Potassium Chloride 20 mEq ER Tab PO SCH (10:00)
[2017-06-22] MEDS: Ferric Sodium Gluconat Complex 125 MG in Sodium Chloride 0.9% 100 ML IVPB SCH (10:34)
[2017-06-22 12:10] LABS: BASO # 0.1 K/uL (0.0-0.2); BASO % 0.5 % (0.0-2.0); EOS # 0.1 K/uL (0.0-0.7); EOS % 0.8 % (0.0-4.0); HEMOGLOBIN 8.8 g/dL (11.0-16.0); LYMPH # 1.3 K/uL (1.0-4.3); LYMPH % 9.1 % (20.0-40.0); MEAN CORPUSCULAR HEMOGLOBIN 30.5 pg (27.0-31.0); MEAN CORPUSCULAR HGB CONC 35.9 g/dL (33.0-37.0); MEAN PLATELET VOLUME 8.6 fL (7.2-11.7); MONO # 0.6 K/uL (0.0-0.8); MONO % 4.5 % (0.0-10.0); NEUT % 85.1 % (50.0-75.0); NRBC % 0.1 % (0.0-2.0); RBC 2.89 Mil/uL (3.80-5.20); RED CELL DISTRIBUTION WIDTH 16.2 % (11.5-14.5); WHITE BLOOD COUNT 14.1 K/uL (4.8-10.8)
[2017-06-22 12:19] LABS: PLATELET COUNT 127 K/uL (130-400)
[2017-06-22 12:29] LABS: ALB/GLOB RATIO 0.7 (1.0-2.1); ALBUMIN 2.4 g/dL (3.5-5.0); ALT/SGPT 23 U/L (9-52); AST/SGOT 82 U/L (14-36); BLOOD UREA NITROGEN 19 mg/dL (7-17); GFR AFRICAN-AMERICAN > 60; GFR NON-AFRICAN AMERICAN > 60
[2017-06-22 14:21] LABS: BANDS 7 % (0-2); BASOPHIL 1 % (0-2); LYMPHOCYTE 7 % (20-40); METAMYELOCYTE 1 % (0-0); MONOCYTE 6 % (0-10); NEUTROPHIL 78 % (50-75); PLATELET ESTIMATE SLIGHTLY DECREASED (NORMAL); TOTAL CELLS COUNTED 100
[2017-06-22 14:22] LABS: ANISOCYTOSIS SLIGHT; GIANT PLATELETS PRESENT
[2017-06-22 15:51] VITALS: BP 112/71; PULSE 114; TEMP 98.4; O2SAT 98
--- NOTE | 2017-06-22 15:51 | CP.PCM.PN ---
Subjective - Date & Time of Evaluation Date of Evaluation: 06/22/17 Time of Evaluation: 15:51 - Subjective Subjective: PATIENT WAS ADMITTED FOR BLEEDING; DENIES CHEST PAIN, SOB BUT SOME DISCOMFORT WHEN PATIENT CHANGING POSITION OR WHEN HER DRESSING BEING CHANGE NO SIGN OF DISTRESS NOTED Objective - Vital Signs/Intake and Output Vital Signs (last 24 hours): Temp Pulse Resp BP Pulse Ox 98.4 F 114 H 20 112/71 98 06/22/17 15:50 06/22/17 15:50 06/22/17 15:50 06/22/17 15:50 06/22/17 15:50 Intake and Output: 06/22/17 06/22/17 06:59 18:59 Intake Total 650 Output Total 1000 Balance -350 - Medications Medications: Current Medications Ferrous Sulfate (Feosol) 325 mg PO DAILY [facility] Last Admin: 06/22/17 10:00 Dose: Not Given Ferric Sodium Gluconate Complex 125 mg/ Sodium Chloride 110 mls @ 220 mls/hr IVPB DAILY [facility] Stop: 06/25/17 10:01 Last Admin: 06/22/17 10:34 Dose: 220 mls/hr Megestrol Acetate (Megace) 40 mg PO DAILY [facility] Last Admin: 06/22/17 10:00 Dose: Not Given Ondansetron HCl (Zofran Inj) 4 mg IVP DAILY@ONCE PRN PRN Reason: Nausea/Vomiting Last Admin: 06/17/17 13:48 Dose: 4 mg Pantoprazole Sodium (Protonix Ec Tab) 40 mg PO DAILY [facility] Last Admin: 06/22/17 10:00 Dose: Not Given Potassium Chloride (K-Dur 20 Meq Er Tab) 20 meq PO DAILY [facility] Last Admin: 06/22/17 10:00 Dose: Not Given - Labs Labs: 06/22/17 12:06 06/22/17 12:06 PT 15.1 SECONDS (9.7-12.2) H 06/15/17 22:18 INR 1.3 06/15/17 22:18 APTT 26 SECONDS (21-34) 06/15/17 22:18 Assessment and Plan - Assessment and Plan (Free Text) Assessment: PATIENT WAS SEEN AND EXAMINED AT THE BEDSIDE LEFT FEMORAL TLC REMOVE [place] BREAST DRESSING CHANGE BY SURGICAL TEAM AND LOOK DRY AND INTACT LUNG SOUND CLEAR [place] LATEST HEMOGLOBIN IS 8.8 NO SIGN OF BLEED OR DISTRESS NOTED DISCUSS WITH PMD WHO CLEAR FOR DC FOLLOW WITH DR Gisella GRAMAJO IN 1 WEEK AT HIS OFFICE --CALL FOR APPOINTMENT FOLLOW UP WITH DR DUKE AT HIS OFFICE IN 1 WEEK ---CALL FOR APPOINTMENT FOLLOW UP WITH DR HINES 1-2 WEEK ---CALL FOR APPOINTMENT WOUND CARE ARRANGE FOR HOME CARE SERVICE CONTINUE ALL YOUR HOME MEDICATION ORDER NEW PRESCRIPTION GIVEN SURGICEL FOR WOUND CARE DRESSING CHANGE DIRECTED CALL DR GRAMAJO OR DR DUKE OR GO TO THE EMERGENCY ROOM IF SYMPTOMS RETURN OR WORSENING DISCUSS WITH PATIENT WHO AGREE AND VERBLIZED UNDERSTANDING AND CONCERN ABOUT THE SURGICEL BUT A PRESCRIPTION WAS PROVIDED TO THE PT
--- NOTE | 2017-06-22 16:01 | CP.PCM.PN ---
Subjective - Date & Time of Evaluation Date of Evaluation: 06/22/17 Time of Evaluation: 15:20 - Subjective Subjective: Feels weak Objective - Vital Signs/Intake and Output Vital Signs (last 24 hours): Temp Pulse Resp BP Pulse Ox 98.4 F 114 H 20 112/71 98 06/22/17 15:50 06/22/17 15:50 06/22/17 15:50 06/22/17 15:50 06/22/17 15:50 Intake and Output: 06/22/17 06/22/17 06:59 18:59 Intake Total 650 Output Total 1000 Balance -350 - Medications Medications: Current Medications Ferrous Sulfate (Feosol) 325 mg PO DAILY [facility] Last Admin: 06/22/17 10:00 Dose: Not Given Ferric Sodium Gluconate Complex 125 mg/ Sodium Chloride 110 mls @ 220 mls/hr IVPB DAILY [facility] Stop: 06/25/17 10:01 Last Admin: 06/22/17 10:34 Dose: 220 mls/hr Megestrol Acetate (Megace) 40 mg PO DAILY [facility] Last Admin: 06/22/17 10:00 Dose: Not Given Ondansetron HCl (Zofran Inj) 4 mg IVP DAILY@ONCE PRN PRN Reason: Nausea/Vomiting Last Admin: 06/17/17 13:48 Dose: 4 mg Pantoprazole Sodium (Protonix Ec Tab) 40 mg PO DAILY [facility] Last Admin: 06/22/17 10:00 Dose: Not Given Potassium Chloride (K-Dur 20 Meq Er Tab) 20 meq PO DAILY [facility] Last Admin: 06/22/17 10:00 Dose: Not Given - Labs Labs: 06/22/17 12:06 06/22/17 12:06 PT 15.1 SECONDS (9.7-12.2) H 06/15/17 22:18 INR 1.3 06/15/17 22:18 APTT 26 SECONDS (21-34) 06/15/17 22:18 - Constitutional Appears: Cachectic - Head Exam Head Exam: ATRAUMATIC - Eye Exam Eye Exam: Normal appearance - ENT Exam ENT Exam: Mucous Membranes Dry - Respiratory Exam Respiratory Exam: NORMAL BREATHING PATTERN - Cardiovascular Exam Cardiovascular Exam: +S1, +S2 - GI/Abdominal Exam GI & Abdominal Exam: Normal Bowel Sounds Assessment and Plan (1) Anemia Assessment & Plan: chronic disease, tumor bleed appears resolved s/p PRBC transfusion Status: Acute (2) Breast cancer Assessment & Plan: stage IV HER2 positive deferred systemic therapy Status: Acute
--- NOTE | 2017-06-22 18:46 | CP.PCM.PN ---
Subjective - Date & Time of Evaluation Date of Evaluation: 06/22/17 Time of Evaluation: 18:45 Objective - Vital Signs/Intake and Output Vital Signs (last 24 hours): Temp Pulse Resp BP Pulse Ox 98.4 F 114 H 20 112/71 98 06/22/17 15:50 06/22/17 15:50 06/22/17 15:50 06/22/17 15:50 06/22/17 15:50 Intake and Output: 06/22/17 06/22/17 06:59 18:59 Intake Total 650 Output Total 1000 Balance -350 - Medications Medications: Current Medications Ferrous Sulfate (Feosol) 325 mg PO DAILY [facility] Last Admin: 06/22/17 10:00 Dose: Not Given Ferric Sodium Gluconate Complex 125 mg/ Sodium Chloride 110 mls @ 220 mls/hr IVPB DAILY [facility] Stop: 06/25/17 10:01 Last Admin: 06/22/17 10:34 Dose: 220 mls/hr Megestrol Acetate (Megace) 40 mg PO DAILY [facility] Last Admin: 06/22/17 10:00 Dose: Not Given Ondansetron HCl (Zofran Inj) 4 mg IVP DAILY@ONCE PRN PRN Reason: Nausea/Vomiting Last Admin: 06/17/17 13:48 Dose: 4 mg Pantoprazole Sodium (Protonix Ec Tab) 40 mg PO DAILY [facility] Last Admin: 06/22/17 10:00 Dose: Not Given Potassium Chloride (K-Dur 20 Meq Er Tab) 20 meq PO DAILY [facility] Last Admin: 06/22/17 10:00 Dose: Not Given - Labs Labs: 06/22/17 12:06 06/22/17 12:06 PT 15.1 SECONDS (9.7-12.2) H 06/15/17 22:18 INR 1.3 06/15/17 22:18 APTT 26 SECONDS (21-34) 06/15/17 22:18
== END 2017-06-22 18:53 | disposition home or self-care (01) | DRG 812 ==
LOC: C.ER 19:17 → C.9E 22:16 → C.5S 06-16 09:37 → OBSVTOIN 06-17 08:48
PROVIDERS: ADMIT Internal Medicine Nephrology; ATTEND Internal Medicine Nephrology
PROC: 30233N1 Transfusion of Nonautologous Red Blood Cells into Peripheral Vein, Percutaneous Approach (ICD-10-PCS; principal; 2017-06-16)
PROC: 05HN33Z Insertion of Infusion Device into Left Internal Jugular Vein, Percutaneous Approach (ICD-10-PCS; 2017-06-17)
PROC: 05PYX3Z Removal of Infusion Device from Upper Vein, External Approach (ICD-10-PCS; 2017-06-22)
DX: D62 Acute posthemorrhagic anemia (principal); C50.912 Malignant neoplasm of unspecified site of left female breast; M06.9 Rheumatoid arthritis, unspecified; M19.90 Unspecified osteoarthritis, unspecified site; F06.4 Anxiety disorder due to known physiological condition; Z17.1 Estrogen receptor negative status [ER-]; Z17.0 Estrogen receptor positive status [ER+]